=== PATIENT | female | born 1945 | race Caucasian/White ===

== ENCOUNTER → 2019-03-16 | Outpatient (CLI) | payer MEDICARE, OTHER ==
[~2019-03-16] MED LIST: ASPI-983 PO; BUDE10.2 IH; DIAZ10TA3 PO; DIAZ5TAB49 PO; FLUT16SP22 NS; FURO-125 PO; IPRA3AMP31 IH; LISI-552 PO; METO-333 PO; MINO2.5T PO; MONT10TA24 PO; NICO-588 TD; OMEP20TA33 PO; OMEP40CA27 PO; PARO20TA5 PO; POTA10CA43 PO; PRD10T PO; RT-ALBUINH IH; SIMV40TA25 PO; SPIR25TA5 PO; TIOT18CA2 IH
--- NOTE | 2019-03-16 14:45 | Diagnostic Imaging Report ---
PROCEDURE: MR imaging of the brain without contrast. TECHNIQUE: Multiplanar, multisequence MR imaging of the brain was performed without contrast. INDICATION: Headaches. COMPARISON: No prior MRI brain studies are available for comparison. FINDINGS: Ventricles and sulci are consistent with the patient's age. There are fairly significant periventricular and subcortical white matter signal abnormalities, likely on the basis of chronic microvascular ischemia. No diffusion restriction is identified to suggest acute ischemia. The normal expected flow voids within the carotid siphons are seen. No acute intra-axial or extra-axial hemorrhage is detected. The corpus callosum is unremarkable. The sella and parasellar structures are unremarkable. IMPRESSION: Changes of chronic microvascular ischemia. No acute intracranial process is detected. Dictated by: Dictated on workstation # [id number]
== END ==
LOC: RAD 13:45
PROVIDERS: ATTEND Nurse Practitioner Family
DX: G45.9 Transient cerebral ischemic attack, unspecified (principal)
CPT/HCPCS: 70551

== ENCOUNTER 2020-08-29 11:34 | Emergency (ER) | payer MEDICARE, OTHER ==
[~2020-08-29] VITALS: Ht 149 cm; Wt 65.0 kg
[~2020-08-29 11:34] MED LIST changes: +ASPI-1238 PO; -ASPI-983 PO; -LISI-552 PO; +LISI20TA26 PO; -MONT10TA24 PO; +MONT10TA32 PO; -NICO-588 TD; +NICO-685 TD; -OMEP40CA27 PO; +OMEP40CA6 PO
[2020-08-29] MEDS ORDERED: HYDROcodone/APAP 5 MG/325 MG (LORTAB) TAB PO ONE (11:45)
--- NOTE | 2020-08-29 11:46 | ED Upper Extremity ---
General Stated Complaint: R SHOULDER PAIN Source: patient Exam Limitations: no limitations History of Present Illness Date Seen by Provider: Aug 29, 2020 Time Seen by Provider: 11:43 Initial Comments To ER by [facility] from home with reports of a fall after she tripped over her oxygen tubing. She has COPD and wears oxygen at 3 L/min per nasal can nula all the time. She did not hit her head, denies any neck pain. She complains of pain to the proximal right humerus and right forearm. Denies any hip pain and she was able to walk to the EMS cot. No back pain no abdominal pain no chest pain or other extremity pain. Onset: just prior to arrival Severity: moderate Pain/Injury Location: right shoulder, right forearm Method of Injury: fell Modifying Factors: Worse With Movement Allergies and Home Medications Allergies Coded Allergies: Sulfa (Sulfonamide Antibiotics) (Verified Allergy, Unknown, 02/05/15) amlodipine (Verified Allergy, Unknown, 02/05/15) Home Medications Albuterol Sulfate 8.5 Gm Hfa.aer.ad, 2 PUFF IH Q4H PRN for SHORTNESS OF BREATH, (Reported) Aspirin 81 Mg Tablet.dr, 81 MG PO DAILY, (Reported) Budesonide/Formoterol Fumarate 10.2 Gm Hfa.aer.ad, 1 PUFF IH DAILY, (Reported) Diazepam 10 Mg Tablet, 10 MG PO BID PRN for ANXIETY Prescribed by: LORENA OSULLIVAN on 05/06/15904 Fluticasone Propionate 16 Gm Tucker.susp, 2 SPRAY NS DAILY, (Reported) Furosemide 20 Mg Tablet, 20 MG PO DAILY Prescribed by: LORENA OSULLIVAN on 05/06/15904 Hydrocodone/Acetaminophen 1 Each Tablet, 1 TAB PO Q4H PRN for PAIN-MODERATE (5- 7) Prescribed by: ARTEMIO ARMAS on 08/29/20 1336 Ipratropium/Albuterol Sulfate 3 Ml Ampul.neb, 3 ML IH Q6H PRN for SHORTNESS OF BREATH, (Reported) Lisinopril 20 Mg Tablet, 20 MG PO BID, (Reported) LAST FILLED #90 12-11-14 Metoprolol Tartrate 25 Mg Tablet, 25 MG PO BID, (Reported) Minoxidil 2.5 Mg Tablet, 2.5 MG PO BID, (Reported) LAST FILLED #360 08-21-14 Montelukast Sodium 10 Mg Tablet, 10 MG PO DAILY, (Reported) LAST FILLED #90 12-11-14 Nicotine 1 Each Patch.td24, 21 MG TD DAILY Prescribed by: LORENA OSULLIVAN on 05/06/15904 Omeprazole Magnesium 20 Mg Tablet.dr, 20 MG PO DAILY, (Reported) Paroxetine HCl 20 Mg Tablet, 20 MG PO DAILY, (Reported) LAST FILLED #90 05-28-14 Potassium Chloride 10 Meq Capsule.er, 10 MEQ PO DAILY Prescribed by: LORENA OSULLIVAN on 05/06/15904 Prednisone 10 Mg Tab, 10 MG PO DAILY Take 6 tabs(60mg)daily, decrease by 1 tab(10mg) every other day. Prescribed by: LORENA OSULLIVAN on 05/06/15904 Simvastatin 40 Mg Tablet, 40 MG PO HS, (Reported) LAST FILLED #30 03-13-15 Spironolactone 25 Mg Tablet, 12.5 MG PO DAILY, (Reported) TAKES 1/2 (25MG) TABLET Tiotropium [place] 1 Inh Aerp, 1 INH IH DAILY, (Reported) Patient Home Medication List Home Medication List Reviewed: Yes Review of Systems Constitutional: see HPI EENTM: see HPI Respiratory: no symptoms reported Cardiovascular: no symptoms reported Genitourinary: no symptoms reported Musculoskeletal: see HPI Skin: no symptoms reported Psychiatric/Neurological: No Symptoms Reported Past Qumfjyg-Bspnsv-Mjiyfv Hx Immunizations Up To Date Tetanus Booster (TDap): More than 5yrs Past Medical History CABG COPD Currently Using CPAP: No Currently Using BIPAP: No Hypertension Reproductive Disorders: No Sexually Transmitted Disease: No HIV/AIDS: No Bladder Infection, UTI-Chronic Gastroesophageal Reflux Sleep Difficulties, Anxiety, Suicide Attempts, Depression Adverse Reaction/Blood Tranf: No Family Medical History Patient reports no known family medical history. No Pertinent Family Hx Physical Exam Vital Signs Vital Signs - First Documented 08/29/20 08/29/20 11:40 13:07 Temp 36.4 Pulse 66 Resp 18 B/P (MAP) 136/72 (93) Pulse Ox 99 O2 Delivery Nasal Cannula O2 Flow Rate 2.00 Capillary Refill : Height, Weight, BMI Height: 4'11.00" Weight: 151lbs. 14.8oz. 68.443757mk; 30.49 BMI Method:Stated General Appearance: WD/WN, no apparent distress Neck: non-tender, full range of motion, normal inspection; No tender lateral, No tender midline; other ( She arrives in an ill fitting c-collar which was removed upon arrival and cleared clinically. No neck pain midline or lateral. She can flex her chin to chest and turn head side to side. No neck or head injury.) Respiratory: chest non-tender, lungs clear, normal breath sounds, no respiratory distress, no accessory muscle use Gastrointestinal: normal bowel sounds, non tender, soft Shoulder: normal inspection, limited ROM, pain Elbow/Forearm: normal inspection, Right, bone tenderness Wrist: Yes normal inspection, Yes non-tender Hand: normal inspection, non-tender Neurologic/Tendon: normal sensation, normal motor functions Neurologic/Psychiatric: alert, normal mood/affect, oriented x 3 Skin: normal color, warm/dry Procedures/Interventions Patient Education: Explained Benefits, Explained Risks, Pt. Ack. Understanding Agreement on procedure with pt: Yes Breath Sounds per Auscultation: Clear Airway Exam: Mouth opens >2 fingers, Neck Full Range of Motion Sedation Adminstration Time: 13:11 Total Time spent in CS 10 minutes Given Norflex Zofran and hydrocodone. After that once all staff were present including myself, RN, RT, we gave 10 mg of etomidate. She was then adequately sedated and with very gentle traction the shoulder very easily reduced. She was then placed in a sling and repeat x-rays were obtained. Few moments later patient awakened. Once her mentation was back to normal she was discharged. Re-examination Time: 14:00 Progress/Results/Core Measures Results/Orders My Orders Orders - ARTEMIO ARMAS APRN Shoulder, Right, 3 Views (08/29/20 11:40) Forearm, Right, 2 Views (08/29/20 11:40) Hydrocodone/Apap 5/325 Tablet (Lortab 5 (08/29/20 11:45) Etomidate Injection (Amidate Injection) (08/29/20 12:30) Ondansetron Injection (Zofran Injectio (08/29/20 12:30) Ns Iv 500 Ml (Sodium Chloride 0.9%) (08/29/20 12:30) Ed Iv/Invasive Line Start (08/29/20 12:28) Shoulder, Right, 1 View (08/29/20 12:41) Orphenadrine Inj (Ed Only) (Norflex Inje (08/29/20 13:00) Hydralazine Injection (Apresoline Inject (08/29/20 13:45) Medications Given in ED Current Medications Medications Dose Ordered Sig/Tamela Route Start Time Stop Time Status Last Admin Dose Admin Acetaminophen/ Hydrocodone Bitart 1 ea ONCE ONCE PO 08/29/20 11:45 08/29/20 11:46 DC 08/29/20 11:56 1 EA Etomidate 10 mg ONCE ONCE IV 08/29/20 12:30 08/29/20 12:31 DC 08/29/20 13:11 10 MG Hydralazine HCl 10 mg ONCE ONCE IV 08/29/20 13:45 08/29/20 13:46 DC 08/29/20 13:36 10 MG Ondansetron HCl 4 mg ONCE ONCE IVP 08/29/20 12:30 08/29/20 12:31 DC 08/29/20 12:59 4 MG Orphenadrine Citrate 30 mg ONCE ONCE IV 08/29/20 13:00 08/29/20 13:01 DC 08/29/20 12:59 30 MG Vital Signs/I&O 08/29/20 08/29/20 08/29/20 08/29/20 11:40 13:07 13:09 13:15 Temp 36.4 36.4 Pulse 66 66 69 Resp 18 18 12 18 B/P (MAP) 136/72 (93) 212/98 Pulse Ox 99 98 9 O2 Delivery Nasal Cannula Nasal Cannula Nasal Cannula Nasal Cannula O2 Flow Rate 2.00 2.00 2.00 08/29/20 08/29/20 08/29/20 08/29/20 13:25 13:35 13:44 13:55 Pulse 66 64 66 72 Resp 14 14 16 16 B/P (MAP) 200/92 204/90 199/78 143/66 Pulse Ox 97 98 99 O2 Delivery Nasal Cannula Nasal Cannula Nasal Cannula Nasal Cannula O2 Flow Rate 2.00 2.00 2.00 2.00 08/29/20 08/29/20 14:05 14:25 Temp 36.4 Pulse 73 67 Resp 16 16 B/P (MAP) 156/64 129/57 (93) Pulse Ox 93 93 O2 Delivery Room Air Room Air Diagnostic Imaging Diagonstic Imaging: CT Comments NAME: ADRIANA FELDER [facility] REC#: [id number] PT STATUS: REG ER : 1945 PHYSICIAN: ARTEMIO ARMAS APRN ADMIT DATE: 08/29/20/ER Draft Date of Exam:08/29/20 SHOULDER, RIGHT, 3 VIEWS INDICATION: Fall with right shoulder pain. AP, oblique, and transscapular views of the right shoulder are obtained at 12:12 p.m. There is anterior or subcoracoid dislocation of the right glenohumeral joint. There is no associated fracture. AC joint shows mild degenerative change. IMPRESSION: Anterior or subcoracoid dislocation of the right glenohumeral joint without associated fracture. Dictated on workstation # [id number] Dict: 08/29/20 1213 Trans: 08/29/20 1216 [facility] [id number] Interpreted by: JACKIE SPARROW MD Electronically signed by: Departure Impression Primary Impression: Shoulder dislocation Disposition: 01 HOME, SELF-CARE Condition: Stable Departure-Patient Inst. Decision time for Depature: 12:42 Referrals: NO,LOCAL PHYSICIAN (PCP) Primary Care Physician MONIQUE ALVAREZ MD, MICHAEL P MD Patient Instructions: Shoulder Dislocation (DC) Add. Discharge Instructions: 1. Wear the sling for the next week. Follow-up with orthopedics. Pain medication as directed. Scripts Hydrocodone/Acetaminophen (Hydrocodone-Acetamin 5-325 mg) 1 Each Tablet 1 TAB PO Q4H PRN for PAIN-MODERATE (5-7), #14 TAB Prov: ARTEMIO ARMAS APRN 08/29/20 ARTEMIO ARMAS APRN Aug 29, 2020 11:46
--- NOTE | 2020-08-29 12:16 | Diagnostic Imaging Report ---
INDICATION: Fall with right forearm pain. TECHNIQUE: AP and lateral views of the right forearm were obtained. FINDINGS: No fracture or acute bony abnormality is seen. IMPRESSION: Negative right forearm. Dictated by: Dictated on workstation # [id number]
--- NOTE | 2020-08-29 12:16 | Diagnostic Imaging Report ---
INDICATION: Fall with right shoulder pain. AP, oblique, and transscapular views of the right shoulder are obtained at 12:12 p.m. There is anterior or subcoracoid dislocation of the right glenohumeral joint. There is no associated fracture. AC joint shows mild degenerative change. IMPRESSION: Anterior or subcoracoid dislocation of the right glenohumeral joint without associated fracture. Dictated by: Dictated on workstation # [id number]
[2020-08-29] MEDS ORDERED: NS IV 500 ML 500 ML IV SCH (12:30)
[2020-08-29] MEDS ORDERED: ETOMIDATE IV SOLN 20 MG/10 ML VIAL IV ONE (12:30)
[2020-08-29] MEDS ORDERED: ONDANSETRON 4 MG/2 ML (SDV) Z0FRAN IVP ONE (12:30)
[2020-08-29] MEDS ORDERED: ORPHENADRINE 60 MG/2 ML (NORFLEX) AMP (ED ONLY) IV ONE (13:00)
[2020-08-29] MEDS ORDERED: ACHD5005 PO (13:35)
[2020-08-29] MEDS ORDERED: hydrALAZINE (APESOLINE) 20 MG/ML VIAL IV ONE (13:45)
--- NOTE | 2020-08-29 13:54 | Diagnostic Imaging Report ---
INDICATION: Postreduction. COMPARISON: Imaging from the same date. TECHNIQUE: Single frontal radiograph of the right shoulder dated 08/29/2020. FINDINGS: Improved positioning of the glenohumeral joint relationship, appearing appropriate based upon the single frontal radiograph. Mild degenerative changes of the acromioclavicular joint. No acute fracture identified. IMPRESSION: Interval reduction of previously noted glenohumeral joint dislocation. This could be confirmed with a scapular Y view. Dictated by: Dictated on workstation # [id number]
[2020-08-29 14:25] VITALS: BP 129/57
== END 2020-08-29 14:28 | disposition home or self-care (01) ==
LOC: EDUNIT# 11:34 → ER 11:36
DX: S43.004A Unspecified dislocation of right shoulder joint, initial encounter (principal); F41.9 Anxiety disorder, unspecified; I10 Essential (primary) hypertension; K21.9 Gastro-esophageal reflux disease without esophagitis; J44.9 Chronic obstructive pulmonary disease, unspecified; F32.9 Major depressive disorder, single episode, unspecified; Z79.82 Long term (current) use of aspirin; Z79.52 Long term (current) use of systemic steroids; Z79.899 Other long term (current) drug therapy; W01.0XXA Fall on same level from slipping, tripping and stumbling without subsequent striking against object, initial encounter
CPT/HCPCS: 73020; 73030; 73090; 93041; 99285; A4565

== ENCOUNTER → 2020-09-09 | Outpatient (CLI) | payer MEDICARE, OTHER ==
[~2020-09-09] MED LIST changes: +ACHD5005 PO
--- NOTE | 2020-09-09 10:49 | Diagnostic Imaging Report ---
INDICATION: Follow-up dislocation. COMPARISON: 08/29/2020 FINDINGS: Two radiographic views of the right shoulder were obtained. Glenohumeral joint space remains appropriate. No acute osseous abnormality is seen. There is no evidence of acute fracture or dislocation. No unexpected radiopaque foreign bodies are identified. Included portions of the right lung are clear. IMPRESSION: 1. No acute abnormality of the right shoulder. Dictated by: Dictated on workstation # [id number]
== END ==
LOC: ORTHO 10:15
PROVIDERS: ATTEND Orthopaedic Surgery
DX: S43.014D Anterior dislocation of right humerus, subsequent encounter (principal); X58.XXXD Exposure to other specified factors, subsequent encounter
CPT/HCPCS: 73030; G0463; 99203

== ENCOUNTER → 2020-09-25 | Outpatient (CLI) | payer MEDICARE, OTHER | LOC: ORTHO 08:20 | PROVIDERS: ATTEND Orthopaedic Surgery | DX: S43.014A Anterior dislocation of right humerus, initial encounter (principal); X58.XXXA Exposure to other specified factors, initial encounter | CPT/HCPCS: 99212 ==

== ENCOUNTER → 2020-10-16 | Outpatient (CLI) | payer MEDICARE, OTHER | LOC: ORTHO 10:19 | PROVIDERS: ATTEND Orthopaedic Surgery | DX: S43.014A Anterior dislocation of right humerus, initial encounter (principal); X58.XXXA Exposure to other specified factors, initial encounter | CPT/HCPCS: 99212 ==

== ENCOUNTER 2022-02-12 11:50 | Inpatient (IN) | payer MEDICARE, OTHER ==
[~2022-02-12] VITALS: Ht 165 cm; Wt 64.4 kg
[~2022-02-12 11:50] MED LIST changes: +ALBU8.5H6 IH; +MONT-40 PO; -MONT10TA32 PO; -RT-ALBUINH IH
--- NOTE | 2022-02-12 12:04 | ED Respiratory ---
General Chief Complaint: Respiratory Problems Stated Complaint: SOB Source: patient History of Present Illness Date Seen by Provider: Feb 12, 2022 Time Seen by Provider: 11:50 Initial Comments Patient is a 76-year-old who presents to the emergency room chief complaint of worsening shortness of breath, productive cough subjective fevers and chills over the last week. She wears 3-1/2 L of oxygen mostly at night but in the last week where he gets throughout the day as well. She took off her oxygen this morning to go smoke a cigarette and became profoundly more dyspneic. She was found to have sats in the mid 80s on her 3-1/2 L on EMS arrival. She states her cough is productive of green sputum. She saw her nurse practitioner about a week ago and was given a cough medication that she states "did not help". She denies chest pain. She has had bypass back in 2011. She does not currently follow with a grassland conservationist. She does not think she has a history of congestive heart failure. No nausea or vomiting. No problems with bowel or bladder. She states she takes her medications every day, specifically the ones in the morning but occasionally misses her night meds. She did have a DuoNeb breathing treatment prior to arrival. Only sick contact is her neighbor. Unknown diagnosis. Timing/Duration: week, getting worse Severity: severe Prior Episodes/Possible Cause: frequent episodes Modifying Factors: Improves With Albuterol Inhaler, Improves With Albuterol Nebulizer Associated Symptoms: fever/chills, lightheadedness, nasal congestion, shortness of breath Allergies and Home Medications Allergies Coded Allergies: Sulfa (Sulfonamide Antibiotics) (Verified Allergy, Unknown, 02/05/15) amlodipine (Verified Allergy, Unknown, 02/05/15) Patient Home Medication List Home Medication List Reviewed: Yes Albuterol Sulfate (Ventolin Hfa) 8.5 Gm Hfa.aer.ad, 2 PUFF IH Q4H PRN for SHORTNESS OF BREATH, (Reported) Entered as Reported by: STACIE VITAL on 04/29/15 1129 Aspirin (Aspirin EC) 81 Mg Tablet.dr, 81 MG PO DAILY, (Reported) Entered as Reported by: STACIE VITAL on 04/29/15 1129 Budesonide/Formoterol Fumarate (Symbicort 160-4.5 Mcg Inhaler) 10.2 Gm Hfa.aer.ad, 1 PUFF IH DAILY, (Reported) Entered as Reported by: STACIE VITAL on 04/29/15 1129 Diazepam (Diazepam) 10 Mg Tablet, 10 MG PO BID PRN for ANXIETY Prescribed by: LORENA OSULLVIAN on 05/06/15 09 Fluticasone Propionate (Fluticasone Propionate) 16 Gm Tinnie.susp, 2 SPRAY NS DAILY, (Reported) Entered as Reported by: CORETTA FORTUNE on 02/05/15 151 Furosemide (Lasix) 20 Mg Tablet, 20 MG PO DAILY Prescribed by: LORENA OSULLIVAN on 05/06/15 09 Hydrocodone/Acetaminophen (Hydrocodone-Acetamin 5-325 mg) 1 Each Tablet, 1 TAB PO Q4H PRN for PAIN-MODERATE (5-7) Prescribed by: ARTEMIO ARMAS on 08/29/20 1336 Ipratropium/Albuterol Sulfate (Iprat-Albut 0.5-3(2.5) mg/3 ml) 3 Ml Ampul.neb, 3 ML IH Q6H PRN for SHORTNESS OF BREATH, (Reported) Entered as Reported by: STACIE VITAL on 04/29/15 1133 Lisinopril (Lisinopril) 20 Mg Tablet, 20 MG PO BID, (Reported) Entered as Reported by: CORETTA FORTUNE on 02/05/15 151 Metoprolol Tartrate (Metoprolol Tartrate) 25 Mg Tablet, 25 MG PO BID, (Reported) Entered as Reported by: STACIE VITAL on 04/29/15 1129 Minoxidil (Minoxidil) 2.5 Mg Tablet, 2.5 MG PO BID, (Reported) Entered as Reported by: STACIE VITAL on 04/29/15 1145 Montelukast Sodium (Montelukast Sodium) 10 Mg Tablet, 10 MG PO DAILY, (Reported) Entered as Reported by: CORETTA FORTUNE on 02/05/15 151 Nicotine (Nicotine Patch) 1 Each Patch.td24, 21 MG TD DAILY Prescribed by: LORENA OSULLIVAN on 05/06/15 09 Omeprazole Magnesium (Prilosec Otc) 20 Mg Tablet.dr, 20 MG PO DAILY, (Reported) Entered as Reported by: STACIE VITAL on 04/29/15 1129 Paroxetine HCl (Paroxetine HCl) 20 Mg Tablet, 20 MG PO DAILY, (Reported) Entered as Reported by: STACIE VITAL on 04/29/15 1145 Potassium Chloride (Potassium Chloride) 10 Meq Capsule.er, 10 MEQ PO DAILY Prescribed by: LORENA OSULLIVAN on 05/06/15 09 Prednisone (Prednisone) 10 Mg Tab, 10 MG PO DAILY Prescribed by: LORENA OSULLIVAN on 05/06/15 0905 Simvastatin (Simvastatin) 40 Mg Tablet, 40 MG PO HS, (Reported) Entered as Reported by: STACIE VITAL on 04/29/15 1129 Spironolactone (Spironolactone) 25 Mg Tablet, 12.5 MG PO DAILY, (Reported) Entered as Reported by: CORETTA FORTUNE on 02/05/15 1511 Tiotropium Giltner (Spiriva) 1 Inh Aerp, 1 INH IH DAILY, (Reported) Entered as Reported by: STACIE VITAL on 04/29/15 1207 Review of Systems Review of Systems Constitutional: see HPI, chills, fever EENTM: nose congestion Respiratory: cough, phlegm (green), short of breath Cardiovascular: no symptoms reported Gastrointestinal: loss of appetite Genitourinary: no symptoms reported Musculoskeletal: no symptoms reported Skin: no symptoms reported Psychiatric/Neurological: No Symptoms Reported All Other Systems Reviewed Negative Unless Noted: Yes Past Hqisjtm-Siqovc-Nzipsm Hx Immunizations Up To Date Tetanus Booster (TDap): More than 5yrs Past Medical History CABG COPD Currently Using CPAP: No Currently Using BIPAP: No Hypertension Reproductive Disorders: No Sexually Transmitted Disease: No HIV/AIDS: No Bladder Infection, UTI-Chronic Gastroesophageal Reflux Sleep Difficulties, Anxiety, Suicide Attempts, Depression Adverse Reaction/Blood Tranf: No Family Medical History Patient reports no known family medical history. No Pertinent Family Hx Physical Exam Capillary Refill : Height: 4'11.00" Weight: 151lbs. 14.8oz. [id number]; 29.00 BMI Method:Stated General Appearance: WD/WN, mild distress, other (appears chronically ill) Eyes: Bilateral Eye Normal Inspection, Bilateral Eye PERRL, Bilateral Eye EOMI HEENT: other (dry oral mucosa) Neck: full range of motion, normal inspection Respiratory: accessory muscle use, crackles (throughout both lungs; no significant wheezing), rales, rhonchi Cardiovascular: regular rate, rhythm Gastrointestinal: non tender, soft Extremities: normal range of motion, non-tender, normal inspection, pedal edema (trace) Neurologic/Psychiatric: alert, normal mood/affect, oriented x 3, other (mentation a little slow; ) Skin: normal color Focused Exam Lactate Level 02/12/22 12:25: Lactic Acid Level 0.88 Lactic Acid Level Laboratory Tests Test 02/12/22 12:25 Lactic Acid Level 0.88 MMOL/L (0.50-2.00) Procedures/Interventions Patient Education: Explained Benefits, Explained Risks, Pt. Ack. Understanding Breath Sounds per Auscultation: Clear Airway Exam: Mouth opens >2 fingers, Neck Full Range of Motion Sedation Adminstration Time: 1311 Re-examination Time: 1400 Progress/Results/Core Measures Suspected Sepsis SIRS Temperature: Pulse: Respiratory Rate: Laboratory Tests 02/12/22 12:25: White Blood Count 11.4H Blood Pressure / Mean: 02/12/22 12:25: Lactic Acid Level 0.88 Laboratory Tests 02/12/22 12:25: Creatinine 0.65, INR Comment 0.9, Platelet Count 178, Total Bilirubin 0.2 Results/Orders Lab Results Laboratory Tests Test 02/12/22 12:25 02/12/22 13:02 Range/Units White Blood Count 11.4 H 4.3-11.0 10^3/uL Red Blood Count 4.73 3.80-5.11 10^6/uL Hemoglobin 14.0 11.5-16.0 g/dL Hematocrit 45 35-52 % Mean Corpuscular Volume 94 80-99 fL Mean Corpuscular Hemoglobin 30 25-34 pg Mean Corpuscular Hemoglobin Concent 32 32-36 g/dL Red Cell Distribution Width 12.9 10.0-14.5 % Platelet Count 178 130-400 10^3/uL Mean Platelet Volume 12.5 H 9.0-12.2 fL Immature Granulocyte % (Auto) 1 % Neutrophils (%) (Auto) 88 H 42-75 % Lymphocytes (%) (Auto) 5 L 12-44 % Monocytes (%) (Auto) 7 0-12 % Eosinophils (%) (Auto) 0 0-10 % Basophils (%) (Auto) 0 0-10 % Neutrophils # (Auto) 10.0 H 1.8-7.8 10^3/uL Lymphocytes # (Auto) 0.6 L 1.0-4.0 10^3/uL Monocytes # (Auto) 0.7 0.0-1.0 10^3/uL Eosinophils # (Auto) 0.0 0.0-0.3 10^3/uL Basophils # (Auto) 0.0 0.0-0.1 10^3/uL Immature Granulocyte # (Auto) 0.1 0.0-0.1 10^3/uL Neutrophils % (Manual) 90 % Lymphocytes % (Manual) 2 % Monocytes % (Manual) 3 % Eosinophils % (Manual) 0 % Basophils % (Manual) 0 % Band Neutrophils 5 % Blood Morphology Comment NORMAL Prothrombin Time 12.3 12.2-14.7 SEC INR Comment 0.9 0.8-1.4 Activated Partial Thromboplast Time 24 24-35 SEC Sodium Level 127 L 135-145 MMOL/L Potassium Level 6.8 *H 3.6-5.0 MMOL/L Chloride Level 93 L 98-107 MMOL/L Carbon Dioxide Level 23 21-32 MMOL/L Anion Gap 11 5-14 MMOL/L Blood Urea Nitrogen 9 7-18 MG/DL Creatinine 0.65 0.60-1.30 MG/DL Estimat Glomerular Filtration Rate 92 BUN/Creatinine Ratio 14 Glucose Level 115 H 70-105 MG/DL Lactic Acid Level 0.88 0.50-2.00 MMOL/L Calcium Level 10.2 H 8.5-10.1 MG/DL Corrected Calcium 10.3 H 8.5-10.1 MG/DL Magnesium Level 1.2 L 1.6-2.4 MG/DL Total Bilirubin 0.2 0.1-1.0 MG/DL Aspartate Amino Transf (AST/SGOT) 46 H 5-34 U/L Alanine Aminotransferase (ALT/SGPT) 18 0-55 U/L Alkaline Phosphatase 91 40-136 U/L Myoglobin 125.4 H 10.0-92.0 NG/ML Troponin I < 0.028 <0.028 NG/ML B-Type Natriuretic Peptide 202.5 H <100.0 PG/ML Total Protein 8.5 H 6.4-8.2 GM/DL Albumin 3.9 3.2-4.5 GM/DL Procalcitonin 0.08 <0.10 NG/ML Serum Alcohol < 10 <10 MG/DL Blood Gas Puncture Site LT BRACHIAL Blood Gas Patient Temperature 98.8 Arterial Blood pH 7.24 *L 7.37-7.43 Arterial Blood Partial Pressure CO2 74 *H 35-45 MMHG Arterial Blood Partial Pressure O2 108 H 79-93 MMHG Arterial Blood HCO3 31 H 23-27 MMOL/L Arterial Blood Total CO2 33.0 H 21.0-31.0 MMOL/L Arterial Blood Oxygen Saturation 94 94-100 % Arterial Blood Base Excess 3.9 H -2.5-2.5 MMOL/L Mundo Test NA Blood Gas Ventilator Setting NO Blood Gas Inspired Oxygen 4L My Orders Orders - XIMENA CORTES MD Cbc With Automated Diff (02/12/22 12:00) Magnesium (02/12/22 12:00) Chest 1 View, Ap/Pa Only (02/12/22 12:00) Ekg Tracing (02/12/22 12:00) Comprehensive Metabolic Panel (02/12/22 12:00) Myoglobin Serum (02/12/22 12:00) Protime With Inr (02/12/22 12:00) Partial Thromboplastin Time (02/12/22 12:00) O2 (02/12/22 12:00) Monitor-Rhythm Ecg Trace Only (02/12/22 12:00) Lipid Panel (02/13/22 06:00) Ed Iv/Invasive Line Start (02/12/22 12:00) Troponin I Cheo (02/12/22 12:00) Procalcitonin (Pct) (02/12/22 12:00) Bnp Cheo (02/12/22 12:00) Blood Culture (02/12/22 12:00) Lactic Acid Analyzer (02/12/22 12:00) Covid 19 Inhouse Test (02/12/22 12:04) Influenza A And B By Pcr (02/12/22 12:04) Isolation Central Supply Req (02/12/22 12:04) Alcohol (02/12/22 12:29) Blood Culture (02/12/22 12:25) Manual Differential (02/12/22 12:25) Arterial Blood Gas (02/12/22 12:59) Arterial Blood Draw - Obtain (02/12/22 ) Ed Admission (Communication) (02/12/22 13:25) Communication For Respiratory (02/12/22 13:25) Methylprednisolone Sod Succ (Solu-Medrol (02/12/22 13:30) Vital Signs/I&O Capillary Refill : ECG Initial ECG Impression Date: Feb 12, 2022 Initial ECG Impression Time: 12:20 Initial ECG Rate: 82 Initial ECG Rhythm: Normal Sinus Initial ECG Intervals: Normal Comment some baseline artifact in lead V6; no ST elevation or depression Diagnostic Imaging Diagonstic Imaging: Xray Plain Films/CT/US/NM/MRI: chest Comments [facility] [place] NAME: ADRIANA FELDER [facility] REC#: [id number] PT STATUS: REG ER : 1945 PHYSICIAN: XIMENA CORTES MD ADMIT DATE: 02/12/22/ER Draft Date of Exam:02/12/22 CHEST 1 VIEW, AP/PA ONLY EXAMINATION: Chest 1 view HISTORY: Chest pain COMPARISON: 04/30/2015 FINDINGS: Heart size and pulmonary vasculature are normal. The lungs are clear without consolidation, pleural effusion, or pneumothorax. The osseous structures are intact. Surgical changes from median sternotomy. IMPRESSION: 1. No acute radiographic abnormality in the chest. Dictated on workstation # [id number] Dict: 02/12/22 1302 Trans: 02/12/22 1303 [facility] [id number] Interpreted by: MATTHIAS MARTINEZ DO Electronically signed by: Departure Communication (Admissions) Time/Spoke to Admitting Phy: 13:[address] Tuttle; IP to ICU Impression Primary Impression: Acute exacerbation of chronic obstructive pulmonary disease (COPD) Additional Impressions: Bronchitis Respiratory acidosis with metabolic acidosis Disposition: ADMITTED INPATIENT Condition: Critical Admissions Decision to Admit Reason: Admit from ER (General) Decision to Admit/Date: Feb 12, 2022 Time/Decision to Admit Time: 13:25 Departure-Patient Inst. Referrals: NO,LOCAL PHYSICIAN (PCP/Family) Primary Care Physician XIMENA CORTES MD Feb 12, 2022 12:04
[2022-02-12 12:48] LABS: BASOPHILS % (AUTO) 0 % (0-10); EOSINOPHILS % (AUTO) 0 % (0-10); HEMATOCRIT 45 % (35-52); LYMPHOCYTES # (AUTO) 0.6 10^3/uL (1.0-4.0); LYMPHOCYTES % (AUTO) 5 % (12-44); MEAN CORPUSCULAR HEMOGLOBIN 30 pg (25-34); MEAN CORPUSCULAR HGB CONC 32 g/dL (32-36); MEAN CORPUSCULAR VOLUME 94 fL (80-99); MEAN PLATELET VOLUME 12.5 fL (9.0-12.2); MONOCYTES # (AUTO) 0.7 10^3/uL (0.0-1.0); MONOCYTES % (AUTO) 7 % (0-12); NEUTROPHILS % (AUTO) 88 % (42-75); PLATELET COUNT 178 10^3/uL (130-400); WHITE BLOOD COUNT 11.4 10^3/uL (4.3-11.0)
[2022-02-12 12:58] LABS: ALBUMIN 3.9 GM/DL (3.2-4.5)
[2022-02-12 12:59] LABS: CALCIUM 10.2 MG/DL (8.5-10.1); INR 0.9 (0.8-1.4); PROTHROMBIN TIME PATIENT 12.3 SEC (12.2-14.7)
[2022-02-12 13:01] LABS: TOTAL PROTEIN 8.5 GM/DL (6.4-8.2)
[2022-02-12 13:02] LABS: BILIRUBIN,TOTAL 0.2 MG/DL (0.1-1.0)
--- NOTE | 2022-02-12 13:03 | Diagnostic Imaging Report ---
EXAMINATION: Chest 1 view HISTORY: Chest pain COMPARISON: 04/30/2015 FINDINGS: Heart size and pulmonary vasculature are normal. The lungs are clear without consolidation, pleural effusion, or pneumothorax. The osseous structures are intact. Surgical changes from median sternotomy. IMPRESSION: 1. No acute radiographic abnormality in the chest. Dictated by: Dictated on workstation # [id number]
[2022-02-12 13:04] LABS: CREATININE SERUM 0.65 MG/DL (0.60-1.30)
[2022-02-12 13:05] LABS: ABG BASE EXCESS 3.9 MMOL/L (-2.5-2.5); ABG OXYGEN SATURATION 94 % (94-100); ABG PO2 108 MMHG (79-93)
[2022-02-12 13:07] LABS: MAGNESIUM 1.2 MG/DL (1.6-2.4)
[2022-02-12 13:11] LABS: BAND NEUTROPHILS 5 %; BASOPHILS % (MANUAL) 0 %; EOSINOPHILS % (MANUAL) 0 %; LYMPHOCYTES % (MANUAL) 2 %; MONOCYTES % (MANUAL) 3 %; NEUTROPHILS % (MANUAL) 90 %; RBC MORPH NORMAL
[2022-02-12 13:13] LABS: ABG PCO2 74 MMHG (35-45); ABG PH 7.24 (7.37-7.43); INSPIRED O2 4L; PATIENT TEMP 98.8; VENTILATOR NO
[2022-02-12 13:14] LABS: POTASSIUM 6.8 MMOL/L (3.6-5.0)
[2022-02-12] MEDS ORDERED: methylPREDNISolone 125 MG (Solu-MEDROL) VIAL IVP ONE (13:30)
[2022-02-12 13:43] VITALS: BP_DIAS 194
[2022-02-12] MEDS ORDERED: RT-ALBUTEROL SULF 2.5 MG/3 ML PRE-MIX VIAL INH ONE (13:45)
--- NOTE | 2022-02-12 14:07 | History & Physical ---
BRIANA LOZADA 02/12/22 1407: History of Present Illness History of Present Illness Reason for visit/HPI Ms. Mobley is a 76 year old female with PMHx of CAD, CABG in 2011, COPD, and HTN who presents to the [facility] ED with progressive SOA, productive cough, subjective fever and chills, sore throat, head ache, nausea, and one episode of emesis this morning. Patient reports her symptoms began approximately 1 week ago. Patient states she usually wears 3.5 L of supplemental O2 at night but has been requiring O2 during the day throughout the past week. Patient states this morning she removed her O2 to smoke a cigarette and became increasingly SOB. Patient states she used her inhaler this morning around 10:00 that slightly improved her symptoms. Patient states she currently feels dizzy and groggy. Patient denies chest pain at this time. While at rest patient denies SOA. Patient has been admitted to Hospitalist service to receive BiPap therapy and for medical management. Patient is agreeable to admission. Date of Admission 02/12/2022 Date Seen by a Provider: Feb 12, 2022 Time Seen by a Provider: 13:15 I consulted on this patient on 02/12/22 13:58 Attending Physician Anum,Local Physician Admitting Physician Admitting Physician: Dr. Schuster Consult Allergies and Home Medications Allergies Coded Allergies: Sulfa (Sulfonamide Antibiotics) (Verified Allergy, Unknown, 02/05/15) amlodipine (Verified Allergy, Unknown, 02/05/15) Patient Home Medication List Home Medication List Reviewed: Yes Albuterol Sulfate (Ventolin Hfa) 8.5 Gm Hfa.aer.ad, 2 PUFF IH Q4H PRN for SHORTNESS OF BREATH, (Reported) Entered as Reported by: STACIE VITAL on 04/29/15 1129 Aspirin (Aspirin EC) 81 Mg Tablet.dr, 81 MG PO DAILY, (Reported) Entered as Reported by: STACIE VITAL on 04/29/15 1129 Budesonide/Formoterol Fumarate (Symbicort 160-4.5 Mcg Inhaler) 10.2 Gm Hfa.aer.ad, 1 PUFF IH DAILY, (Reported) Entered as Reported by: STACIE VITAL on 04/29/15 1129 Diazepam (Diazepam) 10 Mg Tablet, 10 MG PO BID PRN for ANXIETY Prescribed by: LORENA OSULLIVAN on 05/06/15 09 Fluticasone Propionate (Fluticasone Propionate) 16 Gm [place].susp, 2 SPRAY NS DAILY, (Reported) Entered as Reported by: CORETTA FORTUNE on 02/05/15 151 Furosemide (Lasix) 20 Mg Tablet, 20 MG PO DAILY Prescribed by: LORENA OSULLIVAN on 05/06/15 09 Hydrocodone/Acetaminophen (Hydrocodone-Acetamin 5-325 mg) 1 Each Tablet, 1 TAB PO Q4H PRN for PAIN-MODERATE (5-7) Prescribed by: ARTEMIO ARMAS on 08/29/20 1336 Ipratropium/Albuterol Sulfate (Iprat-Albut 0.5-3(2.5) mg/3 ml) 3 Ml Ampul.neb, 3 ML IH Q6H PRN for SHORTNESS OF BREATH, (Reported) Entered as Reported by: STACIE VITAL on 04/29/15 1133 Lisinopril (Lisinopril) 20 Mg Tablet, 20 MG PO BID, (Reported) Entered as Reported by: CORETTA FORTUNE on 02/05/15 151 Metoprolol Tartrate (Metoprolol Tartrate) 25 Mg Tablet, 25 MG PO BID, (Reported) Entered as Reported by: STACIE VITAL on 04/29/15 1129 Minoxidil (Minoxidil) 2.5 Mg Tablet, 2.5 MG PO BID, (Reported) Entered as Reported by: STACIE VITAL on 04/29/15 1145 Montelukast Sodium (Montelukast Sodium) 10 Mg Tablet, 10 MG PO DAILY, (Reported) Entered as Reported by: CORETTA FORTUNE on 02/05/15 151 Nicotine (Nicotine Patch) 1 Each Patch.td24, 21 MG TD DAILY Prescribed by: LORENA OSULLIVAN on 05/06/15 09 Omeprazole Magnesium (Prilosec Otc) 20 Mg Tablet.dr, 20 MG PO DAILY, (Reported) Entered as Reported by: STACIE VITAL on 04/29/15 1129 Paroxetine HCl (Paroxetine HCl) 20 Mg Tablet, 20 MG PO DAILY, (Reported) Entered as Reported by: STACIE VITAL on 04/29/15 1145 Potassium Chloride (Potassium Chloride) 10 Meq Capsule.er, 10 MEQ PO DAILY Prescribed by: LORENA OSULLIVAN on 05/06/15904 Prednisone (Prednisone) 10 Mg Tab, 10 MG PO DAILY Prescribed by: LORENA OSULLIVAN on 05/06/15904 Simvastatin (Simvastatin) 40 Mg Tablet, 40 MG PO HS, (Reported) Entered as Reported by: STACIE VITAL on 04/29/15 1129 Spironolactone (Spironolactone) 25 Mg Tablet, 12.5 MG PO DAILY, (Reported) Entered as Reported by: CORETTA FORTUNE on 02/05/15 1511 Tiotropium [place] (Spiriva) 1 Inh Aerp, 1 INH IH DAILY, (Reported) Entered as Reported by: STACIE VITAL on 04/29/15 1207 Past Iakvtcd-Bcmvlq-Yyxsfj Hx Patient Social History Tobacco Use?: Yes Tobacco type used: Cigarettes Smoking Status: Current Everyday Smoker (1.5 ppd) Substance use?: No Alcohol Use?: No Immunizations Up To Date Date of Influenza Vaccine: Feb 05, 2015 Date of Pneumonia Vaccine: Jan 29, 2014 Current Status Primary Language: Guatemalan Past Medical History Surgeries: CABG, Hysterectomy (partial) COPD Currently Using CPAP: No Currently Using BIPAP: No 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 Heart Disease (father), COPD (father) Review of Systems Constitutional: malaise EENTM: throat pain Respiratory: cough, phlegm (productive cough with green sputum), short of breath, wheezing Cardiovascular: no symptoms reported; No chest pain Gastrointestinal: nausea, vomiting (one episode of emesis this morning) Genitourinary: frequency (increased frequency ), incontinence (associated with frequency coughing) Musculoskeletal: no symptoms reported Skin: no symptoms reported Psychiatric/Neurological: Other ("groggy") All Other Systems Reviewed Negative Unless Noted: Yes Physical Exam Vital Signs Vital Signs - First Documented 02/12/22 13:43 Pulse 74 Resp 19 Pulse Ox 98 O2 Flow Rate 30.00 Capillary Refill : Height, Weight, BMI Height: 4'11.00" Weight: 151lbs. 14.8oz. 68.270489mz; 29.00 BMI Method:Stated General Appearance: Moderate Distress (moderate respiratory distress) HEENT: PERRL/EOMI, Other (unable to visualize pharnyx) Respiratory: No Accessory Muscle Use, Crackles (bilateral), Decreased Breath Sounds, Wheezing (expiratory wheezing bilaterally, more prominent on L) Cardiovascular: Regular Rate, Rhythm, No Edema Gastrointestinal: Normal Bowel Sounds, Non Tender, Soft Extremity: No Pedal Edema Neurologic/Psychiatric: Alert, No Motor/Sensory Deficits Skin: Normal Color, Warm/Dry Assessment/Plan Assessment and Plan 1. Acute hypoxic respiratory failure secondary to COPD exacerbation with respiratory acidosis -BiPap therapy for respiratory support and admission to ICU for management -Nebulized breathing treatments with albuterol-ipratropium 2.5mg-0.5mg Q1H for 2-3 doses -> Q2H for 2 additional doses as needed -Systemic glucocorticoids - methylprednisolone 125mg once IVP -Empiric antibiotic therapy with azithromycin 500mg PO daily for 3 days -Repeat BMP -AM CBC -Diazepam 5mg once for anxiety related to BiPap 2. Influenza A -Patient has had symptoms for at least one week thus does not meet requirement for Tamiflu therapy -Continue respiratory support -Pain management with tylenol 325mg PO PRN Q4-6H 3. HTN with BP of 216/84 in ED -Resume home medication metoprolol 25mg PO BID -Monitor BP 4. Hypomagnesemia with Mg of 1.2 -Replace with magnesium 100ml IV daily -Repeat Mg with AM lab studies Admission Diagnosis Admission Status: Inpatient Order (span 2 midnights) Reason for Inpatient Admission: Acute hypoxic respiratory failure secondary to COPD exacerbation with respiratory acidosis MALIKA SCHUSTER MD 02/12/22 1438: Allergies and Home Medications Allergies Coded Allergies: Sulfa (Sulfonamide Antibiotics) (Verified Allergy, Unknown, 02/05/15) amlodipine (Verified Allergy, Unknown, 02/05/15) Patient Home Medication List Albuterol Sulfate (Ventolin Hfa) 8.5 Gm Hfa.aer.ad, 2 PUFF IH Q4H PRN for SHORTNESS OF BREATH, (Reported) Entered as Reported by: STACIE VITAL on 04/29/15 1129 Aspirin (Aspirin EC) 81 Mg Tablet.dr, 81 MG PO DAILY, (Reported) Entered as Reported by: STACIE VITAL on 04/29/15 1129 Budesonide/Formoterol Fumarate (Symbicort 160-4.5 Mcg Inhaler) 10.2 Gm Hfa.ae r.ad, 1 PUFF IH DAILY, (Reported) Entered as Reported by: STACIE VITAL on 04/29/15 1129 Diazepam (Diazepam) 10 Mg Tablet, 10 MG PO BID PRN for ANXIETY Prescribed by: LORENA OSULLIVAN on 05/06/15 09 Fluticasone Propionate (Fluticasone Propionate) 16 Gm [place].susp, 2 SPRAY NS DAILY, (Reported) Entered as Reported by: CORETTA FORTUNE on 02/05/15 151 Furosemide (Lasix) 20 Mg Tablet, 20 MG PO DAILY Prescribed by: LORENA OSULLIVAN on 05/06/15 09 Hydrocodone/Acetaminophen (Hydrocodone-Acetamin 5-325 mg) 1 Each Tablet, 1 TAB PO Q4H PRN for PAIN-MODERATE (5-7) Prescribed by: ARTEMIO ARMAS on 08/29/20 1336 Ipratropium/Albuterol Sulfate (Iprat-Albut 0.5-3(2.5) mg/3 ml) 3 Ml Ampul.neb, 3 ML IH Q6H PRN for SHORTNESS OF BREATH, (Reported) Entered as Reported by: STACIE VITAL on 04/29/15 1133 Lisinopril (Lisinopril) 20 Mg Tablet, 20 MG PO BID, (Reported) Entered as Reported by: CORETTA FORTUNE on 02/05/15 151 Metoprolol Tartrate (Metoprolol Tartrate) 25 Mg Tablet, 25 MG PO BID, (Reported) Entered as Reported by: STACIE VITAL on 04/29/15 1129 Minoxidil (Minoxidil) 2.5 Mg Tablet, 2.5 MG PO BID, (Reported) Entered as Reported by: STACIE VITAL on 04/29/15 1145 Montelukast Sodium (Montelukast Sodium) 10 Mg Tablet, 10 MG PO DAILY, (Reported) Entered as Reported by: CORETTA FORTUNE on 02/05/15 151 Nicotine (Nicotine Patch) 1 Each Patch.td24, 21 MG TD DAILY Prescribed by: LORENA OSULLIVAN on 05/06/15 09 Omeprazole Magnesium (Prilosec Otc) 20 Mg Tablet.dr, 20 MG PO DAILY, (Reported) Entered as Reported by: STACIE VITAL on 04/29/15 1129 Paroxetine HCl (Paroxetine HCl) 20 Mg Tablet, 20 MG PO DAILY, (Reported) Entered as Reported by: STACIE VITAL on 04/29/15 1145 Potassium Chloride (Potassium Chloride) 10 Meq Capsule.er, 10 MEQ PO DAILY Prescribed by: LORENA OSULLIVAN on 05/06/15 0905 Prednisone (Prednisone) 10 Mg Tab, 10 MG PO DAILY Prescribed by: LORENA OSULLIVAN on 05/06/15 0905 Simvastatin (Simvastatin) 40 Mg Tablet, 40 MG PO HS, (Reported) Entered as Reported by: STACIE VITAL on 04/29/15 1129 Spironolactone (Spironolactone) 25 Mg Tablet, 12.5 MG PO DAILY, (Reported) Entered as Reported by: CORETTA FORTUNE on 02/05/15 1511 Tiotropium [place] (Spiriva) 1 Inh Aerp, 1 INH IH DAILY, (Reported) Entered as Reported by: STACIE VITAL on 04/29/15 1207 Past Xyptbmk-Ooukwq-Xztogv Hx Family Medical History Patient reports no known family medical history. Assessment/Plan Assessment and Plan Patient was admitted to the hospital secondary to acute hypoxic and hypercapnic respiratory failure secondary to COPD from lower respiratory tract infection and influenza A. She required BiPAP therapy in the emergency department to maintain her respiratory status but is doing much better upon my exam. She is able to communicate with me but this is limited due to her BiPAP. She is being admitted to the ICU tonight and we will continue her on steroids. She does not have any infectious etiology so we will not begin any IV antibiotics. She is also unfortunately outside of the window for Tamiflu so we will not begin that either. Provide supportive care for her influenza diagnosis. MAT protocol has been ordered as well. If she continues to do well inform patient she can trial off BiPAP during dinnertime. Supervisory-Addendum Brief Verification & Attestation Participated in pt care: history, MDM, physical Personally performed: exam, history, MDM, supervision of care Care discussed with: Medical Student Procedures: n/a Results interpretation: Verified all documentation Verification and Attestation of Medical Student E/M Service A medical student performed and documented this service in my presence. I reviewed and verified all information documented by the medical student and made modifications to such information, when appropriate. I personally performed the physical exam and medical decision making. Malika Schuster, Feb 12, 2022,14:38 BRIANA LOZADA Feb 12, 2022 14:07 MALIKA SCHUSTER MD Feb 12, 2022 14:38
[2022-02-12 14:32] LABS: CALCIUM 10.6 MG/DL (8.5-10.1); CREATININE SERUM 0.63 MG/DL (0.60-1.30); POTASSIUM 4.9 MMOL/L (3.6-5.0)
[2022-02-12] MEDS ORDERED: MELATONIN 3 MG TABLET PO PRN ×2 (14:45→21:30)
[2022-02-12] MEDS ORDERED: polyethylene glycoL POWDER 17 GM (MIRALAX) PACK PO PRN (14:45)
[2022-02-12] MEDS ORDERED: ACETAMINOPHEN 325 MG TABLET PO PRN (14:45)
[2022-02-12] MEDS ORDERED: NS IV 500 ML 500 ML IV PRN (14:45)
[2022-02-12] MEDS ORDERED: RT-ALBUTEROL SULF 2.5 MG/3 ML PRE-MIX VIAL INH PRN (14:45)
[2022-02-12] MEDS ORDERED: ANTACID SUSP 30 ML UDC (MYLANTA) PO PRN (14:45)
[2022-02-12] MEDS ORDERED: MILK OF MAGNESIA 400 MG/5 ML 30 ML UDC PO PRN (14:45)
[2022-02-12] MEDS ORDERED: ONDANSETRON 4 MG/2 ML (SDV) Z0FRAN IV PRN (14:45)
[2022-02-12] MEDS ORDERED: CALCIUM CARBONATE 500 MG (TUMS) TAB.CHEW PO PRN (14:45)
[2022-02-12] MEDS: ENOXAPARIN 40 MG/0.4 ML (LOVENOX) SYR SC SCH (16:00)
--- NOTE | 2022-02-12 17:59 | Tele-ICU Consult ---
History of Present Illness History of Present Illness Date Seen by Provider: Feb 12, 2022 Time Seen by Provider: 17:59 Date of Admission (Tele-ICU Physician , consultation as per request of PCP Service provided via interactive audio and video telecommunications E-CARE system to a patient admitted to ICU bed in [facility]. Available chart/ vitals / labs / Images reviewed H&P is from ER notes Patient's information available about PMH, Shx, Fhx allergy reviewed inEMR. ROS as per chart and RN report Now in ICU, hemodynamically stable Video assessment done using teleICU camera, rest of exam as per RN Discussed with RN. Consultants: Hospital course: (02/12) 76F admittted with COPD exac d/t influenza A, hypercarbic, on Bipap A/P Acute hypoxic and hypercarbic resp failure ( on chronic - was on NIPPV in ER , better now on NC o2 ( TRANSCRIPTION 3 l o2 at night - cont to monitor Influenza A ( NEG covid ) - tamiflu not started with presumed dlu > 7 days ago AECOPD due to above - cont nebs , steroids SM 60 q 6 HTN - add prn tx Hyperkalemia - hemolysed - folow Hyponatremia - mild - follow Hypercalcemia - ? ethiology , to follow Lines : , (Central Line Necessity Reviewed) Taylor: OG: Nutrition: Analgesia: Anxiety/ delirium VTE Prophylaxis: diana 40 Stress Ulcer Prophylaxis: Plans in collaboration with bedside consultants and IM MDs. Discussed with RN to reach out if any questions or concerns A total of 31 minutes of critical care time was devoted to this patient today, required to treat and/or prevent further deterioration of critical care condition ( as above ) . I am remotely monitoring this patient from another state. I am unable to do the bedside exam, and history/physical and pertinent information is taken from other notes in the computer and bedside staff. . Allergies and Home Medications Allergies Coded Allergies: Sulfa (Sulfonamide Antibiotics) (Verified Allergy, Unknown, 02/05/15) amlodipine (Verified Allergy, Unknown, 02/05/15) Home Medications Albuterol Sulfate 8.5 Gm Hfa.aer.ad, 2 PUFF IH Q4H PRN for SHORTNESS OF BREATH, (Reported) Aspirin 81 Mg Tablet.dr, 81 MG PO DAILY, (Reported) Budesonide/Formoterol Fumarate 10.2 Gm Hfa.aer.ad, 1 PUFF IH DAILY, (Reported) Diazepam 10 Mg Tablet, 10 MG PO BID PRN for ANXIETY Prescribed by: LORENA OSULLIVAN on 05/06/15904 Fluticasone Propionate 16 Gm [place].susp, 2 SPRAY NS DAILY, (Reported) Furosemide 20 Mg Tablet, 20 MG PO DAILY Prescribed by: LORENA OSULLIVAN on 05/06/15904 Hydrocodone/Acetaminophen 1 Each Tablet, 1 TAB PO Q4H PRN for PAIN-MODERATE (5- 7) Prescribed by: ARTEMIO ARMAS on 08/29/20 1336 Ipratropium/Albuterol Sulfate 3 Ml Ampul.neb, 3 ML IH Q6H PRN for SHORTNESS OF BREATH, (Reported) Lisinopril 20 Mg Tablet, 20 MG PO BID, (Reported) LAST FILLED #90 12-11-14 Metoprolol Tartrate 25 Mg Tablet, 25 MG PO BID, (Reported) Minoxidil 2.5 Mg Tablet, 2.5 MG PO BID, (Reported) LAST FILLED #360 08-21-14 Montelukast Sodium 10 Mg Tablet, 10 MG PO DAILY, (Reported) LAST FILLED #90 12-11-14 Nicotine 1 Each Patch.td24, 21 MG TD DAILY Prescribed by: LORENA OSULLIVAN on 05/06/15904 Omeprazole Magnesium 20 Mg Tablet.dr, 20 MG PO DAILY, (Reported) Paroxetine HCl 20 Mg Tablet, 20 MG PO DAILY, (Reported) LAST FILLED #90 05-28-14 Potassium Chloride 10 Meq Capsule.er, 10 MEQ PO DAILY Prescribed by: LORENA OSULLIVAN on 05/06/15904 Prednisone 10 Mg Tab, 10 MG PO DAILY Take 6 tabs(60mg)daily, decrease by 1 tab(10mg) every other day. Prescribed by: LORENA OSULLIVAN on 05/06/15904 Simvastatin 40 Mg Tablet, 40 MG PO HS, (Reported) LAST FILLED #30 03-13-15 Spironolactone 25 Mg Tablet, 12.5 MG PO DAILY, (Reported) TAKES 1/2 (25MG) TABLET Tiotropium [place] 1 Inh Aerp, 1 INH IH DAILY, (Reported) Past Medical/Social/Family Hx Patient Social History Tobacco Use?: Yes Tobacco type used: Cigars, Cigarettes Smoking Status: Current Everyday Smoker Substance use?: No Alcohol Use?: No Immunizations Up To Date Influenza Vaccine Up-to-Date: No; Not Current Date of Pneumonia Vaccine: Jan 29, 2014 Current Status Primary Language: Luxembourgish Review of Systems Constitutional: see HPI Focused Exam Lactate Level 02/12/22 12:25: Lactic Acid Level 0.88 Height, Weight, BMI Height: 4'11.00" Weight: 151lbs. 14.8oz. 68.752764yq; 20.56 BMI Method:Stated Exam Exam Patient acknowledged, consented, and participated in this virtual visit which was conducted using real time audio/video Vital Signs Date Time Temp Pulse Resp B/P (MAP) Pulse Ox O2 Delivery O2 Flow Rate FiO2 02/12/22 17:35 NIV Bilevel 30.00 02/12/22 17:30 85 19 214/116 (148) 99 NIV Bilevel 30.00 02/12/22 17:00 79 16 186/79 (114) 94 NIV Bilevel 30.00 02/12/22 16:00 73 26 145/69 (94) 93 NIV Bilevel 30.00 02/12/22 16:00 98 02/12/22 16:00 36.6 02/12/22 15:30 66 15 139/115 (123) 93 NIV Bilevel 30.00 02/12/22 14:36 77 02/12/22 14:30 76 45 168/65 (99) 93 NIV Bilevel 30.00 02/12/22 14:22 80 23 98 30.00 02/12/22 13:43 74 19 98 30.00 Height & Weight Height: 4'11.00" Weight: 151lbs. 14.8oz. 68.754746hd; 20.56 BMI Method:Stated General Appearance: No Apparent Distress, Moderate Distress (moderate respiratory distress) HEENT: PERRL/EOMI, Other (unable to visualize pharnyx) Respiratory: No Accessory Muscle Use, Crackles (bilateral), Decreased Breath Sounds, Wheezing (expiratory wheezing bilaterally, more prominent on L) Cardiovascular: Regular Rate, Rhythm, No Edema Gastrointestinal: non tender, soft Extremity: No Pedal Edema Neurologic/Psychiatric: Alert, No Motor/Sensory Deficits Skin: Normal Color, Warm/Dry Results Lab Laboratory Tests 02/12/22 12:25 02/12/22 14:09 Assessment/Plan Assessment/Plan 1 TASIA PADILLA MD Feb 12, 2022 17:59
[2022-02-12] MEDS ORDERED: lisINopril 20 MG (PRINIVIL) TABLET PO NR (18:45)
[2022-02-12] MEDS: methylPREDNISolone 125 MG (Solu-MEDROL) VIAL IV SCH (19:45)
[2022-02-12] MEDS ORDERED: NICOTINE 21 MG (NICODERM) PATCH TD ONE (21:00)
[2022-02-12] MEDS ORDERED: NICOTINE 21 MG (NICODERM) PATCH ONE (21:00)
[2022-02-12] MEDS: RT-ALBUTEROL/IPRATROPIUM 3 ML (DUONEB) VIAL IH SCH (22:53)
[2022-02-13] MEDS: methylPREDNISolone 125 MG (Solu-MEDROL) VIAL IV SCH ×2 (02:07→08:00)
[2022-02-13] MEDS: RT-ALBUTEROL/IPRATROPIUM 3 ML (DUONEB) VIAL IH SCH ×6 (03:03→22:14)
[2022-02-13] MEDS: hydrALAZINE (APESOLINE) 20 MG/ML VIAL IV PRN ×2 (03:14→16:33)
[2022-02-13 04:45] LABS: HEMATOCRIT 41 % (35-52); MEAN CORPUSCULAR HEMOGLOBIN 29 pg (25-34); MEAN CORPUSCULAR HGB CONC 32 g/dL (32-36); MEAN CORPUSCULAR VOLUME 93 fL (80-99); MEAN PLATELET VOLUME 11.3 fL (9.0-12.2); PLATELET COUNT 212 10^3/uL (130-400); WHITE BLOOD COUNT 8.4 10^3/uL (4.3-11.0)
[2022-02-13 05:14] LABS: POTASSIUM 4.3 MMOL/L (3.6-5.0)
[2022-02-13 05:16] LABS: CALCIUM 10.9 MG/DL (8.5-10.1)
[2022-02-13 05:20] LABS: CREATININE SERUM 0.72 MG/DL (0.60-1.30); PHOSPHORUS 2.7 MG/DL (2.3-4.7)
[2022-02-13 05:23] LABS: MAGNESIUM 1.2 MG/DL (1.6-2.4)
[2022-02-13] MEDS: MAGNESIUM 1 GM/100 ML IVPB 100 ML IV SCH ×2 (05:52→06:49)
[2022-02-13] MEDS: POTASSIUM CL 10MEQ/50ML IVPB 50 ML IV SCH (06:19)
[2022-02-13] MEDS: KCL 20 MEQ TAB (K-DUR) PO SCH (06:21)
[2022-02-13] MEDS: toPIRamate 25 MG (TOPAMAX) TAB PO SCH (08:19)
[2022-02-13] MEDS: lisINopril 20 MG (PRINIVIL) TABLET PO SCH (08:19)
--- NOTE | 2022-02-13 09:21 | Progress Note ---
BRIANA LOZADA 02/13/22 0921: Subjective Date Seen by a Provider: Feb 13, 2022 Subjective/Events-last exam Ms. Mobley is a 76 year old female with PMHx of CAD, CABG in 2011, COPD, and HTN who has been admitted to the Hospitalist service for management of acute hypoxic respiratory failure secondary to COPD exacerbation with respiratory acidosis. Patient has also tested positive for influenza A. Patient was admitted to the ICU on 02/12 with BiPap therapy. Patient tolerated BiPap therapy well and was able to transition to supplemental oxygen via nasal cannula in the evening on 02/12. Patient is resting in bed this morning. Patient reports she feels mildly improved from yesterday. Patient denies CP or SOA at rest. Patient denies pain. Patient is currently using 4L supplemental O2 via NC. SpO2 was 91-92% throughout encounter. Patient reports Duoneb treatments are improving her symptoms. Patient is alert and oriented at time of encounter; there is no symptomatic evidence of hypercarbia at this time. Review of Systems General: No Chills HEENT: No Head Aches Pulmonary: No Dyspnea Cardiovascular: No: Chest Pain Gastrointestinal: No: Nausea, Vomiting, Abdominal Pain Genitourinary: No Retention Neurological: No: Weakness Focused Exam Lactate Level 02/12/22 12:25: Lactic Acid Level 0.88 Objective Exam Last Set of Vital Signs Vital Signs Date Time Temp Pulse Resp B/P (MAP) Pulse Ox O2 Delivery O2 Flow Rate FiO2 02/13/22 08:00 89 24 92 Nasal Cannula 4.00 02/13/22 07:30 37.2 02/13/22 07:00 190/87 (121) Capillary Refill : I&O Intake and Output 02/13/22 00:00 Intake Total 300 ml Output Total 400 ml Balance -100 ml Intake Oral 300 ml Output Urine Total 400 ml Daily Weight Change No General: Alert HEENT: Atraumatic Lungs: Other (bilateral expiratory wheezing, decreased air movement in bilateral lung felton) Heart: Regular Rate, No Murmurs Abdomen: Normal Bowel Sounds, Soft Extremities: No Edema, Normal Pulses (L radial pulse +2) Neuro: Normal Speech Psych/Mental Status: Mental Status NL, Mood NL Results Lab Laboratory Tests 02/12/22 12:25: White Blood Count 11.4H, Red Blood Count 4.73, Hemoglobin 14.0, Hematocrit 45, Mean Corpuscular Volume 94, Mean Corpuscular Hemoglobin 30, Mean Corpuscular Hemoglobin Concent 32, Red Cell Distribution Width 12.9, Platelet Count 178, Mean Platelet Volume 12.5H, Immature Granulocyte % (Auto) 1, Neutrophils (%) (Auto) 88H, Lymphocytes (%) (Auto) 5L, Monocytes (%) (Auto) 7, Eosinophils (%) (Auto) 0, Basophils (%) (Auto) 0, Neutrophils # (Auto) 10.0H, Lymphocytes # (Auto) 0.6L, Monocytes # (Auto) 0.7, Eosinophils # (Auto) 0.0, Basophils # (Auto) 0.0, Immature Granulocyte # (Auto) 0.1, Neutrophils % (Manual) 90, Lymphocytes % (Manual) 2, Monocytes % (Manual) 3, Eosinophils % (Manual) 0, Basophils % (Manual) 0, Band Neutrophils 5, Blood Morphology Comment NORMAL, Prothrombin Time 12.3, INR Comment 0.9, Activated Partial Thromboplast Time 24, Sodium Level 127L, Potassium Level 6.8*H, Chloride Level 93L, Carbon Dioxide Level 23, Anion Gap 11, Blood Urea Nitrogen 9, Creatinine 0.65, Estimat Glomerular Filtration Rate 92, BUN/Creatinine Ratio 14, Glucose Level 115H, Lactic Acid Level 0.88, Calcium Level 10.2H, Corrected Calcium 10.3H, Magnesium Level 1.2L, Total Bilirubin 0.2, Aspartate Amino Transf (AST/SGOT) 46H, Alanine Aminotransferase (ALT/SGPT) 18, Alkaline Phosphatase 91, Myoglobin 125.4H, Troponin I < 0.028, B-Type Natriuretic Peptide 202.5H, Total Protein 8.5H, Albumin 3.9, Procalcitonin 0.08, Serum Alcohol < 10 02/12/22 13:02: Blood Gas Puncture Site LT BRACHIAL, Blood Gas Patient Temperature 98.8, Arterial Blood pH 7.24*L, Arterial Blood Partial Pressure CO2 74*H, Arterial Blood Partial Pressure O2 108H, Arterial Blood HCO3 31H, Arterial Blood Total CO2 33.0H, Arterial Blood Oxygen Saturation 94, Arterial Blood Base Excess 3.9H, Mundo Test NA, Blood Gas Ventilator Setting NO, Blood Gas Inspired Oxygen 4L 02/12/22 13:32: Influenza Type A (RT-PCR) DetectedH, Influenza Type B (RT-PCR) Not Detected, SARS-CoV-2 RNA (RT-PCR) Not Detected 02/12/22 14:09: Sodium Level 129L, Potassium Level 4.9, Chloride Level 92L, Carbon Dioxide Level 24, Anion Gap 13, Blood Urea Nitrogen 9, Creatinine 0.63, Estimat Glomerular Filtration Rate 92, BUN/Creatinine Ratio 14, Glucose Level 104, Calcium Level 10.6H 02/13/22 04:23: White Blood Count 8.4, Red Blood Count 4.42, Hemoglobin 13.0, Hematocrit 41, Mean Corpuscular Volume 93, Mean Corpuscular Hemoglobin 29, Mean Corpuscular Hemoglobin Concent 32, Red Cell Distribution Width 12.7, Platelet Count 212, Mean Platelet Volume 11.3, Sodium Level 131L, Potassium Level 4.3, Chloride Level 93L, Carbon Dioxide Level 24, Anion Gap 14, Blood Urea Nitrogen 18, Creatinine 0.72, Estimat Glomerular Filtration Rate 87, BUN/Creatinine Ratio 25, Glucose Level 147H, Calcium Level 10.9H, Phosphorus Level 2.7, Magnesium Level 1.2L, Triglycerides Level 127, Cholesterol Level 262H, LDL Cholesterol Direct 208H, VLDL Cholesterol 25, HDL Cholesterol 33L Assessment/Plan Assessment/Plan Assess & Plan/Chief Complaint 1. Acute hypoxic respiratory failure secondary to COPD exacerbation with respiratory acidosis -BiPap therapy for respiratory support and admission to ICU for management -> transitioned to 4L nasal cannula. Move to med-surg floor on 02/13 -Nebulized Duoneb breathing treatments with -Systemic glucocorticoids - methylprednisolone 125mg once IVP -> Prednisone 40mg PO daily -AM CBC ----Z-u-p-z-e-p-a-m- -5-m-g- -o-n-c-e- -f-o-r- -d-d-m-i-e-t-y- -x-c-x-a-t-e-d- -t-o- -B-i-P-a-p- 2. Influenza A -Patient has had symptoms for at least one week thus does not meet requirement for Tamiflu therapy -Continue respiratory support -Pain management with tylenol 325mg PO PRN Q4-6H 3. HTN -Hydralazine 10mg IVP Q4H if SBP >160 -Carvedilol 6.25mg PO BID -Lisinopril 20mg PO daily -Monitor BP 4. Hypomagnesemia with Mg of 1.2 -> no improvement on 02/13. Continue to replace -Replace with magnesium 100ml IV daily -Repeat Mg with AM lab studies 5. Hyperlipidemia -Total cholesterol 262, LDL 208, HDL 33 -Begin high dose statin therapy - rosuvastatin 20mg PO daily Clinical Quality Measures Admission Status Admission Dx 1. Acute hypoxic respiratory failure secondary to COPD exacerbation with respiratory acidosis -BiPap therapy for respiratory support and admission to ICU for management -Nebulized breathing treatments with albuterol-ipratropium 2.5mg-0.5mg Q1H for 2-3 doses -> Q2H for 2 additional doses as needed -Systemic glucocorticoids - methylprednisolone 125mg once IVP -Empiric antibiotic therapy with azithromycin 500mg PO daily for 3 days -Repeat BMP -AM CBC -Diazepam 5mg once for anxiety related to BiPap 2. Influenza A -Patient has had symptoms for at least one week thus does not meet requirement for Tamiflu therapy -Continue respiratory support -Pain management with tylenol 325mg PO PRN Q4-6H 3. HTN with BP of 216/84 in ED -Resume home medication metoprolol 25mg PO BID -Monitor BP 4. Hypomagnesemia with Mg of 1.2 -Replace with magnesium 100ml IV daily -Repeat Mg with AM lab studies BETHANY TUTTLE MD 02/13/22 1200: Assessment/Plan Assessment/Plan Assess & Plan/Chief Complaint Patient reports feeling much better today. Her breathing has improved and she is off BiPAP. We will plan to transfer her down to the fourth floor. She has had quite elevated blood pressures overnight but her home medications have been restarted and they are starting to improve. She does have hydralazine available as needed. Supervisory-Addendum Brief Verification & Attestation Participated in pt care: history, MDM, physical Personally performed: exam, history, MDM, supervision of care Care discussed with: Medical Student Procedures: n/a Results interpretation: Verified all documentation Verification and Attestation of Medical Student E/M Service A medical student performed and documented this service in my presence. I reviewed and verified all information documented by the medical student and made modifications to such information, when appropriate. I personally performed the physical exam and medical decision making. Bethany Tuttle, Feb 13, 2022,12:00 BRIANA LOZADA Feb 13, 2022 09:21 BETHANY TUTTLE MD Feb 13, 2022 12:00
--- NOTE | 2022-02-13 15:01 | Tele-ICU Progress Note ---
Subjective Date Seen by a Provider: Feb 13, 2022 Time Seen by a Provider: 08:37 Subjective/Events-last exam (Tele-ICU Physician , Progress Note ) Service provided via interactive audio and video telecommunications E-CARE system to a patient admitted to ICU bed in [facility]. 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 ON $ L TODAY Influenza A ( NEG covid ) - tamiflu not started with presumed dlu > 7 days ago AECOPD due to above - cont nebs , steroids SM 60 q 6 -- ON PO TODAY HTN - add prn tx Hyperkalemia - hemolysed - folow Hyponatremia - mild - follow Hypercalcemia - ? ethiology , to follow Lines : , (Central Line Necessity Reviewed) Taylor: VOID OG: Nutrition: po Analgesia: Anxiety/ delirium VTE Prophylaxis: diana 40 Stress Ulcer Prophylaxis: NA Plans in collaboration with bedside consultants and IM MDs. Discussed with RN to reach out if any questions or concerns A total of 15 minutes of critical care time was devoted to this patient today, required to treat and/or prevent further deterioration of critical care condition ( as above ) . I am remotely monitoring this patient from another state. I am unable to do the bedside exam, and history/physical and pertinent information is taken from other notes in the computer and bedside staff. . Sepsis Event Evaluation Height, Weight, BMI Height: 4'11.00" Weight: 151lbs. 14.8oz. [id number]; 20.56 BMI Method:Stated Focused Exam Lactate Level 02/12/22 12:25: Lactic Acid Level 0.88 Exam Exam Patient acknowledged, consented, and participated in this virtual visit which was conducted using real time audio/video Vital Signs Date Time Temp Pulse Resp B/P (MAP) Pulse Ox O2 Delivery O2 Flow Rate FiO2 02/13/22 13:00 85 02/13/22 12:00 85 26 176/79 (111) 95 Nasal Cannula 4.00 02/13/22 12:00 Nasal Cannula 4.00 02/13/22 11:37 96 Nasal Cannula 2.00 02/13/22 11:00 93 28 91 Nasal Cannula 4.00 02/13/22 10:00 82 23 133/66 (88) 91 Nasal Cannula 4.00 02/13/22 09:00 86 22 136/95 (109) 94 Nasal Cannula 4.00 02/13/22 08:00 89 24 92 Nasal Cannula 4.00 02/13/22 08:00 Nasal Cannula 4.00 02/13/22 07:33 97 Nasal Cannula 2.00 02/13/22 07:30 37.2 02/13/22 07:00 93 24 190/87 (121) 91 Nasal Cannula 4.00 02/13/22 07:00 90 02/13/22 06:00 94 22 196/86 (122) 96 Nasal Cannula 4.00 02/13/22 05:00 77 20 144/61 (88) 95 02/13/22 04:30 85 16 156/66 (96) 95 02/13/22 04:00 Nasal Cannula 4.00 02/13/22 04:00 98 24 195/87 (123) 94 Nasal Cannula 4.00 02/13/22 03:30 96 14 203/84 (123) 94 02/13/22 03:03 97 Nasal Cannula 2.00 02/13/22 03:00 36.7 98 22 203/84 (123) 93 Nasal Cannula 4.00 02/13/22 02:00 75 16 183/88 (119) 98 Nasal Cannula 4.00 02/13/22 01:04 74 02/13/22 01:00 74 16 166/77 (106) 98 Nasal Cannula 4.00 02/13/22 01:00 80 02/13/22 00:43 36.6 02/13/22 00:00 76 16 185/79 (114) 97 Nasal Cannula 4.00 02/12/22 23:29 Nasal Cannula 4.00 02/12/22 23:00 77 24 187/84 (118) 93 02/12/22 22:53 73 25 98 30.00 02/12/22 22:00 87 20 188/86 (120) 93 Nasal Cannula 4.00 02/12/22 21:00 86 18 197/89 (125) 97 Nasal Cannula 4.00 02/12/22 20:00 95 22 188/86 (120) 96 Nasal Cannula 4.00 02/12/22 20:00 36.4 02/12/22 19:00 103 02/12/22 19:00 102 20 169/81 (110) 94 Nasal Cannula 4.00 02/12/22 18:41 36.1 02/12/22 18:00 82 225/100 (141) 97 NIV Bilevel 30.00 02/12/22 17:35 NIV Bilevel 30.00 02/12/22 17:30 85 19 214/116 (148) 99 NIV Bilevel 30.00 02/12/22 17:00 79 16 186/79 (114) 94 NIV Bilevel 30.00 02/12/22 16:00 73 26 145/69 (94) 93 NIV Bilevel 30.00 02/12/22 16:00 98 02/12/22 16:00 36.6 02/12/22 15:30 66 15 139/115 (123) 93 NIV Bilevel 30.00 I & O 02/13/22 07:00 Intake Total 600 ml Output Total 400 ml Balance 200 ml Height & Weight Height: 4'11.00" Weight: 151lbs. 14.8oz. [id number]; 20.56 BMI Method:Stated General Appearance: No Apparent Distress, Moderate Distress (moderate respiratory distress) HEENT: PERRL/EOMI, Other (unable to visualize pharnyx) Respiratory: No Accessory Muscle Use, Crackles (bilateral), Decreased Breath Sounds, Wheezing (expiratory wheezing bilaterally, more prominent on L) Cardiovascular: Regular Rate, Rhythm, No Edema Gastrointestinal: non tender, soft Extremity: No Pedal Edema Neurologic/Psychiatric: Alert, No Motor/Sensory Deficits Skin: Normal Color, Warm/Dry Results Lab Laboratory Tests 02/12/22 12:25 02/12/22 14:09 02/13/22 04:23 Assessment/Plan Assessment/Plan 1 TASIA PADILLA MD Feb 13, 2022 15:01
[2022-02-13 15:04] VITALS: BP 176/79
[2022-02-13 15:30] VITALS: BP 182/78
[2022-02-13] MEDS: ENOXAPARIN 40 MG/0.4 ML (LOVENOX) SYR SC SCH (16:33)
[2022-02-13] MEDS ORDERED: MELO15TA39 PO (16:57)
[2022-02-13] MEDS ORDERED: CARV6.252 PO (16:57)
[2022-02-13] MEDS ORDERED: CHOL-34 PO (16:57)
[2022-02-13] MEDS ORDERED: DIAZ5TAB49 PO (16:57)
[2022-02-13] MEDS ORDERED: LISI40TA9 PO (16:57)
[2022-02-13] MEDS ORDERED: ASPI-1238 PO (16:58)
[2022-02-13 19:22] VITALS: BP 162/68
[2022-02-13] MEDS: MELATONIN 3 MG TABLET PO PRN (20:00)
[2022-02-14] VITALS (7 sets, daily range): BP systolic 138–185; BP diastolic 65–91
[2022-02-14] MEDS: RT-ALBUTEROL/IPRATROPIUM 3 ML (DUONEB) VIAL IH SCH ×5 (02:50→23:10)
[2022-02-14] MEDS: hydrALAZINE (APESOLINE) 20 MG/ML VIAL IV PRN ×4 (03:18→21:39)
[2022-02-14 05:05] LABS: HEMATOCRIT 44 % (35-52); MEAN CORPUSCULAR HEMOGLOBIN 30 pg (25-34); MEAN CORPUSCULAR HGB CONC 32 g/dL (32-36); MEAN CORPUSCULAR VOLUME 92 fL (80-99); PLATELET COUNT 249 10^3/uL (130-400); WHITE BLOOD COUNT 13.2 10^3/uL (4.3-11.0)
[2022-02-14 05:18] LABS: POTASSIUM 4.3 MMOL/L (3.6-5.0)
[2022-02-14 05:20] LABS: CALCIUM 11.3 MG/DL (8.5-10.1)
[2022-02-14] MEDS: KCL 20 MEQ TAB (K-DUR) PO SCH (05:20)
[2022-02-14] MEDS: POTASSIUM CL 10MEQ/50ML IVPB 50 ML IV SCH (05:20)
[2022-02-14 05:24] LABS: CREATININE SERUM 0.67 MG/DL (0.60-1.30)
[2022-02-14 05:26] LABS: MAGNESIUM 1.7 MG/DL (1.6-2.4)
[2022-02-14] MEDS: MAGNESIUM 1 GM/100 ML IVPB 100 ML IV SCH ×2 (05:44→06:28)
[2022-02-14] MEDS: predniSONE 20 MG TAB PO SCH (07:48)
[2022-02-14] MEDS: toPIRamate 25 MG (TOPAMAX) TAB PO SCH (09:14)
[2022-02-14] MEDS: lisINopril 20 MG (PRINIVIL) TABLET PO SCH ×2 (09:15→20:27)
--- NOTE | 2022-02-14 10:03 | Progress Note ---
BRIANA LOZADA 02/14/22 10:03am: Subjective Date Seen by a Provider: Feb 14, 2022 Time Seen by a Provider: 08:40 Subjective/Events-last exam Ms. Mobley is a 76 year old female with PMHx of CAD, CABG in 2011, COPD, and HTN who has been admitted to the Hospitalist service for management of acute hypoxic respiratory failure secondary to COPD exacerbation with respiratory acidosis. Patient has also tested positive for influenza A. Patient was admitted to the ICU on 02/12 with BiPap therapy. Patient tolerated BiPap therapy well and was able to transition to supplemental oxygen via nasal cannula in the evening on 02/12. Patient transitioned to Med-Surg floor on 02/13. Patient is sitting on the side of her bed this morning watching TV. Patient reports she feels as though she is continuing to improve. Patient denies CP or SOA at rest. Patient denies pain. Patient is currently using 3L supplemental O2 via NC. Patient reports Duoneb treatments continue to improve her symptoms. Patient is alert and oriented at time of encounter; there is no symptomatic shara dence of hypercarbia at this time. Patient denies having an appetite. Patient is inquiring when she will be able to discharge home. Review of Systems General: No Chills, No Appetite HEENT: No Head Aches Pulmonary: No Dyspnea Cardiovascular: No: Chest Pain, Edema Gastrointestinal: No: Nausea, Vomiting, Abdominal Pain, Diarrhea Genitourinary: No Retention Focused Exam Lactate Level 02/12/22 12:25: Lactic Acid Level 0.88 Objective Exam Last Set of Vital Signs Vital Signs Date Time Temp Pulse Resp B/P (MAP) Pulse Ox O2 Delivery O2 Flow Rate FiO2 02/14/22 08:19 35.9 74 17 141/91 (108) 91 Nasal Cannula 4.00 Capillary Refill : I&O Intake and Output 02/14/22 00:00 Intake Total 1020 ml Output Total 520 ml Balance 500 ml Intake Oral 920 ml IV Total 100 ml Output Urine Total 520 ml # Voids 5 General: Alert, No Acute Distress Lungs: Other (bilateral expiratory wheezing, improved from 02/13. Decreased breath sounds bilaterally) Heart: Regular Rate, No Murmurs Abdomen: Normal Bowel Sounds, Soft, No Tenderness Extremities: No Edema Neuro: Normal Speech Psych/Mental Status: Mental Status NL, Mood NL Results Lab Laboratory Tests 02/14/22 05:00: White Blood Count 13.2H, Red Blood Count 4.73, Hemoglobin 14.0, Hematocrit 44, Mean Corpuscular Volume 92, Mean Corpuscular Hemoglobin 30, Mean Corpuscular Hemoglobin Concent 32, Red Cell Distribution Width 12.6, Platelet Count 249, Mean Platelet Volume 11.0, Sodium Level 133L, Potassium Level 4.3, Chloride Level 92L, Carbon Dioxide Level 28, Anion Gap 13, Blood Urea Nitrogen 20H, Creatinine 0.67, Estimat Glomerular Filtration Rate 91, BUN/Creatinine Ratio 30, Glucose Level 126H, Calcium Level 11.3H, Magnesium Level 1.7 Microbiology 02/12/22 Blood Culture - Preliminary, Resulted No growth Assessment/Plan Assessment/Plan Assess & Plan/Chief Complaint 1. Acute hypoxic respiratory failure secondary to COPD exacerbation with respiratory acidosis -BiPap therapy for respiratory support and admission to ICU for management -> transitioned to 3L nasal cannula. Successfully transitioned to to med-surg floor on 02/13 -Nebulized Duoneb breathing treatments -Systemic glucocorticoids - methylprednisolone 125mg once IVP -> Prednisone 40mg PO daily -AM CBC ----L-h-o-z-e-p-a-m- -5-m-g- -o-n-c-e- -f-o-r- -v-o-r-i-e-t-y- -e-o-r-a-t-e-d- -t-o- -B-i-P-a-p- -Home O2 study prior to discharge -Anticipate discharge on 02/15 or 02/16 with home health services 2. Influenza A -Patient has had symptoms for at least one week thus does not meet requirement for Tamiflu therapy -Continue respiratory support -Pain management with tylenol 325mg PO PRN Q4-6H 3. HTN -Hydralazine 10mg IVP Q4H if SBP >160 -Carvedilol 6.25mg PO BID -Lisinopril 20mg PO daily -Monitor BP -Continued HTN with medical management is likely secondary to concurrent steroid and Duoneb therapy 4. Hypomagnesemia -> resolved with Mg of 1.7 s/p replacement 5. Hyperlipidemia -Total cholesterol 262, LDL 208, HDL 33 -Begin high dose statin therapy - rosuvastatin 20mg PO daily 6. Leukocytosis; WBC 13.2 -Likely secondary to systemic steroid therapy. -Monitor with AM CBC; monitor clinical disposition Clinical Quality Measures Admission Status Admission Dx 1. Acute hypoxic respiratory failure secondary to COPD exacerbation with respiratory acidosis -BiPap therapy for respiratory support and admission to ICU for management -Nebulized breathing treatments with albuterol-ipratropium 2.5mg-0.5mg Q1H for 2-3 doses -> Q2H for 2 additional doses as needed -Systemic glucocorticoids - methylprednisolone 125mg once IVP -Empiric antibiotic therapy with azithromycin 500mg PO daily for 3 days -Repeat BMP -AM CBC -Diazepam 5mg once for anxiety related to BiPap 2. Influenza A -Patient has had symptoms for at least one week thus does not meet requirement for Tamiflu therapy -Continue respiratory support -Pain management with tylenol 325mg PO PRN Q4-6H 3. HTN with BP of 216/84 in ED -Resume home medication metoprolol 25mg PO BID -Monitor BP 4. Hypomagnesemia with Mg of 1.2 -Replace with magnesium 100ml IV daily -Repeat Mg with AM lab studies MALIKA TUTTLE MD 02/14/22 12:25pm: Assessment/Plan Assessment/Plan Assess & Plan/Chief Complaint Patient reports feeling better. She is asking about discharge plan. Family at bedside is worried about safe discharge as he is unable jeffrey there 21/09. Discussed plan to continue ti work with PT and assess on Wednesday for home with home health if that is safe. Otherwise doing well and stable on 3-4lpm. Supervisory-Addendum Brief Verification & Attestation Participated in pt care: history, MDM, physical Personally performed: exam, history, MDM, supervision of care Care discussed with: Medical Student Procedures: n/a Results interpretation: Verified all documentation Verification and Attestation of Medical Student E/M Service A medical student performed and documented this service in my presence. I reviewed and verified all information documented by the medical student and made modifications to such information, when appropriate. I personally performed the physical exam and medical decision making. Malika Tuttle, Feb 14, 2022,12:21 BRIANA LOZADA Feb 14, 2022 10:03 am MALIKA TUTTLE MD Feb 14, 2022 12:25 pm
--- NOTE | 2022-02-14 10:35 | Physical Therapy Evaluation ---
PT Evaluation-General Medical Diagnosis Admission Date Feb 12, 2022 at 13:26 Medical Diagnosis: Flu A Onset Date: Feb 13, 2022 Therapy Diagnosis Therapy Diagnosis: debility Height/Weight Height (Feet): 4 Height (Inches): 11.00 Weight (Pounds): 151 Weight (Ounces): 14.8 Precautions Precautions/Isolations: Droplet Isolation Weight Bear Status Full Weight Bearing Full Weight Bearing Referral Physician: Allen Reason for Referral: Evaluation/Treatment Medical History Pertinent Medical History: CABG, CAD, COPD, GERD, HTN, Smoking Social History Home: Single Level Current Living Status: Spouse Prior Prior Level of Function SCALE: Activities may be completed with or without assistive devices. 5-Ifxaravicx-pvtoeqo completes the activity by him/herself with no assistance from a helper. 5-Set-up or Clean-up Assistance-helper sets up or cleans up; patient completes activity. Holman assists only prior to or following the activity. 4-Supervision or Touching Assistance-helper provides verbal cues and/or touching/steadying and/or contact guard assistance as patient completes activity. Assistance may be provided throughout the activity or intermittently. 3-Partial/Moderate Assistance-helper does LESS THAN HALF the effort. Holman lifts, holds or supports trunk or limbs, but provides less than half the effort. 2-Substantial/Maximal Assistance-helper does MORE THAN HALF the effort. Holman lifts or holds trunk or limbs and provides more than half the effort. 7-Ygudcvzyp-hytxda does ALL the effort. Patient does none of the effort to complete the activity. Or, the assistance of 2 or more helpers is required for the patient to complete the activity. If activity was not attempted, code reason: 7-Patient Refused. 9-Not Applicable-not attempted and the patient did not perform the activity before the current illness, exacerbation or injury. 10-Not Attempted due to Environmental Limitations-(lack of equipment, weather restraints, etc.). 88-Not Attempted due to Medical Conditions or Safety Concerns. Bed Mobility: 6 Transfers (B,C,W/C): 6 Gait: 6 Stairs: 6 Indoor Mobility (Ambulation): Independent Stairs: Independent Prior Devices Use: None PT Evaluation-Current Subjective The patient presents with a positive diagnosis for Flu A. She reports debility. Pain Numeric Pain Scale: 0-No Pain ROM/Strength ROM Lower Extremities WFL Strength Lower Extremities 3+/5 strength grossly Neuromuscular (Tone, Coordination, Reflexes) intact Transfers Roll Left to Right (QC): 5 Sit to Lying (QC): 5 Lying to Sitting/Side of Bed(Q: 5 Sit to Stand (QC): 5 Chair/Gzo-xv-Dijsc Xfer(QC): 5 Gait Does the Patient Walk?: Yes Mode of Locomotion: Walk Anticipated Mode of Locomotion: Walk Walk 10 feet (QC): 5 Walk 50 ft with 2 Turns(QC): 5 Walk 150 ft (QC): 88 Walking 10ft/uneven surface-QC: 88 Distance: 50' Gait Assistive Device: FWW Balance Sitting Static: Normal Sitting Dynamic: Good Standing Static: Fair Standing Dynamic: Fair Assessment/Needs 76 y.o. female with a diagnosis of flu A with debility that is causing functional mobility limitations. Rehab Potential: Good PT Short Term Goals Short Term Goals Time Frame: Feb 18, 2022 PT Longterm Goals Longterm Goals PT Longterm Goals Time Frame: Feb 21, 2022 Roll Left & Right (QC): 6 Sit to Lying (QC): 6 Lying-Sitting on Side/Bed(QC): 6 Sit to Stand (QC): 6 Chair/Htu-bx-Xobgg Xfer(QC): 6 Toilet Transfer (QC): 6 Car Transfer (QC): 6 Does the Patient Walk: Yes Walk 10 feet (QC): 6 Walk 50ft with 2 Turns (QC): 6 Walk 150 ft (QC): 6 Walking 10ft on Uneven Surface: 6 1 Step (curb) (QC): 6 4 Steps (QC): 6 12 Steps (QC): 6 Picking up an Object (QC): 6 PT Plan Problem List Problem List: Activity Tolerance, Functional Strength, Safety, Balance, Gait, Transfer, Bed Mobility Treatment/Plan Treatment Plan: Continue Plan of Care Treatment Plan: Bed Mobility, Functional Activity Lou, Functional Strength, Gait, Safety, Therapeutic Exercise, Transfers Treatment Duration: Feb 21, 2022 Frequency: 11 times per week Estimated Hrs Per Day: .5 hour per day Patient and/or Family Agrees t: Yes Time Time In: 1015 Time Out: 1030 DATE: Feb 14, 2022 Total Billed Treatment Time: 15 Total Billed Treatment 1, EV Low complexity x 15' BELEN ADORNO PT Feb 14, 2022 10:35
[2022-02-14] MEDS: ENOXAPARIN 40 MG/0.4 ML (LOVENOX) SYR SC SCH (17:09)
[2022-02-15 00:01] VITALS: BP 146/64
[2022-02-15] MEDS: MELATONIN 3 MG TABLET PO PRN (00:48)
[2022-02-15] MEDS: RT-ALBUTEROL/IPRATROPIUM 3 ML (DUONEB) VIAL IH SCH ×6 (03:01→22:07)
[2022-02-15 04:02] VITALS: BP 180/75
[2022-02-15] MEDS: hydrALAZINE (APESOLINE) 20 MG/ML VIAL IV PRN ×2 (04:09→20:10)
[2022-02-15 04:44] LABS: HEMATOCRIT 45 % (35-52); MEAN CORPUSCULAR HEMOGLOBIN 30 pg (25-34); MEAN CORPUSCULAR HGB CONC 31 g/dL (32-36); MEAN CORPUSCULAR VOLUME 96 fL (80-99); PLATELET COUNT 247 10^3/uL (130-400); WHITE BLOOD COUNT 12.4 10^3/uL (4.3-11.0)
[2022-02-15 05:07] LABS: CREATININE SERUM 0.77 MG/DL (0.60-1.30); MAGNESIUM 1.9 MG/DL (1.6-2.4); POTASSIUM 3.9 MMOL/L (3.6-5.0)
[2022-02-15] MEDS: KCL 20 MEQ TAB (K-DUR) PO SCH (05:15)
[2022-02-15] MEDS: POTASSIUM CL 10MEQ/50ML IVPB 50 ML IV SCH (05:15)
[2022-02-15 05:50] VITALS: BP 126/55
[2022-02-15] MEDS: predniSONE 20 MG TAB PO SCH (05:52)
[2022-02-15 07:22] VITALS: BP 151/65
[2022-02-15] MEDS: NICOTINE PATCH REMOVAL TP SCH (07:36)
[2022-02-15] MEDS: NICOTINE 21 MG (NICODERM) PATCH TD SCH (09:08)
[2022-02-15] MEDS: toPIRamate 25 MG (TOPAMAX) TAB PO SCH (09:11)
[2022-02-15] MEDS: lisINopril 20 MG (PRINIVIL) TABLET PO SCH ×2 (09:11→20:13)
--- NOTE | 2022-02-15 10:22 | Progress Note ---
BRIANA LOZADA 02/15/22 1022: Subjective Date Seen by a Provider: Feb 15, 2022 Time Seen by a Provider: 10:00 Subjective/Events-last exam Ms. Mobley is a 76 year old female with PMHx of CAD, CABG in 2011, COPD, and HTN who has been admitted to the Hospitalist service for management of acute hypoxic respiratory failure secondary to COPD exacerbation with respiratory acidosis. Patient has also tested positive for influenza A. Patient was admitted to the ICU on 02/12 with BiPap therapy. Patient tolerated BiPap therapy well and was able to transition to supplemental oxygen via nasal cannula in the evening on 02/12. Patient transitioned to Med-Surg floor on 02/13. Patient is laying in bed this morning at time of encounter. Patient is very lethargic. Patient will open her eyes to stimulus. Nursing staff and RT were present collecting a urine sample and ABG. Patient has been moved to ICU for BiPap therapy. ABG results: 7.22/105/70. Focused Exam Lactate Level 02/12/22 12:25: Lactic Acid Level 0.88 Objective Exam Last Set of Vital Signs Vital Signs Date Time Temp Pulse Resp B/P (MAP) Pulse Ox O2 Delivery O2 Flow Rate FiO2 02/15/22 07:22 36.0 72 18 151/65 (93) 96 Nasal Cannula 3.00 Capillary Refill : I&O Intake and Output 02/15/22 00:00 Intake Total 1270 ml Output Total 500 ml Balance 770 ml Intake Oral 1270 ml Output Urine Total 500 ml # Voids 4 Lungs: Other (bilateral expiratory wheezing ) Heart: Regular Rate, No Murmurs Results Lab Laboratory Tests 02/15/22 04:33: White Blood Count 12.4H, Red Blood Count 4.71, Hemoglobin 14.0, Hematocrit 45, Mean Corpuscular Volume 96, Mean Corpuscular Hemoglobin 30, Mean Corpuscular Hemoglobin Concent 31L, Red Cell Distribution Width 12.8, Platelet Count 247, Mean Platelet Volume 11.0, Sodium Level 136, Potassium Level 3.9, Chloride Level 92L, Carbon Dioxide Level 34H, Anion Gap 10, Blood Urea Nitrogen 28H, Creatinine 0.77, Estimat Glomerular Filtration Rate 80, BUN/Creatinine Ratio 36, Glucose Level 126H, Calcium Level 11.0H, Magnesium Level 1.9 Microbiology 02/12/22 Blood Culture - Preliminary, Resulted No growth Assessment/Plan Assessment/Plan Assess & Plan/Chief Complaint 1. Acute hypoxic respiratory failure secondary to COPD exacerbation with respiratory acidosis -BiPap therapy for respiratory support and admission to ICU for management -> transitioned to 3L nasal cannula. Successfully transitioned to to med-surg floor on 02/13 -> decline in condition with AB.22/105/70 on 02/16. Patient placed on BiPap and moved to ICU for management. Continue to monitor condition and wean respiratory support as tolerated. -Nebulized Duoneb breathing treatments -Systemic glucocorticoids - methylprednisolone 125mg once IVP -> Prednisone 40mg PO daily -AM CBC ----J-c-h-z-e-p-a-m- -5-m-g- -o-n-c-e- -f-o-r- -p-k-k-i-e-t-y- -i-p-m-a-t-e-d- -t-o- -B-i-P-a-p- -Home O2 study prior to discharge -02/15: Patient is lethargic this morning; ABG to r/o hypercarbia. UA to determine if UTI is source of lethargy. 2. Influenza A -Patient has had symptoms for at least one week thus does not meet requirement for Tamiflu therapy -Continue respiratory support -Pain management with tylenol 325mg PO PRN Q4-6H 3. HTN -Hydralazine 10mg IVP Q4H if SBP >160 -Carvedilol 6.25mg PO BID -Lisinopril 20mg PO daily -Monitor BP -Continued HTN with medical management is likely secondary to concurrent steroid and Duoneb therapy 4. Hypomagnesemia -> resolved with Mg of 1.9 s/p replacement 5. Hyperlipidemia -Total cholesterol 262, LDL 208, HDL 33 -Begin high dose statin therapy - rosuvastatin 20mg PO daily 6. Leukocytosis; WBC 13.2 on 02/14, 12.4 on 02/15 -Likely secondary to systemic steroid therapy. -Monitor with AM CBC; monitor clinical disposition -UA to r/o UTI 7. UTI -Urine leukocyte esterase +2, large bacteria, 10-25 urine WBC, decline in clinical disposition -Initiate Rocephin therapy: 1gm -> 50ml @ 100mls/hr Q24H IV Clinical Quality Measures Admission Status Admission Dx 1. Acute hypoxic respiratory failure secondary to COPD exacerbation with respiratory acidosis -BiPap therapy for respiratory support and admission to ICU for management -Nebulized breathing treatments with albuterol-ipratropium 2.5mg-0.5mg Q1H for 2-3 doses -> Q2H for 2 additional doses as needed -Systemic glucocorticoids - methylprednisolone 125mg once IVP -Empiric antibiotic therapy with azithromycin 500mg PO daily for 3 days -Repeat BMP -AM CBC -Diazepam 5mg once for anxiety related to BiPap 2. Influenza A -Patient has had symptoms for at least one week thus does not meet requirement for Tamiflu therapy -Continue respiratory support -Pain management with tylenol 325mg PO PRN Q4-6H 3. HTN with BP of 216/84 in ED -Resume home medication metoprolol 25mg PO BID -Monitor BP 4. Hypomagnesemia with Mg of 1.2 -Replace with magnesium 100ml IV daily -Repeat Mg with AM lab studies BETHANY TUTTLE MD 02/15/22 1438: Assessment/Plan Assessment/Plan Assess & Plan/Chief Complaint Pt had worsening mentation today. Stat ABG ordered and revealed worsening CO2. BiPAP initiated and transferred to the ICU. Discussed with her who was at bedside. May need to consider NIPPV at home if persistent hypercapnea with sleep. Confirmed DNR status with . He also reports that her memory has been slipping for a while and he was concerned about her confusion. Will need social work assistance for possible placement upon discharge. Also checked UA due to mentation changes, add Rocephin and await cultures. Supervisory-Addendum Brief Verification & Attestation Participated in pt care: history, MDM, physical Personally performed: exam, history, MDM, supervision of care Care discussed with: Medical Student Procedures: n/a Results interpretation: Verified all documentation Verification and Attestation of Medical Student E/M Service A medical student performed and documented this service in my presence. I reviewed and verified all information documented by the medical student and made modifications to such information, when appropriate. I personally performed the physical exam and medical decision making. Bethany Tuttle, Feb 15, 2022,14:38 BRIANA LOZADA Feb 15, 2022 10:22 BETHANY TUTTLE MD Feb 15, 2022 14:38
[2022-02-15 10:23] LABS: ABG BASE EXCESS 14.1 MMOL/L (-2.5-2.5); ABG OXYGEN SATURATION 93 % (94-100); ABG PO2 70 MMHG (79-93)
[2022-02-15 10:25] LABS: ABG PCO2 105 MMHG (35-45); ABG PH 7.22 (7.37-7.43); ABG TCO2 45.6 MMOL/L (21.0-31.0); ALLENS TEST YES-POS; INSPIRED O2 30%; PATIENT TEMP 35.8; VENTILATOR NO
[2022-02-15 10:33] LABS: BILIRUBIN,URINE NEGATIVE (NEGATIVE); CLARITY,URINE CLOUDY; COLOR,URINE YELLOW; GLUCOSE, URINE (UA) NEGATIVE (NEGATIVE); KETONES,URINE NEGATIVE (NEGATIVE); LEUKOCYTE ESTERASE ,URINE 2+ (NEGATIVE); NITRITE,URINE NEGATIVE (NEGATIVE); PH,URINE 5.5 (5-9); PROTEIN,URINE TRACE (NEGATIVE)
[2022-02-15 10:51] LABS: RBC,URINE RARE /HPF
[2022-02-15 10:52] LABS: BACTERIA,URINE LARGE /HPF
[2022-02-15 11:38] VITALS: BP 157/67
[2022-02-15 12:00] VITALS: BP 140/66
--- NOTE | 2022-02-15 12:06 | Tele-ICU Progress Note ---
Subjective Date Seen by a Provider: Feb 15, 2022 Time Seen by a Provider: 12:05 Subjective/Events-last exam (Tele-ICU Physician , progress note) Available chart/ vitals / labs / Images reviewed H&P is from ER notes Patient's information available about PMH, allergy reviewed in EMR. ROS as per chart and RN report Video assessment done using teleICU camera, rest of exam as per RN Discussed with RN. She is not transferred from medical floor to the ICU because patient is found to be drowsy and a blood gas done today revealed a hypercarbic respiratory failure which was worsened since her admission. After transfer to the ICU I have evaluated the patient and she is on a BiPAP ventilation and I have changed her settings and will redraw her blood gas later. Currently she is a DNR status. Impression 1. Acute exacerbation of COPD 2. Acute on chronic hypercarbic respiratory failure. 3. Recent history of influenza infection. Recommendations 1. BiPAP ventilation and monitor her saturations 2. Continue steroids and a nebulizer treatments 3. DVT prophylaxis. Sepsis Event Evaluation Height, Weight, BMI Height: 4'11.00" Weight: 151lbs. 14.8oz. 68.880625on; 22.47 BMI Method:Stated Focused Exam Lactate Level 02/12/22 12:25: Lactic Acid Level 0.88 Exam Exam Patient acknowledged, consented, and participated in this virtual visit which was conducted using real time audio/video Vital Signs Date Time Temp Pulse Resp B/P (MAP) Pulse Ox O2 Delivery O2 Flow Rate FiO2 02/15/22 11:43 68 02/15/22 11:38 36.4 72 18 157/67 (97) 95 NIV Bilevel 100.00 02/15/22 10:29 100 19 94 30.00 02/15/22 10:22 94 Nasal Cannula 3.00 02/15/22 07:22 36.0 72 18 151/65 (93) 96 Nasal Cannula 3.00 02/15/22 07:05 93 Nasal Cannula 3.00 02/15/22 05:50 36.2 78 20 126/55 (78) 95 Nasal Cannula 3.00 02/15/22 04:02 36.1 77 18 180/75 (110) 97 Nasal Cannula 3.00 02/15/22 03:45 43 Room Air 02/15/22 03:01 96 Nasal Cannula 3.00 02/15/22 00:01 36.5 77 18 146/64 (91) 99 Nasal Cannula 3.00 02/14/22 22:08 83 138/65 (89) 02/14/22 21:32 82 184/74 (110) 02/14/22 20:32 Nasal Cannula 4.00 02/14/22 19:55 36.9 82 18 172/74 (106) 100 Nasal Cannula 3.00 02/14/22 19:25 95 Nasal Cannula 3.00 02/14/22 15:41 36.5 81 18 148/65 (92) 99 Nasal Cannula 3.00 02/14/22 14:46 Nasal Cannula 3.00 02/14/22 12:51 36.3 79 19 185/80 (115) 98 Nasal Cannula 4.00 I & O 02/15/22 07:00 Intake Total 620 ml Balance 620 ml Height & Weight Height: 4'11.00" Weight: 151lbs. 14.8oz. 68.469666pu; 22.47 BMI Method:Stated General Appearance: No Apparent Distress, Moderate Distress (moderate respiratory distress) HEENT: PERRL/EOMI, Other (unable to visualize pharnyx) Respiratory: No Accessory Muscle Use, Crackles (bilateral), Decreased Breath Sounds, Wheezing (expiratory wheezing bilaterally, more prominent on L) Cardiovascular: Regular Rate, Rhythm, No Edema Gastrointestinal: non tender, soft Extremity: No Pedal Edema Neurologic/Psychiatric: Alert, No Motor/Sensory Deficits Skin: Normal Color, Warm/Dry Results Lab Laboratory Tests 02/14/22 05:00 02/15/22 04:33 Assessment/Plan Assessment/Plan as above Critical Care: Critically Ill Patient Time spent with patient (mins): 25 AMELIA MERCADO MD Feb 15, 2022 12:06
[2022-02-15] MEDS: cefTRIAXone 1 GM PRE-MIX 50 ML IV SCH (12:52)
[2022-02-15] MEDS: ENOXAPARIN 40 MG/0.4 ML (LOVENOX) SYR SC SCH (17:18)
[2022-02-15 17:26] LABS: ABG BASE EXCESS 12.4 MMOL/L (-2.5-2.5); ABG OXYGEN SATURATION 80 % (94-100); ABG PO2 47 MMHG (79-93)
[2022-02-15 17:29] LABS: ABG PCO2 112 MMHG (35-45); ABG PH 7.18 (7.37-7.43)
[2022-02-15 17:30] LABS: ABG TCO2 44.6 MMOL/L (21.0-31.0); INSPIRED O2 100; VENTILATOR NO
[2022-02-15 18:23] LABS: ABG BASE EXCESS 12.7 MMOL/L (-2.5-2.5); ABG OXYGEN SATURATION 98 % (94-100); ABG PO2 141 MMHG (79-93)
[2022-02-15 18:25] LABS: ABG PCO2 106 MMHG (35-45); ABG TCO2 44.7 MMOL/L (21.0-31.0); ALLENS TEST YES-POS; INSPIRED O2 60%; VENTILATOR NO
--- NOTE | 2022-02-15 20:37 | Tele-ICU Progress Note ---
Progress Note BiPAP orders placed and repeat ABG ordered. d/w the bedside nurse. Pt with acute COPD exacerbation and CO2 narcosis withPCO2>100. Pt is arousable to name at this time. Interventions Minor-Other: COPD with CO2 retention, Ac on chronic hypercapnic resp failure Focused Exam Height, Weight, BMI Height: 4'11.00" Weight: 151lbs. 14.8oz. 68.620996ig; 22.47 BMI Method:Stated ISIAH LEAL MD Feb 15, 2022 20:37
[2022-02-15 20:57] LABS: ABG BASE EXCESS 11.7 MMOL/L (-2.5-2.5); ABG OXYGEN SATURATION 94 % (94-100); ABG PO2 73 MMHG (79-93)
[2022-02-15 21:02] LABS: ABG PCO2 90 MMHG (35-45); ABG PH 7.26 (7.37-7.43)
[2022-02-15 21:03] LABS: ALLENS TEST YES-POS; INSPIRED O2 40%
[2022-02-16] MEDS: RT-ALBUTEROL/IPRATROPIUM 3 ML (DUONEB) VIAL IH SCH ×6 (02:48→22:53)
[2022-02-16 04:35] LABS: ABG BASE EXCESS 13.3 MMOL/L (-2.5-2.5); ABG OXYGEN SATURATION 93 % (94-100); ABG PH 7.35 (7.37-7.43); ABG PO2 61 MMHG (79-93)
[2022-02-16 04:39] LABS: HEMATOCRIT 45 % (35-52); HEMOGLOBIN 13.7 g/dL (11.5-16.0); MEAN CORPUSCULAR HEMOGLOBIN 30 pg (25-34); MEAN CORPUSCULAR HGB CONC 31 g/dL (32-36); MEAN CORPUSCULAR VOLUME 97 fL (80-99); MEAN PLATELET VOLUME 11.6 fL (9.0-12.2); PLATELET COUNT 223 10^3/uL (130-400); WHITE BLOOD COUNT 15.4 10^3/uL (4.3-11.0)
[2022-02-16 04:39] LABS: ABG PCO2 73 MMHG (35-45)
[2022-02-16 04:40] LABS: ABG TCO2 41.9 MMOL/L (21.0-31.0); ALLENS TEST YES-POS; INSPIRED O2 30%; PATIENT TEMP 36.1; VENTILATOR NO
[2022-02-16 04:54] LABS: POTASSIUM 4.8 MMOL/L (3.6-5.0)
[2022-02-16 04:55] LABS: CALCIUM 11.9 MG/DL (8.5-10.1)
[2022-02-16 05:00] LABS: CREATININE SERUM 0.7 MG/DL (0.60-1.30)
[2022-02-16 05:02] LABS: MAGNESIUM 1.6 MG/DL (1.6-2.4)
[2022-02-16] MEDS: hydrALAZINE (APESOLINE) 20 MG/ML VIAL IV PRN ×3 (05:21→13:32)
[2022-02-16] MEDS: POTASSIUM CL 10MEQ/50ML IVPB 50 ML IV SCH (05:36)
[2022-02-16] MEDS: KCL 20 MEQ TAB (K-DUR) PO SCH (05:36)
[2022-02-16] MEDS: MAGNESIUM 1 GM/100 ML IVPB 100 ML IV SCH ×3 (05:37→06:22)
[2022-02-16] MEDS ORDERED: MAGNESIUM 1 GM/100 ML IVPB 200 ML IV ONE (05:45)
[2022-02-16] MEDS: predniSONE 20 MG TAB PO SCH (06:22)
[2022-02-16 07:08] VITALS: BP 139/84
--- NOTE | 2022-02-16 07:31 | Physical Therapy Progress Note ---
Therapy Progress Note Patient transferred to ICU secondary to declined in medical status. PT will require new orders when patient is deemed medically stable and able to actively participate with skilled therapy. AMY TRUJILLO PT Feb 16, 2022 07:30
[2022-02-16] MEDS: NICOTINE PATCH REMOVAL TP SCH (08:53)
[2022-02-16] MEDS: NICOTINE 21 MG (NICODERM) PATCH TD SCH (08:53)
--- NOTE | 2022-02-16 08:59 | Tele-ICU Progress Note ---
Subjective Date Seen by a Provider: Feb 16, 2022 Time Seen by a Provider: 08:59 Subjective/Events-last exam (Tele-ICU Physician , progress note) Available chart/ vitals / labs / Images reviewed H&P is from ER notes Patient's information available about PMH, allergy reviewed in EMR. ROS as per chart and RN report Video assessment done using teleICU camera, rest of exam as per RN Discussed with RN. She is not transferred from medical floor to the ICU because patient is found to be drowsy and a blood gas done today revealed a hypercarbic respiratory failure which was worsened since her admission. After transfer to the ICU I have evaluated the patient and she is on a BiPAP ventilation and I have changed her settings and will redraw her blood gas later. Currently she is a DNR status. 02/16. she continued to have agitation and trying to pull off bipap today. also has intermittent hypertensive episodes. Impression 1. Acute exacerbation of COPD 2. Acute on chronic hypercarbic respiratory failure slightly improved 3. Recent history of influenza infection. 4. metabolic encephalopathy. 5. hypertension uncontrolled Recommendations 1. BiPAP ventilation and monitor her saturations 2. Continue steroids and a nebulizer treatments 3 . will start on precedex drip. 4. hydralazine iv prn. 5. haldol iv prn. Sepsis Event Evaluation Height, Weight, BMI Height: 4'11.00" Weight: 151lbs. 14.8oz. 68.211575zz; 23.10 BMI Method:Stated Exam Exam Patient acknowledged, consented, and participated in this virtual visit which was conducted using real time audio/video Vital Signs Date Time Temp Pulse Resp B/P (MAP) Pulse Ox O2 Delivery O2 Flow Rate FiO2 02/16/22 07:53 36.0 02/16/22 07:51 85 02/16/22 07:08 92 19 92 30.00 02/16/22 07:08 35.5 92 92 30 02/16/22 07:00 93 23 139/84 (102) 92 NIV Bilevel 30.00 02/16/22 06:00 90 24 140/68 (92) 94 NIV Bilevel 30.00 02/16/22 05:45 89 21 130/80 (97) 95 NIV Bilevel 30.00 02/16/22 05:06 NIV Bilevel 30.00 02/16/22 04:27 35.5 12/19/22 04:10 93 NIV Bilevel 40 02/16/22 04:00 80 18 130/60 (83) 93 NIV Bilevel 40.00 02/16/22 03:00 87 18 109/59 (76) 94 NIV Bilevel 40.00 02/16/22 02:48 84 18 97 40.00 02/16/22 02:00 89 20 145/67 (93) 95 NIV Bilevel 40.00 02/16/22 01:00 85 02/16/22 01:00 85 16 133/64 (87) 97 NIV Bilevel 60.00 02/16/22 00:00 83 17 141/77 (98) 95 NIV Bilevel 60.00 02/16/22 00:00 95 NIV Bilevel 40 02/15/22 23:51 35.5 02/15/22 23:00 85 23 130/68 (88) 96 NIV Bilevel 60.00 02/15/22 22:09 83 18 99 50.00 02/15/22 22:00 84 26 160/72 (101) 99 NIV Bilevel 60.00 02/15/22 21:15 NIV Bilevel 60.00 02/15/22 21:00 36.0 82 18 142/65 (90) 96 NIV Bilevel 40.00 02/15/22 20:00 79 18 152/67 (95) 95 NIV Bilevel 40.00 02/15/22 19:52 35.9 02/15/22 19:51 95 NIV Bilevel 40 02/15/22 19:29 81 21 100 60.00 02/15/22 19:00 82 02/15/22 19:00 84 18 174/61 (98) 95 NIV Bilevel 40.00 02/15/22 18:00 73 16 171/69 (103) 99 NIV Bilevel 60.00 02/15/22 17:00 66 137/54 (81) 99 NIV Bilevel 60.00 02/15/22 16:00 36.0 02/15/22 16:00 100 NIV Bilevel 80 02/15/22 16:00 70 125/52 (76) 99 NIV Bilevel 60.00 02/15/22 15:00 70 134/59 (84) 100 NIV Bilevel 60.00 02/15/22 14:00 65 18 100 60.00 02/15/22 14:00 64 18 140/55 (83) 100 NIV Bilevel 60.00 02/15/22 13:00 71 12 142/71 (94) 100 NIV Bilevel 60.00 02/15/22 12:56 73 02/15/22 12:00 70 19 140/66 (90) 100 NIV Bilevel 60.00 02/15/22 12:00 97 NIV Bilevel 80 02/15/22 12:00 71 18 100 60.00 02/15/22 11:43 68 02/15/22 11:38 36.4 72 18 157/67 (97) 95 NIV Bilevel 100.00 02/15/22 11:36 69 19 100 100.00 02/15/22 10:29 100 19 94 30.00 02/15/22 10:22 94 Nasal Cannula 3.00 I & O 02/16/22 07:00 Intake Total 350 ml Output Total 750 ml Balance -400 ml Height & Weight Height: 4'11.00" Weight: 151lbs. 14.8oz. 68.844572zb; 23.10 BMI Method:Stated General Appearance: No Apparent Distress, Moderate Distress (moderate respiratory distress) HEENT: PERRL/EOMI, Other (unable to visualize pharnyx) Respiratory: No Accessory Muscle Use, Crackles (bilateral), Decreased Breath Sounds, Wheezing (expiratory wheezing bilaterally, more prominent on L) Cardiovascular: Regular Rate, Rhythm, No Edema Gastrointestinal: non tender, soft Extremity: No Pedal Edema Neurologic/Psychiatric: Alert, No Motor/Sensory Deficits Skin: Normal Color, Warm/Dry Results Lab Laboratory Tests 02/15/22 04:33 02/16/22 04:16 Assessment/Plan Assessment/Plan as above Critical Care: Critically Ill Patient Time spent with patient (mins): 28 AMELIA MERCADO MD Feb 16, 2022 08:59
[2022-02-16] MEDS ORDERED: RT-ALBUTEROL SULF 2.5 MG/3 ML PRE-MIX VIAL INH PRN (09:00)
[2022-02-16] MEDS ORDERED: PROCHLORPERAZINE 10 MG/2ML INJ (COMPAZINE) IV PRN (09:00)
[2022-02-16] MEDS: HALOPERIDOL 5 MG/ML (HALDOL) VIAL IV PRN ×2 (09:38→13:38)
--- NOTE | 2022-02-16 09:39 | Speech Therapy Progress Note ---
Therapy Progress Note Speech language pathology received a consultation for cognitive linguistic assessment, reviewed the patient's medical chart, and attempted the evaluation at 09. Per RN, at this time the patient is not following commands and is not able to appropriately participate in the evaluation. ST to HOLD the evaluation at this time and continue to monitor the patient's chart. ST will continue to attempt the evaluation as the patient is appropriate for participation. TAI BUCKLEY Feb 16, 2022 09:39
[2022-02-16] MEDS: toPIRamate 25 MG (TOPAMAX) TAB PO SCH (09:40)
[2022-02-16] MEDS: lisINopril 20 MG (PRINIVIL) TABLET PO SCH ×2 (09:40→20:40)
[2022-02-16 09:44] VITALS: BP 176/84
[2022-02-16] MEDS: cefTRIAXone 1 GM PRE-MIX 50 ML IV SCH (11:54)
[2022-02-16] MEDS: D5 NS 1000 ML IV SOLUTION 1,000 ML IV SCH (11:54)
[2022-02-16] MEDS: inSUlin ASPART (NovoLOG) 1 UNIT/0.01 ML (CHARGE PER UNIT) SQ SCH ×2 (12:42→18:29)
[2022-02-16] MEDS: DexMEDEtomidine 250 ML DRIP 250 ML IV SCH (12:58)
[2022-02-16] MEDS ORDERED: DexMEDEtomidine 250 ML DRIP 250 ML IV SCH (13:00)
[2022-02-16] MEDS ORDERED: hydrALAZINE (APESOLINE) 20 MG/ML VIAL IV PRN (13:00)
[2022-02-16] MEDS: LORazepam INJ 2 MG/ML (ATIVAN) VIAL IVP PRN ×2 (14:07→23:05)
[2022-02-16 14:29] VITALS: BP 163/72
[2022-02-16] MEDS: ENOXAPARIN 40 MG/0.4 ML (LOVENOX) SYR SC SCH (15:19)
--- NOTE | 2022-02-16 20:26 | Progress Note - Hospitalist ---
Subjective HPI/CC On Admission Date Seen by Provider: Feb 16, 2022 Time Seen by Provider: 09:00 Subjective/Events-last exam She is wearing BiPAP. She is sleeping but arouses to physical stimuli. She opens he eyes when prompted but is not communicating verbally. Objective Exam Vital Signs Vital Signs Date Time Temp Pulse Resp B/P (MAP) Pulse Ox O2 Delivery O2 Flow Rate FiO2 02/16/22 19:44 95 NIV Bilevel 30 02/16/22 18:59 88 20 30.00 02/16/22 18:00 120/91 (101) 02/16/22 16:00 35.4 Capillary Refill : General Appearance: No Apparent Distress, WD/WN Respiratory: No Respiratory Distress, Decreased Breath Sounds Cardiovascular: Regular Rate, Rhythm, No Murmur Gastrointestinal: Normal Bowel Sounds, Soft Extremity: Normal Inspection Neurologic/Psychiatric: Other (lethargic, arouses to physical stimuli, opens eyes when prompted verbally) Skin: Normal Color, Warm/Dry Results/Procedures Lab Laboratory Tests 02/16/22 04:16 Patient resulted labs reviewed. Imaging: Reviewed Imaging Report Assessment/Plan Assessment and Plan Assess & Plan/Chief Complaint Acute on chronic respiratory failure with hypoxia and hypercapnia COPD exacerbation Influenza A BiPAP Steroids MAT protocol Outside window for Tamiflu TeleICU following UTI Urine culture with E coli, await sensitivities Rocephin HTN Continue home meds Hypomagnesemia Monitor and replace as needed DVT prophylaxis: Lovenox Critical Care Critically Ill Patient Diagnosis/Problems Diagnosis/Problems (1) Acute respiratory failure with hypoxia and hypercapnia Status: Acute (2) Acute exacerbation of chronic obstructive pulmonary disease (COPD) Status: Acute (3) Influenza A Status: Acute (4) UTI (urinary tract infection) Status: Acute (5) Leukocytosis Status: Acute (6) HTN (hypertension) Status: Chronic (7) Hypomagnesemia Status: Chronic SARAHI PLAZA MD Feb 16, 2022 20:25
[2022-02-16 22:53] VITALS: BP 144/70
[2022-02-17] MEDS: inSUlin ASPART (NovoLOG) 1 UNIT/0.01 ML (CHARGE PER UNIT) SQ SCH ×5 (00:08→23:30)
[2022-02-17] MEDS: D5 NS 1000 ML IV SOLUTION 1,000 ML IV SCH ×3 (00:40→23:30)
[2022-02-17] MEDS: hydrALAZINE (APESOLINE) 20 MG/ML VIAL IV PRN ×3 (02:31→19:53)
[2022-02-17] MEDS: RT-ALBUTEROL/IPRATROPIUM 3 ML (DUONEB) VIAL IH SCH ×6 (03:20→22:04)
[2022-02-17 03:21] VITALS: BP 175/109
[2022-02-17 03:28] LABS: HEMATOCRIT 39 % (35-52); HEMOGLOBIN 12.2 g/dL (11.5-16.0); MEAN CORPUSCULAR HEMOGLOBIN 29 pg (25-34); MEAN CORPUSCULAR HGB CONC 32 g/dL (32-36); MEAN CORPUSCULAR VOLUME 93 fL (80-99); MEAN PLATELET VOLUME 11.1 fL (9.0-12.2); PLATELET COUNT 193 10^3/uL (130-400); WHITE BLOOD COUNT 11.1 10^3/uL (4.3-11.0)
[2022-02-17 03:29] LABS: ABG BASE EXCESS 9.4 MMOL/L (-2.5-2.5); ABG OXYGEN SATURATION 94 % (94-100); ABG PCO2 54 MMHG (35-45); ABG PH 7.41 (7.37-7.43); ABG PO2 88 MMHG (79-93)
[2022-02-17 03:30] LABS: ALLENS TEST YES-POS; INSPIRED O2 30%; PATIENT TEMP 36.7; VENTILATOR NO
[2022-02-17] MEDS: LORazepam INJ 2 MG/ML (ATIVAN) VIAL IVP PRN ×3 (03:32→12:54)
[2022-02-17 03:45] LABS: POTASSIUM 3.1 MMOL/L (3.6-5.0)
[2022-02-17 03:46] LABS: CALCIUM 10.4 MG/DL (8.5-10.1)
[2022-02-17 03:51] LABS: CREATININE SERUM 0.6 MG/DL (0.60-1.30)
[2022-02-17 03:53] LABS: MAGNESIUM 1.5 MG/DL (1.6-2.4)
[2022-02-17] MEDS: POTASSIUM CL 10MEQ/50ML IVPB 50 ML IV SCH ×5 (04:15→07:32)
[2022-02-17] MEDS: MAGNESIUM 1 GM/100 ML IVPB 100 ML IV SCH ×3 (04:15→05:28)
[2022-02-17] MEDS: KCL 20 MEQ TAB (K-DUR) PO SCH (04:16)
[2022-02-17] MEDS: predniSONE 20 MG TAB PO SCH (06:05)
[2022-02-17 06:29] VITALS: BP 134/66
[2022-02-17] MEDS: NICOTINE PATCH REMOVAL TP SCH (07:21)
--- NOTE | 2022-02-17 07:26 | Physical Therapy Progress Note ---
Therapy Progress Note Patient transferred to ICU secondary to declined in medical status. PT will require new orders when patient is deemed medically stable and able to actively participate with skilled therapy. AMY TRUJILLO PT Feb 17, 2022 07:26
[2022-02-17] MEDS: HALOPERIDOL 5 MG/ML (HALDOL) VIAL IV PRN (07:31)
[2022-02-17] MEDS: NICOTINE 21 MG (NICODERM) PATCH TD SCH (07:32)
[2022-02-17] MEDS: toPIRamate 25 MG (TOPAMAX) TAB PO SCH (08:09)
[2022-02-17] MEDS: lisINopril 20 MG (PRINIVIL) TABLET PO SCH ×2 (08:09→20:30)
--- NOTE | 2022-02-17 08:16 | Diagnostic Imaging Report ---
INDICATION: Respiratory failure COMPARISON: 02/12/2022 TECHNIQUE: Single radiograph chest dated 02/17/2022. FINDINGS: Postsurgical changes of median sternotomy are again identified. The cardiac silhouette is within normal limits in size. No significant pulmonary vascular congestion. Calcified granuloma overlying the right lung is again seen. The lungs appear hyperinflated, consistent background chronic obstructive pulmonary disease. No focal pulmonary opacity. No significant pleural effusion. No pneumothorax. No acute osseous abnormality IMPRESSION: Similar-appearing examination demonstrating background chronic obstructive pulmonary disease without superimposed acute cardiopulmonary abnormality. Dictated by: Dictated on workstation # [id number]
[2022-02-17] MEDS ORDERED: HALOPERIDOL 5 MG/ML (HALDOL) VIAL IM PRN (09:15)
[2022-02-17] MEDS: methylPREDNISolone 40 MG/ML (Solu-MEDROL) VIAL IV SCH ×2 (09:37→21:09)
[2022-02-17 09:56] VITALS: BP 144/63
--- NOTE | 2022-02-17 10:16 | Tele-ICU Progress Note ---
Subjective Date Seen by a Provider: Feb 17, 2022 Time Seen by a Provider: 10:15 Subjective/Events-last exam (Tele-ICU Physician , Progress Note ) Service provided via interactive audio and video telecommunications E-CARE system to a patient admitted to ICU bed in [facility]. Available chart/ vitals / labs / Images reviewed Video assessment done using teleICU camera, rest of exam as per RN Discussed with RN Events overnight : Afebrile hemodynamically stable Respiratory - I/O = Drips: Pressors- no Consultants: Hospital course: (02/12) 76F admittted with COPD exac d/t influenza A, hypercarbic, on Bipap (02/15) transferred to ICU from the floor due to low oxygen saturations. Bipap o2 increased. 02/17 BIPAP -16/12 30% rr 20 TV 500 A/P Acute hypoxic and hypercarbic resp failure ( on chronic -Bipap - 16/12 30% rr 20 TV 500 0 will try to assess if can wean down to NC , if mental status better ( [employer] 3 l o2 at night Anxiety / delirium /- confusion - multifactorial with TME , meds ( Co2 retention corrected now _ as per RN - answered some questions today - on precedex 0.5 -->1.0, also receiving doses of haldol , ativan prn - try to wean down all , and reassess Influenza A ( NEG covid ) - tamiflu not started with presumed dlu > 7 days ago AECOPD due to above - cont nebs , steroids PO - did not received any on PIPAP - will start on modest IV doses and follow if this improve resp status HTN - add prn tx UTI with Ecoli - on rocephin Hypercalcemia - ? ethiology , to follow Nutritions -NPO day #2 -monitor , consider NG tomorrow id can not cooperate - Lines : periph , (Central Line Necessity Reviewed) Taylor: + OG: Nutrition: npo Analgesia: Anxiety/ delirium VTE Prophylaxis: diana 40 Stress Ulcer Prophylaxis: NA Plans in collaboration with bedside consultants and IM MDs. Discussed with RN to reach out if any questions or concerns A total of 32 minutes of critical care time was devoted to this patient today, required to treat and/or prevent further deterioration of critical care condition ( as above ) . I am remotely monitoring this patient from another state. I am unable to do the bedside exam, and history/physical and pertinent information is taken from other notes in the computer and bedside staff. . Sepsis Event Evaluation Height, Weight, BMI Height: 4'11.00" Weight: 151lbs. 14.8oz. 68.522287dt; 23.21 BMI Method:Stated Exam Exam Patient acknowledged, consented, and participated in this virtual visit which was conducted using real time audio/video Vital Signs Date Time Temp Pulse Resp B/P (MAP) Pulse Ox O2 Delivery O2 Flow Rate FiO2 02/17/22 09:56 63 19 97 30.00 02/17/22 08:00 35.6 02/17/22 08:00 97 NIV Bilevel 30 02/17/22 08:00 76 41 120/61 (80) 94 NIV Bilevel 30.00 02/17/22 07:15 78 02/17/22 07:00 87 26 168/82 (110) 97 NIV Bilevel 30.00 02/17/22 06:29 64 19 97 30.00 02/17/22 06:00 64 19 118/49 (72) 95 NIV Bilevel 30.00 02/17/22 05:00 67 21 113/54 (73) 95 NIV Bilevel 30.00 02/17/22 04:00 96 NIV Bilevel 30 02/17/22 04:00 92 28 151/85 (107) 96 NIV Bilevel 30.00 02/17/22 04:00 36.6 NIV Bilevel 30.00 02/17/22 03:21 70 20 97 30.00 02/17/22 03:00 63 21 138/61 (86) 96 NIV Bilevel 30.00 02/17/22 02:00 63 20 133/64 (87) 96 NIV Bilevel 30.00 02/17/22 01:00 67 02/17/22 01:00 67 22 112/58 (76) 95 NIV Bilevel 30.00 02/17/22 00:00 36.2 73 25 167/87 (113) 95 NIV Bilevel 30.00 02/16/22 23:53 94 NIV Bilevel 30 02/16/22 23:30 76 15 181/82 (115) 96 NIV Bilevel 30.00 02/16/22 23:15 74 20 204/92 (129) 96 NIV Bilevel 30.00 02/16/22 23:00 86 26 204/89 (127) 96 NIV Bilevel 30.00 02/16/22 22:53 88 20 94 30.00 02/16/22 22:00 73 17 125/67 (86) 95 NIV Bilevel 30.00 02/16/22 21:15 79 20 137/69 (91) 95 NIV Bilevel 30.00 02/16/22 20:00 36.0 02/16/22 20:00 86 19 169/83 (111) 95 NIV Bilevel 30.00 02/16/22 19:44 95 NIV Bilevel 30 02/16/22 19:30 89 19 153/79 (103) 94 NIV Bilevel 30.00 02/16/22 19:00 89 02/16/22 18:59 88 20 94 30.00 02/16/22 18:00 87 17 120/91 (101) 93 NIV Bilevel 30.00 02/16/22 17:04 86 109/64 02/16/22 17:00 76 19 115/58 (77) 94 NIV Bilevel 30.00 02/16/22 16:00 77 17 91/52 (65) 93 NIV Bilevel 30.00 02/16/22 16:00 35.4 02/16/22 15:22 95 NIV Bilevel 30 02/16/22 15:00 86 19 109/64 (79) 94 NIV Bilevel 30.00 02/16/22 14:29 83 19 93 30.00 02/16/22 14:00 90 13 163/67 (99) 92 NIV Bilevel 30.00 02/16/22 13:30 104 26 158/87 (110) 92 NIV Bilevel 30.00 02/16/22 13:15 105 7 211/106 (141) 92 NIV Bilevel 30.00 02/16/22 12:58 106 155/72 02/16/22 12:30 106 02/16/22 12:00 101 18 166/84 (111) 93 NIV Bilevel 30.00 02/16/22 12:00 36.1 02/16/22 11:45 92 NIV Bilevel 30 02/16/22 11:00 100 18 155/72 (99) 93 NIV Bilevel 30.00 I & O 02/17/22 07:00 Intake Total 1550 ml Output Total 925 ml Balance 625 ml Height & Weight Height: 4'11.00" Weight: 151lbs. 14.8oz. 68.642896vm; 23.21 BMI Method:Stated General Appearance: No Apparent Distress, WD/WN HEENT: PERRL/EOMI, Other (unable to visualize pharnyx) Respiratory: No Respiratory Distress, Decreased Breath Sounds Cardiovascular: Regular Rate, Rhythm, No Murmur Gastrointestinal: non tender, soft Extremity: Normal Inspection Neurologic/Psychiatric: Other (lethargic, arouses to physical stimuli, opens eyes when prompted verbally) Skin: Normal Color, Warm/Dry Results Lab Laboratory Tests 02/16/22 04:16 02/17/22 03:18 Assessment/Plan Assessment/Plan 1 TASIA PADILLA MD Feb 17, 2022 10:16
--- NOTE | 2022-02-17 10:42 | Speech Therapy Progress Note ---
Therapy Progress Note Speech pathology contacted the patient's RN for an update on the patient's status and ability to actively participate in the cognitive linguistic evaluation. Per RN, the patient's status has minimally changed, however, she does not feel the patient would be able to complete the evaluation at this time. Speech pathology will continue to monitor the patient's progress and requested contact from the RN if the patient improves and is able to participate. TAI BUCKLEY Feb 17, 2022 10:42
[2022-02-17] MEDS: DexMEDEtomidine 250 ML DRIP 250 ML IV SCH (11:27)
[2022-02-17] MEDS: cefTRIAXone 1 GM PRE-MIX 50 ML IV SCH (11:27)
[2022-02-17 14:27] VITALS: BP 136/73
[2022-02-17] MEDS: ENOXAPARIN 40 MG/0.4 ML (LOVENOX) SYR SC SCH (15:24)
--- NOTE | 2022-02-17 17:37 | Progress Note - Hospitalist ---
Subjective HPI/CC On Admission Date Seen by Provider: Feb 17, 2022 Time Seen by Provider: 09:15 Subjective/Events-last exam She is sedated. She was reportedly agitated this morning and her sedation had to be increased. She remains on BiPAP. Discussed her baseline with her . He says she has been declining for several years, ever since she had a bypass surgery. She does not do very much now. She usually just sits around and watches television. He says she does normally take care of herself and she is usually home by herself when he is working. He does report some baseline confusion and says she was always worried about developing dementia since her mother had that diagnosis. Objective Exam Vital Signs Vital Signs Date Time Temp Pulse Resp B/P (MAP) Pulse Ox O2 Delivery O2 Flow Rate FiO2 02/17/22 15:52 35.8 02/17/22 15:19 58 136/73 02/17/22 15:18 97 NIV Bilevel 30 02/17/22 15:00 30.00 02/17/22 14:27 20 Capillary Refill : General Appearance: No Apparent Distress, WD/WN Respiratory: Lungs Clear, No Respiratory Distress, Other (BiPAP) Cardiovascular: Regular Rate, Rhythm, No Murmur Gastrointestinal: Normal Bowel Sounds, Soft Extremity: Normal Inspection, No Pedal Edema Neurologic/Psychiatric: Other (sedated) Skin: Normal Color, Warm/Dry Results/Procedures Lab Laboratory Tests 02/17/22 03:18 Patient resulted labs reviewed. Imaging: Reviewed Imaging Report Assessment/Plan Assessment and Plan Assess & Plan/Chief Complaint Acute on chronic respiratory failure with hypoxia and hypercapnia COPD exacerbation Influenza A BiPAP Steroids MAT protocol Outside window for Tamiflu TeleICU following UTI Urine culture with E coli Continue Rocephin HTN Continue home meds Hypomagnesemia Monitor and replace as needed Poor prognosis Likely dementia Delirium Discussed baseline and current status with , Sergio, updated regarding poor current condition DVT prophylaxis: Lovenox Critical Care Critically Ill Patient Diagnosis/Problems Diagnosis/Problems (1) Acute respiratory failure with hypoxia and hypercapnia Status: Acute (2) Acute exacerbation of chronic obstructive pulmonary disease (COPD) Status: Acute (3) Influenza A Status: Acute (4) UTI (urinary tract infection) Status: Acute (5) Leukocytosis Status: Acute (6) HTN (hypertension) Status: Chronic (7) Hypomagnesemia Status: Chronic SARAHI PLAZA MD Feb 17, 2022 17:37
[2022-02-17 19:19] VITALS: BP 179/91
[2022-02-17 22:05] VITALS: BP 155/73
[2022-02-18] MEDS: D5 NS 1000 ML IV SOLUTION 1,000 ML IV SCH (00:14)
[2022-02-18 02:29] VITALS: BP 182/89
[2022-02-18] MEDS: RT-ALBUTEROL/IPRATROPIUM 3 ML (DUONEB) VIAL IH SCH ×6 (02:29→22:21)
[2022-02-18] MEDS: hydrALAZINE (APESOLINE) 20 MG/ML VIAL IV PRN ×4 (03:14→23:26)
[2022-02-18 04:01] LABS: HEMATOCRIT 38 % (35-52); HEMOGLOBIN 12.2 g/dL (11.5-16.0); MEAN CORPUSCULAR HEMOGLOBIN 30 pg (25-34); MEAN CORPUSCULAR HGB CONC 32 g/dL (32-36); MEAN CORPUSCULAR VOLUME 92 fL (80-99); MEAN PLATELET VOLUME 11.3 fL (9.0-12.2); PLATELET COUNT 173 10^3/uL (130-400); WHITE BLOOD COUNT 6.6 10^3/uL (4.3-11.0)
[2022-02-18 04:04] LABS: POTASSIUM 3.4 MMOL/L (3.6-5.0)
[2022-02-18 04:05] LABS: CALCIUM 9.8 MG/DL (8.5-10.1)
[2022-02-18 04:09] LABS: CREATININE SERUM 0.52 MG/DL (0.60-1.30)
[2022-02-18 04:12] LABS: MAGNESIUM 1.6 MG/DL (1.6-2.4)
[2022-02-18] MEDS: MAGNESIUM 1 GM/100 ML IVPB 100 ML IV SCH ×3 (04:18→07:25)
[2022-02-18] MEDS: POTASSIUM CL 10MEQ/50ML IVPB 50 ML IV SCH ×3 (04:18→05:19)
[2022-02-18] MEDS: KCL 20 MEQ TAB (K-DUR) PO SCH (04:18)
[2022-02-18] MEDS: inSUlin ASPART (NovoLOG) 1 UNIT/0.01 ML (CHARGE PER UNIT) SQ SCH ×4 (04:34→23:31)
[2022-02-18] MEDS: DexMEDEtomidine 250 ML DRIP 250 ML IV SCH (05:20)
[2022-02-18 06:37] VITALS: BP 172/73
--- NOTE | 2022-02-18 07:56 | Physical Therapy Progress Note ---
Therapy Progress Note Patient transferred to ICU secondary to declined in medical status. PT will require new orders when patient is deemed medically stable and able to actively participate with skilled therapy. STEFFANIE ANGLIN PT Feb 18, 2022 07:56
[2022-02-18] MEDS: PANTOPRAZOLE 40 MG (PROTONIX) VIAL IV SCH (08:38)
[2022-02-18] MEDS: lisINopril 20 MG (PRINIVIL) TABLET PO SCH ×2 (08:39→20:33)
[2022-02-18] MEDS: toPIRamate 25 MG (TOPAMAX) TAB PO SCH (08:39)
[2022-02-18] MEDS: NICOTINE 21 MG (NICODERM) PATCH TD SCH (08:43)
[2022-02-18] MEDS: NICOTINE PATCH REMOVAL TP SCH (09:02)
--- NOTE | 2022-02-18 10:17 | Tele-ICU Progress Note ---
Subjective Date Seen by a Provider: Feb 18, 2022 Time Seen by a Provider: 10:17 Subjective/Events-last exam (Tele-ICU Physician , Progress Note ) Service provided via interactive audio and video telecommunications E-CARE system to a patient admitted to ICU bed in [facility]. Available chart/ vitals / labs / Images reviewed Video assessment done using teleICU camera, rest of exam as per RN Discussed with RN Events overnight : Afebrile hemodynamically stable Respiratory - 25% I/O = POS 1.4L Drips: off Pressors- no Consultants: Hospital course: (02/12) 76F admittted with COPD exac d/t influenza A, hypercarbic, on Bipap (02/15) transferred to ICU from the floor due to low oxygen saturations. Bipap o2 increased. 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 ethiology , as per PCP Nutritions -NPO day #3 -monitor , consider NG tomorrow id can not cooperate - Lines : periph , (Central Line Necessity Reviewed) Taylor: + OG: Nutrition: npo Analgesia: Anxiety/ delirium VTE Prophylaxis: diana 40 Stress Ulcer Prophylaxis: NA Plans in collaboration with bedside consultants and IM MDs. Discussed with RN to reach out if any questions or concerns A total of 32 minutes of critical care time was devoted to this patient today, required to treat and/or prevent further deterioration of critical care condition ( as above ) . I am remotely monitoring this patient from another state. I am unable to do the bedside exam, and history/physical and pertinent information is taken from other notes in the computer and bedside staff. . Sepsis Event Evaluation Height, Weight, BMI Height: 4'11.00" Weight: 151lbs. 14.8oz. 68.800977ab; 23.87 BMI Method:Stated Exam Exam Patient acknowledged, consented, and participated in this virtual visit which was conducted using real time audio/video Vital Signs Date Time Temp Pulse Resp B/P (MAP) Pulse Ox O2 Delivery O2 Flow Rate FiO2 02/18/22 09:00 64 18 150/67 (94) 96 NIV Bilevel 25.00 02/18/22 08:00 62 17 140/72 (94) 96 NIV Bilevel 25.00 02/18/22 08:00 35.8 02/18/22 08:00 94 NIV Bilevel 25 02/18/22 07:42 62 02/18/22 07:00 65 16 141/83 (102) 97 NIV Bilevel 25.00 02/18/22 06:37 63 18 97 25.00 02/18/22 06:00 62 18 163/82 (109) 97 NIV Bilevel 25.00 02/18/22 05:00 72 21 177/86 (116) 97 NIV Bilevel 25.00 02/18/22 04:39 95 NIV Bilevel 25 02/18/22 04:00 57 147/65 (92) 96 NIV Bilevel 25.00 02/18/22 03:30 35.7 02/18/22 03:00 58 176/81 (112) 97 NIV Bilevel 25.00 02/18/22 02:29 58 18 97 25.00 02/18/22 02:00 61 20 167/78 (107) 97 NIV Bilevel 25.00 02/18/22 01:00 62 20 189/87 (121) 94 NIV Bilevel 25.00 02/18/22 01:00 61 02/18/22 00:00 61 16 171/74 (106) 94 NIV Bilevel 25.00 02/17/22 23:59 96 NIV Bilevel 25 02/17/22 23:54 35.8 02/17/22 23:00 63 165/93 (117) 94 NIV Bilevel 25.00 02/17/22 22:05 60 18 96 25.00 02/17/22 22:00 60 19 143/69 (93) 95 NIV Bilevel 25.00 02/17/22 21:00 60 20 145/66 (92) 95 NIV Bilevel 25.00 02/17/22 20:04 96 NIV Bilevel 25 02/17/22 20:00 62 150/66 (94) 97 NIV Bilevel 25.00 02/17/22 19:43 35.8 02/17/22 19:19 60 20 98 30.00 02/17/22 19:00 67 20 170/78 (108) 96 NIV Bilevel 25.00 02/17/22 19:00 66 02/17/22 18:00 62 148/75 (99) 97 NIV Bilevel 30.00 02/17/22 17:00 63 154/75 (101) 97 NIV Bilevel 30.00 02/17/22 16:00 64 137/66 (89) 97 NIV Bilevel 30.00 02/17/22 15:52 35.8 02/17/22 15:19 58 136/73 02/17/22 15:18 97 NIV Bilevel 30 02/17/22 15:00 62 136/68 (90) 97 NIV Bilevel 30.00 02/17/22 14:27 58 20 97 30.00 02/17/22 14:00 60 144/66 (92) 97 NIV Bilevel 30.00 02/17/22 13:00 61 184/82 (116) 99 NIV Bilevel 30.00 02/17/22 12:39 97 NIV Bilevel 30 02/17/22 12:16 60 02/17/22 12:00 60 172/80 (110) 97 NIV Bilevel 30.00 02/17/22 11:53 35.8 02/17/22 11:27 61 156/71 02/17/22 11:00 60 22 158/74 (102) 96 NIV Bilevel 30.00 I & O 02/18/22 07:00 Intake Total 2750 ml Output Total 1200 ml Balance 1550 ml Height & Weight Height: 4'11.00" Weight: 151lbs. 14.8oz. 68.107377an; 23.87 BMI Method:Stated General Appearance: No Apparent Distress, WD/WN HEENT: PERRL/EOMI, Other (unable to visualize pharnyx) Respiratory: Lungs Clear, No Respiratory Distress, Other (BiPAP) Cardiovascular: Regular Rate, Rhythm, No Murmur Gastrointestinal: non tender, soft Extremity: Normal Inspection, No Pedal Edema Neurologic/Psychiatric: Other (sedated) Skin: Normal Color, Warm/Dry Results Lab Laboratory Tests 02/17/22 03:18 02/18/22 03:45 Assessment/Plan Assessment/Plan 1 TASIA PADILLA MD Feb 18, 2022 10:17
[2022-02-18 10:30] VITALS: BP 153/80
[2022-02-18] MEDS: methylPREDNISolone 40 MG/ML (Solu-MEDROL) VIAL IV SCH ×2 (12:28→21:33)
[2022-02-18] MEDS: cefTRIAXone 1 GM PRE-MIX 50 ML IV SCH (12:28)
--- NOTE | 2022-02-18 13:45 | Speech Therapy Progress Note ---
Therapy Progress Note Speech language pathology received a consultation for a clinical bedside swallowing evaluation, the patient's chart was reviewed, and the clinician attempted the evaluation at 1330. As the clinician also has cognitive orders on the patient, the clinician attempted both evaluations. The patient was found sleeping in her bed and woke to a clinician verbal greeting. The clinician was oriented to self and location. The patient was positioned upright in bed for the evaluation while the clinician stepped out of the room to collect P.O. items. When the clinician returned, the patient displayed significant fatigue. The patient would wake to her name, however, was unable to remain in a wakeful state for participation in the evaluation regardless of consistent prompting. The patient was positioned supine in bed with her head elevated. ST will re-attempt the assessments as the patient is able to appropriately participate. TAI BUCKLEY Feb 18, 2022 13:45
--- NOTE | 2022-02-18 14:08 | Progress Note - Hospitalist ---
Subjective HPI/CC On Admission Date Seen by Provider: Feb 18, 2022 Time Seen by Provider: 08:40 Subjective/Events-last exam She is sedated. She has had issues with agitation. She remains on BiPAP. Objective Exam Vital Signs Vital Signs Date Time Temp Pulse Resp B/P (MAP) Pulse Ox O2 Delivery O2 Flow Rate FiO2 02/18/22 13:28 97 02/18/22 12:00 21 167/85 (112) 99 Nasal Cannula 4.00 02/18/22 08:00 35.8 02/18/22 08:00 25 Capillary Refill : General Appearance: No Apparent Distress, Chronically ill Respiratory: Lungs Clear, No Respiratory Distress Cardiovascular: Regular Rate, Rhythm, No Murmur Gastrointestinal: Normal Bowel Sounds, Soft Extremity: Normal Inspection, No Pedal Edema Neurologic/Psychiatric: Other (sedated) Skin: Normal Color, Warm/Dry Results/Procedures Lab Laboratory Tests 02/18/22 03:45 Patient resulted labs reviewed. Imaging: Reviewed Imaging Report Assessment/Plan Assessment and Plan Assess & Plan/Chief Complaint Acute on chronic respiratory failure with hypoxia and hypercapnia COPD exacerbation Influenza A Remains on BiPAP Wean sedation as able Steroids MAT protocol Outside window for Tamiflu TeleICU following UTI Urine culture with E coli Continue Rocephin HTN Continue home meds Hypomagnesemia Monitor and replace as needed Poor prognosis Likely dementia Delirium Consult palliative care May need goals of care discussion soon DVT prophylaxis: Lovenox Critical Care Critically Ill Patient Diagnosis/Problems Diagnosis/Problems (1) Acute respiratory failure with hypoxia and hypercapnia Status: Acute (2) Acute exacerbation of chronic obstructive pulmonary disease (COPD) Status: Acute (3) Influenza A Status: Acute (4) UTI (urinary tract infection) Status: Acute (5) Leukocytosis Status: Resolved Resolution Date/Time: 02/18/22 @ 14:07 (6) HTN (hypertension) Status: Chronic (7) Hypomagnesemia Status: Chronic SARAHI PLAZA MD Feb 18, 2022 14:08
[2022-02-18 14:34] LABS: ABG OXYGEN SATURATION 94 % (94-100); ABG PCO2 48 MMHG (35-45); ABG PH 7.38 (7.37-7.43); ABG PO2 71 MMHG (79-93); ABG TCO2 29.5 MMOL/L (21.0-31.0); ALLENS TEST YES-POS; INSPIRED O2 25%; PATIENT TEMP 36.1; VENTILATOR NO
[2022-02-18] MEDS: ENOXAPARIN 40 MG/0.4 ML (LOVENOX) SYR SC SCH (17:57)
[2022-02-18 22:21] VITALS: BP 153/80
[2022-02-19 02:26] VITALS: BP 174/75
[2022-02-19] MEDS: RT-ALBUTEROL/IPRATROPIUM 3 ML (DUONEB) VIAL IH SCH ×6 (02:26→22:58)
[2022-02-19] MEDS: hydrALAZINE (APESOLINE) 20 MG/ML VIAL IV PRN ×4 (03:29→18:56)
[2022-02-19 05:58] LABS: POTASSIUM 3.9 MMOL/L (3.6-5.0)
[2022-02-19 05:59] LABS: CALCIUM 10.1 MG/DL (8.5-10.1)
[2022-02-19 06:00] LABS: HEMATOCRIT 36 % (35-52); HEMOGLOBIN 11.5 g/dL (11.5-16.0); MEAN CORPUSCULAR HEMOGLOBIN 29 pg (25-34); MEAN CORPUSCULAR HGB CONC 32 g/dL (32-36); MEAN CORPUSCULAR VOLUME 91 fL (80-99); MEAN PLATELET VOLUME 11.1 fL (9.0-12.2); PLATELET COUNT 235 10^3/uL (130-400); WHITE BLOOD COUNT 8.1 10^3/uL (4.3-11.0)
[2022-02-19 06:03] LABS: CREATININE SERUM 0.61 MG/DL (0.60-1.30)
[2022-02-19 06:06] LABS: MAGNESIUM 1.7 MG/DL (1.6-2.4)
[2022-02-19] MEDS: POTASSIUM CL 10MEQ/50ML IVPB 50 ML IV SCH (06:24)
[2022-02-19] MEDS: KCL 20 MEQ TAB (K-DUR) PO SCH (06:25)
[2022-02-19] MEDS: inSUlin ASPART (NovoLOG) 1 UNIT/0.01 ML (CHARGE PER UNIT) SQ SCH ×3 (06:29→18:57)
[2022-02-19] MEDS: MAGNESIUM 1 GM/100 ML IVPB 100 ML IV SCH ×3 (06:30→08:14)
[2022-02-19] MEDS ORDERED: MAGNESIUM 2 GM/50 ML IVPB 50 ML IV ONE (07:00)
[2022-02-19 07:23] VITALS: BP 184/86
[2022-02-19] MEDS: DexMEDEtomidine 250 ML DRIP 250 ML IV SCH (08:03)
[2022-02-19] MEDS: NICOTINE 21 MG (NICODERM) PATCH TD SCH (08:04)
[2022-02-19] MEDS: lisINopril 20 MG (PRINIVIL) TABLET PO SCH ×2 (08:04→21:23)
[2022-02-19] MEDS: PANTOPRAZOLE 40 MG (PROTONIX) VIAL IV SCH (08:05)
[2022-02-19] MEDS: toPIRamate 25 MG (TOPAMAX) TAB PO SCH (08:14)
[2022-02-19] MEDS: methylPREDNISolone 40 MG/ML (Solu-MEDROL) VIAL IV SCH (08:45)
--- NOTE | 2022-02-19 09:19 | Tele-ICU Progress Note ---
Subjective Date Seen by a Provider: Feb 19, 2022 Time Seen by a Provider: 09:19 Subjective/Events-last exam (Tele-ICU Physician , Progress Note ) Service provided via interactive audio and video telecommunications E-CARE system to a patient admitted to ICU bed in [facility]. Available chart/ vitals / labs / Images reviewed Video assessment done using teleICU camera, rest of exam as per RN Discussed with RN Events overnight : Afebrile hemodynamically stable Respiratory - 25% I/O = POS 1.4L Drips: off Pressors- no Consultants: Hospital course: (02/12) 76F admittted with COPD exac d/t influenza A, hypercarbic, on Bipap (02/15) transferred to ICU from the floor due to low oxygen saturations. Bipap o2 increased. 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 ethiology , as per PCP Nutritions -starting Lines : periph , (Central Line Necessity Reviewed) Taylor: + OG: Nutrition: npo Analgesia: Anxiety/ delirium VTE Prophylaxis: diana 40 Stress Ulcer Prophylaxis: NA Plans in collaboration with bedside consultants and IM MDs. Discussed with RN to reach out if any questions or concerns A total of 32 minutes of critical care time was devoted to this patient today, required to treat and/or prevent further deterioration of critical care condition ( as above ) . I am remotely monitoring this patient from another state. I am unable to do the bedside exam, and history/physical and pertinent information is taken from other notes in the computer and bedside staff. . Sepsis Event Evaluation Height, Weight, BMI Height: 4'11.00" Weight: 151lbs. 14.8oz. 68.380059pa; 23.87 BMI Method:Stated Exam Exam Patient acknowledged, consented, and participated in this virtual visit which was conducted using real time audio/video Vital Signs Date Time Temp Pulse Resp B/P (MAP) Pulse Ox O2 Delivery O2 Flow Rate FiO2 02/19/22 08:03 72 184/86 02/19/22 08:00 90 22 190/90 (123) 96 Nasal Cannula 3.00 02/19/22 08:00 Nasal Cannula 3.00 02/19/22 07:54 96 High Flow N/C 3.00 02/19/22 07:43 37.3 02/19/22 07:23 72 21 96 25.00 02/19/22 07:00 67 02/19/22 07:00 66 32 194/80 (118) 97 NIV Bilevel 25.00 02/19/22 06:00 73 24 178/76 (110) 94 NIV Bilevel 25.00 02/19/22 05:00 73 30 171/67 (101) 94 NIV Bilevel 25.00 02/19/22 04:00 84 22 165/70 (101) 94 NIV Bilevel 25.00 02/19/22 04:00 97 NIV Bilevel 25 02/19/22 03:33 35.8 02/19/22 03:00 75 23 165/72 (103) 94 NIV Bilevel 25.00 02/19/22 02:26 78 19 94 25.00 02/19/22 02:00 80 25 181/72 (108) 94 NIV Bilevel 25.00 02/19/22 01:03 75 02/19/22 01:00 81 32 171/67 (101) 93 NIV Bilevel 25.00 02/19/22 00:00 94 NIV Bilevel 25 02/19/22 00:00 79 20 153/59 (90) 93 NIV Bilevel 25.00 02/18/22 23:32 84 172/80 02/18/22 23:28 37.2 84 20 177/69 (105) 93 NIV Bilevel 25.00 02/18/22 23:00 84 26 172/80 (110) 92 NIV Bilevel 25.00 02/18/22 22:21 79 20 97 25.00 02/18/22 22:14 89 20 154/64 (94) 96 NIV Bilevel 25.00 02/18/22 22:00 78 22 189/83 (118) 98 Nasal Cannula 3.00 02/18/22 21:00 91 15 147/59 (88) 97 Nasal Cannula 3.00 02/18/22 20:00 36.9 02/18/22 20:00 108 22 171/82 (111) 93 Nasal Cannula 3.00 02/18/22 20:00 97 Nasal Cannula 3.00 02/18/22 19:28 101 02/18/22 19:00 104 28 161/78 (105) 95 Nasal Cannula 3.00 02/18/22 18:25 97 Nasal Cannula 3.00 02/18/22 18:00 101 16 163/89 (113) 97 Nasal Cannula 3.00 02/18/22 17:00 101 16 170/79 (109) 96 Nasal Cannula 3.00 02/18/22 16:00 35.4 02/18/22 16:00 99 15 152/79 (103) 97 Nasal Cannula 3.00 02/18/22 16:00 98 Nasal Cannula 4.00 02/18/22 15:00 98 14 162/75 (104) 100 Nasal Cannula 3.00 02/18/22 14:51 99 Nasal Cannula 4.00 02/18/22 14:00 92 36 150/75 (100) 99 Nasal Cannula 3.00 02/18/22 13:28 97 02/18/22 13:00 96 21 142/71 (94) 99 Nasal Cannula 4.00 02/18/22 12:00 96 Nasal Cannula 4.00 02/18/22 12:00 106 21 167/85 (112) 99 Nasal Cannula 4.00 02/18/22 11:00 95 19 153/91 (111) 99 Nasal Cannula 4.00 02/18/22 11:00 Nasal Cannula 4.00 02/18/22 10:30 79 20 95 25.00 02/18/22 10:00 78 18 156/82 (106) 97 NIV Bilevel 25.00 02/18/22 09:20 106 167/85 I & O 02/19/22 07:00 Output Total 875 ml Balance -875 ml Height & Weight Height: 4'11.00" Weight: 151lbs. 14.8oz. 68.881098wz; 23.87 BMI Method:Stated General Appearance: No Apparent Distress, Chronically ill HEENT: PERRL/EOMI, Other (unable to visualize pharnyx) Respiratory: Lungs Clear, No Respiratory Distress Cardiovascular: Regular Rate, Rhythm, No Murmur Gastrointestinal: non tender, soft Extremity: Normal Inspection, No Pedal Edema Neurologic/Psychiatric: Other (sedated) Skin: Normal Color, Warm/Dry Results Lab Laboratory Tests 02/18/22 03:45 02/19/22 05:24 Assessment/Plan Assessment/Plan 1 TASIA PADILLA MD Feb 19, 2022 09:19
[2022-02-19] MEDS: NICOTINE PATCH REMOVAL TP SCH (09:37)
[2022-02-19] MEDS: ALPRAZolam 0.5 MG (XANAX) TAB PO PRN (10:09)
[2022-02-19] MEDS ORDERED: SPIRONOLACTONE 25 MG (ALDACTONE) TAB PO NR (10:30)
--- NOTE | 2022-02-19 11:21 | Physical Therapy Evaluation ---
PT Evaluation-General Medical Diagnosis Admission Date Feb 12, 2022 at 13:26 Medical Diagnosis: Flu A; Acute exacerbation of COPD with respiratory distress Onset Date: Feb 13, 2022 Therapy Diagnosis Therapy Diagnosis: weakness; impaired mobility Height/Weight Height (Feet): 4 Height (Inches): 11.00 Weight (Pounds): 151 Weight (Ounces): 14.8 Precautions Precautions/Isolations: Fall Prevention, Standard Precautions Weight Bear Status Full Weight Bearing Full Weight Bearing Referral Physician: Allen Reason for Referral: Evaluation/Treatment Medical History Pertinent Medical History: CABG, CAD, COPD, GERD, HTN, Smoking Current History Pt admitted to the ER 02/12 with progressive SOB, cough, and weakness. Admitted to [address] [place] [address] then transferred to ICU as her condition declined. Pt now showing improved medical stability and ready to begin PT. Reviewed History: Yes Social History Home: Single Level Current Living Status: Spouse Prior Prior Level of Function SCALE: Activities may be completed with or without assistive devices. 5-Tmoweaycgn-jbvbyyd completes the activity by him/herself with no assistance from a helper. 5-Set-up or Clean-up Assistance-helper sets up or cleans up; patient completes activity. Gay assists only prior to or following the activity. 4-Supervision or Touching Assistance-helper provides verbal cues and/or touching/steadying and/or contact guard assistance as patient completes activity. Assistance may be provided throughout the activity or intermittently. 3-Partial/Moderate Assistance-helper does LESS THAN HALF the effort. Gay lifts, holds or supports trunk or limbs, but provides less than half the effort. 2-Substantial/Maximal Assistance-helper does MORE THAN HALF the effort. Gay lifts or holds trunk or limbs and provides more than half the effort. 5-Jbfujwfox-rbvmoo does ALL the effort. Patient does none of the effort to complete the activity. Or, the assistance of 2 or more helpers is required for the patient to complete the activity. If activity was not attempted, code reason: 7-Patient Refused. 9-Not Applicable-not attempted and the patient did not perform the activity before the current illness, exacerbation or injury. 10-Not Attempted due to Environmental Limitations-(lack of equipment, weather restraints, etc.). 88-Not Attempted due to Medical Conditions or Safety Concerns. Bed Mobility: 6 Transfers (B,C,W/C): 6 Gait: 6 Stairs: 6 Indoor Mobility (Ambulation): Independent Stairs: Independent Prior Devices Use: None Prior Device Use: none PT Evaluation-Current Subjective Pt very limited verbalization but understands all commands and was able to make one word statements. Objective Patient Orientation: Place, Situation Attachments: Oxygen, Taylor Catheter, IV ROM/Strength ROM Lower Extremities WFL Strength Lower Extremities gross 4/5 Integumentary/Posture Bladder Incontinence: Taylor Cath Sensory Vision: Functional Hearing: Functional Sensation Right Upper Extremit: Intact Sensation Left Upper Extremity: Intact Sensation Right Lower Extremit: Intact Sensation Left Lower Extremity: Intact Transfers Roll Left to Right (QC): 4 Sit to Lying (QC): 4 Lying to Sitting/Side of Bed(Q: 4 Sit to Stand (QC): 4 Bed mobility, transfers all with Min A for steadying. Gait Does the Patient Walk?: Yes Mode of Locomotion: Walk Anticipated Mode of Locomotion: Walk Gait Assistive Device: None Balance Sitting Static: Fair Sitting Dynamic: Fair Standing Static: Fair Standing Dynamic: Poor Special Test Comments Pt needed assist to maintain balance when marching in place. 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 PT Skilled Nursing Goals Time Frame: Feb 27, 2022 Roll Left & Right (QC): 6 Sit to Lying (QC): 6 Lying-Sitting on Side/Bed(QC): 6 Sit to Stand (QC): 6 Chair/Ivn-va-Vulqv Xfer(QC): 6 Toilet Transfer (QC): 6 Car Transfer (QC): 6 Does the Patient Walk: Yes Walk 10 feet (QC): 6 Walk 50ft with 2 Turns (QC): 6 Walk 150 ft (QC): 6 Walking 10ft on Uneven Surface: 6 1 Step (curb) (QC): 6 4 Steps (QC): 6 12 Steps (QC): 6 Picking up an Object (QC): 6 PT Plan Problem List Problem List: Activity Tolerance, Balance, Gait, Transfer, Bed Mobility Treatment/Plan Treatment Plan: Continue Plan of Care Treatment Plan: Bed Mobility, Functional Activity Lou, Functional Strength, Gait, Safety, Therapeutic Exercise, Transfers Treatment Duration: Feb 27, 2022 Frequency: 11 times per week Estimated Hrs Per Day: .5 hour per day Patient and/or Family Agrees t: Yes Discharge Recommendations Target Placement post acute therapy Time Time In: 1100 Time Out: 1120 DATE: Feb 19, 2022 Total Billed Treatment Time: 30 Total Billed Treatment 1, Eval high complexity 30 min BENJAMIN RODRIGUEZ PT Feb 19, 2022 11:21
--- NOTE | 2022-02-19 11:25 | Progress Note - Hospitalist ---
Subjective HPI/CC On Admission Date Seen by Provider: Feb 19, 2022 Time Seen by Provider: 09:20 Subjective/Events-last exam She is doing much better today. She is alert and oriented. She is thirsty. She denies pain. She is not short of breath. Objective Exam Vital Signs Vital Signs Date Time Temp Pulse Resp B/P (MAP) Pulse Ox O2 Delivery O2 Flow Rate FiO2 02/19/22 11:00 99 24 183/71 (108) 92 Nasal Cannula 3.00 02/19/22 07:43 37.3 02/19/22 04:00 25 Capillary Refill : General Appearance: No Apparent Distress, WD/WN Respiratory: Lungs Clear, No Respiratory Distress Cardiovascular: Regular Rate, Rhythm, No Murmur Gastrointestinal: Normal Bowel Sounds, Soft Extremity: Normal Inspection, No Pedal Edema Neurologic/Psychiatric: Alert, Motor Weakness Skin: Normal Color, Warm/Dry Results/Procedures Lab Laboratory Tests 02/19/22 05:24 Patient resulted labs reviewed. Imaging: Reviewed Imaging Report Assessment/Plan Assessment and Plan Assess & Plan/Chief Complaint Acute on chronic respiratory failure with hypoxia and hypercapnia COPD exacerbation Influenza A Off BiPAP Steroids MAT protocol Outside window for Tamiflu TeleICU following Anxiety Wean Precedex as able Started on Xanax Debility PT/OT UTI Urine culture with E coli Continue Rocephin HTN Continue home meds Hypomagnesemia Monitor and replace as needed Delirium Resolved DVT prophylaxis: Lovenox Critical Care Critically Ill Patient Diagnosis/Problems Diagnosis/Problems (1) Acute respiratory failure with hypoxia and hypercapnia Status: Acute (2) Acute exacerbation of chronic obstructive pulmonary disease (COPD) Status: Acute (3) Influenza A Status: Acute (4) UTI (urinary tract infection) Status: Acute (5) Leukocytosis Status: Resolved Resolution Date/Time: 02/18/22 @ 14:07 (6) HTN (hypertension) Status: Chronic (7) Hypomagnesemia Status: Chronic SARAHI PLAZA MD Feb 19, 2022 11:25
[2022-02-19] MEDS: cefTRIAXone 1 GM PRE-MIX 50 ML IV SCH (11:43)
--- NOTE | 2022-02-19 11:47 | Occupational Therapy Eval ---
OT Evaluation-General/PLF Medical Diagnosis Admission Date Feb 12, 2022 at 13:26 Medical Diagnosis: Flu A; Acute exacerbation of COPD with respiratory distress Onset Date: Feb 13, 2022 Therapy Diagnosis Therapy Diagnosis: reduced adl status Height/Weight Height (Feet): 4 Height (Inches): 11.00 Weight (Pounds): 151 Weight (Ounces): 14.8 Precautions Precautions/Isolations: Fall Prevention, Standard Precautions Referral Physician: Allen Referral Reason: Evaluation/Treatment Medical History Pertinent Medical History: CABG, CAD, COPD, GERD, HTN, Smoking Current History Pt presented to hospital with SOB, cough, and weakness. Found to be positive for influenza A. Pt was intubated for a few days and extubated 02/19. Per patient, she lives with her spouse in a single story home. She was indep with adls and iadls prior to admission and was not using any AD at baseline. Social History Home: Single Level Current Living Status: Spouse ADL-Prior Level of Function SCALE: Activities may be completed with or without assistive devices. 0-Oqxcbogaty-hqrdadv completes the activity by him/herself with no assistance from a helper. 5-Set-up or Clean-up Assistance-helper sets up or cleans up; patient completes a ctivity. [place] assists only prior to or following the activity. 4-Supervision or Touching Assistance-helper provides verbal cues and/or touching/steadying and/or contact guard assistance as patient completes activity. Assistance may be provided throughout the activity or intermittently. 3-Partial/Moderate Assistance-helper does LESS THAN HALF the effort. [place] lifts, holds or supports trunk or limbs, but provides less than half the effort. 2-Substantial/Maximal Assistance-helper does MORE THAN HALF the effort. [place] lifts or holds trunk or limbs and provides more than half the effort. 0-Oducwqcrm-pcfjwl does ALL the effort. Patient does none of the effort to complete the activity. Or, the assistance of 2 or more helpers is required for the patient to complete the activity. If activity was not attempted, code reason: 7-Patient Refused. 9-Not Applicable-not attempted and the patient did not perform the activity before the current illness, exacerbation or injury. 10-Not Attempted due to Environmental Limitations-(lack of equipment, weather restraints, etc.). 88-Not Attempted due to Medical Conditions or Safety Concerns. Self Care: Independent Functional Cognition: Independent DME/Equipment: Bath Chair, Grab Bars, Shower OT Current Status Subjective Pt fatigued but agreeable to evaluation. Appearance Pt returned to supine in bed, all needs within reach at therapy departure. RN notified. Mental Status/Objective Patient Orientation: Person, Place Attachments: Burnham Catheter, IV, Oxygen, SCD's, Telemetry Current Glasses/Contacts: Yes (reading glasses) Hearing Aids: No Dentures/Partials: Yes Hand Dominance: Left Upper Extremity ROM ~120 degrees active shoulder ROM, Full AAROM Elbows-wrist WNL Hand limited by swelling Upper Extremity Strength bilateral shoulders: 3-/5 Fair outsole paraffiner ADL-Treatment Eating (QC): 4 On/Off Footwear (QC): 3 Toileting Hygiene (QC): 1 (burnham catheter) Supine>sit with extra time and min a to elevate torso. Initial CGA for safety with sitting balance, improves to SBA. Min a to don sock completely over foot, good effort demonstrated. Sit<>stand: hand held/min a. Unsteady when lifting foot off floor (marching in place). Pt able to tolerate standing for ~2-3 minutes before needing to return to sitting. At this time, pt will require assistance with clothing management for LB dressing/toileting tasks due to needing 1-2 UE support to maintain balance. Education OT Patient Education: Correct positioning, Purpose of tx/functional activities, Safety issues, Transfer techniques Teaching Recipient: Patient Teaching Methods: Demonstration, Discussion Response to Teaching: Verbalize Understanding, Return Demonstration, Reinforcement Needed OT Planer Off Bearer Goals Prison Goals Time Frame: Feb 27, 2022 Eating (QC): 6 Oral Hygiene (QC): 5 Toileting Hygiene (QC): 5 Shower/Bathe Self (QC): 4 Upper Body Dressing (QC): 5 Lower Body Dressing (QC): 5 On/Off Footwear (QC): 5 Additional Goals: 1-Demonstrate ADL Tasks, 2-Verbalize Understanding, 3- ImproveStrength/Lou 1=Demonstrate adherence to instructed precautions during ADL tasks. 2=Patient will verbalize/demonstrate understanding of assistive devices/modifications for ADL. 3=Patient will improve strength/tolerance for activity to enable patient to perform ADL's. OT Education/Plan Problem List/Assessment Assessment: Decreased Activ Tolerance, Decreased UE Strength, Edema, Impaired Bed Mobility, Impaired Cognition, Impaired Funct Balance, Impaired I ADL's, Impaired Self-Care Skills, Restricted Funct UE ROM Discharge Recommendations Plan/Recommendations: Continue POC Therapy Discharge Recommendati: Post Acute OT Treatment Plan/Plan of Care Treatment,Training & Education: Yes Patient would benefit from OT for education, treatment and training to promote independence in ADL's, mobility, safety and/or upper extremity function for ADL's. Plan of Care: ADL Retraining, Cognitive Retraining, Functional Mobility, Group Exercise/Act as Ind, UE Funct Exercise/Act Treatment Duration: Feb 27, 2022 Frequency: 3 times per week (3-5x/week ) Estimated Hrs Per Day: .25 hour per day Rehab Potential: Fair Time Start Time: 10:49 Stop Time: 11:07 DATE: Feb 19, 2022 Total Time Billed (hr/min): 18 Billed Treatment Time 1 visit Elva Blood OT Feb 19, 2022 11:47
[2022-02-19] MEDS ORDERED: ENALAPRILAT 2.5 MG/2 ML (VASOTEC) VIAL IV PRN (12:00)
--- NOTE | 2022-02-19 12:04 | ST Dysphagia Evaluation ---
Speech Evaluation-General Medical Diagnosis Flu A; Acute Exacerbation of COPD with Respiratory Distress Onset Date: Feb 13, 2022 Therapy Diagnosis Therapy Diagnosis: Mild Oral Dysphagia Precautions Precautions: Fall, Pressure Ulcer, Aspiration Precautions/Isolations: Aspiration, Fall Prevention, Standard Precautions, Pressure Ulcer Referral Referring Physician: Dr. Adriana Montoya Reason for Referral: Evaluation/Treatment Medical History Pertinent Medical History: CABG, CAD, COPD, GERD, HTN, Smoking Current History The patient is a 76 year-old female with a past medical history of CAD, CABG (2011), COPD, and HTN, who presented to the [facility] [place] ED with progressive SOA, productive cough, subjective fever and chills, sore throat, head ache, nausea, and one episode of emesis this morning. The patient was diagnosed with Flu A and COPD exacerbation. Reviewed History: Yes Social History Current Living Status: Spouse Speech PLF/Current-Dysphagia Prior Level of Function The patient was unable to provide specifics regarding her prior level of function, however, stated, "I like tea and just about anything." Subjective The patient was seated upright in her bed, awake, upon entrance to her room by the clinician. The patient greeted the clinician appropriately and was agreeable to participation in the clinical bedside swallowing evaluation. At this time, the patient is N.P.O. Per RN, the patient tolerate sips and drinks of thin liquids throughout the evening. The patient was on 3L supplemental oxygen via nasal cannula with SpO2% at 96% prior to P.O. trials. Cognitive Status Patient Orientation: Person Oral Motor Skills Dentition: Edentalous Ability to Follow Directions: Fair Oral Expression Ability: Moderate Impairment Voice Voice Phonatory-Based Quality: Breathy, Weak Voice Pitch: Normal Voice Loudness: Moderately Soft/Quiet Face Facial Symmetry: Symmetrical Oral-Facial Assessment Oral-Facial Dentition: Normal Labial Seal Description: Weak Smile: Normal Puff Cheeks: Reduced Strength Lingual Protrusion: Normal Lingual ROM: Normal Lingual Strength: Abnormal Volitional Dry Swallow: Yes Voluntary Cough: Yes Can Clear Throat Volitionally: Yes Dysphagia Evaluation Consistencies Presented: Thin Liquid, Pureed The patient was able to draw material appropriately from the teaspoon and straw. Anterior bolus loss was not appreciated with any consistency tested. Slightly prolonged oral and lingual manipulation was present with the puree prior to appropriate bolus formation. The patient does not display pharyngeal impairments to the swallowing function. Laryngeal elevation was present to palpation. The patient was presented with ice chips, teaspoons of thin liquid, straw drinks of thin liquid and puree. Overt s/s of suspected aspiration were not demonstrated with any consistency tested. The patient's vocal quality remained clear following each swallow and her SpO2% remained stable at 96%. Dietary Recommendations: Pureed Liquid Recommendations: Thin Recommendations: - PU4 with thin liquids, as tolerated. - Fully upright and alert for P.O. intake. - Feeding assistance at this time due to upper extremity weakness and decreased coordination. - Crush medication and place in puree for administration. - Monitor for s/s of suspected aspiration with P.O. intake. If demonstrated, contact speech pathology. Speech pathology provided the recommendations to the patient and the patient's RN immediately following completion. Dysphagia Evaluation Summary The patient demonstrated mild oral dysphagia secondary to decreased lingual and oral manipulation. Overt s/s of suspected aspiration were not demonstrated with thin liquids or puree consistencies provided. Speech Short Term Goals Short Term Goals Short Term Goals 1. The patient will demonstrate safe swallowing strategies with 80% accuracy and mild clinician verbal cueing. Time Frame-STG: Three Days. Speech Fci Goals Fci Goals 1. The patient will tolerate the least restrictive diet without s/s of suspected aspiration. Time Frame: Five Days. Speech-Plan Treatment Plan Speech Therapy Treatment Plan: Continue Plan of Care Treatment Duration: Feb 24, 2022 Frequency: 2 times per week Estimated Hrs Per Day: .25 hour per day Rehab Potential: Fair Safety Risks/Education Teaching Recipient: Patient Teaching Methods: Discussion Response to Teaching: Reinforcement Needed Education Topics Provided: Results, Recommendations, Safe Swallowing Strategies Time Speech Therapy Time In: 10:30 Speech Therapy Time Out: 10:40 DATE: Feb 19, 2022 Total Billed Time: 10 Billed Treatment Time [id number] ST Feb 19, 2022 12:04
--- NOTE | 2022-02-19 12:17 | ST Cognitive Linguistic Eval ---
Speech Evaluation-General Medical Diagnosis Flu A; Acute Exacerbation of COPD with Respiratory Distress Onset Date: Feb 13, 2022 Therapy Diagnosis Therapy Diagnosis: Intact Expressive and Receptive Language Precautions Precautions: Fall, Pressure Ulcer, Aspiration Precautions/Isolations: Aspiration, Fall Prevention, Standard Precautions, Pressure Ulcer Referral Referring Physician: Dr. Tuttle Reason for Referral: Evaluation/Treatment Medical History Pertinent Medical History: CABG, CAD, COPD, GERD, HTN, Smoking Current History The patient is a 76 year-old female with a past medical history of CAD, CABG (2011), COPD, and HTN, who presented to the [facility] ED with progressive SOA, productive cough, subjective fever and chills, sore throat, head ache, nausea, and one episode of emesis this morning. The patient was diagnosed with Flu A and COPD exacerbation. Reviewed History: Yes Social History Current Living Status: Spouse Speech PLF-Current Status Prior Level of Function The patient was unable to provide prior medical history regarding her speech, language, or cognition. The patient does appear fatigued, however, continues with full participation. Subjective The patient was seated upright in her bed, awake, upon entrance to her room by the clinician. The patient greeted the clinician appropriately and was agreeable to participation in the cognitive linguistic assessment. Language Eval: Auditory Comprehends Simple Yes/No Ques: Functional Indent/Objects Multiple Mendez: Functional Follows 1-Step Commands: Functional Follows General Conversations: Functional (With repetition for increased accuracy.) Language Eval: Verbal Language Completes Spontaneous Greeting: Functional Produces Auto, Serial Info: Functional Imitates Simple Words/Phrases: Functional Word Finding: Mild Requests Basic Needs: Functional States Basic Personal Info: Functional Cognitive Patient Orientation The patient was oriented to self, month, and location (hospital). Objective Cognitive Domain The patient's cognitive evaluation will be completed following increased periods of alertness and decreased fatigue. Objective Oral Motor/Speech Production The patient does not display dysarthria or apraxia of speech. The patient is 100% intelligible in known and unknown contexts. Impression The patient does not display an expressive or receptive language deficit. The patient follows simple, one-step commands and is able to express her wants and needs appropriately. Full cognitive evaluation will occur following periods of increased alertness and decreased fatigue. Speech Short Term Goals Short Term Goals Short Term Goals 1. The patient will demonstrate safe swallowing strategies with 80% accuracy and mild clinician verbal cueing. 2. The patient will complete the cognitive portion of the skilled speech pathology evaluation. Time Frame-STG: Three Days. Speech Residential Goals Sociology Teacher Goals 1. The patient will tolerate the least restrictive diet without s/s of suspected aspiration. 2. The patient will demonstrate improved cognitive linguistic skills for safe discharge to the least restrictive environment. Time Frame: Five Days. Speech-Plan Treatment Plan Speech Therapy Treatment Plan: Continue Plan of Care Treatment Duration: Feb 24, 2022 Frequency: 2 times per week Estimated Hrs Per Day: .25 hour per day Rehab Potential: Fair Safety Risks/Education Teaching Recipient: Patient Teaching Methods: Discussion Response to Teaching: Reinforcement Needed Education Topics Provided: Results, Recommendations, Plan of Care Time Speech Therapy Time In: 10:40 Speech Therapy Time Out: 10:50 DATE: Feb 19, 2022 Total Billed Time: 10 Billed Treatment Time 1, TAI KOO Feb 19, 2022 12:17
--- NOTE | 2022-02-19 12:22 | ST Cognitive Linguistic Eval ---
Speech Evaluation-General Medical Diagnosis Flu A; Acute Exacerbation of COPD with Respiratory Distress Onset Date: Feb 13, 2022 Therapy Diagnosis Therapy Diagnosis: Expressive and Receptive Language Intact Precautions Precautions: Fall, Pressure Ulcer, Aspiration Precautions/Isolations: Aspiration, Fall Prevention, Standard Precautions, Pressure Ulcer Referral Referring Physician: Dr. Tuttle Medical History Pertinent Medical History: CABG, CAD, COPD, GERD, HTN, Smoking Current History The patient is a 76 year-old female with a past medical history of CAD, CABG (2011), COPD, and HTN, who presented to the [facility] ED with progressive SOA, productive cough, subjective fever and chills, sore throat, head ache, nausea, and one episode of emesis this morning. The patient was diagnosed with Flu A and COPD exacerbation. Reviewed History: Yes Social History Current Living Status: Spouse Speech PLF-Current Status Prior Level of Function The patient was unable to provide prior medical history regarding her speech, language, or cognition. The patient does appear fatigued, however, continues with full participation. Subjective The patient was seated upright in her bed, awake, upon entrance to her room by the clinician. The patient greeted the clinician appropriately and was agreeable to participation in the cognitive linguistic assessment. Language Eval: Auditory Comprehends Simple Yes/No Ques: Functional Indent/Objects Multiple Mendez: Functional Follows 1-Step Commands: Functional Follows General Conversations: Functional Language Eval: Verbal Language Completes Spontaneous Greeting: Functional Produces Auto, Serial Info: Functional Imitates Simple Words/Phrases: Functional Word Finding: Functional Requests Basic Needs: Functional Cognitive Patient Orientation The patient was independently oriented to self, location (hospital), and month. Objective Cognitive Domain The patient's cognitive evaluation will be completed following increased periods of alertness and decreased fatigue. Objective Oral Motor/Speech Production The patient does not display dysarthria or apraxia of speech. The patient is 100% intelligible in known and unknown contexts. Impression The patient does not display an expressive or receptive language deficit. The patient follows simple, one-step commands and is able to express her wants and needs appropriately. Full cognitive evaluation will occur following periods of increased alertness and decreased fatigue. Speech Short Term Goals Short Term Goals Short Term Goals 1. The patient will demonstrate safe swallowing strategies with 80% accuracy and mild clinician verbal cueing. 2. The patient will complete the cognitive portion of the skilled speech pathology evaluation. Time Frame-STG: Three Days. Speech Lime Mixer Tender Goals Lime Mixer Tender Goals 1. The patient will tolerate the least restrictive diet without s/s of suspected aspiration. 2. The patient will demonstrate improved cognitive linguistic skills for safe discharge to the least restrictive environment. Time Frame: Five Days. Speech-Plan Treatment Plan Speech Therapy Treatment Plan: Continue Plan of Care Treatment Duration: Feb 24, 2022 Frequency: 2 times per week Estimated Hrs Per Day: .25 hour per day Rehab Potential: Fair Safety Risks/Education Teaching Recipient: Patient Teaching Methods: Discussion Response to Teaching: Reinforcement Needed Education Topics Provided: Results, Recommendations, Plan of Care Time Speech Therapy Time In: 10:40 Speech Therapy Time Out: 10:50 DATE: Feb 19, 2022 Total Billed Time: 10 Billed Treatment Time 1, TIA KOO Feb 19, 2022 12:22
[2022-02-19] MEDS ORDERED: LABETALOL HCL 20 MG/4 ML VIAL IV NR (15:15)
[2022-02-19] MEDS: ENOXAPARIN 40 MG/0.4 ML (LOVENOX) SYR SC SCH (15:33)
[2022-02-19] MEDS ORDERED: cloNIDine 0.1 MG (CATAPRES) TAB PO NR (17:15)
[2022-02-19] MEDS: niCARdipine IV (Pyxis drip kit 50 MG in NS (IVPB) 230 ML IV SCH (19:37)
[2022-02-19] MEDS: cloNIDine 0.1 MG (CATAPRES) TAB PO SCH (21:23)
[2022-02-19 23:11] VITALS: BP 168/80
[2022-02-19] MEDS: MELATONIN 3 MG TABLET PO PRN (23:34)
[2022-02-20 02:13] VITALS: BP 156/77
[2022-02-20] MEDS: RT-ALBUTEROL/IPRATROPIUM 3 ML (DUONEB) VIAL IH SCH ×3 (02:13→09:27)
[2022-02-20] MEDS: niCARdipine IV (Pyxis drip kit 50 MG in NS (IVPB) 230 ML IV SCH (05:51)
[2022-02-20] MEDS: POTASSIUM CL 10MEQ/50ML IVPB 50 ML IV SCH (06:00)
[2022-02-20] MEDS: KCL 20 MEQ TAB (K-DUR) PO SCH ×3 (06:00→11:52)
[2022-02-20] MEDS: inSUlin ASPART (NovoLOG) 1 UNIT/0.01 ML (CHARGE PER UNIT) SQ SCH ×3 (06:00→11:52)
[2022-02-20] MEDS: MAGNESIUM 1 GM/100 ML IVPB 100 ML IV SCH ×3 (06:00→11:51)
[2022-02-20 06:26] LABS: HEMATOCRIT 44 % (35-52); HEMOGLOBIN 14.3 g/dL (11.5-16.0); MEAN CORPUSCULAR HEMOGLOBIN 30 pg (25-34); MEAN CORPUSCULAR HGB CONC 33 g/dL (32-36); MEAN CORPUSCULAR VOLUME 90 fL (80-99); MEAN PLATELET VOLUME 10.7 fL (9.0-12.2); PLATELET COUNT 234 10^3/uL (130-400); WHITE BLOOD COUNT 12.8 10^3/uL (4.3-11.0)
[2022-02-20 06:42] LABS: POTASSIUM 3.1 MMOL/L (3.6-5.0)
[2022-02-20 06:43] LABS: CALCIUM 10.9 MG/DL (8.5-10.1)
[2022-02-20 06:47] LABS: CREATININE SERUM 0.63 MG/DL (0.60-1.30)
[2022-02-20 06:50] LABS: MAGNESIUM 1.5 MG/DL (1.6-2.4)
[2022-02-20] MEDS ORDERED: predniSONE 20 MG TAB PO SCH (07:00)
[2022-02-20] MEDS: cloNIDine 0.1 MG (CATAPRES) TAB PO SCH (08:37)
[2022-02-20] MEDS: lisINopril 20 MG (PRINIVIL) TABLET PO SCH (08:37)
[2022-02-20] MEDS: toPIRamate 25 MG (TOPAMAX) TAB PO SCH (08:37)
[2022-02-20] MEDS: NICOTINE PATCH REMOVAL TP SCH (08:38)
[2022-02-20] MEDS: ALPRAZolam 0.5 MG (XANAX) TAB PO PRN (08:38)
[2022-02-20] MEDS: PANTOPRAZOLE 40 MG (PROTONIX) VIAL IV SCH (08:38)
[2022-02-20] MEDS: NICOTINE 21 MG (NICODERM) PATCH TD SCH (08:38)
[2022-02-20 08:46] VITALS: BP 149/95
[2022-02-20] MEDS ORDERED: SPIRONOLACTONE 25 MG (ALDACTONE) TAB PO SCH (09:00)
--- NOTE | 2022-02-20 10:11 | Progress Note - Hospitalist ---
Subjective HPI/CC On Admission Date Seen by Provider: Feb 20, 2022 Time Seen by Provider: 09:05 Subjective/Events-last exam She is feeling well. She is eating breakfast. She has no complaints. Objective Exam Vital Signs Vital Signs Date Time Temp Pulse Resp B/P (MAP) Pulse Ox O2 Delivery O2 Flow Rate FiO2 02/20/22 10:00 71 17 103/55 (71) 94 Nasal Cannula 2.00 02/20/22 08:46 36.1 28 Capillary Refill : General Appearance: No Apparent Distress, WD/WN Respiratory: No Respiratory Distress, Decreased Breath Sounds Cardiovascular: Regular Rate, Rhythm, No Murmur Gastrointestinal: Normal Bowel Sounds, Soft Extremity: Normal Inspection, No Pedal Edema Neurologic/Psychiatric: Alert, Motor Weakness Skin: Normal Color, Warm/Dry Results/Procedures Lab Laboratory Tests 02/20/22 06:11 Patient resulted labs reviewed. Imaging: Reviewed Imaging Report Assessment/Plan Assessment and Plan Assess & Plan/Chief Complaint Acute on chronic respiratory failure with hypoxia and hypercapnia COPD exacerbation Influenza A Trial off BiPAP Steroids MAT protocol Outside window for Tamiflu TeleICU following Anxiety Off Precedex Continue Xanax Debility PT/OT IRU evaluation UTI Urine culture with E coli Last dose of Rocephin today HTN Continue home meds Hypomagnesemia Monitor and replace as needed Delirium Resolved DVT prophylaxis: Lovenox Diagnosis/Problems Diagnosis/Problems (1) Acute respiratory failure with hypoxia and hypercapnia Status: Acute (2) Acute exacerbation of chronic obstructive pulmonary disease (COPD) Status: Acute (3) Influenza A Status: Acute (4) UTI (urinary tract infection) Status: Acute (5) Leukocytosis Status: Resolved Resolution Date/Time: 02/18/22 @ 14:07 (6) HTN (hypertension) Status: Chronic (7) Hypomagnesemia Status: Chronic SARAHI PLAZA MD Feb 20, 2022 10:11
--- NOTE | 2022-02-20 10:26 | Tele-ICU Progress Note ---
Subjective Date Seen by a Provider: Feb 20, 2022 Time Seen by a Provider: 10:25 Subjective/Events-last exam (Tele-ICU Physician , Progress Note ) Service provided via interactive audio and video telecommunications E-CARE system to a patient admitted to ICU bed in [facility]. Available chart/ vitals / labs / Images reviewed Video assessment done using teleICU camera, rest of exam as per RN Discussed with RN Events overnight : Afebrile hemodynamically stable Respiratory - 3L I/O = POS 1.4L Drips: off Pressors- no Consultants: Hospital course: (02/12) 76F admittted with COPD exac d/t influenza A, hypercarbic, on Bipap (02/15) transferred to ICU from the floor due to low oxygen saturations. Bipap o2 increased. 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 ethiology , as per PCP Nutritions -starting po - toadvace replace lytes Lines : periph , (Central Line Necessity Reviewed) Taylor: + OG: Nutrition: npo Analgesia: Anxiety/ delirium VTE Prophylaxis: diana 40 Stress Ulcer Prophylaxis: NA Plans in collaboration with bedside consultants and IM MDs. Discussed with RN to reach out if any questions or concerns A total of 31 minutes of critical care time was devoted to this patient today, required to treat and/or prevent further deterioration of critical care condition ( as above ) . I am remotely monitoring this patient from another state. I am unable to do the bedside exam, and history/physical and pertinent information is taken from other notes in the computer and bedside staff. . Sepsis Event Evaluation Height, Weight, BMI Height: 4'11.00" Weight: 151lbs. 14.8oz. 68.737303lo; 23.65 BMI Method:Stated Exam Exam Patient acknowledged, consented, and participated in this virtual visit which was conducted using real time audio/video Vital Signs Date Time Temp Pulse Resp B/P (MAP) Pulse Ox O2 Delivery O2 Flow Rate FiO2 02/20/22 10:00 71 17 103/55 (71) 94 Nasal Cannula 2.00 02/20/22 09:29 95 High Flow N/C 2.00 02/20/22 09:00 92 131/59 (83) 94 Nasal Cannula 2.00 02/20/22 08:46 36.1 86 92 28 02/20/22 08:00 92 149/95 (113) 93 Nasal Cannula 2.00 02/20/22 07:42 36.1 02/20/22 07:00 88 02/20/22 07:00 87 167/82 (110) 92 Nasal Cannula 2.00 02/20/22 06:22 92 High Flow N/C 2.00 02/20/22 06:00 84 164/81 (108) 94 Nasal Cannula 3.00 02/20/22 05:51 87 171/95 02/20/22 05:00 85 160/90 (113) 94 Nasal Cannula 3.00 02/20/22 04:00 79 145/75 (98) 94 Nasal Cannula 3.00 02/20/22 04:00 93 NIV Bilevel 25 02/20/22 03:00 79 152/74 (100) 94 Nasal Cannula 3.00 02/20/22 02:13 78 18 93 25.00 02/20/22 02:00 75 145/72 (96) 94 Nasal Cannula 3.00 02/20/22 01:00 80 02/20/22 01:00 79 152/73 (99) 94 Nasal Cannula 3.00 02/20/22 00:00 78 152/74 (100) 92 Nasal Cannula 3.00 02/19/22 23:59 93 NIV Bilevel 25 02/19/22 23:11 80 18 90 25.00 02/19/22 23:01 91 High Flow N/C 2.00 02/19/22 23:00 83 142/69 (93) 92 Nasal Cannula 3.00 02/19/22 22:00 90 162/77 (105) 93 Nasal Cannula 3.00 02/19/22 21:00 99 176/83 (114) 90 Nasal Cannula 3.00 02/19/22 20:00 94 Nasal Cannula 1.00 02/19/22 20:00 36.3 02/19/22 20:00 90 164/70 (101) 90 Nasal Cannula 3.00 02/19/22 19:37 93 213/101 02/19/22 19:07 94 High Flow N/C 1.00 02/19/22 19:00 96 170/73 (105) 94 Nasal Cannula 3.00 02/19/22 19:00 100 02/19/22 18:00 93 231/105 (147) 94 Nasal Cannula 3.00 02/19/22 17:00 88 188/127 (147) 93 Nasal Cannula 3.00 02/19/22 16:08 96 Nasal Cannula 1.00 02/19/22 16:00 76 203/85 (124) 94 Nasal Cannula 3.00 02/19/22 16:00 36.8 02/19/22 15:00 79 196/85 (122) 93 Nasal Cannula 3.00 02/19/22 14:45 96 High Flow N/C 1.00 02/19/22 14:00 87 191/82 (118) 96 Nasal Cannula 3.00 02/19/22 13:00 85 02/19/22 13:00 90 24 188/82 (117) 97 Nasal Cannula 3.00 02/19/22 12:03 87 191/82 02/19/22 12:00 76 186/70 (108) 97 Nasal Cannula 3.00 02/19/22 12:00 96 Nasal Cannula 3.00 02/19/22 11:40 36.3 02/19/22 11:24 96 High Flow N/C 3.00 02/19/22 11:00 99 24 183/71 (108) 92 Nasal Cannula 3.00 I & O 02/20/22 07:00 Intake Total 2250 ml Output Total 3625 ml Balance -1375 ml Height & Weight Height: 4'11.00" Weight: 151lbs. 14.8oz. [id number]; 23.65 BMI Method:Stated General Appearance: No Apparent Distress, WD/WN HEENT: PERRL/EOMI, Other (unable to visualize pharnyx) Respiratory: No Respiratory Distress, Decreased Breath Sounds Cardiovascular: Regular Rate, Rhythm, No Murmur Gastrointestinal: non tender, soft Extremity: Normal Inspection, No Pedal Edema Neurologic/Psychiatric: Alert, Motor Weakness Skin: Normal Color, Warm/Dry Results Lab Laboratory Tests 02/19/22 05:24 02/20/22 06:11 Assessment/Plan Assessment/Plan 1 TASIA PADILLA MD Feb 20, 2022 10:26
--- NOTE | 2022-02-20 10:35 | Physical Therapy Daily Note ---
PT Daily Note-Current Subjective Patient in bed pre tx, agrees to PT, has unrated pain in her legs and her bottom. Pain Section J - Health Conditions 1. Rarely or not at all 2. Occasionally 3. Frequently 4. Almost constantly 8. Unable to answer Pain Effect on Sleep: 2 Pain Interference with Therapy: 2 Pain Interference w/Day-to-Day: 2 Appearance Patient in recliner post tx with nurse call, phone, tray, all needs met. Mental Status Patient Orientation: Person, Place, Situation Attachments: Oxygen, Taylor Catheter, IV Transfers SCALE: Activities may be completed with or without assistive devices. 8-Jeceuzjaar-dahqvmu completes the activity by him/herself with no assistance from a helper. 5-Set-up or Clean-up Assistance-helper sets up or cleans up; patient completes activity. [place] assists only prior to or following the activity. 4-Supervision or Touching Assistance-helper provides verbal cues and/or to uching/steadying and/or contact guard assistance as patient completes activity. Assistance may be provided throughout the activity or intermittently. 3-Partial/Moderate Assistance-helper does LESS THAN HALF the effort. [place] lifts, holds or supports trunk or limbs, but provides less than half the effort. 2-Substantial/Maximal Assistance-helper does MORE THAN HALF the effort. [place] lifts or holds trunk or limbs and provides more than half the effort. 5-Sdumkcovz-faialj does ALL the effort. Patient does none of the effort to complete the activity. Or, the assistance of 2 or more helpers is required for the patient to complete the activity. If activity was not attempted, code reason: 7-Patient Refused. 9-Not Applicable-not attempted and the patient did not perform the activity before the current illness, exacerbation or injury. 10-Not Attempted due to Environmental Limitations-(lack of equipment, weather restraints, etc.). 88-Not Attempted due to Medical Conditions or Safety Concerns. Roll Left & Right (QC): 4 Lying to Sitting/Side of Bed(Q: 4 Sit to Stand (QC): 4 Chair/Uou-ab-Warbo Xfer(QC): 4 needs steadying assist during transfer, very shaky and unsteady Weight Bearing Full Weight Bearing Full Weight Bearing Gait Training Distance: 5' Gait Persons Needed: 1 Gait Assistive Device: FWW slow, unsteady, was barely able to ambulate 5' to the recliner Exercises Seated Therapy Exercises: Ankle pumps, Long arc quads Seated Reps: 20 Treatments bed mobility, transfers, ambulation, LE ROM Assessment Current Status: Fair Progress slightly improved functional mobility PT Short Term Goals Short Term Goals Time Frame: Feb 20, 2022 Roll Left & Right: 5 Sit to lyin Lying to sitting on side of be: 5 Sit to stand: 5 Chair/oto-zt-zaizx transfer: 5 Walk 10 feet: 4 Walk 50 feet with two turns: 4 PT Global Sourcing Manager Goals Skilled Nursing Goals PT Skilled Nursing Goals Time Frame: Feb 27, 2022 Roll Left & Right (QC): 6 Sit to Lying (QC): 6 Lying-Sitting on Side/Bed(QC): 6 Sit to Stand (QC): 6 Chair/Sjs-qf-Mlkpv Xfer(QC): 6 Toilet Transfer (QC): 6 Car Transfer (QC): 6 Does the Patient Walk: Yes Walk 10 feet (QC): 6 Walk 50ft with 2 Turns (QC): 6 Walk 150 ft (QC): 6 Walking 10ft on Uneven Surface: 6 1 Step (curb) (QC): 6 4 Steps (QC): 6 12 Steps (QC): 6 Picking up an Object (QC): 6 PT Plan Problem List Problem List: Activity Tolerance, Functional Strength, Safety, Balance, Gait, Transfer, Bed Mobility, ROM Treatment/Plan Treatment Plan: Continue Plan of Care Treatment Plan: Bed Mobility, Functional Activity Lou, Functional Strength, Gait, Safety, Therapeutic Exercise, Transfers Treatment Duration: Feb 27, 2022 Frequency: 11 times per week Estimated Hrs Per Day: .5 hour per day Patient and/or Family Agrees t: Yes Safety Risks/Education Patient Education: Gait Training, Transfer Techniques, Correct Positioning, Safety Issues Teaching Recipient: Patient Teaching Methods: Demonstration, Discussion Response to Teaching: Reinforcement Needed Time Time In: 0956 Time Out: 1009 DATE: Feb 20, 2022 Total Billed Treatment Time: 13 Total Billed Treatment 1 visit FA 13' STEFFANIE ANGLIN PT Feb 20, 2022 10:35
--- NOTE | 2022-02-20 13:31 | Occupational Ther Daily Note ---
OT Current Status-Daily Note Subjective Pt alert, sitting in recliner. Pt agrees to therapy. Pt fatigues quickly and only able to complete 1 set of B UE's. Mental Status/Objective Patient Orientation: Person, Place, Time, Situation Attachments: Taylor Catheter, IV, Oxygen, Telemetry ADL-Treatment Therapy Code Descriptions/Definitions Functional [place] Measure: 0=Not Assessed/NA 4=Minimal Assistance 1=Total Assistance 5=Supervision or Setup 2=Maximal Assistance 6=Modified [place] 3=Moderate Assistance 7=Complete IndependenceSCALE: Activities may be completed with or without assistive devices. 7-Rsellbxnsb-atikyek completes the activity by him/herself with no assistance from a helper. 5-Set-up or Clean-up Assistance-helper sets up or cleans up; patient completes activity. [place] assists only prior to or following the activity. 4-Supervision or Touching Assistance-helper provides verbal cues and/or touching/steadying and/or contact guard assistance as patient completes activity. Assistance may be provided throughout the activity or intermittently. 3-Partial/Moderate Assistance-helper does LESS THAN HALF the effort. [place] lifts, holds or supports trunk or limbs, but provides less than half the effort. 2-Substantial/Maximal Assistance-helper does MORE THAN HALF the effort. [place] lifts or holds trunk or limbs and provides more than half the effort. 4-Pdhiaayol-eupazy does ALL the effort. Patient does none of the effort to complete the activity. Or, the assistance of 2 or more helpers is required for the patient to complete the activity. If activity was not attempted, code reason: 7-Patient Refused. 9-Not Applicable-not attempted and the patient did not perform the activity before the current illness, exacerbation or injury. 10-Not Attempted due to Environmental Limitations-(lack of equipment, weather restraints, etc.). 88-Not Attempted due to Medical Conditions or Safety Concerns. Other Treatment Pt completed 5 B UE exercises to increase strength, AROM and decrease edema of hands. Skilled instruction to complete exercises with correct technique. Pt able to complete 1 set 10 reps of each with recovery breaks between each set. Pt had difficulty with completing full AROM without verbal cues to do so. After therapy, pt sitting in recliner with call light/phone in reach. All needs met in room. OT Alf Goals Reinforcing Metal Worker Goals Time Frame: Feb 27, 2022 Eating (QC): 6 Oral Hygiene (QC): 5 Toileting Hygiene (QC): 5 Shower/Bathe Self (QC): 4 Upper Body Dressing (QC): 5 Lower Body Dressing (QC): 5 On/Off Footwear (QC): 5 Additional Goals: 1-Demonstrate ADL Tasks, 2-Verbalize Understanding, 3- ImproveStrength/Lou 1=Demonstrate adherence to instructed precautions during ADL tasks. 2=Patient will verbalize/demonstrate understanding of assistive devices/modifications for ADL. 3=Patient will improve strength/tolerance for activity to enable patient to perform ADL's. OT Education/Plan Problem List/Assessment Assessment: Decreased Activ Tolerance, Decreased UE Strength, Edema (B hands), Impaired Self-Care Skills, Restricted Funct UE ROM Discharge Recommendations Plan/Recommendations: Continue POC Treatment Plan/Plan of Care Patient would benefit from OT for education, treatment and training to promote independence in ADL's, mobility, safety and/or upper extremity function for ADL's. Plan of Care: ADL Retraining, Cognitive Retraining, Functional Mobility, Group Exercise/Act as Ind, UE Funct Exercise/Act Treatment Duration: Feb 27, 2022 Frequency: 3 times per week (3-5x/week ) Estimated Hrs Per Day: .25 hour per day Rehab Potential: Fair Time Start Time: 10:30 Stop Time: 10:38 DATE: Feb 20, 2022 Total Time Billed (hr/min): 8 Billed Treatment Time 1 visit-EX 1 (8 min) ANA CONTRERAS Feb 20, 2022 13:31
== END 2022-02-20 13:30 | DRG 193 ==
LOC: EDUNIT# 11:54 → ER 11:56 → ICU 13:26 → 4TH 02-13 14:46 → ICU 02-15 11:34
PROVIDERS: ADMIT Family Medicine; ATTEND Internal Medicine
PROC: 5A09457 Assistance with Respiratory Ventilation, 24-96 Consecutive Hours, Continuous Positive Airway Pressure (ICD-10-PCS; principal; 2022-02-15)
DX: J10.1 Influenza due to other identified influenza virus with other respiratory manifestations (principal); J96.21 Acute and chronic respiratory failure with hypoxia; J96.22 Acute and chronic respiratory failure with hypercapnia; J44.1 Chronic obstructive pulmonary disease with (acute) exacerbation; N39.0 Urinary tract infection, site not specified; E87.1 Hypo-osmolality and hyponatremia; E87.29 Other acidosis; F41.9 Anxiety disorder, unspecified; I10 Essential (primary) hypertension; Z20.822 Contact with and (suspected) exposure to COVID-19; B96.20 Unspecified Escherichia coli [E. coli] as the cause of diseases classified elsewhere; E87.5 Hyperkalemia; E83.52 Hypercalcemia; Z79.82 Long term (current) use of aspirin; Z79.899 Other long term (current) drug therapy; F17.210 Nicotine dependence, cigarettes, uncomplicated; I25.10 Atherosclerotic heart disease of native coronary artery without angina pectoris; Z95.1 Presence of aortocoronary bypass graft; E83.42 Hypomagnesemia; E78.5 Hyperlipidemia, unspecified; D72.829 Elevated white blood cell count, unspecified; T38.0X5A Adverse effect of glucocorticoids and synthetic analogues, initial encounter; Z66 Do not resuscitate
CPT/HCPCS: 36410; 36415; 36600; 71045; 76937; 80048; 80053; 80061; 80320; 81000; 82805; 82947; 83605; 83735; 83874; 83880; 84100; 84145; 84484; 85007; 85027; 85610; 85730; 87040; 87077; 87088; 87186; 87636; 93005; 93041; 94640; 94660; 94664; 94760; 94761; 96374

== ENCOUNTER 2022-02-20 11:18 | Inpatient (IN) | payer MEDICARE, OTHER ==
[~2022-02-20] VITALS: Ht 165 cm; Wt 63.4 kg
[~2022-02-20 11:18] MED LIST changes: +CARV6.252 PO; +CHOL-34 PO; +LISI40TA9 PO; +MELO15TA39 PO
--- NOTE | 2022-02-20 11:58 | PM&R Post Admission Assessment ---
PM&R HP Date of Visit: Feb 20, 2022 Time of Visit: 14:00 History of Present Illness Chief complaint: Acute on chronic respiratory failure HPI: This is a 76-year-old female clinic patient of Dr. López in [place] who has a past medical history of COPD maintained on oxygen at night and currently smoking. She required an extensive ICU stay with BiPAP due to UTI and influenza A. She appears to have dementia with slow responses and at the bedside fills in the details. Prior level of functioning is use of assistive devices with supplementing. Acute care HPI: Ms. Mobley is a 76 year old female with PMHx of CAD, CABG in 2011, COPD, and HTN who presents to the [facility] ED with progressive SOA, productive cough, subjective fever and chills, sore throat, head ache, nausea, and one episode of emesis this morning. Patient reports her symptoms began approximately 1 week ago. Patient states she usually wears 3.5 L of supplemental O2 at night but has been requiring O2 during the day throughout the past week. Patient states this morning she removed her O2 to smoke a cigarette and became increasingly SOB. Patient states she used her inhaler this morning around 10:00 that slightly improved her symptoms. Patient states she currently feels dizzy and groggy. Patient denies chest pain at this time. While at rest patient denies SOA. Patient has been admitted to Hospitalist service to receive BiPap therapy and for medical management. Patient is agreeable to admission. Date of Admission 02/12/2022 Past Ayzefxg-Rxzxmu-Qmhfth Hx Past Med/Social Hx: Reviewed Nursing Past Med/Soc Hx, Reviewed and Corrections made Patient Social History Marrital Status: Employed/Student: retired Alcohol Use: Denies Use Smoking Status: Current Everyday Smoker Immunizations Up To Date Tetanus Booster (TDap): More than 5yrs Date of Pneumonia Vaccine: Jan 29, 2014 Date of Influenza Vaccine: Feb 05, 2015 Past Medical History Surgeries: CABG, Hysterectomy Respiratory: COPD, Pneumonia Currently Using CPAP: No Currently Using BIPAP: No Cardiac: Hypertension Reproductive: No Sexually Transmitted Disease: No HIV/AIDS: No Hysterectomy Genitourinary: Bladder Infection, UTI-Chronic Gastrointestinal: Gastroesophageal Reflux Psychosocial: Sleep Difficulties, Anxiety, Suicide Attempts, Depression Adverse Reaction to Blood Gu: No Family History Patient reports no known family medical history. 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 PM&R Allergy/Meds/Data Review Allergies Coded Allergies: Sulfa (Sulfonamide Antibiotics) (Verified Allergy, Unknown, 02/05/15) amlodipine (Verified Allergy, Unknown, 02/05/15) Home Medications Scheduled Aspirin (Aspirin EC), 81 MG PO DAILY, (Reported) Carvedilol (Carvedilol), 6.25 MG PO DAILY, (Reported) Cholecalciferol (Vitamin D3) (Vitamin D3), 25 MCG PO DAILY, (Reported) Lisinopril (Lisinopril), 40 MG PO DAILY, (Reported) Meloxicam (Meloxicam), 15 MG PO DAILY, (Reported) Spironolactone (Spironolactone), 12.5 MG PO DAILY, (Reported) Scheduled PRN Albuterol Sulfate (Ventolin Hfa), 2 PUFF IH Q4H PRN for SHORTNESS OF BREATH, (Reported) Diazepam (Diazepam), 5 MG PO TID PRN for ANXIETY, (Reported) Current Medications Current Medications Reviewed Review of Systems Constitutional: see HPI, malaise, weakness EENTM: no symptoms reported Respiratory: dyspnea on exertion, short of breath Cardiovascular: no symptoms reported Gastrointestinal: no symptoms reported Musculoskeletal: no symptoms reported Skin: no symptoms reported Psychiatric/Neurological: No Symptoms Reported All Other Systems Reviewed Negative Unless Noted: Yes Physical Exam Physical Exam Vital Signs Capillary Refill : Height, Weight, BMI Height: 4'11.00" Weight: 151lbs. 14.8oz. 68.085026fi; 23.65 BMI Method:Stated General Appearance: WD/WN, Anxious, Chronically ill Eyes: Bilateral Eye Normal Inspection, Bilateral Eye PERRL HEENT: PERRL/EOMI, Normal ENT Inspection, Pharynx Normal Neck: Full Range of Motion, Normal Inspection, Non Tender, Supple, Carotid Bruit Respiratory: Chest Non Tender, No Accessory Muscle Use, No Respiratory Distress, Decreased Breath Sounds Cardiovascular: Regular Rate, Rhythm, No Edema, No Gallop, No JVD, No Murmur, Normal Peripheral Pulses Gastrointestinal: Normal Bowel Sounds, No Organomegaly, No Pulsatile Mass, Non Tender, Soft Back: Normal Inspection, No CVA Tenderness, No Vertebral Tenderness Extremity: Normal Capillary Refill, Normal Inspection, Normal Range of Motion, Non Tender, No Calf Tenderness, No Pedal Edema Neurologic/Psychiatric: Alert, Oriented x3, No Motor/Sensory Deficits, remelt worker II- XII Norm as Tested, Abnormal Gait, Depressed Affect, Motor Weakness (Generalized) Skin: Normal Color, Warm/Dry Lymphatic: No Adenopathy PM&R Medical Assessment & Plan REHAB/MEDICAL ASSESSMENT AND PLAN: REHAB 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 The comorbidities that impact the patients function and/or functional outcome b y: Dementia, end-stage COPD, current smoker, recent critical illness REHAB PLAN: The patient is being admitted to our comprehensive inpatient rehabilitation facility and can tolerate the intensity of service consisting of at least: 180 minutes of therapy a day, 5 out of 7 days a week Rehab treatment will consist of: PT and OT will focus on regaining function with use of assistive devices in order to regain function with independent ADLs in order to return back home with spouse The patient/family has a good understanding of our discharge process and will benefit from an interdisciplinary inpatient rehabilitation program. The patient has potential to make improvement and is in need of at least two of the following multidisciplinary therapies including but not limited to physical, occupational, speech, and prosthetics and orthotics. Additionally the patient will need services from respiratory, nutritional services, wound care, psychology, etc. (Customize this to each patient). Given the patients complex condition and risk of further medical complications, rehabilitation services cannot be safely or effectively provided at a lower level of care such as a [facility] facility. BARRIERS TO DISCHARGE: Severe COPD ESTIMATED LOS: 10 days DISPOSITION: Home with spouse RELEVANT CHANGES SINCE PREADMISSION SCREENING: I have compared the patients medical and functional status at the time of the preadmission screening and there are: No changes PROGNOSIS: Fair to poor REHABILITATION GOALS: 1.PT and OT will focus on regaining function with use of assistive devices in order to regain function with independent ADLs in order to return back home with spouse All the above goals were reviewed with the patient and he/she is in agreement. By signing this document, I acknowledge that I have personally performed a full physical examination on this patient within 24 hours of admission to this inpatient rehabilitation facility and have determined the patient to be able to tolerate the above course of treatment at an intensive level for a reasonable period of time. I will be completing a detailed individualized Plan of Care for this patient by day #4 of the patients stay based upon the Preadmission Screen, the Post-Admission Evaluation, and the therapy evaluations. Admission Dx/Comorbidities: (1) Acute respiratory failure with hypoxia and hypercapnia Status: Acute ICD Codes: J96.01 - Acute respiratory failure with hypoxia; J96.01 - Acute respiratory failure with hypoxia; J96.02 - Acute respiratory failure with hypercapnia; J96.02 - Acute respiratory failure with hypercapnia (2) HTN (hypertension) Status: Chronic ICD Codes: I10 - Essential (primary) hypertension (3) Acute exacerbation of chronic obstructive pulmonary disease (COPD) Status: Acute ICD Codes: J44.1 - Chronic obstructive pulmonary disease with (acute) exacerbation (4) Dementia ICD Codes: F03.90 - Unspecified dementia, unspecified severity, without behavioral disturbance, psychotic disturbance, mood disturbance, and anxiety (5) Respiratory failure Status: Acute ICD Codes: J96.90 - Respiratory failure Assessment/Plan Assessment and Plan Assess & Plan/Chief Complaint Assessment: Acute on chronic respiratory failure with hypoxia and hypercapnia COPD exacerbation currently on taper steroids Influenza A status post BiPAP UTI completed antibiotics HTN Hypomagnesemia Poor prognosis long-term Presumed dementia Delirium improved DVT prophylaxis: Lovenox Smoker Plan: O2 Nebs Supportive care Monitor closely Aggressive rehab DNR LORENA OSULLIVAN DO Feb 20, 2022 11:58
[2022-02-20] MEDS ORDERED: MELATONIN 3 MG TABLET PO PRN (12:00)
[2022-02-20] MEDS ORDERED: ALPRAZolam 0.25 MG (XANAX) TAB PO PRN (12:00)
[2022-02-20] MEDS ORDERED: ACETAMINOPHEN 325 MG TABLET PO PRN ×2 (12:00→15:30)
[2022-02-20] MEDS ORDERED: CALCIUM CARBONATE 500 MG (TUMS) TAB.CHEW PO PRN ×2 (12:00→15:30)
[2022-02-20] MEDS ORDERED: guaiFENesin/CODEINE (ROBITUSSIN AC) 10ML UDC PO PRN (12:00)
[2022-02-20] MEDS ORDERED: DOCUSATE SODIUM 100 MG (COLACE) CAP PO PRN (12:00)
[2022-02-20] MEDS ORDERED: BISACODYL 10 MG SUPP (DULCOLAX) PR PRN (12:00)
[2022-02-20] MEDS ORDERED: FLEET ENEMA ADULT 1 EA BTL PR PRN (12:00)
[2022-02-20] MEDS ORDERED: LACTULOSE SYRUP 10GM/15ML (ENULOSE) 30ML UDC PO PRN (12:00)
[2022-02-20] MEDS ORDERED: ONDANSETRON 4 MG (ZOFRAN) ORAL DISSOLVE TAB PO PRN (12:00)
[2022-02-20] MEDS ORDERED: diphenhydrAMINE 25 MG TAB (BENADRYL) PO PRN (12:00)
[2022-02-20] MEDS ORDERED: LOPERAMIDE 2 MG (IMODIUM) TABLET PO PRN (12:00)
--- NOTE | 2022-02-20 14:41 | Occupational Therapy Eval ---
OT Evaluation-General/PLF Medical Diagnosis Admission Date Feb 20, 2022 at 13:25 Medical Diagnosis: AECOPD; A/C Respiratory Failure Onset Date: Feb 13, 2022 Therapy Diagnosis Therapy Diagnosis: decreased ADL status Height/Weight Height (Feet): 4 Height (Inches): 11.00 Weight (Pounds): 151 Weight (Ounces): 14.8 Referral Physician: Jan Referral Reason: Evaluation/Treatment Medical History Pertinent Medical History: CABG, CAD, COPD, GERD, HTN, Smoking Additional Medical History CAD, CABG, COPD, HTN, GERD, anxiety/depression Current History ED 02/12/22 with SOA, productive cough, fever/chills, sore throat, DESAI, N/C. She was intubated for a few days, extubated 02/19/22. Pt transferred to ARU 02/20/22. Social History Home: [place] Current Living Status: Spouse Entry Into Home: Ramp Steps Inside Home: 2 (with rail into bathroom) ADL-Prior Level of Function SCALE: Activities may be completed with or without assistive devices. 1-Xfirpvbijt-iatdawi completes the activity by him/herself with no assistance from a helper. 5-Set-up or Clean-up Assistance-helper sets up or cleans up; patient completes activity. [place] assists only prior to or following the activity. 4-Supervision or Touching Assistance-helper provides verbal cues and/or touching/steadying and/or contact guard assistance as patient completes activity. Assistance may be provided throughout the activity or intermittently. 3-Partial/Moderate Assistance-helper does LESS THAN HALF the effort. [place] lifts, holds or supports trunk or limbs, but provides less than half the effort. 2-Substantial/Maximal Assistance-helper does MORE THAN HALF the effort. [place] lifts or holds trunk or limbs and provides more than half the effort. 0-Xgfnzfmac-tnxyji does ALL the effort. Patient does none of the effort to complete the activity. Or, the assistance of 2 or more helpers is required for the patient to complete the activity. If activity was not attempted, code reason: 7-Patient Refused. 9-Not Applicable-not attempted and the patient did not perform the activity before the current illness, exacerbation or injury. 10-Not Attempted due to Environmental Limitations-(lack of equipment, weather restraints, etc.). 88-Not Attempted due to Medical Conditions or Safety Concerns. ADL PLOF Comments Pt reports IND with ADLs and functional mobility, no AD. Self Care: Independent Functional Cognition: Independent DME/Equipment: Bath Chair, Shower OT Current Status Subjective Pt agreeable to OT evaluation and tx. Pt had high BP throughout tx, nurse aware. Mental Status/Objective Patient Orientation: Person, Place, Situation Attachments: Taylor Catheter, IV, Oxygen (2L) Current Glasses/Contacts: Yes Hearing Aids: No Dentures/Partials: Yes Hand Dominance: Left Upper Extremity ROM WFL, BUE shoulder flexion to approx 130 degrees Upper Extremity Coordination WFL Upper Extremity Sensation WFL Upper Extremity Strength grossly 3+/5 ADL-Treatment Eating (QC): 6 Oral Hygiene (QC): 6 Shower/Bathe Self (QC): 3 (Min A) Upper Body Dressing (QC): 4 Lower Body Dressing (QC): 3 (Min A) On/Off Footwear (QC): 6 Toileting Hygiene (QC): 3 (Min A ) Other Treatments OT evaluation complete. OT/PT cotreat due to skill of 2 clinicians required which a vocational rehabilitation consultant could not perform in order to coordinate UE/LEs, decrease fall risk, and due to pt's limitations in high BP, strength, activity tolerance, transfers/mobility, and standing balance. OT focused on UE placement, ADLs, and cues for sequencing and safety, PT focused on LE placement, gross overall movement, standing balance, and transfers/mobility. Pt completed functional transfers and mobility including car transfers, uneven surface, sit to stand and functional mobility using FWW, all transfers and mobility Min A. At beginning of tx, pt's BP 187/87. After uneven surface/mobility, 191/93, with rest 182/89, with significant rest break 179/88. Pt taken to therapy gym where she completed seated exercises. Pt demo'd ability to complete footwear, then completed x10 reps each BUE shoulder flexion and elbow flexion/extension. After seated exercises, pt's BP 175/91. Pt stood in parallel bars completing reaching task to simulate LE clothing management with clothespins. Pt required hand over hand assistance to locate all 6 clothespins and min A standing balance. BP 187/110 after task. Pt completed 2 more stands in parallel bars, BP 180/110 and 205/107. Pt took significant rest breaks between stands, after rest break BP 187/91. Pt taken back to her room, transferred to EOB then supine, min A. Post tx, pt in bed, call light in reach and all needs met. Nurse present throughout tx and aware of each BP reading. Education OT Patient Education: Correct positioning, Energy conservation, Modified ADL techniques, Progress toward Goal/Update tx plan, Purpose of tx/functional activ ities, Rehab process Teaching Recipient: Patient Teaching Methods: Discussion Response to Teaching: Verbalize Understanding BIMS CAM BIMS Expression of Ideas and Wants: Without Difficulty Understanding Verbal Content: Understands Brief Interview/Mental Status: Yes IRF KOBI BIMS: IRF KOBI BIMS Response (Comments) Value Repitition of Three Words Three 3 Recalls Socks Yes, No Cue Required 2 Recalls Blue Yes, No Cue Required 2 Recalls Bed Yes, No Cue Required 2 Year Correct 3 Month Accurate Within 5 Days 2 Day Incorrect or No Answer 0 Total 14 CAM Mental Status Change/Baseline: 0 Inattention: 0 Disorganized thinkin Altered level of consciousness: 0 OT Short Term Goals Short Term Goals Time Frame: Mar 02, 2022 Toileting hygiene: 4 Shower/bathe self: 4 Lower body dressin OT General Manager Farm Goals General Manager Farm Goals Time Frame: Mar 13, 2022 Acute change in mental status: 0 Inattention: 0 Disorganized thinkin Altered level of consciousness: 0 Eating (QC): 6 Oral Hygiene (QC): 6 Toileting Hygiene (QC): 6 Shower/Bathe Self (QC): 6 Upper Body Dressing (QC): 6 Lower Body Dressing (QC): 6 On/Off Footwear (QC): 6 Additional Goals: 1-Demonstrate ADL Tasks, 2-Verbalize Understanding, 3- ImproveStrength/Lou 1=Demonstrate adherence to instructed precautions during ADL tasks. 2=Patient will verbalize/demonstrate understanding of assistive devices/modifications for ADL. 3=Patient will improve strength/tolerance for activity to enable patient to perform ADL's. OT Education/Plan Problem List/Assessment Assessment: Decreased Activ Tolerance, Decreased UE Strength, Impaired Funct Balance, Impaired I ADL's, Impaired Self-Care Skills Discharge Recommendations Plan/Recommendations: Continue POC Barriers to Progress Pt's high BP limits intensive therapy due to significant rest breaks being required throughout tx. Treatment Plan/Plan of Care Patient would benefit from OT for education, treatment and training to promote independence in ADL's, mobility, safety and/or upper extremity function for ADL's. Plan of Care: ADL Retraining, Functional Mobility, Group Exercise/Act as Ind, UE Funct Exercise/Act Treatment Duration: Mar 13, 2022 Frequency: At least 5 of 7 days/Wk (IRF) Estimated Hrs Per Day: 1.5 hours per day Agreement: Yes Rehab Potential: Fair Time Start Time: 13:35 Stop Time: 15:05 DATE: Feb 20, 2022 Total Time Billed (hr/min): 90 Billed Treatment Time 3328-3277 OT eval (10'), [id number] [place] (80') 1, EVH (10'), FA 5 (80') SAMMY BRENNER OT Feb 20, 2022 14:41
--- NOTE | 2022-02-20 14:57 | Physical Therapy Evaluation ---
PT Evaluation-General Medical Diagnosis Admission Date Feb 20, 2022 at 13:25 Medical Diagnosis: Acute exacerbation of COPD with respiratory distress, flu A Onset Date: Feb 13, 2022 Therapy Diagnosis Therapy Diagnosis: impaired mobility Height/Weight Height (Feet): 4 Height (Inches): 11.00 Weight (Pounds): 151 Weight (Ounces): 14.8 Referral Physician: Adriana Montoya DO Reason for Referral: Evaluation/Treatment Medical History Pertinent Medical History: CABG, CAD, COPD, GERD, HTN, Smoking Reviewed History: Yes Social History Home: Single Level Current Living Status: Spouse Entry Into Home: Stairs With Railing PT Steps Inside Home: 2 Prior Prior Level of Function SCALE: Activities may be completed with or without assistive devices. 0-Hzdpecbzsv-nlsyrnh completes the activity by him/herself with no assistance from a helper. 5-Set-up or Clean-up Assistance-helper sets up or cleans up; patient completes activity. [place] assists only prior to or following the activity. 4-Supervision or Touching Assistance-helper provides verbal cues and/or to uching/steadying and/or contact guard assistance as patient completes activity. Assistance may be provided throughout the activity or intermittently. 3-Partial/Moderate Assistance-helper does LESS THAN HALF the effort. [place] lifts, holds or supports trunk or limbs, but provides less than half the effort. 2-Substantial/Maximal Assistance-helper does MORE THAN HALF the effort. [place] lifts or holds trunk or limbs and provides more than half the effort. 6-Nlhtauhyc-sxetni does ALL the effort. Patient does none of the effort to complete the activity. Or, the assistance of 2 or more helpers is required for the patient to complete the activity. If activity was not attempted, code reason: 7-Patient Refused. 9-Not Applicable-not attempted and the patient did not perform the activity before the current illness, exacerbation or injury. 10-Not Attempted due to Environmental Limitations-(lack of equipment, weather restraints, etc.). 88-Not Attempted due to Medical Conditions or Safety Concerns. Bed Mobility: 6 Transfers (B,C,W/C): 6 Gait: 6 Stairs: 6 Indoor Mobility (Ambulation): Independent Stairs: Independent PT Evaluation-Current Subjective Patient in recliner pre tx, agrees to PT, has no complaints of pain. Will be co-treating with OT for part of tx due to poor patient mobility, strength, endurance, severe debility, coordinate UE and LE during activity, safety and reduce risk of falls. Pain Section J - Health Conditions 1. Rarely or not at all 2. Occasionally 3. Frequently 4. Almost constantly 8. Unable to answer Pain Effect on Sleep: 1 Pain Interference with Therapy: 1 Pain Interference w/Day-to-Day: 1 Pt/Family Goals to be independent at home Objective Patient Orientation: Person, Place, Situation, [place] Attachments: Taylor Catheter, IV ROM/Strength ROM Lower Extremities WNL Strength Lower Extremities LLE (hip flexion 3+/5, knee flexion 4/5, knee extension 4/5, dorsiflexion 3+/5), RLE (hip flexion 3+/5, knee flexion 4/5, knee extension 4/5, dorsiflexion 3+/5) Sensory Vision: Wears Glasses Hearing: Functional Sensation Right Lower Extremit: Intact Sensation Left Lower Extremity: Intact Transfers Roll Left & Right (QC): 4 Sit to Lying (QC): 3 Lying to Sitting/Side of Bed(Q: 3 Sit to Stand (QC): 3 Chair/Ksx-tb-[place]ab[place] Xfer(QC): 3 Toilet Transfer (QC): 3 Car Transfer (QC): 3 Patient performs rolling with SBA, supine <-> sit min assist, sit <-> stand and transfers min assist, car transfer min assist. Patient needs assist with balance occasionally during transfers, she can be unsteady, cues for hand placement and safety. Gait Walk 10 feet (QC): 3 Walk 50 ft with 2 Turns(QC): 88 Walk 150 ft (QC): 88 Walking 10ft/uneven surface-QC: 3 Distance: 10'x2 Gait Assistive Device: FWW Comments/Gait Description Patient can ambulate 10' with a rolling walker with min assist (including 10' over an uneven surface), gait is unsteady, needs min assist for balance, slow ambulation, short steps Wheelchair Training Does the Pt Use a Wheelchair?: Yes Wheel 50 ft with 2 turns (QC): 1 Wheel 150 ft (QC): 1 Stairs 1 Step (curb) (QC): 88 4 Steps (QC): 88 12 Steps (QC): 88 Balance Sitting Static: Fair Sitting Dynamic: Fair Standing Static: Poor Standing Dynamic: Poor Picking up an Object (QC): 88 Treatment Patient also performed standing in the parallel bars x2 without UE support in order to work on balance and standing activity grabbing clothespins on clothes to simulate reaching during dressing. PT performed bed mobility and transfers, ambulation, standing activity, OT performed dressing, UE positioning and safety during activity, standing activity. Patient also performed BLE seated exercises x20 (AP, LAQ, marching) Assessment/Needs Patient in bed post tx with nurse call, phone, tray, all needs met. Patient had trouble with increasing blood pressure with very little activity. She needed frequent rest breaks to try to decrease BP. After getting to rehab patient's BP was 187/87, it varied from 175/91 to 205/107. She was able to do very little due to increasing BP. Rehab Potential: Guarded PT Short Term Goals Short Term Goals Time Frame: Feb 27, 2022 Roll Left & Right: 4 Sit to lyin (SBA) Lying to sitting on side of be: 4 (SBA) Sit to stand: 4 (CGA) Chair/ape-gq-juusw transfer: 4 (CGA) Walk 10 feet: 4 (CGA) Walk 50 feet with two turns: 4 (CGA) PT Jail Goals Casting Machine Set Up Operator Goals PT Casting Machine Set Up Operator Goals Time Frame: Mar 06, 2022 Roll Left to Right (QC): 6 Sit to Lying (QC): 6 Lying-Sitting on Side/Bed(QC): 6 Sit to Stand (QC): 4 (SBA) Chair/Zla-xn-Rodcs Xfer(QC): 4 (SBA) Toilet/Commode Transfer (QC): 4 (SBA) Car Transfer (QC): 4 (SBA) Walk 10 feet (QC): 4 (SBA) Walk 10ft-Uneven Surface(QC): 4 (SBA) Walk 50ft with 2 Turns (QC): 4 (SBA) Walk 150 ft (QC): 4 (SBA) Wheel 50 feet with 2 turns (QC: 9 Wheel 150 feet: 9 1 Step (curb) (QC): 4 (CGA) 4 Steps (QC): 4 (CGA) 12 Steps (QC): 88 Picking up an Object (QC): 4 (CGA using a spinning lathe operator hydraulic) PT Plan Problem List Problem List: Activity Tolerance, Functional Strength, Safety, Balance, Gait, Transfer, Bed Mobility, ROM Treatment/Plan Treatment Plan: Continue Plan of Care Treatment Plan: Bed Mobility, Education, Functional Activity Lou, Functional Strength, Group Therapy, Gait, Safety, Therapeutic Exercise, Transfers Treatment Duration: Mar 06, 2022 Frequency: At least 5 of 7 days/Wk (IRF) Estimated Hrs Per Day: 1.5 hours per day Patient and/or Family Agrees t: Yes Safety Risks/Education Patient Education: Gait Training, Transfer Techniques, Correct Positioning, Safety Issues Teaching Recipient: Patient Teaching Methods: Demonstration, Discussion Response to Teaching: Reinforcement Needed Discharge Recommendations Plan Patient will perform bed mobility and transfer training, balance and endurance training, functional strengthening, stair training, gait training, and education, to improve functional mobility and independence at home. Therapy Discharge Recommendati: Scheduled Assistance, Home & Family, Post Acute PT Time Time In: 1325 Time Out: 1505 DATE: Feb 20, 2022 Total Billed Treatment Time: 90 Total Billed Treatment 1 visit EVM 10' EX 15' FA 65' PT eval from [id number], OT eval from [id number], co-treat from [id number] STEFFANIE ANGLIN PT Feb 20, 2022 14:57
[2022-02-20] MEDS ORDERED: LORazepam INJ 2 MG/ML (ATIVAN) VIAL IVP PRN (15:30)
[2022-02-20] MEDS ORDERED: hydrALAZINE (APESOLINE) 20 MG/ML VIAL IV PRN (15:30)
[2022-02-20] MEDS ORDERED: polyethylene glycoL POWDER 17 GM (MIRALAX) PACK PO PRN (15:30)
[2022-02-20] MEDS ORDERED: ANTACID SUSP 30 ML UDC (MYLANTA) PO PRN (15:30)
[2022-02-20] MEDS ORDERED: MILK OF MAGNESIA 400 MG/5 ML 30 ML UDC PO PRN (15:30)
[2022-02-20] MEDS ORDERED: HALOPERIDOL 5 MG/ML (HALDOL) VIAL IM PRN ×2 (15:30→23:30)
[2022-02-20] MEDS ORDERED: RT-ALBUTEROL SULF 2.5 MG/3 ML PRE-MIX VIAL INH PRN (15:30)
[2022-02-20] MEDS ORDERED: ALPRAZolam 0.5 MG (XANAX) TAB PO PRN (15:30)
[2022-02-20] MEDS ORDERED: ENALAPRILAT 2.5 MG/2 ML (VASOTEC) VIAL IV PRN (15:30)
[2022-02-20] MEDS: ENOXAPARIN 40 MG/0.4 ML (LOVENOX) SYR SC SCH (16:07)
[2022-02-20] MEDS: RT-ALBUTEROL/IPRATROPIUM 3 ML (DUONEB) VIAL IH SCH ×2 (19:01→22:35)
[2022-02-20 19:27] VITALS: BP 193/88
[2022-02-20] MEDS: polyethylene glycoL POWDER 17 GM (MIRALAX) PACK PO SCH (20:03)
[2022-02-20] MEDS: DOCUSATE SODIUM 100 MG (COLACE) CAP PO SCH (20:06)
[2022-02-20] MEDS: MELATONIN 3 MG TABLET PO PRN (20:07)
[2022-02-20] MEDS: cloNIDine 0.1 MG (CATAPRES) TAB PO SCH (20:09)
[2022-02-20] MEDS: lisINopril 20 MG (PRINIVIL) TABLET PO SCH (20:09)
[2022-02-20] MEDS: SENNA W/DOCUSATE (SENOKOT S) TABLET PO SCH (20:09)
[2022-02-20 21:32] VITALS: BP 179/83
[2022-02-20 22:28] VITALS: BP 146/70
[2022-02-21] VITALS (8 sets, daily range): BP systolic 105–217; BP diastolic 63–106
[2022-02-21] MEDS: RT-ALBUTEROL/IPRATROPIUM 3 ML (DUONEB) VIAL IH SCH ×5 (02:36→19:34)
[2022-02-21] MEDS: predniSONE 20 MG TAB PO SCH (06:19)
[2022-02-21] MEDS: cloNIDine 0.1 MG (CATAPRES) TAB PO SCH ×2 (07:45→21:11)
[2022-02-21] MEDS: SPIRONOLACTONE 25 MG (ALDACTONE) TAB PO SCH (07:45)
[2022-02-21] MEDS: SENNA W/DOCUSATE (SENOKOT S) TABLET PO SCH ×2 (07:46→21:05)
[2022-02-21] MEDS: DOCUSATE SODIUM 100 MG (COLACE) CAP PO SCH ×2 (07:46→21:05)
[2022-02-21] MEDS: toPIRamate 25 MG (TOPAMAX) TAB PO SCH (07:46)
[2022-02-21] MEDS: lisINopril 20 MG (PRINIVIL) TABLET PO SCH ×2 (07:47→21:11)
[2022-02-21] MEDS: polyethylene glycoL POWDER 17 GM (MIRALAX) PACK PO SCH ×2 (07:54→21:05)
[2022-02-21] MEDS: NICOTINE 21 MG (NICODERM) PATCH TD SCH (07:56)
[2022-02-21] MEDS: PATCH REMOVAL TP SCH (08:00)
--- NOTE | 2022-02-21 08:03 | PM&R Progress Note ---
Subjective HPI/CC On Admission Date Seen by Provider: Feb 21, 2022 Time Seen by Provider: 12:30 Subjective/Events-last exam 02/21/2022: Patient dramatically improved at the bedside No pain is reported Breathing better Slow recovery Labs reviewed Review of Systems General: Fatigue, Malaise Objective Exam Vital Signs Vital Signs Date Time Temp Pulse Resp B/P (MAP) Pulse Ox O2 Delivery O2 Flow Rate FiO2 02/21/22 16:25 36.4 88 96 02/21/22 08:20 Nasal Cannula 2.00 02/21/22 08:16 186/94 (124) 02/21/22 08:01 20 Capillary Refill : General Appearance: WD/WN, Anxious, Chronically ill HEENT: PERRL/EOMI, Normal ENT Inspection, Pharynx Normal Neck: Full Range of Motion, Normal Inspection, Non Tender, Supple, Carotid Bruit Respiratory: Chest Non Tender, No Accessory Muscle Use, No Respiratory Distress, Decreased Breath Sounds Cardiovascular: Regular Rate, Rhythm, No Edema, No Gallop, No JVD, No Murmur, Normal Peripheral Pulses Gastrointestinal: Normal Bowel Sounds, No Organomegaly, No Pulsatile Mass, Non Tender, Soft Back: Normal Inspection, No CVA Tenderness, No Vertebral Tenderness Extremity: Normal Capillary Refill, Normal Inspection, Normal Range of Motion, Non Tender, No Calf Tenderness, No Pedal Edema Neurologic/Psychiatric: Alert, Oriented x3, No Motor/Sensory Deficits, will call clerk II- XII Norm as Tested, Abnormal Gait, Depressed Affect, Motor Weakness (Generalized) Skin: Normal Color, Warm/Dry Lymphatic: No Adenopathy Results/Procedures Lab Laboratory Tests 02/21/22 09:30 Patient resulted labs reviewed. FIM Transfers Therapy Code Descriptions/Definitions Functional [place] Measure: 0=Not Assessed/NA 4=Minimal Assistance 1=Total Assistance 5=Supervision or Setup 2=Maximal Assistance 6=Modified [place] 3=Moderate Assistance 7=Complete IndependenceSCALE: Activities may be completed with or without assistive devices. 8-Ctzqjegksl-ewkrakb completes the activity by him/herself with no assistance from a helper. 5-Set-up or Clean-up Assistance-helper sets up or cleans up; patient completes activity. [place] assists only prior to or following the activity. 4-Supervision or Touching Assistance-helper provides verbal cues and/or touc yanni/steadying and/or contact guard assistance as patient completes activity. Assistance may be provided throughout the activity or intermittently. 3-Partial/Moderate Assistance-helper does LESS THAN HALF the effort. [place] lifts, holds or supports trunk or limbs, but provides less than half the effort. 2-Substantial/Maximal Assistance-helper does MORE THAN HALF the effort. [place] lifts or holds trunk or limbs and provides more than half the effort. 5-Efwfzahur-awifjv does ALL the effort. Patient does none of the effort to complete the activity. Or, the assistance of 2 or more helpers is required for the patient to complete the activity. If activity was not attempted, code reason: 7-Patient Refused. 9-Not Applicable-not attempted and the patient did not perform the activity be fore the current illness, exacerbation or injury. 10-Not Attempted due to Environmental Limitations-(lack of equipment, weather restraints, etc.). 88-Not Attempted due to Medical Conditions or Safety Concerns. Roll Left to Right (QC): 4 Sit to Lying (QC): 3 Sit to Stand (QC): 3 Chair/Hgq-zj-Smzyy Xfer(QC): 3 Car Transfer (QC): 3 Gait Training Walk 10 feet (QC): 3 Walk 50 ft with 2 Turns(QC): 88 Walk 150 ft (QC): 88 Walking 10ft/uneven surface-QC: 3 Gait Assistive Device: FWW Wheelchair Training Does the Pt Use a Wheelchair?: Yes Wheel 50 ft with 2 turns (QC): 1 Wheel 150 ft (QC): 1 Stair Training 1 Step (curb) (QC): 88 4 Steps (QC): 88 12 Steps (QC): 88 Balance Picking up an Object (QC): 88 ADL-Treatment Eating (QC): 6 Oral Hygiene (QC): 6 Shower/Bathe Self (QC): 3 (Min A) Upper Body Dressing (QC): 4 Lower Body Dressing (QC): 3 (Min A) On/Off Footwear (QC): 6 Toileting Hygiene (QC): 3 (Min A ) Assessment/Plan Assessment and Plan Assess & Plan/Chief Complaint Assessment: Acute on chronic respiratory failure with hypoxia and hypercapnia COPD exacerbation currently on taper steroids Influenza A status post BiPAP UTI completed antibiotics HTN Hypomagnesemia Poor prognosis long-term Presumed dementia Delirium improved DVT prophylaxis: Lovenox Smoker Hypercalcemia Plan: O2 Nebs Supportive care Monitor closely Aggressive rehab DNR 02/21/2022: Add PTH to labs Taper down steroids (1) Acute respiratory failure with hypoxia and hypercapnia Status: Acute (2) HTN (hypertension) Status: Chronic (3) Acute exacerbation of chronic obstructive pulmonary disease (COPD) Status: Acute (4) Dementia (5) Respiratory failure Status: Acute LORENA OSULLIVAN DO Feb 21, 2022 08:03
--- NOTE | 2022-02-21 08:03 | Individualized Plan of Care ---
Individualized Plan of Care Rehab Nursing IPOC Order Admission Date Feb 20, 2022 at 13:25 Current Orders Orders Admission Order(Inpt,Obs,Sdc) (02/20/22 11:56) Wood Tellez (02/20/22 11:56) Sequential Compression Device (02/20/22 11:56) Solar Energy Sales Specialist-Inpt Rehab Con (02/20/22 11:56) Rehab Nursing Orders-Ipoc (02/20/22 11:56) Physical Therapy Rehab Orders (02/20/22 11:56) Occupational Therapy Rehab Ord (02/20/22 11:56) Speech Therapy Rehab Orders (02/20/22 11:56) Cbc With Automated Diff (02/21/22 06:00) Comprehensive Metabolic Panel (02/21/22 06:00) Precautions (Aru) (02/20/22 11:56) Rehab-Intensity Of Therapy (02/20/22 11:56) Initiate Admission Nursing Pro .admission (02/20/22 11:56) Alprazolam Tablet (Xanax Tablet) (02/20/22 12:00) Calcium Carbonate Chew Tablet (Antacid C (02/20/22 12:00) Diphenhydramine Tablet (Benadryl Tablet) (02/20/22 12:00) Docusate Sodium Capsule (Colace Capsule) (02/20/22 21:00) Docusate Sodium Capsule (Colace Capsule) (02/20/22 12:00) Bisacodyl Suppository (Dulcolax Supposit (02/20/22 12:00) Lactulose Oral Solution (Enulose Oral So (02/20/22 12:00) Na Phos/Na Biphos Enema (Fleet Enema Juan (02/20/22 12:00) Guaifenesin/Codeine Syrup (Robitussin Ac (02/20/22 12:00) Loperamide Tablet (Imodium Tablet) (02/20/22 12:00) Melatonin Tablet (Melatonin Tablet) (02/20/22 12:00) Polyethylene Glycol Powder Pkt (Miralax (02/20/22 21:00) Ondansetron Oral Dissolve Tab (Zofran (02/20/22 12:00) Senna S Tablet (Senokot S Tablet) (02/20/22 21:00) Acetaminophen Tablet/Caplet (Tylenol T (02/20/22 12:00) Initiate Admission Nursing Pro .admission (02/20/22 11:56) Transfer - Bed/Room/Location (02/20/22 13:39) Patient Visit (02/20/22 ) Pt Eval Moderate Complexity (02/20/22 ) Exercise Therap, Ea 15 Min (02/20/22 ) Functional Activities, Ea 15 (02/20/22 ) Code/Resuscitation (02/20/22 15:23) Edu Tobacco/Smoking Cessation .prn (02/20/22 15:23) Incentive Spirometry (Nursing) Q2H (02/20/22 15:23) Initiate Admission Nursing Pro .admission (02/20/22 15:23) Midline Cap Change Q7D (02/20/22 15:23) Midline Dressing Change Q7D (02/20/22 15:23) General/Regular (02/20/22 Dinner) Alprazolam Tablet (Xanax Tablet) (02/20/22 15:30) Albuterol Pre-Mix Nebs (Rt) (Proventil (02/20/22 15:30) Albuterol/Ipra Inhalation Soln (Duoneb I (02/20/22 18:00) Enalaprilat Injection (Vasotec Injection (02/20/22 15:30) Haloperidol Injection (Haldol Injectio (02/20/22 15:30) Lorazepam Injection (Ativan Injection) (02/20/22 15:30) Enoxaparin Injection (Lovenox Injection) (02/20/22 16:00) Melatonin Tablet (Melatonin Tablet) (02/20/22 15:30) Magnesium Hydroxide Oral Susp (Mom Oral (02/20/22 15:30) Polyethylene Glycol Powder Pkt (Miralax (02/20/22 15:30) Antacid Suspension (Mylanta Suspension (02/20/22 15:30) Nicotine Patch (Nicoderm Patch) (02/21/22 09:00) Patch Removal (Patch Removal) (02/21/22 08:59) Spironolactone Tablet (Aldactone Tablet) (02/21/22 09:00) Topiramate Tablet (Topamax Tablet) (02/21/22 09:00) Calcium Carbonate Chew Tablet (Antacid C (02/20/22 15:30) Acetaminophen Tablet/Caplet (Tylenol T (02/20/22 15:30) Carvedilol Tablet (Coreg Tablet) (02/20/22 21:00) Clonidine Tablet (Catapres Tablet) (02/20/22 21:00) Diazepam Tablet (Valium Tablet) (02/20/22 15:30) Hydralazine Injection (Apresoline Inject (02/20/22 15:30) Lisinopril Tablet (Zestril Tablet) (02/20/22 21:00) Prednisone Tablet (Deltasone Tablet) (02/21/22 07:00) Incentive Spirometry Initial (02/20/22 15:23) Mat Initiate Protocol (02/20/22 15:23) Svn Small Volume Nebulizer (02/20/22 15:23) Incentive Spirometry (Nursing) Q2H (02/20/22 15:23) Clonidine Tablet (Catapres Tablet) (02/20/22 21:30) Haloperidol Injection (Haldol Injectio (02/20/22 23:30) Manual Differential (02/21/22 09:30) Catheter(Urinary) Discontinue (02/21/22 12:36) Patient Visit (02/21/22 ) Exercise Therap, Ea 15 Min (02/21/22 ) Albuterol/Ipra Inhalation Soln (Duoneb I (02/21/22 21:00) Para Thryoid Hormone Intact (02/21/22 16:51) Rehab Nursing Orders: Ongoing Assess. of Function Status, Bladder Management, Bladder Scan, Bladder Training, Bowel Management, Bowel Training, Disease Management & Educaiton, DVT Prophylaxis, Fall Prevention, Fluid/Electrolyt e/Nutrition Mgmt, Infection Prevention, Medication Management & Education, Management of Risks & Complications, Management of Skin Intergrity, Nutrition Management, Pain Management, Patient/Family Support, Safety Management, Wound Management Intensity of Therapy to be met Patient to be seen: Min.3h per day/5 of 7d PT IPOC Problem List: Activity Tolerance, Functional Strength, Safety, Balance, Gait, Transfer, Bed Mobility, ROM Treatment Plan: Continue Plan of Care Bed Mobility, Education, Functional Activity Lou, Functional Strength, Group Therapy, Gait, Safety, Therapeutic Exercise, Transfers Treatment Duration: Mar 06, 2022 Frequency: At least 5 of 7 days/Wk (IRF) Estimated Hrs Per Day: 1.5 hours per day OT IPOC Problems: Decreased Activ Tolerance, Decreased UE Strength, Impaired Funct Balance, Impaired I ADL's, Impaired Self-Care Skills OT Treatment, Training and Edu: Yes Plan of Care: ADL Retraining, Functional Mobility, Group Exercise/Act as Ind, UE Funct Exercise/Act Treatment Duration: Mar 13, 2022 Frequency: At least 5 of 7 days/Wk (IRF) Estimated Hrs Per Day: 1.[address] IPOC Speech Therapy Treatment Plan: Continue Plan of Care Treatment Duration: Feb 20, 2022 Frequency: Modified Program (IRF) Estimated Hrs Per Day: Other Solar Energy Sales Specialist/Case Mgmt Solar Energy Sales Specialist/Case Managemen: Discharge Planning Dietitian/Pilot Boat Operator Dietitian/Pilot Boat Operator to monitor nutritional status and make changes and/or recommendations as needed and work with speech pathology on dietary upgrades as the occur. Physician IPOC Medical Issues being managed closely and that require the 24 hour availability of a physician: Recent critical illness with respiratory failure requiring BiPAP and aggressive critical care management will require close monitoring of any respiratory compromise Medical Issues: Bowel/Bladder Function, DVT Prophylaxis, Falls Precautions, Fluid/Electrolyte/Nutrition Balance, Infection Protection, Pain Management Brief Synthesis of Preadmission Screen, Post-Admission Evaluation, and Therapy Evaluations: PT and OT will focus on regaining function while building stamina for respiratory status in order to gain independence in order to return back home with her spouse Medical Prognosis: Fair Anticipated Length of Stay: 7 days LORENA OSULLIVAN DO Feb 21, 2022 08:03
[2022-02-21] MEDS: cloNIDine 0.1 MG (CATAPRES) TAB PO PRN (08:04)
[2022-02-21 09:39] LABS: BASOPHILS % (AUTO) 0 % (0-10); EOSINOPHILS % (AUTO) 0 % (0-10); HEMATOCRIT 40 % (35-52); HEMOGLOBIN 13.1 g/dL (11.5-16.0); LYMPHOCYTES # (AUTO) 0.9 10^3/uL (1.0-4.0); LYMPHOCYTES % (AUTO) 6 % (12-44); MEAN CORPUSCULAR HEMOGLOBIN 29 pg (25-34); MEAN CORPUSCULAR HGB CONC 33 g/dL (32-36); MEAN CORPUSCULAR VOLUME 91 fL (80-99); MEAN PLATELET VOLUME 10.5 fL (9.0-12.2); MONOCYTES % (AUTO) 7 % (0-12); NEUTROPHILS # (AUTO) 12.9 10^3/uL (1.8-7.8); NEUTROPHILS % (AUTO) 85 % (42-75); PLATELET COUNT 201 10^3/uL (130-400)
[2022-02-21 10:00] LABS: ALBUMIN 3.3 GM/DL (3.2-4.5); BILIRUBIN,TOTAL 0.5 MG/DL (0.1-1.0); CALCIUM 10.9 MG/DL (8.5-10.1); CREATININE SERUM 0.7 MG/DL (0.60-1.30); POTASSIUM 4.1 MMOL/L (3.6-5.0); TOTAL PROTEIN 6.3 GM/DL (6.4-8.2)
[2022-02-21 10:34] LABS: LYMPHOCYTES % (MANUAL) 11 %; MONOCYTES % (MANUAL) 8 %; NEUTROPHILS % (MANUAL) 81 %; RBC MORPH NORMAL
--- NOTE | 2022-02-21 12:45 | Physical Therapy Daily Note ---
PT Daily Note-Current Subjective Upon arrival, pt was supine in bed, pt states that she didn't sleep very well and that she has no pain. Pt agrees to PT. Pain Section J - Health Conditions 1. Rarely or not at all 2. Occasionally 3. Frequently 4. Almost constantly 8. Unable to answer Pain Effect on Sleep: 1 Pain Interference with Therapy: 1 Pain Interference w/Day-to-Day: 1 Mental Status Patient Orientation: Person, Situation Attachments: IV Transfers SCALE: Activities may be completed with or without assistive devices. 5-Fecfftodwh-pfbrght completes the activity by him/herself with no assistance from a helper. 5-Set-up or Clean-up Assistance-helper sets up or cleans up; patient completes activity. [place] assists only prior to or following the activity. 4-Supervision or Touching Assistance-helper provides verbal cues and/or touching/steadying and/or contact guard assistance as patient completes activity. Assistance may be provided throughout the activity or intermittently. 3-Partial/Moderate Assistance-helper does LESS THAN HALF the effort. [place] lifts, holds or supports trunk or limbs, but provides less than half the effort. 2-Substantial/Maximal Assistance-helper does MORE THAN HALF the effort. [place] lifts or holds trunk or limbs and provides more than half the effort. 2-Ckewwcbgx-qsereo does ALL the effort. Patient does none of the effort to complete the activity. Or, the assistance of 2 or more helpers is required for the patient to complete the activity. If activity was not attempted, code reason: 7-Patient Refused. 9-Not Applicable-not attempted and the patient did not perform the activity before the current illness, exacerbation or injury. 10-Not Attempted due to Environmental Limitations-(lack of equipment, weather restraints, etc.). 88-Not Attempted due to Medical Conditions or Safety Concerns. Gait Training Does the Patient Walk?: No and Walking Goal IS indicated Exercises Supine Ex: Ankle pumps, Heel Slides, Straight leg raise, Hip abd/add Supine Reps: 10 Treatments Pt completed all activities listed above. During PT, slab stripper arrives to draw blood. Once PT was concluded, pt was supine in bed with call light and tray in reach and all needs met. Assessment Current Status: Fair Progress Pt would benefit from continued skilled PT to address strength, and activity tolerance. PT Short Term Goals Short Term Goals Time Frame: Feb 27, 2022 Roll Left & Right: 4 Sit to lyin (SBA) Lying to sitting on side of be: 4 (SBA) Sit to stand: 4 (CGA) Chair/blh-wn-fjjjp transfer: 4 (CGA) Walk 10 feet: 4 (CGA) Walk 50 feet with two turns: 4 (CGA) PT Alf Goals Percussion Instrument Repairer Goals PT Percussion Instrument Repairer Goals Time Frame: Mar 06, 2022 Roll Left & Right (QC): 6 Sit to Lying (QC): 6 Lying-Sitting on Side/Bed(QC): 6 Sit to Stand (QC): 4 (SBA) Chair/Nqf-pk-Xlahh Xfer(QC): 4 (SBA) Toilet Transfer (QC): 4 (SBA) Car Transfer (QC): 4 (SBA) Does the Patient Walk: Yes Walk 10 feet (QC): 4 (SBA) Walk 50ft with 2 Turns (QC): 4 (SBA) Walk 150 ft (QC): 4 (SBA) Walking 10ft on Uneven Surface: 4 (SBA) 1 Step (curb) (QC): 4 (CGA) 4 Steps (QC): 4 (CGA) 12 Steps (QC): 88 Picking up an Object (QC): 4 (CGA using a side door man) Wheel 50 feet with 2 turns (QC: 9 Wheel 150 feet: 9 PT Plan Problem List Problem List: Activity Tolerance, Functional Strength Treatment/Plan Treatment Plan: Continue Plan of Care Treatment Plan: Bed Mobility, Education, Functional Activity Lou, Functional Strength, Group Therapy, Gait, Safety, Therapeutic Exercise, Transfers Treatment Duration: Mar 06, 2022 Frequency: At least 5 of 7 days/Wk (IRF) Estimated Hrs Per Day: 1.5 hours per day Patient and/or Family Agrees t: Yes Time Time In: 931 Time Out: 945 DATE: Feb 21, 2022 Total Billed Treatment Time: 14 Total Billed Treatment 1, EX YOSSI OMALLEY PTA Feb 21, 2022 12:45
[2022-02-21] MEDS: ENOXAPARIN 40 MG/0.4 ML (LOVENOX) SYR SC SCH (16:48)
[2022-02-21] MEDS: MELATONIN 3 MG TABLET PO PRN (21:11)
[2022-02-22] MEDS: RT-ALBUTEROL/IPRATROPIUM 3 ML (DUONEB) VIAL IH SCH ×4 (03:12→21:00)
--- NOTE | 2022-02-22 06:11 | PM&R Progress Note ---
Subjective HPI/CC On Admission Date Seen by Provider: Feb 22, 2022 Time Seen by Provider: 11:00 Subjective/Events-last exam 02/22/2022: Patient doing a lot better Resting well Maintained on oxygen Much improved with transfers Supportive care 02/21/2022: Patient dramatically improved at the bedside No pain is reported Breathing better Slow recovery Labs reviewed Review of Systems General: Fatigue, Malaise Pulmonary: Dyspnea Objective Exam Vital Signs Vital Signs Date Time Temp Pulse Resp B/P (MAP) Pulse Ox O2 Delivery O2 Flow Rate FiO2 02/22/22 15:40 95 Nasal Cannula 2.00 02/22/22 08:00 35.9 83 18 138/64 (88) Capillary Refill : General Appearance: WD/WN, Anxious, Chronically ill HEENT: PERRL/EOMI, Normal ENT Inspection, Pharynx Normal Neck: Full Range of Motion, Normal Inspection, Non Tender, Supple, Carotid Bruit Respiratory: Chest Non Tender, No Accessory Muscle Use, No Respiratory Distress, Decreased Breath Sounds Cardiovascular: Regular Rate, Rhythm, No Edema, No Gallop, No JVD, No Murmur, Normal Peripheral Pulses Gastrointestinal: Normal Bowel Sounds, No Organomegaly, No Pulsatile Mass, Non Tender, Soft Back: Normal Inspection, No CVA Tenderness, No Vertebral Tenderness Extremity: Normal Capillary Refill, Normal Inspection, Normal Range of Motion, Non Tender, No Calf Tenderness, No Pedal Edema Neurologic/Psychiatric: Alert, Oriented x3, No Motor/Sensory Deficits, qualitative researcher II- XII Norm as Tested, Abnormal Gait, Depressed Affect, Motor Weakness (Generalized) Skin: Normal Color, Warm/Dry Lymphatic: No Adenopathy Results/Procedures Lab Patient resulted labs reviewed. FIM Transfers Therapy Code Descriptions/Definitions Functional [place] Measure: 0=Not Assessed/NA 4=Minimal Assistance 1=Total Assistance 5=Supervision or Setup 2=Maximal Assistance 6=Modified [place] 3=Moderate Assistance 7=Complete IndependenceSCALE: Activities may be completed with or without assistive devices. 8-Moabalwwtx-kcvmnbt completes the activity by him/herself with no assistance from a helper. 5-Set-up or Clean-up Assistance-helper sets up or cleans up; patient completes activity. [place] assists only prior to or following the activity. 4-Supervision or Touching Assistance-helper provides verbal cues and/or touching/steadying and/or contact guard assistance as patient completes activity. Assistance may be provided throughout the activity or intermittently. 3-Partial/Moderate Assistance-helper does LESS THAN HALF the effort. [place] lifts, holds or supports trunk or limbs, but provides less than half the effort. 2-Substantial/Maximal Assistance-helper does MORE THAN HALF the effort. [place] lifts or holds trunk or limbs and provides more than half the effort. 3-Bzpzdshei-ukivnv does ALL the effort. Patient does none of the effort to complete the activity. Or, the assistance of 2 or more helpers is required for the patient to complete the activity. If activity was not attempted, code reason: 7-Patient Refused. 9-Not Applicable-not attempted and the patient did not perform the activity before the current illness, exacerbation or injury. 10-Not Attempted due to Environmental Limitations-(lack of equipment, weather restraints, etc.). 88-Not Attempted due to Medical Conditions or Safety Concerns. Roll Left to Right (QC): 4 Sit to Lying (QC): 3 Sit to Stand (QC): 3 Chair/Rhu-uy-Sgomz Xfer(QC): 3 Car Transfer (QC): 3 Gait Training Does the Patient Walk?: No and Walking Goal IS indicated Walk 10 feet (QC): 3 Walk 50 ft with 2 Turns(QC): 88 Walk 150 ft (QC): 88 Walking 10ft/uneven surface-QC: 3 Gait Assistive Device: FWW Wheelchair Training Does the Pt Use a Wheelchair?: Yes Wheel 50 ft with 2 turns (QC): 1 Wheel 150 ft (QC): 1 Stair Training 1 Step (curb) (QC): 88 4 Steps (QC): 88 12 Steps (QC): 88 Balance Picking up an Object (QC): 88 ADL-Treatment Eating (QC): 6 Oral Hygiene (QC): 6 Shower/Bathe Self (QC): 3 (Min A) Upper Body Dressing (QC): 4 Lower Body Dressing (QC): 3 (Min A) On/Off Footwear (QC): 6 Toileting Hygiene (QC): 3 (Min A ) Assessment/Plan Assessment and Plan Assess & Plan/Chief Complaint Assessment: Acute on chronic respiratory failure with hypoxia and hypercapnia COPD exacerbation currently on taper steroids Influenza A status post BiPAP UTI completed antibiotics HTN Hypomagnesemia Poor prognosis long-term Presumed dementia Delirium improved DVT prophylaxis: Lovenox Smoker Hypercalcemia Plan: O2 Nebs Supportive care Monitor closely Aggressive rehab DNR 02/21/2022: Add PTH to labs Taper down steroids 02/22/2022: Continue aggressive therapy (1) Acute respiratory failure with hypoxia and hypercapnia Status: Acute (2) HTN (hypertension) Status: Chronic (3) Acute exacerbation of chronic obstructive pulmonary disease (COPD) Status: Acute (4) Dementia (5) Respiratory failure Status: Acute LORENA OSULLIVAN DO Feb 22, 2022 06:10
[2022-02-22] MEDS: predniSONE 20 MG TAB PO SCH (06:48)
[2022-02-22 08:00] VITALS: BP 138/64
[2022-02-22] MEDS: DOCUSATE SODIUM 100 MG (COLACE) CAP PO SCH ×2 (08:40→21:44)
[2022-02-22] MEDS: SENNA W/DOCUSATE (SENOKOT S) TABLET PO SCH ×2 (08:41→21:45)
[2022-02-22] MEDS: SPIRONOLACTONE 25 MG (ALDACTONE) TAB PO SCH (08:41)
[2022-02-22] MEDS: toPIRamate 25 MG (TOPAMAX) TAB PO SCH (08:42)
[2022-02-22] MEDS: lisINopril 20 MG (PRINIVIL) TABLET PO SCH ×2 (08:42→21:45)
[2022-02-22] MEDS: cloNIDine 0.1 MG (CATAPRES) TAB PO SCH ×2 (08:42→21:44)
[2022-02-22] MEDS: NICOTINE 21 MG (NICODERM) PATCH TD SCH (08:44)
[2022-02-22] MEDS: polyethylene glycoL POWDER 17 GM (MIRALAX) PACK PO SCH ×2 (08:44→21:45)
[2022-02-22] MEDS: PATCH REMOVAL TP SCH (09:26)
[2022-02-22] MEDS ORDERED: CATHETER FLUSH 10 ML SYR IVP PRN (14:30)
[2022-02-22] MEDS: ENOXAPARIN 40 MG/0.4 ML (LOVENOX) SYR SC SCH (16:55)
[2022-02-22 20:00] VITALS: BP 168/72
[2022-02-22] MEDS: MELATONIN 3 MG TABLET PO PRN (21:44)
[2022-02-22] MEDS: CATHETER FLUSH 10 ML SYR IVP SCH (21:45)
[2022-02-23 00:18] VITALS: BP 137/62
[2022-02-23] MEDS: RT-ALBUTEROL/IPRATROPIUM 3 ML (DUONEB) VIAL IH SCH ×2 (03:44→19:40)
[2022-02-23] MEDS: predniSONE 20 MG TAB PO SCH (05:40)
[2022-02-23] MEDS: CATHETER FLUSH 10 ML SYR IVP SCH ×3 (05:40→21:02)
[2022-02-23 05:48] LABS: BASOPHILS % (AUTO) 0 % (0-10); EOSINOPHILS % (AUTO) 0 % (0-10); HEMATOCRIT 39 % (35-52); HEMOGLOBIN 12.4 g/dL (11.5-16.0); LYMPHOCYTES # (AUTO) 2.4 10^3/uL (1.0-4.0); LYMPHOCYTES % (AUTO) 21 % (12-44); MEAN CORPUSCULAR HEMOGLOBIN 30 pg (25-34); MEAN CORPUSCULAR HGB CONC 32 g/dL (32-36); MEAN CORPUSCULAR VOLUME 94 fL (80-99); MEAN PLATELET VOLUME 10.8 fL (9.0-12.2); MONOCYTES # (AUTO) 1.5 10^3/uL (0.0-1.0); MONOCYTES % (AUTO) 13 % (0-12); NEUTROPHILS % (AUTO) 63 % (42-75); PLATELET COUNT 180 10^3/uL (130-400); WHITE BLOOD COUNT 11.2 10^3/uL (4.3-11.0)
[2022-02-23 06:18] LABS: ALBUMIN 3.2 GM/DL (3.2-4.5); BILIRUBIN,TOTAL 0.4 MG/DL (0.1-1.0); CREATININE SERUM 0.74 MG/DL (0.60-1.30); POTASSIUM 3.8 MMOL/L (3.6-5.0)
--- NOTE | 2022-02-23 06:52 | PM&R Progress Note ---
Subjective HPI/CC On Admission Date Seen by Provider: Feb 23, 2022 Time Seen by Provider: 12:00 Subjective/Events-last exam 02/23/2022: Patient much improved Dramatic resolution of confusion Lungs remain stable No other concerns 02/22/2022: Patient doing a lot better Resting well Maintained on oxygen Much improved with transfers Supportive care 02/21/2022: Patient dramatically improved at the bedside No pain is reported Breathing better Slow recovery Labs reviewed Review of Systems General: Fatigue, Malaise Objective Exam Vital Signs Vital Signs Date Time Temp Pulse Resp B/P (MAP) Pulse Ox O2 Delivery O2 Flow Rate FiO2 02/23/22 20:13 36.3 66 16 156/72 (100) 97 Nasal Cannula 2.00 Capillary Refill : General Appearance: WD/WN, Anxious, Chronically ill HEENT: PERRL/EOMI, Normal ENT Inspection, Pharynx Normal Neck: Full Range of Motion, Normal Inspection, Non Tender, Supple, Carotid Bruit Respiratory: Chest Non Tender, No Accessory Muscle Use, No Respiratory Distress, Decreased Breath Sounds Cardiovascular: Regular Rate, Rhythm, No Edema, No Gallop, No JVD, No Murmur, Normal Peripheral Pulses Gastrointestinal: Normal Bowel Sounds, No Organomegaly, No Pulsatile Mass, Non Tender, Soft Back: Normal Inspection, No CVA Tenderness, No Vertebral Tenderness Extremity: Normal Capillary Refill, Normal Inspection, Normal Range of Motion, Non Tender, No Calf Tenderness, No Pedal Edema Neurologic/Psychiatric: Alert, Oriented x3, No Motor/Sensory Deficits, dye range operator cloth II- XII Norm as Tested, Abnormal Gait, Depressed Affect, Motor Weakness (Generalized) Skin: Normal Color, Warm/Dry Lymphatic: No Adenopathy Results/Procedures Lab Laboratory Tests 02/23/22 05:35 Patient resulted labs reviewed. FIM Transfers Therapy Code Descriptions/Definitions Functional [place] Measure: 0=Not Assessed/NA 4=Minimal Assistance 1=Total Assistance 5=Supervision or Setup 2=Maximal Assistance 6=Modified [place] 3=Moderate Assistance 7=Complete IndependenceSCALE: Activities may be completed with or without assistive devices. 0-Xzzkgzrtgz-rcvrzcp completes the activity by him/herself with no assistance from a helper. 5-Set-up or Clean-up Assistance-helper sets up or cleans up; patient completes activity. [place] assists only prior to or following the activity. 4-Supervision or Touching Assistance-helper provides verbal cues and/or touching/steadying and/or contact guard assistance as patient completes activity. Assistance may be provided throughout the activity or intermittently. 3-Partial/Moderate Assistance-helper does LESS THAN HALF the effort. [place] lifts, holds or supports trunk or limbs, but provides less than half the effort. 2-Substantial/Maximal Assistance-helper does MORE THAN HALF the effort. [place] lifts or holds trunk or limbs and provides more than half the effort. 4-[place]jbrmmymk-[place] does ALL the effort. Patient does none of the effort to complete the activity. Or, the assistance of 2 or more helpers is required for the patient to complete the activity. If activity was not attempted, code reason: 7-Patient Refused. 9-Not Applicable-not attempted and the patient did not perform the activity before the current illness, exacerbation or injury. 10-Not Attempted due to Environmental Limitations-(lack of equipment, weather restraints, etc.). 88-Not Attempted due to Medical Conditions or Safety Concerns. Roll Left to Right (QC): 4 Sit to Lying (QC): 3 Sit to Stand (QC): 3 Chair/Zti-fx-Vlbpk Xfer(QC): 3 Car Transfer (QC): 3 Gait Training Does the Patient Walk?: No and Walking Goal IS indicated Walk 10 feet (QC): 3 Walk 50 ft with 2 Turns(QC): 88 Walk 150 ft (QC): 88 Walking 10ft/uneven surface-QC: 3 Gait Assistive Device: FWW Wheelchair Training Does the Pt Use a Wheelchair?: Yes Wheel 50 ft with 2 turns (QC): 1 Wheel 150 ft (QC): 1 Stair Training 1 Step (curb) (QC): 88 4 Steps (QC): 88 12 Steps (QC): 88 Balance Picking up an Object (QC): 88 ADL-Treatment Eating (QC): 6 Oral Hygiene (QC): 6 Shower/Bathe Self (QC): 3 (Min A) Upper Body Dressing (QC): 4 Lower Body Dressing (QC): 3 (Min A) On/Off Footwear (QC): 6 Toileting Hygiene (QC): 3 (Min A ) Assessment/Plan Assessment and Plan Assess & Plan/Chief Complaint Assessment: Acute on chronic respiratory failure with hypoxia and hypercapnia COPD exacerbation currently on taper steroids Influenza A status post BiPAP UTI completed antibiotics HTN Hypomagnesemia Poor prognosis long-term Presumed dementia Delirium improved DVT prophylaxis: Lovenox Smoker Hypercalcemia Plan: O2 Nebs Supportive care Monitor closely Aggressive rehab DNR 02/21/2022: Add PTH to labs Taper down steroids 02/22/2022: Continue aggressive therapy 02/23/2022: Continued supportive care Dramatic improvement (1) Acute respiratory failure with hypoxia and hypercapnia Status: Acute (2) HTN (hypertension) Status: Chronic (3) Acute exacerbation of chronic obstructive pulmonary disease (COPD) Status: Acute (4) Dementia (5) Respiratory failure Status: Acute LORENA OSULLIVAN DO Feb 23, 2022 06:52
[2022-02-23] MEDS: SPIRONOLACTONE 25 MG (ALDACTONE) TAB PO SCH (07:49)
[2022-02-23] MEDS: lisINopril 20 MG (PRINIVIL) TABLET PO SCH ×2 (07:49→21:02)
[2022-02-23] MEDS: SENNA W/DOCUSATE (SENOKOT S) TABLET PO SCH ×2 (07:50→21:02)
[2022-02-23] MEDS: NICOTINE 21 MG (NICODERM) PATCH TD SCH (07:50)
[2022-02-23] MEDS: cloNIDine 0.1 MG (CATAPRES) TAB PO SCH ×2 (07:50→21:02)
[2022-02-23] MEDS: DOCUSATE SODIUM 100 MG (COLACE) CAP PO SCH ×2 (07:50→21:02)
[2022-02-23] MEDS: toPIRamate 25 MG (TOPAMAX) TAB PO SCH (07:50)
[2022-02-23] MEDS: polyethylene glycoL POWDER 17 GM (MIRALAX) PACK PO SCH ×2 (07:53→21:00)
[2022-02-23 07:55] VITALS: BP 147/67
--- NOTE | 2022-02-23 08:53 | Physical Therapy Daily Note ---
PT Daily Note-Current Subjective Patient in recliner pre tx, agrees to PT, has no complaints of pain. Pain Section J - Health Conditions 1. Rarely or not at all 2. Occasionally 3. Frequently 4. Almost constantly 8. Unable to answer Pain Effect on Sleep: 1 Pain Interference with Therapy: 1 Pain Interference w/Day-to-Day: 1 Appearance Patient in bed post tx with nurse call, phone, tray, bed alarm on. Mental Status Patient Orientation: Person, Place, Situation Attachments: Oxygen Transfers SCALE: Activities may be completed with or without assistive devices. 8-Pfksehobfe-gaxhrdh completes the activity by him/herself with no assistance from a helper. 5-Set-up or Clean-up Assistance-helper sets up or cleans up; patient completes activity. [place] assists only prior to or following the activity. 4-Supervision or Touching Assistance-helper provides verbal cues and/or touching/steadying and/or contact guard assistance as patient completes activity. Assistance may be provided throughout the activity or intermittently. 3-Partial/Moderate Assistance-helper does LESS THAN HALF the effort. [place] lifts, holds or supports trunk or limbs, but provides less than half the effort. 2-Substantial/Maximal Assistance-helper does MORE THAN HALF the effort. [place] lifts or holds trunk or limbs and provides more than half the effort. 6-Wzqzdvkcq-lqmugb does ALL the effort. Patient does none of the effort to complete the activity. Or, the assistance of 2 or more helpers is required for the patient to complete the activity. If activity was not attempted, code reason: 7-Patient Refused. 9-Not Applicable-not attempted and the patient did not perform the activity before the current illness, exacerbation or injury. 10-Not Attempted due to Environmental Limitations-(lack of equipment, weather restraints, etc.). 88-Not Attempted due to Medical Conditions or Safety Concerns. Sit to Stand (QC): 4 Chair/Ljv-hj-Zszqn Xfer(QC): 4 SBA, occasional cues for safety or positioning. Patient was toileted after getting back to her room, SBA with toilet transfer, she was able to manage her brief on her own. Gait Training Distance: 120'x2 Walk 10 feet (QC): 4 Walk 50 ft with 2 Turns(QC): 4 Gait Persons Needed: 1 Gait Assistive Device: FWW slow ambulation, cues for direction Exercises Standing: Heel/toe raises, Marching, Mini squats Standing Reps: 15 LAQ alternating for 5 min NuStep Minutes: 15 NuStep Workload: 4 Treatments bed mobility and transfers, ambulation, strengthening, toileting Assessment Current Status: Fair Progress improved general mobility PT Short Term Goals Short Term Goals Time Frame: Feb 27, 2022 Roll Left & Right: 4 Sit to lyin (SBA) Lying to sitting on side of be: 4 (SBA) Sit to stand: 4 (CGA) Chair/cqu-qs-vgbvd transfer: 4 (CGA) Walk 10 feet: 4 (CGA) Walk 50 feet with two turns: 4 (CGA) PT Snf Goals Snf Goals PT Snf Goals Time Frame: Mar 06, 2022 Roll Left & Right (QC): 6 Sit to Lying (QC): 6 Lying-Sitting on Side/Bed(QC): 6 Sit to Stand (QC): 4 (SBA) Chair/Vcl-iv-Uiyip Xfer(QC): 4 (SBA) Toilet Transfer (QC): 4 (SBA) Car Transfer (QC): 4 (SBA) Does the Patient Walk: Yes Walk 10 feet (QC): 4 (SBA) Walk 50ft with 2 Turns (QC): 4 (SBA) Walk 150 ft (QC): 4 (SBA) Walking 10ft on Uneven Surface: 4 (SBA) 1 Step (curb) (QC): 4 (CGA) 4 Steps (QC): 4 (CGA) 12 Steps (QC): 88 Picking up an Object (QC): 4 (CGA using a durable medical equipment technician) Wheel 50 feet with 2 turns (QC: 9 Wheel 150 feet: 9 PT Plan Problem List Problem List: Activity Tolerance, Functional Strength, Safety, Balance, Gait, Transfer, Bed Mobility, ROM Treatment/Plan Treatment Plan: Continue Plan of Care Treatment Plan: Bed Mobility, Education, Functional Activity Lou, Functional Strength, Group Therapy, Gait, Safety, Therapeutic Exercise, Transfers Treatment Duration: Mar 06, 2022 Frequency: At least 5 of 7 days/Wk (IRF) Estimated Hrs Per Day: 1.5 hours per day Patient and/or Family Agrees t: Yes Safety Risks/Education Patient Education: Gait Training, Transfer Techniques, Correct Positioning, Safety Issues Teaching Recipient: Patient Teaching Methods: Demonstration, Discussion Response to Teaching: Reinforcement Needed Time Time In: 0800 Time Out: 0900 DATE: Feb 23, 2022 Total Billed Treatment Time: 60 Total Billed Treatment 1 visit EX 30' FA 30' STEFFANIE ANGLIN PT Feb 23, 2022 08:53
[2022-02-23 09:00] VITALS: BP 147/67
[2022-02-23] MEDS: PATCH REMOVAL TP SCH (09:00)
--- NOTE | 2022-02-23 11:16 | Occupational Ther Daily Note ---
OT Current Status-Daily Note Subjective Pt in bed, agreeable to OT tx. Pt states she is tired today. Mental Status/Objective Patient Orientation: Person, Place, Situation Attachments: Oxygen ADL-Treatment Therapy Code Descriptions/Definitions Functional [place] Measure: 0=Not Assessed/NA 4=Minimal Assistance 1=Total Assistance 5=Supervision or Setup 2=Maximal Assistance 6=Modified [place] 3=Moderate Assistance 7=Complete IndependenceSCALE: Activities may be completed with or without assistive devices. 0-Yyatouawrx-lwvazkv completes the activity by him/herself with no assistance from a helper. 5-Set-up or Clean-up Assistance-helper sets up or cleans up; patient completes activity. [place] assists only prior to or following the activity. 4-Supervision or Touching Assistance-helper provides verbal cues and/or touching/steadying and/or contact guard assistance as patient completes activity. Assistance may be provided throughout the activity or intermittently. 3-Partial/Moderate Assistance-helper does LESS THAN HALF the effort. [place] lifts, holds or supports trunk or limbs, but provides less than half the effort. 2-Substantial/Maximal Assistance-helper does MORE THAN HALF the effort. [place] lifts or holds trunk or limbs and provides more than half the effort. 7-Vykkkqyvb-rokvha does ALL the effort. Patient does none of the effort to complete the activity. Or, the assistance of 2 or more helpers is required for the patient to complete the activity. If activity was not attempted, code reason: 7-Patient Refused. 9-Not Applicable-not attempted and the patient did not perform the activity before the current illness, exacerbation or injury. 10-Not Attempted due to Environmental Limitations-(lack of equipment, weather restraints, etc.). 88-Not Attempted due to Medical Conditions or Safety Concerns. Oral Hygiene (QC): 4 (SBA standing at sink) Shower/Bathe Self (QC): 4 (SBA ) Upper Body Dressing (QC): 5 (set up, assist only with O2 line) Lower Body Dressing (QC): 4 (SBA) On/Off Footwear: 3 (Pt able to doff/don gripper socks with set up. Assistance only with TedHose) Toileting Hygiene (QC): 4 (SBA) Toilet Transfer (QC): 4 (SBA) Other Treatment Pt in bed, transferred supine to sit EOB, SBA. Pt used FWW to transfer into bathroom and onto toilet, SBA. Pt completed toileting, SBA, then transferred to SC. Pt doffed clothes, completed shower, then donned clothes. Pt stood at sink to complete oral care, during tasks, states she needs to use toilet. Pt transferred to toilet, completed toileting, then returned to sink to complete oral care. Pt transferred to recliner. Post tx, pt in recliner, call light in reach and all needs met. Chair alarm activated. Education OT Patient Education: Correct positioning, Energy conservation, Modified ADL techniques, Progress toward Goal/Update tx plan, Purpose of tx/functional activities, Rehab process Teaching Recipient: Patient Teaching Methods: Discussion Response to Teaching: Verbalize Understanding, Reinforcement Needed OT Short Term Goals Short Term Goals Time Frame: Mar 02, 2022 Toileting hygiene: 4 Shower/bathe self: 4 Lower body dressin OT Alf Goals Forestry Extension Specialist Goals Time Frame: Mar 13, 2022 Acute change in mental status: 0 Inattention: 0 Disorganized thinkin Altered level of consciousness: 0 Eating (QC): 6 Oral Hygiene (QC): 6 Toileting Hygiene (QC): 6 Shower/Bathe Self (QC): 6 Upper Body Dressing (QC): 6 Lower Body Dressing (QC): 6 On/Off Footwear (QC): 6 Additional Goals: 1-Demonstrate ADL Tasks, 2-Verbalize Understanding, 3- ImproveStrength/Lou 1=Demonstrate adherence to instructed precautions during ADL tasks. 2=Patient will verbalize/demonstrate understanding of assistive dev ices/modifications for ADL. 3=Patient will improve strength/tolerance for activity to enable patient to perform ADL's. OT Education/Plan Problem List/Assessment Assessment: Decreased Activ Tolerance, Decreased UE Strength, Impaired Funct Balance, Impaired I ADL's, Impaired Self-Care Skills Discharge Recommendations Plan/Recommendations: Continue POC Treatment Plan/Plan of Care Patient would benefit from OT for education, treatment and training to promote independence in ADL's, mobility, safety and/or upper extremity function for ADL 's. Plan of Care: ADL Retraining, Functional Mobility, Group Exercise/Act as Ind, UE Funct Exercise/Act Treatment Duration: Mar 13, 2022 Frequency: At least 5 of 7 days/Wk (IRF) Estimated Hrs Per Day: 1.5 hours per day Agreement: Yes Rehab Potential: Guarded Time Start Time: 10:15 Stop Time: 11:15 DATE: Feb 23, 2022 Total Time Billed (hr/min): 60 Billed Treatment Time 1, ADL 4 SAMMY BRENNER OT Feb 23, 2022 11:15
--- NOTE | 2022-02-23 14:06 | Physical Therapy Daily Note ---
PT Daily Note-Current Subjective Patient agrees to PT. Pain Section J - Health Conditions 1. Rarely or not at all 2. Occasionally 3. Frequently 4. Almost constantly 8. Unable to answer Pain Effect on Sleep: 1 Pain Interference with Therapy: 1 Pain Interference w/Day-to-Day: 1 Mental Status Patient Orientation: Normal For Age Attachments: Oxygen Transfers SCALE: Activities may be completed with or without assistive devices. 9-Kefkpbqozs-oulwcjk completes the activity by him/herself with no assistance from a helper. 5-Set-up or Clean-up Assistance-helper sets up or cleans up; patient completes activity. [place] assists only prior to or following the activity. 4-Supervision or Touching Assistance-helper provides verbal cues and/or touching/steadying and/or contact guard assistance as patient completes activity. Assistance may be provided throughout the activity or intermittently. 3-Partial/Moderate Assistance-helper does LESS THAN HALF the effort. [place] lifts, holds or supports trunk or limbs, but provides less than half the effort. 2-Substantial/Maximal Assistance-helper does MORE THAN HALF the effort. [place] lifts or holds trunk or limbs and provides more than half the effort. 7-Tdnflulmr-itoiqr does ALL the effort. Patient does none of the effort to complete the activity. Or, the assistance of 2 or more helpers is required for the patient to complete the activity. If activity was not attempted, code reason: 7-Patient Refused. 9-Not Applicable-not attempted and the patient did not perform the activity before the current illness, exacerbation or injury. 10-Not Attempted due to Environmental Limitations-(lack of equipment, weather restraints, etc.). 88-Not Attempted due to Medical Conditions or Safety Concerns. Sit to Stand (QC): 4 Gait Training Distance: 250' x 3 Gait Assistive Device: FWW slow, steady, functional gait sequence with no deviation Exercises Seated Therapy Exercises: Ankle pumps, Long arc quads, Hip flexion Seated Reps: 15 NuStep Minutes: 10 NuStep Workload: 5 (to improve strength and functional endurance for daily living) Assessment Patient tolerated treatment well and improving with treatment plan. PT Short Term Goals Short Term Goals Time Frame: Feb 27, 2022 Roll Left & Right: 4 Sit to lyin (SBA) Lying to sitting on side of be: 4 (SBA) Sit to stand: 4 (CGA) Chair/msx-as-jlmib transfer: 4 (CGA) Walk 10 feet: 4 (CGA) Walk 50 feet with two turns: 4 (CGA) PT Fci Goals Explosives Mixer Operator Goals PT Explosives Mixer Operator Goals Time Frame: Mar 06, 2022 Roll Left & Right (QC): 6 Sit to Lying (QC): 6 Lying-Sitting on Side/Bed(QC): 6 Sit to Stand (QC): 4 (SBA) Chair/Mll-fu-Cxoum Xfer(QC): 4 (SBA) Toilet Transfer (QC): 4 (SBA) Car Transfer (QC): 4 (SBA) Does the Patient Walk: Yes Walk 10 feet (QC): 4 (SBA) Walk 50ft with 2 Turns (QC): 4 (SBA) Walk 150 ft (QC): 4 (SBA) Walking 10ft on Uneven Surface: 4 (SBA) 1 Step (curb) (QC): 4 (CGA) 4 Steps (QC): 4 (CGA) 12 Steps (QC): 88 Picking up an Object (QC): 4 (CGA using a solar sales energy advisor) Wheel 50 feet with 2 turns (QC: 9 Wheel 150 feet: 9 PT Plan Treatment/Plan Treatment Plan: Continue Plan of Care Treatment Plan: Bed Mobility, Education, Functional Activity Lou, Functional Strength, Group Therapy, Gait, Safety, Therapeutic Exercise, Transfers Treatment Duration: Mar 06, 2022 Frequency: At least 5 of 7 days/Wk (IRF) Estimated Hrs Per Day: 1.5 hours per day Patient and/or Family Agrees t: Yes Time Time In: 1300 Time Out: 1330 DATE: Feb 23, 2022 Total Billed Treatment Time: 30 Total Billed Treatment 1 visit EX 12 min GT 18 min AMY TRUJILLO PT Feb 23, 2022 14:06
--- NOTE | 2022-02-23 14:10 | Occupational Ther Daily Note ---
OT Current Status-Daily Note Subjective No pain reported. Mental Status/Objective Patient Orientation: Person, Place Attachments: Oxygen ADL-Treatment Therapy Code Descriptions/Definitions Functional [place] Measure: 0=Not Assessed/NA 4=Minimal Assistance 1=Total Assistance 5=Supervision or Setup 2=Maximal Assistance 6=Modified [place] 3=Moderate Assistance 7=Complete IndependenceSCALE: Activities may be completed with or without assistive devices. 6-Cggrwirbsx-gagtgrz completes the activity by him/herself with no assistance from a helper. 5-Set-up or Clean-up Assistance-helper sets up or cleans up; patient completes activity. [place] assists only prior to or following the activity. 4-Supervision or Touching Assistance-helper provides verbal cues and/or touching/steadying and/or contact guard assistance as patient completes activity. Assistance may be provided throughout the activity or intermittently. 3-Partial/Moderate Assistance-helper does LESS THAN HALF the effort. [place] lifts, holds or supports trunk or limbs, but provides less than half the effort. 2-Substantial/Maximal Assistance-helper does MORE THAN HALF the effort. [place] lifts or holds trunk or limbs and provides more than half the effort. 1-Rhnxsxayd-sdnngs does ALL the effort. Patient does none of the effort to complete the activity. Or, the assistance of 2 or more helpers is required for the patient to complete the activity. If activity was not attempted, code reason: 7-Patient Refused. 9-Not Applicable-not attempted and the patient did not perform the activity before the current illness, exacerbation or injury. 10-Not Attempted due to Environmental Limitations-(lack of equipment, weather restraints, etc.). 88-Not Attempted due to Medical Conditions or Safety Concerns. Toileting Hygiene (QC): 4 (SBA to doff/don pants and cleanse vasu area.) Toilet Transfer (QC): 4 (CGA to toilet self.) Other Treatment Pt. completed 10minutes on arm bike at mod resistance and slow pace. Worked on increasing overall endurance/strength. Pt. verbalizes that she has to use the bathroom. Ambulated with walker and CGA to her room. Completed toileting task with SBA. Stood at sink and washed hands. Ambulated around rehab unit, approximately 200 feet with walker and CGA/SBA. Pt. transferred to bed with SBA. All needs met. Education OT Patient Education: Correct positioning, Exercise program, Modified ADL techniques, Progress toward Goal/Update tx plan, Purpose of tx/functional activities, Reviewed precautions, Rehab process, Transfer techniques Teaching Recipient: Patient Teaching Methods: Demonstration, Discussion Response to Teaching: Verbalize Understanding, Return Demonstration OT Short Term Goals Short Term Goals Time Frame: Mar 02, 2022 Toileting hygiene: 4 Shower/bathe self: 4 Lower body dressin OT Security Services Specialist Goals Correction Goals Time Frame: Mar 13, 2022 Acute change in mental status: 0 Inattention: 0 Disorganized thinkin Altered level of consciousness: 0 Eating (QC): 6 Oral Hygiene (QC): 6 Toileting Hygiene (QC): 6 Shower/Bathe Self (QC): 6 Upper Body Dressing (QC): 6 Lower Body Dressing (QC): 6 On/Off Footwear (QC): 6 Additional Goals: 1-Demonstrate ADL Tasks, 2-Verbalize Understanding, 3- ImproveStrength/Lou 1=Demonstrate adherence to instructed precautions during ADL tasks. 2=Patient will verbalize/demonstrate understanding of assistive devices/modifications for ADL. 3=Patient will improve strength/tolerance for activity to enable patient to perform ADL's. OT Education/Plan Problem List/Assessment Assessment: Decreased Activ Tolerance, Impaired I ADL's, Impaired Self-Care Skills Discharge Recommendations Plan/Recommendations: Continue POC Therapy Discharge Recommendati: Post Acute OT Treatment Plan/Plan of Care Treatment,Training & Education: Yes Patient would benefit from OT for education, treatment and training to promote independence in ADL's, mobility, safety and/or upper extremity function for ADL's. Plan of Care: ADL Retraining, Functional Mobility, Group Exercise/Act as Ind, UE Funct Exercise/Act Treatment Duration: Mar 13, 2022 Frequency: At least 5 of 7 days/Wk (IRF) Estimated Hrs Per Day: 1.5 hours per day Agreement: Yes Rehab Potential: Fair Time Start Time: 13:30 Stop Time: 14:00 DATE: Feb 23, 2022 Total Time Billed (hr/min): 30 Billed Treatment Time 1, ADL x 15minutes, Ex x 15minutes TALITA MARTINEZ OT Feb 23, 2022 14:10
[2022-02-23] MEDS: ENOXAPARIN 40 MG/0.4 ML (LOVENOX) SYR SC SCH (17:20)
[2022-02-23 20:13] VITALS: BP 156/72
--- NOTE | 2022-02-24 05:08 | PM&R Progress Note ---
Subjective HPI/CC On Admission Date Seen by Provider: Feb 24, 2022 Time Seen by Provider: 09:00 Subjective/Events-last exam 02/24/2022: Dramatic improvement Arterial ultrasound will be done today Maintain on oxygen Supportive care will continue 02/23/2022: Patient much improved Dramatic resolution of confusion Lungs remain stable No other concerns 02/22/2022: Patient doing a lot better Resting well Maintained on oxygen Much improved with transfers Supportive care 02/21/2022: Patient dramatically improved at the bedside No pain is reported Breathing better Slow recovery Labs reviewed Review of Systems General: Fatigue, Malaise Objective Exam Vital Signs Vital Signs Date Time Temp Pulse Resp B/P (MAP) Pulse Ox O2 Delivery O2 Flow Rate FiO2 02/24/22 22:59 70 128/66 (86) 02/24/22 20:47 36.4 20 96 Nasal Cannula 2.00 Capillary Refill : General Appearance: WD/WN, Anxious, Chronically ill HEENT: PERRL/EOMI, Normal ENT Inspection, Pharynx Normal Neck: Full Range of Motion, Normal Inspection, Non Tender, Supple, Carotid Bruit Respiratory: Chest Non Tender, No Accessory Muscle Use, No Respiratory Dist ress, Decreased Breath Sounds Cardiovascular: Regular Rate, Rhythm, No Edema, No Gallop, No JVD, No Murmur, Normal Peripheral Pulses Gastrointestinal: Normal Bowel Sounds, No Organomegaly, No Pulsatile Mass, Non Tender, Soft Back: Normal Inspection, No CVA Tenderness, No Vertebral Tenderness Extremity: Normal Capillary Refill, Normal Inspection, Normal Range of Motion, Non Tender, No Calf Tenderness, No Pedal Edema Neurologic/Psychiatric: Alert, Oriented x3, No Motor/Sensory Deficits, corrugator supervisor II- XII Norm as Tested, Abnormal Gait, Depressed Affect, Motor Weakness (Generalized) Skin: Normal Color, Warm/Dry Lymphatic: No Adenopathy Results/Procedures Lab Patient resulted labs reviewed. FIM Transfers Therapy Code Descriptions/Definitions Functional [place] Measure: 0=Not Assessed/NA 4=Minimal Assistance 1=Total Assistance 5=Supervision or Setup 2=Maximal Assistance 6=Modified [place] 3=Moderate Assistance 7=Complete IndependenceSCALE: Activities may be completed with or without assistive devices. 6-Xdflzpeuwv-isyoqxd completes the activity by him/herself with no assistance from a helper. 5-Set-up or Clean-up Assistance-helper sets up or cleans up; patient completes activity. [place] assists only prior to or following the activity. 4-Supervision or Touching Assistance-helper provides verbal cues and/or touching/steadying and/or contact guard assistance as patient completes activity. Assistance may be provided throughout the activity or intermittently. 3-Partial/Moderate Assistance-helper does LESS THAN HALF the effort. [place] lifts, holds or supports trunk or limbs, but provides less than half the effort. 2-Substantial/Maximal Assistance-helper does MORE THAN HALF the effort. [place] lifts or holds trunk or limbs and provides more than half the effort. 7-Vbkrufwfa-mknvpg does ALL the effort. Patient does none of the effort to complete the activity. Or, the assistance of 2 or more helpers is required for the patient to complete the activity. If activity was not attempted, code reason: 7-Patient Refused. 9-Not Applicable-not attempted and the patient did not perform the activity before the current illness, exacerbation or injury. 10-Not Attempted due to Environmental Limitations-(lack of equipment, weather restraints, etc.). 88-Not Attempted due to Medical Conditions or Safety Concerns. Roll Left to Right (QC): 4 Sit to Lying (QC): 3 Sit to Stand (QC): 4 Chair/Brk-bg-Zjieg Xfer(QC): 4 Car Transfer (QC): 3 Gait Training Does the Patient Walk?: No and Walking Goal IS indicated Distance: 250' x 3 Walk 10 feet (QC): 4 Walk 50 ft with 2 Turns(QC): 4 Walk 150 ft (QC): 88 Walking 10ft/uneven surface-QC: 3 Gait Persons Needed: 1 Gait Assistive Device: FWW Wheelchair Training Does the Pt Use a Wheelchair?: Yes Wheel 50 ft with 2 turns (QC): 1 Wheel 150 ft (QC): 1 Stair Training 1 Step (curb) (QC): 88 4 Steps (QC): 88 12 Steps (QC): 88 Balance Picking up an Object (QC): 88 ADL-Treatment Eating (QC): 6 Oral Hygiene (QC): 4 (SBA standing at sink) Shower/Bathe Self (QC): 4 (SBA ) Upper Body Dressing (QC): 5 (set up, assist only with O2 line) Lower Body Dressing (QC): 4 (SBA) On/Off Footwear (QC): 3 (Pt able to doff/don gripper socks with set up. Assistance only with TedHose) Toileting Hygiene (QC): 4 (SBA to doff/don pants and cleanse vasu area.) Toilet Transfer (QC): 4 (CGA to toilet self.) Assessment/Plan Assessment and Plan Assess & Plan/Chief Complaint Assessment: Acute on chronic respiratory failure with hypoxia and hypercapnia COPD exacerbation currently on taper steroids Influenza A status post BiPAP UTI completed antibiotics HTN Hypomagnesemia Poor prognosis long-term Presumed dementia Delirium improved DVT prophylaxis: Lovenox Smoker Hypercalcemia with elevated PTH consistent with hyperparathyroidism PVD obtaining arterial ultrasound on 02/24/2022 Plan: O2 Nebs Supportive care Monitor closely Aggressive rehab DNR 02/21/2022: Add PTH to labs Taper down steroids 02/22/2022: Continue aggressive therapy 02/23/2022: Continued supportive care Dramatic improvement 02/24/2022: Arterial ultrasound Supportive care (1) Acute respiratory failure with hypoxia and hypercapnia Status: Acute (2) HTN (hypertension) Status: Chronic (3) Acute exacerbation of chronic obstructive pulmonary disease (COPD) Status: Acute (4) Dementia (5) Respiratory failure Status: Acute LORENA OSULLIVAN DO Feb 24, 2022 05:08
[2022-02-24] MEDS: predniSONE 20 MG TAB PO SCH (06:46)
[2022-02-24] MEDS: CATHETER FLUSH 10 ML SYR IVP SCH ×3 (06:47→21:40)
[2022-02-24] MEDS: RT-ALBUTEROL/IPRATROPIUM 3 ML (DUONEB) VIAL IH SCH (07:26)
[2022-02-24 07:29] VITALS: BP 165/77
[2022-02-24] MEDS: lisINopril 20 MG (PRINIVIL) TABLET PO SCH ×2 (08:42→21:31)
[2022-02-24] MEDS: cloNIDine 0.1 MG (CATAPRES) TAB PO SCH ×2 (08:43→21:31)
[2022-02-24] MEDS: PATCH REMOVAL TP SCH (08:43)
[2022-02-24] MEDS: toPIRamate 25 MG (TOPAMAX) TAB PO SCH (08:43)
[2022-02-24] MEDS: DOCUSATE SODIUM 100 MG (COLACE) CAP PO SCH ×2 (08:43→21:31)
[2022-02-24] MEDS: polyethylene glycoL POWDER 17 GM (MIRALAX) PACK PO SCH ×2 (08:43→21:43)
[2022-02-24] MEDS: SPIRONOLACTONE 25 MG (ALDACTONE) TAB PO SCH (08:43)
[2022-02-24] MEDS: SENNA W/DOCUSATE (SENOKOT S) TABLET PO SCH ×2 (08:43→21:31)
[2022-02-24] MEDS: NICOTINE 21 MG (NICODERM) PATCH TD SCH (08:43)
--- NOTE | 2022-02-24 09:39 | Physical Therapy Daily Note ---
PT Daily Note-Current Subjective Pt sitting in recliner upon arrival. Pt agrees to PT. Pain Location: No Pain Reported Section J - Health Conditions 1. Rarely or not at all 2. Occasionally 3. Frequently 4. Almost constantly 8. Unable to answer Pain Effect on Sleep: 1 Pain Interference with Therapy: 1 Pain Interference w/Day-to-Day: 1 Mental Status Patient Orientation: Person, Place, Time, Situation Attachments: Oxygen (2L) Transfers SCALE: Activities may be completed with or without assistive devices. 6-Bsczpzydfj-jwhyxdw completes the activity by him/herself with no assistance from a helper. 5-Set-up or Clean-up Assistance-helper sets up or cleans up; patient completes activity. [place] assists only prior to or following the activity. 4-Supervision or Touching Assistance-helper provides verbal cues and/or touching/steadying and/or contact guard assistance as patient completes activity. Assistance may be provided throughout the activity or intermittently. 3-Partial/Moderate Assistance-helper does LESS THAN HALF the effort. [place] lifts, holds or supports trunk or limbs, but provides less than half the effort. 2-Substantial/Maximal Assistance-helper does MORE THAN HALF the effort. [place] lifts or holds trunk or limbs and provides more than half the effort. 0-Srkyimcaq-sulseo does ALL the effort. Patient does none of the effort to complete the activity. Or, the assistance of 2 or more helpers is required for the patient to complete the activity. If activity was not attempted, code reason: 7-Patient Refused. 9-Not Applicable-not attempted and the patient did not perform the activity before the current illness, exacerbation or injury. 10-Not Attempted due to Environmental Limitations-(lack of equipment, weather restraints, etc.). 88-Not Attempted due to Medical Conditions or Safety Concerns. Sit to Stand (QC): 5 Toilet Transfer (QC): 5 Weight Bearing Full Weight Bearing Full Weight Bearing Gait Training Does the Patient Walk?: Yes Distance: 150' x2 Walk 10 feet (QC): 5 Walk 50 ft with 2 Turns(QC): 5 Walk 150 ft (QC): 5 Gait Assistive Device: FWW Wheelchair Training Does the Pt Use a Wheelchair?: No Exercises Supine Ex: Ankle pumps, Quad Set, Glut sets, Heel Slides, Hip abd/add Supine Reps: 10 Seated Therapy Exercises: Ankle pumps, Long arc quads, Hip flexion, Glut set Seated Reps: 15 Standing: Hip Abduction, Hamstring curls, Heel/toe raises, Marching, Mini squats Standing Reps: 15 NuStep Minutes: 15 NuStep Workload: 5 Treatments TF to standing and amb. in hallway. Pt uses NuStep then takes short RB. Pt completes Standing EX at //bars with a couple short RB. Pt asks to return to room to use BR. After finishing, pt returns to recliner to review issued written HEP for Supine & Seated EX. Pt resting at end of tx. Assessment Current Status: Good Progress Pt takes a couple short RB as needed. O2 is monitored as pt wanting to know when can be weaning off O2 at day time. Per Dr Montoya, O2 will be monitored and weaned off when appropriate. O2 is at 97% after second walk. PT Short Term Goals Short Term Goals Time Frame: Feb 27, 2022 Roll Left & Right: 4 Sit to lyin (SBA) Lying to sitting on side of be: 4 (SBA) Sit to stand: 4 (CGA) Chair/lgb-ge-zkozd transfer: 4 (CGA) Walk 10 feet: 4 (CGA) Walk 50 feet with two turns: 4 (CGA) PT Shake Feeder Goals Custodial Goals PT Custodial Goals Time Frame: Mar 06, 2022 Roll Left & Right (QC): 6 Sit to Lying (QC): 6 Lying-Sitting on Side/Bed(QC): 6 Sit to Stand (QC): 4 (SBA) Chair/Esw-cr-Qckmu Xfer(QC): 4 (SBA) Toilet Transfer (QC): 4 (SBA) Car Transfer (QC): 4 (SBA) Does the Patient Walk: Yes Walk 10 feet (QC): 4 (SBA) Walk 50ft with 2 Turns (QC): 4 (SBA) Walk 150 ft (QC): 4 (SBA) Walking 10ft on Uneven Surface: 4 (SBA) 1 Step (curb) (QC): 4 (CGA) 4 Steps (QC): 4 (CGA) 12 Steps (QC): 88 Picking up an Object (QC): 4 (CGA using a balance screwhead polisher) Wheel 50 feet with 2 turns (QC: 9 Wheel 150 feet: 9 PT Plan Treatment/Plan Treatment Plan: Continue Plan of Care Treatment Plan: Bed Mobility, Education, Functional Activity Lou, Functional Strength, Group Therapy, Gait, Safety, Therapeutic Exercise, Transfers Treatment Duration: Mar 06, 2022 Frequency: At least 5 of 7 days/Wk (IRF) Estimated Hrs Per Day: 1.5 hours per day Patient and/or Family Agrees t: Yes Safety Risks/Education Patient Education: Issued Written HEP Teaching Recipient: Patient Teaching Methods: Demonstration, Discussion Response to Teaching: Verbalize Understanding, Return Demonstration Time Time In: 815 Time Out: 930 DATE: Feb 24, 2022 Total Billed Treatment Time: 75 Total Billed Treatment 1, GT (20m), FA (10m) & EX x3 (45m) KING CLAY PTA Feb 24, 2022 09:39
--- NOTE | 2022-02-24 10:19 | ST Cognitive Linguistic Eval ---
Speech Evaluation-General Medical Diagnosis Acute exacerbation of COPD with respiratory distress, flu A Onset Date: Feb 13, 2022 Medical History Pertinent Medical History: CABG, CAD, COPD, GERD, HTN, Smoking Current History The patient was admitted on 02/12/2022 due to shortness of breath, productive cough, fever/chills, and sore throat. The patient remained intubated for three days prior to being transferred to the ARU on 02/20/22. Reviewed History: Yes Social History Current Living Status: Spouse Speech PLF-Current Status Prior Level of Function The patient and the patient's denied current concerns with the patient's cognitive, speech, language, or swallowing skills. Per patient (and ), the patient is displaying baseline skills. Subjective The patient was seated upright in her recliner, awake and alert, upon entrance to her room by the clinician. The patient greeted the clinician and was agreeable to participation in the cognitive linguistic assessment. The patient's remained present at bedside throughout the assessment. Language Eval: Auditory Comprehends Simple Yes/No Ques: Functional Indent/Objects Multiple Mendez: Functional Follows 1-Step Commands: Functional Follows General Conversations: Functional Language Eval: Verbal Language Completes Spontaneous Greeting: Functional Produces Auto, Serial Info: Functional Word Finding: Mild Requests Basic Needs: Functional States Basic Personal Info: Functional Cognitive Patient Orientation The patient was independently oriented to self, location, month, day of the week, date and year. Objective Cognitive Domain Attention: WNL Memory: Mild Problem Solving: Mild Composite Severity Rating: Mild Clock Drawing Severity Rating: Mild Objective Formal/Standardized Tests [facility] Mental Status Exam (UMS) Results The patient demonstrated a result of +24/30 on the SLUMS correlating to a mild neurocognitive impairment. Oral Motor/Speech Production The patient does not display dysarthria or apraxia of speech. The patient is 100% intelligible in known and unknown contexts. Impression The patient demonstrated a mild neurocognitive impairment in the areas of memory and problem solving. The patient (and the patient's ) reported the patient is functioning at baseline cognitive function an do not have concerns at this time. Speech pathology asked the patient and the patient's to please notify the staff if changes or concerns with the patient's cognition arises. Speech-Plan Treatment Plan Speech Therapy Treatment Plan: Discontinue ST Treatment Duration: Feb 20, 2022 Frequency: 1 time per week Estimated Hrs Per Day: .5 hour per day Rehab Potential: Fair Safety Risks/Education Teaching Recipient: Patient, Significant Other Teaching Methods: Discussion Response to Teaching: Verbalize Understanding Education Topics Provided: Results, Recommendations, Plan of Care Time Speech Therapy Time In: 09:30 Speech Therapy Time Out: 10:00 DATE: Feb 24, 2022 Total Billed Time: 30 Billed Treatment Time 1, ANGUS YOUSSEF [facility]IZABETH ST Feb 24, 2022 10:19
--- NOTE | 2022-02-24 10:33 | Occupational Ther Daily Note ---
OT Current Status-Daily Note Subjective Pt up in recliner, present. Pt agreeable to OT Tx with minimal encouragement due to her being present. Pt states she feels like she is ready to discharge home today if we let her. Mental Status/Objective Patient Orientation: Normal For Age Attachments: Oxygen (2L) ADL-Treatment Therapy Code Descriptions/Definitions Functional [place] Measure: 0=Not Assessed/NA 4=Minimal Assistance 1=Total Assistance 5=Supervision or Setup 2=Maximal Assistance 6=Modified [place] 3=Moderate Assistance 7=Complete IndependenceSCALE: Activities may be completed with or without assistive devices. 4-Ksvncawqsc-xzygwqz completes the activity by him/herself with no assistance from a helper. 5-Set-up or Clean-up Assistance-helper sets up or cleans up; patient completes activity. [place] assists only prior to or following the activity. 4-Supervision or Touching Assistance-helper provides verbal cues and/or touching/steadying and/or contact guard assistance as patient completes activity. Assistance may be provided throughout the activity or intermittently. 3-Partial/Moderate Assistance-helper does LESS THAN HALF the effort. [place] lifts, holds or supports trunk or limbs, but provides less than half the effort. 2-Substantial/Maximal Assistance-helper does MORE THAN HALF the effort. [place] lifts or holds trunk or limbs and provides more than half the effort. 0-Vtwjtsgyp-jnnujb does ALL the effort. Patient does none of the effort to complete the activity. Or, the assistance of 2 or more helpers is required for the patient to complete the activity. If activity was not attempted, code reason: 7-Patient Refused. 9-Not Applicable-not attempted and the patient did not perform the activity before the current illness, exacerbation or injury. 10-Not Attempted due to Environmental Limitations-(lack of equipment, weather restraints, etc.). 88-Not Attempted due to Medical Conditions or Safety Concerns. Toileting Hygiene (QC): 6 Toilet Transfer (QC): 6 Other Treatment Pt in recliner, used FWW to transfer into bathroom and onto toilet. OT assisted only with managing O2 tank. Pt able to toilet independently. Pt performed functional mobility to therapy gym using FWW, OT assisted with O2 tank. OT tx focused on increasing BUE Strength and activity tolerance. Pt completed x10 mins on arm bike, 20 Watt resistance, 1 rest break, slow pace. O2 saturation at 97% after task, 2 L O2 NC. Pt then removed beads from moderate resistance (green) theraputty, pt able to locate all beads without cues. Pt then placed/removed 1" pegs from foam pegboard, alternating hands. Pt able to complete x100 pegs. Pt returned to her room using FWW, OT assist only with O2 tank, transferring to recliner. Post tx, pt in recliner, call light in reach and all needs met, chair alarm activated. Education OT Patient Education: Correct positioning, Energy conservation, Modified ADL techniques, Progress toward Goal/Update tx plan, Purpose of tx/functional activities, Rehab process Teaching Recipient: Patient Teaching Methods: Discussion Response to Teaching: Verbalize Understanding OT Short Term Goals Short Term Goals Time Frame: Mar 02, 2022 Toileting hygiene: 4 Shower/bathe self: 4 Lower body dressin OT Concrete Tile Machine Operator Goals Concrete Tile Machine Operator Goals Time Frame: Mar 13, 2022 Acute change in mental status: 0 Inattention: 0 Disorganized thinkin Altered level of consciousness: 0 Eating (QC): 6 Oral Hygiene (QC): 6 Toileting Hygiene (QC): 6 Shower/Bathe Self (QC): 6 Upper Body Dressing (QC): 6 Lower Body Dressing (QC): 6 On/Off Footwear (QC): 6 Additional Goals: 1-Demonstrate ADL Tasks, 2-Verbalize Understanding, 3- ImproveStrength/Lou 1=Demonstrate adherence to instructed precautions during ADL tasks. 2=Patient will verbalize/demonstrate understanding of assistive devices/modifications for ADL. 3=Patient will improve strength/tolerance for activity to enable patient to perform ADL's. OT Education/Plan Problem List/Assessment Assessment: Decreased Activ Tolerance, Decreased UE Strength, Impaired I ADL's Discharge Recommendations Plan/Recommendations: Continue POC Treatment Plan/Plan of Care Patient would benefit from OT for education, treatment and training to promote independence in ADL's, mobility, safety and/or upper extremity function for ADL's. Plan of Care: ADL Retraining, Functional Mobility, Group Exercise/Act as Ind, UE Funct Exercise/Act Treatment Duration: Mar 13, 2022 Frequency: At least 5 of 7 days/Wk (IRF) Estimated Hrs Per Day: 1.5 hours per day Agreement: Yes Rehab Potential: Fair Time Start Time: :15 Stop Time: 11:30 DATE: Feb 24, 2022 Total Time Billed (hr/min): 75 Billed Treatment Time 1, ADL (10'), EX (15'), FA 3 (50') SAMMY BRENNER OT Feb 24, 2022 10:33
--- NOTE | 2022-02-24 15:44 | Diagnostic Imaging Report ---
PROCEDURE: US Bilateral lower extremity arterial. TECHNIQUE: Multiple real-time grayscale images are obtained through both lower extremity arterial systems with color Doppler imaging and color Doppler spectral analysis. INDICATION: Peripheral vascular disease with claudication Grayscale images show diffuse calcified atherosclerotic plaque. Waveforms are monophasic beginning at the groin and continued through the legs. There are diminished velocities in the right leg from the groin to the ankles and in the left leg from the superficial femoral artery to the ankles. There is no occlusion or focal significant stenosis. IMPRESSION: Diffuse atherosclerosis throughout both legs with diminished velocities in both legs beginning proximal suggesting there may be some aortoiliac disease. Dictated by: Dictated on workstation # [id number]
[2022-02-24] MEDS: ENOXAPARIN 40 MG/0.4 ML (LOVENOX) SYR SC SCH (16:48)
[2022-02-24] MEDS ORDERED: RT-ALBUTEROL/IPRATROPIUM 3 ML (DUONEB) VIAL IH PRN (19:45)
[2022-02-24 20:47] VITALS: BP 175/75
[2022-02-24] MEDS: MELATONIN 3 MG TABLET PO PRN (21:31)
[2022-02-24 22:01] VITALS: BP 173/70
[2022-02-24 22:59] VITALS: BP 128/66
--- NOTE | 2022-02-25 05:25 | PM&R Progress Note ---
Subjective HPI/CC On Admission Date Seen by Provider: Feb 25, 2022 Time Seen by Provider: 11:00 Subjective/Events-last exam 02/25/2022: Patient doing well Ready for discharge at the end of week No other concerns Check meds labs 02/24/2022: Dramatic improvement Arterial ultrasound will be done today Maintain on oxygen Supportive care will continue 02/23/2022: Patient much improved Dramatic resolution of confusion Lungs remain stable No other concerns 02/22/2022: Patient doing a lot better Resting well Maintained on oxygen Much improved with transfers Supportive care 02/21/2022: Patient dramatically improved at the bedside No pain is reported Breathing better Slow recovery Labs reviewed Review of Systems General: Fatigue, Malaise Pulmonary: Dyspnea, Cough Objective Exam Vital Signs Vital Signs Date Time Temp Pulse Resp B/P (MAP) Pulse Ox O2 Delivery O2 Flow Rate FiO2 02/25/22 21:30 Nasal Cannula 2.00 02/25/22 20:36 36.1 75 18 159/72 (101) 97 Capillary Refill : General Appearance: WD/WN, Anxious, Chronically ill HEENT: PERRL/EOMI, Normal ENT Inspection, Pharynx Normal Neck: Full Range of Motion, Normal Inspection, Non Tender, Supple, Carotid Bruit Respiratory: Chest Non Tender, No Accessory Muscle Use, No Respiratory Distress, Decreased Breath Sounds Cardiovascular: Regular Rate, Rhythm, No Edema, No Gallop, No JVD, No Murmur, Normal Peripheral Pulses Gastrointestinal: Normal Bowel Sounds, No Organomegaly, No Pulsatile Mass, Non Tender, Soft Back: Normal Inspection, No CVA Tenderness, No Vertebral Tenderness Extremity: Normal Capillary Refill, Normal Inspection, Normal Range of Motion, Non Tender, No Calf Tenderness, No Pedal Edema Neurologic/Psychiatric: Alert, Oriented x3, No Motor/Sensory Deficits, aerial gunner II- XII Norm as Tested, Abnormal Gait, Depressed Affect, Motor Weakness (Generalized) Skin: Normal Color, Warm/Dry Lymphatic: No Adenopathy Results/Procedures Lab Patient resulted labs reviewed. FIM Transfers Therapy Code Descriptions/Definitions Functional [place] Measure: 0=Not Assessed/NA 4=Minimal Assistance 1=Total Assistance 5=Supervision or Setup 2=Maximal Assistance 6=Modified [place] 3=Moderate Assistance 7=Complete IndependenceSCALE: Activities may be completed with or without assistive devices. 1-Tpvffrpsvy-xwijjrm completes the activity by him/herself with no assistance from a helper. 5-Set-up or Clean-up Assistance-helper sets up or cleans up; patient completes activity. [place] assists only prior to or following the activity. 4-Supervision or Touching Assistance-helper provides verbal cues and/or touching/steadying and/or contact guard assistance as patient completes activity. Assistance may be provided throughout the activity or intermittently. 3-Partial/Moderate Assistance-helper does LESS THAN HALF the effort. [place] lifts, holds or supports trunk or limbs, but provides less than half the effort. 2-Substantial/Maximal Assistance-helper does MORE THAN HALF the effort. [place] lifts or holds trunk or limbs and provides more than half the effort. 7-Nyjfccith-qezvpo does ALL the effort. Patient does none of the effort to complete the activity. Or, the assistance of 2 or more helpers is required for the patient to complete the activity. If activity was not attempted, code reason: 7-Patient Refused. 9-Not Applicable-not attempted and the patient did not perform the activity before the current illness, exacerbation or injury. 10-Not Attempted due to Environmental Limitations-(lack of equipment, weather restraints, etc.). 88-Not Attempted due to Medical Conditions or Safety Concerns. Roll Left to Right (QC): 4 Sit to Lying (QC): 3 Sit to Stand (QC): 5 Chair/Cri-nb-Oedzb Xfer(QC): 4 Car Transfer (QC): 3 Gait Training Does the Patient Walk?: Yes Distance: 150' x2 Walk 10 feet (QC): 5 Walk 50 ft with 2 Turns(QC): 5 Walk 150 ft (QC): 5 Walking 10ft/uneven surface-QC: 3 Gait Persons Needed: 1 Gait Assistive Device: FWW Wheelchair Training Does the Pt Use a Wheelchair?: No Wheel 50 ft with 2 turns (QC): 1 Wheel 150 ft (QC): 1 Stair Training 1 Step (curb) (QC): 88 4 Steps (QC): 88 12 Steps (QC): 88 Balance Picking up an Object (QC): 88 ADL-Treatment Eating (QC): 6 Oral Hygiene (QC): 4 (SBA standing at sink) Shower/Bathe Self (QC): 4 (SBA ) Upper Body Dressing (QC): 5 (set up, assist only with O2 line) Lower Body Dressing (QC): 4 (SBA) On/Off Footwear (QC): 3 (Pt able to doff/don gripper socks with set up. Assistance only with TedHose) Toileting Hygiene (QC): 6 Toilet Transfer (QC): 6 Assessment/Plan Assessment and Plan Assess & Plan/Chief Complaint Assessment: Acute on chronic respiratory failure with hypoxia and hypercapnia COPD exacerbation currently on taper steroids Influenza A status post BiPAP UTI completed antibiotics HTN Hypomagnesemia Poor prognosis long-term Presumed dementia Delirium improved DVT prophylaxis: Lovenox Smoker Hypercalcemia with elevated PTH consistent with hyperparathyroidism PVD obtaining arterial ultrasound on 02/24/2022 Plan: O2 Nebs Supportive care Monitor closely Aggressive rehab DNR 02/21/2022: Add PTH to labs Taper down steroids 02/22/2022: Continue aggressive therapy 02/23/2022: Continued supportive care Dramatic improvement 02/24/2022: Arterial ultrasound Supportive care 02/25/2022: Discharge plan for Wednesday (1) Acute respiratory failure with hypoxia and hypercapnia Status: Acute (2) HTN (hypertension) Status: Chronic (3) Acute exacerbation of chronic obstructive pulmonary disease (COPD) Status: Acute (4) Dementia (5) Respiratory failure Status: Acute LORENA OSULLIVAN DO Feb 25, 2022 05:25
[2022-02-25] MEDS: CATHETER FLUSH 10 ML SYR IVP SCH ×3 (06:25→21:14)
[2022-02-25] MEDS: predniSONE 20 MG TAB PO SCH (06:25)
[2022-02-25 07:29] VITALS: BP 184/71
[2022-02-25] MEDS: SENNA W/DOCUSATE (SENOKOT S) TABLET PO SCH ×2 (08:01→21:09)
[2022-02-25] MEDS: lisINopril 20 MG (PRINIVIL) TABLET PO SCH ×2 (08:01→21:12)
[2022-02-25] MEDS: cloNIDine 0.1 MG (CATAPRES) TAB PO SCH ×2 (08:01→21:12)
[2022-02-25] MEDS: SPIRONOLACTONE 25 MG (ALDACTONE) TAB PO SCH (08:01)
[2022-02-25] MEDS: NICOTINE 21 MG (NICODERM) PATCH TD SCH (08:01)
[2022-02-25] MEDS: DOCUSATE SODIUM 100 MG (COLACE) CAP PO SCH ×2 (08:01→21:12)
[2022-02-25] MEDS: polyethylene glycoL POWDER 17 GM (MIRALAX) PACK PO SCH ×2 (08:02→21:13)
[2022-02-25] MEDS: toPIRamate 25 MG (TOPAMAX) TAB PO SCH (08:02)
[2022-02-25] MEDS: PATCH REMOVAL TP SCH (08:02)
--- NOTE | 2022-02-25 09:03 | Physical Therapy Daily Note ---
PT Daily Note-Current Subjective Pt in BR w/Nurse upon arrival. Pt agrees to PT. PT reports sleeping well but states wanting to take nap soon. Pain Location: No Pain Reported Section J - Health Conditions 1. Rarely or not at all 2. Occasionally 3. Frequently 4. Almost constantly 8. Unable to answer Pain Effect on Sleep: 1 Pain Interference with Therapy: 1 Pain Interference w/Day-to-Day: 1 Mental Status Patient Orientation: Person, Place, Situation Attachments: Oxygen (2L) Transfers SCALE: Activities may be completed with or without assistive devices. 6-Yofhiqgzyl-uncvqeo completes the activity by him/herself with no assistance from a helper. 5-Set-up or Clean-up Assistance-helper sets up or cleans up; patient completes activity. [place] assists only prior to or following the activity. 4-Supervision or Touching Assistance-helper provides verbal cues and/or touching/steadying and/or contact guard assistance as patient completes activity. Assistance may be provided throughout the activity or intermittently. 3-Partial/Moderate Assistance-helper does LESS THAN HALF the effort. [place] lifts, holds or supports trunk or limbs, but provides less than half the effort. 2-Substantial/Maximal Assistance-helper does MORE THAN HALF the effort. [place] lifts or holds trunk or limbs and provides more than half the effort. 5-Tqekcrlok-phumkf does ALL the effort. Patient does none of the effort to complete the activity. Or, the assistance of 2 or more helpers is required for the patient to complete the activity. If activity was not attempted, code reason: 7-Patient Refused. 9-Not Applicable-not attempted and the patient did not perform the activity before the current illness, exacerbation or injury. 10-Not Attempted due to Environmental Limitations-(lack of equipment, weather restraints, etc.). 88-Not Attempted due to Medical Conditions or Safety Concerns. Sit to Stand (QC): 5 Toilet Transfer (QC): 5 Weight Bearing Full Weight Bearing Full Weight Bearing Gait Training Does the Patient Walk?: Yes Distance: 150' x2 Walk 10 feet (QC): 5 Walk 50 ft with 2 Turns(QC): 5 Walk 150 ft (QC): 5 Gait Assistive Device: FWW Wheelchair Training Does the Pt Use a Wheelchair?: No Exercises Standing: Hip Abduction, Hamstring curls, Heel/toe raises Standing Reps: 15 NuStep Minutes: 15 NuStep Workload: 5 Treatments After finishing toileting, pt returns to recliner to rest before TF to stand and amb. in hallway. Pt uses NuStep, takes short RB then completes Standing Ex at //bars. Pt amb. in hallway before returning to room to rest in recliner at end of tx. All needs met,call light in hand. Assessment Current Status: Fair Progress Pt fatigues easily and needs RB for recovery. PT Short Term Goals Short Term Goals Time Frame: Feb 27, 2022 Roll Left & Right: 4 Sit to lyin (SBA) Lying to sitting on side of be: 4 (SBA) Sit to stand: 4 (CGA) Chair/end-qm-xxdut transfer: 4 (CGA) Walk 10 feet: 4 (CGA) Walk 50 feet with two turns: 4 (CGA) PT Longterm Goals Awning Craftsman Goals PT Longterm Goals Time Frame: Mar 06, 2022 Roll Left & Right (QC): 6 Sit to Lying (QC): 6 Lying-Sitting on Side/Bed(QC): 6 Sit to Stand (QC): 4 (SBA) Chair/Lmu-pg-Erany Xfer(QC): 4 (SBA) Toilet Transfer (QC): 4 (SBA) Car Transfer (QC): 4 (SBA) Does the Patient Walk: Yes Walk 10 feet (QC): 4 (SBA) Walk 50ft with 2 Turns (QC): 4 (SBA) Walk 150 ft (QC): 4 (SBA) Walking 10ft on Uneven Surface: 4 (SBA) 1 Step (curb) (QC): 4 (CGA) 4 Steps (QC): 4 (CGA) 12 Steps (QC): 88 Picking up an Object (QC): 4 (CGA using a combiner) Wheel 50 feet with 2 turns (QC: 9 Wheel 150 feet: 9 PT Plan Problem List Problem List: Activity Tolerance Treatment/Plan Treatment Plan: Continue Plan of Care Treatment Plan: Bed Mobility, Education, Functional Activity Lou, Functional Strength, Group Therapy, Gait, Safety, Therapeutic Exercise, Transfers Treatment Duration: Mar 06, 2022 Frequency: At least 5 of 7 days/Wk (IRF) Estimated Hrs Per Day: 1.5 hours per day Patient and/or Family Agrees t: Yes Safety Risks/Education Patient Education: Safety Issues Teaching Recipient: Patient Teaching Methods: Discussion Response to Teaching: Verbalize Understanding Time Time In: 800 Time Out: 900 DATE: Feb 25, 2022 Total Billed Treatment Time: 60 Total Billed Treatment 1, GT (20m), FA (10m) & EX x2 (30m) KING CLAY LIBRARY SERVICES COORDINATOR Feb 25, 2022 09:03
[2022-02-25 10:48] VITALS: BP 184/71
--- NOTE | 2022-02-25 10:49 | Occupational Ther Daily Note ---
OT Current Status-Daily Note Subjective Pt agreeable to OT Tx with some encouragement. Pt states she is tired and feels like sleeping. Pt states she feels like she is ready to discharge home. Mental Status/Objective Patient Orientation: Normal For Age Attachments: Oxygen ADL-Treatment Therapy Code Descriptions/Definitions Functional [place] Measure: 0=Not Assessed/NA 4=Minimal Assistance 1=Total Assistance 5=Supervision or Setup 2=Maximal Assistance 6=Modified [place] 3=Moderate Assistance 7=Complete IndependenceSCALE: Activities may be completed with or without assistive devices. 5-Jemdfyuxtp-pmphpcz completes the activity by him/herself with no assistance from a helper. 5-Set-up or Clean-up Assistance-helper sets up or cleans up; patient completes activity. [place] assists only prior to or following the activity. 4-Supervision or Touching Assistance-helper provides verbal cues and/or touching/steadying and/or contact guard assistance as patient completes activity. Assistance may be provided throughout the activity or intermittently. 3-Partial/Moderate Assistance-helper does LESS THAN HALF the effort. [place] lifts, holds or supports trunk or limbs, but provides less than half the effort. 2-Substantial/Maximal Assistance-helper does MORE THAN HALF the effort. [place] lifts or holds trunk or limbs and provides more than half the effort. 6-Mfthjlrtt-rkgaer does ALL the effort. Patient does none of the effort to complete the activity. Or, the assistance of 2 or more helpers is required for the patient to complete the activity. If activity was not attempted, code reason: 7-Patient Refused. 9-Not Applicable-not attempted and the patient did not perform the activity bef ore the current illness, exacerbation or injury. 10-Not Attempted due to Environmental Limitations-(lack of equipment, weather r estraints, etc.). 88-Not Attempted due to Medical Conditions or Safety Concerns. Eating (QC): 6 Oral Hygiene (QC): 6 Shower/Bathe Self (QC): 6 Upper Body Dressing (QC): 6 Lower Body Dressing (QC): 6 On/Off Footwear: 6 Toileting Hygiene (QC): 6 Toilet Transfer (QC): 6 Other Treatment Pt in recliner, used FWW to gather clothes from closet and transfer into bathroom independently. Pt completed toileting, showering and dressing. Pt stood at sink to complete oral care and hygiene independently. Pt transferred to recliner for a rest break, and completed BIMS. Pt used FWW to perform functional mobility to therapy gym, OT assisted only with managing O2 tank. In order to increase BUE strength and activity tolerance, pt completed x10 mins on arm bike, very slow pace, 15 Watt resistance. VCs required for pace due to pt going so slow the machine didn't count some of the time. Pt took rest break, then used FWW to return to her room, OT assisted only with O2 tank management. Post tx, pt in recliner, call light in reach and all needs met, chair alarm activated. Education OT Patient Education: Correct positioning, Energy conservation, Instructions to caregiver, Progress toward Goal/Update tx plan, Purpose of tx/functional activities, Rehab process Teaching Recipient: Patient Teaching Methods: Discussion Response to Teaching: Verbalize Understanding BIMS CAM BIMS Expression of Ideas and Wants: Without Difficulty Understanding Verbal Content: Understands Brief Interview/Mental Status: Yes IRF KOBI BIMS: IRF KOBI BIMS Response (Comments) Value Repitition of Three Words Three 3 Recalls Socks Yes, No Cue Required 2 Recalls Blue Yes, No Cue Required 2 Recalls Bed Yes, No Cue Required 2 Year Correct 3 Month Accurate Within 5 Days 2 Day Correct 1 Total 15 CAM Mental Status Change/Baseline: 0 Inattention: 0 Disorganized thinkin Altered level of consciousness: 0 OT Short Term Goals Short Term Goals Time Frame: Mar 02, 2022 Toileting hygiene: 4 Shower/bathe self: 4 Lower body dressin OT Retirement Goals Vocational School Teacher Goals Time Frame: Mar 13, 2022 Acute change in mental status: 0 Inattention: 0 Disorganized thinkin Altered level of consciousness: 0 Eating (QC): 6 (met) Oral Hygiene (QC): 6 (met) Toileting Hygiene (QC): 6 (met) Shower/Bathe Self (QC): 6 (met) Upper Body Dressing (QC): 6 (met) Lower Body Dressing (QC): 6 (met) On/Off Footwear (QC): 6 (met) Additional Goals: 1-Demonstrate ADL Tasks, 2-Verbalize Understanding, 3- ImproveStrength/Lou 1=Demonstrate adherence to instructed precautions during ADL tasks. 2=Patient will verbalize/demonstrate understanding of assistive devices /modifications for ADL. 3=Patient will improve strength/tolerance for activity to enable patient to perform ADL's. OT Education/Plan Problem List/Assessment Assessment: Decreased Activ Tolerance, Decreased UE Strength, Impaired I ADL's Discharge Recommendations Plan/Recommendations: Continue POC Treatment Plan/Plan of Care Patient would benefit from OT for education, treatment and training to promote independence in ADL's, mobility, safety and/or upper extremity function for ADL's. Plan of Care: ADL Retraining, Functional Mobility, Group Exercise/Act as Ind, UE Funct Exercise/Act Treatment Duration: Mar 13, 2022 Frequency: At least 5 of 7 days/Wk (IRF) Estimated Hrs Per Day: 1.5 hours per day Agreement: Yes Rehab Potential: Fair Time Start Time: 10:15 Stop Time: 11:45 DATE: Feb 25, 2022 Total Time Billed (hr/min): 90 Billed Treatment Time 1, ADL 5 (75'), EX (15') SAMMY BRENNER OT Feb 25, 2022 10:49
[2022-02-25 10:53] VITALS: BP 137/84
--- NOTE | 2022-02-25 13:40 | Physical Therapy Daily Note ---
PT Daily Note-Current Subjective Pt in [place] upon arrival. SPECIAL CLIENT BUS DRIVER gathering clothes as pt has loose BM. Pt agrees to PT. Pain Location: No Pain Reported Section J - Health Conditions 1. Rarely or not at all 2. Occasionally 3. Frequently 4. Almost constantly 8. Unable to answer Pain Effect on Sleep: 1 Pain Interference with Therapy: 1 Pain Interference w/Day-to-Day: 1 Mental Status Patient Orientation: Person, Place, Situation Attachments: Oxygen (2L) Transfers SCALE: Activities may be completed with or without assistive devices. 8-Zlteakvxhr-uzryugr completes the activity by him/herself with no assistance from a helper. 5-Set-up or Clean-up Assistance-helper sets up or cleans up; patient completes activity. [place] assists only prior to or following the activity. 4-Supervision or Touching Assistance-helper provides verbal cues and/or touching/steadying and/or contact guard assistance as patient completes activity. Assistance may be provided throughout the activity or intermittently. 3-Partial/Moderate Assistance-helper does LESS THAN HALF the effort. [place] lifts, holds or supports trunk or limbs, but provides less than half the effort. 2-Substantial/Maximal Assistance-helper does MORE THAN HALF the effort. [place] lifts or holds trunk or limbs and provides more than half the effort. 0-Lypmklchi-vlmzim does ALL the effort. Patient does none of the effort to complete the activity. Or, the assistance of 2 or more helpers is required for the patient to complete the activity. If activity was not attempted, code reason: 7-Patient Refused. 9-Not Applicable-not attempted and the patient did not perform the activity before the current illness, exacerbation or injury. 10-Not Attempted due to Environmental Limitations-(lack of equipment, weather restraints, etc.). 88-Not Attempted due to Medical Conditions or Safety Concerns. Roll Left & Right (QC): 5 Sit to Lying (QC): 5 Sit to Stand (QC): 5 Weight Bearing Full Weight Bearing Full Weight Bearing Gait Training Does the Patient Walk?: Yes Distance: 15' Walk 10 feet (QC): 5 Gait Assistive Device: FWW Treatments Pt is able to don/doff undergarments & pants as well as complete pericare at SBA. Pt amb. to EOB to rest and asks to lay in bed as pt is very fatigued after trip to [place]. Pt lays Supine in bed w/o assist from WINDOW TREATMENT INSTALLER. All needs met, call light in hand. Assessment Current Status: Good Progress Pt fatigues easily and needs RB at times. PT Short Term Goals Short Term Goals Time Frame: Feb 27, 2022 Roll Left & Right: 4 Sit to lyin (SBA) Lying to sitting on side of be: 4 (SBA) Sit to stand: 4 (CGA) Chair/jya-bz-aiivd transfer: 4 (CGA) Walk 10 feet: 4 (CGA) Walk 50 feet with two turns: 4 (CGA) PT Senior Care Goals Renewals Manager Goals PT Renewals Manager Goals Time Frame: Mar 06, 2022 Roll Left & Right (QC): 6 Sit to Lying (QC): 6 Lying-Sitting on Side/Bed(QC): 6 Sit to Stand (QC): 4 (SBA) Chair/Gri-et-[place] Xfer(QC): 4 (SBA) Toilet Transfer (QC): 4 (SBA) Car Transfer (QC): 4 (SBA) Does the Patient Walk: Yes Walk 10 feet (QC): 4 (SBA) Walk 50ft with 2 Turns (QC): 4 (SBA) Walk 150 ft (QC): 4 (SBA) Walking 10ft on Uneven Surface: 4 (SBA) 1 Step (curb) (QC): 4 (CGA) 4 Steps (QC): 4 (CGA) 12 Steps (QC): 88 Picking up an Object (QC): 4 (CGA using a hides inspector) Wheel 50 feet with 2 turns (QC: 9 Wheel 150 feet: 9 PT Plan Problem List Problem List: Activity Tolerance Treatment/Plan Treatment Plan: Continue Plan of Care Treatment Plan: Bed Mobility, Education, Functional Activity Lou, Functional Strength, Group Therapy, Gait, Safety, Therapeutic Exercise, Transfers Treatment Duration: Mar 06, 2022 Frequency: At least 5 of 7 days/Wk (IRF) Estimated Hrs Per Day: 1.5 hours per day Patient and/or Family Agrees t: Yes Safety Risks/Education Patient Education: Safety Issues Teaching Recipient: Patient Teaching Methods: Discussion Response to Teaching: Verbalize Understanding VC for safety w/O2 line management. Time Time In: 1300 Time Out: 1330 DATE: Feb 25, 2022 Total Billed Treatment Time: 30 Total Billed Treatment 1, FA x2 (30m) KING CLAY PTA Feb 25, 2022 13:40
[2022-02-25] MEDS: ENOXAPARIN 40 MG/0.4 ML (LOVENOX) SYR SC SCH (16:28)
[2022-02-25 20:36] VITALS: BP 159/72
[2022-02-25] MEDS: MELATONIN 3 MG TABLET PO PRN (21:10)
[2022-02-26] MEDS: CATHETER FLUSH 10 ML SYR IVP SCH ×3 (06:07→21:15)
[2022-02-26] MEDS: predniSONE 20 MG TAB PO SCH (06:07)
[2022-02-26 07:33] VITALS: BP 192/73
[2022-02-26] MEDS: toPIRamate 25 MG (TOPAMAX) TAB PO SCH (08:00)
[2022-02-26] MEDS: cloNIDine 0.1 MG (CATAPRES) TAB PO SCH ×2 (08:00→21:15)
[2022-02-26] MEDS: lisINopril 20 MG (PRINIVIL) TABLET PO SCH ×2 (08:00→21:14)
[2022-02-26] MEDS: SPIRONOLACTONE 25 MG (ALDACTONE) TAB PO SCH (08:03)
[2022-02-26 08:45] VITALS: BP 155/68
--- NOTE | 2022-02-26 08:50 | Physical Therapy Daily Note ---
PT Daily Note-Current Subjective Pt. agrees to Rx, states she is looking forward to going home tomorrow. Pt. states she will not use O2 during the day at home, "I never did before" Nurse present and gives this WARP DYEING TENDER permission to check O2 sats during activity on room air only. Pt. also states she lives in an RV and will not have room for use of FWW. Pain Location: No Pain Reported Section J - Health Conditions 1. Rarely or not at all 2. Occasionally 3. Frequently 4. Almost constantly 8. Unable to answer Pain Effect on Sleep: 1 Pain Interference with Therapy: 1 Pain Interference w/Day-to-Day: 1 Mental Status Patient Orientation: Normal For Age Attachments: Oxygen (2L before Rx began) Transfers SCALE: Activities may be completed with or without assistive devices. 2-Fihqtewspr-foslduu completes the activity by him/herself with no assistance from a helper. 5-Set-up or Clean-up Assistance-helper sets up or cleans up; patient completes activity. [place] assists only prior to or following the activity. 4-Supervision or Touching Assistance-helper provides verbal cues and/or touching/steadying and/or contact guard assistance as patient completes activity. Assistance may be provided throughout the activity or intermittently. 3-Partial/Moderate Assistance-helper does LESS THAN HALF the effort. [place] lifts, holds or supports trunk or limbs, but provides less than half the effort. 2-Substantial/Maximal Assistance-helper does MORE THAN HALF the effort. [place] lifts or holds trunk or limbs and provides more than half the effort. 6-Dtuitdljy-gwdsnc does ALL the effort. Patient does none of the effort to complete the activity. Or, the assistance of 2 or more helpers is required for the patient to complete the activity. If activity was not attempted, code reason: 7-Patient Refused. 9-Not Applicable-not attempted and the patient did not perform the activity before the current illness, exacerbation or injury. 10-Not Attempted due to Environmental Limitations-(lack of equipment, weather restraints, etc.). 88-Not Attempted due to Medical Conditions or Safety Concerns. Roll Left & Right (QC): 6 Sit to Lying (QC): 6 Lying to Sitting/Side of Bed(Q: 6 Sit to Stand (QC): 6 Chair/Hto-op-Wrymd Xfer(QC): 6 Toilet Transfer (QC): 6 Car Transfer (QC): 6 Weight Bearing Full Weight Bearing Full Weight Bearing Gait Training Does the Patient Walk?: Yes Walk 10 feet (QC): 6 Walk 50 ft with 2 Turns(QC): 6 Walk 150 ft (QC): 6 Walking 10ft/uneven surface-QC: 6 Gait Persons Needed: 0 Gait Assistive Device: FWW no LOB, good use of device, backing, sideways , etc, no incident noted, 175 ft x 2, 50 ft x 2 Wheelchair Training Does the Pt Use a Wheelchair?: No Stair Training Stair Training: Handrails/: 2 handrails #of Steps: 12 1 Step (curb) (QC): 6 4 Steps (QC): 6 12 Steps (QC): 6 Stairs: Pattern: Reciprocal Balance Picking up an Object (QC): 6 Exercises Supine Ex: Bridging, Ankle pumps, Quad Set, Rolling, Glut sets, Heel Slides, Scooting, Straight leg raise, Hip abd/add Supine Reps: 12 NuStep Minutes: 10 NuStep Workload: 2 Treatments QC complete, gait, TRFs, stairs, etc, and therex. Assessment Current Status: Good Progress discussion before Rx with nurse in room , nurse suggests working without O2 and monitoring O2, Pt. also very insistent she will not use O2 at home but has concentrator and portable if needed. During gait and exercise and all of Rx, sats ran 86% to 94% on room air, BP 130/61 and 141/71 PT Short Term Goals Short Term Goals Time Frame: Feb 27, 2022 Roll Left & Right: 4 Sit to lyin (SBA) Lying to sitting on side of be: 4 (SBA) Sit to stand: 4 (CGA) Chair/wkg-ui-vfrlp transfer: 4 (CGA) Walk 10 feet: 4 (CGA) Walk 50 feet with two turns: 4 (CGA) PT Compliance Associate Goals Halfway Goals PT Compliance Associate Goals Time Frame: Mar 06, 2022 Roll Left & Right (QC): 6 Sit to Lying (QC): 6 Lying-Sitting on Side/Bed(QC): 6 Sit to Stand (QC): 4 (SBA) Chair/Wpk-uk-Isgpj Xfer(QC): 4 (SBA) Toilet Transfer (QC): 4 (SBA) Car Transfer (QC): 4 (SBA) Does the Patient Walk: Yes Walk 10 feet (QC): 4 (SBA) Walk 50ft with 2 Turns (QC): 4 (SBA) Walk 150 ft (QC): 4 (SBA) Walking 10ft on Uneven Surface: 4 (SBA) 1 Step (curb) (QC): 4 (CGA) 4 Steps (QC): 4 (CGA) 12 Steps (QC): 88 Picking up an Object (QC): 4 (CGA using a avionics systems technician) Wheel 50 feet with 2 turns (QC: 9 Wheel 150 feet: 9 PT Plan Treatment/Plan Treatment Plan: Continue Plan of Care Treatment Plan: Bed Mobility, Education, Functional Activity Lou, Functional Strength, Group Therapy, Gait, Safety, Therapeutic Exercise, Transfers Treatment Duration: Mar 06, 2022 Frequency: At least 5 of 7 days/Wk (IRF) Estimated Hrs Per Day: 1.5 hours per day Patient and/or Family Agrees t: Yes Safety Risks/Education Patient Education: Gait Training, Transfer Techniques, Steps, Correct Positioning, Disease Process, Safety Issues Teaching Recipient: Patient Teaching Methods: Demonstration, Discussion Response to Teaching: Verbalize Understanding, Return Demonstration, Reinforcement Needed discussed and demonstrated the safe use of extended O2 tubing while up and about for safety and fall prevention etc Time Time In: 745 Time Out: 845 DATE: Feb 26, 2022 Total Billed Treatment Time: 60 Total Billed Treatment 1,FA25m,GT15m,EX20m KHRIS SANTIAGO WARP DYEING TENDER Feb 26, 2022 08:50
[2022-02-26] MEDS: DOCUSATE SODIUM 100 MG (COLACE) CAP PO SCH ×2 (09:07→21:12)
[2022-02-26] MEDS: polyethylene glycoL POWDER 17 GM (MIRALAX) PACK PO SCH ×2 (09:07→21:13)
[2022-02-26] MEDS: SENNA W/DOCUSATE (SENOKOT S) TABLET PO SCH ×2 (09:07→21:13)
--- NOTE | 2022-02-26 09:23 | Occupational Ther Daily Note ---
OT Current Status-Daily Note Subjective Pt up in recliner, agreeable to OT Tx with some encouragement. Pt states her is present and she would like to visit with him. OT informed pt about ARU expectations, pt agreeable. Pt questioned why she was on oxygen and states she doesn't believe she needs it at home. Mental Status/Objective Patient Orientation: Normal For Age Attachments: Oxygen (2L) ADL-Treatment Therapy Code Descriptions/Definitions Functional [place] Measure: 0=Not Assessed/NA 4=Minimal Assistance 1=Total Assistance 5=Supervision or Setup 2=Maximal Assistance 6=Modified [place] 3=Moderate Assistance 7=Complete IndependenceSCALE: Activities may be completed with or without assistive devices. 8-Luejfalray-dvscsav completes the activity by him/herself with no assistance from a helper. 5-Set-up or Clean-up Assistance-helper sets up or cleans up; patient completes activity. [place] assists only prior to or following the activity. 4-Supervision or Touching Assistance-helper provides verbal cues and/or touching/steadying and/or contact guard assistance as patient completes activity. Assistance may be provided throughout the activity or intermittently. 3-Partial/Moderate Assistance-helper does LESS THAN HALF the effort. [place] lifts, holds or supports trunk or limbs, but provides less than half the effort. 2-Substantial/Maximal Assistance-helper does MORE THAN HALF the effort. [place] lifts or holds trunk or limbs and provides more than half the effort. 5-Xlqyerlbp-eviisg does ALL the effort. Patient does none of the effort to complete the activity. Or, the assistance of 2 or more helpers is required for the patient to complete the activity. If activity was not attempted, code reason: 7-Patient Refused. 9-Not Applicable-not attempted and the patient did not perform the activity b efore the current illness, exacerbation or injury. 10-Not Attempted due to Environmental Limitations-(lack of equipment, weather restraints, etc.). 88-Not Attempted due to Medical Conditions or Safety Concerns. Toileting Hygiene (QC): 6 Toilet Transfer (QC): 6 Other Treatment Pt in recliner, declined ADLS including toileting, showering, and dressing. Pt used FWW to begin functional mobility towards therapy gym, OT assisted only with O2 tank. [place] to gym, pt states need to urinate, returning to her room, completing toileting and hand hygiene. Pt then used FWW to go to therapy gym, OT assisted only with O2 tank. OT tx focused on increasing BUE strength and activity tolerance. Pt completed x15 mins on arm bike, 20 Watt resistance, 3 rest breaks as needed. Pt then removed beads from moderate resistance (green) theraputty. Pt required VC to locate last 2 beads. Pt completed UE reaching task, placing/removing 1" pegs from foam pegboard, completing x100 pegs total, 1lb wrist weights BUEs. Pt completed "Peg Dirk" task, matching colors of pegs onto board, manipulating game pieces, and using fine motor coordination. 1lb wrist weights BUEs throughout task, 1 error noted during game. Pt unable to locate error with verbal cues. Pt removed small pegs from board. Pt used FWW to return to her room, OT managed O2 tank. Post tx, pt in recliner, call light in reach and all needs met. Education OT Patient Education: Correct positioning, Energy conservation, Exercise program, Modified ADL techniques, Progress toward Goal/Update tx plan, Purpose of tx/functional activities, Rehab process Teaching Recipient: Patient Teaching Methods: Discussion Response to Teaching: Verbalize Understanding OT Short Term Goals Short Term Goals Time Frame: Mar 02, 2022 Toileting hygiene: 4 Shower/bathe self: 4 Lower body dressin OT Shot Peening Operator Goals Shot Peening Operator Goals Time Frame: Mar 13, 2022 Acute change in mental status: 0 Inattention: 0 Disorganized thinkin Altered level of consciousness: 0 Eating (QC): 6 (met) Oral Hygiene (QC): 6 (met) Toileting Hygiene (QC): 6 (met) Shower/Bathe Self (QC): 6 (met) Upper Body Dressing (QC): 6 (met) Lower Body Dressing (QC): 6 (met) On/Off Footwear (QC): 6 (met) Additional Goals: 1-Demonstrate ADL Tasks, 2-Verbalize Understanding, 3- ImproveStrength/Lou 1=Demonstrate adherence to instructed precautions during ADL tasks. 2=Patient will verbalize/demonstrate understanding of assistive devices/modifications for ADL. 3=Patient will improve strength/tolerance for activity to enable patient to perform ADL's. OT Education/Plan Problem List/Assessment Assessment: Decreased Activ Tolerance, Decreased UE Strength, Impaired I ADL's Discharge Recommendations Plan/Recommendations: Continue POC Treatment Plan/Plan of Care Patient would benefit from OT for education, treatment and training to promote independence in ADL's, mobility, safety and/or upper extremity function for ADL's. Plan of Care: ADL Retraining, Functional Mobility, Group Exercise/Act as Ind, UE Funct Exercise/Act Treatment Duration: Mar 13, 2022 Frequency: At least 5 of 7 days/Wk (IRF) Estimated Hrs Per Day: 1.5 hours per day Agreement: Yes Rehab Potential: Fair Time Start Time: 09:00 Stop Time: 10:30 DATE: Feb 26, 2022 Total Time Billed (hr/min): 90 Billed Treatment Time 1, ADL (15'), EX (15'), FA 4 (60') SAMMY BRENNER OT Feb 26, 2022 09:23
--- NOTE | 2022-02-26 10:42 | PM&R Progress Note ---
Subjective HPI/CC On Admission Date Seen by Provider: Feb 26, 2022 Time Seen by Provider: 12:00 Subjective/Events-last exam 02/26/2022: Patient doing well Ready for discharge tomorrow Had an episode of chest pain but EKG nonspecific and troponin negative Echo will be obtained tomorrow 02/25/2022: Patient doing well Ready for discharge at the end of week No other concerns Check meds labs 02/24/2022: Dramatic improvement Arterial ultrasound will be done today Maintain on oxygen Supportive care will continue 02/23/2022: Patient much improved Dramatic resolution of confusion Lungs remain stable No other concerns 02/22/2022: Patient doing a lot better Resting well Maintained on oxygen Much improved with transfers Supportive care 02/21/2022: Patient dramatically improved at the bedside No pain is reported Breathing better Slow recovery Labs reviewed Review of Systems General: Fatigue, Malaise Neurological: Weakness, Incoordination Objective Exam Vital Signs Vital Signs Date Time Temp Pulse Resp B/P (MAP) Pulse Ox O2 Delivery O2 Flow Rate FiO2 02/26/22 21:11 174/72 (106) 02/26/22 21:10 Nasal Cannula 2.00 02/26/22 19:41 37.0 84 20 97 Capillary Refill : General Appearance: WD/WN, Anxious, Chronically ill HEENT: PERRL/EOMI, Normal ENT Inspection, Pharynx Normal Neck: Full Range of Motion, Normal Inspection, Non Tender, Supple, Carotid Br uit Respiratory: Chest Non Tender, No Accessory Muscle Use, No Respiratory Distress, Decreased Breath Sounds Cardiovascular: Regular Rate, Rhythm, No Edema, No Gallop, No JVD, No Murmur, Normal Peripheral Pulses Gastrointestinal: Normal Bowel Sounds, No Organomegaly, No Pulsatile Mass, Non Tender, Soft Back: Normal Inspection, No CVA Tenderness, No Vertebral Tenderness Extremity: Normal Capillary Refill, Normal Inspection, Normal Range of Motion, Non Tender, No Calf Tenderness, No Pedal Edema Neurologic/Psychiatric: Alert, Oriented x3, No Motor/Sensory Deficits, 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 FIM Transfers Therapy Code Descriptions/Definitions Functional [place] Measure: 0=Not Assessed/NA 4=Minimal Assistance 1=Total Assistance 5=Supervision or Setup 2=Maximal Assistance 6=Modified [place] 3=Moderate Assistance 7=Complete IndependenceSCALE: Activities may be completed with or without assistive devices. 0-Ouqofavkzn-zguyvhm completes the activity by him/herself with no assistance from a helper. 5-Set-up or Clean-up Assistance-helper sets up or cleans up; patient completes activity. [place] assists only prior to or following the activity. 4-Supervision or Touching Assistance-helper provides verbal cues and/or touching/steadying and/or contact guard assistance as patient completes activity. Assistance may be provided throughout the activity or intermittently. 3-Partial/Moderate Assistance-helper does LESS THAN HALF the effort. Ava lifts, holds or supports trunk or limbs, but provides less than half the effort. 2-Substantial/Maximal Assistance-helper does MORE THAN HALF the effort. Ava lifts or holds trunk or limbs and provides more than half the effort. 1-Oyxnvtfac-mtiogu does ALL the effort. Patient does none of the effort to complete the activity. Or, the assistance of 2 or more helpers is required for the patient to complete the activity. If activity was not attempted, code reason: 7-Patient Refused. 9-Not Applicable-not attempted and the patient did not perform the activity before the current illness, exacerbation or injury. 10-Not Attempted due to Environmental Limitations-(lack of equipment, weather restraints, etc.). 88-Not Attempted due to Medical Conditions or Safety Concerns. Roll Left to Right (QC): 6 Sit to Lying (QC): 6 Sit to Stand (QC): 6 Chair/Yzo-sh-Potmm Xfer(QC): 6 Car Transfer (QC): 6 Gait Training Does the Patient Walk?: Yes Distance: 15' Walk 10 feet (QC): 6 Walk 50 ft with 2 Turns(QC): 6 Walk 150 ft (QC): 6 Walking 10ft/uneven surface-QC: 6 Gait Persons Needed: 0 Gait Assistive Device: FWW Wheelchair Training Does the Pt Use a Wheelchair?: No Wheel 50 ft with 2 turns (QC): 1 Wheel 150 ft (QC): 1 Stair Training Stair Training: Handrails/: 2 handrails #of Steps: 12 1 Step (curb) (QC): 6 4 Steps (QC): 6 12 Steps (QC): 6 Stairs: Pattern: Reciprocal Balance Picking up an Object (QC): 6 ADL-Treatment Eating (QC): 6 Oral Hygiene (QC): 6 Shower/Bathe Self (QC): 6 Upper Body Dressing (QC): 6 Lower Body Dressing (QC): 6 On/Off Footwear (QC): 6 Toileting Hygiene (QC): 6 Toilet Transfer (QC): 6 Assessment/Plan Assessment and Plan Assess & Plan/Chief Complaint Assessment: Acute on chronic respiratory failure with hypoxia and hypercapnia COPD exacerbation currently on taper steroids Influenza A status post BiPAP UTI completed antibiotics HTN Hypomagnesemia Poor prognosis long-term Presumed dementia Delirium improved DVT prophylaxis: Lovenox Smoker Hypercalcemia with elevated PTH consistent with hyperparathyroidism PVD obtaining arterial ultrasound on 02/24/2022 Episode of chest pain negative EKG and troponin for ACS placed on aspirin Plan: O2 Nebs Supportive care Monitor closely Aggressive rehab DNR 02/21/2022: Add PTH to labs Taper down steroids 02/22/2022: Continue aggressive therapy 02/23/2022: Continued supportive care Dramatic improvement 02/24/2022: Arterial ultrasound Supportive care 02/25/2022: Discharge plan for Wednesday02/26/2022: Discharge home tomorrow (1) Acute respiratory failure with hypoxia and hypercapnia Status: Acute (2) HTN (hypertension) Status: Chronic (3) Acute exacerbation of chronic obstructive pulmonary disease (COPD) Status: Acute (4) Dementia (5) Respiratory failure Status: Acute LORENA OSULLIVAN DO Feb 26, 2022 10:42
[2022-02-26] MEDS: PATCH REMOVAL TP SCH (10:53)
[2022-02-26] MEDS: NICOTINE 21 MG (NICODERM) PATCH TD SCH (10:53)
--- NOTE | 2022-02-26 11:29 | Physical Therapy Daily Note ---
PT Daily Note-Current Subjective Pt. up in recliner, agrees to Rx but questions why she is being instructed in how to use extended O2 tubing while up walking. "I will not be using the oxygen during the day, only night when I go home". Pain Location: No Pain Reported Section J - Health Conditions 1. Rarely or not at all 2. Occasionally 3. Frequently 4. Almost constantly 8. Unable to answer Pain Effect on Sleep: 1 Pain Interference with Therapy: 1 Pain Interference w/Day-to-Day: 1 Mental Status Patient Orientation: Normal For Age Attachments: Oxygen (2L extended tubing) Transfers SCALE: Activities may be completed with or without assistive devices. 6-Ajotroamgt-vfqklpv completes the activity by him/herself with no assistance from a helper. 5-Set-up or Clean-up Assistance-helper sets up or cleans up; patient completes activity. [place] assists only prior to or following the activity. 4-Supervision or Touching Assistance-helper provides verbal cues and/or touching/steadying and/or contact guard assistance as patient completes activity. Assistance may be provided throughout the activity or intermittently. 3-Partial/Moderate Assistance-helper does LESS THAN HALF the effort. [place] lifts, holds or supports trunk or limbs, but provides less than half the effort. 2-Substantial/Maximal Assistance-helper does MORE THAN HALF the effort. [place] lifts or holds trunk or limbs and provides more than half the effort. 0-Qiavhfmjw-hbinvh does ALL the effort. Patient does none of the effort to complete the activity. Or, the assistance of 2 or more helpers is required for the patient to complete the activity. If activity was not attempted, code reason: 7-Patient Refused. 9-Not Applicable-not attempted and the patient did not perform the activity before the current illness, exacerbation or injury. 10-Not Attempted due to Environmental Limitations-(lack of equipment, weather restraints, etc.). 88-Not Attempted due to Medical Conditions or Safety Concerns. Sit to Stand (QC): 6 Weight Bearing Full Weight Bearing Full Weight Bearing Gait Training Does the Patient Walk?: Yes Gait Assistive Device: FWW [id number] FWW with instruction in safety and technique while using extended O2 tubing to be safe for turning and aware of tangled O2 tubing and risk of falls etc. Pt. had no LOB but stood without hanging on to FWW to manage tubing while rotating left and right , pt also was observed carrying the FWW a few steps to free i up from the tube. Pt. was warned about safety issues etc. no LOB unique Rx. Exercises Seated Therapy Exercises: Ankle pumps, Sit to stand, Long arc quads, Hip flexion Seated Reps: 10 Treatments seated LE ex, gait with O2 tubing, toileting and handwashing with ext O2 tubing. O2 sats steady > 90%. Nursing states RT to come test pt. for O2 dependence Assessment Current Status: Good Progress pt. will likely do as she says and not use O2 or FWW when she gets home but did seem to understand the concept of safety while using it during the Rx. PT Short Term Goals Short Term Goals Time Frame: Feb 27, 2022 Roll Left & Right: 4 Sit to lyin (SBA) Lying to sitting on side of be: 4 (SBA) Sit to stand: 4 (CGA) Chair/iui-kc-hqxmp transfer: 4 (CGA) Walk 10 feet: 4 (CGA) Walk 50 feet with two turns: 4 (CGA) PT Burning Plant Operator Goals Burning Plant Operator Goals PT Burning Plant Operator Goals Time Frame: Mar 06, 2022 Roll Left & Right (QC): 6 Sit to Lying (QC): 6 Lying-Sitting on Side/Bed(QC): 6 Sit to Stand (QC): 4 (SBA) Chair/Eyk-of-[place]neg[place] Xfer(QC): 4 (SBA) Toilet Transfer (QC): 4 (SBA) Car Transfer (QC): 4 (SBA) Does the Patient Walk: Yes Walk 10 feet (QC): 4 (SBA) Walk 50ft with 2 Turns (QC): 4 (SBA) Walk 150 ft (QC): 4 (SBA) Walking 10ft on Uneven Surface: 4 (SBA) 1 Step (curb) (QC): 4 (CGA) 4 Steps (QC): 4 (CGA) 12 Steps (QC): 88 Picking up an Object (QC): 4 (CGA using a mailing machine assistant) Wheel 50 feet with 2 turns (QC: 9 Wheel 150 feet: 9 PT Plan Treatment/Plan Treatment Plan: Continue Plan of Care Treatment Plan: Bed Mobility, Education, Functional Activity Lou, Functional Strength, Group Therapy, Gait, Safety, Therapeutic Exercise, Transfers Treatment Duration: Mar 06, 2022 Frequency: At least 5 of 7 days/Wk (IRF) Estimated Hrs Per Day: 1.5 hours per day Patient and/or Family Agrees t: Yes Safety Risks/Education Patient Education: Gait Training, Transfer Techniques, Correct Positioning, Safety Issues Teaching Recipient: Patient Teaching Methods: Demonstration, Discussion Response to Teaching: Verbalize Understanding, Return Demonstration, Reinforcement Needed Time Time In: 1100 Time Out: 1130 DATE: Feb 26, 2022 Total Billed Treatment Time: 30 Total Billed Treatment 1,GT30m KHRIS SANTIAGO DINING ROOM COORDINATOR Feb 26, 2022 11:29
[2022-02-26] MEDS: ENOXAPARIN 40 MG/0.4 ML (LOVENOX) SYR SC SCH (15:59)
[2022-02-26] MEDS: cloNIDine 0.1 MG (CATAPRES) TAB PO PRN (18:48)
[2022-02-26] MEDS ORDERED: ASPIRIN 81 MG CHEW (CHILDREN'S ASA) PO NR (19:30)
[2022-02-26 19:41] VITALS: BP 186/77
[2022-02-26 21:11] VITALS: BP 174/72
[2022-02-26] MEDS: MELATONIN 3 MG TABLET PO PRN (21:13)
[2022-02-27] MEDS ORDERED: CLN.1T PO ×2 (05:21)
[2022-02-27] MEDS ORDERED: ATOR40TA PO (05:21)
[2022-02-27] MEDS ORDERED: TPR25T PO (05:21)
[2022-02-27] MEDS ORDERED: SPIR25TA5 PO (05:21)
[2022-02-27] MEDS ORDERED: PRED10TA22 PO (05:21)
[2022-02-27] MEDS ORDERED: CARV6.252 PO (05:21)
[2022-02-27] MEDS ORDERED: IPRA3AMP31 IH (05:21)
--- NOTE | 2022-02-27 05:23 | Discharge Summary ---
Diagnosis/Chief Complaint Date of Admission Feb 20, 2022 at 13:25 Date of Discharge Discharge Date: Feb 27, 2022 Discharge Diagnosis Assessment: Acute on chronic respiratory failure with hypoxia and hypercapnia COPD exacerbation currently on taper steroids Influenza A status post BiPAP UTI completed antibiotics HTN Hypomagnesemia Poor prognosis long-term Presumed dementia Delirium improved DVT prophylaxis: Lovenox Smoker Hypercalcemia with elevated PTH consistent with hyperparathyroidism PVD obtaining arterial ultrasound on 02/24/2022 Episode of chest pain negative EKG and troponin for ACS placed on aspirin Plan: O2 Nebs Supportive care Monitor closely Aggressive rehab DNR 02/21/2022: Add PTH to labs Taper down steroids 02/22/2022: Continue aggressive therapy 02/23/2022: Continued supportive care Dramatic improvement 02/24/2022: Arterial ultrasound Supportive care 02/25/2022: Discharge plan for Wednesday02/26/2022: Discharge home tomorrow (1) Acute respiratory failure with hypoxia and hypercapnia Status: Acute (2) HTN (hypertension) Status: Chronic (3) Acute exacerbation of chronic obstructive pulmonary disease (COPD) Status: Acute (4) Dementia (5) Respiratory failure Status: Acute Discharge Summary Discharge Physical Examination Allergies: Coded Allergies: Sulfa (Sulfonamide Antibiotics) (Verified Allergy, Unknown, 02/05/15) amlodipine (Verified Allergy, Unknown, 02/05/15) Vitals & I&Os Vital Signs Date Time Temp Pulse Resp B/P (MAP) Pulse Ox O2 Delivery O2 Flow Rate FiO2 02/27/22 16:08 36.5 66 18 174/68 97 Nasal Cannula 2.00 General Appearance: Alert, Oriented X3, Cooperative Respiratory: Clear to Auscultation Cardiovascular: Regular Rate Psych/Mental Status: Mental Status NL Hospital Course Was the Problem List Reviewed?: Yes Hospital course: Patient had a lengthy but productive hospital course after she was assessed to be in need of strengthening. She has been 8 days in the ICU for acute on chronic respiratory failure. She was on a prednisone taper dose along with other supportive care for severe end-stage COPD and she responded and was able to participate in all therapy and became stronger and was able to go home on home health with . Labs (last 24 hrs) Laboratory Tests 02/21/22 09:30: White Blood Count 15.0H, Red Blood Count 4.45, Hemoglobin 13.1, Hematocrit 40, Mean Corpuscular Volume 91, Mean Corpuscular Hemoglobin 29, Mean Corpuscular Hemoglobin Concent 33, Red Cell Distribution Width 13.0, Platelet Count 201, Mean Platelet Volume 10.5, Immature Granulocyte % (Auto) 2, Neutrophils (%) (Auto) 85H, Lymphocytes (%) (Auto) 6L, Monocytes (%) (Auto) 7, Eosinophils (%) (Auto) 0, Basophils (%) (Auto) 0, Neutrophils # (Auto) 12.9H, Lymphocytes # (Auto) 0.9L, Monocytes # (Auto) 1.0, Eosinophils # (Auto) 0.0, Basophils # (Auto) 0.0, Immature Granulocyte # (Auto) 0.2H, Neutrophils % (Manual) 81, Lymph ocytes % (Manual) 11, Monocytes % (Manual) 8, Blood Morphology Comment NORMAL, Sodium Level 136, Potassium Level 4.1, Chloride Level 100, Carbon Dioxide Level 26, Anion Gap 10, Blood Urea Nitrogen 22H, Creatinine 0.70, Estimat Glomerular Filtration Rate 90, BUN/Creatinine Ratio 31, Glucose Level 126H, Calcium Level 10.9H, Corrected Calcium 11.5H, Total Bilirubin 0.5, Aspartate Amino Transf (AST/SGOT) 36H, Alanine Aminotransferase (ALT/SGPT) 57H, Alkaline Phosphatase 74, Total Protein 6.3L, Albumin 3.3, Parathyroid Hormone (Intact) 122.7H, Calcium (PTH Intact) 11.0H 02/23/22 05:35: White Blood Count 11.2H, Red Blood Count 4.18, Hemoglobin 12.4, Hematocrit 39, Mean Corpuscular Volume 94, Mean Corpuscular Hemoglobin 30, Mean Corpuscular Hemoglobin Concent 32, Red Cell Distribution Width 12.8, Platelet Count 180, Mean Platelet Volume 10.8, Immature Granulocyte % (Auto) 2, Neutrophils (%) (Auto) 63, Lymphocytes (%) (Auto) 21, Monocytes (%) (Auto) 13H, Eosinophils (%) (Auto) 0, Basophils (%) (Auto) 0, Neutrophils # (Auto) 7.0, Lymphocytes # (Auto) 2.4, Monocytes # (Auto) 1.5H, Eosinophils # (Auto) 0.0, Basophils # (Auto) 0.0, Immature Granulocyte # (Auto) 0.2H, Sodium Level 138, Potassium Level 3.8, Chloride Level 101, Carbon Dioxide Level 29, Anion Gap 8, Blood Urea Nitrogen 27H, Creatinine 0.74, Estimat Glomerular Filtration Rate 84, BUN/Creatinine Ratio 36, Glucose Level 86, Calcium Level 11.0H, Corrected Calcium 11.6H, Total Bilirubin 0.4, Aspartate Amino Transf (AST/SGOT) 29, Alanine Aminotransferase (ALT/SGPT) 67H, Alkaline Phosphatase 68, Total Protein 6.0L, Albumin 3.2 02/26/22 19:40: Troponin I < 0.028 02/27/22 05:50: White Blood Count 8.7, Red Blood Count 3.56L, Hemoglobin 10.5L, Hematocrit 34L, Mean Corpuscular Volume 96, Mean Corpuscular Hemoglobin 30, Mean Corpuscular Hemoglobin Concent 31L, Red Cell Distribution Width 13.0, Platelet Count 200, Mean Platelet Volume 11.0, Immature Granulocyte % (Auto) 0, Neutrophils (%) (Auto) 57, Lymphocytes (%) (Auto) 33, Monocytes (%) (Auto) 10, Eosinophils (%) (Auto) 0, Basophils (%) (Auto) 0, Neutrophils # (Auto) 4.9, Lymphocytes # (Auto) 2.9, Monocytes # (Auto) 0.9, Eosinophils # (Auto) 0.0, Basophils # (Auto) 0.0, Immature Granulocyte # (Auto) 0.0, Sodium Level 144, Potassium Level 3.7, Chloride Level 104, Carbon Dioxide Level 31, Anion Gap 9, Blood Urea Nitrogen 12, Creatinine 0.65, Estimat Glomerular Filtration Rate 92, BUN/Creatinine Ratio 18, Glucose Level 90, Calcium Level 10.6H, Corrected Calcium 11.4H, Total Bilirubin 0.3, Aspartate Amino Transf (AST/SGOT) 20, Alanine Aminotransferase (ALT/SGPT) 50, Alkaline Phosphatase 53, Total Protein 5.5L, Albumin 3.0L, Troponin I < 0.028, Triglycerides Level 108, Cholesterol Level 202H, LDL Cholesterol Direct 145H, VLDL Cholesterol 22, HDL Cholesterol 36L, Thyroid Stimulating Hormone (TSH) 1.28 Pending Labs Laboratory Tests 02/21/22 09:30: White Blood Count 15.0, Red Blood Count 4.45, Hemoglobin 13.1, Hematocrit 40, Mean Corpuscular Volume 91, Mean Corpuscular Hemoglobin 29, Mean Corpuscular Hemoglobin Concent 33, Red Cell Distribution Width 13.0, Platelet Count 201, Mean Platelet Volume 10.5, Immature Granulocyte % (Auto) 2, Neutrophils (%) (Auto) 85, Lymphocytes (%) (Auto) 6, Monocytes (%) (Auto) 7, Eosinophils (%) (Auto) 0, Basophils (%) (Auto) 0, Neutrophils # (Auto) 12.9, Lymphocytes # (Auto) 0.9, Monocytes # (Auto) 1.0, Eosinophils # (Auto) 0.0, Basophils # (Auto) 0.0, Immature Granulocyte # (Auto) 0.2, Neutrophils % (Manual) 81, Lymphocytes % (Manual) 11, Monocytes % (Manual) 8, Blood Morphology Comment NORMAL, Sodium Level 136, Potassium Level 4.1, Chloride Level 100, Carbon Dioxide Level 26, Anion Gap 10, Blood Urea Nitrogen 22, Creatinine 0.70, Estimat Glomerular Filtration Rate 90, BUN/Creatinine Ratio 31, Glucose Level 126, Calcium Level 10.9, Corrected Calcium 11.5, Total Bilirubin 0.5, Aspartate Amino Transf (AST/SGOT) 36, Alanine Aminotransferase (ALT/SGPT) 57, Alkaline Phosphatase 74, Total Protein 6.3, Albumin 3.3, Parathyroid Hormone (Intact) 122.7, Calcium (PTH Intact) 11.0 02/23/22 05:35: White Blood Count 11.2, Red Blood Count 4.18, Hemoglobin 12.4, Hematocrit 39, Mean Corpuscular Volume 94, Mean Corpuscular Hemoglobin 30, Mean Corpuscular Hemoglobin Concent 32, Red Cell Distribution Width 12.8, Platelet Count 180, Mean Platelet Volume 10.8, Immature Granulocyte % (Auto) 2, Neutrophils (%) (Auto) 63, Lymphocytes (%) (Auto) 21, Monocytes (%) (Auto) 13, Eosinophils (%) (Auto) 0, Basophils (%) (Auto) 0, Neutrophils # (Auto) 7.0, Lymphocytes # (Auto) 2.4, Monocytes # (Auto) 1.5, Eosinophils # (Auto) 0.0, Basophils # (Auto) 0.0, Immature Granulocyte # (Auto) 0.2, Sodium Level 138, Potassium Level 3.8, Chloride Level 101, Carbon Dioxide Level 29, Anion Gap 8, Blood Urea Nitrogen 27, Creatinine 0.74, Estimat Glomerular Filtration Rate 84, BUN/Creatinine Ratio 36, Glucose Level 86, Calcium Level 11.0, Corrected Calcium 11.6, Total Bilirub in 0.4, Aspartate Amino Transf (AST/SGOT) 29, Alanine Aminotransferase (ALT/SGPT) 67, Alkaline Phosphatase 68, Total Protein 6.0, Albumin 3.2 02/26/22 19:40: Troponin I < 0.028 02/27/22 05:50: White Blood Count 8.7, Red Blood Count 3.56, Hemoglobin 10.5, Hematocrit 34, Mean Corpuscular Volume 96, Mean Corpuscular Hemoglobin 30, Mean Corpuscular Hemoglobin Concent 31, Red Cell Distribution Width 13.0, Platelet Count 200, Mean Platelet Volume 11.0, Immature Granulocyte % (Auto) 0, Neutrophils (%) (Auto) 57, Lymphocytes (%) (Auto) 33, Monocytes (%) (Auto) 10, Eosinophils (%) (Auto) 0, Basophils (%) (Auto) 0, Neutrophils # (Auto) 4.9, Lymphocytes # (Auto) 2.9, Monocytes # (Auto) 0.9, Eosinophils # (Auto) 0.0, Basophils # (Auto) 0.0, Immature Granulocyte # (Auto) 0.0, Sodium Level 144, Potassium Level 3.7, Chloride Level 104, Carbon Dioxide Level 31, Anion Gap 9, Blood Urea Nitrogen 12, Creatinine 0.65, Estimat Glomerular Filtration Rate 92, BUN/Creatinine Ratio 18, Glucose Level 90, Calcium Level 10.6, Corrected Calcium 11.4, Total Bilirubin 0.3, Aspartate Amino Transf (AST/SGOT) 20, Alanine Aminotransferase (ALT/SGPT) 50, Alkaline Phosphatase 53, Total Protein 5.5, Albumin 3.0, Troponin I < 0.028, Triglycerides Level 108, Cholesterol Level 202, LDL Cholesterol Direct 145, VLDL Cholesterol 22, HDL Cholesterol 36, Thyroid Stimulating Hormone (TSH) 1.28 Discharge Home Medications: Active Scripts Active Lipitor (Atorvastatin Calcium) 40 Mg Tablet 40 Mg PO DAILY Prednisone 10 Mg Tab.ds.pk 10 Mg PO DAILY Take 4 tabs(40mg)daily,decrease by 1 tab(10MG)daily. Topamax (Topiramate) 25 Mg Tablet 25 Mg PO DAILY Spironolactone 25 Mg Tablet 6.25 Mg PO DAILY Carvedilol 6.25 Mg Tablet 12.5 Mg PO BID Clonidine HCl 0.1 Mg Tablet 0.1 Mg PO BID Clonidine HCl 0.1 Mg Tablet 0.1 Mg PO Q4HR PRN Iprat-Albut 0.5-3(2.5) mg/3 ml (Ipratropium/Albuterol Sulfate) 0.5 Mg-3 Mg (2.5 Mg Base)/3 Ml Ampul.neb 3 Ml IH TID PRN Reported Aspirin EC (Aspirin) 81 Mg Tablet.dr 81 Mg PO DAILY Vitamin D3 (Cholecalciferol (Vitamin D3)) 25 Mcg (1000 Unit) Tablet 25 Mcg PO DAILY Meloxicam 15 Mg Tablet 15 Mg PO DAILY Lisinopril 40 Mg Tablet 40 Mg PO DAILY Diazepam 5 Mg Tablet 5 Mg PO TID PRN Ventolin Hfa (Albuterol Sulfate) 8.5 Gm Hfa.aer.ad 2 Puff IH Q4H PRN Instructions to patient/family Please see electronic discharge instructions given to patient. Diagnosis/Problems Diagnosis/Problems (1) Acute respiratory failure with hypoxia and hypercapnia Status: Acute (2) HTN (hypertension) Status: Chronic (3) Acute exacerbation of chronic obstructive pulmonary disease (COPD) Status: Acute (4) Dementia (5) Respiratory failure Status: Acute LORENA OSULLIVAN DO Feb 27, 2022 05:23
--- NOTE | 2022-02-27 05:23 | D/C HH Face to Face Order ---
D/C Face to Face Orders Reconcile Patient Problems Problems Reviewed?: Yes Instructions for Patient Татьяна Patient Instructions/FollowUp: PCP 1 week Physician to follow Patient: PCP Discharge Diet for Home: No Restrictions Patient Problems: COPD Patient Data-Allergies,Ht & Wt Patient Allergies: Coded Allergies: Sulfa (Sulfonamide Antibiotics) (Verified Allergy, Unknown, 02/05/15) amlodipine (Verified Allergy, Unknown, 02/05/15) Height (Feet): 4 Height (Inches): 11.00 Weight (Pounds): 151 Weight (Ounces): 14.8 Home Health Need/Face to Face Date of Face to Face: Feb 27, 2022 Clinical Findings: Generalized weakness and fatigue, Instability, Muscle weakness, Shortness of breath I have seen Pt [id number]: Yes Discharged To: Home Diagnosis/Conditions: Debility Patient is Homebound due to: Adam fall risk due to instabilty, Muscle weakness Homebound Status Due to the above stated illness, injury or surgical procedure (medical condition or diagnosis) and associated clinical findings, the patient is homebound because of his/her inability to leave home except with aid of a supportive device and/or person AND leaving the home requires a considerable and taxing effort or is medically contraindicated. Pt req the following assistanc: Walker Home Health Nursing Orders Home Health Services Order: Nursing Services, Investment Accounting Clerk-Evaluate & Treat, Physical Therapy-Evaluate & Treat Certify Stmt I certify that this patient is under my care and that I, a nurse practitioner or a physician; a psychiatric assistant working with me, had a face to face encounter that - meets the physician face to face encounter requirements with this patient as dated. LORENA OSULLIVAN DO Feb 27, 2022 05:23
[2022-02-27 06:03] LABS: BASOPHILS % (AUTO) 0 % (0-10); EOSINOPHILS % (AUTO) 0 % (0-10); HEMATOCRIT 34 % (35-52); HEMOGLOBIN 10.5 g/dL (11.5-16.0); LYMPHOCYTES # (AUTO) 2.9 10^3/uL (1.0-4.0); LYMPHOCYTES % (AUTO) 33 % (12-44); MEAN CORPUSCULAR HEMOGLOBIN 30 pg (25-34); MEAN CORPUSCULAR HGB CONC 31 g/dL (32-36); MEAN CORPUSCULAR VOLUME 96 fL (80-99); MONOCYTES # (AUTO) 0.9 10^3/uL (0.0-1.0); MONOCYTES % (AUTO) 10 % (0-12); NEUTROPHILS # (AUTO) 4.9 10^3/uL (1.8-7.8); NEUTROPHILS % (AUTO) 57 % (42-75); PLATELET COUNT 200 10^3/uL (130-400); WHITE BLOOD COUNT 8.7 10^3/uL (4.3-11.0)
[2022-02-27] MEDS: predniSONE 20 MG TAB PO SCH (06:11)
[2022-02-27] MEDS: CATHETER FLUSH 10 ML SYR IVP SCH (06:12)
[2022-02-27 06:15] LABS: CHLORIDE 104 MMOL/L (98-107); POTASSIUM 3.7 MMOL/L (3.6-5.0); SODIUM 144 MMOL/L (135-145)
[2022-02-27 06:16] LABS: CALCIUM 10.6 MG/DL (8.5-10.1)
[2022-02-27 06:17] LABS: TOTAL PROTEIN 5.5 GM/DL (6.4-8.2); TRIGLYCERIDES 108 MG/DL (<150); VLDL CHOLESTEROL 22 MG/DL (5-40)
[2022-02-27 06:18] LABS: CARBON DIOXIDE 31 MMOL/L (21-32); GLUCOSE 90 MG/DL (70-105)
[2022-02-27 06:19] LABS: BILIRUBIN,TOTAL 0.3 MG/DL (0.1-1.0)
[2022-02-27 06:21] LABS: ALKALINE PHOSPHATASE 53 U/L (40-136); CREATININE SERUM 0.65 MG/DL (0.60-1.30); GFR ESTIMATED 92
[2022-02-27 06:22] LABS: BUN/CREATININE RATIO 18; CHOLESTEROL 202 MG/DL (< 200)
[2022-02-27 06:23] LABS: HDL CHOLESTEROL 36 MG/DL (40-60)
[2022-02-27 06:24] LABS: ALANINE AMINOTRANSFERASE 50 U/L (0-55)
[2022-02-27 07:35] VITALS: BP 212/91
[2022-02-27] MEDS: SPIRONOLACTONE 25 MG (ALDACTONE) TAB PO SCH (07:37)
[2022-02-27] MEDS: cloNIDine 0.1 MG (CATAPRES) TAB PO SCH (07:37)
[2022-02-27] MEDS: toPIRamate 25 MG (TOPAMAX) TAB PO SCH (07:37)
[2022-02-27] MEDS: lisINopril 20 MG (PRINIVIL) TABLET PO SCH (07:38)
[2022-02-27] MEDS: NICOTINE 21 MG (NICODERM) PATCH TD SCH (07:38)
--- NOTE | 2022-02-27 07:51 | Therapy Team Discharge Summary ---
Therapy Discharge Summary Discharge Recommendations Date of Discharge Physical Therapy Roll Left to Right (QC): 6 Sit to Lying (QC): 6 Lying to Sitting/Side of Bed(Q: 6 Sit to Stand (QC): 6 Chair/Kzi-rp-Mwvfr Xfer(QC): 6 Toilet Transfer (QC): 5 Car Transfer (QC): 6 Does the Patient Walk: Yes Walk 10 feet (QC): 6 Walk 50 ft with 2 Turns(QC): 6 Walk 150 ft (QC): 6 Walking 10ft on uneven surface: 6 Distance: 10'x2 Gait Assistive Device: FWW Does the Pt Use a Wheelchair: No Wheel 50 ft with 2 turns (QC): 1 Wheel 150 ft (QC): 1 #of Steps: 12 1 Step (curb) (QC): 6 4 Steps (QC): 6 12 Steps (QC): 6 Balance Sitting Static: Fair Balance Sitting Dynamic: Fair Balance-Standing Static: Poor Picking up an Object (QC): 6 Occupational Therapy Pt admitted to ARU with AECOPD; a/c respiratory failure. At [facility], pt was independent with ADLS and functional mobility, no AD. Upon initial evaluation, pt was independent with eating, oral care, and footwear, required min A with showering, LE dressing and toileting, and SBA UE dressing. OT Tx focused on increasing BUE strength and activity tolerance, and increasing safety and independence with ADLs and functional mobility. Pt made good progress towards goals, attaining IND level with all ADLs, and meeting all LTGs. Pt scheduled to discharge home with spouse today, d/c from OT. Decreased Activ Tolerance, Decreased UE Strength, Impaired I ADL's Eating (QC): 6 Oral Hygiene (QC): 6 Shower/Bathe Self (QC): 6 Upper Body Dressing (QC): 6 Lower Body Dressing (QC): 6 On/Off Footwear (QC): 6 Toileting Hygiene (QC): 6 PT Talent Manager Goals Talent Manager Goals PT Halfway Goals Time Frame: Mar 06, 2022 Roll Left to Right (QC): 6 Sit to Lying (QC): 6 Lying-Sitting on Side/Bed(QC): 6 Sit to Stand (QC): 4 (SBA) Chair/Ait-hr-Uaqvs Xfer(QC): 4 (SBA) Toilet/Commode Transfer (QC): 4 (SBA) Car Transfer (QC): 4 (SBA) Does the Patient Walk: Yes Walk 10 feet (QC): 4 (SBA) Walk 10ft-Uneven Surface(QC): 4 (SBA) Walk 50ft with 2 Turns (QC): 4 (SBA) Walk 150 ft (QC): 4 (SBA) Wheel 50 feet with 2 turns (QC: 9 Wheel 150 feet: 9 1 Step (curb) (QC): 4 (CGA) 4 Steps (QC): 4 (CGA) 12 Steps (QC): 88 Picking up an Object (QC): 4 (CGA using a computer graphic designer) OT Halfway Goals Halfway Goals Time Frame: Mar 13, 2022 Acute change in mental status: 0 Inattention: 0 Disorganized thinkin Altered level of consciousness: 0 Eating (QC): 6 (met) Oral Hygiene (QC): 6 (met) Toileting Hygiene (QC): 6 (met) Shower/Bathe Self (QC): 6 (met) Upper Body Dressing (QC): 6 (met) Lower Body Dressing (QC): 6 (met) On/Off Footwear (QC): 6 (met) Additional Goals: 1-Demonstrate ADL Tasks, 2-Verbalize Understanding, 3- ImproveStrength/Lou 1=Demonstrate adherence to instructed precautions during ADL tasks. 2=Patient will verbalize/demonstrate understanding of assistive devices/modifications for ADL. 3=Patient will improve strength/tolerance for activity to enable patient to perform ADL's. SAMMY BRENNER OT Feb 27, 2022 07:51
[2022-02-27 08:28] VITALS: BP 184/68
[2022-02-27] MEDS: PATCH REMOVAL TP SCH (08:38)
[2022-02-27] MEDS: polyethylene glycoL POWDER 17 GM (MIRALAX) PACK PO SCH (08:39)
[2022-02-27] MEDS: SENNA W/DOCUSATE (SENOKOT S) TABLET PO SCH (08:39)
[2022-02-27] MEDS: DOCUSATE SODIUM 100 MG (COLACE) CAP PO SCH (08:39)
[2022-02-27] MEDS ORDERED: ASPIRIN 81 MG CHEW (CHILDREN'S ASA) PO SCH (09:00)
[2022-02-27 09:26] VITALS: BP 174/68
[2022-02-27] MEDS ORDERED: LOSARTAN 50 MG (COZAAR) TAB PO SCH (12:30)
--- NOTE | 2022-02-27 12:41 | Therapy Team Discharge Summary ---
Therapy Discharge Summary Discharge Recommendations Date of Discharge Physical Therapy Patient came to rehab with Acute exacerbation of COPD with respiratory distress, flu A. Upon evaluation patient performs rolling with SBA, supine <-> sit min assist, sit <-> stand and transfers min assist, car transfer min assist, ambulate 10' with a rolling walker with min assist (including 10' over an uneven surface), dependent for WC mobility. Patient has been performing bed mobility and transfer training,balance and endurance training, functional strengthening, stair training, gait training, and education. 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 Now, patient performs rolling and supine <-> sit with independence, sit <-> stand and transfers independent, car transfer independent, ambulates 175' with a rolling walker with independence (including 50' with at least 2 turns of 90 degrees and 10' over an uneven surface), can go up and down 12 steps using 2 handrails with independence, and can picker machine operator an object from the floor with independence. Patient is being discharged from this facility today and will be discharged from PT at this time. Roll Left to Right (QC): 6 Sit to Lying (QC): 6 Lying to Sitting/Side of Bed(Q: 6 Sit to Stand (QC): 6 Chair/Ose-id-Bivwk Xfer(QC): 6 Toilet Transfer (QC): 6 Car Transfer (QC): 6 Does the Patient Walk: Yes Walk 10 feet (QC): 6 Walk 50 ft with 2 Turns(QC): 6 Walk 150 ft (QC): 6 Walking 10ft on uneven surface: 6 Distance: 10'x2 Gait Assistive Device: FWW Does the Pt Use a Wheelchair: No Wheel 50 ft with 2 turns (QC): 9 Wheel 150 ft (QC): 9 #of Steps: 12 1 Step (curb) (QC): 6 4 Steps (QC): 6 12 Steps (QC): 6 Balance Sitting Static: Fair Balance Sitting Dynamic: Fair Balance-Standing Static: Poor Picking up an Object (QC): 6 Occupational Therapy Decreased Activ Tolerance, Decreased UE Strength, Impaired I ADL's Eating (QC): 6 Oral Hygiene (QC): 6 Shower/Bathe Self (QC): 6 Upper Body Dressing (QC): 6 Lower Body Dressing (QC): 6 On/Off Footwear (QC): 6 Toileting Hygiene (QC): 6 PT Correction Goals Correction Goals PT Correction Goals Time Frame: Mar 06, 2022 Roll Left to Right (QC): 6 Sit to Lying (QC): 6 Lying-Sitting on Side/Bed(QC): 6 Sit to Stand (QC): 4 (SBA) Chair/Bae-ii-Sousi Xfer(QC): 4 (SBA) Toilet/Commode Transfer (QC): 4 (SBA) Car Transfer (QC): 4 (SBA) Does the Patient Walk: Yes Walk 10 feet (QC): 4 (SBA) Walk 10ft-Uneven Surface(QC): 4 (SBA) Walk 50ft with 2 Turns (QC): 4 (SBA) Walk 150 ft (QC): 4 (SBA) Wheel 50 feet with 2 turns (QC: 9 Wheel 150 feet: 9 1 Step (curb) (QC): 4 (CGA) 4 Steps (QC): 4 (CGA) 12 Steps (QC): 88 Picking up an Object (QC): 4 (CGA using a automatic print developer) OT Correction Goals Shredded Filler Machine Wrapper Layer Goals Time Frame: Mar 13, 2022 Acute change in mental status: 0 Inattention: 0 Disorganized thinkin Altered level of consciousness: 0 Eating (QC): 6 (met) Oral Hygiene (QC): 6 (met) Toileting Hygiene (QC): 6 (met) Shower/Bathe Self (QC): 6 (met) Upper Body Dressing (QC): 6 (met) Lower Body Dressing (QC): 6 (met) On/Off Footwear (QC): 6 (met) Additional Goals: 1-Demonstrate ADL Tasks, 2-Verbalize Understanding, 3- ImproveStrength/Lou 1=Demonstrate adherence to instructed precautions during ADL tasks. 2=Patient will verbalize/demonstrate understanding of assistive devices/modifications for ADL. 3=Patient will improve strength/tolerance for activity to enable patient to perform ADL's. STEFFNAIE ANGLIN PT Feb 27, 2022 12:41
--- NOTE | 2022-02-27 12:58 | Consultation-Cardiology ---
HPI-Cardiology Cardiology Consultation Date of Consultation 02/27/22 Date of Admission Time Seen by Provider: 12:55 Indication: Chest pain, hypertension HPI 76-year-old lady with history of coronary artery disease, CABG x2 done in 2011, hypertension hyperlipidemia, follows with Dr. Jacobo. She was admitted for respiratory failure increasing shortness of breath and acute exacerbation of COPD. Patient has been improving. Had an episode of chest discomfort yesterday, in the retrosternal area, EKG did not show any acute abnormality. Currently feeling better and patient is being prepared for discharge home. She was noted to have severe hypertension that has been resistant to multiple medication especially while she was on steroids. Home Medications & Allergies Allergies: Coded Allergies: Sulfa (Sulfonamide Antibiotics) (Verified Allergy, Unknown, 02/05/15) amlodipine (Verified Allergy, Unknown, 02/05/15) Home Medication List Reviewed: Yes DSG-[id number]-Qlrlks Hx Patient Social History Marital Status: Employed/Student: retired Smoking Status: Current Everyday Smoker Have you traveled recently?: No Alcohol Use?: No Immunizations Up To Date Tetanus Booster (TDap): More than 5yrs Date of Pneumonia Vaccine: Jan 29, 2014 Date of Influenza Vaccine: Feb 05, 2015 Past Medical History Discussed below Family Medical History Significant Family History: Heart Disease, COPD Family History: Patient reports no known family medical history. Review of Systems-General Review of Systems Constitutional: see HPI, malaise, weakness EENTM: no symptoms reported Respiratory: dyspnea on exertion, short of breath Cardiovascular: no symptoms reported Gastrointestinal: no symptoms reported Musculoskeletal: no symptoms reported Skin: no symptoms reported Psychiatric/Neurological: No Symptoms Reported All Other Systems Reviewed Negative Unless Noted: Yes Reviewed Test Results Reviewed Test Results Lab Laboratory Tests Test 02/26/22 19:40 02/27/22 05:50 Range/Units Troponin I < 0.028 < 0.028 <0.028 NG/ML White Blood Count 8.7 4.3-11.0 10^3/uL Red Blood Count 3.56 L 3.80-5.11 10^6/uL Hemoglobin 10.5 L 11.5-16.0 g/dL Hematocrit 34 L 35-52 % Mean Corpuscular Volume 96 80-99 fL Mean Corpuscular Hemoglobin 30 25-34 pg Mean Corpuscular Hemoglobin Concent 31 L 32-36 g/dL Red Cell Distribution Width 13.0 10.0-14.5 % Platelet Count 200 130-400 10^3/uL Mean Platelet Volume 11.0 9.0-12.2 fL Immature Granulocyte % (Auto) 0 % Neutrophils (%) (Auto) 57 42-75 % Lymphocytes (%) (Auto) 33 12-44 % Monocytes (%) (Auto) 10 0-12 % Eosinophils (%) (Auto) 0 0-10 % Basophils (%) (Auto) 0 0-10 % Neutrophils # (Auto) 4.9 1.8-7.8 10^3/uL Lymphocytes # (Auto) 2.9 1.0-4.0 10^3/uL Monocytes # (Auto) 0.9 0.0-1.0 10^3/uL Eosinophils # (Auto) 0.0 0.0-0.3 10^3/uL Basophils # (Auto) 0.0 0.0-0.1 10^3/uL Immature Granulocyte # (Auto) 0.0 0.0-0.1 10^3/uL Sodium Level 144 135-145 MMOL/L Potassium Level 3.7 3.6-5.0 MMOL/L Chloride Level 104 98-107 MMOL/L Carbon Dioxide Level 31 21-32 MMOL/L Anion Gap 9 5-14 MMOL/L Blood Urea Nitrogen 12 7-18 MG/DL Creatinine 0.65 0.60-1.30 MG/DL Estimat Glomerular Filtration Rate 92 BUN/Creatinine Ratio 18 Glucose Level 90 70-105 MG/DL Calcium Level 10.6 H 8.5-10.1 MG/DL Corrected Calcium 11.4 H 8.5-10.1 MG/DL Total Bilirubin 0.3 0.1-1.0 MG/DL Aspartate Amino Transf (AST/SGOT) 20 5-34 U/L Alanine Aminotransferase (ALT/SGPT) 50 0-55 U/L Alkaline Phosphatase 53 40-136 U/L Total Protein 5.5 L 6.4-8.2 GM/DL Albumin 3.0 L 3.2-4.5 GM/DL Triglycerides Level 108 <150 MG/DL Cholesterol Level 202 H < 200 MG/DL LDL Cholesterol Direct 145 H 1-129 MG/DL VLDL Cholesterol 22 5-40 MG/DL HDL Cholesterol 36 L 40-60 MG/DL Thyroid Stimulating Hormone (TSH) 1.28 0.35-4.94 UIU/ML Physical Exam Physical Exam Vital Signs Vital Signs - First Documented 02/21/22 02/21/22 02:38 07:50 Temp 36.4 Pulse 92 Resp 18 B/P (MAP) 205/97 (133) Pulse Ox 96 O2 Delivery Nasal Cannula O2 Flow Rate 2.00 Capillary Refill : Height, Weight, BMI Height: 4'11.00" Weight: 151lbs. 14.8oz. 68.495110xp; 22.22 BMI Method:Stated General Appearance: WD/WN, Anxious, Chronically ill Eyes: Bilateral Eye Normal Inspection, Bilateral Eye PERRL HEENT: PERRL/EOMI, Normal ENT Inspection, Pharynx Normal Neck: Full Range of Motion, Normal Inspection, Non Tender, Supple, Carotid Bruit Respiratory: Chest Non Tender, No Accessory Muscle Use, No Respiratory Distress, Decreased Breath Sounds Cardiovascular: Regular Rate, Rhythm, No Edema, No Gallop, No JVD, No Murmur, Normal Peripheral Pulses Gastrointestinal: Normal Bowel Sounds, No Organomegaly, No Pulsatile Mass, Non Tender, Soft Back: Normal Inspection, No CVA Tenderness, No Vertebral Tenderness Extremity: Normal Capillary Refill, Normal Inspection, Normal Range of Motion, Non Tender, No Calf Tenderness, No Pedal Edema Neurologic/Psychiatric: Alert, Oriented x3, No Motor/Sensory Deficits, nuclear pharmacist II- XII Norm as Tested, Abnormal Gait, Depressed Affect, Motor Weakness (Generalized) Skin: Normal Color, Warm/Dry Lymphatic: No Adenopathy A/P-Cardiology Admission Diagnosis Chest pain Coronary artery disease Hypertension Hyperlipidemia Assessment/Plan Chest pain nonspecific etiology, probably unstable angina EKG did not show any acute abnormality, discussed the management plan, recommend evaluating stress test once she is clinically more stable, 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 Coronary artery disease, history of CABG x2 done in 2011. No recent cardiac work-up, she will need to have a stress test done as an outpatient Hypertension, labile blood pressure, poorly controlled. Probably secondary to the steroid Coreg 12.5 mg twice daily and lisinopril 40 mg daily were continued I agree with using clonidine and increase the dose as needed with monitoring blood pressure Hyperlipidemia, monitor lipids COPD, acute exacerbation, currently better. Managed by medical team. Status post influenza A. Improved. Status post change in mental status, currently back to baseline. NICO JIMENEZ MD Feb 27, 2022 12:58
[2022-02-27 16:08] VITALS: BP 174/68
== END 2022-02-27 14:00 | disposition home health service (06) | DRG 91 ==
PROVIDERS: ADMIT Internal Medicine; ATTEND Internal Medicine
DX: G72.89 Other specified myopathies (principal); J96.21 Acute and chronic respiratory failure with hypoxia; J96.22 Acute and chronic respiratory failure with hypercapnia; J44.0 Chronic obstructive pulmonary disease with (acute) lower respiratory infection; J44.1 Chronic obstructive pulmonary disease with (acute) exacerbation; F03.90 Unspecified dementia, unspecified severity, without behavioral disturbance, psychotic disturbance, mood disturbance, and anxiety; I25.10 Atherosclerotic heart disease of native coronary artery without angina pectoris; I10 Essential (primary) hypertension; Z66 Do not resuscitate; F17.210 Nicotine dependence, cigarettes, uncomplicated; K21.9 Gastro-esophageal reflux disease without esophagitis; E83.42 Hypomagnesemia; E83.52 Hypercalcemia; F41.9 Anxiety disorder, unspecified; F32.A Depression, unspecified; Z95.1 Presence of aortocoronary bypass graft; Z99.81 Dependence on supplemental oxygen; Z88.2 Allergy status to sulfonamides; Z88.8 Allergy status to other drugs, medicaments and biological substances; Z79.82 Long term (current) use of aspirin
CPT/HCPCS: 36415; 80053; 80061; 83970; 84443; 84484; 85007; 85025; 85027; 93005; 93306; 93925; 94640; 94760; 94761

== ENCOUNTER 2022-07-09 13:02 | Observation (INO) | payer MEDICARE, OTHER ==
[~2022-07-09] VITALS: Ht 156 cm; Wt 59.0 kg
[~2022-07-09 13:02] MED LIST changes: +ATOR40TA PO; +CLN.1T PO; -POTA10CA43 PO; +POTA10CA44 PO; +PRED10TA22 PO; +TPR25T PO
[2022-07-09] MEDS ORDERED: methylPREDNISolone 40 MG/ML (Solu-MEDROL) VIAL IV ONE (13:15)
[2022-07-09] MEDS ORDERED: RT-ALBUTEROL/IPRATROPIUM 3 ML (DUONEB) VIAL INH ONE (13:15)
--- NOTE | 2022-07-09 13:17 | ED Cough/URI ---
General Chief Complaint: Respiratory Problems Stated Complaint: SOA Nursing Triage Note: PICKED UP AT HOME WITH INCREASED SOA. WEARS OXYGEN PRN AT HOME. EMS REPORTS PULSE OX 95% AT HOME. IS SEEN BY HOME HEALTH AND THEY THINK SHE HAS PNEUMONIA. Source: patient Exam Limitations: no limitations History of Present Illness Date Seen by Provider: July 09, 2022 Time Seen by Provider: 13:14 Initial Comments Patient is a 76-year-old female with a history of coronary artery disease, COPD, hypertension, dyslipidemia who was brought to the ED by EMS for increased shortness of breath. Symptoms started last night. She states she was trying to sleep at the time of acute onset. Worsening short of breath throughout the nigh. She does wear a 3-1/2 L of oxygen at night. Home health visited patient this morning noted increased work of breathing. Had diminished lung sounds. Did use her rescue inhaler with some improvement. EMS was contacted and was brought to the ED for further evaluation. Patient was placed on 2 L of oxygen. 95% on room air on arrival with mild increase work of breathing. She states her breathing appears to be improving some. She denies of any chest pain, abdominal pain, vomiting, diarrhea, headache, fever dizziness, visual changes. She does report a mild productive cough. She reports a daily cough and daily smoker. Denies of any blood tinge in her mucus. Allergies and Home Medications Allergies Coded Allergies: Sulfa (Sulfonamide Antibiotics) (Verified Allergy, Unknown, 02/05/15) amlodipine (Verified Allergy, Unknown, 02/05/15) Patient Home Medication List Home Medication List Reviewed: Yes Albuterol Sulfate (Ventolin Hfa) 8.5 Gm Hfa.aer.ad, 2 PUFF IH Q4H PRN for SHORTNESS OF BREATH, (Reported) Entered as Reported by: STACIE VITAL on 04/29/15 1129 Aspirin (Aspirin EC) 81 Mg Tablet.dr, 81 MG PO DAILY, (Reported) Entered as Reported by: MAC RENAE on 02/13/22 1658 Atorvastatin Calcium (Lipitor) 40 Mg Tablet, 40 MG PO DAILY Prescribed by: LORENA OSULLIVAN on 02/27/22520 Carvedilol (Carvedilol) 6.25 Mg Tablet, 12.5 MG PO BID Prescribed by: LORENA OSULLIVAN on 02/27/22520 Cholecalciferol (Vitamin D3) (Vitamin D3) 25 Mcg (1000 Unit) Tablet, 25 MCG PO DAILY, (Reported) Entered as Reported by: MAC RENAE on 02/13/221656 Clonidine HCl (Clonidine HCl) 0.1 Mg Tablet, 0.1 MG PO Q4HR PRN for sbp>160 Prescribed by: LORENA OSULLIVAN on 02/27/22520 Clonidine HCl (Clonidine HCl) 0.1 Mg Tablet, 0.1 MG PO BID Prescribed by: LORENA OSULLIVAN on 02/27/22520 Diazepam (Diazepam) 5 Mg Tablet, 5 MG PO TID PRN for ANXIETY, (Reported) Entered as Reported by: MAC RENAE on 02/13/221656 Ipratropium/Albuterol Sulfate (Iprat-Albut 0.5-3(2.5) mg/3 ml) 0.5 Mg-3 Mg (2.5 Mg Base)/3 Ml Ampul.neb, 3 ML IH TID PRN for SHORTNESS OF BREATH Prescribed by: LORENA OSULLIVAN on 02/27/22520 Lisinopril (Lisinopril) 40 Mg Tablet, 40 MG PO DAILY, (Reported) Entered as Reported by: MAC RENAE on 02/13/221656 Meloxicam (Meloxicam) 15 Mg Tablet, 15 MG PO DAILY, (Reported) Entered as Reported by: MAC RENAE on 02/13/221656 Prednisone (Prednisone) 10 Mg Tab.ds.pk, 10 MG PO DAILY Prescribed by: LORENA OSULLIVAN on 02/27/22520 Spironolactone (Spironolactone) 25 Mg Tablet, 6.25 MG PO DAILY Prescribed by: LORENA OSULLIVAN on 02/27/22520 Topiramate (Topamax) 25 Mg Tablet, 25 MG PO DAILY Prescribed by: LORENA OSULLIVAN on 02/27/22520 Review of Systems Review of Systems Constitutional: No chills EENTM: No ear pain, No blurred vision, No double vision, No mouth pain, No throat pain, No throat swelling Respiratory: cough, short of breath Cardiovascular: No chest pain Gastrointestinal: No abdominal pain, No diarrhea, No dysphagia, No nausea, No vomiting Genitourinary: No decreased output, No discharge, No dysuria Musculoskeletal: No back pain, No joint pain Skin: No change in color All Other Systems Reviewed Negative Unless Noted: Yes Past Sayftol-Kvvoby-Xemhvx Hx Patient Social History Tobacco Use?: Yes Tobacco type used: Cigarettes Smoking Status: Current Everyday Smoker Substance use?: No Alcohol Use?: No Immunizations Up To Date Tetanus Booster (TDap): More than 5yrs First/Initial COVID19 Vaccinat: YES Second COVID19 Vaccination Levar: YES Past Medical History Surgery/Hospitalization HX: CABG 2012, CAD,HTN, COPD, Bronchitis CABG, Hysterectomy COPD Currently Using CPAP: No Currently Using BIPAP: No Hypertension Reproductive Disorders: No [employer] History: Hysterectomy Sexually Transmitted Disease: No HIV/AIDS: No Bladder Infection, UTI-Chronic Gastroesophageal Reflux Sleep Difficulties, Anxiety, Suicide Attempts, Depression Adverse Reaction/Blood Tranf: No Family Medical History Patient reports no known family medical history. Heart Disease, COPD Physical Exam Vital Signs - First Documented 07/09/22 07/09/22 13:04 13:14 Temp 36.0 Pulse 78 Resp 16 B/P (MAP) 177/78 (111) Pulse Ox 97 O2 Delivery Nasal Cannula O2 Flow Rate 2.00 FiO2 97 Capillary Refill : Less Than 3 Seconds Height: 4'11.00" Weight: 151lbs. 14.8oz. [id number]; 24.00 BMI Method:Stated General Appearance: WD/WN, no apparent distress Eyes: Bilateral Eye Normal Inspection, Bilateral Eye PERRL, Bilateral Eye EOMI HEENT: PERRL/EOMI, normal ENT inspection, TMs normal, pharynx normal Neck: non-tender, full range of motion, supple, normal inspection Respiratory: chest non-tender, lungs clear, normal breath sounds, no respiratory distress, no accessory muscle use Cardiovascular: regular rate, rhythm, no edema, no gallop, no JVD Gastrointestinal: normal bowel sounds, non tender, soft, no organomegaly Extremities: normal range of motion, non-tender, normal inspection, no pedal edema Neurologic/Psychiatric: silo painter II-XII nml as tested, no motor/sensory deficits, alert, normal mood/affect, oriented x 3 Skin: normal color, warm/dry Procedures/Interventions Patient Education: Explained Benefits, Explained Risks, Pt. Ack. Understanding Breath Sounds per Auscultation: Clear Airway Exam: Mouth opens >2 fingers, Neck Full Range of Motion Sedation Adminstration Time: 1311 Re-examination Time: 1400 Progress/Results/Core Measures Suspected Sepsis SIRS Temperature: Pulse: 78 Respiratory Rate: 16 Laboratory Tests 07/09/22 13:20: White Blood Count 13.9H Blood Pressure 177 /78 Mean: 111 Laboratory Tests 07/09/22 13:20: Creatinine 0.84, INR Comment 1.0, Platelet Count 202, Total Bilirubin 0.4 Results/Orders Lab Results Laboratory Tests Test 07/09/22 13:20 Range/Units White Blood Count 13.9 H 4.3-11.0 10^3/uL Red Blood Count 4.67 3.80-5.11 10^6/uL Hemoglobin 13.7 11.5-16.0 g/dL Hematocrit 43 35-52 % Mean Corpuscular Volume 91 80-99 fL Mean Corpuscular Hemoglobin 29 25-34 pg Mean Corpuscular Hemoglobin Concent 32 32-36 g/dL Red Cell Distribution Width 12.5 10.0-14.5 % Platelet Count 202 130-400 10^3/uL Mean Platelet Volume 11.6 9.0-12.2 fL Immature Granulocyte % (Auto) 0 % Neutrophils (%) (Auto) 81 H 42-75 % Lymphocytes (%) (Auto) 10 L 12-44 % Monocytes (%) (Auto) 8 0-12 % Eosinophils (%) (Auto) 0 0-10 % Basophils (%) (Auto) 0 0-10 % Neutrophils # (Auto) 11.2 H 1.8-7.8 10^3/uL Lymphocytes # (Auto) 1.4 1.0-4.0 10^3/uL Monocytes # (Auto) 1.1 H 0.0-1.0 10^3/uL Eosinophils # (Auto) 0.0 0.0-0.3 10^3/uL Basophils # (Auto) 0.1 0.0-0.1 10^3/uL Immature Granulocyte # (Auto) 0.1 0.0-0.1 10^3/uL Prothrombin Time 12.9 12.2-14.7 SEC INR Comment 1.0 0.8-1.4 Activated Partial Thromboplast Time 31 24-35 SEC Sodium Level 136 135-145 MMOL/L Potassium Level 4.0 3.6-5.0 MMOL/L Chloride Level 100 98-107 MMOL/L Carbon Dioxide Level 25 21-32 MMOL/L Anion Gap 11 5-14 MMOL/L Blood Urea Nitrogen 20 H 7-18 MG/DL Creatinine 0.84 0.60-1.30 MG/DL Estimat Glomerular Filtration Rate 72 BUN/Creatinine Ratio 24 Glucose Level 101 70-105 MG/DL Calcium Level 10.8 H 8.5-10.1 MG/DL Corrected Calcium 10.6 H 8.5-10.1 MG/DL Magnesium Level 1.2 L 1.6-2.4 MG/DL Total Bilirubin 0.4 0.1-1.0 MG/DL Aspartate Amino Transf (AST/SGOT) 14 5-34 U/L Alanine Aminotransferase (ALT/SGPT) 12 0-55 U/L Alkaline Phosphatase 74 40-136 U/L Troponin I < 0.028 <0.028 NG/ML B-Type Natriuretic Peptide 815.5 H <100.0 PG/ML Total Protein 7.5 6.4-8.2 GM/DL Albumin 4.2 3.2-4.5 GM/DL Influenza Type A (RT-PCR) Not Detected Not Detecte Influenza Type B (RT-PCR) Not Detected Not Detecte SARS-CoV-2 RNA (RT-PCR) Not Detected Not Detecte My Orders Orders - MIREYA MCGUIRE PA Cbc With Automated Diff (07/09/22 13:10) Magnesium (07/09/22 13:10) Chest 1 View, Ap/Pa Only (07/09/22 13:10) Ekg Tracing (07/09/22 13:10) Comprehensive Metabolic Panel (07/09/22 13:10) Protime With Inr (07/09/22 13:10) Partial Thromboplastin Time (07/09/22 13:10) O2 (07/09/22 13:10) Monitor-Rhythm Ecg Trace Only (07/09/22 13:10) Ed Iv/Invasive Line Start (07/09/22 13:10) Bnp Cheo (07/09/22 13:10) Troponin I [place] (07/09/22 13:10) Methylprednisolone Sod Succ (Solu-Medrol (07/09/22 13:15) Albuterol/Ipra Inhalation Soln (Duoneb I (07/09/22 13:15) Svn Small Volume Nebulizer (07/09/22 13:10) Covid 19 Inhouse Test (07/09/22 13:10) Influenza A And B By Pcr (07/09/22 13:10) Magnesium Oxide Tablet (Mag Ox Tablet) (07/09/22 14:00) Ed Admission (Communication) (07/09/22 14:41) Medications Given in ED Current Medications Medications Dose Ordered Sig/Tamela Route Start Time Stop Time Status Last Admin Dose Admin Albuterol/ Ipratropium 3 ml ONCE ONCE INH 07/09/22 13:15 07/09/22 13:16 DC 07/09/22 13:23 3 ML Magnesium Oxide 400 mg ONCE ONCE PO 07/09/22 14:00 07/09/22 14:01 DC 07/09/22 14:09 400 MG Methylprednisolone Sodium Succinate 80 mg ONCE ONCE IV 07/09/22 13:15 07/09/22 13:16 DC 07/09/22 13:23 80 MG Vital Signs/I&O 07/09/22 07/09/22 07/09/22 13:04 13:14 13:15 Temp 36.0 Pulse 78 Resp 16 B/P (MAP) 177/78 (111) Pulse Ox 97 O2 Delivery Nasal Cannula Nasal Cannula Nasal Cannula O2 Flow Rate 2.00 2.00 3.50 FiO2 97 Capillary Refill : Less Than 3 Seconds Blood Pressure Mean: 111 ECG Comment Sinus rhythm, 75 bpm, QRS duration 94 MS, QTc 413 MS. Departure Communication (PCP) Reviewed previous ER visits, H&P, lab testing. History of respiratory failure secondary to COPD. Patient has a history of coronary artery disease. Patient was at home last night trying to sleep felt short of breath. She does wear 3- 1/2 L oxygen at night. Denies CPAP. Increase short of breath today. Was seen by home health with concerns for increased work of breathing. She appeared tachypneic. She used her MDI with some improvement. EMS was contacted. C oncerning for COPD exacerbation versus pneumonia. No fever, vomiting, diarrhea. Chronic cough without any bloody sputum production. On arrival mild increased work of breathing. Subtle wheezing with diminished breath sounds in her lower lung [place]. Patient was given Solu-Medrol, DuoNeb breathing treatment initially on arrival. She was currently wearing 2 L. Was found to have an oxygen in the lower 90s and was placed on 2 L. CBC, CMP, EKG and cardiac work- up secondary to short of breath. Denies of any specific chest pain or abdominal pain. She was not tachycardic or febrile. She was hypertensive currently on blood pressure medication. Denies anticoagulant. No recent travels or surgeries. No appreciation of lower leg swelling. CBC showed slight elevated white blood count of 13. Chemistry grossly unremarkable besides chronic elevated calcium 10.6, magnesium 1.2 with a history of hypomagnesia. Phosphorus was added, normal troponin, BNP 815. Last visit January BNP of just above 200. No history of CHF according to patient. She is not on diuretic. She received oral magnesium 400 mg magnesium oxide. She does not appear symptomatic requiring IV at this time. Chest x-ray did not show any evidence of pleural effusion, pulmonary congestion. Bronchitis versus bronchiolitis. More concern for acute on chronic COPD exacerbation. IV diuretics was held at this time. She was not given Rocephin as she does not appear to have pneumonia. COVID influenza was negative. Patient ambulated and became symptomatic. Attempted to remove her 2 L of nasal cannula dropped down to the upper 80s, lower 90s. Due to her hypoxia and mild increased work of breathing patient will be admitted observation for breathing treatments. patient was discussed with hospitalist Dr. Bustos who accepts patient Impression Primary Impression: Acute exacerbation of chronic obstructive pulmonary disease (COPD) Additional Impression: Hypomagnesemia Disposition: ADMITTED INPATIENT Condition: Stable Admissions Decision to Admit Reason: Admit from ER (General) Decision to Admit/Date: July 09, 2022 Time/Decision to Admit Time: 14:41 Departure-Patient Inst. Referrals: NO,LOCAL PHYSICIAN (PCP/Family) Primary Care Physician MIREYA MCGUIRE July 09, 2022 13:17
[2022-07-09 13:29] LABS: BASOPHILS # (AUTO) 0.1 10^3/uL (0.0-0.1); BASOPHILS % (AUTO) 0 % (0-10); EOSINOPHILS % (AUTO) 0 % (0-10); HEMATOCRIT 43 % (35-52); HEMOGLOBIN 13.7 g/dL (11.5-16.0); LYMPHOCYTES # (AUTO) 1.4 10^3/uL (1.0-4.0); LYMPHOCYTES % (AUTO) 10 % (12-44); MEAN CORPUSCULAR HEMOGLOBIN 29 pg (25-34); MEAN CORPUSCULAR HGB CONC 32 g/dL (32-36); MEAN CORPUSCULAR VOLUME 91 fL (80-99); MEAN PLATELET VOLUME 11.6 fL (9.0-12.2); MONOCYTES # (AUTO) 1.1 10^3/uL (0.0-1.0); MONOCYTES % (AUTO) 8 % (0-12); NEUTROPHILS # (AUTO) 11.2 10^3/uL (1.8-7.8); NEUTROPHILS % (AUTO) 81 % (42-75); PLATELET COUNT 202 10^3/uL (130-400); WHITE BLOOD COUNT 13.9 10^3/uL (4.3-11.0)
[2022-07-09 13:42] LABS: PROTHROMBIN TIME PATIENT 12.9 SEC (12.2-14.7)
[2022-07-09 13:43] LABS: ALBUMIN 4.2 GM/DL (3.2-4.5)
[2022-07-09 13:44] LABS: CALCIUM 10.8 MG/DL (8.5-10.1)
[2022-07-09 13:46] LABS: TOTAL PROTEIN 7.5 GM/DL (6.4-8.2)
[2022-07-09 13:47] LABS: BILIRUBIN,TOTAL 0.4 MG/DL (0.1-1.0)
[2022-07-09 13:49] LABS: CREATININE SERUM 0.84 MG/DL (0.60-1.30)
[2022-07-09 13:52] LABS: MAGNESIUM 1.2 MG/DL (1.6-2.4)
--- NOTE | 2022-07-09 13:58 | Diagnostic Imaging Report ---
EXAMINATION: Chest 1 view HISTORY: Chest pain. Shortness of breath. COMPARISON: 02/17/2022. FINDINGS: The lung volumes are normal. Interstitial prominence is seen in the right lung base. There is bronchial wall thickening. No focal consolidation is seen. No large pleural effusion or pneumothorax is seen. The cardiomediastinal silhouette is stable with post-CABG changes noted. There is calcified aortic atherosclerotic plaque. No acute osseous abnormality is seen. IMPRESSION: 1. Prominent interstitial markings and bronchial wall thickening in the right lung base, which may represent bronchitis/bronchiolitis. No focal consolidation or pleural effusion. Dictated by: Dictated on workstation # [id number]
[2022-07-09] MEDS ORDERED: MAGNESIUM OXIDE (MAG-OX)400 MG TAB PO ONE (14:00)
[2022-07-09 15:45] VITALS: BP 175/74
[2022-07-09] MEDS ORDERED: polyethylene glycoL POWDER 17 GM (MIRALAX) PACK PO PRN (15:45)
[2022-07-09] MEDS ORDERED: BISACODYL 10 MG SUPP (DULCOLAX) PR PRN (15:45)
[2022-07-09] MEDS ORDERED: MILK OF MAGNESIA 400 MG/5 ML 30 ML UDC PO PRN (15:45)
[2022-07-09] MEDS ORDERED: NS IV 500 ML 500 ML IV PRN (15:45)
[2022-07-09] MEDS ORDERED: ANTACID SUSP 30 ML UDC (MYLANTA) PO PRN (15:45)
[2022-07-09] MEDS ORDERED: ONDANSETRON 4 MG (ZOFRAN) ORAL DISSOLVE TAB PO PRN (15:45)
[2022-07-09] MEDS ORDERED: CALCIUM CARBONATE 500 MG (TUMS) TAB.CHEW PO PRN (15:45)
[2022-07-09] MEDS ORDERED: ACETAMINOPHEN 325 MG TABLET PO PRN (15:45)
[2022-07-09] MEDS ORDERED: LACTULOSE SYRUP 10GM/15ML (ENULOSE) 30ML UDC PO PRN (15:45)
[2022-07-09] MEDS ORDERED: ONDANSETRON 4 MG/2 ML (SDV) Z0FRAN IV PRN (15:45)
[2022-07-09] MEDS ORDERED: MELATONIN 3 MG TABLET PO PRN (15:45)
[2022-07-09 16:27] VITALS: BP 177/78
[2022-07-09] MEDS: MAGNESIUM 1 GM/100 ML IVPB 100 ML IV SCH ×3 (16:38→18:45)
[2022-07-09] MEDS: ENOXAPARIN 40 MG/0.4 ML (LOVENOX) SYR SC SCH (16:41)
[2022-07-09] MEDS ORDERED: RT-ALBUTEROL/IPRATROPIUM 3 ML (DUONEB) VIAL INH PRN (16:45)
[2022-07-09] MEDS: RT-ALBUTEROL/IPRATROPIUM 3 ML (DUONEB) VIAL INH SCH ×2 (18:36→22:15)
[2022-07-09 19:38] VITALS: BP 162/73
[2022-07-09] MEDS: DOCUSATE SODIUM 100 MG (COLACE) CAP PO SCH (19:56)
[2022-07-09] MEDS: SENNOSIDES 8.6 MG (SENOKOT) TAB PO SCH (19:57)
[2022-07-09 23:55] VITALS: BP 174/72
[2022-07-10] VITALS (7 sets, daily range): BP systolic 163–232; BP diastolic 62–107
[2022-07-10] MEDS: RT-ALBUTEROL/IPRATROPIUM 3 ML (DUONEB) VIAL INH SCH ×4 (02:21→14:50)
[2022-07-10 05:38] LABS: BASOPHILS % (AUTO) 0 % (0-10); EOSINOPHILS % (AUTO) 0 % (0-10); HEMATOCRIT 42 % (35-52); HEMOGLOBIN 13.4 g/dL (11.5-16.0); LYMPHOCYTES # (AUTO) 0.9 10^3/uL (1.0-4.0); LYMPHOCYTES % (AUTO) 6 % (12-44); MEAN CORPUSCULAR HEMOGLOBIN 29 pg (25-34); MEAN CORPUSCULAR HGB CONC 32 g/dL (32-36); MEAN CORPUSCULAR VOLUME 91 fL (80-99); MEAN PLATELET VOLUME 12.5 fL (9.0-12.2); MONOCYTES # (AUTO) 0.9 10^3/uL (0.0-1.0); MONOCYTES % (AUTO) 6 % (0-12); NEUTROPHILS # (AUTO) 13.6 10^3/uL (1.8-7.8); NEUTROPHILS % (AUTO) 87 % (42-75); PLATELET COUNT 184 10^3/uL (130-400); WHITE BLOOD COUNT 15.6 10^3/uL (4.3-11.0)
[2022-07-10 05:50] LABS: CALCIUM 9.8 MG/DL (8.5-10.1); CREATININE SERUM 0.85 MG/DL (0.60-1.30)
[2022-07-10] MEDS ORDERED: POTASSIUM CL 10MEQ/50ML IVPB 50 ML IV SCH (06:00)
[2022-07-10] MEDS ORDERED: MAGNESIUM 1 GM/100 ML IVPB 100 ML IV SCH (06:00)
[2022-07-10] MEDS ORDERED: KCL 20 MEQ TAB (K-DUR) PO SCH (06:00)
[2022-07-10 06:05] LABS: LYMPHOCYTES % (MANUAL) 6 %; MONOCYTES % (MANUAL) 7 %; NEUTROPHILS % (MANUAL) 87 %
[2022-07-10 06:06] LABS: RBC MORPH NORMAL
[2022-07-10] MEDS ORDERED: predniSONE 20 MG TAB PO SCH (07:00)
[2022-07-10] MEDS ORDERED: CLN.1T PO ×2 (08:15)
[2022-07-10] MEDS ORDERED: SIMV40TA25 PO (08:15)
[2022-07-10] MEDS ORDERED: CARV12.53 PO (08:15)
[2022-07-10] MEDS ORDERED: SPIR25TA5 PO ×2 (08:15→17:05)
[2022-07-10] MEDS ORDERED: FAMO20TA5 PO (08:16)
[2022-07-10] MEDS: cloNIDine 0.1 MG (CATAPRES) TAB PO SCH ×2 (08:32→09:58)
[2022-07-10] MEDS: DOCUSATE SODIUM 100 MG (COLACE) CAP PO SCH (08:32)
[2022-07-10] MEDS: SENNOSIDES 8.6 MG (SENOKOT) TAB PO SCH (08:32)
[2022-07-10] MEDS ORDERED: SPIRONOLACTONE 25 MG (ALDACTONE) TAB PO SCH (09:00)
[2022-07-10] MEDS ORDERED: lisINopril 40 MG (PRINIVIL) TABLET PO SCH (09:00)
[2022-07-10] MEDS: cloNIDine 0.1 MG (CATAPRES) TAB PO PRN ×2 (10:05→17:06)
[2022-07-10] MEDS ORDERED: hydrALAZINE (APESOLINE) 20 MG/ML VIAL IV PRN (12:00)
[2022-07-10] MEDS ORDERED: IOHEXOL 350 MG/ML 100 ML (OMNIPAQUE 350) VIAL IV ONE (12:15)
[2022-07-10] MEDS ORDERED: HOLD METFORMIN - RECEIVED CONTRAST 20 ML VIAL IV SCH (12:15)
[2022-07-10] MEDS ORDERED: NS 100 ML (IVPB) BAG IV ONE (12:15)
--- NOTE | 2022-07-10 12:37 | Short Stay Summary-Hospitalist ---
[facility] 07/10/22 1237: History of Present Illness HPI/Chief Complaint This is a 76y F with PMH COPD, CAD, HTN who presented to the ED on 07/09 with 1 day of worsening SOB. She wears 3.5L O2 qhs but was still unable to sleep due to difficulty breathing Wednesday night. Continued to have SOB 07/09 so came to ED. She tried her home rescue inhaler but it did not help. She has had episodes like this in the past but never this bad, in the past breathing treatments have helped. She has a chronic unproductive cough and is a daily smoker. CXR with right lung base bronchial wall thickening, bronchitis vs bronchiolitis, but no consolidation. BNP was 815 and troponin was negative. WBC was elevated at 13.9. Today she reports some improvement in her breathing since being in the hospital. She is no longer struggling to catch her breath. Denies CP, abdominal pain, fever. Source: patient Exam Limitations: no limitations Date Seen 07/10/22 Time Seen by a Provider: 09:00 Attending Physician No,Local Physician PCP Admitting Physician: Sarahi Plaza MD Attending Physician: Sarahi Plaza MD Referring Physician Date of Admission July 09, 2022 at 15:15 Home Medications & Allergies Home Medications Reviewed patient Home Medication Reconciliation performed by pharmacy medication reconciliations entry level automotive technician and/or nursing. Patients Allergies have been reviewed. Allergies Allergies Coded Allergies Sulfa (Sulfonamide Antibiotics) (Verified Allergy, Unknown, 07/09/22) amlodipine (Verified Allergy, Unknown, 07/09/22) Past Medical/Social/Family Hx Patient Social History Marrital Status: Tobacco Use?: Yes Tobacco type used: Cigarettes Smoking Status: Current Everyday Smoker (1 ppd) Use of E-Cig and/or Vaping dev: No Substance use?: No Alcohol Use?: No Pt stated abuse/neglect: No Immunizations Up To Date Influenza Vaccine Up-to-Date: No; Not Current First/Initial COVID19 Vaccinat: YES Second COVID19 Vaccination Levar: YES Tetanus Booster (TDap): More Than 5 Years TB Skin Test: Negative Date of Pneumonia Vaccine: Jan 29, 2014 Current Status status: No status: No Advance Directives: No Communicates: Verbally Primary Language: [place] Preferred Spoken Language: [place]al[place] Is interpretation needed?: No Implanted or Applied Medical D: None Past Medical History COPD, CAD, HTN, HLD, GERD, Anxiety/Depression PSH: CABG-2012, Hysterectomy Review of Systems Constitutional: No fever, No malaise Respiratory: cough (chronic); No short of breath Cardiovascular: No chest pain, No palpitations Gastrointestinal: No nausea, No vomiting Genitourinary: No dysuria, No hematuria Musculoskeletal: No joint swelling, No muscle pain Skin: No change in color, No pruritus Psychiatric/Neurological: Denies Headache, Denies Numbness All Other Systems Reviewed Negative Unless Noted: Yes (Negative excepted noted.) Physical Exam Physical Exam Vital Signs Vital Signs - First Documented 07/09/22 07/09/22 13:04 13:14 Temp 36.0 Pulse 78 Resp 16 B/P (MAP) 177/78 (111) Pulse Ox 97 O2 Delivery Nasal Cannula O2 Flow Rate 2.00 FiO2 97 Capillary Refill : Less Than 3 Seconds Height, Weight, BMI Height: 4'11.00" Weight: 151lbs. 14.8oz. [id number]; 24.24 BMI Method:Stated General Appearance: No Apparent Distress, WD/WN Eyes: Bilateral Eye Normal Inspection, Bilateral Eye PERRL, Bilateral Eye EOMI HEENT: PERRL/EOMI, Pharynx Normal, Moist Mucous Membranes Neck: Full Range of Motion, Normal Inspection Respiratory: Chest Non Tender, No Accessory Muscle Use, No Respiratory Distress, Crackles Cardiovascular: Regular Rate, Rhythm, No Murmur Gastrointestinal: Normal Bowel Sounds, Non Tender, Soft Extremity: Non Tender, No Pedal Edema Neurologic/Psychiatric: Alert, Normal Mood/Affect Skin: Normal Color, Warm/Dry Results Results/Procedures Labs Laboratory Tests 07/09/22 13:20 07/10/22 05:13 Patient resulted labs reviewed. Short Stay Diagnosis Discharge Diagnosis-Short Stay Admission Diagnosis Acute on chronic respiratory failure d/t COPD exacerbation Final Discharge Diagnosis Acute on chronic respiratory failure d/t COPD exacerbation Conclusion Plan Acute on chronic respiratory failure d/t COPD exacerbation Bronchial wall thickening on CXR Supplemental oxygen Continue Duoneb and prednisone Order nebulizer for home breathing treatments Continue O2 supplementation as needed, evaluate for continuous supplemental oxygen need CT ordered for further investigation of bronchial wall thickening and r/o PE HTN Restart home meds DVT Prophylaxis: Lovenox Discharge later today with home duoneb and steroids SARAHI PLAZA MD 07/10/22 1712: History of Present Illness Time Seen by a Provider: 12:00 Past Medical/Social/Family Hx Family Medical History Family Hx: non-contributory Results Results/Procedures Imaging: Reviewed Imaging Films, Reviewed Imaging Report Short Stay Diagnosis Conclusion Plan Admitted with acute on chronic respiratory failure due to COPD exacerbation. Her hypoxia improved but she was requiring 1 L at rest and 2 L with activity. She was given a steroid taper, duonebs, and a nebulizer. Her course was complicated by hypertension. Her Aldactone was increased. She should follow up with her PCP in about a week. Diagnosis/Problems Diagnosis/Problems (1) Acute exacerbation of chronic obstructive pulmonary disease (COPD) Status: Acute (2) Respiratory failure Status: Acute Qualifiers: Qualified Codes: J96.21 - Acute and chronic respiratory failure with hypoxia (3) Hypomagnesemia Status: Acute (4) HTN (hypertension) Status: Acute Qualifiers: Qualified Codes: I10 - Essential (primary) hypertension Supervisory-Addendum Brief Verification & Attestation Participated in pt care: history, MDM, physical Personally performed: exam, history, MDM, supervision of care Care discussed with: Medical Student Procedures: n/a Results interpretation: Verified all documentation A medical student performed and documented this service in my presence. I reviewed and verified all information documented by the medical student and made modifications to such information, when appropriate. I personally performed the physical exam and medical decision making. SHOAIB SHAH July 10, 2022 12:37 SARAHI PLAZA MD July 10, 2022 17:12
--- NOTE | 2022-07-10 13:32 | Diagnostic Imaging Report ---
INDICATION: Difficulty breathing. TECHNIQUE: All CT scans use one or more of the following dose optimizing techniques: Automated exposure control, MA and/or KvP adjustment based on patient size and exam type or iterative reconstruction. Comparison is made with prior CT chest from 04/29/2015. FINDINGS: Changes of median sternotomy are noted. Evaluation of the pulmonary arterial system is without evidence of thromboembolism. No definite filling defects are seen within central, lobar, or segmental branches. Pulmonary arteries are somewhat dilated centrally, perhaps owing to pulmonary arterial hypertension. The thoracic aorta is heavily calcified but nonaneurysmal. There is no dissection. No pericardial or pleural fluid is detected. Parenchymal evaluation demonstrates some minimal infiltrate or atelectasis in the right upper lobe. There is also some parenchymal consolidation in the subpleural location of the right lower lobe. No discrete mass is identified. Left lung appears to be fairly clear. Upper abdomen is unremarkable. IMPRESSION: 1. No evidence of pulmonary embolism or acute aortic disease. There is some dilatation of the central pulmonary arteries, suggestive of pulmonary arterial hypertension. 2. Right-sided pulmonary infiltrates or atelectasis. No other significant abnormality is detected. Dictated by: Dictated on workstation # [id number]
[2022-07-10] MEDS ORDERED: IPRA3AMP31 IH (13:49)
[2022-07-10] MEDS ORDERED: PRED10TA22 PO (13:49)
[2022-07-10] MEDS: ENOXAPARIN 40 MG/0.4 ML (LOVENOX) SYR SC SCH (16:31)
[2022-07-10] MEDS ORDERED: SPIRONOLACTONE 25 MG (ALDACTONE) TAB PO NR (17:30)
== END 2022-07-10 13:51 | disposition home or self-care (01) ==
LOC: EDUNIT# 13:02 → ER 13:03 → UNDOADMOB 15:15 → 4TH 15:15 → UNDODISOB 07-10 13:51
PROVIDERS: ADMIT Internal Medicine; ATTEND Internal Medicine
DX: J44.1 Chronic obstructive pulmonary disease with (acute) exacerbation (principal); I10 Essential (primary) hypertension; F17.210 Nicotine dependence, cigarettes, uncomplicated; Z79.899 Other long term (current) drug therapy
CPT/HCPCS: 36415; 71045; 71275; 80048; 80053; 83735; 83880; 84484; 85007; 85025; 85027; 85610; 85730; 87636; 93005; 93041; 94640; 94760; 94761; 96372; 96375; 96376; G0378

== ENCOUNTER 2022-07-12 18:44 | Inpatient (IN) | payer MEDICARE, OTHER ==
[~2022-07-12] VITALS: Ht 149 cm; Wt 61.5 kg
[~2022-07-12 18:44] MED LIST changes: +CARV12.53 PO; +FAMO20TA5 PO
[2022-07-12 19:11] LABS: BASOPHILS % (AUTO) 0 % (0-10)
[2022-07-12 19:13] LABS: EOSINOPHILS % (AUTO) 0 % (0-10); HEMATOCRIT 46 % (35-52); LYMPHOCYTES # (AUTO) 0.8 10^3/uL (1.0-4.0); LYMPHOCYTES % (AUTO) 7 % (12-44); MEAN CORPUSCULAR HEMOGLOBIN 29 pg (25-34); MEAN CORPUSCULAR HGB CONC 31 g/dL (32-36); MEAN CORPUSCULAR VOLUME 96 fL (80-99); MEAN PLATELET VOLUME 11.8 fL (9.0-12.2); MONOCYTES # (AUTO) 1.3 10^3/uL (0.0-1.0); MONOCYTES % (AUTO) 11 % (0-12); NEUTROPHILS # (AUTO) 10.1 10^3/uL (1.8-7.8); NEUTROPHILS % (AUTO) 82 % (42-75); PLATELET COUNT 225 10^3/uL (130-400); WHITE BLOOD COUNT 12.3 10^3/uL (4.3-11.0)
[2022-07-12 19:15] LABS: POTASSIUM 4.6 MMOL/L (3.6-5.0)
--- NOTE | 2022-07-12 19:15 | ED General ---
General Chief Complaint: Respiratory Problems Stated Complaint: SOA Nursing Triage Note: PT ARRIVED PER EMS, PT CO OF CHEST PAIN 10/08, SOA PROD COUGH.PT STATES STARTED ABOUT 1700 THIS EVENING. PT WEARS O2 @3L WHEN HOME. PT CONT TO BE DAILY SMOKER AND WEARS NITCOTINE PATCH. PT WAS RELEASED FROM HOSPITAL ON WEDNESDAY Source of Information: Patient Exam Limitations: No Limitations History of Present Illness Date Seen by Provider: July 12, 2022 Time Seen by Provider: 18:53 Initial Comments This 76-year-old woman presents to the emergency room via EMS with primary compl aint of shortness of breath and chest discomfort. She had been admitted to this facility July 09 and for COPD exacerbation. She reports the pain and shortness of breath have been present since her discharge on July 10. She has also had some nausea without vomiting. She woke with symptoms of shortness of air, nausea, and chest discomfort this morning. Pain is in the lower central chest and radiates down her arms. She used an inhaler and nebulizer treatment at home which was not helpful. She has nitroglycerin but has not used any today. Nitroglycerin generally makes her itch which she then treats with Benadryl. She had CABG in 2011 but has not had stress test or heart cath since then. Patient arrived via EMS and they reported her oxygen saturation for the fire department on the first response was 80%. Patient wears 3 L by nasal cannula at home. They placed her on a nonrebreather mask at 8 L. This resuscitated her oxygen saturation to 99%. She received a DuoNeb treatment by EMS. Oxygen saturation was then 100% on room air on arrival to the ER. During my assessment oxygen saturation was 96% on 3 L nasal cannula. Patient states that she has had persistent cough and has developed thick green sputum since her discharge from the hospital. She is spitting that sputum into an emesis sac. She is noted to be hypertensive. She has not taken her evening meds but is wearing a clonidine patch on the right arm. Patient reports her chest discomfort is worse with deep inspiration. Patient has continued to smoke despite her recent admission for COPD exacerbation. 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 He comes to the [facility] in [place], [place]. Her primary care provider is Cira Maldonado at the [facility] in [place]. Allergies and Home Medications Allergies Coded Allergies: Sulfa (Sulfonamide Antibiotics) (Verified Allergy, Unknown, 07/09/22) amlodipine (Verified Allergy, Unknown, 07/09/22) Patient Home Medication List Home Medication List Reviewed: Yes Albuterol Sulfate (Ventolin Hfa) 8.5 Gm Hfa.aer.ad, 2 PUFF IH Q4H PRN for SHORTNESS OF BREATH, (Reported) Entered as Reported by: STACIE VITAL on 04/29/15 1129 Aspirin (Aspirin EC) 81 Mg Tablet.dr, 81 MG PO DAILY, (Reported) Entered as Reported by: MAC RENAE on 02/13/22 1658 Carvedilol (Carvedilol) 12.5 Mg Tablet, 12.5 MG PO BID WITH MEALS, (Reported) Entered as Reported by: MAC RENAE on 07/10/22 0815 Cholecalciferol (Vitamin D3) (Vitamin D3) 25 Mcg (1000 Unit) Tablet, 25 MCG PO DAILY, (Reported) Entered as Reported by: MAC RENAE on 02/13/22 1657 Clonidine HCl (Clonidine HCl) 0.1 Mg Tablet, 0.1 MG PO BID, (Reported) Entered as Reported by: MAC RENAE on 07/10/22 0815 Clonidine HCl (Clonidine HCl) 0.1 Mg Tablet, 0.1 MG PO Q4H PRN for BP OVER 160, (Reported) Entered as Reported by: MAC RENAE on 07/10/22 0815 Diazepam (Diazepam) 5 Mg Tablet, 5 MG PO TID PRN for ANXIETY, (Reported) Entered as Reported by: MAC RENAE on 02/13/22 1657 Famotidine (Famotidine) 20 Mg Tablet, 20 MG PO BID PRN for HEARTBURN, (Reported) Entered as Reported by: MAC RENAE on 07/10/22 0816 Ipratropium/Albuterol Sulfate (Iprat-Albut 0.5-3(2.5) mg/3 ml) 0.5 Mg-3 Mg (2.5 Mg Base)/3 Ml Ampul.neb, 3 ML IH Q4H PRN for SHORTNESS OF BREATH Prescribed by: SARAHI PLAZA on 07/10/22 1349 Lisinopril (Lisinopril) 40 Mg Tablet, 40 MG PO DAILY, (Reported) Entered as Reported by: MAC RENAE on 02/13/22 165 Meloxicam (Meloxicam) 15 Mg Tablet, 15 MG PO DAILY, (Reported) Entered as Reported by: MAC RENAE on 02/13/22 165 Prednisone (Prednisone) 10 Mg Tab.ds.pk, 10 MG PO DAILY Prescribed by: SARAHI PLAZA on 07/10/22 1349 Simvastatin (Simvastatin) 40 Mg Tablet, 40 MG PO HS, (Reported) Entered as Reported by: MAC RENAE on 07/10/22 0815 Spironolactone (Spironolactone) 25 Mg Tablet, 25 MG PO DAILY Prescribed by: SARAHI PLAZA on 07/10/22 1705 Discontinued Medications Atorvastatin Calcium (Lipitor) 40 Mg Tablet, 40 MG PO DAILY Discontinued Reason: No Longer Taking Prescribed by: LORENA OSULLIVAN on 02/27/22520 Carvedilol (Carvedilol) 6.25 Mg Tablet, 12.5 MG PO BID Discontinued Reason: Duplicate Order Prescribed by: LORENA OSULLIVAN on 02/27/22520 Clonidine HCl (Clonidine HCl) 0.1 Mg Tablet, 0.1 MG PO Q4HR PRN for sbp>160 Discontinued Reason: Duplicate Order Prescribed by: LORENA OSULLIVAN on 02/27/22520 Clonidine HCl (Clonidine HCl) 0.1 Mg Tablet, 0.1 MG PO BID Discontinued Reason: Duplicate Order Prescribed by: LORENA OSULLIVAN on 02/27/22520 Prednisone (Prednisone) 10 Mg Tab.ds.pk, 10 MG PO DAILY Discontinued Reason: No Longer Taking Prescribed by: LORENA OSULLIVAN on 02/27/22520 Spironolactone (Spironolactone) 25 Mg Tablet, 6.25 MG PO DAILY Discontinued Reason: No Longer Taking Prescribed by: LORENA OSULLIVAN on 02/27/22520 Topiramate (Topamax) 25 Mg Tablet, 25 MG PO DAILY Discontinued Reason: No Longer Taking Prescribed by: LORENA OSULLIVAN on 02/27/22520 Review of Systems Review of Systems Constitutional: no symptoms reported EENTM: no symptoms reported Respiratory: see HPI Cardiovascular: see HPI Gastrointestinal: see HPI Genitourinary: no symptoms reported : No Musculoskeletal: see HPI Skin: no symptoms reported Psychiatric/Neurological: No Symptoms Reported Hematologic/Lymphatic: No Symptoms Reported Immunological/Allergic: no symptoms reported Past Wfdkejx-Orxdkt-Oulqho Hx Patient Social History Tobacco Use?: Yes Tobacco type used: Cigarettes Smoking Status: Current Everyday Smoker Substance use?: No Alcohol Use?: No Pt feels they are or have been: No Immunizations Up To Date Tetanus Booster (TDap): More than 5yrs First/Initial COVID19 Vaccinat: YES Second COVID19 Vaccination Levar: YES Third COVID19 Vaccination Date: YES Past Medical History Surgery/Hospitalization HX: CABG 2011, CAD,HTN, COPD, Bronchitis Surgeries: Yes CABG, Hysterectomy Respiratory: Yes (Uses nasal cannula oxygen at 3 L/min) COPD Currently Using CPAP: No Currently Using BIPAP: No Cardiac: Yes Coronary Artery Disease, Hypertension Neurological: No : No 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 Heart Disease, COPD non-contributory Physical Exam Vital Signs Vital Signs - First Documented Capillary Refill : Less Than 3 Seconds Height, Weight, BMI Height: 4'11.00" Weight: 151lbs. 14.8oz. [id number]; 27.00 BMI Method:Stated General Appearance: WD/WN, Mild Distress HEENT: PERRL/EOMI, Normal ENT Inspection Neck: Normal Inspection; No JVD Respiratory: No Accessory Muscle Use, No Respiratory Distress, Crackles (Bilateral bases), Decreased Breath Sounds, Rhonci (Left lung); No Wheezing Cardiovascular: Regular Rate, Rhythm, No Edema, No Murmur Extremity: Normal Inspection, No Pedal Edema Neurologic/Psychiatric: Alert, Oriented x3, No Motor/Sensory Deficits, Normal Mood/Affect Skin: Normal Color, Warm/Dry; No Rash Focused Exam Lactate Level 07/12/22 22:17: Lactic Acid Level 1.29 Lactic Acid Level Laboratory Tests Test 07/12/22 22:17 Lactic Acid Level 1.29 MMOL/L (0.50-2.00) Procedures/Interventions Patient Education: Explained Benefits, Explained Risks, Pt. Ack. Understanding Breath Sounds per Auscultation: Clear Airway Exam: Mouth opens >2 fingers, Neck Full Range of Motion Sedation Adminstration Time: 1311 Re-examination Time: 1400 Progress/Results/Core Measures Suspected Sepsis SIRS Temperature: Pulse: 100 Respiratory Rate: 24 Laboratory Tests 07/12/22 18:50: White Blood Count 12.3H Blood Pressure 200 /92 Mean: 128 07/12/22 22:17: Lactic Acid Level 1.29 Laboratory Tests 07/12/22 18:50: Creatinine 1.19, INR Comment 0.9, Platelet Count 225, Total Bilirubin 0.2 07/12/22 22:17: INR Comment 0.8 Results/Orders Lab Results Laboratory Tests Test 07/12/22 18:50 07/12/22 22:17 Range/Units White Blood Count 12.3 H 4.3-11.0 10^3/uL Red Blood Count 4.79 3.80-5.11 10^6/uL Hemoglobin 14.0 11.5-16.0 g/dL Hematocrit 46 35-52 % Mean Corpuscular Volume 96 80-99 fL Mean Corpuscular Hemoglobin 29 25-34 pg Mean Corpuscular Hemoglobin Concent 31 L 32-36 g/dL Red Cell Distribution Width 13.0 10.0-14.5 % Platelet Count 225 130-400 10^3/uL Mean Platelet Volume 11.8 9.0-12.2 fL Immature Granulocyte % (Auto) 0 % Neutrophils (%) (Auto) 82 H 42-75 % Lymphocytes (%) (Auto) 7 L 12-44 % Monocytes (%) (Auto) 11 0-12 % Eosinophils (%) (Auto) 0 0-10 % Basophils (%) (Auto) 0 0-10 % Neutrophils # (Auto) 10.1 H 1.8-7.8 10^3/uL Lymphocytes # (Auto) 0.8 L 1.0-4.0 10^3/uL Monocytes # (Auto) 1.3 H 0.0-1.0 10^3/uL Eosinophils # (Auto) 0.0 0.0-0.3 10^3/uL Basophils # (Auto) 0.0 0.0-0.1 10^3/uL Immature Granulocyte # (Auto) 0.0 0.0-0.1 10^3/uL Prothrombin Time 12.1 L 11.8 L 12.2-14.7 SEC INR Comment 0.9 0.8 0.8-1.4 Activated Partial Thromboplast Time 28 29 24-35 SEC Sodium Level 143 135-145 MMOL/L Potassium Level 4.6 3.6-5.0 MMOL/L Chloride Level 105 98-107 MMOL/L Carbon Dioxide Level 27 21-32 MMOL/L Anion Gap 11 5-14 MMOL/L Blood Urea Nitrogen 29 H 7-18 MG/DL Creatinine 1.19 0.60-1.30 MG/DL Estimat Glomerular Filtration Rate 48 BUN/Creatinine Ratio 24 Glucose Level 153 H 70-105 MG/DL Calcium Level 10.6 H 8.5-10.1 MG/DL Corrected Calcium 10.6 H 8.5-10.1 MG/DL Magnesium Level 1.6 1.6-2.4 MG/DL Total Bilirubin 0.2 0.1-1.0 MG/DL Aspartate Amino Transf (AST/SGOT) 29 5-34 U/L Alanine Aminotransferase (ALT/SGPT) 38 0-55 U/L Alkaline Phosphatase 82 40-136 U/L Myoglobin 27.4 10.0-92.0 NG/ML Troponin I < 0.028 <0.028 NG/ML C-Reactive Protein High Sensitivity 11.47 H 0.00-0.50 MG/DL B-Type Natriuretic Peptide 701.1 H <100.0 PG/ML Total Protein 7.4 6.4-8.2 GM/DL Albumin 4.0 3.2-4.5 GM/DL Lactic Acid Level 1.29 0.50-2.00 MMOL/L My Orders Orders - SEBASTIAN OSPINA MD Ekg Tracing (07/12/22 18:48) Cbc With Automated Diff (07/12/22 19:07) Magnesium (07/12/22 19:07) Chest 1 View, Ap/Pa Only (07/12/22 19:07) Comprehensive Metabolic Panel (07/12/22 19:07) Myoglobin Serum (07/12/22 19:07) Protime With Inr (07/12/22 19:07) Partial Thromboplastin Time (07/12/22 19:07) O2 (07/12/22 19:07) Monitor-Rhythm Ecg Trace Only (07/12/22 19:07) Lipid Panel (07/13/22 06:00) Ed Iv/Invasive Line Start (07/12/22 19:07) Troponin I Payne (07/12/22 19:07) Bnp Cheo (07/12/22 19:11) Hs C Reactive Protein (07/12/22 19:11) Clonidine Tablet (Catapres Tablet) (07/12/22 20:37) Carvedilol Tablet (Coreg Tablet) (07/12/22 20:37) Blood Culture (07/12/22 21:33) Sputum Culture (07/12/22:33) Urinalysis (07/12/22:) Urine Culture (07/12/22:) Protime With Inr (07/12/22:) Partial Thromboplastin Time (07/12/22:33) Vital Signs Adult Sepsis Patie Q15M (07/12/22 21:33) Remove Rings In Anticipation O (07/12/22 21:33) Lactic Acid Analyzer (07/12/22 21:33) Cefepime Injection (Maxipime Injection) (07/12/22 21:45) Methylprednisolone Sod Succ (Solu-Medrol (07/12/22 21:45) Medications Given in ED Current Medications Medications Dose Ordered Sig/Tamela Route Start Time Stop Time Status Last Admin Dose Admin Cefepime HCl 2000 mg/Sodium Chloride 50 ml @ 100 mls/hr ONCE ONCE IV 07/12/22 21:45 07/12/22 22:14 DC 07/12/22 22:11 100 MLS/HR Methylprednisolone Sodium Succinate 62.5 mg ONCE ONCE IVP 07/12/22 21:45 07/12/22 21:46 DC 07/12/22 22:11 62.5 MG Vital Signs/I&O 07/12/22 07/12/22 07/12/22 07/12/22 18:45 18:45 18:45 22:20 Temp 36.5 Pulse 100 81 Resp 24 30 B/P (MAP) 200/92 (128) 192/70 Pulse Ox 90 97 97 O2 Delivery Nasal Cannula Nasal Cannula Nasal Cannula Nasal Cannula O2 Flow Rate 3.00 3.00 3.00 3.00 Capillary Refill : Less Than 3 Seconds Blood Pressure Mean: 128 Progress Note : Progress Note Wheezing and shortness of breath seem to improve with DuoNeb treatment provided on scene. Patient is stable on 3 L nasal cannula at this time. EKG and troponin were reviewed and interpreted by me. There were no ischemic changes and troponin was negative. Patient had escalating hypertension. She was given clonidine 0.1 mg and Coreg 12.5 mg which are her usual home doses. She had some slight improvement in blood pressure after these treatments. She reports it is not uncommon for her to have extremely high blood pressures such as these. CBC was reviewed. She had mild leukocytosis which is likely secondary to recent steroid use. Chemistry was remarkable for a CRP greater than 11. This suggest possible developing infection. Electrolytes were unremarkable. Renal function was normal as indicated by her normal creatinine and BUN. BNP was 700 which was a slight decrease from prior. Chest x-ray report was reviewed. There were no significant adverse changes from prior, but there were persistent basilar infiltrates and/or atelectasis. Chart from prior admission was reviewed including imaging studies, labs, and documentation. I am concerned about patient's rebounding symptoms and the progressive development of very thick purulent appearing green sputum. Blood cultures and lactic acid were drawn. Lactic acid was normal. She was then treated with cefepime out of concern for possible developing pneumonia. I discussed the case with Dr. Plaza who requested admission to the ICU due to her uncontrolled hypertension. As needed clonidine was placed on the bridging orders along with a Cardene drip if necessary. Report was given to eICU. I discussed CODE STATUS with the patient. She requests cardiac resuscitation with medications, defibrillation, and CPR but does not want to be intubated under any circumstances. ECG Initial ECG Impression Date: July 12, 2022 Initial ECG Impression Time: 18:53 Initial ECG Rate: 97 Initial ECG Rhythm: Normal Sinus Initial ECG Intervals: Normal Initial ECG Impression: Normal Comment Normal sinus rhythm with no ST elevation or depression. No abnormal intervals or axis deviation. Diagnostic Imaging Diagonstic Imaging: Xray Plain Films/CT/US/NM/MRI: chest Comments NAME: ADRIANA FELDER MED REC#: [id number] PT STATUS: REG ER : 1945 PHYSICIAN: SEBASTIAN OSPINA MD ADMIT DATE: 07/12/22/ER Signed Date of Exam:07/12/22 CHEST 1 VIEW, AP/PA ONLY EXAMINATION: Chest 1 view. HISTORY: Chest pain. Shortness of breath. COMPARISON: 07/09/2022. FINDINGS: The lung volumes are normal. Stable opacities in the lung bases. No focal consolidation is seen. No large pleural effusion or pneumothorax is seen. The cardiomediastinal silhouette is stable with post-CABG changes. There is calcified aortic atherosclerotic plaque. No acute osseous abnormality is seen. IMPRESSION: Stable opacities in the lung bases, which may represent atelectasis or infection. No focal consolidation or pleural effusion. Dictated by: Dictated on workstation # [id number] Dict: 07/12/221920 Trans: 07/12/221932 [facility] [id number] Interpreted by: ORI HERNANDEZ DO Electronically signed by: ORI HERNANDEZ DO 07/12/221932 Departure Communication (Admissions) Time/Spoke to Admitting Phy: 21:30 Dr. Plaza Time/Spoke to Consulting Phy: 22:10 eICU report Impression Primary Impression: COPD exacerbation Additional Impressions: Atypical chest pain Labile hypertension Disposition: ADMITTED INPATIENT Condition: Stable Admissions Decision to Admit Reason: Admit from ER (General) Decision to Admit/Date: July 12, 2022 Time/Decision to Admit Time: 21:30 Departure-Patient Inst. Referrals: NO,LOCAL PHYSICIAN (PCP/Family) Primary Care Physician SEBASTIAN OSPINA MD July 12, 2022 19:15
[2022-07-12 19:16] LABS: CALCIUM 10.6 MG/DL (8.5-10.1)
[2022-07-12 19:18] LABS: TOTAL PROTEIN 7.4 GM/DL (6.4-8.2)
[2022-07-12 19:19] LABS: BILIRUBIN,TOTAL 0.2 MG/DL (0.1-1.0)
[2022-07-12 19:21] LABS: CREATININE SERUM 1.19 MG/DL (0.60-1.30)
[2022-07-12 19:24] LABS: MAGNESIUM 1.6 MG/DL (1.6-2.4)
--- NOTE | 2022-07-12 19:24 | Diagnostic Imaging Report ---
EXAMINATION: Chest 1 view. HISTORY: Chest pain. Shortness of breath. COMPARISON: 07/09/2022. FINDINGS: The lung volumes are normal. Stable opacities in the lung bases. No focal consolidation is seen. No large pleural effusion or pneumothorax is seen. The cardiomediastinal silhouette is stable with post-CABG changes. There is calcified aortic atherosclerotic plaque. No acute osseous abnormality is seen. IMPRESSION: Stable opacities in the lung bases, which may represent atelectasis or infection. No focal consolidation or pleural effusion. Dictated by: Dictated on workstation # [id number]
[2022-07-12 19:36] LABS: INR 0.9 (0.8-1.4); PROTHROMBIN TIME PATIENT 12.1 SEC (12.2-14.7)
[2022-07-12] MEDS ORDERED: cloNIDine 0.1 MG (CATAPRES) TAB PO STA (20:37)
[2022-07-12] MEDS ORDERED: methylPREDNISolone 125 MG (Solu-MEDROL) VIAL IVP ONE (21:45)
[2022-07-12] MEDS ORDERED: CEFEPIME INJECTION 2,000 MG in NS (IVPB) 50 ML IV ONE (21:45)
[2022-07-12] MEDS ORDERED: NS IV 500 ML 500 ML IV PRN (22:45)
[2022-07-12 22:47] LABS: INR 0.8 (0.8-1.4); PROTHROMBIN TIME PATIENT 11.8 SEC (12.2-14.7)
[2022-07-12] MEDS ORDERED: CATHETER FLUSH 10 ML SYR IVP PRN (23:00)
[2022-07-12] MEDS ORDERED: ONDANSETRON 4 MG/2 ML (SDV) Z0FRAN IV PRN (23:15)
[2022-07-12] MEDS ORDERED: niCARdipine IV 50 MG in NS (IVPB) 230 ML IV SCH (23:15)
[2022-07-12] MEDS ORDERED: cloNIDine 0.1 MG (CATAPRES) TAB PO PRN (23:15)
[2022-07-12] MEDS ORDERED: RT-ALBUTEROL/IPRATROPIUM 3 ML (DUONEB) VIAL ONE (23:30)
[2022-07-12] MEDS ORDERED: RT-ALBUTEROL/IPRATROPIUM 3 ML (DUONEB) VIAL INH PRN (23:30)
[2022-07-13] MEDS ORDERED: RT-ALBUTEROL/IPRATROPIUM 3 ML (DUONEB) VIAL INH PRN
[2022-07-13] MEDS: MELATONIN 10 MG TABLET PO SCH ×2 (00:12→21:12)
[2022-07-13] MEDS ORDERED: NITRO DRIP 25000 MCG/D5W 250 ML IV ONE (00:30)
[2022-07-13] MEDS: RT-ALBUTEROL/IPRATROPIUM 3 ML (DUONEB) VIAL INH SCH ×6 (02:23→21:41)
[2022-07-13] MEDS: methylPREDNISolone 40 MG/ML (Solu-MEDROL) VIAL IV SCH ×2 (02:26→08:38)
[2022-07-13] MEDS: NITROGLYCERIN DRIP 25 MG/250 ML D5W (PRE-MIX) IV SCH ×2 (04:43→12:57)
[2022-07-13] MEDS: POTASSIUM CL 10MEQ/50ML IVPB 50 ML IV SCH (04:45)
[2022-07-13] MEDS: CATHETER FLUSH 10 ML SYR IVP SCH ×3 (04:45→22:16)
[2022-07-13] MEDS: MAGNESIUM 1 GM/100 ML IVPB 100 ML IV SCH ×4 (04:46→08:40)
[2022-07-13] MEDS: KCL 20 MEQ TAB (K-DUR) PO SCH (04:46)
[2022-07-13] MEDS: CEFEPIME 1,000 MG/NS 50 ML IVPB IV SCH ×6 (05:40→21:12)
[2022-07-13 05:49] LABS: BASOPHILS # (AUTO) 0.1 10^3/uL (0.0-0.1); BASOPHILS % (AUTO) 0 % (0-10); EOSINOPHILS # (AUTO) 0.2 10^3/uL (0.0-0.3); EOSINOPHILS % (AUTO) 2 % (0-10); HEMATOCRIT 41 % (35-52); HEMOGLOBIN 12.4 g/dL (11.5-16.0); LYMPHOCYTES # (AUTO) 0.6 10^3/uL (1.0-4.0); LYMPHOCYTES % (AUTO) 4 % (12-44); MEAN CORPUSCULAR HEMOGLOBIN 30 pg (25-34); MEAN CORPUSCULAR HGB CONC 31 g/dL (32-36); MEAN CORPUSCULAR VOLUME 96 fL (80-99); MEAN PLATELET VOLUME 11.5 fL (9.0-12.2); MONOCYTES # (AUTO) 0.3 10^3/uL (0.0-1.0); MONOCYTES % (AUTO) 2 % (0-12); NEUTROPHILS # (AUTO) 12.3 10^3/uL (1.8-7.8); NEUTROPHILS % (AUTO) 91 % (42-75); PLATELET COUNT 204 10^3/uL (130-400); WHITE BLOOD COUNT 13.5 10^3/uL (4.3-11.0)
[2022-07-13 06:03] LABS: ALBUMIN 3.7 GM/DL (3.2-4.5); BILIRUBIN,TOTAL 0.2 MG/DL (0.1-1.0); CALCIUM 10.4 MG/DL (8.5-10.1); CREATININE SERUM 0.88 MG/DL (0.60-1.30); MAGNESIUM 1.6 MG/DL (1.6-2.4); PHOSPHORUS 3.2 MG/DL (2.3-4.7); POTASSIUM 5.1 MMOL/L (3.6-5.0); TOTAL PROTEIN 6.7 GM/DL (6.4-8.2)
[2022-07-13] MEDS ORDERED: MAGNESIUM 1 GM/100 ML IVPB 400 ML IV ONE (06:17)
--- NOTE | 2022-07-13 08:01 | Diagnostic Imaging Report ---
INDICATION: Hypertension. Comparison is made with prior exam of 07/12/2022 FINDINGS: The heart size is normal. There has been a previous median sternotomy. There is some venous congestion. There is no pleural effusion or pneumothorax. The mediastinum is unremarkable. IMPRESSION: Mild central pulmonary venous congestion. Dictated by: Dictated on workstation # [id number]
[2022-07-13] MEDS: PANTOPRAZOLE 40 MG (PROTONIX) TAB PO SCH (08:38)
[2022-07-13] MEDS: ENOXAPARIN 40 MG/0.4 ML (LOVENOX) SYR SC SCH (08:39)
--- NOTE | 2022-07-13 09:20 | History & Physical-Hospitalist ---
History of Present Illness HPI/Chief Complaint Pt is a 76yoCF with a PMH of COPD, HTN, and CAD s/p CABG who presented to the ER due to chest pain. She states she was admitted to the hospital on and didn't really feel any better when she discharged but wasn't any worse either. She states she developed michelle pain as well. She thinks it may have been present while she was here but got a lot worse yesterday. It was in the center of her chest and radiated down both of her arms. She was nauseated with this as well. She states when this happened and she needed a CABG she was also vomiting but otherwise this felt similar. She did not take any nitro but tried her breathing treatments without improvement. EMS was summoned and she was found be satting 80%. This improved to 80s with a breathing treatment. There was concern for pna on imaging as well and given green sputum production she was started on IV abx. This morning s Source: patient Date Seen 07/13/22 Time Seen by a Provider: 08:00 Attending Physician No,Local Physician PCP Admitting Physician: Carlita Bustos MD Attending Physician: Carlita Bustos MD Referring Physician Date of Admission July 12, 2022 at 22:34 Home Medications & Allergies Home Medications Reviewed patient Home Medication Reconciliation performed by pharmacy medication reconciliations accessibility lift technician and/or nursing. Patients Allergies have been reviewed. Allergies Allergies Coded Allergies Sulfa (Sulfonamide Antibiotics) (Verified Allergy, Unknown, 07/09/22) amlodipine (Verified Allergy, Unknown, 07/09/22) Past Yunglkh-Kihkem-Ktjtep Hx Patient Social History Tobacco Use?: Yes Tobacco type used: Cigarettes Smoking Status: Current Everyday Smoker Substance use?: No Alcohol Use?: No Pt feels they are or have been: No Immunizations Up To Date Date of Influenza Vaccine: Feb 05, 2015 First/Initial COVID19 Vaccinat: YES Second COVID19 Vaccination Levar: YES Tetanus Booster (TDap): More Than 5 Years Date of Pneumonia Vaccine: Jan 29, 2014 Current Status status: No status: No Advance Directives: No Communicates: Verbally Primary Language: Peruvian Preferred Spoken Language: Peruvian Is interpretation needed?: No Sensory deficits: Vision impairment Implanted or Applied Medical D: None Past Medical History Surgeries: CABG, Hysterectomy COPD Currently Using CPAP: No Currently Using BIPAP: No Coronary Artery Disease, Hypertension 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 Heart Disease, COPD non-contributory Review of Systems Constitutional: see HPI Physical Exam Physical Exam Vital Signs Vital Signs - First Documented 07/12/22 23:14 FiO2 32 Capillary Refill : Less Than 3 Seconds Height, Weight, BMI Height: 4'11.00" Weight: 151lbs. 14.8oz. 68.824431hs; 27.02 BMI Method:Stated General Appearance: No Apparent Distress, Chronically ill Respiratory: Lungs Clear, No Respiratory Distress; No Wheezing; Other (on 3lpm) Cardiovascular: Regular Rate, Rhythm, No Murmur Gastrointestinal: Normal Bowel Sounds, Non Tender, Soft Neurologic/Psychiatric: Alert, Oriented x3, Normal Mood/Affect Results Results/Procedures Labs Laboratory Tests 07/12/22 18:50 07/13/22 05:28 07/14/22 04:30 Patient resulted labs reviewed. Imaging: Reviewed Imaging Report Imaging [facility] [place] NAME: ADRIANA [facility]DER [facility] REC#: [id number] PT STATUS: REG ER : 1945 PHYSICIAN: SEBASTIAN OSPINA MD ADMIT DATE: 07/12/22/ER Signed Date of Exam:07/12/22 CHEST 1 VIEW, AP/PA ONLY EXAMINATION: Chest 1 view. HISTORY: Chest pain. Shortness of breath. COMPARISON: 07/09/2022. FINDINGS: The lung volumes are normal. Stable opacities in the lung bases. No focal consolidation is seen. No large pleural effusion or pneumothorax is seen. The cardiomediastinal silhouette is stable with post-CABG changes. There is calcified aortic atherosclerotic plaque. No acute osseous abnormality is seen. IMPRESSION: Stable opacities in the lung bases, which may represent atelectasis or infection. No focal consolidation or pleural effusion. Dictated by: Dictated on workstation # [id number] Dict: 07/12/221920 Trans: 07/12/221932 [facility] [id number] Interpreted by: ORI HERNANDEZ DO Electronically signed by: ORI HERNANDEZ DO 07/12/221932 Assessment/Plan Admission Diagnosis COPD Exacerbation Admission Status: Inpatient Order (span 2 midnights) Reason for Inpatient Admission: see below Assessment and Plan Chronic respiratory failure COPD exacerbation and ?pneumonia Continue IV abx Sputum culture ordered MAT protocol Continue Solumedrol Chest pain Hypertensive emergency CAD s/p CABG Currently on nitro gtt Chest pain resolved Troponin negative on arrival, second pending form this AM Cardiology consulted, appreciate recs Continue home meds as appropriate Tobacco abuse Encouraged cessation Diagnosis/Problems Diagnosis/Problems (1) Acute exacerbation of chronic obstructive pulmonary disease (COPD) Status: Acute (2) Respiratory failure Status: Acute (3) Atypical chest pain Status: Acute (4) HTN (hypertension) Status: Acute MALIKA SCHUSTER MD July 13, 2022 09:20
--- NOTE | 2022-07-13 09:33 | Tele-ICU Consult ---
History of Present Illness History of Present Illness Date Seen by Provider: July 13, 2022 Time Seen by Provider: 09:31 Date of Admission History of Present Illness (Tele-ICU Physician , consultation as per request of PCP Service provided via interactive audio and video telecommunications E-CARE system to a patient admitted to ICU bed in [facility]. Available chart/ vitals / labs / Images reviewed H&P is from ER notes Patient's information available about PMH, Shx, Fhx allergy reviewed inEMR. ROS as per chart and RN report Now in ICU, hemodynamically stable Video assessment done using teleICU camera, rest of exam as per RN Discussed with RN. Hospital course: (07/12) 76/F- HYPOXIC, COPD EXACERBATION, Pna, d/c hosp on wednesday- for same. A/P Chest pain - on NTF gtt - ECHO pending - cards consulted - AC as per cards 0- not on any now - ? pruritus withNTG reported nby patein at home 0 here on high dose od steroids - no reaction AECOPD - IV steroids and mnebs started HTN - on ntg gtt , PO meds to resume as per cards PNA, in right - not worse comparint to few days earlier - in cefepime for PNA seen on CT 07/10/24 - sputum cx pending Hyperkalemia - mild , not any supplement - folow Lines : peripg , (Central Line Necessity Reviewed) Taylor: void OG: Nutrition: npo Analgesia: Anxiety/ delirium VTE Prophylaxis: proph diana Stress Ulcer Prophylaxis: Glycemic Control: Plans in collaboration with bedside consultants and IM MDs. Discussed with RN to reach out if any questions or concerns A total of 25 minutes of critical care time was devoted to this patient today, required to treat and/or prevent further deterioration of critical care condition ( as above ) I am remotely monitoring this patient from another state. I am unable to do the bedside exam, and history/physical and pertinent information is taken from other notes in the computer and bedside staff. . Allergies and Home Medications Allergies Coded Allergies: Sulfa (Sulfonamide Antibiotics) (Verified Allergy, Unknown, 07/09/22) amlodipine (Verified Allergy, Unknown, 07/09/22) Home Medications Albuterol Sulfate 8.5 Gm Hfa.aer.ad, 2 PUFF IH Q4H PRN for SHORTNESS OF BREATH, (Reported) Aspirin 81 Mg Tablet.dr, 81 MG PO DAILY, (Reported) Carvedilol 12.5 Mg Tablet, 12.5 MG PO BID WITH MEALS, (Reported) Cholecalciferol (Vitamin D3) 25 Mcg (1000 Unit) Tablet, 25 MCG PO DAILY, (Reported) Clonidine HCl 0.1 Mg Tablet, 0.1 MG PO BID, (Reported) Clonidine HCl 0.1 Mg Tablet, 0.1 MG PO Q4H PRN for BP OVER 160, (Reported) Diazepam 5 Mg Tablet, 5 MG PO TID PRN for ANXIETY, (Reported) Famotidine 20 Mg Tablet, 20 MG PO BID PRN for HEARTBURN, (Reported) Ipratropium/Albuterol Sulfate 0.5 Mg-3 Mg (2.5 Mg Base)/3 Ml Ampul.neb, 3 ML IH Q4H PRN for SHORTNESS OF BREATH Prescribed by: SARAHI PLAZA on 07/10/22 1349 Lisinopril 40 Mg Tablet, 40 MG PO DAILY, (Reported) Meloxicam 15 Mg Tablet, 15 MG PO DAILY, (Reported) Prednisone 10 Mg Tab.ds.pk, 10 MG PO DAILY Take 6 tabs(60mg)daily,decrease by 1 tab(10MG)daily. Prescribed by: SARAHI PLAZA on 07/10/22 1349 Simvastatin 40 Mg Tablet, 40 MG PO HS, (Reported) Spironolactone 25 Mg Tablet, 25 MG PO DAILY Prescribed by: SARAHI PLAZA on 07/10/22 1705 Past Medical/Social/Family Hx Patient Social History Tobacco Use?: Yes Tobacco type used: Cigarettes Smoking Status: Current Everyday Smoker Substance use?: No Alcohol Use?: No Pt stated abuse/neglect: No Immunizations Up To Date First/Initial COVID19 Vaccinat: YES Second COVID19 Vaccination Levar: YES Tetanus Booster (TDap): More Than 5 Years TB Skin Test: Negative Date of Pneumonia Vaccine: Jan 29, 2014 Current Status status: No status: No Advance Directives: No Communicates: Verbally Primary Language: Bulgarian Preferred Spoken Language: Bulgarian Is interpretation needed?: No Sensory deficits: Vision impairment Implanted or Applied Medical D: None Past Medical History COPD, CAD, HTN, HLD, GERD, Anxiety/Depression PSH: CABG-2012, Hysterectomy Family Medical History Family Hx: non-contributory Review of Systems Constitutional: see HPI Focused Exam Lactate Level 07/12/22 22:17: Lactic Acid Level 1.29 Height, Weight, BMI Height: 4'11.00" Weight: 151lbs. 14.8oz. 68.471944qw; 27.02 BMI Method:Stated Exam Exam Patient acknowledged, consented, and participated in this virtual visit which was conducted using real time audio/video Vital Signs Date Time Temp Pulse Resp B/P (MAP) Pulse Ox O2 Delivery O2 Flow Rate FiO2 07/13/22 08:15 36.4 07/13/22 07:16 74 07/13/22 06:45 100 Nasal Cannula 3.00 07/13/22 06:25 72 205/87 07/13/22 06:00 70 16 185/77 (113) 99 Nasal Cannula 3.00 07/13/22 05:00 73 20 179/80 (113) 98 Nasal Cannula 3.00 07/13/22 04:00 73 23 181/71 (107) 97 Nasal Cannula 3.00 07/13/22 04:00 97 Nasal Cannula 3.00 07/13/22 03:00 82 22 194/78 (116) 99 Nasal Cannula 3.00 07/13/22 02:23 97 Nasal Cannula 3.00 07/13/22 02:05 76 215/90 07/13/22 02:00 82 22 215/90 (131) 99 Nasal Cannula 3.00 07/13/22 01:30 36.6 07/13/22 01:00 82 07/13/22 01:00 82 23 224/111 (148) 98 Nasal Cannula 3.00 07/13/22 00:51 82 192/70 07/13/22 00:30 79 28 217/97 (137) 98 Nasal Cannula 3.00 07/13/22 00:00 82 28 214/94 (134) 97 Nasal Cannula 3.00 07/12/22 23:45 80 23 223/107 (145) 100 Nasal Cannula 3.00 07/12/22 23:35 98 Nasal Cannula 3.00 07/12/22 23:30 81 28 208/96 (133) 100 Nasal Cannula 3.00 07/12/22 23:15 80 28 224/102 (142) 100 Nasal Cannula 3.00 07/12/22 23:14 97 32 07/12/22 23:00 86 23 221/100 (140) 98 Nasal Cannula 3.00 07/12/22 23:00 98 Nasal Cannula 3.00 07/12/22 22:55 36.3 84 Nasal Cannula 3.00 07/12/22 22:35 82 07/12/22 22:20 81 30 192/70 97 Nasal Cannula 3.00 07/12/22 18:45 97 Nasal Cannula 3.00 07/12/22 18:45 36.5 100 24 200/92 (128) 90 Nasal Cannula 3.00 07/12/22 18:45 Nasal Cannula 3.00 I & O0 07/13/22 07:00 Intake Total 600 ml Output Total 450 ml Balance 150 ml Height & Weight Height: 4'11.00" Weight: 151lbs. 14.8oz. 68.762068is; 27.02 BMI Method:Stated General Appearance: No Apparent Distress, Chronically ill HEENT: PERRL/EOMI, Normal ENT Inspection Neck: Normal Inspection; No JVD Respiratory: Lungs Clear, No Respiratory Distress; No Wheezing; Other (on 3lpm) Cardiovascular: Regular Rate, Rhythm, No Murmur Capillary Refill: Less Than 3 Seconds Extremity: Normal Inspection, No Pedal Edema Neurologic/Psychiatric: Alert, Oriented x3, Normal Mood/Affect Skin: Normal Color, Warm/Dry; No Rash Results Lab Laboratory Tests 07/12/22 18:50 07/13/22 05:28 Assessment/Plan Assessment/Plan 1 TASIA PADILLA MD July 13, 2022 09:33
[2022-07-13] MEDS ORDERED: CLON1PAT33 TD (10:05)
[2022-07-13] MEDS ORDERED: VALS80TA31 PO (10:05)
[2022-07-13] MEDS ORDERED: CLOPIDOGREL 300 MG (PLAVIX) TABLET PO NR (12:00)
--- NOTE | 2022-07-13 12:45 | Consultation-Cardiology ---
HPI-Cardiology Cardiology Consultation: Date of Consultation 07/13/22 Date of Admission Attending Physician No,Local Physician Admitting Physician Admitting Physician: Sarahi Plaza MD Attending Physician: Bethany Tuttle MD Consulting Physician Dean VIRAMONTES MD HPI: Time Seen by a Provider: 12:40 Chief Complaint: Chest pain This is a 76-year-old lady with a history of coronary artery disease, CABG, COPD, active smoking. She presents a couple of days ago with shortness of breath and chest discomfort. She presents back again because of persistent chest pain and was found to be hypoxic. She continues to smoke. She follows with cardiology in [place]. When I saw the patient she was not having any fur ther chest pain. She was significantly hypertensive on admission. Review of Systems-Cardiology Review of Systems Constitutional: No malaise, No tiredness Eyes: As described under HPI Ears/Nose/Throat: As described under HPI Respiratory: shortness of breath Cardiovascular: chest pain Gastrointestinal: no symptoms reported Genitourinary: no symptoms reported : No Musculoskeletal: no symptoms reported Skin: no symptoms reported Psychiatric/Neurological: no symptoms reported Hematologic: no symptoms reported [id number] Hx Patient Social History Smoking Status: Current Everyday Smoker Have you traveled recently?: No Alcohol Use?: No Pt feels they are or have been: No Tobacco type used: Cigarettes Immunizations Up To Date Tetanus Booster (TDap): More than 5yrs Date of Pneumonia Vaccine: Jan 29, 2014 Date of Influenza Vaccine: Feb 05, 2015 Past Medical History PMH As described under Assessment. Family Medical History Family History: Patient reports no known family medical history. Allergies and Home Medications Allergies Coded Allergies: Sulfa (Sulfonamide Antibiotics) (Verified Allergy, Unknown, 07/09/22) amlodipine (Verified Allergy, Unknown, 07/09/22) Patient Home Medication List Home Medication List Reviewed: Yes Albuterol Sulfate (Ventolin Hfa) 8.5 Gm Hfa.aer.ad, 2 PUFF IH Q4H PRN for SHORTNESS OF BREATH, (Reported) Entered as Reported by: STACIE VITAL on 04/29/15 1129 Last Action: Reviewed Aspirin (Aspirin EC) 81 Mg Tablet.dr, 81 MG PO DAILY, (Reported) Entered as Reported by: MAC RENAE on 02/13/22 3873 Last Action: Reviewed Carvedilol (Carvedilol) 12.5 Mg Tablet, 12.5 MG PO BID WITH MEALS, (Reported) Entered as Reported by: MAC RENAE on 07/10/22814 Last Action: Continued Cholecalciferol (Vitamin D3) (Vitamin D3) 25 Mcg (1000 Unit) Tablet, 25 MCG PO DAILY, (Reported) Entered as Reported by: MAC RENAE on 02/13/221656 Last Action: Reviewed Clonidine (Clonidine TTS 1 Patch) 0.1 Mg/24 Hour Patch.tdwk, 1 PATCH TD WEEK, (Reported) Entered as Reported by: MAC RENAE on 07/13/22 1005 Last Action: Reviewed Clonidine HCl (Clonidine HCl) 0.1 Mg Tablet, 0.1 MG PO Q4H PRN for BP OVER 160, (Reported) Entered as Reported by: MAC RENAE on 07/10/22814 Last Action: Continued Diazepam (Diazepam) 5 Mg Tablet, 5 MG PO TID PRN for ANXIETY, (Reported) Entered as Reported by: MAC RENAE on 02/13/221656 Last Action: Reviewed Famotidine (Famotidine) 20 Mg Tablet, 20 MG PO BID PRN for HEARTBURN, (Reported) Entered as Reported by: MAC RENAE on 07/10/22815 Last Action: Reviewed Ipratropium/Albuterol Sulfate (Iprat-Albut 0.5-3(2.5) mg/3 ml) 0.5 Mg-3 Mg (2.5 Mg Base)/3 Ml Ampul.neb, 3 ML IH Q4H PRN for SHORTNESS OF BREATH Prescribed by: SARAHI PLAZA on 07/10/221348 Last Action: Reviewed Lisinopril (Lisinopril) 40 Mg Tablet, 40 MG PO DAILY, (Reported) Entered as Reported by: MAC RENAE on 02/13/221656 Last Action: Continued Meloxicam (Meloxicam) 15 Mg Tablet, 15 MG PO DAILY, (Reported) Entered as Reported by: MAC RENAE on 02/13/221656 Last Action: Reviewed Prednisone (Prednisone) 10 Mg Tab.ds.pk, 10 MG PO DAILY Prescribed by: SARAHI PLAZA on 07/10/221348 Last Action: Reviewed Simvastatin (Simvastatin) 40 Mg Tablet, 40 MG PO HS, (Reported) Entered as Reported by: MAC RENAE on 07/10/22814 Last Action: Reviewed Spironolactone (Spironolactone) 25 Mg Tablet, 25 MG PO DAILY Prescribed by: SARAHI PLAZA on 07/10/22 170 Last Action: Reviewed Valsartan (Valsartan) 80 Mg Tablet, 80 MG PO DAILY, (Reported) Entered as Reported by: MAC RENAE on 07/13/22 100 Last Action: Reviewed Discontinued Medications Atorvastatin Calcium (Lipitor) 40 Mg Tablet, 40 MG PO DAILY Discontinued Reason: No Longer Taking Prescribed by: LORENA OSULLIVAN on 02/27/22520 Carvedilol (Carvedilol) 6.25 Mg Tablet, 12.5 MG PO BID Discontinued Reason: Duplicate Order Prescribed by: LORENA OSULLIVAN on 02/27/22520 Clonidine HCl (Clonidine HCl) 0.1 Mg Tablet, 0.1 MG PO Q4HR PRN for sbp>160 Discontinued Reason: Duplicate Order Prescribed by: LORENA OSULLIVAN on 02/27/22520 Clonidine HCl (Clonidine HCl) 0.1 Mg Tablet, 0.1 MG PO BID Discontinued Reason: Duplicate Order Prescribed by: LORENA OSULLIVAN on 02/27/22520 Clonidine HCl (Clonidine HCl) 0.1 Mg Tablet, 0.1 MG PO BID, (Reported) Discontinued Reason: No Longer Taking Entered as Reported by: MAC RENAE on 07/10/22814 Last Action: Discontinued Prednisone (Prednisone) 10 Mg Tab.ds.pk, 10 MG PO DAILY Discontinued Reason: No Longer Taking Prescribed by: LORENA OSULLIVAN on 02/27/22520 Spironolactone (Spironolactone) 25 Mg Tablet, 6.25 MG PO DAILY Discontinued Reason: No Longer Taking Prescribed by: LORENA OSULLIVAN on 02/27/22520 Topiramate (Topamax) 25 Mg Tablet, 25 MG PO DAILY Discontinued Reason: No Longer Taking Prescribed by: LORENA OSULLIVAN on 02/27/22520 Exam Vital Signs Vital Signs Date Time Temp Pulse Resp B/P (MAP) Pulse Ox O2 Delivery O2 Flow Rate FiO2 07/13/22 12:24 81 07/13/22 11:00 28 135/46 (75) 98 Nasal Cannula 3.00 07/13/22 08:15 36.4 07/12/22 23:14 32 Physical Exam Normal cardiovascular examination. Normal chest examination Labs Laboratory Tests Test 07/12/22 18:50 07/12/22 22:17 07/13/22 05:28 Range/Units White Blood Count 12.3 H 13.5 H 4.3-11.0 10^3/uL Red Blood Count 4.79 4.21 3.80-5.11 10^6/uL Hemoglobin 14.0 12.4 11.5-16.0 g/dL Hematocrit 46 41 35-52 % Mean Corpuscular Volume 96 96 80-99 fL Mean Corpuscular Hemoglobin 29 30 25-34 pg Mean Corpuscular Hemoglobin Concent 31 L 31 L 32-36 g/dL Red Cell Distribution Width 13.0 13.2 10.0-14.5 % Platelet Count 225 204 130-400 10^3/uL Mean Platelet Volume 11.8 11.5 9.0-12.2 fL Immature Granulocyte % (Auto) 0 0 % Neutrophils (%) (Auto) 82 H 91 H 42-75 % Lymphocytes (%) (Auto) 7 L 4 L 12-44 % Monocytes (%) (Auto) 11 2 0-12 % Eosinophils (%) (Auto) 0 2 0-10 % Basophils (%) (Auto) 0 0 0-10 % Neutrophils # (Auto) 10.1 H 12.3 H 1.8-7.8 10^3/uL Lymphocytes # (Auto) 0.8 L 0.6 L 1.0-4.0 10^3/uL Monocytes # (Auto) 1.3 H 0.3 0.0-1.0 10^3/uL Eosinophils # (Auto) 0.0 0.2 0.0-0.3 10^3/uL Basophils # (Auto) 0.0 0.1 0.0-0.1 10^3/uL Immature Granulocyte # (Auto) 0.0 0.1 0.0-0.1 10^3/uL Prothrombin Time 12.1 L 11.8 L 12.2-14.7 SEC INR Comment 0.9 0.8 0.8-1.4 Activated Partial Thromboplast Time 28 29 24-35 SEC Sodium Level 143 140 135-145 MMOL/L Potassium Level 4.6 5.1 H 3.6-5.0 MMOL/L Chloride Level 105 104 98-107 MMOL/L Carbon Dioxide Level 27 27 21-32 MMOL/L Anion Gap 11 9 5-14 MMOL/L Blood Urea Nitrogen 29 H 26 H 7-18 MG/DL Creatinine 1.19 0.88 0.60-1.30 MG/DL Estimat Glomerular Filtration Rate 48 68 BUN/Creatinine Ratio 24 30 Glucose Level 153 H 141 H 70-105 MG/DL Calcium Level 10.6 H 10.4 H 8.5-10.1 MG/DL Corrected Calcium 10.6 H 10.6 H 8.5-10.1 MG/DL Magnesium Level 1.6 1.6 1.6-2.4 MG/DL Total Bilirubin 0.2 0.2 0.1-1.0 MG/DL Aspartate Amino Transf (AST/SGOT) 29 17 5-34 U/L Alanine Aminotransferase (ALT/SGPT) 38 29 0-55 U/L Alkaline Phosphatase 82 71 40-136 U/L Myoglobin 27.4 10.0-92.0 NG/ML Troponin I < 0.028 < 0.028 <0.028 NG/ML C-Reactive Protein High Sensitivity 11.47 H 13.45 H 0.00-0.50 MG/DL B-Type Natriuretic Peptide 701.1 H 771.1 H <100.0 PG/ML Total Protein 7.4 6.7 6.4-8.2 GM/DL Albumin 4.0 3.7 3.2-4.5 GM/DL Lactic Acid Level 1.29 0.50-2.00 MMOL/L Phosphorus Level 3.2 2.3-4.7 MG/DL Triglycerides Level 59 <150 MG/DL Cholesterol Level 181 < 200 MG/DL LDL Cholesterol Direct 102 1-129 MG/DL VLDL Cholesterol 12 5-40 MG/DL HDL Cholesterol 54 40-60 MG/DL ECG Impression ECG Initial ECG Impression: Normal A/P-Cardiology Assessment/Admission Diagnosis Prolonged chest pain, COPD exacerbation, Acute respiratory failure, CAD/CABG, Hypertensive urgency Plan Prolonged chest pain, negative EKG. First set of troponin is negative. She has been having chest pain for the last few days. Serial troponin. We will start the patient on dual antiplatelet therapy. Continue Lovenox. Echocardiogram and nuclear stress test. Unfortunately patient had coffee this morning therefore nuclear stress test is scheduled for tomorrow. Dr. Chavez will take over care tomorrow. COPD exacerbation, defer to the primary team. Acute respiratory failure, COPD, pneumonia. Defer to the primary team CAD/CABG, start dual antiplatelet therapy. PAUL inhibitor, beta-frankie, high- dose statin therapy. Hypertensive urgency, restart lisinopril and beta-frankie. Systolic blood pressure of [address] Chavez to take over cardiology care tomorrow Dean VIRAMONTES MD July 13, 2022 12:45
[2022-07-13] MEDS: lisINopril 40 MG (PRINIVIL) TABLET PO SCH (12:55)
[2022-07-13] MEDS: cloNIDine 0.1 MG (CATAPRES) TAB PO PRN ×2 (15:33→21:12)
[2022-07-14] VITALS (7 sets, daily range): BP systolic 129–211; BP diastolic 68–85
[2022-07-14] MEDS: NITROGLYCERIN DRIP 25 MG/250 ML D5W (PRE-MIX) IV SCH ×2 (01:00→10:19)
[2022-07-14] MEDS: RT-ALBUTEROL/IPRATROPIUM 3 ML (DUONEB) VIAL INH SCH ×6 (02:54→22:38)
[2022-07-14] MEDS: cloNIDine 0.1 MG (CATAPRES) TAB PO PRN ×3 (04:52→23:52)
[2022-07-14] MEDS: CEFEPIME 1,000 MG/NS 50 ML IVPB IV SCH ×2 (04:53)
[2022-07-14 04:58] LABS: BASOPHILS % (AUTO) 0 % (0-10); EOSINOPHILS % (AUTO) 0 % (0-10); HEMATOCRIT 36 % (35-52); HEMOGLOBIN 11.1 g/dL (11.5-16.0); LYMPHOCYTES # (AUTO) 1.8 10^3/uL (1.0-4.0); LYMPHOCYTES % (AUTO) 14 % (12-44); MEAN CORPUSCULAR HEMOGLOBIN 29 pg (25-34); MEAN CORPUSCULAR HGB CONC 31 g/dL (32-36); MEAN CORPUSCULAR VOLUME 96 fL (80-99); MEAN PLATELET VOLUME 11.4 fL (9.0-12.2); MONOCYTES # (AUTO) 1.3 10^3/uL (0.0-1.0); MONOCYTES % (AUTO) 10 % (0-12); NEUTROPHILS # (AUTO) 9.7 10^3/uL (1.8-7.8); NEUTROPHILS % (AUTO) 75 % (42-75); PLATELET COUNT 218 10^3/uL (130-400)
[2022-07-14 05:38] LABS: ALBUMIN 3.1 GM/DL (3.2-4.5); POTASSIUM 4.8 MMOL/L (3.6-5.0)
[2022-07-14 05:39] LABS: CALCIUM 9.8 MG/DL (8.5-10.1)
[2022-07-14] MEDS: KCL 20 MEQ TAB (K-DUR) PO SCH (05:39)
[2022-07-14] MEDS: POTASSIUM CL 10MEQ/50ML IVPB 50 ML IV SCH (05:39)
[2022-07-14 05:40] LABS: TOTAL PROTEIN 5.8 GM/DL (6.4-8.2)
[2022-07-14 05:42] LABS: BILIRUBIN,TOTAL 0.1 MG/DL (0.1-1.0)
[2022-07-14 05:44] LABS: CREATININE SERUM 0.81 MG/DL (0.60-1.30); PHOSPHORUS 1.9 MG/DL (2.3-4.7)
[2022-07-14 05:47] LABS: MAGNESIUM 1.8 MG/DL (1.6-2.4)
[2022-07-14] MEDS: CATHETER FLUSH 10 ML SYR IVP SCH ×3 (05:49→22:02)
[2022-07-14] MEDS: MAGNESIUM 1 GM/100 ML IVPB 100 ML IV SCH ×3 (05:49→06:16)
[2022-07-14] MEDS ORDERED: predniSONE 20 MG TAB PO SCH (07:00)
--- NOTE | 2022-07-14 07:26 | Tele-ICU Progress Note ---
Subjective Date Seen by a Provider: July 14, 2022 Time Seen by a Provider: 07:24 Subjective/Events-last exam Service provided via interactive audio and video telecommunDistra E-CARE system to a patient admitted to ICU bed in [facility]. Available chart/ vitals / labs / Images reviewed H&P is from ER notes Patient's information available about PMH, Shx, Fhx allergy reviewed in EMR. ROS as per chart and RN report Now in ICU, hemodynamically stable except BP a little high Video assessment done using teleICU camera, rest of exam as per RN Discussed with RN. 76 yo F admitted with CP, w/u negative, also COPD, trop negative CXR 07/13 shows mild hyperinflation, vague RLL infiltrate, On IV Cefepime, IV NTG @ 40, BP 166/73, Plavix, albuterol, po prednisone 40 Sepsis Event Evaluation Height, Weight, BMI Height: 4'11.00" Weight: 151lbs. 14.8oz. 68.453107ql; 28.01 BMI Method:Stated Focused Exam Lactate Level 07/12/22 22:17: Lactic Acid Level 1.29 Exam Exam Patient acknowledged, consented, and participated in this virtual visit which was conducted using real time audio/video Vital Signs Date Time Temp Pulse Resp B/P (MAP) Pulse Ox O2 Delivery O2 Flow Rate FiO2 07/14/22 07:12 98 Nasal Cannula 3.00 07/14/22 07:03 61 129/56 07/14/22 06:00 62 19 137/59 (85) 98 Nasal Cannula 3.00 07/14/22 05:00 65 15 150/66 (94) 98 Nasal Cannula 3.00 07/14/22 04:00 69 19 159/69 (99) 98 Nasal Cannula 3.00 07/14/22 04:00 36.5 98 Nasal Cannula 3.00 07/14/22 04:00 99 Nasal Cannula 3.00 07/14/22 03:00 72 21 143/58 (86) 96 Nasal Cannula 3.00 07/14/22 02:54 98 Nasal Cannula 3.00 07/14/22 02:00 65 13 143/59 (87) 98 Nasal Cannula 3.00 07/14/22 01:00 67 167/72 07/14/22 01:00 66 18 140/60 (86) 98 Nasal Cannula 3.00 07/14/22 00:47 67 07/14/22 00:00 68 18 167/72 (103) 98 Nasal Cannula 3.00 07/14/22 00:00 36.1 07/14/22 00:00 98 Nasal Cannula 3.00 07/14/22 00:00 167/72 07/13/22 23:00 70 17 165/64 (97) 98 Nasal Cannula 3.00 07/13/22 22:00 71 20 158/69 (98) 97 Nasal Cannula 3.00 07/13/22 21:52 70 192/80 07/13/22 21:41 98 Nasal Cannula 3.00 07/13/22 21:10 67 169/66 07/13/22 21:00 67 19 169/66 (100) 98 Nasal Cannula 3.00 07/13/22 20:00 68 19 160/63 (95) 97 Nasal Cannula 3.00 07/13/22 19:56 98 Nasal Cannula 3.00 07/13/22 19:44 36.8 07/13/22 19:00 74 07/13/22 19:00 73 22 160/68 (98) 98 Nasal Cannula 3.00 07/13/22 18:32 97 Nasal Cannula 3.00 07/13/22 18:00 77 21 172/72 (105) 98 Nasal Cannula 3.00 07/13/22 17:00 71 17 176/78 (110) 98 Nasal Cannula 3.00 07/13/22 16:30 97 Nasal Cannula 3.00 07/13/22 16:14 36.9 07/13/22 16:00 77 19 200/69 (112) 98 Nasal Cannula 3.00 07/13/22 15:00 79 21 204/92 (129) 97 Nasal Cannula 3.00 07/13/22 14:33 100 Nasal Cannula 3.00 07/13/22 14:00 71 17 204/84 (124) 97 Nasal Cannula 3.00 07/13/22 13:26 36.5 07/13/22 13:00 80 19 193/73 (113) 98 Nasal Cannula 3.00 07/13/22 12:57 81 203/84 07/13/22 12:35 98 Nasal Cannula 3.00 07/13/22 12:24 81 07/13/22 12:00 90 28 129/57 (81) 99 Nasal Cannula 3.00 07/13/22 11:00 74 28 135/46 (75) 98 Nasal Cannula 3.00 07/13/22 10:17 99 Nasal Cannula 3.00 07/13/22 10:00 73 18 144/54 (84) 98 Nasal Cannula 3.00 07/13/22 09:00 75 21 141/55 (83) 97 Nasal Cannula 3.00 07/13/22 08:15 36.4 07/13/22 08:00 75 21 162/63 (96) 97 Nasal Cannula 3.00 07/13/22 07:45 97 Nasal Cannula 3.00 I & O 07/14/22 07:00 Intake Total 1635 ml Output Total 2425 ml Balance -790 ml Height & Weight Height: 4'11.00" Weight: 151lbs. 14.8oz. 68.290957fb; 28.01 BMI Method:Stated General Appearance: No Apparent Distress, Chronically ill HEENT: PERRL/EOMI, Normal ENT Inspection Neck: Normal Inspection; No JVD Respiratory: Lungs Clear, No Respiratory Distress, Decreased Breath Sounds, Rhonci; No Wheezing; Other (on 3lpm) Cardiovascular: Regular Rate, Rhythm, No Murmur Capillary Refill: Less Than 3 Seconds Gastrointestinal: normal bowel sounds, non tender, soft Extremity: Normal Inspection, No Pedal Edema Neurologic/Psychiatric: Alert, Oriented x3, Normal Mood/Affect Skin: Normal Color, Warm/Dry; No Rash Results Lab Laboratory Tests 07/12/22 18:50 07/13/22 05:28 07/14/22 04:30 Assessment/Plan Assessment/Plan CP-does not appear to be an ACS, Had stress test doay, results pending COPD, will starte to taper prednisone to 30 mg in am HTN, no on po carvidlol, linsinopril, clonidine-will continue, try to taper IV NTG Critical Care: Critically Ill Patient Time spent with patient (mins): 20 ELINA QUIÑONEZ MD July 14, 2022 07:26
[2022-07-14] MEDS ORDERED: REGADENOSON 0.4 MG/5 ML SYR (LEXISCAN) IV ONE ×2 (08:13→08:30)
--- NOTE | 2022-07-14 08:38 | Cardiology Progress Note ---
Subjective Date Seen by Provider: July 14, 2022 Time Seen by Provider: 08:35 Subjective/Events-last exam Patient was seen at bedside, feeling better, reporting improvement, no further episodes of chest pain. Focused Exam Lactate Level 07/12/22 22:17: Lactic Acid Level 1.29 Objective-Cardiology Exam Last Set of Vital Signs Vital Signs 07/12/22 07/14/22 07/14/22 07/14/22 07/14/22 23:14 07:00 07:12 07:59 08:22 Temp 36.6 Pulse 64 Resp 19 B/P (MAP) 129/68 (88) Pulse Ox 98 O2 Delivery Nasal Cannula O2 Flow Rate 3.00 FiO2 32 I&O Intake and Output 07/14/22 00:00 Intake Total 1885 ml Output Total 2475 ml Balance -590 ml Intake Oral 1335 ml IV Total 550 ml Output Urine Total 2475 ml General: Alert, Oriented X3, Cooperative HEENT: Atraumatic, PERRLA Neck: Supple, No JVD, No Thyromegaly Lungs: Clear to Auscultation, Normal Air Movement Heart: Regular Rate, Normal S1, Normal S2, No Murmurs Abdomen: Normal Bowel Sounds, Soft, No Tenderness, No Hepatosplenomegaly, No Ma sses Extremities: No Clubbing, No Cyanosis, No Edema, Normal Pulses, No Tender ness/Swelling Skin: No Rashes, No Breakdown, No Significant Lesion Neuro: Normal Speech, Normal Tone, Sensation Intact Psych/Mental Status: Mental Status NL, Mood NL Results Lab Laboratory Tests 07/14/22 04:30 A/P-Cardiology Admission Diagnosis Chest pain Coronary artery disease Hypertension Hyperlipidemia Assessment/Plan Chest pain nonspecific etiology, probably unstable angina Patient underwent stress test this morning. We will continue to monitor Patient follows with Dr. Mendoza. Coronary artery disease, history of CABG x2 done in 2011. No further episodes of chest pain reported Hypertension, labile blood pressure Continue to monitor blood pressure Hyperlipidemia, monitor lipids COPD NICO JIMENEZ MD July 14, 2022 08:38
[2022-07-14] MEDS ORDERED: lisINopril 40 MG (PRINIVIL) TABLET PO SCH (09:00)
[2022-07-14] MEDS: lisINopril 40 MG (PRINIVIL) TABLET PO SCH (09:34)
[2022-07-14] MEDS: PANTOPRAZOLE 40 MG (PROTONIX) TAB PO SCH (09:34)
[2022-07-14] MEDS: CLOPIDOGREL 75 MG (PLAVIX) TABLET PO SCH (09:34)
[2022-07-14] MEDS: ENOXAPARIN 40 MG/0.4 ML (LOVENOX) SYR SC SCH (09:35)
--- NOTE | 2022-07-14 11:45 | Progress Note - Hospitalist ---
Subjective HPI/CC On Admission Date Seen by Provider: July 14, 2022 Pt is a 76yoCF with a PMH of COPD, HTN, and CAD s/p CABG who presented to the ER due to chest pain. She states she was admitted to the hospital on 07/09- and didn't really feel any better when she discharged but wasn't any worse either. She states she developed michelle pain as well. She thinks it may have been present while she was here but got a lot worse yesterday. It was in the center of her chest and radiated down both of her arms. She was nauseated with this as well. She states when this happened and she needed a CABG she was also vomiting but otherwise this felt similar. She did not take any nitro but tried her breathing treatments without improvement. EMS was summoned and she was found be satting 80%. This improved to 80s with a breathing treatment. There was concern for pna on imaging as well and given green sputum production she was started on IV abx. This morning s Subjective/Events-last exam Pt reports doing better today. No SOB or Chest pain. Just back from stress test. Focused Exam Lactate Level 07/12/22 22:17: Lactic Acid Level 1.29 Objective Exam Vital Signs Vital Signs Date Time Temp Pulse Resp B/P (MAP) Pulse Ox O2 Delivery O2 Flow Rate FiO2 07/14/22 11:00 60 24 156/66 (96) 100 Nasal Cannula 3.00 07/14/22 07:59 36.6 07/12/22 23:14 32 Capillary Refill : Less Than 3 Seconds General Appearance: No Apparent Distress, Chronically ill Respiratory: Lungs Clear, No Accessory Muscle Use, Other (on 3lpm) Cardiovascular: Regular Rate, Rhythm, No Murmur Gastrointestinal: Normal Bowel Sounds, Non Tender, Soft Neurologic/Psychiatric: Alert, Oriented x3 Results/Procedures Lab Laboratory Tests 07/14/22 04:30 Patient resulted labs reviewed. Imaging: Reviewed Imaging Report Assessment/Plan Assessment and Plan Assess & Plan/Chief Complaint Chronic respiratory failure COPD exacerbation and ?pneumonia DC abx and monitor off Sputum culture pending Blood cultures with NGTD MAT protocol Continue Prednisone Chest pain Hypertensive emergency CAD s/p CABG Was intermittently on nitro Chest pain resolved Troponin negative x2 Cardiology consulted, appreciate recs Continue home meds as appropriate Underwent stress test this AM Tobacco abuse Encouraged cessation Critical Care Critically Ill Patient Diagnosis/Problems Diagnosis/Problems (1) Acute exacerbation of chronic obstructive pulmonary disease (COPD) Status: Acute (2) Respiratory failure Status: Acute (3) Atypical chest pain Status: Acute (4) HTN (hypertension) Status: Acute MALIKA SCHUSTER MD July 14, 2022 11:45
--- NOTE | 2022-07-14 14:46 | Physical Therapy Evaluation ---
PT Evaluation-General Medical Diagnosis Admission Date July 12, 2022 at 22:34 Medical Diagnosis: COPD/ Chest pain Onset Date: July 13, 2022 Therapy Diagnosis Therapy Diagnosis: Gait deficit, strength deficit Height/Weight Height (Feet): 4 Height (Inches): 11.00 Weight (Pounds): 151 Weight (Ounces): 14.8 Precautions Precautions/Isolations: Fall Prevention, Standard Precautions Weight Bear Status Right Lower Extremity: Right Full Weight Bearing Left Lower Extremity: Left Full Weight Bearing Referral Physician: Dr. Tuttle Reason for Referral: Evaluation/Treatment Medical History Pertinent Medical History: CABG, CAD, COPD, GERD, HTN, Smoking Social History Home: Single Level Current Living Status: Alone Entry Into Home: Ramp PT Steps Into Home: 0 Prior Prior Level of Function SCALE: Activities may be completed with or without assistive devices. 4-Jklogukcmi-hnodxyo completes the activity by him/herself with no assistance from a helper. 5-Set-up or Clean-up Assistance-helper sets up or cleans up; patient completes activity. [place] assists only prior to or following the activity. 4-Supervision or Touching Assistance-helper provides verbal cues and/or touching/steadying and/or contact guard assistance as patient completes activit y. Assistance may be provided throughout the activity or intermittently. 3-Partial/Moderate Assistance-helper does LESS THAN HALF the effort. [place] lifts, holds or supports trunk or limbs, but provides less than half the effort. 2-Substantial/Maximal Assistance-helper does MORE THAN HALF the effort. [place] lifts or holds trunk or limbs and provides more than half the effort. 4-Lyxadiwxn-qgmoqt does ALL the effort. Patient does none of the effort to complete the activity. Or, the assistance of 2 or more helpers is required for the patient to complete the activity. If activity was not attempted, code reason: 7-Patient Refused. 9-Not Applicable-not attempted and the patient did not perform the activity before the current illness, exacerbation or injury. 10-Not Attempted due to Environmental Limitations-(lack of equipment, weather restraints, etc.). 88-Not Attempted due to Medical Conditions or Safety Concerns. Bed Mobility: 6 Transfers (B,C,W/C): 6 Gait: 6 Stairs: 6 Indoor Mobility (Ambulation): Independent Stairs: Independent Prior Devices Use: Manual wheelchair PT Evaluation-Current Subjective Patient sitting in chair upon PT arrival, agreeable to treatment. Patient rates pain at 0/10 currently. Objective Patient Orientation: Person, Place, Time, Situation ROM/Strength ROM Lower Extremities WFLs BLEs all planes Strength Lower Extremities 4-/5 BLEs all planes Sensory Vision: Wears Glasses Hearing: Functional Sensation Right Lower Extremit: Intact Sensation Left Lower Extremity: Intact Transfers Sit to Stand (QC): 4 Chair/Cmk-vb-Wsouw Xfer(QC): 4 Gait Does the Patient Walk?: Yes Mode of Locomotion: Walk Anticipated Mode of Locomotion: Walk Walk 10 feet (QC): 3 Walk 50 ft with 2 Turns(QC): 3 Gait Assistive Device: None Comments/Gait Description Patient would benefit from use of cane for short term use; reports she lives in a 5th wheel so a FWW may not work well. Balance Sitting Static: Normal Sitting Dynamic: Good Standing Static: Fair Standing Dynamic: Fair Assessment/Needs Patient tolerated treatment well. Performs all observed transfers with SBA. Patient ambulates 70 feet sans Assistive device, with Min A. Patient reaches for the wall during ambulation and states that she got a little dizzy. Patient in chair post treatment with all needs met, nursing notified, call light in hand. Rehab Potential: Fair Equipment Needs Cane PT Care Home Goals Care Home Goals PT Care Home Goals Time Frame: July 29, 2022 Roll Left & Right (QC): 6 Sit to Lying (QC): 6 Lying-Sitting on Side/Bed(QC): 6 Sit to Stand (QC): 6 Chair/Ybn-hn-Nyfww Xfer(QC): 6 Toilet Transfer (QC): 6 Does the Patient Walk: Yes Walk 10 feet (QC): 6 Walk 50ft with 2 Turns (QC): 6 Walk 150 ft (QC): 6 1 Step (curb) (QC): 4 4 Steps (QC): 4 PT Plan Problem List Problem List: Activity Tolerance, Functional Strength, Safety, Balance, Gait, Transfer, Bed Mobility, ROM Treatment/Plan Treatment Plan: Continue Plan of Care Treatment Plan: Bed Mobility, Education, Functional Activity Lou, Functional Strength, Group Therapy, Gait, Safety, Therapeutic Exercise, Transfers Treatment Duration: July 29, 2022 Frequency: 6 times per week Estimated Hrs Per Day: .25 hour per day Patient and/or Family Agrees t: Yes Safety Risks/Education Patient Education: Gait Training, Transfer Techniques Teaching Recipient: Patient Teaching Methods: Demonstration, Discussion Response to Teaching: Verbalize Understanding, Return Demonstration Time Time In: 1418 Time Out: 1430 DATE: July 14, 2022 Total Billed Treatment Time: 12 Total Billed Treatment Visit, CASEY LEÓN PT July 14, 2022 14:46
[2022-07-14] MEDS ORDERED: ACETAMINOPHEN 500 MG TAB (TYLENOL) PO PRN (15:30)
--- NOTE | 2022-07-14 17:00 | Cardiology Stress Test Report ---
Stress Test Report Date of Procedure/Referring: Date of Procedure: July 14, 2022 PCP No,Local Physician Admitting Physician Admitting Physician: Carlita Bustos MD Attending Physician: Bethany Tuttle MD Indications: CP Baseline Heart Rate: 60 Baseline Blood Pressure: Blood Pressure Systolic: 210 Blood Pressure Diastolic: 81 Baseline Vitals Vital Signs Date Time Temp Pulse Resp B/P (MAP) Pulse Ox O2 Delivery O2 Flow Rate FiO2 07/12/22 18:45 Nasal Cannula 3.00 07/12/22 18:45 36.5 100 24 200/92 (128) 90 07/12/22 23:14 32 Baseline EKG: Baseline EKG: NSR Summary After explaining the procedure to the patient, she signed a consent and then brought to the stress nuclear laboratory. Patient received 0.4 mg Lexiscan for stress test, ECG, heart rate and blood pressure were monitored continuously. Resting and stress dose of radio tracer were injected, imaging was acquired and reviewed in short axis, horizontal long axis and vertical long axis views. TID: 1.06 SSS: 5 SDS: 4 EF: 68 Nondiagnostic Lexiscan stress test due to patient receiving nitroglycerin Patient tolerated Lexiscan well Mild decrease uptake at the inferoapical segment and anterior apical segment with minimal reversibility Normal left ventricular size, ejection fraction 68% NICO JIMENEZ MD July 14, 2022 17:00
[2022-07-14] MEDS ORDERED: FAMOTIDINE 20 MG (PEPCID) TABLET PO PRN (17:15)
[2022-07-14] MEDS ORDERED: cloNIDine 0.1 MG PATCH (CATAPRES TTS) TDSY TD SCH (17:30)
[2022-07-14] MEDS: MELATONIN 10 MG TABLET PO SCH (20:04)
[2022-07-14] MEDS ORDERED: NON-FORMULARY MEDICATION 1 EA EA (Simvastatin 40 MG) PO SCH (21:00)
[2022-07-15] VITALS (7 sets, daily range): BP systolic 151–221; BP diastolic 65–87
[2022-07-15] MEDS: RT-ALBUTEROL/IPRATROPIUM 3 ML (DUONEB) VIAL INH SCH ×3 (02:54→11:06)
[2022-07-15 05:21] LABS: BASOPHILS % (AUTO) 0 % (0-10); EOSINOPHILS # (AUTO) 0.1 10^3/uL (0.0-0.3); EOSINOPHILS % (AUTO) 1 % (0-10); HEMATOCRIT 41 % (35-52); HEMOGLOBIN 12.6 g/dL (11.5-16.0); LYMPHOCYTES # (AUTO) 2.6 10^3/uL (1.0-4.0); LYMPHOCYTES % (AUTO) 22 % (12-44); MEAN CORPUSCULAR HEMOGLOBIN 29 pg (25-34); MEAN CORPUSCULAR HGB CONC 31 g/dL (32-36); MEAN CORPUSCULAR VOLUME 95 fL (80-99); MEAN PLATELET VOLUME 11.4 fL (9.0-12.2); MONOCYTES # (AUTO) 1.2 10^3/uL (0.0-1.0); MONOCYTES % (AUTO) 10 % (0-12); NEUTROPHILS # (AUTO) 7.7 10^3/uL (1.8-7.8); NEUTROPHILS % (AUTO) 66 % (42-75); PLATELET COUNT 228 10^3/uL (130-400); WHITE BLOOD COUNT 11.7 10^3/uL (4.3-11.0)
[2022-07-15] MEDS: CATHETER FLUSH 10 ML SYR IVP SCH (05:37)
[2022-07-15 05:42] LABS: ALBUMIN 3.3 GM/DL (3.2-4.5); BILIRUBIN,TOTAL 0.1 MG/DL (0.1-1.0); CALCIUM 10.7 MG/DL (8.5-10.1); CREATININE SERUM 0.75 MG/DL (0.60-1.30); MAGNESIUM 1.7 MG/DL (1.6-2.4); PHOSPHORUS 2.4 MG/DL (2.3-4.7); POTASSIUM 4.4 MMOL/L (3.6-5.0)
[2022-07-15] MEDS ORDERED: amLODIPine 5 MG (NORVASC) TAB PO SCH (06:30)
[2022-07-15] MEDS ORDERED: predniSONE 20 MG TAB PO SCH (07:00)
[2022-07-15] MEDS ORDERED: FAMOTIDINE 20 MG (PEPCID) TABLET PO PRN (07:30)
[2022-07-15] MEDS: cloNIDine 0.1 MG (CATAPRES) TAB PO PRN ×2 (07:42→12:00)
--- NOTE | 2022-07-15 07:51 | Cardiology Progress Note ---
Subjective Date Seen by Provider: July 15, 2022 Time Seen by Provider: 07:50 Subjective/Events-last exam Patient was seen at bedside, sitting comfortably, eating breakfast Blood pressure is poorly controlled Review of Systems General: No Chills, No Night Sweats; Fatigue; No Malaise, No Appetite, No Other HEENT: No Head Aches, No Visual Changes, No Eye Pain, No Ear Pain, No Dysphasia, No Sinus Congestion, No Post Nasal Drip, No Sore Throat, No Other Pulmonary: Dyspnea; No Cough, No Pleuritic Chest Pain, No Other Cardiovascular: No: Chest Pain, Palpitations, Orthopnea, Paroxysmal Noc. Dyspnea, Edema, Lt Headedness, Other Focused Exam Lactate Level 07/12/22 22:17: Lactic Acid Level 1.29 Objective-Cardiology Exam Last Set of Vital Signs Vital Signs 07/12/22 07/15/22 23:14 07:40 Temp 36.2 Pulse 76 Resp 16 B/P (MAP) 210/86 (127) Pulse Ox 93 O2 Delivery Nasal Cannula O2 Flow Rate 3.00 FiO2 32 I&O Intake and Output 07/15/22 00:00 Intake Total 800 ml Output Total 1500 ml Balance -700 ml Intake Oral 300 ml IV Total 500 ml Output Urine Total 1500 ml # Voids 1 General: Alert, Oriented X3, Cooperative HEENT: Atraumatic, PERRLA Neck: Supple, No JVD, No Thyromegaly Lungs: Clear to Auscultation, Normal Air Movement Heart: Regular Rate, Normal S1, Normal S2, No Murmurs Abdomen: Normal Bowel Sounds, Soft, No Tenderness, No Hepatosplenomegaly, No Masses Extremities: No Clubbing, No Cyanosis, No Edema, Normal Pulses, No Tenderness/Swelling Skin: No Rashes, No Breakdown, No Significant Lesion Neuro: Normal Speech, Normal Tone, Sensation Intact Psych/Mental Status: Mental Status NL, Mood NL Results Lab Laboratory Tests 07/15/22 04:29 A/P-Cardiology Admission Diagnosis Chest pain Coronary artery disease Hypertension Hyperlipidemia Assessment/Plan Chest pain nonspecific etiology, probably unstable angina Patient underwent stress test this morning. We will continue to monitor Patient follows with Coronary artery disease, history of CABG x2 done in 2011. No further episodes of chest pain reported Hypertension, labile blood pressure I will give additional clonidine today, monitor blood pressure Hyperlipidemia, monitor lipids COPD, having active wheezing today Managed by medical team NICO JIMENEZ MD July 15, 2022 07:51
[2022-07-15] MEDS: ENOXAPARIN 40 MG/0.4 ML (LOVENOX) SYR SC SCH (08:04)
[2022-07-15] MEDS: CLOPIDOGREL 75 MG (PLAVIX) TABLET PO SCH (08:04)
[2022-07-15] MEDS: lisINopril 40 MG (PRINIVIL) TABLET PO SCH (08:04)
[2022-07-15] MEDS: PANTOPRAZOLE 40 MG (PROTONIX) TAB PO SCH (08:04)
[2022-07-15] MEDS ORDERED: SPIRONOLACTONE 25 MG (ALDACTONE) TAB PO SCH (09:00)
[2022-07-15] MEDS ORDERED: VITAMIN D3 25 MCG (1,000 UNITS) TABLET PO SCH (09:00)
--- NOTE | 2022-07-15 11:36 | Discharge Summary ---
Diagnosis/Chief Complaint Date of Admission July 12, 2022 at 22:34 Date of Discharge Admission Diagnosis COPD Exacerbation Primary Care No,Local Physician Discharge Diagnosis (1) Acute exacerbation of chronic obstructive pulmonary disease (COPD) Status: Acute (2) Respiratory failure Status: Acute (3) Atypical chest pain Status: Acute (4) HTN (hypertension) Status: Acute Discharge Summary Discharge Physical Exam Allergies: Coded Allergies: amlodipine (Verified Allergy, Intermediate, Rash, 07/15/22) Sulfa (Sulfonamide Antibiotics) (Verified Allergy, Unknown, 07/09/22) Vitals & I&Os Vital Signs Date Time Temp Pulse Resp B/P (MAP) Pulse Ox O2 Delivery O2 Flow Rate FiO2 07/15/22 16:07 07/15/22 13:04 60 16 98 Nasal Cannula 3.00 07/15/22 12:00 36.5 General Appearance: No Apparent Distress, Chronically ill Respiratory: Lungs Clear, No Accessory Muscle Use, No Respiratory Distress; No Wheezing Cardiovascular: Regular Rate, Rhythm Neurologic/Psychiatric: Alert, Oriented x3 Hospital Course Patient was admitted to the hospital secondary to COPD exacerbation. She was also having prolonged concurrent chest pain and so was seen by cardiology and underwent stress test. Her stress test was negative. Her blood pressures were very elevated and this was likely due to hypertensive emergency. Her medications were adjusted and blood pressure control was much better. She was discharged on a steroid taper given her recent readmission for COPD. 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 Labs (last 24 hrs) Microbiology 07/12/22 Blood Culture - Final, Complete No growth 07/12/22 MRSA Screen - Final, Complete MRSA not isolated Patient resulted labs reviewed. Pending Labs Imaging: Reviewed Imaging Report Discussion & Recommendations Discharge Planning: >30 minutes discharge planning Discharge Home Medications: Active Scripts Active Clonidine TTS 2 Patch (Clonidine) 0.2 Mg/24 Hour Patch.tdwk 1 Patch TD Q7D Spironolactone 50 Mg Tablet 50 Mg PO DAILY Iprat-Albut 0.5-3(2.5) mg/3 ml (Ipratropium/Albuterol Sulfate) 0.5 Mg-3 Mg (2.5 Mg Base)/3 Ml Ampul.neb 3 Ml IH Q4H PRN 30 Days Prednisone 10 Mg Tab.ds.pk 10 Mg PO DAILY Take 6 tabs(60mg)daily,decrease by 1 tab(10MG)daily. Reported Famotidine 20 Mg Tablet 20 Mg PO BID PRN Carvedilol 12.5 Mg Tablet 12.5 Mg PO BID WITH MEALS Clonidine HCl 0.1 Mg Tablet 0.1 Mg PO Q4H PRN Simvastatin 40 Mg Tablet 40 Mg PO HS Aspirin EC (Aspirin) 81 Mg Tablet.dr 81 Mg PO DAILY Vitamin D3 (Cholecalciferol (Vitamin D3)) 25 Mcg (1000 Unit) Tablet 25 Mcg PO DAILY Meloxicam 15 Mg Tablet 15 Mg PO DAILY Lisinopril 40 Mg Tablet 40 Mg PO DAILY Diazepam 5 Mg Tablet 5 Mg PO TID PRN Ventolin Hfa (Albuterol Sulfate) 8.5 Gm Hfa.aer.ad 2 Puff IH Q4H PRN Instructions to patient/family Please see electronic discharge instructions given to patient. MALKIA SCHUSTER MD July 15, 2022 11:36
[2022-07-15] MEDS ORDERED: SPIR50TA4 PO (11:41)
[2022-07-15] MEDS ORDERED: CLON1PAT34 TD (11:41)
--- NOTE | 2022-07-15 11:44 | Discharge Inst-Simple/Standard ---
Discharge Inst-Standard Discharge Medications New, Converted or Re-Newed RX: Transmitted to Pharmacy Patient Instructions/Follow Up Plan of Care/Instructions/FU: Please continue to take your medications as written. Please follow up with your primary care doctor to follow up this hospital stay. Activity as Tolerated: Yes Discharge Diet: Low Sodium Diet Return to The Hospital For: Chest pain, shortness of breath, fever, weakness, if you feel you are getting worse. MALIKA SCHUSTER MD July 15, 2022 11:44
[2022-07-15] MEDS ORDERED: SPIRONOLACTONE 25 MG (ALDACTONE) TAB PO NR (11:45)
--- NOTE | 2022-07-15 15:13 | Physical Therapy Daily Note ---
PT Daily Note-Current Subjective Patient sitting in chair upon PT arrival, agreeable to treatment. Patient rates pain at 0/10. Pain Section J - Health Conditions 1. Rarely or not at all 2. Occasionally 3. Frequently 4. Almost constantly 8. Unable to answer Pain Effect on Sleep: 1 Pain Interference with Therapy: 1 Pain Interference w/Day-to-Day: 1 Mental Status Patient Orientation: Person, Place, Time, Situation Transfers SCALE: Activities may be completed with or without assistive devices. 1-Lekqdqhulq-jyrmrwe completes the activity by him/herself with no assistance from a helper. 5-Set-up or Clean-up Assistance-helper sets up or cleans up; patient completes activity. [place] assists only prior to or following the activity. 4-Supervision or Touching Assistance-helper provides verbal cues and/or touching/steadying and/or contact guard assistance as patient completes activity. Assistance may be provided throughout the activity or intermittently. 3-Partial/Moderate Assistance-helper does LESS THAN HALF the effort. [place] lifts, holds or supports trunk or limbs, but provides less than half the effort. 2-Substantial/Maximal Assistance-helper does MORE THAN HALF the effort. [place] lifts or holds trunk or limbs and provides more than half the effort. 0-Mlaohjkpb-vlnrlb does ALL the effort. Patient does none of the effort to complete the activity. Or, the assistance of 2 or more helpers is required for the patient to complete the activity. If activity was not attempted, code reason: 7-Patient Refused. 9-Not Applicable-not attempted and the patient did not perform the activity before the current illness, exacerbation or injury. 10-Not Attempted due to Environmental Limitations-(lack of equipment, weather restraints, etc.). 88-Not Attempted due to Medical Conditions or Safety Concerns. Sit to Stand (QC): 3 Chair/Hmr-xw-Yvkxn Xfer(QC): 3 Weight Bearing Right Lower Extremity: Right Full Weight Bearing Left Lower Extremity: Left Full Weight Bearing Gait Training Does the Patient Walk?: Yes Distance: 200' Walk 10 feet (QC): 4 Walk 50 ft with 2 Turns(QC): 3 Walk 150 ft (QC): 3 Gait Persons Needed: 1 Gait Assistive Device: None Assessment Current Status: Good Progress Patient tolerated treatment well. She performs all transfers with min A to SBA. She ambulates 200 feet with no AD, with min A and verbal cues for safety, progression, conservation of energy. Patient in chair post treatment with all needs met, nursing notified, call light in hand. PT Final Operations Technician Goals [facility] Goals PT Final Operations Technician Goals Time Frame: July 29, 2022 Roll Left & Right (QC): 6 Sit to Lying (QC): 6 Lying-Sitting on Side/Bed(QC): 6 Sit to Stand (QC): 6 Chair/Fyo-cf-Fappr Xfer(QC): 6 Toilet Transfer (QC): 6 Does the Patient Walk: Yes Walk 10 feet (QC): 6 Walk 50ft with 2 Turns (QC): 6 Walk 150 ft (QC): 6 1 Step (curb) (QC): 4 4 Steps (QC): 4 PT Plan Treatment/Plan Treatment Plan: Continue Plan of Care Treatment Plan: Bed Mobility, Education, Functional Activity Lou, Functional Strength, Group Therapy, Gait, Safety, Therapeutic Exercise, Transfers Treatment Duration: July 29, 2022 Frequency: 6 times per week Estimated Hrs Per Day: .25 hour per day Patient and/or Family Agrees t: Yes Safety Risks/Education Patient Education: Gait Training, Transfer Techniques Teaching Recipient: Patient Teaching Methods: Demonstration, Discussion Response to Teaching: Verbalize Understanding, Return Demonstration Time Time In: 1113 Time Out: 1125 DATE: July 15, 2022 Total Billed Treatment Time: 12 Total Billed Treatment Visit, GT CASEY GIPSON PT July 15, 2022 15:13
--- NOTE | 2022-07-15 17:32 | Physician Query Clarification ---
Physician Query-General Query to Physician: Clinical Validation Clarification Dr Odell Tuttle Pneumonia has been documented in the medical record. After study, has Pneumonia been ruled out? If it has been ruled out, please doc ument Pneumonia ruled out" in the progress notes and/or discharge summary. Yes/Agreed, Pneumonia ruled out/is not clinically valid Not agreed, Pneumonia has not been ruled out/is clinically valid* *Please document the clinical evidence supportive of this diagnosis (even if now resolved) in the Progress Notes and Discharge Summary Other, with explanation of the clinical findings Clinically undetermined, no explanation for the clinical findings Additional information: Admitted with chest pain and low 02 sats, VS: HR 100, RR 24, BP 200/92, Sp02 90% on 3L, T 36.5, Documentation of Cough on admission with "green" sputum, Chest Xray on admission: ..".opacities ...may represent atelectasis or infection. No focal consolidation or pleural effusion." later showing " Mild central pulmonary venous congestion." Cefepime given IV on the , In responding to this query, please exercise your independent professional judgment. The purpose of this communication is to more accurately reflect the complexity of your patients condition. The fact that a question is asked does not imply that any particular answer is desired or expected. Thank you for your timely response to this clarification. Catina Larsen MSN, RN Clinical Patient Services Specialist [email or web address] PHYSICIAN RESPONSE: Based on the clinical findings in the record, please respond to the query above on this document as an addendum. Physician Response: Physician Response Not pneumonia. Ruled out. If you have questions please contact: C.O.D. Biller: Ext: Thank you for your time and cooperation. Clinical Patient Services Specialist/C.O.D. Biller This is a permanent part of the medical record CATINA LARSEN July 15, 2022 17:32 MALIKA TUTTLE MD July 19, 2022 13:02
[2022-07-21] MEDS ORDERED: CLONIDINE PATCH REMOVAL TP SCH (17:29)
== END 2022-07-15 14:30 | disposition home or self-care (01) | DRG 190 ==
LOC: EDUNIT# 18:44 → ER 18:46 → ICU 22:34
PROVIDERS: ADMIT Internal Medicine; ATTEND Family Medicine
DX: J44.1 Chronic obstructive pulmonary disease with (acute) exacerbation (principal); J96.21 Acute and chronic respiratory failure with hypoxia; I16.1 Hypertensive emergency; I25.110 Atherosclerotic heart disease of native coronary artery with unstable angina pectoris; R07.89 Other chest pain; E87.5 Hyperkalemia; I16.0 Hypertensive urgency; I10 Essential (primary) hypertension; F17.210 Nicotine dependence, cigarettes, uncomplicated; K21.9 Gastro-esophageal reflux disease without esophagitis; F41.9 Anxiety disorder, unspecified; F32.A Depression, unspecified; H54.7 Unspecified visual loss; Z95.1 Presence of aortocoronary bypass graft; Z99.81 Dependence on supplemental oxygen; Z79.899 Other long term (current) drug therapy; Z79.82 Long term (current) use of aspirin; Z79.52 Long term (current) use of systemic steroids; Z88.2 Allergy status to sulfonamides; Z91.09 Other allergy status, other than to drugs and biological substances
CPT/HCPCS: 36415; 71045; 78452; 80053; 80061; 83605; 83735; 83874; 83880; 84100; 84484; 85025; 85610; 85730; 86141; 87040; 87070; 87081; 87205; 93005; 93017; 93041; 93306; 94640; 94664

== ENCOUNTER 2022-11-12 04:15 | Inpatient (IN) | payer MEDICARE, OTHER ==
[~2022-11-12] VITALS: Ht 172.7 cm; Wt 67.6 kg
[~2022-11-12 04:15] MED LIST changes: +CLON1PAT33 TD; +CLON1PAT34 TD; -POTA10CA44 PO; +POTA10CA84 PO; +SPIR50TA4 PO; +VALS80TA31 PO
[2022-11-12] MEDS ORDERED: ASPIRIN 81 MG CHEWABLE TABLET PO ONE (04:30)
[2022-11-12] MEDS ORDERED: NITROGLYCERIN 0.4 MG SL TABLETS BTL 25'S SL PRN ×2 (04:30→09:00)
--- NOTE | 2022-11-12 04:32 | ED Chest Pain ---
General Chief Complaint: Chest Pain Stated Complaint: CHEST PAIN Source: patient (SOMEWHAT LIMITED HISTORIAN), EMS, old records History of Present Illness Date Seen by Provider: Nov 12, 2022 Time Seen by Provider: 04:18 Initial Comments PT ARRIVES [facility]IA [facility] FROM HOME C/O CHEST PAIN FOR THE LAST 8 HOURS AND IS CONSTANT PAIN IS IN CENTER OF CHEST--SHE IS UNABLE TO RATE PAIN NOTHING WORSENS PAIN SHE DID TAKE NTG X 1 AT SOME POINT, AND IT HELPED A LITTLE, BUT THEN DID NOT TAKE ANY MORE--GIVES NO EXPLANATION WHY SHE DID NOT TAKE MORE. EMS GAVE ASPIRIN AND NTG X 1 AND PT STATES IT ALSO HELPED A LITTLE PT HAS COPD AND IS O2 DEPENDENT AT 4L/NC CONTINOUS PT CONTINUES TO SMOKE DENIES COUGH SHE DENIES FEELING SHORT OF BREATH SHE DID HAVE NAUSEA AND VOMITED AT SOME TIME TONIGHT SHE DENIES SWEATS NO SWELLING IN LEGS/FEET SHE STATES SHE HAS HAD A SORE THROAT NO KNOWN FEVER PT HAS HISTORY OF CAD AND CABG. SHE HAS HTN WELL--SHE HAS A CLONIDINE PATCH IN HER CLOTHING, BUT IT IS NOT ATTACHED TO SKIN. PT CALLED EMS EARLIER TONIGHT AROUND 1999 FOR THIS PROBLEM THEN SHE REFUSED TRANSPORT. 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 WILL AT [facility] Allergies and Home Medications Allergies Coded Allergies: amlodipine (Verified Allergy, Intermediate, Rash, 07/15/22) Sulfa (Sulfonamide Antibiotics) (Verified Allergy, Unknown, 07/09/22) Patient Home Medication List Home Medication List Reviewed: Yes Albuterol Sulfate (Ventolin Hfa) 8.5 Gm Hfa.aer.ad, 2 PUFF IH Q4H PRN for SH ORTNESS OF BREATH, (Reported) Entered as Reported by: STACIE VITAL on 04/29/15 1129 Aspirin (Aspirin EC) 81 Mg Tablet.dr, 81 MG PO DAILY, (Reported) Entered as Reported by: MAC RENAE on 02/13/22 1658 Carvedilol (Carvedilol) 12.5 Mg Tablet, 12.5 MG PO BID WITH MEALS, (Reported) Entered as Reported by: MAC RENAE on 07/10/22 0815 Cholecalciferol (Vitamin D3) (Vitamin D3) 25 Mcg (1000 Unit) Tablet, 25 MCG PO DAILY, (Reported) Entered as Reported by: MAC RENAE on 02/13/22 165 Clonidine (Clonidine TTS 2 Patch) 0.2 Mg/24 Hour Patch.tdwk, 1 PATCH TD Q7D Prescribed by: MALIKA SCHUSTER on 07/15/22 1141 Clonidine HCl (Clonidine HCl) 0.1 Mg Tablet, 0.1 MG PO Q4H PRN for BP OVER 160, (Reported) Entered as Reported by: MAC RENAE on 07/10/22 08 Diazepam (Diazepam) 5 Mg Tablet, 5 MG PO TID PRN for ANXIETY, (Reported) Entered as Reported by: MAC RENAE on 02/13/221656 Famotidine (Famotidine) 20 Mg Tablet, 20 MG PO BID PRN for HEARTBURN, (Reported) Entered as Reported by: MAC RENAE on 07/10/22 08 Ipratropium/Albuterol Sulfate (Iprat-Albut 0.5-3(2.5) mg/3 ml) 0.5 Mg-3 Mg (2.5 Mg Base)/3 Ml Ampul.neb, 3 ML IH Q4H PRN for SHORTNESS OF BREATH Prescribed by: SARAHI PLAZA on 07/10/22 134 Lisinopril (Lisinopril) 40 Mg Tablet, 40 MG PO DAILY, (Reported) Entered as Reported by: MAC RENAE on 02/13/221656 Meloxicam (Meloxicam) 15 Mg Tablet, 15 MG PO DAILY, (Reported) Entered as Reported by: MAC RENAE on 02/13/221656 Prednisone (Prednisone) 10 Mg Tab.ds.pk, 10 MG PO DAILY Prescribed by: SARAHI PLAZA on 07/10/22 1349 Simvastatin (Simvastatin) 40 Mg Tablet, 40 MG PO HS, (Reported) Entered as Reported by: MAC RENAE on 07/10/22 0815 Spironolactone (Spironolactone) 50 Mg Tablet, 50 MG PO DAILY Prescribed by: MALIKA SCHUSTER on 07/15/22 1141 Review of Systems Review of Systems Constitutional: no symptoms reported EENTM: See HPI Respiratory: See HPI Cardiovascular: See HPI Gastrointestinal: See HPI Genitourinary: No Symptoms Reported Musculoskeletal: no symptoms reported Skin: no symptoms reported Psychiatric/Neurological: No Symptoms Reported Endocrine: No Symptoms Reported Hematologic/Lymphatic: No Symptoms Reported Past Ntkfzoi-Zwpnzk-Sxdnzf Hx Patient Social History Tobacco Use?: Yes Tobacco type used: Cigarettes Smoking Status: Current Everyday Smoker Immunizations Up To Date Tetanus Booster (TDap): More than 5yrs First/Initial COVID19 Vaccinat: YES Second COVID19 Vaccination Levar: YES Third COVID19 Vaccination Date: YES Past Medical History Surgery/Hospitalization HX: CABG 2012, CAD,HTN, COPD, Bronchitis Surgeries: Yes CABG, Hysterectomy Respiratory: Yes (O2 4L/NC CONTINUOUS) COPD Currently Using CPAP: No Currently Using BIPAP: No Cardiac: Yes (CABG) Coronary Artery Disease, Hypertension Neurological: No Reproductive Disorders: No [employer]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 Heart Disease, COPD Physical Exam Vital Signs Vital Signs - First Documented Capillary Refill : Height, Weight, BMI Height: 4'11.00" Weight: 151lbs. 14.8oz. 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 Ack. Understanding Breath Sounds per Auscultation: Clear Airway Exam: Mouth opens >2 fingers, Neck Full Range of Motion Sedation Adminstration Time: 1311 Re-examination Time: 1400 Progress/Results/Core Measures Results/Orders Lab Results Laboratory Tests Test 11/12/22 04:24 11/12/22 04:40 Range/Units Influenza Type A (RT-PCR) Not Detected Not Detecte Influenza Type B (RT-PCR) Not Detected Not Detecte SARS-CoV-2 RNA (RT-PCR) Not Detected Not Detecte Group A Streptococcus Screen Not Detected NotDetected White Blood Count 10.2 4.3-11.0 10^3/uL Red Blood Count 3.89 3.80-5.11 10^6/uL Hemoglobin 11.3 L 11.5-16.0 g/dL Hematocrit 38 35-52 % Mean Corpuscular Volume 97 80-99 fL Mean Corpuscular Hemoglobin 29 25-34 pg Mean Corpuscular Hemoglobin Concent 30 L 32-36 g/dL Red Cell Distribution Width 13.1 10.0-14.5 % Platelet Count 199 130-400 10^3/uL Mean Platelet Volume 12.4 H 9.0-12.2 fL Immature Granulocyte % (Auto) 0 % Neutrophils (%) (Auto) 83 H 42-75 % Lymphocytes (%) (Auto) 11 L 12-44 % Monocytes (%) (Auto) 5 0-12 % Eosinophils (%) (Auto) 1 0-10 % Basophils (%) (Auto) 0 0-10 % Neutrophils # (Auto) 8.5 H 1.8-7.8 10^3/uL Lymphocytes # (Auto) 1.1 1.0-4.0 10^3/uL Monocytes # (Auto) 0.5 0.0-1.0 10^3/uL Eosinophils # (Auto) 0.1 0.0-0.3 10^3/uL Basophils # (Auto) 0.0 0.0-0.1 10^3/uL Immature Granulocyte # (Auto) 0.0 0.0-0.1 10^3/uL Prothrombin Time 12.8 12.2-14.7 SEC INR Comment 0.9 0.8-1.4 Activated Partial Thromboplast Time 33 24-35 SEC D-Dimer 1.15 H 0.00-0.49 UG/ML Sodium Level 135 135-145 MMOL/L Potassium Level 5.4 H 3.6-5.0 MMOL/L Chloride Level 101 98-107 MMOL/L Carbon Dioxide Level 22 21-32 MMOL/L Anion Gap 12 5-14 MMOL/L Blood Urea Nitrogen 42 H 7-18 MG/DL Creatinine 1.04 0.60-1.30 MG/DL Estimat Glomerular Filtration Rate 56 BUN/Creatinine Ratio 40 Glucose Level 126 H 70-105 MG/DL Calcium Level 13.4 *H 8.5-10.1 MG/DL Corrected Calcium 13.2 H 8.5-10.1 MG/DL Magnesium Level 1.1 *L 1.6-2.4 MG/DL Total Bilirubin 0.3 0.1-1.0 MG/DL Aspartate Amino Transf (AST/SGOT) 31 5-34 U/L Alanine Aminotransferase (ALT/SGPT) 17 0-55 U/L Alkaline Phosphatase 70 40-136 U/L Total Creatine Kinase 844 H 29-168 U/L Creatine Kinase MB 16.2 *H <6.6 NG/ML Myoglobin 174.0 H 10.0-92.0 NG/ML Troponin I 0.436 *H <0.028 NG/ML B-Type Natriuretic Peptide 2372.0 H <100.0 PG/ML Total Protein 7.4 6.4-8.2 GM/DL Albumin 4.2 3.2-4.5 GM/DL Triglycerides Level 55 <150 MG/DL Cholesterol Level 186 < 200 MG/DL LDL Cholesterol Direct 130 H 1-129 MG/DL VLDL Cholesterol 11 5-40 MG/DL HDL Cholesterol 52 40-60 MG/DL Amylase Level 80 25-125 U/L Lipase 22 8-78 U/L My Orders Orders - MAKSIM SABA DO Cbc With Automated Diff (11/12/22 04:18) Magnesium (11/12/22 04:18) Chest 1 View, Ap/Pa Only (11/12/22 04:18) Ekg Tracing (11/12/22 04:18) Comprehensive Metabolic Panel (11/12/22 04:18) Myoglobin Serum (11/12/22 04:18) Protime With Inr (11/12/22 04:18) Partial Thromboplastin Time (11/12/22 04:18) O2 (11/12/22 04:18) Monitor-Rhythm Ecg Trace Only (11/12/22 04:18) Ed Iv/Invasive Line Start (11/12/22 04:18) Creatine Kinase (11/12/22 04:18) Creatine Kinase Mb (11/12/22 04:18) Lipase (11/12/22 04:18) Amylase (11/12/22 04:18) Bnp Cheo (11/12/22 04:18) Fibrin Degradation Products (11/12/22 04:18) Troponin I Cheo (11/12/22 04:18) Nitroglycerin 0.4 Mg Btl 25's (Nitroglyc (11/12/22 04:30) Aspirin Chewable Tablet (Aspirin Chewabl (11/12/22 04:30) Rapid Strep A Screen (11/12/22 04:26) Covid 19 Inhouse Test (11/12/22 04:26) Influenza A And B By Pcr (11/12/22 04:26) Nitroglycerin Ointment (Nitroglycerin (11/12/22 04:45) Hydralazine Injection (Hydralazine Injec (11/12/22 05:15) Clonidine Tablet (Clonidine Tablet) (11/12/22 05:15) Magnesium 1 Gm/100 Ml Ivpb (Magnesium 1 (11/12/22 05:30) Furosemide Injection (Furosemide Injec (11/12/22 05:30) Enoxaparin Injection (Enoxaparin Injecti (11/12/22 05:30) Morphine Injection (Morphine Injection (11/12/22 05:45) Ed Admission (Communication) (11/12/22 05:40) Morphine Injection (Morphine Injection (11/12/22 05:46) Nitro Drip 62480 Mcg/D5w (Nitroglycerin (11/12/22 06:00) Magnesium 1 Gm/100 Ml Ivpb (Magnesium 1 (11/12/22 06:30) Magnesium 1 Gm/100 Ml Ivpb (Magnesium 1 (11/12/22 06:19) Medications Given in ED Current Medications Medications Dose Ordered Sig/Tamela Route Start Time Stop Time Status Last Admin Dose Admin Magnesium Sulfate/ Dextrose 100 ml @ 100 mls/hr ONCE ONCE IV 11/12/22 06:30 11/12/22 07:29 DC 11/12/22 06:20 100 MLS/HR Vital Signs/I&O 11/12/22 11/12/22 11/12/2223 04:18 04:18 04:18 06:15 Temp 36.4 Pulse 98 89 Resp 20 B/P (MAP) 224/112 (149) 161/53 Pulse Ox 93 93 O2 Delivery Nasal Cannula Nasal Cannula Nasal Cannula O2 Flow Rate 4.00 4.00 4.00 11/12/22 11/12/22 07:51 08:00 Temp 36.4 Pulse 79 Resp 16 B/P (MAP) 162/62 148/66 (93) Pulse Ox 93 O2 Delivery Nasal Cannula Nasal Cannula O2 Flow Rate 4.00 4.00 Progress Progress Note : Progress Note VITALS ON ARRIVAL: TEMP 36.4=97.6, HR 98, RR 20, BP 224/112, O2 SAT 93-97% ON 4L/NC GIVEN: -NITROPASTE--MINIMAL RELIEF OF PAIN -LASIX -HYDRALAZINE -LOVENOX -CLONIDINE -MAGNESIUM -MORPHINE -NITRO DRIP LABS: -CBC WITH HGB 11.3, OTHERWISE UNREMARKABLE -CMP NA 135, K 5.4, BUN 42, CR 1.04, GLU 126, CA 13.4/13.2 -CK 844, CK-MB 16.2, MYOGLOBIN 174 -TROPONIN 0.436 -BNP 1372 -MG 1.1 -AMYLASE/LIPASE NORMAL -PT/PTT/INR 12.8/33/0.9 -D-DIMER 1.15 -COVID/FLU NEGATIVE -STREP NEGATIVE EKG UNCHANGED FROM PREVIOUS CXR WITH CHF NO DETERIORATION IN PT'S CONDITION DURING ER STAY VERY POOR IV ACCESS REVIEWED PRIOR RECORDS INCLUDING ER VISITS, ADMITS/H&P'S/CONSULTS/DISCHARGE SUMMARIES, TESTS/PROCEDURES. DISCUSSED TEST RESULTS, NEED FOR ADMIT AND PT IS AGREEABLE TO PLAN Initial ECG Impression Date: Nov 12, 2022 Initial ECG Impression Time: 04:30 Initial ECG Rate: 95 Initial ECG Rhythm: Normal Sinus Initial ECG Intervals GA 160 QRS 102 QT/QTC 315/367 Initial ECG Comparisson: Unchanged Comment INTERPRETED BY ME Diagnostic Imaging Comments CXR--PENDING RADIOLOGIST REVIEW -CHF Reviewed: Reviewed by Me Departure Communication (Admissions) [id number]--SPOKE WITH DR. OSULLIVAN, HOSPITALIST, ACCEPTS PT FOR ADMIT. SHE WILL DO ADMIT ORDERS AND CONSULT CARDIOLOGY Impression Primary Impression: NSTEMI (non-ST elevated myocardial infarction) Additional Impressions: Chest pain Hypertensive urgency HX OF CAD WITH CABG O2 DEPENDENT COPD CHF (congestive heart failure) Hypomagnesemia Hypercalcemia Disposition: ADMITTED INPATIENT Condition: Stable Admissions Decision to Admit Reason: Admit from ER (General) Decision to Admit/Date: Nov 12, 2022 Time/Decision to Admit Time: 05:40 Departure-Patient Inst. Referrals: NO,LOCAL PHYSICIAN (PCP/Family) Primary Care Physician MAKSIM SABA DO Nov 12, 2022 04:32
[2022-11-12] MEDS ORDERED: NITROGLYCERIN 2% OINT 1 GM UNIT DOSE PACKET TOP ONE (04:45)
[2022-11-12 04:57] LABS: BASOPHILS % (AUTO) 0 % (0-10); EOSINOPHILS # (AUTO) 0.1 10^3/uL (0.0-0.3); EOSINOPHILS % (AUTO) 1 % (0-10); HEMATOCRIT 38 % (35-52); HEMOGLOBIN 11.3 g/dL (11.5-16.0); LYMPHOCYTES # (AUTO) 1.1 10^3/uL (1.0-4.0); LYMPHOCYTES % (AUTO) 11 % (12-44); MEAN CORPUSCULAR HEMOGLOBIN 29 pg (25-34); MEAN CORPUSCULAR HGB CONC 30 g/dL (32-36); MEAN CORPUSCULAR VOLUME 97 fL (80-99); MEAN PLATELET VOLUME 12.4 fL (9.0-12.2); MONOCYTES # (AUTO) 0.5 10^3/uL (0.0-1.0); MONOCYTES % (AUTO) 5 % (0-12); NEUTROPHILS # (AUTO) 8.5 10^3/uL (1.8-7.8); NEUTROPHILS % (AUTO) 83 % (42-75); PLATELET COUNT 199 10^3/uL (130-400); WHITE BLOOD COUNT 10.2 10^3/uL (4.3-11.0)
[2022-11-12 05:02] LABS: ALBUMIN 4.2 GM/DL (3.2-4.5); POTASSIUM 5.4 MMOL/L (3.6-5.0)
[2022-11-12 05:05] LABS: TOTAL PROTEIN 7.4 GM/DL (6.4-8.2)
[2022-11-12 05:06] LABS: BILIRUBIN,TOTAL 0.3 MG/DL (0.1-1.0)
[2022-11-12 05:08] LABS: CREATININE SERUM 1.04 MG/DL (0.60-1.30)
[2022-11-12 05:12] LABS: INR 0.9 (0.8-1.4); PROTHROMBIN TIME PATIENT 12.8 SEC (12.2-14.7)
[2022-11-12 05:15] LABS: CALCIUM 13.4 MG/DL (8.5-10.1); MAGNESIUM 1.1 MG/DL (1.6-2.4)
[2022-11-12] MEDS ORDERED: hydrALAZINE INJECTION 20 MG/ML VIAL IV ONE (05:15)
[2022-11-12 05:16] LABS: FIBRIN DEGRADATION PRODUCTS 1.15 UG/ML (0.00-0.49)
[2022-11-12 05:27] LABS: CREATINE KINASE MB 16.2 NG/ML (<6.6)
[2022-11-12] MEDS ORDERED: ENOXAPARIN 80 MG/0.8 ML SYRINGE SC ONE (05:30)
[2022-11-12] MEDS ORDERED: MAGNESIUM 1 GM/100 ML IVPB 100 ML IV ONE ×3 (05:30→06:30)
[2022-11-12] MEDS ORDERED: FUROSEMIDE INJECTION 40 MG/4 ML VIAL IVP ONE (05:30)
[2022-11-12] MEDS ORDERED: morphine INJ 10 MG/ML 1ML (SYR OR VIAL) IVP ONE (05:45)
[2022-11-12] MEDS ORDERED: morphine INJ 4 MG/ML 1 ML (VIAL/SYRINGE) ONE (05:46)
--- NOTE | 2022-11-12 05:47 | Diagnostic Imaging Report ---
INDICATION: Chest pain. Study compared 07/13/2022 FINDINGS: Focal density in the right base laterally has its superior component projecting over a posterior right rib segment measures approximately 2.4 x 1.7 cm. It is indeterminate between focal area of the nonspecific consolidation such as atelectasis or pneumonia versus a mass. The left lung is clear. The heart size within the upper limits of normal. No overt failure pattern or significant venous overdistention. Sternal wires midline and intact. No effusion, no pneumothorax. IMPRESSION: 1. Right lateral basilar focal density of uncertain etiology, mass could not be excluded. Either short-term follow-up versus consideration for CT chest recommended. 2. No other significant finding. Dictated by: Dictated on workstation # [id number]
[2022-11-12] MEDS ORDERED: NITRO DRIP 25000 MCG/D5W 250 ML IV SCH (06:00)
[2022-11-12] MEDS ORDERED: CALCIUM CARBONATE 500 MG CHEW TABLET PO PRN (09:00)
[2022-11-12] MEDS ORDERED: LACTULOSE SYRUP 10GM/15ML 30ML UDC PO PRN (09:00)
[2022-11-12] MEDS ORDERED: diphenhydrAMINE 25 MG TABLET PO PRN (09:00)
[2022-11-12] MEDS ORDERED: morphine INJ 4 MG/ML 1 ML (VIAL/SYRINGE) IV PRN (09:00)
[2022-11-12] MEDS: NITRO DRIP 25000 MCG/D5W 250 ML IV SCH (09:00)
[2022-11-12] MEDS ORDERED: ASPIRIN enteric coated 81MG TABLET PO SCH (09:00)
[2022-11-12] MEDS ORDERED: diphenhydrAMINE INJ 50 MG/ML VIAL IVP PRN (09:00)
[2022-11-12] MEDS ORDERED: PATIENT MAY USE OWN MEDS, ALL PO SCH (09:00)
[2022-11-12] MEDS ORDERED: ONDANSETRON INJECTION 4 MG/2 ML (SDV) IV PRN (09:00)
[2022-11-12] MEDS ORDERED: MELATONIN 3 MG TABLET PO PRN (09:00)
[2022-11-12] MEDS ORDERED: BISACODYL 10 MG SUPPOSITORY PR PRN (09:00)
[2022-11-12] MEDS ORDERED: NS IV 500 ML 500 ML IV PRN (09:00)
[2022-11-12] MEDS ORDERED: oxyCODONE IMMEDIATE RELEASE 5 MG TABLET PO PRN (09:00)
[2022-11-12] MEDS ORDERED: MILK OF MAGNESIA 400 MG/5 ML 30 ML UDC PO PRN (09:00)
[2022-11-12] MEDS ORDERED: LORazepam 0.5 MG TABLET PO PRN (09:00)
[2022-11-12] MEDS ORDERED: ACETAMINOPHEN 325 MG TABLET PO PRN (09:00)
[2022-11-12] MEDS ORDERED: ONDANSETRON 4 MG ORAL DISSOLVE TABLET PO PRN (09:00)
[2022-11-12] MEDS ORDERED: ANTACID SUSPENSION 30 ML UDC PO PRN (09:00)
[2022-11-12 09:23] LABS: CHOLESTEROL 186 MG/DL (< 200); HDL CHOLESTEROL 52 MG/DL (40-60); TRIGLYCERIDES 55 MG/DL (<150); VLDL CHOLESTEROL 11 MG/DL (5-40)
[2022-11-12 09:32] LABS: ABG BASE EXCESS 3.3 MMOL/L (-2.5-2.5); ABG OXYGEN SATURATION 56 % (94-100); ABG PCO2 65 MMHG (35-45); ABG TCO2 31.7 MMOL/L (21.0-31.0)
[2022-11-12 09:36] LABS: ALLENS TEST POSITIVE
[2022-11-12 09:37] LABS: ABG PH 7.28 (7.37-7.43)
[2022-11-12 09:38] LABS: ABG PO2 34 MMHG (79-93); INSPIRED O2 4 L; PATIENT TEMP 36.5; VENTILATOR NO
[2022-11-12 10:03] VITALS: BP 162/62
[2022-11-12] MEDS ORDERED: RT-Ipratropium/Albuterol NEB 3 ML VIAL INH PRN (10:30)
--- NOTE | 2022-11-12 10:33 | Tele-ICU Consult ---
History of Present Illness History of Present Illness Date Seen by Provider: Nov 12, 2022 Time Seen by Provider: 10:31 Date of Admission History of Present Illness (Tele-ICU Physician , consultation as per request of PCP Service provided via interactive audio and video telecomRevinate E-CARE system to a patient admitted to ICU bed in [facility]. Available chart/ vitals / labs / Images reviewed H&P is from ER notes Patient's information available about PMH, Shx, Fhx allergy reviewed inEMR. ROS as per chart and RN report Now in ICU, hemodynamically stable Video assessment done using teleICU camera, rest of exam as per RN Discussed with RN. Hospital course: (07/12) 76/F- HYPOXIC, COPD EXACERBATION, Pna, d/c hosp on wednesday 5-12 for same. (11/12) 77F Admitted for NSTEMI, hypercalcemia. HX COPD on 4L NC baseline still smokes. A/P Chest pain - on NTF gtt, mophine given in er - no chest pain - ECHO 06/2022 - cards consulted - AC as per cards , diana 60 bid strarted Respiratory acidosis - mild - mophine given in er - now AAO - will monitor off BIPAP and follow - h/o COPD - mop wheezing and good air movement as per ER exam - viral panel is negative - cont home meds HTN - on ntg gtt , PO meds to resume as per cards RLL opacity on cxr - was tx with ABX 06/2022 for this findings as PNA - CXr not changed now - ? mass vs residual scarring after RLL PNA ( lobar ) seen on CT 2015 - butch hyper Ca would do CT chest and compare to 06/2022 CT Hyperkalemia - mild , not any supplement - folow , received lasix with good UO Hypercalcemia Lines : periph , (Central Line Necessity Reviewed) Burnham: burnham OG: Nutrition: npo Analgesia: Anxiety/ delirium VTE Prophylaxis: diana 60 bid Stress Ulcer Prophylaxis: Plans in collaboration with bedside consultants and IM MDs. Discussed with RN to reach out if any questions or concerns A total of 25 minutes of critical care time was devoted to this patient today, required to treat and/or prevent further deterioration of critical care condition ( as above ) I am remotely monitoring this patient from another state. I am unable to do the bedside exam, and history/physical and pertinent information is taken from other notes in the computer and bedside staff. . Allergies and Home Medications Allergies Coded Allergies: amlodipine (Verified Allergy, Intermediate, Rash, 07/15/22) Sulfa (Sulfonamide Antibiotics) (Verified Allergy, Unknown, 07/09/22) Home Medications Albuterol Sulfate 8.5 Gm Hfa.aer.ad, 2 PUFF IH Q4H PRN for SHORTNESS OF BREATH, (Reported) Aspirin 81 Mg Tablet.dr, 81 MG PO DAILY, (Reported) Carvedilol 12.5 Mg Tablet, 12.5 MG PO BID WITH MEALS, (Reported) Cholecalciferol (Vitamin D3) 25 Mcg (1000 Unit) Tablet, 25 MCG PO DAILY, (Reported) Clonidine 0.2 Mg/24 Hour Patch.tdwk, 1 PATCH TD Q7D Prescribed by: MALIKA SCHUSTER on 07/15/22 1141 Clonidine HCl 0.1 Mg Tablet, 0.1 MG PO Q4H PRN for BP OVER 160, (Reported) Diazepam 5 Mg Tablet, 5 MG PO TID PRN for ANXIETY, (Reported) Famotidine 20 Mg Tablet, 20 MG PO BID PRN for HEARTBURN, (Reported) Ipratropium/Albuterol Sulfate 0.5 Mg-3 Mg (2.5 Mg Base)/3 Ml Ampul.neb, 3 ML IH Q4H PRN for SHORTNESS OF BREATH Prescribed by: SARAHI PLAZA on 07/10/22 1349 Lisinopril 40 Mg Tablet, 40 MG PO DAILY, (Reported) Meloxicam 15 Mg Tablet, 15 MG PO DAILY, (Reported) Prednisone 10 Mg Tab.ds.pk, 10 MG PO DAILY Take 6 tabs(60mg)daily,decrease by 1 tab(10MG)daily. Prescribed by: SARAHI PLAZA on 07/10/22 1349 Simvastatin 40 Mg Tablet, 40 MG PO HS, (Reported) Spironolactone 50 Mg Tablet, 50 MG PO DAILY Prescribed by: MALIKA SCHUSTER on 07/15/22 1141 Past Medical/Social/Family Hx Patient Social History Tobacco Use?: Yes Tobacco type used: Cigarettes Smoking Status: Current Everyday Smoker Immunizations Up To Date First/Initial COVID19 Vaccinat: YES Second COVID19 Vaccination Levar: YES Tetanus Booster (TDap): More Than 5 Years TB Skin Test: Negative Date of Pneumonia Vaccine: Jan 29, 2014 Current Status Primary Language: Cymro Preferred Spoken Language: Cymro Is interpretation needed?: No Past Medical History COPD, CAD, HTN, HLD, GERD, Anxiety/Depression PSH: CABG-2012, Hysterectomy Review of Systems Constitutional: other Focused Exam Possible Source: Other Height, Weight, BMI Height: 4'11.00" Weight: 151lbs. 14.8oz. 68.726686iz; 27.00 BMI Method:Stated Exam Exam Patient acknowledged, consented, and participated in this virtual visit which was conducted using real time audio/video Vital Signs Date Time Temp Pulse Resp B/P (MAP) Pulse Ox O2 Delivery O2 Flow Rate FiO2 11/12/22 10:03 36.4 79 93 11/12/22 10:00 67 13 167/75 (105) 100 Nasal Cannula 4.00 11/12/22 09:00 70 12 142/65 (90) 99 Nasal Cannula 4.00 11/12/22 08:19 85 11/12/22 08:00 148/66 (93) Nasal Cannula 4.00 11/12/22 07:51 36.4 79 16 162/62 93 Nasal Cannula 4.00 11/12/22 06:15 89 161/53 11/12/22 04:18 Nasal Cannula 4.00 11/12/22 04:18 93 Nasal Cannula 4.00 11/12/22 04:18 36.4 98 20 224/112 (149) 93 Nasal Cannula 4.00 I & O 11/12/22 06:59 Intake Total 100 ml Balance 100 ml Height & Weight Height: 4'11.00" Weight: 151lbs. 14.8oz. 68.636307cl; 27.00 BMI Method:Stated General Appearance: No Apparent Distress, WD/WN, Anxious, Other HEENT: PERRL/EOMI Neck: Normal Inspection Respiratory: Wheezing (MILD EXPIRATORY WHEEZING BILATERALLY), Other (APPEARS SLIGHTLY DYSPNEIC BUT PT DENIES FEELING SHORT OF BREATH) Cardiovascular: Regular Rate, Rhythm, No Edema, No JVD, No Murmur, Normal Peripheral Pulses Capillary Refill: Less Than 3 Seconds Extremity: Normal Capillary Refill, Normal Inspection, Normal Range of Motion, Non Tender, No Calf Tenderness, No Pedal Edema Neurologic/Psychiatric: Alert, Oriented x3, No Motor/Sensory Deficits, 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
[2022-11-12 10:53] LABS: CLARITY,URINE CLEAR; COLOR,URINE YELLOW; GLUCOSE, URINE (UA) NEGATIVE (NEGATIVE); KETONES,URINE NEGATIVE (NEGATIVE); PROTEIN,URINE NEGATIVE (NEGATIVE)
[2022-11-12 10:54] LABS: BACTERIA,URINE MODERATE /HPF; BILIRUBIN,URINE NEGATIVE (NEGATIVE); LEUKOCYTE ESTERASE ,URINE NEGATIVE (NEGATIVE); NITRITE,URINE POSITIVE (NEGATIVE); RBC,URINE RARE /HPF
--- NOTE | 2022-11-12 11:56 | History & Physical ---
ERNIE DIAZ 11/12/22 1156: History of Present Illness History of Present Illness Reason for visit/HPI Poor historian, HPI is from patient and ED records. Patient is a 77-year-old female with a history of oxygen-dependent COPD (4L [place] HTN, CAD, and CABG in 2011 who presented to the ED on 11/12 via EMS with CC of chest pain. She had been having this pain approximately 8 hours prior to admission. She had called EMS at 20:00 on 11/11, refused transport because she had taken some tums and thought they would help. She had taken 1 aspirin at home, states it had helped slightly, was given another by EMS, reports it also helped slightly. She had a clonidine patch in her clothing, not attached to her skin. Initial BP in the ED measured at 224/112. Troponin was elevated at 0.436, CK-MB measured at 16.2, BNP measured at 2372.0. EKG showed sinus rhythm, no ST changes. Found to have hypomagnesemia at 1.1 and hypercalcemia at 13.4, does not think she has been worked up for hypercalcemia. CXR showed Right lateral basilar focal density of uncertain etiology, mass could not be excluded. While in the ED, she was given clonidine, hydralazine, lasix, nitro paste, and started on a nitro drip. Her pain improved after receiving morphine. BP in 170s systolic during exam today. Patient reports she is feeling better this morning, no chest pain currently. She has maintained good O2 sats on 4L via [place] which is what she uses at home, no SOB. Date of Admission Nov 12, 2022 at 08:02 Date Seen by a Provider: Nov 12, 2022 Time Seen by a Provider: 10:45 I consulted on this patient on 11/12/22 11:51 Attending Physician No,Local Physician Admitting Physician Admitting Physician: Adriana Osullivan DO Attending Physician: Adriana Osullivan DO Consult Allergies and Home Medications Allergies Coded Allergies: amlodipine (Verified Allergy, Intermediate, Rash, 07/15/22) Sulfa (Sulfonamide Antibiotics) (Verified Allergy, Unknown, 07/09/22) Patient Home Medication List Albuterol Sulfate (Ventolin Hfa) 8.5 Gm Hfa.aer.ad, 2 PUFF IH Q4H PRN for SHORTNESS OF BREATH, (Reported) Entered as Reported by: STACIE VITAL on 04/29/15 1129 Aspirin (Aspirin EC) 81 Mg Tablet.dr, 81 MG PO DAILY, (Reported) Entered as Reported by: MAC RENAE on 02/13/22 1658 Carvedilol (Carvedilol) 12.5 Mg Tablet, 12.5 MG PO BID WITH MEALS, (Reported) Entered as Reported by: MAC RENAE on 07/10/22 0815 Cholecalciferol (Vitamin D3) (Vitamin D3) 25 Mcg (1000 Unit) Tablet, 25 MCG PO DAILY, (Reported) Entered as Reported by: MAC RENAE on 02/13/22 165 Clonidine (Clonidine TTS 2 Patch) 0.2 Mg/24 Hour Patch.tdwk, 1 PATCH TD Q7D Prescribed by: MALIKA SCHUSTER on 07/15/22 1141 Clonidine HCl (Clonidine HCl) 0.1 Mg Tablet, 0.1 MG PO Q4H PRN for BP OVER 160, (Reported) Entered as Reported by: MAC RENAE on 07/10/22 0815 Diazepam (Diazepam) 5 Mg Tablet, 5 MG PO TID PRN for ANXIETY, (Reported) Entered as Reported by: MAC RENAE on 02/13/22 165 Famotidine (Famotidine) 20 Mg Tablet, 20 MG PO BID PRN for HEARTBURN, (Reported) Entered as Reported by: MAC RENAE on 07/10/22 0816 Ipratropium/Albuterol Sulfate (Iprat-Albut 0.5-3(2.5) mg/3 ml) 0.5 Mg-3 Mg (2.5 Mg Base)/3 Ml Ampul.neb, 3 ML IH Q4H PRN for SHORTNESS OF BREATH Prescribed by: SARAHI PLAZA on 07/10/22 1349 Lisinopril (Lisinopril) 40 Mg Tablet, 40 MG PO DAILY, (Reported) Entered as Reported by: MAC RENAE on 02/13/22 165 Meloxicam (Meloxicam) 15 Mg Tablet, 15 MG PO DAILY, (Reported) Entered as Reported by: MAC RENAE on 02/13/22 165 Prednisone (Prednisone) 10 Mg Tab.ds.pk, 10 MG PO DAILY Prescribed by: SARAHI PLAZA on 07/10/22 1349 Simvastatin (Simvastatin) 40 Mg Tablet, 40 MG PO HS, (Reported) Entered as Reported by: MAC RENAE on 07/10/22 0815 Spironolactone (Spironolactone) 50 Mg Tablet, 50 MG PO DAILY Prescribed by: MALIKA SCHUSTER on 07/15/22 1141 Past Vqutqdc-Opwclp-Driuwh Hx Patient Social History Tobacco Use?: Yes Tobacco type used: Cigarettes Smoking Status: Current Everyday Smoker Immunizations Up To Date Date of Influenza Vaccine: Feb 05, 2015 First/Initial COVID19 Vaccinat: YES Second COVID19 Vaccination Levar: YES Tetanus Booster (TDap): More Than 5 Years Date of Pneumonia Vaccine: Jan 29, 2014 Current Status Primary Language: Malaysian Preferred Spoken Language: Malaysian Is interpretation needed?: No Past Medical History Surgeries: CABG, Hysterectomy COPD Currently Using CPAP: No Currently Using BIPAP: No Coronary Artery Disease, Hypertension [employer] History: Hysterectomy Sexually Transmitted Disease: No HIV/AIDS: No Bladder Infection, UTI-Chronic Gastroesophageal Reflux Did You Recieve Any Treatments: No Sleep Difficulties, Anxiety, Suicide Attempts, Depression Adverse Reaction/Blood Tranf: No COPD, CAD, HTN, HLD, GERD, Anxiety/Depression PSH: CABG-2012, Hysterectomy Family Medical History Patient reports no known family medical history. Heart Disease, COPD Review of Systems Constitutional: No chills, No fever EENTM: No hearing loss, No blurred vision Respiratory: No dyspnea on exertion, No short of breath Cardiovascular: chest pain (no pain currently), Hx of Intervention (CABG in 2011) Gastrointestinal: No nausea, No vomiting Genitourinary: No dysuria, No hematuria Musculoskeletal: No back pain, No neck pain Skin: No change in color, No change in hair/nails Psychiatric/Neurological: Denies Numbness, Denies Weakness Physical Exam Vital Signs Vital Signs - First Documented Capillary Refill : Less Than 3 Seconds Height, Weight, BMI Height: 4'11.00" Weight: 151lbs. 14.8oz. [id number]; 27.00 BMI Method:Stated General Appearance: No Apparent Distress, WD/WN HEENT: PERRL/EOMI Neck: Non Tender, Supple Respiratory: Chest Non Tender, No Respiratory Distress Cardiovascular: Regular Rate, Rhythm, Normal Peripheral Pulses Gastrointestinal: Non Tender, Soft Rectal: Deferred Back: No Vertebral Tenderness Extremity: Normal Capillary Refill, Non Tender Neurologic/Psychiatric: Alert, Oriented x3 Skin: Normal Color, Warm/Dry Lymphatic: No Adenopathy Assessment/Plan Assessment and Plan NSTEMI: Cardiology consulted, continue ASA, monitoring with telemetry, currently on nitro drip HTN urgency: cardiology consulted, appreciate recs, BP improved from admission, restart home BP meds when able Hx CAD w/ CABG: CABG done in 2011 COPD: good o2 sats on 4L [place] no SOB, continue nebs Hypercalcemia: obtain PTH, spot urine calcium, ionized calcium, vitamin D levels Angina: none currently, nitro PRN Hypomagnesemia: started on Mg replacement, continue to monitor, replace as needed HLD: resume home statin GERD: currently asymptomatic, antacids as needed Clinical Quality Measures AMI/AHF: ASA po Prior to arrival: Yes ADRIANA OSULLIVAN DO 11/13/22 0501: History of Present Illness History of Present Illness Reason for visit/HPI Chief complaint: Shortness of breath with chest pain HPI: This is a 77-year-old female clinic patient of [facility] in [place] who presented to the ER with shortness of breath and chest pain. Elevated troponin prompted cardiology consult. Severe COPD requires 4 L of oxygen on at all times. I did speak with cardiology who will see her in consultation. Allergies and Home Medications Allergies Coded Allergies: amlodipine (Verified Allergy, Intermediate, Rash, 07/15/22) Sulfa (Sulfonamide Antibiotics) (Verified Allergy, Unknown, 07/09/22) Patient Home Medication List Home Medication List Reviewed: Yes Albuterol Sulfate (Ventolin Hfa) 8.5 Gm Hfa.aer.ad, 2 PUFF IH Q4H PRN for SHORTNESS OF BREATH, (Reported) Entered as Reported by: STACIE VITAL on 04/29/15 1129 Aspirin (Aspirin EC) 81 Mg Tablet.dr, 81 MG PO DAILY, (Reported) Entered as Reported by: MAC RENAE on 02/13/22 1658 Carvedilol (Carvedilol) 12.5 Mg Tablet, 12.5 MG PO BID WITH MEALS, (Reported) Entered as Reported by: MAC RENAE on 07/10/22 0815 Cholecalciferol (Vitamin D3) (Vitamin D3) 25 Mcg (1000 Unit) Tablet, 25 MCG PO DAILY, (Reported) Entered as Reported by: MAC RENAE on 02/13/22 165 Clonidine (Clonidine TTS 2 Patch) 0.2 Mg/24 Hour Patch.tdwk, 1 PATCH TD Q7D Prescribed by: MALIKA SCHUSTER on 07/15/22 1141 Clonidine HCl (Clonidine HCl) 0.1 Mg Tablet, 0.1 MG PO Q4H PRN for BP OVER 160, (Reported) Entered as Reported by: MAC RENAE on 07/10/22 08 Diazepam (Diazepam) 5 Mg Tablet, 5 MG PO TID PRN for ANXIETY, (Reported) Entered as Reported by: MAC RENAE on 02/13/221656 Famotidine (Famotidine) 20 Mg Tablet, 20 MG PO BID PRN for HEARTBURN, (Reported) Entered as Reported by: MAC RENAE on 07/10/22 08 Ipratropium/Albuterol Sulfate (Iprat-Albut 0.5-3(2.5) mg/3 ml) 0.5 Mg-3 Mg (2.5 Mg Base)/3 Ml Ampul.neb, 3 ML IH Q4H PRN for SHORTNESS OF BREATH Prescribed by: SARAHI PLAZA on 07/10/22 134 Lisinopril (Lisinopril) 40 Mg Tablet, 40 MG PO DAILY, (Reported) Entered as Reported by: MAC RENAE on 02/13/221656 Meloxicam (Meloxicam) 15 Mg Tablet, 15 MG PO DAILY, (Reported) Entered as Reported by: MAC RENAE on 02/13/221656 Prednisone (Prednisone) 10 Mg Tab.ds.pk, 10 MG PO DAILY Prescribed by: SARAHI PLAZA on 07/10/22 134 Simvastatin (Simvastatin) 40 Mg Tablet, 40 MG PO HS, (Reported) Entered as Reported by: MAC RENAE on 07/10/22 0815 Spironolactone (Spironolactone) 50 Mg Tablet, 50 MG PO DAILY Prescribed by: MALIKA SCHUSTER on 07/15/22 1141 Past Rmxumci-Gctkgs-Svvtes Hx Patient Social History Marrital Status: single Employed/Student: retired Smoking Status: Former Smoker Past Medical History Surgeries: CABG COPD Coronary Artery Disease, High Cholesterol, Hypertension Family Medical History Patient reports no known family medical history. Review of Systems Constitutional: see HPI Respiratory: dyspnea on exertion, short of breath Cardiovascular: chest pain (no pain currently) Physical Exam General Appearance: WD/WN, Anxious, Chronically ill, Mild Distress Eyes: Bilateral Eye Normal Inspection, Bilateral Eye PERRL, Bilateral Eye EOMI HEENT: PERRL/EOMI, Normal ENT Inspection, Pharynx Normal Neck: Full Range of Motion, Normal Inspection, Non Tender, Supple, Carotid Bru it Respiratory: Chest Non Tender, Lungs Clear, No Accessory Muscle Use, No Respiratory Distress, Decreased Breath Sounds Cardiovascular: Regular Rate, Rhythm, No Edema, No Gallop, No JVD, No Murmur, Normal Peripheral Pulses Gastrointestinal: Normal Bowel Sounds, No Organomegaly, No Pulsatile Mass, Non Tender, Soft Back: Normal Inspection, No CVA Tenderness, No Vertebral Tenderness Extremity: Normal Capillary Refill, Normal Inspection, Normal Range of Motion, Non Tender, No Calf Tenderness, No Pedal Edema Neurologic/Psychiatric: Alert, Oriented x3, No Motor/Sensory Deficits, Normal Mood/Affect Skin: Normal Color, Warm/Dry Lymphatic: No Adenopathy Assessment/Plan Assessment and Plan Assessment: NSTEMI Hypertensive urgency CAD previous bypass Severe COPD 4 L oxygen dependent continuously Plan: Cardiology consult Echo Lovenox and aspirin Problems: (1) Chest pain Status: Acute (2) Hypertensive urgency Status: Acute (3) NSTEMI (non-ST elevated myocardial infarction) Admission Diagnosis Admission Status: Inpatient Order (span 2 midnights) Reason for Inpatient Admission: NSTEMI Supervisory-Addendum Brief Verification & Attestation Participated in pt care: history, MDM, physical Personally performed: exam, history, MDM, supervision of care Care discussed with: Medical Student Procedures: n/a Results interpretation: Verified all documentation Verification and Attestation of Medical Student E/M Service A medical student performed and documented this service in my presence. I reviewed and verified all information documented by the medical student and made modifications to such information, when appropriate. I personally performed the physical exam and medical decision making. Adriana Osullivan, Nov 13, 2022,05:00 ERNIE DIAZ Nov 12, 2022 11:56 ADRIANA OSULLIVAN DO Nov 13, 2022 05:01
--- NOTE | 2022-11-12 12:41 | Consultation-Cardiology ---
HPI-Cardiology Cardiology Consultation: Date of Consultation 11/12/22 Time Seen by a Provider: 11:30 Date of Admission Attending Physician Anum,Local Physician Admitting Physician Admitting Physician: Adriana Montoya DO Attending Physician: Adriana Montoya DO Consulting Physician KRZYSZTOF RESENDEZ MD HPI: Patient is a 77-year-old female with a history of CAD status post two-vessel CABG in 2011, COPD on 4 L home O2, tobacco abuse (last smoked 2 weeks ago), hypertension, hyperlipidemia, who presents for evaluation of chest discomfort and shortness of breath. Patient states that back in 2011 prior to her CABG she experienced dizziness and chest discomfort, substernal. She notes that her discomfort that she experienced on the night prior to admission was very similar. Patient reports experiencing approximately 8 hours of chest discomfort. She called EMS and initially declined going in after having taken a Tums. When she noted that the Tums was not working for her, she called back and asked EMS to bring her in for evaluation. She had taken 1 nitroglycerin tab while experiencing the chest discomfort and noted that it provided mild relief but her symptoms recurred. She has not had to increase her home oxygen. In the emergency room, she received nitroglycerin drip and Lasix. She reports no further chest discomfort. BNP is elevated at 20 372. Troponin is elevated at 0.436. Her first ABG returned at 7.2 , and it is unclear as to whether or not this was a venous sample. Calcium is elevated at 13.2. Creatinine is 1.0 with a potassium of 5.4. She was also found to have a positive urinalysis with moderate bacteria and and positive nitrites. Chest x-ray was performed and returned concerning for right focal density questionable mass. Radiology recommended further evaluation with CT scanning She describes the discomfort as substernal chest pressure/heaviness sensation that was intermittent over the course of 8 hours prior to coming into the emergency room for evaluation. Review of Systems-Cardiology Review of Systems Other comments All systems reviewed and negative except for what has been described in HPI All Other Systems Reviewed Negative Unless Noted: Yes PQI-Ybzzpm-Xdmart Hx Patient Social History Smoking Status: Current Everyday Smoker Tobacco type used: Cigarettes (Last smoked approximately 2 weeks ago. 1 pack /day for approximately 61 years.) Immunizations Up To Date Tetanus Booster (TDap): More than 5yrs Date of Pneumonia Vaccine: Jan 29, 2014 Date of Influenza Vaccine: Feb 05, 2015 Past Medical History PMH As described under Assessment. Family Medical History Family Medical History: Mother with CAD Father with CAD Family History: Patient reports no known family medical history. Allergies and Home Medications Allergies Coded Allergies: amlodipine (Verified Allergy, Intermediate, Rash, 07/15/22) Sulfa (Sulfonamide Antibiotics) (Verified Allergy, Unknown, 07/09/22) Patient Home Medication List Home Medication List Reviewed: Yes Albuterol Sulfate (Ventolin Hfa) 8.5 Gm Hfa.aer.ad, 2 PUFF IH Q4H PRN for SHORTNESS OF BREATH, (Reported) Entered as Reported by: STACIE VITAL on 04/29/15 1129 Aspirin (Aspirin EC) 81 Mg Tablet.dr, 81 MG PO DAILY, (Reported) Entered as Reported by: MAC RENAE on 02/13/22 1658 Carvedilol (Carvedilol) 12.5 Mg Tablet, 12.5 MG PO BID WITH MEALS, (Reported) Entered as Reported by: MAC RENAE on 07/10/22 0815 Cholecalciferol (Vitamin D3) (Vitamin D3) 25 Mcg (1000 Unit) Tablet, 25 MCG PO DAILY, (Reported) Entered as Reported by: MAC RENAE on 02/13/22 1657 Clonidine (Clonidine TTS 2 Patch) 0.2 Mg/24 Hour Patch.tdwk, 1 PATCH TD Q7D Prescribed by: MALIKA SCHUSTER on 07/15/22 1141 Clonidine HCl (Clonidine HCl) 0.1 Mg Tablet, 0.1 MG PO Q4H PRN for BP OVER 160, (Reported) Entered as Reported by: MAC RENAE on 07/10/22 0815 Diazepam (Diazepam) 5 Mg Tablet, 5 MG PO TID PRN for ANXIETY, (Reported) Entered as Reported by: MAC RENAE on 02/13/22 1657 Famotidine (Famotidine) 20 Mg Tablet, 20 MG PO BID PRN for HEARTBURN, (Reported) Entered as Reported by: MAC RENAE on 07/10/22 0816 Ipratropium/Albuterol Sulfate (Iprat-Albut 0.5-3(2.5) mg/3 ml) 0.5 Mg-3 Mg (2.5 Mg Base)/3 Ml Ampul.neb, 3 ML IH Q4H PRN for SHORTNESS OF BREATH Prescribed by: SARAHI PLAZA on 07/10/22 1349 Lisinopril (Lisinopril) 40 Mg Tablet, 40 MG PO DAILY, (Reported) Entered as Reported by: MAC RENAE on 02/13/22 1657 Meloxicam (Meloxicam) 15 Mg Tablet, 15 MG PO DAILY, (Reported) Entered as Reported by: MAC RENAE on 02/13/22 1657 Prednisone (Prednisone) 10 Mg Tab.ds.pk, 10 MG PO DAILY Prescribed by: SARAHI PLAZA on 07/10/22 1349 Simvastatin (Simvastatin) 40 Mg Tablet, 40 MG PO HS, (Reported) Entered as Reported by: MAC RENAE on 07/10/22 0815 Spironolactone (Spironolactone) 50 Mg Tablet, 50 MG PO DAILY Prescribed by: MALIKA SCHUSTER on 07/15/22 1141 Physical Exam-Cardiology Physical Exam Vital Signs/I&O 11/12/22 11/12/22 11/12/22 11/12/22 04:18 04:18 04:18 06:15 Temp 36.4 Pulse 98 89 Resp 20 B/P (MAP) 224/112 (149) 161/53 Pulse Ox 93 93 O2 Delivery Nasal Cannula Nasal Cannula Nasal Cannula O2 Flow Rate 4.00 4.00 4.00 11/12/22 11/12/22 11/12/22 11/12/22 07:51 08:00 08:19 09:00 Temp 36.4 Pulse 79 85 70 Resp 16 12 B/P (MAP) 162/62 148/66 (93) 142/65 (90) Pulse Ox 93 99 O2 Delivery Nasal Cannula Nasal Cannula Nasal Cannula O2 Flow Rate 4.00 4.00 4.00 11/12/22 11/12/22 10:00 10:03 Temp 36.4 Pulse 67 79 Resp 13 B/P (MAP) 167/75 (105) Pulse Ox 100 93 O2 Delivery Nasal Cannula O2 Flow Rate 4.00 Capillary Refill : Less Than 3 Seconds Other comments Gen: NAD, resting comfortably; thin and debilitated Neck: No thyromegaly, JVD difficult to appreciate Lungs: Diminished breath sounds in bilateral lung [place], rales in bilateral bases. No wheezing or rhonchi appreciated CV: nl s1/s2; no murmurs gallops or rubs. Regular rate and rhythm Abd: soft NT,ND; no hepatosplenomegaly; positive bowel sounds Ext: 1-2+ right femoral pulse, no cyanosis clubbing or edema, warm and well- perfused Data Review Labs Laboratory Tests 11/12/22 04:24: Influenza Type A (RT-PCR) Not Detected, Influenza Type B (RT-PCR) Not Detected, SARS-CoV-2 RNA (RT-PCR) Not Detected, Group A Streptococcus Screen Not Detected 11/12/22 04:40: White Blood Count 10.2, Red Blood Count 3.89, Hemoglobin 11.3L, Hematocrit 38, Mean Corpuscular Volume 97, Mean Corpuscular Hemoglobin 29, Mean Corpuscular Hemoglobin Concent 30L, Red Cell Distribution Width 13.1, Platelet Count 199, Mean Platelet Volume 12.4H, Immature Granulocyte % (Auto) 0, Neutrophils (%) ( Auto) 83H, Lymphocytes (%) (Auto) 11L, Monocytes (%) (Auto) 5, Eosinophils (%) (Auto) 1, Basophils (%) (Auto) 0, Neutrophils # (Auto) 8.5H, Lymphocytes # (Auto) 1.1, Monocytes # (Auto) 0.5, Eosinophils # (Auto) 0.1, Basophils # (Auto) 0.0, Immature Granulocyte # (Auto) 0.0, Prothrombin Time 12.8, INR Comment 0.9, Activated Partial Thromboplast Time 33, D-Dimer 1.15H, Sodium Level 135, Potassium Level 5.4H, Chloride Level 101, Carbon Dioxide Level 22, Anion Gap 12, Blood Urea Nitrogen 42H, Creatinine 1.04, Estimat Glomerular Filtration Rate 56, BUN/Creatinine Ratio 40, Glucose Level 126H, Calcium Level 13.4*H, Corrected Calcium 13.2H, Magnesium Level 1.1*L, Total Bilirubin 0.3, Aspartate Amino Transf (AST/SGOT) 31, Alanine Aminotransferase (ALT/SGPT) 17, Alkaline Phosphatase 70, Total Creatine Kinase 844H, Creatine Kinase MB 16.2*H, Myoglobin 174.0H, Troponin I 0.436*H, B-Type Natriuretic Peptide 2372.0H, Total Protein 7.4, Albumin 4.2, Triglycerides Level 55, Cholesterol Level 186, LDL Cholesterol Direct 130H, VLDL Cholesterol 11, HDL Cholesterol 52, Amylase Level 80, Lipase 22 11/12/22 08:40: Urine Color YELLOW, Urine Clarity CLEAR, Urine pH 5.0, Urine Specific [place] 1.010L, Urine Protein NEGATIVE, Urine Glucose (UA) NEGATIVE, Urine Ketones NEGATIVE, Urine Nitrite POSITIVEH, Urine Bilirubin NEGATIVE, Urine Urobilinogen 0.2, Urine Leukocyte Esterase NEGATIVE, Urine RBC (Auto) NEGATIVE, Urine RBC RARE, Urine WBC NONE, Urine Crystals NONE, Urine Bacteria MODERATEH, Urine Casts NONE, Urine Mucus NEGATIVE, Urine Culture Indicated YES 11/12/22 09:20: Blood Gas Puncture Site RIGHT RADIAL, Blood Gas Patient Temperature 36.5, Arterial Blood pH 7.28*L, Arterial Blood Partial Pressure CO2 65H, Arterial Blood Partial Pressure O2 34*L, Arterial Blood HCO3 30H, Arterial Blood Total CO2 31.7H, Arterial Blood Oxygen Saturation 56L, Arterial Blood Base Excess 3.3H , Mundo Test POSITIVE, Blood Gas Ventilator Setting NO, Blood Gas Inspired Oxygen 4 L A/P-Cardiology Assessment/Admission Diagnosis 77-year-old female with a history of CAD status post two-vessel CABG in 2011, COPD on 4 L home O2, tobacco abuse (last smoked 2 weeks ago), hypertension, hyperlipidemia, who presents for evaluation of chest discomfort and shortness of breath. ##CAD status post CABG: Continue aspirin. Discontinue simvastatin and t ransition to Crestor in keeping with current guidelines. Restart Coreg. Hold on lisinopril and Aldactone for now given potassium of 5.4. We will start her on nifedipine 30 mg p.o. twice daily. Aware of amlodipine rash allergy. Patient will be kept n.p.o. after midnight for potential cath pending CT results. No further chest pain. On nitroglycerin drip at 2.5 mcgs per minute ##Hyperlipidemia: Transition to Crestor as noted above. Check fasting lipid panel. ##COPD on 4 L home O2: Patient states that she stopped smoking, her last cigarette was 2 weeks ago. She is on 4 L home O2 and is currently on 4 L here in the hospital. No increase in her oxygen requirement. ##Elevated BNP: BNP of 2372. Continue with Lasix for now. Rales in bilateral bases on exam. Continue with Lasix 40 mg IV twice daily. Echocardiogram resting. ##Hypertension: Blood pressures 140s to 180s. Restart Coreg. Start nifedipine as noted above. Continue to monitor. Also written for clonidine as needed. ##Hypercalcemia: Unclear etiology. Calcium of 13.2. Potential mass noted on chest x-ray. My preference at this point time is to evaluate for any potential lung pathology first. If in fact there is a mass, this would require biopsy; and if the patient has been recently stented on aspirin and Plavix, we would have to delay the biopsy. I would prefer to evaluate lung pathology first. As such, we will order chest CT to evaluate for potential mass and rule out pulmonary embolus. ##Hypoxemia: ABG sample may potentially be a venous sample. Unclear. Would like to exclude pulmonary embolus particular in light of D-dimer. ##Hypomagnesemia: Magnesium of 1.1. Magnesium supplementation as you are doing. Clinical Quality Measures AMI/AHF: ASA po Prior to arrival: Yes KRZYSZTOF RESENDEZ MD Nov 12, 2022 12:41
[2022-11-12] MEDS ORDERED: IOHEXOL 350 MG/ML 100 ML (OMNIPAQUE 350) VIAL IV ONE (13:15)
[2022-11-12] MEDS ORDERED: HOLD METFORMIN - RECEIVED CONTRAST 20 ML VIAL IV SCH (13:15)
[2022-11-12] MEDS ORDERED: NS 100 ML (IVPB) BAG IV ONE (13:15)
--- NOTE | 2022-11-12 14:17 | Diagnostic Imaging Report ---
TECHNIQUE: CTA of the chest was performed. 3D reformats were obtained and reviewed. Dose-reduction techniques were utilized. REASON FOR EXAM: Shortness of breath. Follow-up right-sided infiltrates. COMPARISON: 07/10/2022. FINDINGS: No evidence of pulmonary emboli to the subsegmental pulmonary arteries. The heart size is enlarged with post-CABG changes. No evidence of pericardial effusion. There is dilation of the main pulmonary artery trunk measuring 3.4 cm in diameter. Calcified aortic and coronary atherosclerotic plaque is seen without aneurysm. No lymphadenopathy in the chest. Similar opacities are seen in the mid and lower right lung. No suspicious pulmonary nodules. No central endobronchial obstructing lesions. No pleural effusion or pneumothorax. No acute osseous abnormalities in the chest. The upper abdomen is unremarkable. IMPRESSION: 1. No evidence of pulmonary emboli of the subsegmental pulmonary arteries. 2. Cardiomegaly with dilation of the main pulmonary artery trunk. Findings can be seen with pulmonary hypertension and correlation with PFTs is recommended. 3. Opacities in the mid and lower right lung, similar to the prior exam. Findings may represent scarring/atelectasis. No new focal consolidations are seen. Dictated by: Dictated on workstation # [id number]
[2022-11-12] MEDS: RT-Ipratropium/Albuterol NEB 3 ML VIAL INH SCH ×3 (14:51→22:49)
[2022-11-12] MEDS: NIFEdipine Extended Release 30 MG TABLET PO SCH ×2 (14:53→20:39)
[2022-11-12] MEDS: carvediloL 12.5 MG TABLET PO SCH ×2 (14:53→20:39)
[2022-11-12] MEDS ORDERED: ENOXAPARIN 60 MG/0.6 ML SYRINGE SC SCH (18:00)
[2022-11-12] MEDS: MAGNESIUM 1 GM/100 ML IVPB 100 ML IV SCH ×4 (18:33→21:59)
[2022-11-12] MEDS: FUROSEMIDE INJECTION 40 MG/4 ML VIAL IV SCH (18:33)
[2022-11-12] MEDS: SENNOSIDES 8.6 MG TABLET PO SCH (20:08)
[2022-11-12] MEDS: DOCUSATE SODIUM 100 MG CAPSULE PO SCH (20:08)
[2022-11-12] MEDS ORDERED: ROSUVASTATIN 20 MG TABLET PO SCH (21:00)
[2022-11-13] MEDS: RT-Ipratropium/Albuterol NEB 3 ML VIAL INH SCH ×4 (02:32→14:32)
[2022-11-13 04:26] LABS: BASOPHILS # (AUTO) 0.1 10^3/uL (0.0-0.1); BASOPHILS % (AUTO) 1 % (0-10); EOSINOPHILS # (AUTO) 0.1 10^3/uL (0.0-0.3); EOSINOPHILS % (AUTO) 1 % (0-10); HEMATOCRIT 36 % (35-52); HEMOGLOBIN 11.1 g/dL (11.5-16.0); LYMPHOCYTES # (AUTO) 1.5 10^3/uL (1.0-4.0); LYMPHOCYTES % (AUTO) 16 % (12-44); MEAN CORPUSCULAR HEMOGLOBIN 29 pg (25-34); MEAN CORPUSCULAR HGB CONC 31 g/dL (32-36); MEAN CORPUSCULAR VOLUME 94 fL (80-99); MEAN PLATELET VOLUME 12.2 fL (9.0-12.2); MONOCYTES # (AUTO) 1.1 10^3/uL (0.0-1.0); MONOCYTES % (AUTO) 12 % (0-12); NEUTROPHILS # (AUTO) 6.4 10^3/uL (1.8-7.8); NEUTROPHILS % (AUTO) 70 % (42-75); PLATELET COUNT 201 10^3/uL (130-400); WHITE BLOOD COUNT 9.1 10^3/uL (4.3-11.0)
[2022-11-13 04:33] LABS: ALBUMIN 3.8 GM/DL (3.2-4.5); POTASSIUM 4.9 MMOL/L (3.6-5.0)
[2022-11-13 04:34] LABS: CALCIUM 12.1 MG/DL (8.5-10.1)
[2022-11-13 04:36] LABS: TOTAL PROTEIN 6.8 GM/DL (6.4-8.2)
[2022-11-13 04:37] LABS: BILIRUBIN,TOTAL 0.3 MG/DL (0.1-1.0)
[2022-11-13 04:39] LABS: CREATININE SERUM 1.53 MG/DL (0.60-1.30); PHOSPHORUS 4.1 MG/DL (2.3-4.7)
[2022-11-13 04:42] LABS: MAGNESIUM 2.6 MG/DL (1.6-2.4)
[2022-11-13] MEDS ORDERED: POTASSIUM CL 10MEQ/50ML IVPB 50 ML IV SCH (06:00)
[2022-11-13] MEDS ORDERED: MAGNESIUM 1 GM/100 ML IVPB 100 ML IV SCH (06:00)
[2022-11-13] MEDS ORDERED: POTASSIUM CHLORIDE 20 MEQ TABLET PO SCH (06:00)
[2022-11-13] MEDS: FUROSEMIDE INJECTION 40 MG/4 ML VIAL IV SCH (06:16)
[2022-11-13] MEDS ORDERED: NS IV 1000 ML 1,000 ML ONE (08:00)
[2022-11-13] MEDS ORDERED: HEParin (CATH LAB) 2,000 ML IV ONE (08:00)
[2022-11-13] MEDS ORDERED: LIDOCAINE 1% INJ 20 ML VIAL ONE (08:00)
[2022-11-13] MEDS ORDERED: cefTRIAXone 1,000 MG VIAL IV/IM IM SCH (08:30)
[2022-11-13] MEDS ORDERED: cefTRIAXone IV/IM 1,000 MG in NS (IVPB) 50 ML 50 ML IV SCH (08:30)
[2022-11-13] MEDS ORDERED: ASPIRIN 81 MG CHEWABLE TABLET PO SCH (09:00)
--- NOTE | 2022-11-13 09:33 | Diagnostic Imaging Report ---
INDICATION: COPD. Right basilar opacity, follow-up. TECHNIQUE: Single view chest 4:59 AM CORRELATION STUDY: 11/12/2022 FINDINGS: Sternal wires intact. Heart size and mediastinum are stable and unremarkable. Vasculature is normal at follow-up. Lung felton also appear clear follow-up. In particular, the right lung base is unremarkable. Calcified granuloma suggest lateral right mid lung. IMPRESSION: 1. Post sternotomy. Normal vasculature. No infiltrate. Dictated by: Dictated on workstation # [id number]
[2022-11-13] MEDS ORDERED: fentaNYL INJECTION 100 MCG/2 ML VIAL ONE (10:10)
[2022-11-13] MEDS ORDERED: MIDAZOLAM INJ 5 MG/5 ML VIAL ONE (10:10)
[2022-11-13] MEDS ORDERED: ALBU2.5V4 NEB (11:39)
[2022-11-13] MEDS ORDERED: HYDR-3923 PO (11:39)
[2022-11-13] MEDS ORDERED: CLON1PAT16 TD (11:39)
[2022-11-13] MEDS ORDERED: SPIR50TA PO (11:39)
[2022-11-13] MEDS ORDERED: PREG25CA19 PO (11:43)
--- NOTE | 2022-11-13 11:49 | Cardiology Progress Note ---
Cardiology Progess Note Progress Date Seen by Provider: Nov 13, 2022 Time Seen by Provider: 09:00 No acute issues overnight. Intermittently confused. Troponin down trended from 2.9-2.3 this morning. for cardiac cath today. Focused Exam Capillary Refill: Less Than 3 Seconds Lactic Acid Level Gen: NAD, resting comfortably; patient reports intermittently confused. Neck: No bruits, no JVD Lungs: CTA B; mildly diminished breath sounds in bases. No w-r-r CV: nl s1/s2; no g-r; regular rate and rhythm. Abd: + BS, soft NT,ND Ext: Diminished bilateral femoral pulses no c-c-e, wwp A/P-Cardiology Assessment/Plan Plan 77-year-old female with a history of CAD status post two-vessel CABG in 2011, COPD on 4 L home O2, tobacco abuse (last smoked 2 weeks ago), hypertension, hyperlipidemia, who presents for evaluation of chest discomfort and shortness of breath, found to have an NSTEMI. ##NSTEMI: History of two-vessel CABG in 2011. Troponin down trended from 2.98- 2.9 for cardiac cath this AM. Further recommendations to be advanced postcardiac cath. Cardiogram demonstrated normal LV RV size and function with an EF of 60 to 65%, grade 1 diastolic dysfunction. Further recommendations to be advanced postcardiac cath. ##Hypertension: Blood pressures 110s to 150s over 40s to 70s. We will optimize regimen. Continue with nifedipine 30 twice daily and Coreg 12.5 twice daily for now. May consider increasing Coreg to 18.75 twice daily. ##Elevated creatinine, 1.5. Creatinine is gone from 1.0-1.5 today. Discontinue Lasix. Restart Lasix 40 mg IV daily tomorrow. Patient also noted to have UTI. Urinalysis with positive moderate bacteria and positive nitrites. Start ceftriaxone 1 g IV daily. ##Hypercalcemia: Unclear etiology. Improved today down to 12.1. Clinical Quality Measures AMI/AHF: ASA po Prior to arrival: Yes KRZYSZTOF RESENDEZ MD Nov 13, 2022 11:49 am
--- NOTE | 2022-11-13 11:59 | Cardiac Cath Report ---
CARDIAC CATHETERIZATION DATE OF PROCEDURE: [November 13, 2022.] INDICATION: [NSTEMI.]. HISTORY: 77-year-old female with a history of CAD status post two-vessel CABG in 2012, COPD on 4 L home O2, tobacco abuse (last smoked 2 weeks ago), hypertension, hyperlipidemia, who presents for evaluation of chest discomfort and shortness of breath, found to have positive troponin troponins. NSTEMI. For cardiac cath. PROCEDURES PERFORMED: 1. Left common femoral artery access with ultrasound guidance and micropuncture kit 2. Left groin angiography. 3. Selective coronary angiography. 4. Graft angiography. 5. Manual closure of left groin access. PROCEDURE DESCRIPTION: After informed consent and in the fasting state, left heart catheterization was performed through the [] [] artery utilizing a [] Polish system by percutaneous approach. Standard [place] catheters were utilized for the diagnostic portion of the procedure. All catheters were exchanged over a guidewire. RESULTS: HEMODYNAMICS: []. CORONARY ANGIOGRAPHY: Left main coronary artery: The left main is a moderate size vessel with severe calcification. There is a 60% stenosis extending from the ostium to the distal portion of the vessel. The left main gives rise to the LAD and left circumflex territories. Left anterior descending coronary artery: The LAD is a long vessel that reaches the apex. It is severely diffusely diseased in the proximal to mid portions of the LAD. The distal vessel however is spared. LAD gives rise to a diagonal vessel.. Left circumflex coronary artery: The left circumflex is a moderate to large size vessel. Serial 90% skip lesions are noted in the mid to distal left circumflex vessel. The left circumflex gives rise to 2 OM vessels and to LPL vessels. OM1 is a moderate to large size vessel with a long area of 60 to 70% disease in the proximal portion. OM 2 is a small size vessel. LPL 1 and LPL 2 are small to moderate size vessels with mild diffuse disease. Right coronary artery: We were unable to cannulate the RCA. Aortogram revealed a dominant RCA with patent stents in the proximal portion of the vessel. The mid segment of the border of the vessel appears moderate to severely diffusely diseased. The RCA gives rise to an RPDA. The RPDA is moderate in size with minimal luminal irregularities Saphenous vein graft to left-sided vessel: Occluded at the ostium [place] to LAD: Atretic, diffusely disease. Patent. Left groin angiography: Severely diseased left common iliac. Severely diffusely diseased left external iliac artery. The left common femoral is a small caliber vessel with moderate to severe diffuse disease and moderate calcification. Arteriotomy was proximal to the DIFFERENTIAL REPAIRER bifurcation and distal to the inferior epigastric artery considered suitable for procedure. PERCUTANEOUS CORONARY INTERVENTION: []. IMPRESSION: 1. Severe multivessel CAD. 2. Elevated left-sided cardiac filling pressures. Plan: 1. CT surgical consultation for consideration of CABG. 2. Medical optimization KRZYSZTOF RESENDEZ MD Nov 13, 2022 11:59 am
--- NOTE | 2022-11-13 12:04 | Progress Note ---
ERNIE DIAZ 11/13/22 1204: Subjective Date Seen by a Provider: Nov 13, 2022 Time Seen by a Provider: 10:45 Subjective/Events-last exam Patient seen laying in bed, no family at bedside. Patient seems slightly confused, nurse talked with patient's , this appears to be her baseline. Patient states she feels well this morning, no chest pain SOB. Troponin measured at 2.801 this morning, was 2.977 yesterday afternoon, 0.436 on admit. Echo showed EF of 60-65%, grade 1 diastolic dysfunction, mild mitral regurgitation. 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 Ca mildly decreased from yesterday, 12.1 today. CTA showed no PE, did show opacities in right mid-lower l karishma which may represent scarring or atelectasis. Preliminary urine culture showed probable E. coli, started on Rocephin. Patient has no new complaints. Review of Systems General: No Chills, No Night Sweats HEENT: No Head Aches, No Visual Changes Pulmonary: No Dyspnea, No Cough Cardiovascular: No: Chest Pain, Palpitations Gastrointestinal: No: Nausea, Vomiting Genitourinary: No Dysuria, No Hematuria Musculoskeletal: No: neck pain, back pain Neurological: No: Weakness, Numbness Objective Exam Last Set of Vital Signs Vital Signs Date Time Temp Pulse Resp B/P (MAP) Pulse Ox O2 Delivery O2 Flow Rate FiO2 11/13/22 10:00 75 16 142/73 (81) 95 Nasal Cannula 3.50 11/13/22 04:08 36.3 Capillary Refill : Less Than 3 Seconds I&O Intake and Output 11/12/22 23:59 Intake Total 250 ml Output Total 2405 ml Balance -2155 ml Intake Oral 50 ml IV Total 200 ml Output Urine Total 2405 ml Daily Weight Change No General: Alert, Cooperative HEENT: Atraumatic, PERRLA Neck: Supple, No JVD Lungs: Clear to Auscultation Abdomen: Normal Bowel Sounds, Soft Extremities: No Clubbing, No Cyanosis Skin: No Rashes, No Breakdown Neuro: Normal Speech, Sensation Intact, Other (slight confusion) Psych/Mental Status: Mental Status NL Results Lab Laboratory Tests 11/12/22 14:45: Magnesium Level 1.5L, Troponin I 2.977*H 11/13/22 04:00: Magnesium Level 2.6H, Troponin I 2.801*H, White Blood Count 9.1, Red Blood Count 3.82, Hemoglobin 11.1L, Hematocrit 36, Mean Corpuscular Volume 94, Mean Corpuscular Hemoglobin 29, Mean Corpuscular Hemoglobin Concent 31L, Red Cell Distribution Width 12.9, Platelet Count 201, Mean Platelet Volume 12.2, Immature Granulocyte % (Auto) 0, Neutrophils (%) (Auto) 70, Lymphocytes (%) (Auto) 16, Monocytes (%) (Auto) 12, Eosinophils (%) (Auto) 1, Basophils (%) (Auto) 1, Neutr ophils # (Auto) 6.4, Lymphocytes # (Auto) 1.5, Monocytes # (Auto) 1.1H, Eosinophils # (Auto) 0.1, Basophils # (Auto) 0.1, Immature Granulocyte # (Auto) 0.0, Sodium Level 138, Potassium Level 4.9, Chloride Level 98, Carbon Dioxide Level 28, Anion Gap 12, Blood Urea Nitrogen 44H, Creatinine 1.53H, Estimat Glomerular Filtration Rate 35, BUN/Creatinine Ratio 29, Glucose Level 105, Calcium Level 12.1H, Corrected Calcium 12.3H, Phosphorus Level 4.1, Total Bilirubin 0.3, Aspartate Amino Transf (AST/SGOT) 28, Alanine Aminotransferase (ALT/SGPT) 14, Alkaline Phosphatase 70, Total Protein 6.8, Albumin 3.8 Microbiology 11/12/22 MRSA Screen - Final, Complete MRSA not isolated 11/12/22 Urine Culture - Preliminary, Resulted Probable E.coli Assessment/Plan Assessment/Plan Assess & Plan/Chief Complaint NSTEMI: cardiology consulted, union laborer today, continue ASA, monitoring with telemetry HTN urgency: nitro drip stopped this morning, currently on nifedipine and carv edilol, systolic has been in 130s-140s since stopping drip CAD: hx of CABG in 2011, continue rosuvastatin COPD: maintaining good O2 sats on 3.5L [place] continue nebs CHF: lasix held today due to Cr elevated from 2.05 yesterday to 1.53, resuming tomorrow Hypercalcemia: decreased to 12.1 today, continue to monitor. PTH at 20.6 despite hypercalcemia. Recommend outpatient follow up Angina: has not had any chest pain since shortly after admission UTI: continue rocephin Hypomagnesemia: resolved HLD: continue rosuvastatin GERD Clinical Quality Measures Admission Status Admission Dx NSTEMI: Cardiology consulted, continue ASA, monitoring with telemetry, currently on nitro drip HTN urgency: cardiology consulted, appreciate recs, BP improved from admission, restart home BP meds when able Hx CAD w/ CABG: CABG done in 2011 COPD: good o2 sats on 4L [place] no SOB, continue nebs Hypercalcemia: obtain PTH, spot urine calcium, ionized calcium, vitamin D levels Angina: none currently, nitro PRN Hypomagnesemia: started on Mg replacement, continue to monitor, replace as needed HLD: resume home statin GERD: currently asymptomatic, antacids as needed AMI/AHF: ASA po Prior to arrival: Yes ADRIANA MONTOYA DO 11/13/22 2221: Subjective Subjective/Events-last exam Patient undergoing cath Objective Exam General: Alert, Cooperative Lungs: Clear to Auscultation Heart: Regular Rate Assessment/Plan Assessment/Plan Assess & Plan/Chief Complaint Catheterization appreciated Supervisory-Addendum Brief Verification & Attestation Participated in pt care: history, MDM, physical Personally performed: exam, history, MDM, supervision of care Care discussed with: Medical Student Procedures: n/a Results interpretation: Verified all documentation Verification and Attestation of Medical Student E/M Service A medical student performed and documented this service in my presence. I reviewed and verified all information documented by the medical student and made modifications to such information, when appropriate. I personally performed the physical exam and medical decision making. Adriana Montoya Nov 13, 2022,22:20 ERNIE DIAZ Nov 13, 2022 12:04 ADRIANA MONTOYA DO Nov 13, 2022 22:21
[2022-11-13] MEDS ORDERED: DexMEDEtomidine 1,000mcg/250ml 250 ML IV ONE (12:45)
[2022-11-13] MEDS ORDERED: DexMEDEtomidine 1,000mcg/250ml 250 ML IV SCH (12:45)
--- NOTE | 2022-11-13 15:30 | Physician Query-Final Dx ---
CATINA LARSEN 11/13/22 1530: Final Diagnosis Give Final Diagnosis Please give Final Diagnosis The medical record reflects the following clinical evidence: Clinical Indicators: Echo showing normal systolic function, EF 60 to 65%, but grade 1 diastolic dysfunction, BNP on admission 2372, no documentation of JVD, or edema, per CTA cardiomegaly with suggestion of pulmonary hypertension Risk Factor(s): No documented history of CHF, history of CAD with CABG, admitted with non-STEMI Treatment: I&O, IV Lasix in ER and daily, echo, cardiology consultation with cardiac cath, nitroglycerin IV Acute diastolic (congestive) heart failure, present on admission Other explanation of clinical findings Unable to determine (no explanation for clinical findings) Please clarify and document your clinical opinion in the progress notes and discharge summary including the definitive and/or presumptive diagnosis, (suspected or probable), related to the above clinical findings. Please include clinical findings supporting your diagnosis. Catina Larsen, MSN, RN Clinical Skin Fitter [phone] [email or web address] LORENA OSULLIVAN DO 11/13/22 2200: Final Diagnosis Give Final Diagnosis Acute diastolic (congestive) heart failure, present on admission CATINA LARSEN Nov 13, 2022 15:30 LORENA OSULLIVAN DO Nov 13, 2022 22:00
--- NOTE | 2022-11-13 15:31 | Physician Query-Final Dx ---
CATINA LARSEN 11/13/22 1531: Final Diagnosis Give Final Diagnosis Please give Final Diagnosis The medical record reflects the following clinical evidence: Clinical Indicators: Requiring oxygen during stay at 3.5 to 4 L, RR admission 20 not higher than 20 no documentation of acute respiratory signs and symptoms Risk Factor(s): History of COPD, with oxygen use at home continues approximately 3 to 4 L, Treatment: Supplemental O2 at baseline, respiratory monitoring, albuterol/ipratropium, Chronic respiratory failure, Present on admission Other explanation of clinical findings Unable to determine (no explanation for clinical findings) Please clarify and document your clinical opinion in the progress notes and discharge summary including the definitive and/or presumptive diagnosis, (suspected or probable), related to the above clinical findings. Please include clinical findings supporting your diagnosis. Catina Larsen, MSN, RN Clinical Security Rep [phone] [email or web address] LORENA OSULLIVAN DO 11/13/22 2200: Final Diagnosis Give Final Diagnosis Chronic respiratory failure, Present on admission CATINA LARSEN Nov 13, 2022 15:31 LORENA OSULLIVAN DO Nov 13, 2022 22:00
[2022-11-13] MEDS ORDERED: NS IV 1000 ML 1,000 ML IV SCH (15:45)
[2022-11-13] MEDS: NITRO DRIP 25000 MCG/D5W 250 ML IV SCH (16:21)
[2022-11-13] MEDS ORDERED: HEParin DRIP 25000 UNIT/500ML 500 ML IV SCH (17:00)
--- NOTE | 2022-11-13 17:08 | Discharge Summary ---
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 no SOB, continue nebs Hypercalcemia: obtain PTH, spot urine calcium, ionized calcium, vitamin D levels Angina: none currently, nitro PRN Hypomagnesemia: started on Mg replacement, continue to monitor, replace as needed HLD: resume home statin GERD: currently asymptomatic, antacids as needed Reason Hospital Visit Chief complaint: Shortness of breath with chest pain HPI: This is a 77-year-old female clinic patient of [facility] in [place] who presented to the ER with shortness of breath and chest pain. Elevated troponin prompted cardiology consult. Severe COPD requires 4 L of oxygen on at all times. I did speak with cardiology who will see her in consultation. Discharge Summary Discharge Physical Examination Allergies: Coded Allergies: amlodipine (Verified Allergy, Intermediate, Rash, 07/15/22) Sulfa (Sulfonamide Antibiotics) (Verified Allergy, Unknown, 07/09/22) Vitals & I&Os Vital Signs Date Time Temp Pulse Resp B/P (MAP) Pulse Ox O2 Delivery O2 Flow Rate FiO2 11/13/22 18:00 64 19 154/65 (94) 99 Nasal Cannula 4.00 11/13/22 16:04 35.7 Hospital Course Was the Problem List Reviewed?: Yes Short course after she was admitted for unstable angina and elevated troponin so she was placed on NTG drip and Cardiology consulted. Pt underwent cath revealing multivessel disease meeting criterai for transfer for [facility] consult Labs (last 24 hrs) Laboratory Tests 11/12/22 04:24: Influenza Type A (RT-PCR) Not Detected, Influenza Type B (RT-PCR) Not Detected, SARS-CoV-2 RNA (RT-PCR) Not Detected, Group A Streptococcus Screen Not Detected 11/12/22 04:40: White Blood Count 10.2, Red Blood Count 3.89, Hemoglobin 11.3L, Hematocrit 38, Mean Corpuscular Volume 97, Mean Corpuscular Hemoglobin 29, Mean Corpuscular Hemoglobin Concent 30L, Red Cell Distribution Width 13.1, Platelet Count 199, Mean Platelet Volume 12.4H, Immature Granulocyte % (Auto) 0, Neutrophils (%) (Auto) 83H, Lymphocytes (%) (Auto) 11L, Monocytes (%) (Auto) 5, Eosinophils (%) (Auto) 1, Basophils (%) (Auto) 0, Neutrophils # (Auto) 8.5H, Lymphocytes # (Auto) 1.1, Monocytes # (Auto) 0.5, Eosinophils # (Auto) 0.1, Basophils # (Auto) 0.0, Immature Granulocyte # (Auto) 0.0, Prothrombin Time 12.8, INR Comment 0.9, Activated Partial Thromboplast Time 33, D-Dimer 1.15H, Urine Random Calcium 8, Sodium Level 135, Potassium Level 5.4H, Chloride Level 101, Carbon Dioxide Level 22, Anion Gap 12, Blood Urea Nitrogen 42H, Creatinine 1.04, Estimat Glomerular Filtration Rate 56, BUN/Creatinine Ratio 40, Glucose Level 126H, Calcium Level 13.4*H, Corrected Calcium 13.2H, Ionized Calcium (Measured) TNP:QNS, Ionized Calcium pH TNP:QNS, Ionized Calcium (Corrected) TNP:QNS, Magnesium Level 1.1*L, Total Bilirubin 0.3, Aspartate Amino Transf (AST/SGOT) 31, Alanine Aminotransferase (ALT/SGPT) 17, Alkaline Phosphatase 70, Total Creatine Kinase 844H, Creatine Kinase MB 16.2*H, Myoglobin 174.0H, Troponin I 0.436*H, B-Type Natriuretic Peptide 2372.0H, Total Protein 7.4, Albumin 4.2, Triglycerides Level 55, Cholesterol Level 186, LDL Cholesterol Direct 130H, VLDL Cholesterol 11, HDL Cholesterol 52, Amylase Level 80, Lipase 22, Vitamin D 25-Hydroxy 85.3, Parathyroid Hormone (Intact) 20.6, Calcium (PTH Intact) 13.4*H 11/12/22 08:40: Urine Color YELLOW, Urine Clarity CLEAR, Urine pH 5.0, Urine Specific [place] 1.010L, Urine Protein NEGATIVE, Urine Glucose (UA) NEGATIVE, Urine Ketones NEGATIVE, Urine Nitrite POSITIVEH, Urine Bilirubin NEGATIVE, Urine Urobilinogen 0.2, Urine Leukocyte Esterase NEGATIVE, Urine RBC (Auto) NEGATIVE, Urine RBC RARE, Urine WBC NONE, Urine Crystals NONE, Urine Bacteria MODERATEH, Urine Casts NONE, Urine Mucus NEGATIVE, Urine Culture Indicated YES 11/12/22 09:20: Blood Gas Puncture Site RIGHT RADIAL, Blood Gas Patient Temperature 36.5, Arterial Blood pH 7.28*L, Arterial Blood Partial Pressure CO2 65H, Arterial Blood Partial Pressure O2 34*L, Arterial Blood HCO3 30H, Arterial Blood Total CO2 31.7H, Arterial Blood Oxygen Saturation 56L, Arterial Blood Base Excess 3.3H , Mundo Test POSITIVE, Blood Gas Ventilator Setting NO, Blood Gas Inspired Oxygen 4 L 11/12/22 14:45: Magnesium Level 1.5L, Troponin I 2.977*H 11/13/22 04:00: Magnesium Level 2.6H, Troponin I 2.801*H, White Blood Count 9.1, Red Blood Count 3.82, Hemoglobin 11.1L, Hematocrit 36, Mean Corpuscular Volume 94, Mean Corpuscular Hemoglobin 29, Mean Corpuscular Hemoglobin Concent 31L, Red Cell Distribution Width 12.9, Platelet Count 201, Mean Platelet Volume 12.2, Immature Granulocyte % (Auto) 0, Neutrophils (%) (Auto) 70, Lymphocytes (%) (Auto) 16, Monocytes (%) (Auto) 12, Eosinophils (%) (Auto) 1, Basophils (%) (Auto) 1, Neutrophils # (Auto) 6.4, Lymphocytes # (Auto) 1.5, Monocytes # (Auto) 1.1H, Eosinophils # (Auto) 0.1, Basophils # (Auto) 0.1, Immature Granulocyte # (Auto) 0.0, Sodium Level 138, Potassium Level 4.9, Chloride Level 98, Carbon Dioxide Level 28, Anion Gap 12, Blood Urea Nitrogen 44H, Creatinine 1.53H, Estimat Glomerular Filtration Rate 35, BUN/Creatinine Ratio 29, Glucose Level 105, Calcium Level 12.1H, Corrected Calcium 12.3H, Phosphorus Level 4.1, Total Bilirubin 0.3, Aspartate Amino Transf (AST/SGOT) 28, Alanine Aminotransferase (ALT/SGPT) 14, Alkaline Phosphatase 70, Total Protein 6.8, Albumin 3.8 11/13/22 18:11: Glucometer 119H 11/13/22 18:20: White Blood Count 8.3, Red Blood Count 4.00, Hemoglobin 11.9, Hematocrit 37, Mean Corpuscular Volume 93, Mean Corpuscular Hemoglobin 30, Mean Corpuscular Hemoglobin Concent 32, Red Cell Distribution Width 12.8, Platelet Count 203, Mean Platelet Volume 11.7, Prothrombin Time 13.3, INR Comment 1.0, Activated Partial Thromboplast Time 29 Microbiology 11/12/22 MRSA Screen - Final, Complete MRSA not isolated 11/12/22 Urine Culture - Preliminary, Resulted Probable E.coli Pending Labs Microbiology Date/Time Source Procedure Growth Status 11/12/22 10:38 Nasal MRSA Screen - Final MRSA not isolated Complete 11/12/22 08:40 Urine Indwelling Cath (Longterm) Urine Culture - Preliminary Probable E.coli Resulted Laboratory Tests 11/12/22 04:24: Influenza Type A (RT-PCR) Not Detected, Influenza Type B (RT-PCR) Not Detected, SARS-CoV-2 RNA (RT-PCR) Not Detected, Group A Streptococcus Screen Not Detected 11/12/22 04:40: White Blood Count 10.2, Red Blood Count 3.89, Hemoglobin 11.3, Hematocrit 38, Mean Corpuscular Volume 97, Mean Corpuscular Hemoglobin 29, Mean Corpuscular Hemoglobin Concent 30, Red Cell Distribution Width 13.1, Platelet Count 199, Mean Platelet Volume 12.4, Immature Granulocyte % (Auto) 0, Neutrophils (%) (Auto) 83, Lymphocytes (%) (Auto) 11, Monocytes (%) (Auto) 5, Eosinophils (%) (Auto) 1, Basophils (%) (Auto) 0, Neutrophils # (Auto) 8.5, Lymphocytes # (Auto) 1.1, Monocytes # (Auto) 0.5, Eosinophils # (Auto) 0.1, Basophils # (Auto) 0.0, Immature Granulocyte # (Auto) 0.0, Prothrombin Time 12.8, INR Comment 0.9, Activated Partial Thromboplast Time 33, D-Dimer 1.15, Urine Random Calcium 8, Sodium Level 135, Potassium Level 5.4, Chloride Level 101, Carbon Dioxide Level 22, Anion Gap 12, Blood Urea Nitrogen 42, Creatinine 1.04, Estimat Glomerular Filtration Rate 56, BUN/Creatinine Ratio 40, Glucose Level 126, Calcium Level 13.4, Corrected Calcium 13.2, Ionized Calcium (Measured) TNP:QNS, Ionized Calcium pH TNP:QNS, Ionized Calcium (Corrected) TNP:QNS, Magnesium Level 1.1, Total Bilirubin 0.3, Aspartate Amino Transf (AST/SGOT) 31, Alanine Aminotransferase (ALT/SGPT) 17, Alkaline Phosphatase 70, Total Creatine Kinase 844, Creatine Kinase MB 16.2, Myoglobin 174.0, Troponin I 0.436, B-Type Natriu retic Peptide 2372.0, Total Protein 7.4, Albumin 4.2, Triglycerides Level 55, Cholesterol Level 186, LDL Cholesterol Direct 130, VLDL Cholesterol 11, HDL Cholesterol 52, Amylase Level 80, Lipase 22, Vitamin D 25-Hydroxy 85.3, Parathyroid Hormone (Intact) 20.6, Calcium (PTH Intact) 13.4 11/12/22 08:40: Urine Color YELLOW, Urine Clarity CLEAR, Urine pH 5.0, Urine Specific [place] 1.010, Urine Protein NEGATIVE, Urine Glucose (UA) NEGATIVE, Urine Ketones NEGATIVE, Urine Nitrite POSITIVE, Urine Bilirubin NEGATIVE, Urine Urobilinogen 0.2, Urine Leukocyte Esterase NEGATIVE, Urine RBC (Auto) NEGATIVE, Urine RBC RARE, Urine WBC NONE, Urine Crystals NONE, Urine Bacteria MODERATE, Urine Casts NONE, Urine Mucus NEGATIVE, Urine Culture Indicated YES 11/12/22 09:20: Blood Gas Puncture Site RIGHT RADIAL, Blood Gas Patient Temperature 36.5, Arterial Blood pH 7.28, Arterial Blood Partial Pressure CO2 65, Arterial Blood Partial Pressure O2 34, Arterial Blood HCO3 30, Arterial Blood Total CO2 31.7, Arterial Blood Oxygen Saturation 56, Arterial Blood Base Excess 3.3, Mundo Test POSITIVE, Blood Gas Ventilator Setting NO, Blood Gas Inspired Oxygen 4 L 11/12/22 14:45: Magnesium Level 1.5, Troponin I 2.977 11/13/22 04:00: Magnesium Level 2.6, Troponin I 2.801, White Blood Count 9.1, Red Blood Count 3.82, Hemoglobin 11.1, Hematocrit 36, Mean Corpuscular Volume 94, Mean Corpuscular Hemoglobin 29, Mean Corpuscular Hemoglobin Concent 31, Red Cell Distribution Width 12.9, Platelet Count 201, Mean Platelet Volume 12.2, Immature Granulocyte % (Auto) 0, Neutrophils (%) (Auto) 70, Lymphocytes (%) (Auto) 16, Monocytes (%) (Auto) 12, Eosinophils (%) (Auto) 1, Basophils (%) (Auto) 1, Neutrophils # (Auto) 6.4, Lymphocytes # (Auto) 1.5, Monocytes # (Auto) 1.1, Eosinophils # (Auto) 0.1, Basophils # (Auto) 0.1, Immature Granulocyte # (Auto) 0.0, Sodium Level 138, Potassium Level 4.9, Chloride Level 98, Carbon Dioxide Level 28, Anion Gap 12, Blood Urea Nitrogen 44, Creatinine 1.53, Estimat Glomerular Filtration Rate 35, BUN/Creatinine Ratio 29, Glucose Level 105, Calcium Level 12.1, Corrected Calcium 12.3, Phosphorus Level 4.1, Total Bilirubin 0.3, Aspartate Amino Transf (AST/SGOT) 28, Alanine Aminotransferase (ALT/SGPT) 14, Alkaline Phosphatase 70, Total Protein 6.8, Albumin 3.8 11/13/22 18:11: Glucometer 119 11/13/22 18:20: White Blood Count 8.3, Red Blood Count 4.00, Hemoglobin 11.9, Hematocrit 37, Mean Corpuscular Volume 93, Mean Corpuscular Hemoglobin 30, Mean Corpuscular Hemoglobin Concent 32, Red Cell Distribution Width 12.8, Platelet Count 203, Mean Platelet Volume 11.7, Prothrombin Time 13.3, INR Comment 1.0, Activated Partial Thromboplast Time 29 Discharge Home Medications: Active Scripts Active Reported Pregabalin 25 Mg Capsule 25 Mg PO TID Clonidine TTS 3 Patch (Clonidine) 0.3 Mg/24 Hour Patch.tdwk 0.3 Mg TD WED LAST FILLED 09-23-2022 #06/26 DAY SUPPLY Aldactone (Spironolactone) 50 Mg Tablet 50 Mg PO DAILY Albuterol Sulfate 2.5 Mg/3 Ml (0.083 %) Vial.neb 2.5 Mg NEB Q6H PRN Hydralazine HCl 25 Mg Tablet 25 Mg PO QID Carvedilol 12.5 Mg Tablet 12.5 Mg PO BID WITH MEALS Simvastatin 40 Mg Tablet 40 Mg PO HS Aspirin EC (Aspirin) 81 Mg Tablet.dr 81 Mg PO DAILY Meloxicam 15 Mg Tablet 15 Mg PO DAILY Lisinopril 40 Mg Tablet 40 Mg PO DAILY Diazepam 5 Mg Tablet 5 Mg PO TID PRN Ventolin Hfa (Albuterol Sulfate) 8.5 Gm Hfa.aer.ad 2 Puff IH Q4H PRN Instructions to patient/family Please see electronic discharge instructions given to patient. Diagnosis/Problems Diagnosis/Problems (1) Chest pain Status: Acute (2) Hypertensive urgency Status: Acute (3) NSTEMI (non-ST elevated myocardial infarction) Clinical Quality Measures AMI/AHF: ASA po Prior to arrival: Yes LORENA OSULLIVAN DO Nov 13, 2022 17:07
[2022-11-13] MEDS: DOCUSATE SODIUM 100 MG CAPSULE PO SCH (18:00)
[2022-11-13] MEDS: carvediloL 12.5 MG TABLET PO SCH (18:00)
[2022-11-13] MEDS: NIFEdipine Extended Release 30 MG TABLET PO SCH (18:00)
[2022-11-13] MEDS: SENNOSIDES 8.6 MG TABLET PO SCH (18:01)
[2022-11-13 18:29] LABS: HEMATOCRIT 37 % (35-52); HEMOGLOBIN 11.9 g/dL (11.5-16.0); MEAN CORPUSCULAR HEMOGLOBIN 30 pg (25-34); MEAN CORPUSCULAR HGB CONC 32 g/dL (32-36); MEAN CORPUSCULAR VOLUME 93 fL (80-99); MEAN PLATELET VOLUME 11.7 fL (9.0-12.2); PLATELET COUNT 203 10^3/uL (130-400); WHITE BLOOD COUNT 8.3 10^3/uL (4.3-11.0)
[2022-11-13 18:40] LABS: PROTHROMBIN TIME PATIENT 13.3 SEC (12.2-14.7)
[2022-11-14] MEDS ORDERED: ISOSORBIDE MONONITRATE 30 MG TABLET PO SCH (09:00)
[2022-11-14] MEDS ORDERED: FUROSEMIDE INJECTION 40 MG/4 ML VIAL IV SCH (17:00)
== END 2022-11-13 18:30 | disposition short-term general hospital (02) | DRG 280 ==
LOC: EDUNIT# 04:15 → ER 04:16 → ICU 08:02
PROVIDERS: ADMIT Internal Medicine; ATTEND Internal Medicine
PROC: 4A023N7 Measurement of Cardiac Sampling and Pressure, Left Heart, Percutaneous Approach (ICD-10-PCS; principal; 2022-11-13)
PROC: B2121ZZ Fluoroscopy of Single Coronary Artery Bypass Graft using Low Osmolar Contrast (ICD-10-PCS; 2022-11-13)
PROC: B2181ZZ Fluoroscopy of Left Internal Mammary Bypass Graft using Low Osmolar Contrast (ICD-10-PCS; 2022-11-13)
PROC: B2111ZZ Fluoroscopy of Multiple Coronary Arteries using Low Osmolar Contrast (ICD-10-PCS; 2022-11-13)
PROC: B41J1ZZ Fluoroscopy of Other Lower Arteries using Low Osmolar Contrast (ICD-10-PCS; 2022-11-13)
DX: I21.4 Non-ST elevation (NSTEMI) myocardial infarction (principal); I50.31 Acute diastolic (congestive) heart failure; E87.29 Other acidosis; J96.11 Chronic respiratory failure with hypoxia; Z95.1 Presence of aortocoronary bypass graft; I11.0 Hypertensive heart disease with heart failure; J44.9 Chronic obstructive pulmonary disease, unspecified; Z99.81 Dependence on supplemental oxygen; E78.5 Hyperlipidemia, unspecified; F17.210 Nicotine dependence, cigarettes, uncomplicated; Z82.49 Family history of ischemic heart disease and other diseases of the circulatory system; Z79.82 Long term (current) use of aspirin; Z79.899 Other long term (current) drug therapy; E83.52 Hypercalcemia; E83.42 Hypomagnesemia; I16.0 Hypertensive urgency; I25.119 Atherosclerotic heart disease of native coronary artery with unspecified angina pectoris; K21.9 Gastro-esophageal reflux disease without esophagitis; Z20.822 Contact with and (suspected) exposure to COVID-19
CPT/HCPCS: 36410; 36415; 71045; 71275; 76937; 80053; 80061; 81000; 82150; 82306; 82330; 82340; 82550; 82553; 82805; 82947; 83690; 83735; 83874; 83880; 83970; 84100; 84484; 85025; 85027; 85379; 85610; 85730; 87077; 87081; 87088; 87186; 87430; 87636; 93005; 93041; 93306; 93459; 93567; 94640

== ENCOUNTER 2022-11-27 12:17 | Inpatient (IN) | payer MEDICARE, OTHER ==
[~2022-11-27] VITALS: Ht 157.5 cm; Wt 64.5 kg
[~2022-11-27 12:17] MED LIST changes: +ALBU2.5V4 NEB; +CEPH500T PO; +CLON1PAT16 TD; +HYDR-3923 PO; +PREG25CA PO; +SPIR50TA PO
[2022-11-29] MEDS ORDERED: LEVO-55 PO (07:48)
--- NOTE | 2022-11-30 11:53 | PM&R Post Admission Assessment ---
PM&R HP Date of Visit: Nov 30, 2022 Time of Visit: 18:00 History of Present Illness Chief complaint: CVA with aphasia and dysphagia requiring PEG tube placement HPI: This is a 77-year-old female who previously had aggressive intervention with stent placement on 11/18/2022 at for unstable angina requiring nitroglycerin drip which she was admitted to this hospital and moved to after cardiac catheterization reviewed who presented to this ER with right-sided weakness found to have acute CVA so she was moved to after thrombolytic given and her NIH score was 9. She continued to have aphasia and dysphagia requiring PEG tube placement. Right-sided weakness will require aggressive rehab. Currently she is resting. Tube feedings are infusing without difficulty. discharge summary: Name: Anayeli Mobley Date Of : 1945 Age: 77 y.o. Admit date: 11/22/2022 Discharge date: 11/30/2022 Discharge Attending: Dr. Anita Layton Discharge Summary Completed By: Matt Gallagher MD Service: Neurology Stroke Reason for hospitalization: Acute ischemic stroke (HCC) [I63.9] Primary Discharge Diagnosis: Acute ischemic stroke (HCC) Hospital Diagnoses: Hospital Problems Active Problems * (Principal) Acute ischemic stroke (HCC) HTN (hypertension) PAD (peripheral artery disease) (HCC) CAD (coronary artery disease) NSTEMI (non-ST elevated myocardial infarction) (HCC) COPD (chronic obstructive pulmonary disease) ([facility]) Troponin level elevated Tissue plasminogen activator (tPA) administered at other facility within 24 hours before current admission PEG (percutaneous endoscopic gastrostomy) status ([facility]) Anemia in other chronic diseases classified elsewhere Resolved Problems RESOLVED: Leukocytosis RESOLVED: Acute renal insufficiency Significant Past Medical History CAD (coronary artery disease) COPD (chronic obstructive pulmonary disease) (HCC) HTN (hypertension) NSTEMI (non-ST elevated myocardial infarction) (HCC) PAD (peripheral artery disease) ([facility]) Allergies Amlodipine and Sulfa (sulfonamide antibiotics) Brief Hospital Course Anayeli Mobley is a 77 y.o. female with history of CAD with prior CABG in 2011 and recent NSTEMI and coronary stents x2 on 11/18/2022 (on DAPT), COPD (4L O2 at baseline), HTN, and Peripheral artery disease that presented to [facility] [place], [place] due to acute onset right facial droop, right- sided weakness, and expressive aphasia. Last known normal 1700 of 11/22. NIHSS at OSH 17. CTH with small hypodensity in L. kramer radiata, ASPECTS ~10. CTA poor contrast bolus timing and venous contamination, however soft plaque noted at L. ICA origin causing severe narrowing. CTP showed global hypoperfusion (non-diagnostic). TNK administered at 1845. She got TNK administered at OSH on 11/22 and then got transferred to [facility]. Her NIH upon arrival was 9. She underwent cerebral angiography and it showed 50% stenosis of the proximal ICA, without LVO. She underwent an MRI Brain, which showed acute to early subacute cortical/subcortical strokes in the L precentral gyrus-frontal opercular region, anterior L periventricular frontal lobe, R middle frontal gyrus, and R ext capsule. During her stay, she also underwent 2x CT Head (which showed the evolving infarcts and no hemorrhagic conversions), a repeat CTA H&N (stable as compared to the one obtained in OSH before transferring), and both TTE and CLARISSE (LVEF 50- 55%, apical akinesis w/o thrombus). Patient's bilateral hemispheric strokes are thought to be related to cardio- embolic event in the setting of recent NSTEMI s/p stent on 11/18. Patient will be continued on DAPT with ASA/Plavix for recent stent, duration to be determined by Cardiology. She will also continue atorvastatin 80mg, with most recent LDL at 89, goal <70. A1c at goal of 5.4. HTN: Goal BP 100-160. Avoid hypotension given worsening of symptoms with prior Valsalva. Continue coreg 25mg BID, Hydralazine 50mg TID, lisinopril 40mg, spironolactone 50mg. Lastly, a 1-month MCOT was ordered at discharge. Additional hospitalization problems: Patient's major concerns while inpatient were with motor aphasia (able to understand and nod/shake head but unable to express words) and dysphagia, for which she was followed by [facility]BRYOLOG[facility] and had a G-tube placed on 11/27 (complicated by falling off on 11/29 but safely repositioned). Video swallow performed on 11/26 showed mild-moderate oropharyngeal dysphagia. Patient's labs were also concerning for anemia, with Hb slowly decreasing during hospitalisation and plateauing around the 8s level; iron panel revealed an iron deficiency component (iron 26, normal ferritin) for which she was started on PO iron. CT A/P was negative for hematoma. We encourage the Rehab team to obtain CBC and trend Hemoglobin during rehab stay. Her labs also showed an elevated creatinine that peaked at 1.24, promptly addressed by fluid intake and which returned immediately to normal limits. Patient's BP was managed with [employer] medications, initially held to allow for permi ssive HTN and then slowly reintroduced. Discharge MRS 3 Discharge NIH 6 Past [id number]-[id number] Hx Past Med/Social Hx: Reviewed Nursing Past Med/Soc Hx, Reviewed and Corrections made Patient Social History Marrital Status: Employed/Student: retired Alcohol Use: Denies Use Smoking Status: Former Smoker Immunizations Up To Date Tetanus Booster (TDap): More than 5yrs Date of Pneumonia Vaccine: Jan 29, 2014 Date of Influenza Vaccine: Feb 05, 2015 Past Medical History Surgeries: CABG, Coronary Stent Respiratory: COPD, Pneumonia Currently Using CPAP: No Currently Using BIPAP: No Cardiac: Coronary Artery Disease, High Cholesterol, Hypertension Reproductive: No Sexually Transmitted Disease: No HIV/AIDS: No Hysterectomy Genitourinary: Bladder Infection, UTI-Chronic Gastrointestinal: Gastroesophageal Reflux Did You Recieve Any Treatments: No Psychosocial: Sleep Difficulties, Anxiety, Suicide Attempts, Depression Adverse Reaction to Blood Gu: No Family History Patient reports no known family medical history. 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 PM&R Allergy/Meds/Data Review Allergies Coded Allergies: amlodipine (Verified Allergy, Intermediate, Rash, 07/15/22) Sulfa (Sulfonamide Antibiotics) (Verified Allergy, Unknown, 07/09/22) Home Medications Scheduled Aspirin (Aspirin EC), 81 MG PO DAILY, (Reported) Atorvastatin Calcium (Atorvastatin Calcium), 80 MG NG HS, (Reported) Carvedilol (Carvedilol), 25 MG NG BID WITH MEALS, (Reported) Cholecalciferol (Vitamin D3) (Vitamin D3), 125 MCG PO DAILY, (Reported) Clonidine (Clonidine TTS 2 Patch), 1 PATCH TD Q7D, (Reported) Clopidogrel Bisulfate (Clopidogrel), 75 MG PO DAILY, (Reported) Dicyclomine HCl (Dicyclomine HCl), 10-20 MG PO QID, (Reported) Docusate Sodium (Stool Softener), 10 ML PO BID, (Reported) Famotidine (Famotidine), 2.5 ML FEEDING BID, (Reported) Ferrous Sulfate (Ferrous Sulfate), 325 MG PO DAILY, (Reported) Hydralazine HCl (Hydralazine HCl), 50 MG PO Q8H, (Reported) Lisinopril (Lisinopril), 40 MG PO DAILY, (Reported) Meloxicam (Meloxicam), 15 MG PO DAILY, (Reported) Pregabalin (Pregabalin), 25 MG PO TID, (Reported) Spironolactone (Aldactone), 50 MG PO DAILY, (Reported) Topiramate (Topamax), 25 MG PO DAILY, (Reported) Scheduled PRN Albuterol Sulfate (Ventolin Hfa), 2 PUFF IH Q4H PRN for SHORTNESS OF BREATH, (Reported) Clonidine HCl (Clonidine HCl), 0.1 MG PO Q4H PRN for SBP>160, (Reported) Diazepam (Diazepam), 5 MG PO TID PRN for ANXIETY, (Reported) Nitroglycerin (Nitroglycerin), 0.4 MG SL UD PRN for CHEST PAIN, (Reported) Discontinued Medications Albuterol Sulfate (Albuterol Sulfate), 2.5 MG NEB Q6H PRN for SHORTNESS OF BREATH, (Reported) Discontinued Reason: No Longer Taking Carvedilol (Carvedilol), 12.5 MG PO BID WITH MEALS, (Reported) Discontinued Reason: No Longer Taking Cephalexin (Cephalexin), 500 MG PO QID Discontinued Reason: No Longer Taking Clonidine (Clonidine TTS 3 Patch), 0.3 MG TD MON, (Reported) Discontinued Reason: No Longer Taking Levofloxacin (Levofloxacin), 500 MG PO DAILY Discontinued Reason: No Longer Taking Lisinopril (Lisinopril), 40 MG PO DAILY, (Reported) Discontinued Reason: No Longer Taking Simvastatin (Simvastatin), 40 MG PO HS, (Reported) Discontinued Reason: No Longer Taking Current Medications Current Medications Reviewed Review of Systems Constitutional: see HPI, malaise, weakness EENTM: other (Dysphagia) Respiratory: dyspnea on exertion Cardiovascular: no symptoms reported Gastrointestinal: other ( PEG tube site discomfort) Genitourinary: no symptoms reported Musculoskeletal: back pain, joint pain Skin: no symptoms reported Psychiatric/Neurological: Anxiety, Depressed All Other Systems Reviewed Negative Unless Noted: Yes Physical Exam Physical Exam Vital Signs Capillary Refill : Height, Weight, BMI Height: 4'11.00" Weight: 151lbs. 14.8oz. [id number]; 27.00 BMI Method:Stated General Appearance: No Apparent Distress, WD/WN, Chronically ill, Obese Eyes: Bilateral Eye Normal Inspection, Bilateral Eye PERRL HEENT: PERRL/EOMI, TMs Normal, Normal ENT Inspection, Pharynx Normal Neck: Full Range of Motion, Normal Inspection, Non Tender, Supple, Carotid Bruit Respiratory: Chest Non Tender, Lungs Clear, Normal Breath Sounds, No Accessory Muscle Use, No Respiratory Distress Cardiovascular: Regular Rate, Rhythm, No Edema, No Gallop, No JVD, No Murmur, Normal Peripheral Pulses Gastrointestinal: Normal Bowel Sounds, No Organomegaly, No Pulsatile Mass, Non Tender, Soft Back: Normal Inspection, No CVA Tenderness, No Vertebral Tenderness Extremity: Normal Capillary Refill, Normal Inspection, Normal Range of Motion, Non Tender, No Calf Tenderness, No Pedal Edema Neurologic/Psychiatric: Alert, Oriented x3, Normal Mood/Affect, Aphasia, Depressed Affect, Facial Droop ( right), Motor Weakness ( right-sided) Skin: Normal Color, Warm/Dry Lymphatic: No Adenopathy PM&R Medical Assessment & Plan REHAB/MEDICAL ASSESSMENT AND PLAN: REHAB IMPAIRMENT GROUP: Right body involvement ( left brain) ETIOLOGIC DIAGNOSIS: acute ischemic strokes The comorbidities that impact the patients function and/or functional outcome by: aphasia, dysphagia requiring PEG tube placement, severe deficits, advanced age, recent coronary stents REHAB PLAN: The patient is being admitted to our comprehensive inpatient rehabilitation facility and can tolerate the intensity of service consisting of at least: 180 minutes of therapy a day, 5 out of 7 days a week Rehab treatment will consist of: PT and OT will work on returning back to baseline function with use of assistive devices in order to gain independence and stamina and speech therapy will help with communication due to aphasia The patient/family has a good understanding of our discharge process and will benefit from an interdisciplinary inpatient rehabilitation program. The patient has potential to make improvement and is in need of at least two of the following multidisciplinary therapies including but not limited to physical, occupational, speech, and prosthetics and orthotics. Additionally the patient will need services from respiratory, nutritional services, wound care, psychology, etc. (Customize this to each patient). Given the patients complex condition and risk of further medical complications, rehabilitation services cannot be safely or effectively provided at a lower level of care such as a group home facility. BARRIERS TO DISCHARGE: severe residual deficits from CVA ESTIMATED LOS: 14 days DISPOSITION: home RELEVANT CHANGES SINCE PREADMISSION SCREENING: I have compared the patients medical and functional status at the time of the preadmission screening and there are: no changes PROGNOSIS: guarded REHABILITATION GOALS: 1. [PT and OT will work on returning back to baseline function with use of assistive devices in order to gain independence and stamina and speech therapy will help with communication due to aphasia All the above goals were reviewed with the patient and he/she is in agreement. By signing this document, I acknowledge that I have personally performed a full physical examination on this patient within 24 hours of admission to this inpatient rehabilitation facility and have determined the patient to be able to tolerate the above course of treatment at an intensive level for a reasonable period of time. I will be completing a detailed individualized Plan of Care for this patient by day #4 of the patients stay based upon the Preadmission Screen, the Post-Admission Evaluation, and the therapy evaluations. Admission Dx/Comorbidities: (1) CVA (cerebral vascular accident) ICD Codes: I63.9 - Cerebral infarction, unspecified Assessment/Plan Assessment and Plan Assess & Plan/Chief Complaint Assessment: Bilateral ischemic strokes status post thrombolytics with residual aphasia and dysphagia status post PEG tube placement Severe multivessel CAD status post recent high risk intervention at on Recent NSTEMI HTN Hx CAD w/ CABG: CABG done in 2011 COPD: O2 dependent Hypercalcemia: obtain PTH, spot urine calcium, ionized calcium, vitamin D levels Angina: none currently, nitro PRN Hypomagnesemia: started on Mg replacement, continue to monitor, replace as needed HLD: resume home statin GERD: currently asymptomatic, antacids as needed Plan: PT and OT Lovenox for DVT prophylaxis PEG tube feeding Speech therapy LORENA OSULLIVAN DO Nov 30, 2022 11:53
[2022-11-30] MEDS ORDERED: ONDANSETRON 4 MG ORAL DISSOLVE TABLET PO PRN (12:00)
[2022-11-30] MEDS ORDERED: CALCIUM CARBONATE 500 MG CHEW TABLET PO PRN (12:00)
[2022-11-30] MEDS ORDERED: MELATONIN 3 MG TABLET PO PRN (12:00)
[2022-11-30] MEDS ORDERED: Sodium Phosphate/Sodium Biphosphate ADULT enema PR PRN (12:00)
[2022-11-30] MEDS ORDERED: DOCUSATE SODIUM 100 MG CAPSULE PO PRN (12:00)
[2022-11-30] MEDS ORDERED: BISACODYL 10 MG SUPPOSITORY PR PRN (12:00)
[2022-11-30] MEDS ORDERED: LOPERAMIDE 2 MG CAPSULE PO PRN (12:00)
[2022-11-30] MEDS ORDERED: diphenhydrAMINE 25 MG TABLET PO PRN (12:00)
[2022-11-30] MEDS ORDERED: guaiFENesin/CODEINE 10ML UDC PO PRN (12:00)
[2022-11-30] MEDS ORDERED: LACTULOSE SYRUP 10GM/15ML 30ML UDC PO PRN (12:00)
[2022-11-30] MEDS ORDERED: ALPRAZolam 0.25 MG TABLET PO PRN (12:00)
[2022-11-30] MEDS ORDERED: CLONIDINE 0.2 MG TD SCH (12:30)
[2022-11-30] MEDS ORDERED: ATOR80TA76 NG (13:29)
[2022-11-30] MEDS ORDERED: CLON1PAT34 TD (13:29)
[2022-11-30] MEDS ORDERED: TPR25T PO (13:29)
[2022-11-30] MEDS ORDERED: DOCU50LI11 PO (13:29)
[2022-11-30] MEDS ORDERED: LISI20TA26 PO (13:29)
[2022-11-30] MEDS ORDERED: CARV25TA NG (13:29)
[2022-11-30] MEDS ORDERED: FAMO40SU5 FEEDING (13:29)
[2022-11-30] MEDS ORDERED: FERR-74 PO (13:29)
[2022-11-30] MEDS ORDERED: CLN.1T PO (13:29)
[2022-11-30] MEDS ORDERED: NITR0.4T39 SL (13:29)
[2022-11-30] MEDS ORDERED: CHOL10004 PO (13:29)
[2022-11-30] MEDS ORDERED: CLOP75TA28 PO (13:29)
[2022-11-30] MEDS ORDERED: DICY-11 PO (13:36)
--- OUTSIDE RECORDS SUMMARY | 2022-11-30 14:11 | XMS REPORT | Clinical Summary ---
Author Author [facility] Organization [facility] Address Unknown Phone Unavailable Care Team Providers Care Pillowcase Cutter Name Role Phone Whitney Burnham RN PCP Unavailable Source Comments Some departments are not documenting in the electronic medical record. If you do not see the information that you expected, contact Release of Information in the Health Information Management department at [phone] for further assistance in locating additional records.[facility] Allergies Active Allergy Reactions Criticality Noted Date Comments Amlodipine RASH High 11/23/2022 Sulfa (Sulfonamide Antibiotics) UNKNOWN Low 10/31 Medications Medication Sig Dispensed Refills Start Date End Date Status VENTOLIN HFA 90 mcg/actuation inhalerIndicati ons:chronic obstructive pulmonary disease Inhale two puffs by mouth into the lungs every 4 hours as needed for Wheezing or Shortness of Breath. Indications: chronic obstructive pulmonary disease 0 Active lisinopriL (ZESTRIL) 20 mg tabletIndicatio ns:hypertension Take two tablets by mouth daily. Indications: high blood pressure 0 Active meloxicam (MOBIC) 15 mg tablet Take one tablet by mouth daily. 0 Active aspirin EC (ASPIR-LOW) 81 mg tablet Take one tablet by mouth daily. 0 Active hydrALAZINE (APRESOLINE) 25 mg tabletIndicatio ns:hypertension Take two tablets by mouth every 8 hours. Indications: high blood pressure 0 Active spironolactone (ALDACTONE) 50 mg tablet Take one tablet by mouth daily. Take with food. 0 Active clopiDOGreL (PLAVIX) 75 mg tabletIndicatio ns:thrombosis prevention after PCI Take one tablet by mouth daily. Indications: blood clot prevention following percutaneous coronary intervention 0 Active CHOLEcalciferoL (vitamin D3) 1,000 units tablet Take five tablets by mouth daily. 0 Active cloNIDine (QZUWGZKW-CNS-3 ) 0.2 mg/day patch Apply one patch to top of skin as directed every 7 days. 0 Active cloNIDine HCL (CATAPRES) 0.1 mg tablet Take one tablet by mouth every 4 hours as needed (SBP >160). 0 Active dicyclomine (BENTYL) 10 mg capsule Take one capsule to two capsules by mouth four times daily. 0 Active nitroglycerin (NITROSTAT) 0.[address] one tablet under tongue every 5 minutes as needed for Chest Pain. Max of 3 tablets, call 911. 0 Active topiramate (TOPAMAX) 25 mg tablet Take one tablet by mouth daily. 0 Active diazePAM (VALIUM) 5 mg tabletIndicatio ns:anxiety Take one tablet by mouth three times daily as needed for Anxiety. Indications: anxious 0 3 Active carvediloL (COREG) 25 mg tabletIndicatio ns:hypertension one tablet by Per NG tube route twice daily with meals. Take with food. Indications: high blood pressure 180 tablet 0 3 Active atorvastatin (LIPITOR) 80 mg tablet one tablet by Per NG tube route at bedtime daily. 90 tablet 0 3 Active famotidine (PEPCID) 40 mg/5 mL (8 mg/mL) oral suspension Take 2.5 mL via feeding tube twice daily. 50 mL 0 3 Active ferrous sulfate (FEOSOL) 325 mg (65 mg iron) tablet Take one tablet by mouth daily. Take on an empty stomach at least 1 hour before or 2 hours after food. 90 tablet 3 3 Active docusate sodium (COLACE) 50 mg/5 mL oral solution Take 10 mL by mouth twice daily. 0 3 Active pregabalin (LYRICA) 25 mg capsule Take one capsule via feeding tube three times daily. 0 3 Active cephalexin (KEFLEX) 500 mg capsule Take one capsule by mouth four times daily. 0 12/01/19 23 Discontinued diazePAM (VALIUM) 5 mg tabletIndicatio ns:anxiety Take one tablet by mouth three times daily as needed for Anxiety. Indications: anxious 0 12/01/19 23 Discontinued(Reo rder) simvastatin (ZOCOR) 40 mg tabletIndicatio ns:hyperlipidem ia Take one tablet by mouth at bedtime daily. Indications: excessive fat in the blood 0 12/01/19 Discontinued carvediloL (COREG) 12.5 mg tabletIndicatio ns:hypertension Take two tablets by mouth twice daily with meals. Take with food. Indications: high blood pressure 0 12/01/19 Discontinued cloNIDine (IHEFUUZA-JFA-3 ) 0.3 mg/day patch Apply one patch to top of skin as directed every 28 days. 0 12/01/19 Discontinued pregabalin (LYRICA) 25 mg capsule Take one capsule by mouth three times daily. 0 12/01/19 Discontinued(Reo rder) carvediloL (COREG) 6.25 mg tablet Take one tablet by mouth twice daily with meals. Take with food. 0 12/01/19 Discontinued carvediloL (COREG) 25 mg tabletIndicatio ns:hypertension one tablet by Per NG tube route twice daily with meals. Take with food. Indications: high blood pressure 180 tablet 0 3 12/01/19 Discontinued(Reo rder) pregabalin (LYRICA) 25 mg capsule Take one capsule by mouth three times daily. 0 3 12/01/19 Discontinued(Reo rder) atorvastatin (LIPITOR) 80 mg tablet one tablet by Per NG tube route at bedtime daily. 90 tablet 0 3 12/01/19 Discontinued(Reo rder) famotidine (PEPCID) 40 mg/5 mL (8 mg/mL) oral suspension Take 2.5 mL via feeding tube twice daily. 50 mL 0 3 12/01/19 Discontinued(Reo rder) ferrous sulfate (FEOSOL) 325 mg (65 mg iron) tablet Take one tablet by mouth daily. Take on an empty stomach at least 1 hour before or 2 hours after food. 90 tablet 3 3 12/01/19 Discontinued(Reo rder) pregabalin (LYRICA) 25 mg capsule Take one capsule by mouth three times daily. 0 3 12/01/19 Discontinued(Reo rder) Active Problems Problem Noted Date Diagnosed Date PEG (percutaneous endoscopic gastrostomy) status 11/28/2022 Anemia in other chronic diseases classified else where 11/28/2022 HTN (hypertension) 11/22/2022 PAD (peripheral artery disease) 11/22/2022 CAD (coronary artery disease) 11/22/2022 COPD (chronic obstructive pulmonary disease) Troponin level elevated 11/22/2022 Tissue plasminogen activator (tPA) administered at other facility within 24 hours before current admission 11/22/2022 Acute ischemic stroke 11/22/2022 NSTEMI (non-ST elevated myocardial infarction) 0 11/18/2022 Resolved Problems Problem Noted Date Diagnosed Date Resolved Date Acute renal insufficiency 11/28/2022 Leukocytosis 11/23/2022 11/28/2022 Encounters Date Type Department Care Team Description 11/30/2022 1:17 PM CDT Hospital Encounter Cardiovascular Medicine: [address], [address] [place] [address] Anita Layton DO Arrived 11/30/2022 Travel 11/29/2022 5:30 AM CDT Hospital Encounter Vascular Access Team: [address], [address] [place] [address] Topher Moy MD 11/28/2022 5:45 AM CDT Hospital Encounter Vascular Access Team: [address], [address] [place] [address] Topher Moy MD 11/27/2022 5:20 PM CDT Anesthesia Event Interventional Radiology: [address], [address] [place] [address] Sathish Farris MD McCartney, Michael L, MD 11/25/2022 12:46 PM CDT Anesthesia Event Cardiovascular Medicine: [address], [address] [place] [address] Shyla Koehler DO 11/25/2022 6:43 AM CDT - 11/25/2022 11:59 PM CDT Hospital Encounter Cardiovascular Medicine: [address], [address] [place] [address] Marcus Villarreal, Naheed Garner RN Discharge Disposition: Home or Self Care 11/24/2022 Documentation Cardiovascular Medicine: [place] [facility] [address] [facility], [address] [place] [address] Maria C Man, JONELLE CLARISSE Pre-Procedure Instuctions 11/23/2022 10:00 PM CDT Anesthesia Event Anesthesiology: [address] [address], [address] [place] [address] Jared Harrington MD 11/23/2022 1:04 AM CDT - 11/23/2022 11:59 PM CDT Hospital Encounter Vascular Access Team: [address] [address], [address] [place] [address] Dontrell Bender, [employer]LLING [employer] Discharge Disposition: Home or Self Care 11/22/2022 10:44 PM CDT Anesthesia Event Interventional Radiology: [address] [place] [phone] Jared Harrington MD Hoelscher, Heather M, CRNA 11/22/2022 10:42 PM CDT - 11/30/2022 11:38 AM CDT Hospital Encounter Patient Care Unit CA6: [id number] [facility] [address] [place] [address] Yanni Morrison MD Carpenter, Kyle G, Laura Zavaleta MD Rosterman, Lee R, Topher Ndiaye MD Barkley, Tiffany T, DO Acute ischemic stroke (HCC) Discharge Disposition: Rehab Facility (Not TUS) 11/22/2022 12:15 AM CDT - 11/22/2022 10:41 PM CDT Hospital Encounter Imaging: [address] [address], [address] [place] [address] Discharge Disposition: Home or Self Care 11/22/2022 12:10 AM CDT - 11/22/2022 12:14 AM CDT Hospital Encounter Imaging: [address], [address] [place] [address] Discharge Disposition: Home or Self Care 11/22/2022 12:05 AM CDT - 11/22/2022 12:09 AM CDT Hospital Encounter Imaging: [address], [address] [place] [address] Discharge Disposition: Home or Self Care 11/22/2022 - 11/22/2022 12:04 AM CDT Hospital Encounter Imaging: [address] [address], [address] [place] [address] Discharge Disposition: Home or Self Care from Last 3 Months Surgical History Surgery Date Site/Laterality Comments CORONARY STENT PLACEMENT 11/18/2022 HX CORONARY ARTERY BYPASS GRAFT 03/01/2011 - 02/29/2012 Medical History Medical History Date Comments HTN (hypertension) PAD (peripheral artery disease) (HCC) CAD (coronary artery disease) NSTEMI (non-ST elevated myocardial infarction) ( HCC) COPD (chronic obstructive pulmonary disease) (HC C) Social History Tobacco Use Types Packs/Day Years Used Date Smoking Tobacco: Former Cigarettes 2 1 960 - 11/02/2022 Smokeless Tobacco: Never Tobacco Cessation:Counseling Given: No Alcohol Use Standard Drinks/Week Comments Never 0 (1 standard drink = 0.6 oz pur e alcohol) Alcohol Use Answer Date Recorded Alcohol Use No Male: 9+ ounces (15+ Standard Drinks) per week T hreshold Not on file Female: 4.8+ ounces (8+ Standard Drinks) per wee k Threshold 0 Sex and Gender Information Value Date Recorded Sex Assigned at Not on file Gender Identity Not on file Sexual Orientation Not on file Obstetrics History Last Filed Vital Signs Vital Sign Reading Time Taken Comments Blood Pressure 142/61 11/30/2022 8:38 AM CDT Pulse 69 11/30/2022 8:38 AM CDT Temperature 36.5 °C (97.7 °F) 11/30/2022 6:02 AM C DT Respiratory Rate - - Oxygen Saturation 99% 11/30/2022 6:02 AM CDT Inhaled Oxygen Concentration - - Weight 63.1 kg (139 lb 1.8 oz) 11/30/2022 5:00 AM CDT Height 149.9 cm (4' 11") 11/25/2022 7:59 PM CDT Body Mass Index 28.1 11/25/2022 7:59 PM CDT Plan of Treatment Health Maintenance Due Date Last Done Comments MEDICARE ANNUAL WELLNESS VISIT 1945 COVID-19 VACCINE (#1) 03[birth year]08/1946 DTAP/TDAP VACCINES (1 - Tdap) 1964 HEPATITIS C SCREENING 1964 PHYSICAL (COMPREHENSIVE) EXAM 1964 SHINGLES RECOMBINANT VACCINE (1 of 2) 1996 OSTEOPOROSIS SCREENING/MONITORING 09/06/2011 PNEUMOCOCCAL VACCINE 65+ YRS (2 - PCV) 01/13/2015, 11/22/2013 DEPRESSION SCREENING 03/01/2022 INFLUENZA VACCINE (#1) 2022 01/13/2014 ADVANCE CARE PLANNING DISCUS ABDULLAHI AND DOCUMENTATION Completed 11/23/2022 Goals Goal Patient Goal Type Associated Problems Recent Progress Patient-Stated? Author [facility] On track(11/27/19 11:13 AM CDT) No Mando Johns, chief customer officer Procedure Name Priority Date/Time Associated Diagnosis Comments CT ABD/PELV WO CONTRAST DILEEP 11/30/2022 10:20 AM CDT ECG 12-LEAD STAT 11/30/2022 8:30 AM CDT HIGH SENSITIVITY TROPONIN I 0 HOUR Add on 11/30/2022 7:10 AM CDT PHOSPHORUS Routine 11/30/2022 7:10 AM CDT MAGNESIUM Routine 11/30/2022 7:10 AM CDT COMPREHENSIVE METABOLIC PANEL Routine 11/30/2022 7:10 AM CDT CBC Routine 11/30/2022 7:10 AM CDT ABDOMEN AP/LAT TUBE CHECK W/ CONT Routine 11/29/2022 11:09 AM CDT ABDOMEN 1 VIEW Routine 11/29/2022 8:12 AM CDT HC PHOSPHOROUS, SERUM Routine 11/29/2022 5:32 AM CDT HC MAGNESIUM Routine 11/29/2022 5:32 AM CDT HC COMPREHENSIVE METABOLIC PANEL Routine 11/29/2022 5:32 AM CDT HC CBC,AUTOMATED Routine 11/29/2022 5:3 2 AM CDT CONSULT VASCULAR ACCESS TEAM Routine 11/29/2022 5:15 AM CDT HC IRON BINDING CAPACITY + %SAT Routine 11/28/2022 3:48 PM CDT HC PHOSPHOROUS, SERUM Routine 11/28/2022 3:48 PM CDT HC MAGNESIUM Routine 11/28/2022 3:48 PM CDT HC COMPREHENSIVE METABOLIC PANEL Routine 11/28/2022 3:48 PM CDT HC CBC,AUTOMATED Routine 11/28/2022 3:4 8 PM CDT CONSULT VASCULAR ACCESS TEAM Routine 11/28/2022 3:55 AM CDT CTA NECK WO/W CONT STAT 11/27/2022 1 :40 PM CDT CTA HEAD WO/W CONT STAT 11/27/2022 1 :[address] HEAD WO CONTRAST STAT 11/27/2022 1:30 PM CDT HC PHOSPHOROUS, SERUM Routine 11/27/2022 6:08 AM CDT HC MAGNESIUM Routine 11/27/2022 6:08 AM CDT HC CBC W/ AUTOMATED DIFF Routine 11/27/2022 6:08 AM CDT HC BASIC METABOLIC PANEL Routine 11/27/2022 6:[address] HEAD WO CONTRAST Routine 11/26/2022 1 2:34 PM CDT SWALLOW MOTION SERIES Routine 11/26/2022 9:21 AM CDT HC PHOSPHOROUS, SERUM Routine 11/26/2022 5:00 AM CDT HC MAGNESIUM Routine 11/26/2022 5:00 AM CDT HC CBC W/ AUTOMATED DIFF Routine 11/26/2022 5:00 AM CDT HC BASIC METABOLIC PANEL Routine 11/26/2022 5:00 AM CDT FEEDING TUBE PLCMNT (ABD/CHEST LMTD) Routine 11/25/2022 10:51 PM CDT CLARISSE W/O CONTRAST & W/ 3D ON CART Routine 11/25/2022 1:39 PM CDT HC PHOSPHOROUS, SERUM Routine 11/25/2022 2:53 AM CDT HC MAGNESIUM Routine 11/25/2022 2:53 AM CDT HC CBC W/ AUTOMATED DIFF Routine 11/25/2022 2:53 AM CDT HC BASIC METABOLIC PANEL Routine 11/25/2022 2:53 AM CDT FEEDING TUBE PLCMNT (ABD/CHEST LMTD) Routine 11/24/2022 4:13 AM CDT HC PHOSPHOROUS, SERUM Routine 11/24/2022 3:46 AM CDT HC MAGNESIUM Routine 11/24/2022 3:46 AM CDT HC CBC W/ AUTOMATED DIFF Routine 11/24/2022 3:46 AM CDT HC BASIC METABOLIC PANEL Routine 11/24/2022 3:46 AM CDT FEEDING TUBE PLCMNT (ABD/CHEST LMTD) Routine 11/23/2022 11:34 AM CDT ECG 12-LEAD STAT 11/23/2022 10:54 AM CDT HC HI SENS TNI 4 HR STAT 11/23/2022 9:05 AM CDT 2D + DOPPLER ECHO W/ CONTRAST Routine 11/23/2022 8:06 AM CDT HC HIGH SENSITIVITY TROPONIN I 2 HOUR 11/23/2022 5:08 AM CDT HC PHOSPHOROUS, SERUM Routine 11/23/2022 5:08 AM CDT HC MAGNESIUM Routine 11/23/2022 5:08 AM CDT HC CBC W/ AUTOMATED DIFF Routine 11/23/2022 5:08 AM CDT HC COMPREHENSIVE METABOLIC PANEL Routine 11/23/2022 5:08 AM CDT MRI HEAD WO CONTRAST DILEEP 11/23/2022 4:41 AM CDT URINALYSIS MICROSCOPIC REFLEX TO CULTURE Routine 11/23/2022 2:07 AM CDT HC URINALYSIS UAR Routine 11/23/2022 2: 07 AM CDT HC HIGH SENSITIVITY TROPONIN I 0 HOUR 11/23/2022 1:14 AM CDT HC LIPID-5:CHOL/TRG/HDL/L DL+VLDL Routine 11/23/2022 1:14 AM CDT HC PHOSPHOROUS, SERUM STAT 11/23/2022 1:14 AM CDT HC MAGNESIUM STAT 11/23/2022 1:14 AM CDT HC HEMOGLOBIN A1C STAT 11/23/2022 1: 14 AM CDT COMPREHENSIVE METABOLIC PANEL STAT 11/23/2022 1:14 AM CDT HC CBC W/ AUTOMATED DIFF STAT 11/23/2022 1:14 AM CDT HC CALCIUM IONIZED STAT 11/23/2022 1 :14 AM CDT CONSULT VASCULAR ACCESS TEAM Routine 11/23/2022 12:20 AM CDT IR CEREBRAL ARTERIOGRAM DIAGNOSTIC WITH INTERVENTION STAT 11/22/2022 11:30 PM CDT POC GLUCOSE 11/22/2022 11:[address] HEAD EXTERNAL IMAGING Routine 11/22/2022 12:15 AM CDT CTA HEAD EXTERNAL IMAGING Routine 11/22/2022 12:10 AM CDT CTA HEAD EXTERNAL IMAGING Routine 11/22/2022 12:05 AM CDT CTA HEAD EXTERNAL IMAGING Routine 11/22/2022 12:00 AM CDT TELEMETRY STRIPS-SCAN 11/22/2022 12:00 AM CDT TELEMETRY STRIPS-SCAN 11/22/2022 12:00 AM CDT TELEMETRY STRIPS-SCAN 11/22/2022 12:00 AM CDT TELEMETRY STRIPS-SCAN 11/22/2022 12:00 AM CDT TELEMETRY STRIPS-SCAN 11/22/2022 12:00 AM CDT TELEMETRY STRIPS-SCAN 11/22/2022 12:00 AM CDT TELEMETRY STRIPS-SCAN 11/22/2022 12:00 AM CDT TELEMETRY STRIPS-SCAN 11/22/2022 12:00 AM CDT TELEMETRY STRIPS-SCAN 11/22/2022 12:00 AM CDT TELEMETRY STRIPS-SCAN 11/22/2022 12:00 AM CDT TELEMETRY STRIPS-SCAN 11/22/2022 12:00 AM CDT TELEMETRY STRIPS-SCAN 11/22/2022 12:00 AM CDT TELEMETRY STRIPS-SCAN 11/22/2022 12:00 AM CDT TELEMETRY STRIPS-SCAN 11/22/2022 12:00 AM CDT TELEMETRY STRIPS-SCAN 11/22/2022 12:00 AM CDT TELEMETRY STRIPS-SCAN 11/22/2022 12:00 AM CDT TELEMETRY STRIPS-SCAN 11/22/2022 12:00 AM CDT TELEMETRY STRIPS-SCAN 11/22/2022 12:00 AM CDT from Last 3 Months Results * CT ABD/PELV WO CONTRAST (11/30/2022 10:20 AM CDT) Anatomical Region Laterality Modality CHEST/AB/PEL Computed Tomogra phy 11/30/2022 10:2 6 AM CDT Impressions 11/30/2022 10:33 AM CDT 1. Indwelling percutaneous gastrostomy tube. No bowel obstruction, ascites, or abdominopelvic hematoma. 2. Delayed enhancement the kidneys from a prior exam, likely renal dysfunction. 3. Small bilateral pleural effusions with adjacent consolidation, likely atelectasis. Finalized by Neyda Crabtree M.D. on 11/30/2022 10:33 AM. Dictated by Neyda Crabtree M.D. on 11/30/2022 10:26 AM. Narrative 11/30/2022 10:[address] ABDOMEN AND PELVIS Clinical Indication: Abdominal pain and down trending hemoglobin. Acute ischemic stroke. Technique: Multiple contiguous axial CT images were obtained through the abdomen and pelvis without IV contrast. Post processing coronal and sagittal reconstruction images were made from the axial images. IV contrast: None. Bowel contrast: None Comparison: None. FINDINGS: Limited evaluation without the use of IV contrast which includes the viscera and vasculature. Lower Thorax: Small bilateral pleural effusions, greater on the right. Adjacent right basilar consolidation. Coronary artery and mitral valve annular calcification Liver and Biliary system: Normal sized liver. No calcified gallstones. Spleen: Unremarkable. Adrenal Glands and Kidneys: Unremarkable right adrenal gland. Mild nodular thickening of the left adrenal gland. Delayed enhancement of the kidneys from a prior exam. No hydronephrosis or renal stone. Pancreas and Retroperitoneum: Mild pancreatic atrophy. No retroperitoneal lymphadenopathy or hematoma. Aorta and Major Vessels: Normal caliber abdominal aorta and iliac arteries with extensive calcific atherosclerotic plaque. Bowel, Mesentery and Peritoneal space: Indwelling percutaneous gastrostomy tube. No dilated loops of bowel. Oral contrast from a swallow exam opacifies the colon. Normal appendix. No ascites or free air. Pelvis: The bladder is mildly distended. The uterus is absent. No pelvic lymphadenopathy. Abdominal wall and Osseous Structures: Median sternotomy wires. Mild thoracolumbar spondylosis. Procedure Note Neyda Crabtree MD - 11/30/2022 CT ABDOMEN AND PELVIS Clinical Indication: Abdominal pain and down trending hemoglobin. Acuteischemic stroke. Technique: Multiple contiguous axial CT images were obtained through theabdomen and pelvis without IV contrast. Post processing coronal andsagittal reconstruction images were made from the axial images. IV contrast: None. Bowel contrast: None Comparison: None. FINDINGS: Limited evaluation without the use of IV contrast which includes theviscera and vasculature. Lower Thorax: Small bilateral pleural effusions, greater on the right.Adjacent right basilar consolidation. Coronary artery and mitral valveannular calcification Liver and Biliary system: Normal sized liver. No calcified gallstones. Spleen: Unremarkable. Adrenal Glands and Kidneys: Unremarkable right adrenal gland. Mild nodularthickening of the left adrenal gland. Delayed enhancement of the kidneysfrom a prior exam. No hydronephrosis or renal stone. Pancreas and Retroperitoneum: Mild pancreatic atrophy. No retroperitoneallymphadenopathy or hematoma. Aorta and Major Vessels: Normal caliber abdominal aorta and iliac arterieswith extensive calcific atherosclerotic plaque. Bowel, Mesentery and Peritoneal space: Indwelling percutaneous gastrostomytube. No dilated loops of bowel. Oral contrast from a swallow examopacifies the colon. Normal appendix. No ascites or free air. Pelvis: The bladder is mildly distended. The uterus is absent. No pelviclymphadenopathy. Abdominal wall and Osseous Structures: Median sternotomy wires. Mildthoracolumbar spondylosis. IMPRESSION 1. Indwelling percutaneous gastrostomy tube. No bowel obstruction,ascites, or abdominopelvic hematoma. 2. Delayed enhancement the kidneys from a prior exam, likely renaldysfunction. 3. Small bilateral pleural effusions with adjacent consolidation, likelyatelectasis. Finalized by Neyda Crabtree M.D. on 11/30/2022 10:33 AM. Dictated byNeyda Crabtree M.D. on 11/30/2022 10:26 AM. Anita Layton DO CT ORDERABLES * ECG 12-LEAD (11/30/2022 8:30 AM CDT) VENTRICULAR RATE 70 BPM GE MUSE P-R INTERVAL 166 ms GE MUSE QRS DURATION 94 ms GE MUSE Q-T INTERVAL 426 ms GE MUSE QTC CALCULATION (BAZETT) 460 ms GE MUSE P AXIS 48 degrees GE MUSE R AXIS 81 degrees GE MUSE T AXIS 226 degrees GE MUSE 11/30/2022 8:3 0 AM CDT 11/30/2022 8:50 AM CDT Impressions GE MUSE - 11/30/2022 8:50 AM CDT Normal sinus rhythm ST & Marked T wave abnormality, consider anterolateral ischemia Abnormal ECG When compared with ECG of 23-NOV-2022 10:54, ST now depressed in Anterior leads T wave inversion more evident in Anterolateral leads Confirmed by Mata Morales ([id number]) on 11/30/2022 8:50:48 AM Narrative Procedure Note Mata Morales MD - 11/30/2022 IMPRESSION Normal sinus rhythm ST & Marked T wave abnormality, consider anterolateral ischemia Abnormal ECG When compared with ECG of 23-NOV-2022 10:54, ST now depressed in Anterior leads T wave inversion more evident in Anterolateral leads Confirmed by Mata Morales ([id number]) on 11/30/2022 8:50:48 AM Topher Moy MD ECG ORDERABLES Performing Organization Address City/[facility]/ZIP Co de Phone Number [employer] MUSE * (ABNORMAL) HIGH SENSITIVITY TROPONIN I 0 HOUR (11/30/2022 7:10 AM CDT) Only the most recent of2 resultswithin the time period is included. hs Troponin I 0 Hour 146(H) <12 ng/L 11/30/2022 8:56 AM CDT [facility] DEPT PATH AND LAB MEDICINE 11/30/2022 7:1 0 AM CDT 11/30/2022 7:11 AM CDT Garrison Tee DO LABORATORY ORDERABLE S [facility] [address] [place] [address], [place] * (ABNORMAL) CBC (11/30/2022 7:10 AM CDT) Only the most recent of3 resultswithin the time period is included. White Blood Cells 7.8 4.5 - 11.0 K/UL 11/30/2022 7:31 AM CDT [facility] RBC 2.76(L) 4.0 - 5.0 M/UL 11/30/2022 7:31 AM CDT [facility] DEPT PATH AND LAB MEDICINE Hemoglobin 8.0(L) 12.0 - 15.0 GM/DL 11/30/2022 7:31 AM CDT [facility] DEPT PATH AND LAB MEDICINE Hematocrit 24.9(L) 36 - 45 % 11/30/2022 7:31 AM CDT [facility] DEPT PATH AND LAB MEDICINE MCV 90.1 80 - 100 FL 11/30/2022 7:31 AM CDT [facility] DEPT PATH AND LAB MEDICINE MCH 28.9 26 - 34 PG 11/30/2022 7:31 AM CDT [facility] DEPT PATH AND LAB MEDICINE MCHC 32.1 32.0 - 36.0 G/DL 11/30/2022 7:31 AM CDT [facility] DEPT PATH AND LAB MEDICINE RDW 13.4 11 - 15 % 11/30/2022 7:31 AM CDT [facility] DEPT PATH AND LAB MEDICINE Platelet Count 214 150 - 400 K/UL 11/30/2022 7:31 AM CDT [facility] DEPT PATH AND LAB MEDICINE MPV 10.1 7 - 11 FL 11/30/2022 7:31 AM CDT [facility] DEPT PATH AND LAB MEDICINE BLOOD / Unknown 11/30/2022 7:10 AM CDT 11/30/2022 7:11 AM CDT Topher Moy MD [facility] [address] [place] [address], * PHOSPHORUS (11/30/2022 7:10 AM CDT) Only the most recent of9 resultswithin the time period is included. Phosphorus 2.9 2.0 - 4.5 MG/DL 11/30/2022 7:58 AM CDT [facility] DEPT PATH AND LAB MEDICINE BLOOD / Unknown 11/30/2022 7:10 AM CDT 11/30/2022 7:11 AM CDT Topher Moy MD LABORATORY ORDERABLE S Performing Organization Address [facility]/ZIP Co de Phone Number [facility] [address] [place] [address], * MAGNESIUM (11/30/2022 7:10 AM CDT) Only the most recent of9 resultswithin the time period is included. Magnesium 1.7 1.6 - 2.6 mg/dL 11/30/2022 7:58 AM CDT [facility] DEPT PATH AND LAB MEDICINE BLOOD / Unknown 11/30/2022 7:10 AM CDT 11/30/2022 7:11 AM CDT Topher Moy MD LABORATORY ORDERABLE S Performing Organization Address [facility] Co de Phone Number [facility] [facility] [address] [place] [address], * (ABNORMAL) COMPREHENSIVE METABOLIC PANEL (11/30/2022 7:10 AM CDT) Only the most recent of4 resultswithin the time period is included. Sodium 135(L) 137 - 147 MMOL/L 11/30/2022 7:58 AM CDT [facility] Potassium 4.1 3.5 - 5.1 MMOL/L 11/30/2022 7:58 AM CDT [facility] Chloride 94(L) 98 - 110 MMOL/L 11/30/2022 7:58 AM CDT [facility] Glucose 105(H) 70 - 100 MG/DL 11/30/2022 7:58 AM CDT [facility] Blood Urea Nitrogen 24 7 - 25 MG/DL 11/30/2022 7:58 AM CDT [facility] Creatinine 0.92 0.4 - 1.00 MG/DL 11/30/2022 7:58 AM CDT [facility] Calcium 10.1 8.5 - 10.6 MG/DL 11/30/2022 7:58 AM CDT [facility] Total Protein 6.0 6.0 - 8.0 G/DL 11/30/2022 7:58 AM CDT [facility] DE[facility] PATH AND LAB MEDICINE Total Bilirubin 0.3 0.3 - 1.2 MG/DL 11/30/2022 7:58 AM CDT [facility] Albumin 3.3(L) 3.5 - 5.0 G/DL 11/30/2022 7:58 AM CDT [facility] Alk Phosphatase 67 25 - 110 U/L 11/30/2022 7:58 AM CDT [facility] AST (SGOT) 17 7 - 40 U/L 11/30/2022 7:58 AM CDT [facility] DEPT PATH AND LAB MEDICINE CO2 34(H) 21 - 30 MMOL/L 11/30/2022 7:58 AM CDT [facility] ALT (SGPT) 12 7 - 56 U/L 11/30/2022 7:58 AM CDT [facility] DEPT PATH AND LAB MEDICINE Anion Gap 7 3 - 12 11/30/2022 7:58 AM CDT [facility] DEPT PATH AND LAB MEDICINE eGFR >60 >60 mL/min 11/30/2022 7:58 AM CDT [facility] DEPT PATH AND LAB MEDICINE Comment:eGFR calculated eliz matos the CKD-EPIcr_R equation BLOOD / Unknown 11/30/2022 7:10 AM CDT 11/30/2022 7:11 AM CDT Topher Moy MD LABORATORY ORDERABLE S [facility] [address] [place] [address], [place] * ABDOMEN AP/LAT TUBE CHECK W/ CONT (11/29/2022 11:09 AM CDT) Anatomical Region Laterality Modality ABD/PELVIS Computed Radiogr aphy 11/29/2022 11:2 2 AM CDT Impressions 11/29/2022 11:57 AM CDT Findings/impression: 2 supine frontal x-ray images of the abdomen and a single lateral x-ray image of the abdomen were obtained. High density bowel contrast continues to opacify large and small bowel. There is additional high density contrast now within the lumen of the stomach and duodenum. No dilated bowel loops. Percutaneous gastrostomy tube is present anteriorly within the left upper quadrant of the abdomen. By my electronic signature, I attest that I have personally reviewed the images for this examination and formulated the interpretations and opinions expressed in this report Finalized by Mich Marrufo M.D. on 11/29/2022 11:57 AM. Dictated by JOAQUÍN JUAREZ D.O. on 11/29/2022 11:22 AM. Narrative 11/29/2022 11:57 AM CDT Procedure: ABDOMEN AP/LAT TUBE CHECK W/ CONT Clinical Indication: G-tube placement. Comparison: X-ray November 29, 2022 at 7:58 AM Procedure Note Mich Marrufo MD - 11/29/2022 Procedure: ABDOMEN AP/LAT TUBE CHECK W/ CONT Clinical Indication: G-tube placement. Comparison: X-ray November 29, 2022 at 7:58 AM IMPRESSION Findings/impression: 2 supine frontal x-ray images of the abdomen and a single lateral x-rayimage of the abdomen were obtained. High density bowel contrast continuesto opacify large and small bowel. There is additional high densitycontrast now within the lumen of the stomach and duodenum. No dilatedbowel loops. Percutaneous gastrostomy tube is present anteriorly withinthe left upper quadrant of the abdomen. By my electronic signature, I attest that I have personally reviewed theimages for this examination and formulated the interpretations andopinions expressed in this report Finalized by Mich Marrufo M.D. on 11/29/2022 11:57 AM. Dictated by Ky MONTIEL on 11/29/2022 11:22 AM. Rosita Marcos [employer] [facility] [employer] [facility] ORDERABLES * ABDOMEN 1 VIEW (11/29/2022 8:12 AM CDT) Anatomical Region Laterality Modality ABD/PELVIS Computed Radiogr aphy 11/29/2022 8:3 9 AM CDT Impressions 11/29/2022 8:40 AM CDT Findings/Impression: 2 supine frontal x-ray images of the abdomen/pelvis were obtained. The nasogastric tube is been removed. A percutaneous gastrostomy tube is now projected over the left upper quadrant of the abdomen. There is high density bowel contrast throughout the majority of the colon and into the rectum that is either related to the swallow motion study from November 26, 2022 or the PEG tube placement on November 25, 2022. No dilated bowel loops are present. Finalized by Mich Marrufo M.D. on 11/29/2022 8:40 AM. Dictated by Mich Marrufo M.D. on 11/29/2022 8:39 AM. Narrative 11/29/2022 8:40 AM CDT ABDOMEN 1 VIEW Clinical Indication: Blood around PEG. Comparison: X-ray November 25, 2022 Procedure Note Mich Marrufo MD - 11/29/2022 ABDOMEN 1 VIEW Clinical Indication: Blood around PEG. Comparison: X-ray November 25, 2022 IMPRESSION Findings/Impression: 2 supine frontal x-ray images of the abdomen/pelvis were obtained. Thenasogastric tube is been removed. A percutaneous gastrostomy tube is nowprojected over the left upper quadrant of the abdomen. There is highdensity bowel contrast throughout the majority of the colon and into therectum that is either related to the swallow motion study from 2022 or the PEG tube placement on November 25, 2022. No dilated bowelloops are present. Finalized by Mich Marrufo M.D. on 11/29/2022 8:40 AM. Dictated by Mich Marrufo M.D. on 11/29/2022 8:39 AM. Topher Moy MD DIAGNOSTIC IMAGING O RDERABLES * (ABNORMAL) IRON + BINDING CAPACITY + %SAT+ FERRITIN (11/28/2022 3:48 PM CDT) Iron 26(L) 50 - 160 MCG/DL 11/28/2022 4:46 PM CDT [facility] Iron Binding-TIBC 294 270 - 380 MCG/DL 11/28/2022 4:46 PM CDT [facility] DEPT PATH AND LAB MEDICINE % Saturation 9(L) 28 - 42 % 11/28/2022 4:46 PM CDT [facility] Ferritin 123 10 - 200 NG/ML 11/28/2022 4:46 PM CDT [facility] BLOOD / Unknown 11/28/2022 3:48 PM CDT 11/28/2022 3:57 PM CDT Topher Moy MD LABORATORY ORDERABLE S Performing Organization Address City/State/[facility] Co de Phone Number [facility] [address] [place] [address], * CTA NECK WO/W CONT (11/27/2022 1:40 PM CDT) Anatomical Region Laterality Modality HEAD/NECK Computed Tomogra phy 11/27/2022 1:3 8 PM CDT Impressions 11/27/2022 2:44 PM CDT CTA head: 1. Severe multifocal intracranial arterial stenosis (most pronounced at the bilateral intracranial internal carotid arteries, left M1 segment, a right M2 branch vessel, and the bilateral anterior cerebral arteries), at least in part due to atherosclerotic disease. Superimposed vasoconstriction or vasculitis could also be present, though, is considered less likely. 2. No large vessel occlusion or obvious new intracranial arterial stenosis since 11/22/2022. CTA neck: 1. Approximately 60% atherosclerotic stenosis of the right ICA origin and 50% stenosis of the left ICA origin by NASCET criteria. 2. 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 3. Moderate atherosclerotic stenosis of the distal cervical right ICA and left common carotid artery origin. 4. No obvious new or progressive cervical arterial stenosis (since 11/22/2022). 5. Suboptimal evaluation of the proximal right cervical vertebral artery. 6. Cervical spondylosis with at least moderate multilevel central and mild neural foraminal narrowing. Dr. Geller discussed the critical findings with Dr. Tee by telephone at 11/27/2022 on 2:38 PM. Approved by Kadi Alston MD on 11/27/2022 2:42 PM By my electronic signature, I attest that I have personally reviewed the images for this examination and formulated the interpretations and opinions expressed in this report Finalized by Christian Geller M.D. on 11/27/2022 2:44 PM. Dictated by Kadi Alston MD on 11/27/2022 1:38 PM. Narrative 11/27/2022 2:44 PM CDT EXAM: CTA HEAD AND NECK HISTORY: Worsening right upper extremity weakness, numbness. TECHNIQUE: Multiple contiguous axial images were obtained of the brain and neck following the administration of IV contrast. CTA maximum density projection images were obtained of the brain and neck with image post processing. Comparison: 11/27/2022 and 11/26/[address] Brain MR dated 11/23/2022. External CTA head 11/22/2022. FINDINGS: CTA head: Nonvascular intracranial findings are better evaluated on prior noncontrast CT head. Severe intracranial atherosclerotic disease (similar to 11/22/2022). At least moderate multifocal atherosclerotic stenosis of the bilateral carotid siphons. Grossly patent dominant intracranial right vertebral and basilar arteries. At least mild multifocal stenosis of the intracranial nondominant left vertebral artery. At least moderate multifocal distal cerebral arterial stenosis, including severe of the left M1 segment, a proximal right M2 branch in the bilateral A2 and pericallosal anterior cerebral arteries, also similar to 11/22/2022. Mild to moderate multifocal bilateral posterior cerebral artery stenosis. No aneurysm or arteriovenous malformation is identified. CTA neck: Extensive calcific and noncalcific atherosclerotic plaque throughout the aortic arch, including irregular vulnerable appearing plaque within the descending aortic arch. Mild atherosclerotic narrowing of the innominate and left subclavian artery origins. Moderate atherosclerosis stenosis of the left common carotid artery origin. Calcified and noncalcified plaque resulting in approximately 60% stenosis of the right ICA origin by NASCET criteria. Calcified and noncalcified plaque results in moderate stenosis of the distal cervical right ICA. Eccentric noncalcified plaque results in approximately 50% stenosis of the left ICA origin by NASCET criteria. Persistent occlusion of the nondominant left vertebral artery at its origin with reconstitution of the V2 segment. The right V1 segment is obscured by patient motion and venous pooling of contrast associated streak artifact. The dominant right cervical vertebral artery is otherwise widely patent. Patient is edentulous. Diffuse demineralization. Nonobstructive small calculus within the right submandibular gland. Expiratory phase imaging. Cervical spondylosis with at least moderate multilevel central spinal and at least mild multilevel neural foraminal stenosis. Prior median sternotomy. Procedure Note Christian Geller MD - 11/27/2022 EXAM: CTA HEAD AND NECK HISTORY: Worsening right upper extremity weakness, numbness. TECHNIQUE: Multiple contiguous axial images were obtained of the brain andneck following the administration of IV contrast. CTA maximum densityprojection images were obtained of the brain and neck with image postprocessing. Comparison: 11/27/2022 and 11/26/[address] Brain MR dated 11/23/2022.External CTA head 11/22/2022. FINDINGS: CTA head: Nonvascular intracranial findings are better evaluated on priornoncontrast CT head. Severe intracranial atherosclerotic disease (similar to 11/22/2022). Atleast moderate multifocal atherosclerotic stenosis of the bilateralcarotid siphons. Grossly patent dominant intracranial right vertebral andbasilar arteries. At least mild multifocal stenosis of the intracranialnondominant left vertebral artery. At least moderate multifocal distalcerebral arterial stenosis, including severe of the left M1 segment, aproximal right M2 branch in the bilateral A2 and pericallosal anteriorcerebral arteries, also similar to 11/22/2022. Mild to moderate multifocalbilateral posterior cerebral artery stenosis. No aneurysm or arteriovenousmalformation is identified. CTA neck: Extensive calcific and noncalcific atherosclerotic plaque throughout theaortic arch, including irregular vulnerable appearing plaque within thedescending aortic arch. Mild atherosclerotic narrowing of the innominateand left subclavian artery origins. Moderate atherosclerosis stenosis ofthe left common carotid artery origin. Calcified and noncalcified plaqueresulting in approximately 60% stenosis of the right ICA origin by NASCETcriteria. Calcified and noncalcified plaque results in moderate stenosisof the distal cervical right ICA. Eccentric noncalcified plaque results inapproximately 50% stenosis of the left ICA origin by NASCET criteria. Persistent occlusion of the nondominant left vertebral artery at itsorigin with reconstitution of the V2 segment. The right V1 segment isobscured by patient motion and venous pooling of contrast associatedstreak artifact. The dominant right cervical vertebral artery is otherwisewidely patent. Patient is edentulous. Diffuse demineralization. Nonobstructive smallcalculus within the right submandibular gland. Expiratory phase imaging.Cervical spondylosis with at least moderate multilevel central spinal andat least mild multilevel neural foraminal stenosis. Prior mediansternotomy. IMPRESSION CTA head: 1. Severe multifocal intracranial arterial stenosis (most pronounced atthe bilateral intracranial internal carotid arteries, left M1 segment, aright M2 branch vessel, and the bilateral anterior cerebral arteries), atleast in part due to atherosclerotic disease. Superimposedvasoconstriction or vasculitis could also be present, though, isconsidered less likely. 2. No large vessel occlusion or obvious new intracranial arterialstenosis since 11/22/2022. CTA neck: 1. Approximately 60% atherosclerotic stenosis of the right ICA origin and50% stenosis of the left ICA origin by NASCET criteria. 2. 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 3. Moderate atherosclerotic stenosis of the distal cervical right ICA andleft common carotid artery origin. 4. No obvious new or progressive cervical arterial stenosis (since11/22/2022). 5. Suboptimal evaluation of the proximal right cervical vertebralartery. 6. Cervical spondylosis with at least moderate multilevel central andmild neural foraminal narrowing. Dr. Geller discussed the critical findings with Dr. Tee by telephone at11/27/2022 on 2:38 PM. Approved by Kadi Alston MD on 11/27/2022 2:42 PM By my electronic signature, I attest that I have personally reviewed theimages for this examination and formulated the interpretations andopinions expressed in this report Finalized by Christian Geller M.D. on 11/27/2022 2:44 PM. Dictated by MD Aminata on 11/27/2022 1:38 PM. Topher Moy MD CT ORDERABLES * CTA HEAD WO/W CONT (11/27/2022 1:40 PM CDT) Anatomical Region Laterality Modality Head Computed Tomogra phy 11/27/2022 1:3 8 PM CDT Impressions 11/27/2022 2:44 PM CDT CTA head: 1. Severe multifocal intracranial arterial stenosis (most pronounced at the bilateral intracranial internal carotid arteries, left M1 segment, a right M2 branch vessel, and the bilateral anterior cerebral arteries), at least in part due to atherosclerotic disease. Superimposed vasoconstriction or vasculitis could also be present, though, is considered less likely. 2. No large vessel occlusion or obvious new intracranial arterial stenosis since 11/22/2022. CTA neck: 1. Approximately 60% atherosclerotic stenosis of the right ICA origin and 50% stenosis of the left ICA origin by NASCET criteria. 2. 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 3. Moderate atherosclerotic stenosis of the distal cervical right ICA and left common carotid artery origin. 4. No obvious new or progressive cervical arterial stenosis (since 11/22/2022). 5. Suboptimal evaluation of the proximal right cervical vertebral artery. 6. Cervical spondylosis with at least moderate multilevel central and mild neural foraminal narrowing. Dr. Geller discussed the critical findings with Dr. Tee by telephone at 11/27/2022 on 2:38 PM. Approved by Kadi Alston MD on 11/27/2022 2:42 PM By my electronic signature, I attest that I have personally reviewed the images for this examination and formulated the interpretations and opinions expressed in this report Finalized by Christian Geller M.D. on 11/27/2022 2:44 PM. Dictated by Kadi Alston MD on 11/27/2022 1:38 PM. Narrative 11/27/2022 2:44 PM CDT EXAM: CTA HEAD AND NECK HISTORY: Worsening right upper extremity weakness, numbness. TECHNIQUE: Multiple contiguous axial images were obtained of the brain and neck following the administration of IV contrast. CTA maximum density projection images were obtained of the brain and neck with image post processing. Comparison: 11/27/2022 and 11/26/[address] Brain MR dated 11/23/2022. External CTA head 11/22/2022. FINDINGS: CTA head: Nonvascular intracranial findings are better evaluated on prior noncontrast CT head. Severe intracranial atherosclerotic disease (similar to 11/22/2022). At least moderate multifocal atherosclerotic stenosis of the bilateral carotid siphons. Grossly patent dominant intracranial right vertebral and basilar arteries. At least mild multifocal stenosis of the intracranial nondominant left vertebral artery. At least moderate multifocal distal cerebral arterial stenosis, including severe of the left M1 segment, a proximal right M2 branch in the bilateral A2 and pericallosal anterior cerebral arteries, also similar to 11/22/2022. Mild to moderate multifocal bilateral posterior cerebral artery stenosis. No aneurysm or arteriovenous malformation is identified. CTA neck: Extensive calcific and noncalcific atherosclerotic plaque throughout the aortic arch, including irregular vulnerable appearing plaque within the descending aortic arch. Mild atherosclerotic narrowing of the innominate and left subclavian artery origins. Moderate atherosclerosis stenosis of the left common carotid artery origin. Calcified and noncalcified plaque resulting in approximately 60% stenosis of the right ICA origin by NASCET criteria. Calcified and noncalcified plaque results in moderate stenosis of the distal cervical right ICA. Eccentric noncalcified plaque results in approximately 50% stenosis of the left ICA origin by NASCET criteria. Persistent occlusion of the nondominant left vertebral artery at its origin with reconstitution of the V2 segment. The right V1 segment is obscured by patient motion and venous pooling of contrast associated streak artifact. The dominant right cervical vertebral artery is otherwise widely patent. Patient is edentulous. Diffuse demineralization. Nonobstructive small calculus within the right submandibular gland. Expiratory phase imaging. Cervical spondylosis with at least moderate multilevel central spinal and at least mild multilevel neural foraminal stenosis. Prior median sternotomy. Procedure Note Christian Geller MD - 11/27/2022 EXAM: CTA HEAD AND NECK HISTORY: Worsening right upper extremity weakness, numbness. TECHNIQUE: Multiple contiguous axial images were obtained of the brain andneck following the administration of IV contrast. CTA maximum densityprojection images were obtained of the brain and neck with image postprocessing. Comparison: 11/27/2022 and 11/26/[address] Brain MR dated 11/23/2022.External CTA head 11/22/2022. FINDINGS: CTA head: Nonvascular intracranial findings are better evaluated on priornoncontrast CT head. Severe intracranial atherosclerotic disease (similar to 11/22/2022). Atleast moderate multifocal atherosclerotic stenosis of the bilateralcarotid siphons. Grossly patent dominant intracranial right vertebral andbasilar arteries. At least mild multifocal stenosis of the intracranialnondominant left vertebral artery. At least moderate multifocal distalcerebral arterial stenosis, including severe of the left M1 segment, aproximal right M2 branch in the bilateral A2 and pericallosal anteriorcerebral arteries, also similar to 11/22/2022. Mild to moderate multifocalbilateral posterior cerebral artery stenosis. No aneurysm or arteriovenousmalformation is identified. CTA neck: Extensive calcific and noncalcific atherosclerotic plaque throughout theaortic arch, including irregular vulnerable appearing plaque within thedescending aortic arch. Mild atherosclerotic narrowing of the innominateand left subclavian artery origins. Moderate atherosclerosis stenosis ofthe left common carotid artery origin. Calcified and noncalcified plaqueresulting in approximately 60% stenosis of the right ICA origin by NASCETcriteria. Calcified and noncalcified plaque results in moderate stenosisof the distal cervical right ICA. Eccentric noncalcified plaque results inapproximately 50% stenosis of the left ICA origin by NASCET criteria. Persistent occlusion of the nondominant left vertebral artery at itsorigin with reconstitution of the V2 segment. The right V1 segment isobscured by patient motion and venous pooling of contrast associatedstreak artifact. The dominant right cervical vertebral artery is otherwisewidely patent. Patient is edentulous. Diffuse demineralization. Nonobstructive smallcalculus within the right submandibular gland. Expiratory phase imaging.Cervical spondylosis with at least moderate multilevel central spinal andat least mild multilevel neural foraminal stenosis. Prior mediansternotomy. IMPRESSION CTA head: 1. Severe multifocal intracranial arterial stenosis (most pronounced atthe bilateral intracranial internal carotid arteries, left M1 segment, aright M2 branch vessel, and the bilateral anterior cerebral arteries), atleast in part due to atherosclerotic disease. Superimposedvasoconstriction or vasculitis could also be present, though, isconsidered less likely. 2. No large vessel occlusion or obvious new intracranial arterialstenosis since 11/22/2022. CTA neck: 1. Approximately 60% atherosclerotic stenosis of the right ICA origin and50% stenosis of the left ICA origin by NASCET criteria. 2. 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 3. Moderate atherosclerotic stenosis of the distal cervical right ICA andleft common carotid artery origin. 4. No obvious new or progressive cervical arterial stenosis (since11/22/2022). 5. Suboptimal evaluation of the proximal right cervical vertebralartery. 6. Cervical spondylosis with at least moderate multilevel central andmild neural foraminal narrowing. Dr. Geller discussed the critical findings with Dr. Tee by telephone at11/27/2022 on 2:38 PM. Approved by Kadi Alston MD on 11/27/2022 2:42 PM By my electronic signature, I attest that I have personally reviewed theimages for this examination and formulated the interpretations andopinions expressed in this report Finalized by Christian Geller M.D. on 11/27/2022 2:44 PM. Dictated by MD Aminata on 11/27/2022 1:38 PM. Topher Moy MD CT ORDERABLES * CT HEAD WO CONTRAST (11/27/2022 1:30 PM CDT) Only the most recent of2 resultswithin the time period is included. Anatomical Region Laterality Modality Head Computed Tomogra phy 11/27/2022 1:3 0 PM CDT Impressions 11/27/2022 2:11 PM CDT 1. Grossly stable small left lateral perirolandic MCA territory infarct. No evidence of hemorrhagic conversion or obvious new infarct. 2. Mild patchy cerebral white matter hypodensities and tiny chronic bilateral basal ganglia-capsular lacunar type infarcts, likely sequela of chronic small vessel ischemic change. Finalized by Christian Geller M.D. on 11/27/2022 2:11 PM. Dictated by Kadi Alston MD on 11/27/2022 1:[address] Geller discussed the critical findings with Dr. Tee by telephone at 1:31 PM on 11/27/2022. Approved by aKdi Alston MD on 11/27/2022 1:38 PM By my electronic signature, I attest that I have personally reviewed the images for this examination and formulated the interpretations and opinions expressed in this report Narrative 11/27/2022 2:11 PM CDT EXAM: CT HEAD HISTORY: 77-year-old female. Worsening RUE weakness and numbness. TECHNIQUE: Multiple contiguous axial images were obtained of the brain without intravenous contrast with coronal and sagittal reformats. COMPARISON: MRI brain 11/23/2022. CT head dated 11/26/2022. FINDINGS: Evolving recent left MCA territory infarct involving the left precentral and subcentral gyri. No evidence of hemorrhagic conversion. Mild localized mass effect and sulcal effacement. No midline shift or herniation. Additional tiny recent infarcts are better demonstrated on comparison MRI brain. Small chronic bilateral basal ganglia/capsular lacunar type infarcts are unchanged. Additional mild patchy cerebral white matter hypodensities. The ventricles and subarachnoid spaces are otherwise normal in size and configuration. The lott white matter interfaces are otherwise maintained. The basal cisterns are patent. There is no evidence of acute intracranial hemorrhage or extra-axial fluid collection. Bilateral lens replacement. The mastoid air cells and visualized paranasal sinuses are well-aerated. The calvarium is intact. Partially visualized right nasal support device. Procedure Note Christian Geller MD - 11/27/2022 EXAM: CT HEAD HISTORY: 77-year-old female. Worsening RUE weakness and numbness. TECHNIQUE: Multiple contiguous axial images were obtained of the brainwithout intravenous contrast with coronal and sagittal reformats. COMPARISON: MRI brain 11/23/2022. CT head dated 11/26/2022. FINDINGS: Evolving recent left MCA territory infarct involving the left precentraland subcentral gyri. No evidence of hemorrhagic conversion. Mild localizedmass effect and sulcal effacement. No midline shift or herniation.Additional tiny recent infarcts are better demonstrated on comparison MRIbrain. Small chronic bilateral basal ganglia/capsular lacunar typeinfarcts are unchanged. Additional mild patchy cerebral white matterhypodensities. The ventricles and subarachnoid spaces are otherwise normal in size andconfiguration. The lott white matter interfaces are otherwise maintained.The basal cisterns are patent. There is no evidence of acute intracranialhemorrhage or extra-axial fluid collection. Bilateral lens replacement. The mastoid air cells and visualized paranasalsinuses are well-aerated. The calvarium is intact. Partially visualizedright nasal support device. IMPRESSION 1. 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 2. Mild patchy cerebral white matter hypodensities and tiny chronicbilateral basal ganglia-capsular lacunar type infarcts, likely sequela ofchronic small vessel ischemic change. Finalized by Christian Geller M.D. on 11/27/2022 2:11 PM. Dictated by MD Aminata on 11/27/2022 1:[address] Geller discussed the criticalfindings with Dr. Tee by telephone at 1:31 PM on 11/27/2022. Approved by Kadi Alston MD on 11/27/2022 1:38 PM By my electronic signature, I attest that I have personally reviewed theimages for this examination and formulated the interpretations andopinions expressed in this report Topher Moy MD CT ORDERABLES * (ABNORMAL) CBC AND DIFF (11/27/2022 6:08 AM CDT) Only the most recent of6 resultswithin the time period is included. White Blood Cells 8.2 4.5 - 11.0 K/UL 11/27/2022 6:45 AM CDT [facility] RBC 2.95(L) 4.0 - 5.0 M/UL 11/27/2022 6:45 AM CDT [facility] Hemoglobin 8.6(L) 12.0 - 15.0 GM/DL 11/27/2022 6:45 AM CDT [facility] Hematocrit 26.7(L) 36 - 45 % 11/27/2022 6:45 AM CDT [facility] MCV 90.7 80 - 100 FL 11/27/2022 6:45 AM CDT [facility] MCH 29.1 26 - 34 PG 11/27/2022 6:45 AM CDT [facility] MCHC 32.1 32.0 - 36.0 G/DL 11/27/2022 6:45 AM CDT [facility] RDW 13.5 11 - 15 % 11/27/2022 6:45 AM CDT [facility] Platelet Count 232 150 - 400 K/UL 11/27/2022 6:45 AM CDT [facility] MPV 10.0 7 - 11 FL 11/27/2022 6:45 AM CDT [facility] Neutrophils 69 41 - 77 % 11/27/2022 6:45 AM CDT [facility] Lymphocytes 16(L) 24 - 44 % 11/27/2022 6:45 AM CDT [facility] Monocytes 12 4 - 12 % 11/27/2022 6:45 AM CDT [facility] Eosinophils 3 0 - 5 % 11/27/2022 6:45 AM CDT [facility] Basophils 0 0 - 2 % 11/27/2022 6:45 AM CDT [facility] Absolute Neutrophil Count 5.67 1.8 - 7.0 K/UL 11/27/2022 6:45 AM CDT [facility] Absolute Lymph Count 1.29 1.0 - 4.8 K/UL 11/27/2022 6:45 AM CDT [facility] Absolute Monocyte Count 0.97(H) 0 - 0.80 K/UL 11/27/2022 6:45 AM CDT [facility] Absolute Eosinophil Count 0.25 0 - 0.45 K/UL 11/27/2022 6:45 AM CDT [facility] Absolute Basophil Count 0.03 0 - 0.20 K/UL 11/27/2022 6:45 AM CDT [facility] BLOOD / Unknown 11/27/2022 6:08 AM CDT 11/27/2022 6:09 AM CDT Yanni Morrison MD LABORATORY ORDERABLE S [facility] DEPT PATH AND LAB MEDICINE [address], [place] [id number] [place] [address] * (ABNORMAL) BASIC METABOLIC PANEL (11/27/2022 6:08 AM CDT) Only the most recent of5 resultswithin the time period is included. Sodium 137 137 - 147 MMOL/L 11/27/2022 7:15 AM CDT [facility] Potassium 4.7 3.5 - 5.1 MMOL/L 11/27/2022 7:15 AM CDT [facility] Chloride 101 98 - 110 MMOL/L 11/27/2022 7:15 AM CDT [facility] CO2 30 21 - 30 MMOL/L 11/27/2022 7:15 AM CDT [facility] Anion Gap 6 3 - 12 11/27/2022 7:15 AM CDT [facility] Glucose 103(H) 70 - 100 MG/DL 11/27/2022 7:15 AM CDT [facility] Blood Urea Nitrogen 33(H) 7 - 25 MG/DL 11/27/2022 7:15 AM CDT [facility] DEPT PATH AND LAB MEDICINE Creatinine 1.24(H) 0.4 - 1.00 MG/DL 11/27/2022 7:15 AM CDT [facility] DEPT PATH AND LAB MEDICINE Calcium 9.8 8.5 - 10.6 MG/DL 11/27/2022 7:15 AM CDT [facility] DEPT PATH AND LAB MEDICINE eGFR 45(L) >60 mL/min 11/27/2022 7:15 AM CDT [facility] DEPT PATH AND LAB MEDICINE Comment:eGFR calculated eliz matos the CKD-EPIcr_R equation BLOOD / Unknown 11/27/2022 6:08 AM CDT 11/27/2022 6:09 AM CDT Yanni Morrison MD LAB[facility]ATORY [facility] [address] [place] [address], * SWALLOW MOTION SERIES (11/26/2022 9:21 AM CDT) Anatomical Region Laterality Modality NECK Computed Radiogr aphy 11/26/2022 9:5 4 AM CDT Impressions 11/26/2022 11:13 AM CDT FINDINGS/IMPRESSION: 1. Laryngeal penetration with thin and nectar consistency barium. No aspiration events. 2. Indwelling nasoenteric catheter partially visualized. 3. Please see separately dictated report from the Department of Speech Pathology for further description. Approved by Christian Bundy M.D. on 11/26/2022 9:54 AM By my electronic signature, I attest that I have personally reviewed the images for this examination and formulated the interpretations and opinions expressed in this report Finalized by Harpreet Yoon D.O. on 11/26/2022 11:13 AM. Dictated by Christian Bundy M.D. on 11/26/2022 9:54 AM. Narrative 11/26/2022 11:13 AM CDT SWALLOW MOTION SERIES CLINICAL HISTORY: Dysphagia. TECHNIQUE: The procedure was performed in conjunction with members of the department of speech pathology. Video fluoroscopy was performed during swallowing of various consistencies of barium. The patient tolerated the procedure well and left the department in stable condition. TOTAL FLUOROSCOPY TIME: 156 seconds COMPARISON: None Procedure Note Harpreet Yoon DO - 11/26/2022 SWALLOW MOTION SERIES CLINICAL HISTORY: Dysphagia. TECHNIQUE: The procedure was performed in conjunction with members of the departmentof speech pathology. Video fluoroscopy was performed during swallowing ofvarious consistencies of barium. The patient tolerated the procedure welland left the department in stable condition. TOTAL FLUOROSCOPY TIME: 156 seconds COMPARISON: None IMPRESSION FINDINGS/IMPRESSION: 1. Laryngeal penetration with thin and nectar consistency barium. Noaspiration events. 2. Indwelling nasoenteric catheter partially visualized. 3. Please see separately dictated report from the Department of SpeechPathology for further description. Approved by Christian Bundy M.D. on 11/26/2022 9:54 AM By my electronic signature, I attest that I have personally reviewed theimages for this examination and formulated the interpretations andopinions expressed in this report Finalized by Harpreet Yoon D.O. on 11/26/2022 11:13 AM. Dictated by Sona Neves on 11/26/2022 9:54 AM. Marcus Villarreal DO FLUOROSCOPY ORDERABL ES * FEEDING TUBE PLCMNT (ABD/CHEST LMTD) (11/25/2022 10:51 PM CDT) Only the most recent of3 resultswithin the time period is included. Anatomical Region Laterality Modality CHEST, Abdomen Computed Radiogr aphy 11/26/2022 9:1 4 AM CDT Impressions 11/26/2022 9:19 AM CDT Findings/impression: The lower thorax and abdomen are included in the [id number]. There has been interval advancement of the nasoenteric catheter with its tip now overlying the region of the gastric outlet. Finalized by Harpreet Yoon D.O. on 11/26/2022 9:19 AM. Dictated by Harpreet Yoon D.O. on 11/26/2022 9:14 AM. Narrative 11/26/2022 9:19 AM CDT Feeding tube placement abdomen/chest limited CLINICAL HISTORY: Post feeding tube placement COMPARISON: Prior abdominal radiograph obtained the previous day Procedure Note Harpreet Yoon DO - 11/26/2022 Feeding tube placement abdomen/chest limited CLINICAL HISTORY: Post feeding tube placement COMPARISON: Prior abdominal radiograph obtained the previous day IMPRESSION Findings/impression: The lower thorax and abdomen are included in the [id number]. There hasbeen interval advancement of the nasoenteric catheter with its tip nowoverlying the region of the gastric outlet. Finalized by Harpreet Yoon D.O. on 11/26/2022 9:19 AM. Dictated by Ky Lopez on 11/26/2022 9:14 AM. Marcus Villarreal DO DIAGNOSTIC IMAGING O RDERABLES * CLARISSE W/O CONTRAST & W/ 3D ON CART (11/25/2022 1:39 PM CDT) MV mean gradient 3.00 mmHg OTHER OUTSIDE LAB MV VTI 35.20 cm OTHER OUTSIDE LAB BSA 1.6 m2 OTHER OUTSIDE LAB CV ECHO PV ORTHOTIC TECHNICIAN JONELLE Farfan. Anesthesia Team OTHER OUTSIDE LAB Cardiology Ultrasound Machine Emery Epiq OTHER OUTSIDE LAB SHEARER'S BIPLANE EF 50 % OTHER OUTSIDE LAB Anatomical Region Laterality Modality Ultrasound Narrative 11/25/2022 3:07 PM CDT Left Ventricle: The left ventricular size is normal. The left ventricular systolic function is borderline. Apical akinesis without definitive thrombus. Right Ventricle: The right ventricular size is normal. The right ventricular systolic function is normal. No left atrial appendage thrombus. Aneurysmal atrial septum, that is intact without significant right to left shunting with agitated saline injection and Valsalva. Mitral Valve: Mitral valve sclerosis, mean gradient of 3 mmHg with a heart rate of 68 beats per minutes. Mitral valve area of 2.3 cm². Mild to moderate regurgitation. There is moderate mitral annular calcification. Moderate to severe atheromatous changes noted in the aortic arch and descending thoracic aorta. 3-D imaging was performed during the procedure for further evaluation of cardiac structure and function. Left Ventricle The left ventricular size is normal. The left ventricular systolic function is borderline. Apical akinesis without definitive thrombus. Right Ventricle The right ventricular size is normal. The right ventricular systolic function is normal. Left Atrium Mildly dilated. No left atrial appendage thrombus. Aneurysmal atrial septum, that is intact without significant right to left shunting with agitated saline injection and Valsalva. Right Atrium Normal size. Mitral Valve Mitral valve sclerosis, mean gradient of 3 mmHg with a heart rate of 68 beats per minutes. Mitral valve area of 2.3 cm². Mild to moderate regurgitation. There is moderate mitral annular calcification. Tricuspid Valve Normal valve structure. No stenosis. Mild regurgitation. Aortic Valve Normal valve structure. No stenosis. No regurgitation. Pericardium No pericardial effusion. Pulmonary The pulmonic valve was not well seen. No stenosis. Trace regurgitation. Aorta Moderate to severe atheromatous changes noted in the aortic arch and descending thoracic aorta. Marcus Villarreal DO ECHO ORDERABLES * ECG 12-LEAD (11/23/2022 10:54 AM CDT) VENTRICULAR RATE 97 BPM GE MUSE P-R INTERVAL 164 ms GE MUSE QRS DURATION 102 ms GE MUSE Q-T INTERVAL 350 ms GE MUSE QTC CALCULATION (BAZETT) 444 ms GE MUSE P AXIS 47 degrees GE MUSE R AXIS 92 degrees GE MUSE T AXIS 241 degrees GE MUSE 11/23/2022 10:5 4 AM CDT 11/23/2022 8:07 PM CDT Impressions GE MUSE - 11/23/2022 8:08 PM CDT Sinus rhythm with occasional premature ventricular complexes Rightward axis ST & T wave abnormality, consider inferolateral ischemia Confirmed by Jessy Bledsoe ([id number]) on 11/23/2022 8:07:57 PM Narrative Procedure Note Jessy Bledsoe MD - 11/23/2022 IMPRESSION Sinus rhythm with occasional premature ventricular complexes Rightward axis ST & T wave abnormality, consider inferolateral ischemia Confirmed by Jessy Bledsoe ([id number]) on 11/23/2022 8:07:57 PM Dontrell Bender [employer] ECG ORDERAB LES GE MUSE * (ABNORMAL) HIGH SENSITIVITY TROPONIN I 4 HR (11/23/2022 9:05 AM CDT) [facility] hs Troponin I 4 Hour 649(H) <12 ng/L 11/23/2022 10:22 AM CDT [facility] DEPT PATH AND LAB MEDICINE BLOOD / Unknown 11/23/2022 9:05 AM CDT 11/23/2022 9:13 AM CDT Dontrell Langford-Cindi [employer] LABORATORY ORDERABLES [facility] [address] [place] [address], [place] * 2D + DOPPLER ECHO W/ CONTRAST (11/23/2022 8:06 AM CDT) [facility] Left Ventricle Diastolic Volume 159.00 46 - 106 mL OTHER OUTSIDE LAB Left Ventricle Systolic Volume 82.00 14 - 42 mL OTHER OUTSIDE LAB IVS 1.20 0.6 - 0.9 cm OTHER OUTSIDE LAB LVIDD 4.00 3.8 - 5.2 cm OTHER OUTSIDE LAB LVIDS 2.30 2.2 - 3.5 cm OTHER OUTSIDE LAB LVOT diameter 1.70 cm OTHER OUTSIDE LAB LVOT peak VTI 11.10 cm OTHER OUTSIDE LAB PW 1.20 0.6 - 0.9 cm OTHER OUTSIDE LAB TDI lateral e' 0.08 m/s OTHER OUTSIDE LAB TDI Medial e' 0.05 m/s OTHER OUTSIDE LAB LA volume 64.10 22 - 52 mL OTHER OUTSIDE LAB LA size 3.40 2.7 - 3.8 cm OTHER OUTSIDE LAB Sinus 3.00 2.4 - 3.6 cm OTHER OUTSIDE LAB E wave decelartion time 162.00 ms OTHER OUTSIDE LAB MV Peak A James 1.41 m/s OTHER OUTSIDE LAB MV Peak E James PW 1.36 m/s OTHER OUTSIDE LAB MV mean gradient 6.00 mmHg OTHER OUTSIDE LAB MV VTI 30.20 cm OTHER OUTS [facility] LAB Right Heart Systolic Mmode TAPSE 2.27 >1.7 cm OTHER OUTSIDE LAB Right Ventricular Basal Diameter 3.00 2.5 - 4.1 cm OTHER OUTSIDE LAB Right Atrial Area 13.40 <18 cm2 OTHER OUTSIDE LAB Right Heart Systolic TDI S' 0.08 m/s OTHER OUTSID E LAB BSA 1.61 m2 OTHER OUTS [facility] LAB FS 42.50 28 - 44 % OTHER OUTS [facility] LAB Teichholtz 72.25 % OTHER OUT SIDE LAB Left Ventricle Systolic Volume Index 51 8 - 24 mL/m2 OTHER OUTSIDE LAB Left Ventricle Diastolic Volume Index 99 29 - 61 mL/m2 OTHER OUTSIDE LAB Left Atrium Index 39.81 16 - 34 mL/m2 OTHER OUTSIDE LAB LV mass 165 67 - 162 g OTHER OUTSIDE LAB Left Ventricle Mass Index 103 43 - 95 g/m2 OTHER OUTSIDE LAB RWT 0.60 <=0.42 OTHER OUTS [facility] LAB LVOT area 2.27 cm2 OTHER OUTS [facility] LAB LVOT stroke volume 25.19 cm3 OTHER OUTSIDE LAB MV valve area by continuity eq 0.83 cm2 OTHER OUTSIDE LAB E/A ratio 0.96 OTHER OUTS [facility] LAB Medial E/E' ratio 27.20 OTHER OUTSIDE LAB Lateral E/E' ratio 17.00 OTHER OUTSIDE LAB RA PRESSURE 3 OTHER OU TSIDE LAB Cardiology Ultrasound Machine Emery Epiq OTHER OUTSIDE LAB TR PEAK VELOCITY 3.2 m/s OTHER OUTSIDE LAB RV SYSTOLIC PRESSURE 41 OTHER OUTSIDE LAB TV rest pulmonary artery pressure 44 mmHg OTHER OUTSID E LAB ECHO EF 50 % OTHER OUTS [facility] LAB SHEARER'S BIPLANE EF 49 % OTHER OUTSIDE LAB Ascending aorta 2.8 cm OTHE R OUTSIDE LAB Anatomical Region Laterality Modality Ultrasound Narrative 11/23/2022 8:36 AM CDT Somewhat limited study The LV apex is akinetic possibly suggesting an old apical infarct. Overall LV ejection fraction is estimated at 50 to 55%. RV systolic function is normal Mildly dilated left atrium Mitral annulus is calcified. There is suggestion of mild to moderate mitral stenosis with a mean diastolic gradient is of 6 mmHg (at a heart rate of 90/min). Mild mitral regurgitation is present. Aortic valve not well seen. Appears to be somewhat sclerotic. There is no stenosis or regurgitation. Mild TR is present Nondilated IVC Bubble study was suboptimal-there is no evidence of intracardiac [id number] shunting Left Ventricle The left ventricle is moderately dilated. Wall thickness is increased. Concentric hypertrophy. The left ventricular systolic function is low normal. The visually estimated ejection fraction is 50%. There are segmental wall motion abnormalities, as described below. Unable to assess left ventricular diastolic function. Unable to assess left atrial pressure. Right Ventricle Ventricle not well seen. The right ventricle is probably normal in size. The right ventricular systolic function is probably normal. Left Atrium Mildly dilated. There is no interatrial shunting by color flow Doppler and saline contrast studies. Right Atrium Not well seen. Normal size. IVC/SVC Normal central venous pressure (0-5 mm Hg). Mitral Valve Non-specific thickening. Mild to moderate stenosis. MG= 6mmHg @ 90 BPM. Mild regurgitation. There is mitral annular calcification. Tricuspid Valve The tricuspid valve was not well seen. No stenosis. Mild regurgitation. Aortic Valve The aortic valve was not well seen. The valve is sclerotic. Pericardium No pericardial effusion. Pulmonary The pulmonic valve was not seen well but no Doppler evidence of stenosis. Mild regurgitation. Aorta The aortic root and ascending aorta are normal in size. Wall Scoring Resting Score Index: 1.59 The following segments are akinetic: apical anterior, apical septal, apical inferior, apical lateral and apex. All other segments are normal. Yanni Morrison MD ECHO ORDERABLES * (ABNORMAL) HIGH SENSITIVITY TROPONIN I 2 HOUR (11/23/2022 5:08 AM CDT) hs Troponin I 2 Hour 790(H) <12 ng/L 11/23/2022 6:09 AM CDT [facility] 11/23/2022 5:0 8 AM CDT 11/23/2022 5:25 AM CDT Silvana Faust DO LABORATORY ORDERABLE S [facility] [address] [place] [address], * MRI HEAD WO CONTRAST (11/23/2022 4:41 AM CDT) Anatomical Region Laterality Modality Head Magnetic Resonan ce 11/23/2022 4:3 8 AM CDT Impressions 11/23/2022 5:15 AM CDT 1. Acute to early subacute cortical-subcortical infarcts involving the left precentral gyrus-frontal opercular region, anterior left periventricular frontal lobe, right middle frontal gyrus, and right external capsule. 2. Additional tiny acute to early subacute left cerebellar infarct. 3. Several tiny chronic bilateral basal ganglia-capsular lacunar infarcts. 4. Mild cerebral volume loss and mild patchy supratentorial white matter and pontine FLAIR hyperintensities, likely sequela of chronic microvascular ischemia. Findings were discussed with Dr. Faust by Ellis Gupta M.D. via telephone at 4:54 AM on 11/23/2022. By my electronic signature, I attest that I have personally reviewed the images for this examination and formulated the interpretations and opinions expressed in this report Finalized by Jayesh Muñoz M.D. on 11/23/2022 5:15 AM. Dictated by Luis Gupta MD on 11/23/2022 4:38 AM. Narrative 11/23/2022 5:15 AM CDT EXAM: MRI BRAIN HISTORY: Stroke. Right facial droop. Right-sided weakness and aphasia. TECHNIQUE: Multiplanar and multisequence MR imaging of the head was performed. COMPARISON: IR cerebral angiogram 11/22/2022; multiple prior CT head and CTA head 11/22/2022. FINDINGS: Acute to early subacute cortical-subcortical infarcts involving the left precentral gyrus-frontal opercular region, anterior left periventricular frontal lobe, right middle frontal gyrus, and right superior external capsule. Additional tiny acute to early subacute left cerebellar infarct. Several tiny chronic bilateral basal ganglier-capsular lacunar infarcts, greater on the left. Mild patchy superimposed nonspecific supratentorial white matter and pontine FLAIR hyperintensities. Mild global cerebral volume loss. There is no midline shift or mass effect. The vascular flow-voids are unremarkable. Bilateral ocular lens replacements. Procedure Note Jayesh Muñoz MD - 11/23/2022 EXAM: MRI BRAIN HISTORY: Stroke. Right facial droop. Right-sided weakness and aphasia. TECHNIQUE: Multiplanar and multisequence MR imaging of the head wasperformed. COMPARISON: IR cerebral angiogram 11/22/2022; multiple prior CT head andCTA head 11/22/2022. FINDINGS: Acute to early subacute cortical-subcortical infarcts involving the leftprecentral gyrus-frontal opercular region, anterior left periventricularfrontal lobe, right middle frontal gyrus, and right superior externalcapsule. Additional tiny acute to early subacute left cerebellarinfarct. Several tiny chronic bilateral basal ganglier-capsular lacunar infarcts,greater on the left. Mild patchy superimposed nonspecific supratentorialwhite matter and pontine FLAIR hyperintensities. Mild global cerebralvolume loss. There is no midline shift or mass effect. The vascularflow-voids are unremarkable. Bilateral ocular lens replacements. IMPRESSION 1. Acute to early subacute cortical-subcortical infarcts involving theleft precentral gyrus-frontal opercular region, anterior leftperiventricular frontal lobe, right middle frontal gyrus, and rightexternal capsule. 2. Additional tiny acute to early subacute left cerebellar infarct. 3. Several tiny chronic bilateral basal ganglia-capsular lacunarinfarcts. 4. Mild cerebral volume loss and mild patchy supratentorial white matterand pontine FLAIR hyperintensities, likely sequela of chronicmicrovascular ischemia. Findings were discussed with Dr. Faust by Ellis Gupta M.D. via telephoneat 4:54 AM on 11/23/2022. By my electronic signature, I attest that I have personally reviewed theimages for this examination and formulated the interpretations andopinions expressed in this report Finalized by Jayesh Muñoz M.D. on 11/23/2022 5:15 AM. Dictated byLuis Gupta MD on 11/23/2022 4:38 AM. Yanni Morrison MD MR ORDERABLES * URINALYSIS MICROSCOPIC REFLEX TO CULTURE (11/23/2022 2:07 AM CDT) WBCs,UA 0-2 0 - 2 /HPF 11/23/2022 4:34 AM CDT [facility] DEPT PATH AND LAB MEDICINE RBCs,UA 0-2 0 - 3 /HPF 11/23/2022 4:34 AM CDT [facility] DEPT PATH AND LAB MEDICINE Comment,UA Criteria for reflex to culture are WBC>10, Positive Nitrite, and/or >=+1 leukocytes. If quantity is not sufficient, an addendum will follow. 11/23/2022 4:34 AM CDT [facility] DEPT PATH AND LAB MEDICINE UA Reflex Specimen Type and Source URINE CATHETER, IN AND OUT 11/23/2022 1:19 AM CDT [facility] DEPT PATH AND LAB MEDICINE MucousUA TRACE 11/23/2022 4:34 AM CDT [facility] DEPT PATH AND LAB MEDICINE Urine (Catheter, In and Out) 11/23/2022 2:07 AM CDT 11/23/2022 2:25 AM CDT Dontrell Bender [employer] URINE ORDER [facility] [address] [place] [address], [place] * (ABNORMAL) URINALYSIS DIPSTICK REFLEX TO CULTURE (11/23/2022 2:07 AM CDT) Color,UA STRAW 11/23/2022 4:34 AM CDT [facility] DEPT PATH AND LAB MEDICINE Turbidity,UA CLEAR CLEAR-TIFFANY R 11/23/2022 4:34 AM CDT [facility] DEPT PATH AND LAB MEDICINE Specific [place]-Urine >1.050(H) 1.005 - 1.030 11/23/2022 4:34 AM CDT [facility] DEPT PATH AND LAB MEDICINE Comment:NOTE NEW REFERENCE R TANISHA pH,UA 6.0 5.0 - 8.0 11/23/2022 4:34 AM CDT [facility] DEPT PATH AND LAB MEDICINE Protein,UA 1+(A) NEG-NEG 11/23/2022 4:34 AM CDT [facility] [facility] DEPT PATH AND LAB MEDICINE Glucose,UA NEG NEG-NEG 11/23/2022 4:34 AM CDT [facility] DEPT PATH AND LAB MEDICINE Ketones,UA TRACE(A) NEG-NEG 11/23/2022 4:34 AM CDT [facility] DEPT PATH AND LAB MEDICINE Bilirubin,UA NEG NEG-NEG 11/23/2022 4:34 AM CDT [facility] DEPT PATH AND LAB MEDICINE Blood,UA NEG NEG-NEG 11/23/2022 4:34 AM CDT [facility] DEPT PATH AND LAB MEDICINE Urobilinogen,U A NORMAL NORM-TANYA L 11/23/2022 4:34 AM CDT [facility] PATH AND LAB MEDIC[facility] Nitrite,UA NEG NEG-NEG 11/23/2022 4:34 AM CDT [facility] PATH [facility] LAB MEDIC[facility] Leukocytes,UA NEG NEG-NEG 11/23/2022 4:34 AM CDT [facility] PATH AND LAB MEDICINE Urine Ascorbic Acid, UA NEG NEG-NEG 11/23/2022 4:34 AM CDT [facility] PATH [facility] LAB MEDIC[facility] URINE SPECIMEN / Unknown 11/23/2022 2:07 AM CDT 11/23/2022 2:25 AM CDT Dontrell Bender [employer]LLING [employer] URINE ORDER [place] [facility] PATH [facility] LAB MEDICINE [address] [place] [address], * HEMOGLOBIN A1C (11/23/2022 1:14 AM CDT) Hemoglobin A1C 5.4 4.0 - 5.7 % 11/23/2022 10:02 AM CDT [facility] PATH AND LAB MEDICINE Comment: The ADA recommends that most patients with type 1 and type 2 diabetes maintain an A1c level <7%. BLOOD / Unknown 11/23/2022 1:14 AM CDT 11/23/2022 1:43 AM CDT Yanni Morrison MD LABORATORY ORDERABLE S [facility] PATH [facility] LAB MEDICINE [address] [place] [address], * (ABNORMAL) IONIZED CALCIUM (11/23/2022 1:14 AM CDT) Ionized Calcium 1.35(H) 1.0 - 1.3 MMOL/L 11/23/2022 2:03 AM CDT [facility] PATH [facility] LAB MEDIC[facility] BLOOD / Unknown 11/23/2022 1:14 AM CDT 11/23/2022 2:00 AM CDT Dontrell Bender [employer]RILLING [employer]EM[employer] LABORATORY ORDERABLES [facility] PATH [facility] MEDIC[facility] [address] [place] [address], * (ABNORMAL) LIPID PROFILE (11/23/2022 1:14 AM CDT) [facility] Signature Cholesterol 145 <200 MG/DL 11/23/2022 2:18 AM CDT [facility] DEPT PATH AND LAB MEDICINE Triglycerides 111 <150 MG/DL 11/23/2022 2:18 AM CDT [facility] DEPT PATH AND LAB MEDICINE HDL 38(L) >40 MG/DL 11/23/2022 2:18 AM CDT [facility] DEPT PATH AND LAB MEDICINE LDL 89 <100 mg/dL 11/23/2022 2:18 AM CDT [facility] DEPT PATH AND LAB MEDICINE VLDL 22 MG/DL 11/23/2022 2:18 AM CDT [facility] DEPT PATH AND LAB MEDICINE Non HDL Cholesterol 107 MG/DL 11/23/2022 2:18 AM CDT [facility] DEPT PATH AND LAB MEDICINE Comment: Calculated non-HDL Cholesterol (non-HDL-C) indirectly measures LDL-C, Lp(a), IDL-C, and VLDL-C. It is a surrogate marker for Apoprotein B. Goal should be less than 130 mg/dL. BLOOD / Unknown 11/23/2022 1:14 AM CDT 11/23/2022 1:43 AM CDT Yanni Morrison MD LABORATORY ORDERABLE S [facility] PATH [facility] LAB MEDICINE [address] [place] [address], [place] * IR CEREBRAL ARTERIOGRAM DIAGNOSTIC WITH INTERVENTION (11/22/2022 11:30 PM CDT) Anatomical Region Laterality Modality X-Ray Angiograph y 11/23/2022 8:1 2 AM CDT Impressions 11/23/2022 9:14 AM CDT 1. Mild stenosis of the proximal ICA approximating 50% diameter stenosis. 2. No large vessel occlusion. No intervention was performed. 3. Diffuse irregularity and areas of narrowing involving the cavernous, supraclinoid, and intracranial vasculature. This is suggestive of intracranial atherosclerosis. Vasculitis, in the proper clinical setting, could potentially have this appearance as well. Correlate clinically. I, Mikal Hicks M.D., the attending interventional radiologist, performed the entire procedure, personally reviewed the images, and formulated the interpretations and opinions expressed in this report. @TT Finalized by Mikal iHcks M.D. on 11/23/2022 9:14 AM. Dictated by Mikal Hicks M.D. on 11/23/2022 8:12 AM. Narrative 11/23/2022 9:14 AM CDT Diagnostic cerebral angiogram with mechanical stroke thrombectomy (anticipated) Ultrasound-guided radial artery access CLINICAL HISTORY: Left MCA syndrome, stroke, left internal carotid artery stenosis, poor quality CTA with suspicion of large vessel occlusion INTERVENTIONALIST: Katherine Hicks M.D., Narendra Mari M.D. COMPARISON STUDY: CT angiogram, CT perfusion same day PROCEDURES PERFORMED: Cerebral angiography with selective catheterization and angiographic interpretation of: 2 vessels Right radial arteriogram Left common carotid arteriogram with cervical and intracranial views Ultrasound-guided common radial artery access Anesthesia: General MEDICATIONS: Intra-arterial verapamil and nitroglycerin CONTRAST: 120 mL Omnipaque 300 ACCESS SITE: Right radial artery. Access was obtained under ultrasound guidance. The needle was visualized entering the vessel was documented. A hardcopy ultrasound image was saved and stored in PACS. Right radial artery patency was verified with ultrasound demonstrating appropriate size of the vessel. Of note, both common femoral arteries were the plan access routes but may be chronically occluded. HEMOSTASIS: TR Band hemostasis device MATERIALS USED: Walrus balloon guide sheath, 6 Spanish Perez select guide catheter PROCEDURE: The risks, benefits, and alternatives to the procedure and sedation were explained to the patient's , and written informed consent obtained. Initially, groin access was planned but after ultrasound interrogation, both common femoral arteries were noted to be heavily calcified and no pulsatility, compressibility, or suggestion of vessel patency. Because of this, attention was then turned to the right wrist. The right wrist was then prepped and draped in the usual sterile fashion. The radial artery was accessed with micropuncture technique and a 0.021 wire was advanced into the radial artery. Access was obtained under ultrasound guidance. There was direct ultrasound visualization of the needle entering the radial artery. The radial artery was noted to be widely patent with no stenosis or significant calcification. A hardcopy ultrasound image was saved and stored in PACS. A 6 Spanish slender sheath was then placed over the wire and attached to saline drip. An intra-arterial injection of 2.5 mg of verapamil and 200 mcg of nitroglycerin was then given through the sheath. A sheath angiogram was performed demonstrating no gross vascular anatomic abnormalities or variants. The 6 Spanish sheath was then exchanged over a Thornton wire for a coaxial system consisting of the 6 F Perez 2 select catheter was loaded inside of the walrus balloon guide sheath which was attached to a continuous flush system. The system was then advanced into the brachiocephalic artery and the Perez 2 catheter was formed in the ascending aorta. Following this, the left common carotid artery was selected and diagnostic angiograms were obtained. This demonstrated no high- grade internal carotid artery stenosis and no large vessel occlusion. Because of this, no intervention was warranted. Following the diagnostic study, the catheter and sheath were removed and hemostasis was achieved with the TR band. The TR band was properly positioned at the arteriotomy. The procedure was well-tolerated, and the patient discharged in stable baseline neurologic condition. FINDINGS: Right radial artery: Normal caliber with no vascular loops identified. Left common carotid artery: Carotid bifurcation is patent. There is atherosclerotic plaque resulting in 50% narrowing of the vessel at the origin. Distal cervical ICA is patent and smooth. There is moderate irregularity and narrowing of the cavernous ICA with a more focal stenosis of the supraclinoid ICA but overall, robust flow is maintained across the stenoses. Intracranial vessels demonstrate diffuse irregularity with focal moderate stenosis of the distal M1 segment but no evidence for occlusion. Dural venous sinuses are patent. Procedure Note Mikal Hicks MD - 11/23/2022 Diagnostic cerebral angiogram with mechanical stroke thrombectomy(anticipated) Ultrasound-guided radial artery access CLINICAL HISTORY: Left MCA syndrome, stroke, left internal carotid arterystenosis, poor quality CTA with suspicion of large vessel occlusion INTERVENTIONALIST: Katherine Hicks M.D., Narendra Mari M.D. COMPARISON STUDY: CT angiogram, CT perfusion same day PROCEDURES PERFORMED: Cerebral angiography with selective catheterizationand angiographic interpretation of: 2 vessels Right radial arteriogram Left common carotid arteriogram with cervical and intracranial views Ultrasound-guided common radial artery access Anesthesia: General MEDICATIONS: Intra-arterial verapamil and nitroglycerin CONTRAST: 120 mL Omnipaque 300 ACCESS SITE: Right radial artery. Access was obtained under ultrasoundguidance. The needle was visualized entering the vessel was documented. Ahardcopy ultrasound image was saved and stored in PACS. Right radialartery patency was verified with ultrasound demonstrating appropriate sizeof the vessel. Of note, both common femoral arteries were the plan accessroutes but may be chronically occluded. HEMOSTASIS: TR Band hemostasis device MATERIALS USED: Walrus balloon guide sheath, 6 Spanish Perez select guidecatheter PROCEDURE: The risks, benefits, and alternatives to the procedure and sedation wereexplained to the patient's , and written informed consentobtained. Initially, groin access was planned but after ultrasound interrogation,both common femoral arteries were noted to be heavily calcified and nopulsatility, compressibility, or suggestion of vessel patency. Because ofthis, attention was then turned to the right wrist. The right wrist was then prepped and draped in the usual sterile fashion.The radial artery was accessed with micropuncture technique and a 0.021wire was advanced into the radial artery. Access was obtained underultrasound guidance. There was direct ultrasound visualization of theneedle entering the radial artery. The radial artery was noted to bewidely patent with no stenosis or significant calcification. A hardcopyultrasound image was saved and stored in PACS. A 6 Spanish slender sheathwas then placed over the wire and attached to saline drip. Anintra-arterial injection of 2.5 mg of verapamil and 200 mcg ofnitroglycerin was then given through the sheath. A sheath angiogram wasperformed demonstrating no gross vascular anatomic abnormalities orvariants. The 6 Spanish sheath was then exchanged over a Thornton wire for acoaxial system consisting of the 6 F Perez 2 select catheter was loadedinside of the walrus balloon guide sheath which was attached to acontinuous flush system. The system was then advanced into thebrachiocephalic artery and the Perez 2 catheter was formed in theascending aorta. Following this, the left common carotid artery wasselected and diagnostic angiograms were obtained. This demonstrated nohigh- grade internal carotid artery stenosis and no large vessel occlusion.Because of this, no intervention was warranted. Following the diagnostic study, the catheter and sheath were removed andhemostasis was achieved with the TR band. The TR band was properlypositioned at the arteriotomy. The procedure was well-tolerated, and thepatient discharged in stable baseline neurologic condition. FINDINGS: Right radial artery: Normal caliber with no vascular loops identified. Left common carotid artery: Carotid bifurcation is patent. There isatherosclerotic plaque resulting in 50% narrowing of the vessel at theorigin. Distal cervical ICA is patent and smooth. There is moderate irregularity and narrowing of the cavernous ICA with donya focal stenosis of the supraclinoid ICA but overall, robust flow ismaintained across the stenoses. Intracranial vessels demonstrate diffuseirregularity with focal moderate stenosis of the distal M1 segment but noevidence for occlusion. Dural venous sinuses are patent. IMPRESSION 1. Mild stenosis of the proximal ICA approximating 50% diameterstenosis. 2. No large vessel occlusion. No intervention was performed. 3. Diffuse irregularity and areas of narrowing involving the cavernous,supraclinoid, and intracranial vasculature. This is suggestive ofintracranial atherosclerosis. Vasculitis, in the proper clinical setting,could potentially have this appearance as well. Correlate clinically. I, Mikal Hicks M.D., the attending interventional radiologist,performed the entire procedure, personally reviewed the images, andformulated the interpretations and opinions expressed in this report. @TT Finalized by Mikal Hicks M.D. on 11/23/2022 9:14 AM. Dictated byMikal Hicks M.D. on 11/23/2022 8:12 AM. Yanni Morrison MD IR ORDERABLES * (ABNORMAL) POC GLUCOSE (11/22/2022 11:08 PM CDT) Glucose, POC 103(H) 70 - 100 MG/DL 11/22/2022 11:10 PM CDT [facility] 11/22/2022 11:0 8 PM CDT 11/22/2022 11:10 PM CDT Yanni Morrison MD OTHER LABORATORY [facility] [address] [place] [address] * CT HEAD EXTERNAL IMAGING (11/22/2022 12:15 AM CDT) Narrative Scheduling, Silent - 11/23/2022 7:08 AM CDT This order has been auto finalized and does not contain a result. Radiologist Outpatient RADIOLOGY EXTERNA L ORDERABLES * CTA HEAD EXTERNAL IMAGING (11/22/2022 12:10 AM CDT) Only the most recent of3 resultswithin the time period is included. Narrative Scheduling, Silent - 11/23/2022 7:07 AM CDT This order has been auto finalized and does not contain a result. Radiologist Outpatient RADIOLOGY EXTERNA L ORDERABLES * TELEMETRY STRIPS-SCAN (11/22/2022 12:00 AM CDT) Narrative 11/22/2022 12:00 AM CDT Ordered by an unspecified provider. Scanned Document PROCEDURE DUMMY ORDE RS * TELEMETRY STRIPS-SCAN (11/22/2022 12:00 AM CDT) Narrative 11/22/2022 12:00 AM CDT Ordered by an unspecified provider. Scanned Document PROCEDURE DUMMY ORDE RS * TELEMETRY STRIPS-SCAN (11/22/2022 12:00 AM CDT) Narrative 11/22/2022 12:00 AM CDT Ordered by an unspecified provider. Scanned Document PROCEDURE DUMMY ORDE RS * TELEMETRY STRIPS-SCAN (11/22/2022 12:00 AM CDT) Narrative 11/22/2022 12:00 AM CDT Ordered by an unspecified provider. Scanned Document PROCEDURE DUMMY ORDE RS * TELEMETRY STRIPS-SCAN (11/22/2022 12:00 AM CDT) Narrative 11/22/2022 12:00 AM CDT Ordered by an unspecified provider. Scanned Document PROCEDURE DUMMY ORDE RS * TELEMETRY STRIPS-SCAN (11/22/2022 12:00 AM CDT) Narrative 11/22/2022 12:00 AM CDT Ordered by an unspecified provider. Scanned Document PROCEDURE DUMMY ORDE RS * TELEMETRY STRIPS-SCAN (11/22/2022 12:00 AM CDT) Narrative 11/22/2022 12:00 AM CDT Ordered by an unspecified provider. Scanned Document PROCEDURE DUMMY ORDE RS * TELEMETRY STRIPS-SCAN (11/22/2022 12:00 AM CDT) Narrative 11/22/2022 12:00 AM CDT Ordered by an unspecified provider. Scanned Document PROCEDURE DUMMY ORDE RS * TELEMETRY STRIPS-SCAN (11/22/2022 12:00 AM CDT) Narrative 11/22/2022 12:00 AM CDT Ordered by an unspecified provider. Scanned Document PROCEDURE DUMMY ORDE RS * TELEMETRY STRIPS-SCAN (11/22/2022 12:00 AM CDT) Narrative 11/22/2022 12:00 AM CDT Ordered by an unspecified provider. Scanned Document PROCEDURE DUMMY ORDE RS * TELEMETRY STRIPS-SCAN (11/22/2022 12:00 AM CDT) Narrative 11/22/2022 12:00 AM CDT Ordered by an unspecified provider. Scanned Document PROCEDURE DUMMY ORDE RS * TELEMETRY STRIPS-SCAN (11/22/2022 12:00 AM CDT) Narrative 11/22/2022 12:00 AM CDT Ordered by an unspecified provider. Scanned Document PROCEDURE DUMMY ORDE RS * TELEMETRY STRIPS-SCAN (11/22/2022 12:00 AM CDT) Narrative 11/22/2022 12:00 AM CDT Ordered by an unspecified provider. Scanned Document PROCEDURE DUMMY ORDE RS * TELEMETRY STRIPS-SCAN (11/22/2022 12:00 AM CDT) Narrative 11/22/2022 12:00 AM CDT Ordered by an unspecified provider. Scanned Document PROCEDURE DUMMY ORDE RS * TELEMETRY STRIPS-SCAN (11/22/2022 12:00 AM CDT) Narrative 11/22/2022 12:00 AM CDT Ordered by an unspecified provider. Scanned Document PROCEDURE DUMMY ORDE RS * TELEMETRY STRIPS-SCAN (11/22/2022 12:00 AM CDT) Narrative 11/22/2022 12:00 AM CDT Ordered by an unspecified provider. Scanned Document PROCEDURE DUMMY ORDE RS * TELEMETRY STRIPS-SCAN (11/22/2022 12:00 AM CDT) Narrative 11/22/2022 12:00 AM CDT Ordered by an unspecified provider. Scanned Document PROCEDURE DUMMY ORDE RS * TELEMETRY STRIPS-SCAN (11/22/2022 12:00 AM CDT) Narrative 11/22/2022 12:00 AM CDT Ordered by an unspecified provider. Scanned Document PROCEDURE DUMMY ORDE RS from Last 3 Months Advance Directives Latest Code Status on File Code Status Date Activated Date Inactivated Comments DNAR-Full Intervention 11/23/2022 1:04 AM 11/30/2022 1 :44 PM Question Answer Comments Provider has discussed Code Status w/Patient or Family? Yes Does the patient want any in tervention for a pre-arrest emergency which would necessitate transfer to an ICU setting? Yes Respiratory emergency: does the patient want to have intubation with mechanical ventilation? No Symptomatic/hypotensive dysr hythmia with a pulse: does the patient want cardioversion? No Hypotension: does the patien t want the use of vasopressors if needed for blood pressure? Yes Respiratory emergency: does the patient want to have a trial of non-invasive positive pressure ventilation (NIPPV/BiPAP)? Not discussed Code Status History Code Status Date Activated Date Inactivated Comments Full Code 11/23/2022 12:00 AM 11/23/2022 1:04 AM Question Answer Comments Provider has discussed Code Status w/Patient or Family? No, more discussion needed Care Teams Pillowcase Cutter Relationship Specialty Start Date End Date Whitney Burnham, JONELLE PCP - General 11/23/22
--- OUTSIDE RECORDS SUMMARY | 2022-11-30 14:11 | XMS REPORT | Encounter Summary ---
Author Author [facility] Organization [facility] Address Unknown Phone Unavailable Care Team Providers Care Heat Pump Installer Name Role Phone Whitney Burnham RN PCP Unavailable Reason for Visit * Auth/Cert (Routine) Specialty Diagnoses / Procedures Referred By Grace wilkerson Referred To Contact Diagnoses Acute ischemic stroke (HCC) stroke Referral ID Status Reason Start Date Expiration Date Visits Re quested Visits Authorized [id number] 1 1 Encounter Details Date Type Department Care Team Description 11/30/2022 1:17 PM CDT Hospital Encounter Cardiovascular Medicine: [facility] [address] [place] [address] Anita Layton T, DO [address] [place] [address] Arrived Social History Tobacco Use Types Packs/Day Years Used Date Smoking Tobacco: Former Cigarettes 2 1 960 - 11/02/2022 Smokeless Tobacco: Never Alcohol Use Standard Drinks/Week Comments Never 0 [...] on file Sexual Orientation Not on file documented as of this encounter Functional Status Functional Status Response Date of Assess ment Does the patient have a hearing impairment: No 11/23/2022 documented as of this encounter Plan of Treatment Scheduled Orders Name Type Priority Associated Diagnoses Orde r Schedule EVENT MONITOR Heart Rhythm Management Routine Acute ischemic stroke (HCC) Aphasia due to acute stroke (HCC) Dysphagia, unspecified type Right hemiparesis (HCC) Tissue plasminogen activator (tPA) administered at other facility within 24 hours before current admission 1 Occurrences starting 11/30/2022 until 11/30/2022 documented as of this encounter Goals Goal Patient Goal Type Associated Problems Recent Progress Patient-Stated? Author [facility] On track(11/27/19 11:13 AM CDT) No Mando Johns RN documented as of this encounter Visit Diagnoses Diagnosis Acute ischemic stroke (HCC) Unspecified cerebral artery occlusion with cerebral infarction Aphasia due to acute stroke Dysphagia, unspecified type Right hemiparesis (HCC) Hemiplegia, unspecified, affecting unspecified side Tissue plasminogen activator (tPA) administered at other facility within 24 hours before current admission documented in this encounter Additional Health Concerns Assessment Noted Time A fall risk assessment has been complete d for the patient 11/29/2022 9:30 PM CDT documented as of this encounter Care Teams Heat Pump Installer Relationship Specialty Start Date End Date Whitney Bunrham, JONELLE PCP - General 11/23/22 documented as of this encounter
--- OUTSIDE RECORDS SUMMARY | 2022-11-30 14:11 | XMS REPORT | Encounter Summary ---
Author Author [facility] Organization [facility] Address Unknown Phone Unavailable Care Team Providers Care House Registry Rn Name Role Phone Whitney Burnham RN PCP Unavailable Encounter Details Date Type Department Care Team Description 11/30/2022 Travel Social History Tobacco Use Types Packs/Day Years [...] as of this encounter Plan of Treatment Not on file documented as of this encounter Goals Goal Patient Goal Type Associated Problems Recent Progress Patient-Stated? Author [facility] On track(11/27/19 11:13 AM CDT) No Mando Johns RN documented as of this encounter Visit Diagnoses Not on filedocumented in this encounter Additional Health Concerns Assessment Noted Time A fall risk assessment has been complete d for the patient 11/29/2022 9:30 PM CDT documented as of this encounter Care Teams House Registry Rn Relationship Specialty Start Date End Date Whitney Burnham, JONELLE PCP - General 11/23/22 documented as of this encounter
--- OUTSIDE RECORDS SUMMARY | 2022-11-30 14:12 | XMS REPORT | Encounter Summary ---
Author Author [facility] Organization [facility] Address Unknown Phone Unavailable Care Team Providers Care Food And Nutrition Teacher Name Role Phone Whitney Burnham RN PCP Unavailable Encounter Details Date Type Department Care Team Description 11/22/2022 - 11/22/2022 12:04 AM CDT Hospital Encounter Imaging: [facility] [address] [place] [address] Discharge Disposition: Home or Self Care Social History Tobacco Use Types Packs/Day Years Used Date Smoking Tobacco: Never Assessed Alcohol Use Answer Date Recorded Alcohol Use No Male: 9+ ounces (15+ Standard Drinks) per week T hreshold Not on file Female: 4.8+ ounces (8+ Standard Drinks) per wee k Threshold 0 Sex and Gender Information Value Date Recorded Sex Assigned at Not on file Gender Identity Not on file Sexual Orientation Not on file documented as of this encounter Medications at Time of Discharge Medication Sig Dispensed Refills Start Date End Date atorvastatin (LIPITOR) 80 mg tablet one tablet by Per NG tube route at bedtime daily. 90 tablet 0 11/30/2022 carvediloL (COREG) 25 mg tabletIndications:hy pertension one tablet by Per NG tube route twice daily with meals. Take with food. Indications: high blood pressure 180 tablet 0 11/30/2022 CHOLEcalciferoL (vitamin D3) 1,000 units tablet Take five tablets by mouth daily. 0 cloNIDine (IRQFDFWJ-YIN-0) 0.2 mg/day patch Apply one patch to top of skin as directed every 7 days. 0 cloNIDine HCL (CATAPRES) 0.1 mg tablet Take one tablet by mouth every 4 hours as needed (SBP >160). 0 clopiDOGreL (PLAVIX) 75 mg tabletIndications:th rombosis prevention after PCI Take one tablet by mouth daily. Indications: blood clot prevention following percutaneous coronary intervention 0 diazePAM (VALIUM) 5 mg tabletIndications:an xiety Take one tablet by mouth three times daily as needed for Anxiety. Indications: anxious 0 11/30/2022 dicyclomine (BENTYL) 10 mg capsule Take one capsule to two capsules by mouth four times daily. 0 docusate sodium (COLACE) 50 mg/5 mL oral solution Take 10 mL by mouth twice daily. 0 11/30/2022 famotidine (PEPCID) 40 mg/5 mL (8 mg/mL) oral suspension Take 2.5 mL via feeding tube twice daily. 50 mL 0 11/30/2022 ferrous sulfate (FEOSOL) 325 mg (65 mg iron) tablet Take one tablet by mouth daily. Take on an empty stomach at least 1 hour before or 2 hours after food. 90 tablet 3 12/01/2022 nitroglycerin (NITROSTAT) 0.[address] one tablet under tongue every 5 minutes as needed for Chest Pain. Max of 3 tablets, call 911. 0 pregabalin (LYRICA) 25 mg capsule Take one capsule via feeding tube three times daily. 0 11/30/2022 topiramate (TOPAMAX) 25 mg tablet Take one tablet by mouth daily. 0 atorvastatin (LIPITOR) 80 mg tablet one tablet by Per NG tube route at bedtime daily. 90 tablet 0 11/30/2022 11/30/2022 carvediloL (COREG) 25 mg tabletIndications:hy pertension one tablet by Per NG tube route twice daily with meals. Take with food. Indications: high blood pressure 180 tablet 0 11/30/2022 11/30/2022 carvediloL (COREG) 6.25 mg tablet Take one tablet by mouth twice daily with meals. Take with food. 0 famotidine (PEPCID) 40 mg/5 mL (8 mg/mL) oral suspension Take 2.5 mL via feeding tube twice daily. 50 mL 0 11/30/2022 11/30/2022 ferrous sulfate (FEOSOL) 325 mg (65 mg iron) tablet Take one tablet by mouth daily. Take on an empty stomach at least 1 hour before or 2 hours after food. 90 tablet 3 12/01/2022 11/30/2022 pregabalin (LYRICA) 25 mg capsule Take one capsule by mouth three times daily. 0 11/30/2022 11/30/2022 pregabalin (LYRICA) 25 mg capsule Take one capsule by mouth three times daily. 0 11/30/2022 11/30/2022 documented as of this encounter Discharge Disposition Disposition Code Departure Means Destination Home or Self [facility] documented in this encounter Plan of Treatment Not on file documented as of this encounter Procedures Procedure Name Priority Date/Time Associated Diagnosis Comments CTA HEAD EXTERNAL IMAGING Routine 11/22/2022 12:00 AM CDT documented in this encounter Results * CTA HEAD EXTERNAL IMAGING (11/22/2022 12:00 AM CDT) Narrative Scheduling, Silent - 11/23/2022 7:05 AM CDT This order has been auto finalized and does not contain a result. Radiologist Outpatient RADIOLOGY EXTERNA L ORDERABLES documented in this encounter Visit Diagnoses Not on filedocumented in this encounter Additional Health Concerns Assessment Noted Time A fall risk assessment has been complete d for the patient 11/22/2022 11:55 PM CDT documented as of this encounter Care Teams Food And Nutrition Teacher Relationship Specialty Start Date End Date Whitney Burnham, JONELLE PCP - General 11/22/22 11/22/22 documented as of this encounter
--- OUTSIDE RECORDS SUMMARY | 2022-11-30 14:12 | XMS REPORT | Encounter Summary ---
Author Author [facility] Organization [facility] Address Unknown Phone Unavailable Care Team Providers Care Data Analyst Report Writer Name Role Phone Whitney Burnham RN PCP Unavailable Encounter Details Date Type Department Care Team Description 11/22/2022 12:10 AM CDT - 11/22/2022 12:14 AM CDT Hospital Encounter Imaging: [facility] [address], [address] [place] [address] Discharge Disposition: Home or Self [...] five tablets by mouth daily. 0 cloNIDine (UMNUHJRZ-GOW-0) 0.2 mg/day patch Apply one patch to [...] Comments CTA HEAD EXTERNAL IMAGING Routine 11/22/2022 12:10 AM CDT documented in this encounter Results * CTA HEAD EXTERNAL IMAGING (11/22/2022 12:10 AM CDT) Narrative Scheduling, Silent - 11/23/2022 7:07 AM [...] documented as of this encounter Care Teams Data Analyst Report Writer Relationship Specialty Start Date End Date Whitney Burnham, JONELLE PCP - General 11/22/22 11/22/22 documented as of this encounter
--- OUTSIDE RECORDS SUMMARY | 2022-11-30 14:12 | XMS REPORT | Encounter Summary ---
Author Author [facility] Organization [facility] Address Unknown Phone Unavailable Care Team Providers Care Door To Door Sales Representative Name Role Phone Whitney Burnham RN PCP Unavailable Reason for Visit * Auth/Cert (Routine) Specialty Diagnoses / Procedures Referred By Grace t Referred To Contact Diagnoses Acute ischemic stroke (HCC) stroke Referral ID Status Reason Start Date Expiration Date Visits Re quested Visits Authorized [id number] 1 1 Encounter Details Date Type Department Care Team Description 11/25/2022 12:46 PM CDT Anesthesia Event Cardiovascular [facility]: [facility] [address] [place] [address] Shyla Koehler DO [address] [place], [place] [address] [place], [place] [id number] Anesthesia Record Procedure Summary Procedure Name Responsible Anesthesiologist Anesthesia Start Time Anesthesia Stop Time TRANSESOPHAGEAL ECHO Shyla Koehler DO 11/25/22 1246 1314 Events Date Time Event Comment 11/25/2022 1230 AN Equip Check 1242 1246 Anes Start 1246 An Start Data 1246 Start Supplemental O2 1250 Anesthesia Ready 1255 Quick Note Cuff moved from leg to right arm 1310 an stop data 1314 An Stop I completed my SBAR handoff to the receiving nurse. Meds * Agents Name O2 * Blood No blood administrations on file. Lines, Drains, and Airways Type Details Placement Removal Puncture Wound (Sheath) 11/22/22; 2313; Right; Radial; 11/25/22; 18111/22/22 231 by Sandra Brooks, JONELLE 11/25/221818 by Naheed Mesa, JONELLE Peripheral IV 11/22/22; 2355; PreHospital EMS/Emergent; R; Posterior; Hand; 20 G; Symptomatic (phlebitis, pain, leaking, swelling, infiltration); 11/27/22; 1658 11/22/22 2355 by Meron Amador RN 11/27/22 1658 by Yue Salinas RN Peripheral IV 11/23/22; 0116; R; Anterior; Forearm; 20 G; Ultrasound; One (blood drawn with PIV start); 1.25 inches; Symptomatic (phlebitis, pain, leaking, swelling, infiltration); 11/28/22; 0718 11/23/22 0116 by Kat Elena BSN 11/28/22 0718 by Christian Del Castillo RN documented in this encounter Social History Tobacco Use Types Packs/Day Years [...] No 11/23/2022 documented as of this encounter OR Notes * Anesthesia Postprocedure Evaluation - Shyla Koehler DO - 11/25/2022 2:38 PM CDT Post-Anesthesia Evaluation Name: Anayeli Mobley : 1945 Age: 77 y.o. Sex: female Procedure Information Anesthesia Start Date/Time: 11/25/22 1246 Scheduled providers: Shyla Koehler DO; Naheed Martin RN Procedure: TRANSESOPHAGEAL ECHO Location: Cardiology:[facility] Post-Anesthesia Vitals BP: (P) 162/64 (11/25 1348) Pulse: (P) 73 (11/25 1348) Respirations: (P) 18 PER MINUTE (11/25 1348) SpO2: (P) 100 % (11/25 1348) O2 Device: (P) Nasal cannula (11/25 1348) No vitals data found for the desired time range. Post Anesthesia Evaluation Note Evaluation location: Pre/Post Patient participation: recovered; patient participated in evaluation Level of consciousness: alert Pain score: 0 Pain management: adequate Hydration: normovolemia Temperature: 36.0°C - 38.4°C Airway patency: adequate Perioperative Events Post-op nausea and vomiting: no PONV Postoperative Status Cardiovascular status: hemodynamically stable Respiratory status: spontaneous ventilation Perioperative Events There were no known notable events for this encounter. * Anesthesia Preprocedure Evaluation - Shyla Koehler DO - 11/25/2022 10:00 AM CDT Anesthesia Pre-Procedure Evaluation Name: Anayeli Mobley : 1945 Age: 77 y.o. Sex: female Procedure Info: Procedure Information Date/Time: 11/25/22 1330 Scheduled providers: Shyla Koehler DO Procedure: TRANSESOPHAGEAL ECHO Location: Cardiology:[facility] Physical Assessment Vital Signs (last filed in past 24 hours): BP: 181/71 (11/26 799) Temp: 36.4 °C (97.5 °F) (11/26 799) Pulse: 79 (11/26 799) Respirations: 18 PER MINUTE (11/26 799) SpO2: 96 % (11/26 799) O2 Device: Nasal cannula (11/26 399) O2 Liter Flow: 4 Lpm (11/26 399) Patient History Allergies Allergen Reactions • Amlodipine RASH • Sulfa (Sulfonamide Antibiotics) UNKNOWN Current Medications Medication Directions aspirin EC (ASPIR-LOW) 81 mg tablet Take one tablet by mouth daily. carvediloL (COREG) 12.5 mg tablet Take two tablets by mouth twice daily with meals. Take with food. Indications: high blood pressure cephalexin (KEFLEX) 500 mg capsule Take one capsule by mouth four times daily. CHOLEcalciferoL (vitamin D3) 1,000 units tablet Take five tablets by mouth daily. cloNIDine (KRKRZHOE-QPK-9) 0.3 mg/day patch Apply one patch to top of skin as directed every 28 days. clopiDOGreL (PLAVIX) 75 mg tablet Take one tablet by mouth daily. Indications: blood clot prevention following percutaneous coronary intervention diazePAM (VALIUM) 5 mg tablet Take one tablet by mouth three times daily as needed for Anxiety. Indications: anxious hydrALAZINE (APRESOLINE) 25 mg tablet Take two tablets by mouth every 8 hours. Indications: high blood pressure lisinopriL (ZESTRIL) 20 mg tablet Take two tablets by mouth daily. Indications: high blood pressure meloxicam (MOBIC) 15 mg tablet Take one tablet by mouth daily. pregabalin (LYRICA) 25 mg capsule Take one capsule by mouth three times daily. simvastatin (ZOCOR) 40 mg tablet Take one tablet by mouth at bedtime daily. Indications: excessive fat in the blood spironolactone (ALDACTONE) 50 mg tablet Take one tablet by mouth daily. Take with food. VENTOLIN HFA 90 mcg/actuation inhaler Inhale two puffs by mouth into the lungs every 4 hours as needed for Wheezing or Shortness of Breath. Indications: chronic obstructive pulmonary disease Review of Systems/Medical History patient unresponsive Patient summary reviewed Pertinent labs reviewed PONV Screening: Non-smoker and Female sex Pulmonary COPD (Home O2 4L), severe Cardiovascular Exercise tolerance: unknown Hypertension, Past UT (11/18/22): non-STEMI, acute (< 6 months) Coronary artery disease Coronary artery bypass graft (2011) PTCA: drug-eluting stent PVD Troponin 2.65 Neuro/Psych CVA (L ICA occlusion; s/p tPA), residual symptoms, < 9 Months Weakness (right) Aphasic, facial droop Endocrine/Other Anemia (Hgb 10.7) On 11/22 at approximately 1700 she developed expressive aphasia, right facial droop and right sided weakness, consistent with CVA s/p TNK was given at 1906 and transferred to Physical Exam Airway Findings Mallampati: IV TM distance: >3 FB Neck ROM: limited Mouth opening: limited Airway patency: adequate Comments: Likely limited opening and ROM due to weakness Dental Findings: Upper dentures and lower dentures Comments: Small mouth opening Cardiovascular Findings: Rhythm: regular Rate: normal Pulmonary Findings: Breath sounds clear to auscultation. Neurological Findings: Alert and oriented x 3 Constitutional findings: No acute distress Well-developed Well-nourished Other Findings: Able to understand but pt has expressive aphasia 4/5 BUE and 3/5 BUE Diagnostic Tests Hematology: Lab Results Component Value Date HGB 9.4 11/25/2022 HCT 28.9 11/25/2022 PLTCT 223 11/25/2022 WBC 8.3 11/25/2022 NEUT 65 11/25/2022 ANC 5.38 11/25/2022 ALC 1.56 11/25/2022 DOMINGO 12 11/25/2022 AMC 1.03 11/25/2022 EOSA 3 11/25/2022 ABC 0.06 11/25/2022 MCV 90.7 11/25/2022 MCH 29.4 11/25/2022 MCHC 32.4 11/25/2022 MPV 9.7 11/25/2022 RDW 13.4 11/25/2022 General Chemistry: Lab Results Component Value Date NA 141 11/25/2022 K 4.4 11/25/2022 CL 104 11/25/2022 CO2 31 11/25/2022 GAP 6 11/25/2022 BUN 25 11/25/2022 CR 0.85 11/25/2022 GLU 103 11/25/2022 CA 10.5 11/25/2022 ALBUMIN 3.6 11/23/2022 OBSCA 1.35 11/23/2022 MG 1.8 11/25/2022 TOTBILI 0.3 11/23/2022 PO4 3.2 11/25/2022 Coagulation: No results found for: "PT", "PTT", "INR" PAC Plan Anesthesia Plan ASA score: 4 Plan: MAC Special equipment/procedures: CLARISSE Induction method: intravenous NPO status: acceptable Informed Consent Anesthetic plan and risks discussed with spouse and patient. Plan discussed with: DIRECTOR DIVERSITY. Comments: (Consent done with spouse. Spouse wants to continue DNAR-FI during the procedure. He specifically does not want intubation nor chest compression. No heroic measures will be done. ) Alerts documented in this encounter Plan of Treatment Not on file documented as of this encounter Visit Diagnoses Not on filedocumented in this encounter Administered Medications Inactive Administered Medications Medication Order MAR Action Action Date Dose Rate Site lidocaine (PF) 20 mg/mL (2 %) injection Intravenous, INTRA-PROCEDURE MED, Starting on Wed11/25/22 at 1250, Until Wed11/25/22 at 1314, Anesthesia Intra-op Given 11/25/2022 12:50 PM CDT 60 mg phenylephrine (VIDYA-SYNEPHRINE) injection syringe Intravenous, INTRA-PROCEDURE MED, Starting on Wed11/25/22 at 1300, Until Wed11/25/22 at 1314, Anesthesia Intra-op Given 11/25/2022 1:00 PM CDT 100 mcg documented in this encounter Additional Health Concerns Assessment Noted Time A fall risk assessment has been complete d for the patient 11/25/2022 7:59 PM CDT documented as of this encounter Care Teams Door To Door Sales Representative Relationship Specialty Start Date End Date Whitney Burnham, JONELLE PCP - General 11/23/22 documented as of this encounter
--- OUTSIDE RECORDS SUMMARY | 2022-11-30 14:12 | XMS REPORT | Encounter Summary ---
Author Author [facility] Organization [facility] Address Unknown Phone Unavailable Care Team Providers Care Mark Up Designer Name Role Phone Whitney Burnham RN PCP Unavailable Reason for Visit * Auth/Cert (Routine) Specialty Diagnoses / Procedures Referred By Grace t Referred To Contact Diagnoses Acute ischemic stroke (HCC) stroke Referral ID Status Reason Start Date Expiration Date Visits Re quested Visits Authorized [id number] 1 1 Encounter Details Date Type Department Care Team Description 11/23/2022 1:04 AM CDT - 11/23/2022 11:59 PM CDT Hospital Encounter Vascular Access Team: [facility] [address], [address] [place] [address] Dontrell Bender, OIL AGENT-TENNIS NET MAKER [address] [id number] Discharge Disposition: Home or Self Care Social [...] No 11/23/2022 documented as of this encounter Medications at Time of Discharge Medication Sig Dispensed Refills Start Date End Date aspirin EC (ASPIR-LOW) 81 mg tablet Take one tablet by mouth daily. 0 atorvastatin (LIPITOR) 80 mg tablet one tablet by Per NG tube route at bedtime daily. 90 tablet 0 11/30/2022 carvediloL (COREG) 25 mg tabletIndications:hyp ertension one tablet by Per NG tube route twice daily with meals. Take with food. Indications: high blood pressure 180 tablet 0 11/30/2022 CHOLEcalciferoL (vitamin D3) 1,000 units tablet Take five tablets by mouth daily. 0 cloNIDine (NIEMVTMT-QDM-3) 0.2 mg/day patch Apply one patch to top of skin as directed every 7 days. 0 cloNIDine HCL (CATAPRES) 0.1 mg tablet Take one tablet by mouth every 4 hours as needed (SBP >160). 0 clopiDOGreL (PLAVIX) 75 mg tabletIndications:thr ombosis prevention after PCI Take one tablet by mouth daily. Indications: blood clot prevention following percutaneous coronary intervention 0 diazePAM (VALIUM) 5 mg tabletIndications:anx iety Take one tablet by mouth three times [...] hours after food. 90 tablet 3 12/01/2022 hydrALAZINE (APRESOLINE) 25 mg tabletIndications:hyp ertension Take two tablets by mouth every 8 hours. Indications: high blood pressure 0 lisinopriL (ZESTRIL) 20 mg tabletIndications:hyp ertension Take two tablets by mouth daily. Indications: high blood pressure 0 meloxicam (MOBIC) 15 mg tablet Take one tablet by mouth daily. 0 nitroglycerin (NITROSTAT) 0.[address] one tablet under tongue every 5 minutes as needed for Chest Pain. Max of 3 tablets, call 911. 0 pregabalin (LYRICA) 25 mg capsule Take one capsule via feeding tube three times daily. 0 11/30/2022 spironolactone (ALDACTONE) 50 mg tablet Take one tablet by mouth daily. Take with food. 0 topiramate (TOPAMAX) 25 mg tablet Take one tablet by mouth daily. 0 VENTOLIN HFA 90 mcg/actuation inhalerIndications:ch ronic obstructive pulmonary disease Inhale two puffs by mouth into the lungs every 4 hours as needed for Wheezing or Shortness of Breath. Indications: chronic obstructive pulmonary disease 0 atorvastatin (LIPITOR) 80 mg tablet one tablet by Per NG tube route at bedtime daily. 90 tablet 0 11/30/2022 11/30/2022 carvediloL (COREG) 12.5 mg tabletIndications:hyp ertension Take two tablets by mouth twice daily with meals. Take with food. Indications: high blood pressure 0 11/30/2022 carvediloL (COREG) 25 mg tabletIndications:hyp ertension one tablet by Per NG tube route twice daily with meals. Take with food. Indications: high blood pressure 180 tablet 0 11/30/2022 11/30/2022 carvediloL (COREG) 6.25 mg tablet Take one tablet by mouth twice daily with meals. Take with food. 0 11/30/2022 cephalexin (KEFLEX) 500 mg capsule Take one capsule by mouth four times daily. 0 11/30/2022 cloNIDine (OGPYPCOP-PLW-7) 0.3 mg/day patch Apply one patch to top of skin as directed every 28 days. 0 11/30/2022 diazePAM (VALIUM) 5 mg tabletIndications:anx iety Take one tablet by mouth three times daily as needed for Anxiety. Indications: anxious 0 11/30/2022 famotidine (PEPCID) 40 mg/5 mL [...] by mouth three times daily. 0 11/30/2022 simvastatin (ZOCOR) 40 mg tabletIndications:hyp erlipidemia Take one tablet by mouth at bedtime daily. Indications: excessive fat in the blood 0 11/30/2022 documented as of this encounter Discharge Disposition Disposition Code Departure Means Destination Home or Self [facility] documented in this encounter Plan of Treatment Not on file documented as of this encounter Procedures Procedure Name Priority Date/Time Associated Diagnosis Comments CONSULT VASCULAR ACCESS TEAM Routine 11/23/2022 12:20 AM CDT documented in this encounter Visit Diagnoses Not on filedocumented in this encounter Orders Procedures Count Last Ordered Date First Orde red Date CONSULT VASCULAR ACCESS TEAM 1 11/23/2022 documented in this encounter Additional Health Concerns Assessment Noted Time A fall risk assessment has been complete d for the patient 11/23/2022 8:00 PM CDT documented as of this encounter Care Teams Mark Up Designer Relationship Specialty Start Date End Date Whitney Burnham, JONELLE PCP - General 11/23/22 documented as of this encounter
--- OUTSIDE RECORDS SUMMARY | 2022-11-30 14:12 | XMS REPORT | Encounter Summary ---
Author Author [facility] Organization [facility] Address Unknown Phone Unavailable Care Team Providers Care Juvenile Probation Officer Name Role Phone Whitney Burnham RN PCP Unavailable Reason for Visit * Auth/Cert (Routine) Specialty Diagnoses / Procedures Referred By Grace t Referred To Contact Diagnoses Acute ischemic stroke (HCC) stroke Referral ID Status Reason Start Date Expiration Date Visits Re quested Visits Authorized [id number] 1 1 Encounter Details Date Type Department Care Team Description 11/28/2022 5:45 AM CDT Hospital Encounter Vascular Access Team: [facility] [address], [address] [place] [address] Topher Moy MD [address] [place] [address] Social History Tobacco Use Types Packs/Day Years [...] Type Associated Problems Recent Progress Patient-Stated? Author [facility] On track(11/27/19 11:13 AM CDT) No Mando Johns RN documented as of this encounter Procedures Procedure Name Priority Date/Time Associated Diagnosis Comments CONSULT VASCULAR ACCESS TEAM Routine 11/28/2022 3:55 AM CDT documented in this encounter Visit Diagnoses Not on filedocumented in this encounter Orders Procedures Count Last Ordered Date First Orde red Date CONSULT VASCULAR ACCESS TEAM 1 11/28/2022 documented in this encounter Additional Health Concerns Assessment Noted Time A fall risk assessment has been complete d for the patient 11/28/2022 9:00 PM CDT documented as of this encounter Care Teams Juvenile Probation Officer Relationship Specialty Start Date End Date Whitney Burnham, JONELLE PCP - General 11/23/22 documented as of this encounter
--- OUTSIDE RECORDS SUMMARY | 2022-11-30 14:12 | XMS REPORT | Encounter Summary ---
Author Author [facility] Organization [facility] Address Unknown Phone Unavailable Care Team Providers Care Shredder/Granulator Operator Name Role Phone Whitney Burnham RN PCP Unavailable Reason for Visit * Auth/Cert (Routine) Specialty Diagnoses / Procedures Referred By Grace t Referred To Contact Diagnoses Acute ischemic stroke (HCC) stroke Referral ID Status Reason Start Date Expiration Date Visits Re quested Visits Authorized [id number] 1 1 Encounter Details Date Type Department Care Team Description 11/25/2022 6:43 AM CDT - 11/25/2022 11:59 PM CDT Hospital Encounter Cardiovascular Medicine: [facility] [address] [place] [address] Marcus Villarreal, DO [address] [place] [address] Naheed Martin RN Discharge Disposition: Home or Self Care Social [...] on file documented as of this encounter Last Filed Vital Signs Vital Sign Reading Time Taken Comments Blood Pressure 141/67 11/25/2022 1:19 PM CDT Pulse 73 11/25/2022 1:19 PM CDT Temperature - - Respiratory Rate - - Oxygen Saturation 99% 11/25/2022 1:19 PM CDT Inhaled Oxygen Concentration - - Weight 60.8 kg (134 lb) 11/25/2022 1:29 PM CDT Height 152.4 cm (5') 11/25/2022 1:29 PM CDT Body Mass Index 26.17 11/25/2022 1:29 PM CDT documented in this encounter Functional Status Functional Status Response [...] five tablets by mouth daily. 0 cloNIDine ([id number]-1) 0.2 mg/day patch Apply one patch to [...] mouth four times daily. 0 11/30/2022 cloNIDine ([id number]-6) 0.3 mg/day patch Apply one patch to [...] Code Departure Means Destination Home or Self Shelter documented in this encounter Plan of Treatment Not on file documented as of this encounter Procedures Procedure Name Priority Date/Time Associated Diagnosis Comments CLARISSE W/O CONTRAST & W/ 3D ON CART Routine 11/25/2022 1:39 PM CDT documented in this encounter Visit Diagnoses Not on filedocumented in this encounter Orders Order Set Communication Count Last Ordered Date First Ordered Date ADD 3D IMAGING TO ECHO 1 11/25/2022 documented in this encounter Additional Health Concerns Assessment Noted Time A fall risk assessment has been complete d for the patient 11/25/2022 7:59 PM CDT documented as of this encounter Care Teams Shredder/Granulator Operator Relationship Specialty Start Date End Date Whitney Burnham, RN PCP - General 11/23/22 documented as of this encounter
--- OUTSIDE RECORDS SUMMARY | 2022-11-30 14:12 | XMS REPORT | Encounter Summary ---
Author Author [facility] Organization [facility] Address Unknown Phone Unavailable Care Team Providers Care Director Of Digital Platforms Name Role Phone Whitney Burnham RN PCP Unavailable Reason for Visit * Reason Comments CLARISSE Pre-Procedure Instuctions Encounter Details Date Type Department Care Team Description 11/24/2022 Documentation Cardiovascular Medicine: [facility] [address] [place] [address] Maria C Man, RN CLARISSE Pre-Procedure Instuctions Social History Tobacco Use Types Packs/Day Years [...] No 11/23/2022 documented as of this encounter Progress Notes * Maria C Man RN - 11/24/2022 4:05 PM CDT Report Sheet CLARISSE Indication: embolic event Ordering Provider: Randal Name: Anayeli Mobley Age: 77 y.o. : 1945 RM #: [id number] RN: Naheed Phone #: Isolation: none Communication Barrier: expressive aphasia NPO midnight A&O A/O X4- writing well Travel Wheelchair- assist X1 IV yes O2 4L- 3L baseline Additional Information: Lab(s) needed: Other: Device check needed: No Device: No results found for: "GENERATOR", "EPDEVTYP" Prior CLARISSE: Prior DCCV: Prior Echo:11/23/222 Previous CLARISSE/DCCV details: EF: ECHO EF Date Value Ref Range Status 11/23/2022 50 % Final Anticoag:Plavix Dose:75mg Frequency:daily Last Dose:11/24 Missed:unknown LAB: Lab Results Component Value Date/Time HGB 9.7 (L) 11/24/2022 03:46 AM PLTCT 223 11/24/2022 03:46 AM GLU 120 (H) 11/24/2022 03:46 AM NA 139 11/24/2022 03:46 AM K 4.2 11/24/2022 03:46 AM CR 0.96 11/24/2022 03:46 AM Probe Gastric Surgery GERD Swallow difficulty Head/Neck Surg/Rad Chest Surg/Rad EGD Varices/Esophag CA GI bleed Dental issues Sedation COPD yes PEDRO/CPAP Asthma Pulm HTN Anesthesia Issues Smoker ETOH & Frequency Drug Use Chronic Pain Med Current Medications: No current outpatient medications on file. Past Medical/Surgical History: Patient Active Problem List Diagnosis Date Noted • Leukocytosis 11/23/2022 • HTN (hypertension) 11/22/2022 • PAD (peripheral artery disease) ([facility]) 11/22/2022 • CAD (coronary artery disease) 11/22/2022 • COPD (chronic obstructive pulmonary disease) ([facility]) 11/22/2022 • Troponin level elevated 11/22/2022 • Tissue plasminogen activator (tPA) administered at other facility within 24 hours before current admission 11/22/2022 • Acute ischemic stroke ([facility]) 11/22/2022 • NSTEMI (non-ST elevated myocardial infarction) ([facility]) 11/18/2022 Past Medical History: Diagnosis Date • CAD (coronary artery disease) • COPD (chronic obstructive pulmonary disease) ([facility]) • HTN (hypertension) • NSTEMI (non-ST elevated myocardial infarction) ([facility]) • PAD (peripheral artery disease) ([facility]) Surgical History: Procedure Laterality Date • HX CORONARY ARTERY BYPASS GRAFT 2011 • CORONARY STENT PLACEMENT 11/18/2022 Allergies: Allergies Allergen Reactions • Amlodipine RASH • Sulfa (Sulfonamide Antibiotics) UNKNOWN Dany Carlson RN documented in this encounter Plan of Treatment Not on file documented as of this encounter Visit Diagnoses Not on filedocumented in this encounter Additional Health Concerns Assessment Noted Time A fall risk assessment has been complete d for the patient 11/24/2022 8:00 PM CDT documented as of this encounter Care Teams Director Of Digital Platforms Relationship Specialty Start Date End Date Whitney Burnham, JONELLE PCP - General 11/23/22 documented as of this encounter
--- OUTSIDE RECORDS SUMMARY | 2022-11-30 14:12 | XMS REPORT | Encounter Summary ---
Author Author [facility] Organization [facility] Address Unknown Phone Unavailable Care Team Providers Care Residential Instructor Name Role Phone Whitney Burnham RN PCP Unavailable Encounter Details Date Type Department Care Team Description 11/22/2022 12:05 AM CDT - 11/22/2022 12:09 AM CDT Hospital Encounter Imaging: [facility] [address] [place] [address] Discharge Disposition: Home or Self [...] five tablets by mouth daily. 0 cloNIDine ([id number]-3) 0.2 mg/day patch Apply one patch to [...] Comments CTA HEAD EXTERNAL IMAGING Routine 11/22/2022 12:05 AM CDT documented in this encounter Results * CTA HEAD EXTERNAL IMAGING (11/22/2022 12:05 AM CDT) Narrative Scheduling, Silent - 11/23/2022 [...] documented as of this encounter Care Teams Residential Instructor Relationship Specialty Start Date End Date Whitney Burnham, JONELLE PCP - General 11/22/22 11/22/22 documented as of this encounter
--- OUTSIDE RECORDS SUMMARY | 2022-11-30 14:12 | XMS REPORT | Encounter Summary ---
Author Author [facility] Organization [facility] Address Unknown Phone Unavailable Care Team Providers Care Portfolio Consultant Name Role Phone Whitney Burnham RN PCP Unavailable Whitney Burnham RN PCP Unavailable Reason for Visit * Auth/Cert (Routine) Specialty Diagnoses / Procedures Referred By Grace t Referred To Contact Diagnoses Acute ischemic stroke (HCC) stroke Referral ID Status Reason Start Date Expiration Date Visits Re quested Visits Authorized [id number] 1 1 Encounter Details Date Type Department Care Team Description 11/22/2022 10:42 PM CDT - 11/30/2022 11:38 AM CDT Hospital Encounter Patient Care Unit CA6: [facility] [address] [facility] [address] [place] [id number] Yanni Morrison MD [address] [place] [address] Pasha Ko DO [address] [place] [address] Laura Del Angel MD [address] [place] [address] Marcus Villarreal DO [address] [place] [address] Topher Moy MD [address] [place] [address] Anita Layton, DO [address] [place] [address] Acute ischemic stroke (HCC) Discharge Disposition: Rehab Facility (Not [facility]) Social History Tobacco Use Types Packs/Day Years [...] Mass Index 28.1 11/25/2022 7:59 PM CDT documented in this encounter Functional Status Functional Status Response Date of Assess ment Does the patient have a hearing impairment: No 11/23/2022 documented as of this encounter Discharge Summaries * Jeannette Ayala - 11/30/2022 9:43 AM CDT RISK AND INSURANCE MANAGER Note: Printed and placed transfer packet in the pt's wall unit per request from APARNA Quiroz. Jeannette Ayala Material Control Analyst For additional assistance please contact APARNA * * Blank Gupta - 11/30/2022 8:32 AM CDT Case Management Progress Note NAME:Anayeli Mobley :1945 AGE: 77 y.o. ADMISSION DATE: 11/22/2022 DAYS ADMITTED: LOS: 8 days Today's Date: 11/30/2022 PLAN: Discharge to [facility] in [place] at 1030 via family transport. Expected Discharge Date: 11/30/2022 12:00 PM Is Patient Medically Stable: Yes Are there Barriers to Discharge? no INTERVENTION/DISPOSITION: • Discharge Planning SW communicated with Dr Gallagher who reported that pt stable for dc. SW contacted May at [facility] ([phone]) who reported that able to accept pt today. SW contacted pt's spouse, Finn. He reported able to transport pt for VCP today. He will fruit picker machine operator pt at 1030. SW updated Leni at [facility]. NISSA updated Dr Gallagher. NISSA updated bedside RN. SW tasked RISK AND INSURANCE MANAGER to make and deliver transfer packet. RN report: [phone] Fax dc orders: [phone] SW faxed dc orders to [facility]. SW will continue to remain available and assist with discharge needs as they arise. • Transportation Does the Patient Need Case Management to Arrange Discharge Transport? (ex: facility, ambulance, wheelchair/stretcher, Medicaid, cab, other): No Will the Patient Use Family Transport?: Yes Transportation Name, Phone and Availability #1: Finn Mobley [phone] • Support • Info or Referral • Positive SDOH Domains and Potential Barriers • Medication Needs • Financial • Legal • Other • Discharge Disposition Selected Continued Care - Admitted Since 11/22/2022 No services have been selected for the patient. Blank Gupta NUTRITION SERVICES AIDE Inpatient Energy Crop Farmer Neurology General/Stroke/Epilepsy Available via [employer] * Blank Cloud - 11/27/2022 11:03 AM CDT Case Management Progress Note NAME:Anayeli Mobley :1945 AGE: 77 y.o. ADMISSION DATE: 11/22/2022 DAYS ADMITTED: LOS: 5 days Today's Date: 11/27/2022 PLAN: Discharge to [facility] in [place] when medically stable - likely Wednesday. Expected Discharge Date: 11/27/2022 4:00 PM Is Patient Medically Stable: No, Please explain: peg tube today Are there Barriers to Discharge? no INTERVENTION/DISPOSITION: • Discharge Planning SW spoke with team and reviewed EMR. Pt getting peg tube today. Likely ready for discharge Wednesday vs Wednesday. SW spoke with Leni at [facility] [phone]. They cannot accept on Wednesday, so willplan for Wednesday. Pt will have to arrive by 3pm. SW updated pt Finn. SW updated team. SW to follow up on Wednesday. • Transportation Does the Patient Need Case Management to Arrange Discharge Transport? (ex: facility, ambulance, wheelchair/stretcher, Medicaid, cab, other): No Will the Patient Use Family Transport?: Yes Transportation Name, Phone and Availability #1: Finn Mobley [phone] • Support • Info or Referral • Positive SDOH Domains and Potential Barriers • Medication Needs • Financial • Legal • Other • Discharge Disposition Selected Continued Care - Admitted Since 11/22/2022 No services have been selected for the patient. Blank Cloud Available on Vo[employer] * Jeannette Ayala - 11/26/2022 1:41 PM CDT RISK AND INSURANCE MANAGER Note: Printed and RISK AND INSURANCE MANAGER Fern placed transfer packet in the pt's wall unit per request from NISSA Fontanez. Jeannette Ayala Material Control Analyst For additional assistance please contact [facility] * * Ирина Rutledge LMSW - 11/26/2022 10:29 AM CDT Case Management Progress Note NAME:Anayeli Mobley :1945 AGE: 77 y.o. ADMISSION DATE: 11/22/2022 DAYS ADMITTED: LOS: 4 days Today's Date: 11/26/2022 PLAN: D/c to [facility] tomorrow Expected Discharge Date: 11/27/2022 4:00 PM Is Patient Medically Stable: No, Please explain: medical w/u Are there Barriers to Discharge? no INTERVENTION/DISPOSITION: • Discharge Planning Per primary team - pt will be stable to d/c to [facility] tomorrow. SW spoke with May, and they can accept pt on corpak. SW updated team. NISSA spoke with pt spouse - he is currently in hospitaland has portable oxygen tank for transport. SW to [facility] for transfer packet in anticipation of d/c tomorrow. SW to f/u tomorrow to complete d/c planning. Nurse report: [phone] Pt must be admitted before 1500 • Transportation Does the Patient Need Case Management to Arrange Discharge Transport? (ex: facility, ambulance, wheelchair/stretcher, Medicaid, cab, other): No Will the Patient Use Family Transport?: Yes Transportation Name, Phone and Availability #1: Finn Mobley [phone] • Support • Info or Referral • Positive SDOH Domains and Potential Barriers • Medication Needs • Financial • Legal • Other • Discharge Disposition Selected Continued Care - Admitted Since 11/22/2022 No services have been selected for the patient. Ирина Rutledge LMSW Available on [employer] Work * Ninoska Baez LMSW - 11/25/2022 8:38 AM CDT Case Management Progress Note NAME:Anayeli Mobley :1945 AGE: 77 y.o. ADMISSION DATE: 11/22/2022 DAYS ADMITTED: LOS: 3 days Today's Date: 11/25/2022 PLAN: Anticipate dc to [facility] pending medical stability. Expected Discharge Date: 11/27/2022 4:00 PM Is Patient Medically Stable: No, Please explain: CLARISSE today and VSS tomorrow Are there Barriers to Discharge? no INTERVENTION/DISPOSITION: • Discharge Planning SW checked with Leni at [facility] to make sure she received the referral late yesterday. She hadn't received it. SW refaxed it and confirmed the fax number. NISSA reviewed EMR and met with [facility] and neurosurgery team for huddle to discuss plan of care. Pt is getting CLARISSE today and VSS tomorrow. Could be ready Wednesday for rehab. [facility] can accept. SW reached out to therapy to see if family can transport pt to [place] if they are comfortable with it. Family could transport. She is on 4 lpm of oxygen so they would have to bring a portable tank. Will discuss with family. SW met with at bedside. He feels comfortable transporting pt to [place] once she is ready. He has a portable oxygen tank he can bring with him. SW will keep him updated on when pt may be ready. He was hoping she could go Wednesday as he needs to get back to work. • Transportation Does the Patient Need Case Management to Arrange Discharge Transport? (ex: facility, ambulance, wheelchair/stretcher, Medicaid, cab, other): No Will the Patient Use Family Transport?: Yes Transportation Name, Phone and Availability #1: Finn Mobley [phone] • Support • Info or Referral • Positive SDOH Domains and Potential Barriers • Medication Needs • Financial • Legal • Other • Discharge Disposition Selected Continued Care - Admitted Since 11/22/2022 No services have been selected for the patient. Ninoska Baez LMSW Social Work Case Management Available on [employer] * Ninoska Baez LMSW - 11/24/2022 5:15 PM CDT Case Management Progress Note NAME:Anayeli Mobley :1945 AGE: 77 y.o. ADMISSION DATE: 11/22/2022 DAYS ADMITTED: LOS: 2 days Today's Date: 11/24/2022 PLAN: Anticipate dc to IPR setting pending medical stability and facility acceptance. Expected Discharge Date: 11/27/2022 4:00 PM Is Patient Medically Stable: No, Please explain: ongoing medical care Are there Barriers to Discharge? no INTERVENTION/DISPOSITION: • Discharge Planning SW reviewed EMR and pt has inpatient setting recs, specifically IPR. Assessment indicates pt wants to go to to rehab closer to home. SW sent a referral to [facility]. • Transportation Does the Patient Need Case Management to Arrange Discharge Transport? (ex: facility, ambulance, wheelchair/stretcher, Medicaid, cab, other): No Will the Patient Use Family Transport?: Yes Transportation Name, Phone and Availability #1: Finn Mobley [phone] • Support • Info or Referral • Positive SDOH Domains and Potential Barriers • Medication Needs • Financial • Legal • Other • Discharge Disposition Selected Continued Care - Admitted Since 11/22/2022 No services have been selected for the patient. Ninoska Baez LMSW Social Work Case Management Available on [employer] * June Quiroz RN - 11/24/2022 1:26 PM CDT I received call from Tiara with [facility] [phone]. Patient is current with their agency. If patient ends up going home on DC, they will need LILLIE orders. June Aguilar RN, BSN, ACM Integrated Nurse Steel Die Press Set Up Operator Neurology Service * Naheed Villarreal LMSW - 11/23/2022 2:10 PM CDT Case Management Admission Assessment NAME:Anayeli Mobley :1945 AGE: 77 y.o. ADMISSION DATE: 11/22/2022 DAYS ADMITTED: LOS: 1 day Today’s Date: 11/23/2022 Source of Information: Pt and Spouse at bedside Plan Plan: Case Management Assessment, Psychosocial Assessment, Discharge Planning for Post-Acute Facility, Assist PRN with SW/NCM Services This CM met with pt for assessment on this date. Provided contact information and explanation of SW/NCM roles. Reviewed [facility], Preparing for Discharge, and Preferred Provider Network hand-outs. Provided opportunity for questions and discussion. Pt/family encouraged to contact Case Management team with questions and concerns during hospitalization and until patient is able to transition back to the patient's primary care physician. Pt admitted to [facility] on 11/22/22 for Acute Ischemic Stroke s/p TNK. Pt was current with [facility] out of [place], [place]. Previously receiving 4L O2 oxygen at home through [facility]. Pt was living at home in prior to admission. Spouse, Finn, works [employer] 3-4 weeks at a time. At dc Finn anticipates being able to stay w/pt temporarily. Daughter, Vidhi, lives closeby, but has own family. Finn agreeable to explore private duty if needed. PT/OT recommendations for IPR. Pt and spouse would prefer location close to home. Pt previously inependent at baseline prior to admission except for driving. CM will continue to follow for dc planning needs. Patient Address/Phone [address] [place] [phone] (home) Emergency Contact Extended Emergency Contact Information Primary Emergency Contact: Finn Mobley Mobile Relation: Spouse Secondary Emergency Contact: Vidhi Knight Mobile Relation: Daughter Healthcare Directive SW provided DPOA form for pt and spouse to review. SW to f/u and complete DPOA paperwork. Transportation Does the Patient Need Case Management to Arrange Discharge Transport? (ex: facility, ambulance, wheelchair/stretcher, Medicaid, cab, other): No Will the Patient Use Family Transport?: Yes Transportation Name, Phone and Availability #1: Finn Mobley [phone] Expected Discharge Date 11/27/2022 4:00 PM Living Situation Prior to Admission • Living Arrangements Type of Residence: Home, independent Living Arrangements: Spouse/significant other Bathroom Shower / Tub: Walk-in Shower How many levels in the residence?: 1 Can patient live on one level if needed?: Yes Does residence have entry and/or inside stairs?: No (ramp to enter) Assistance needed prior to admit or anticipated on discharge: Yes Who provides assistance or could if needed?: Finn, spouse; friends Are they in good health?: Yes Can support system provide 21/09 care if needed?: Maybe (spouse and friends) • Level of Function Prior level of function: Independent (pt doesn't drive) • Cognitive Abilities Cognitive Abilities: Alert and Oriented, Engages in problem solving and planning, Participates in decision making Financial Resources • Coverage Primary Insurance: Medicare Secondary Insurance: Medicare Supplement • Source of Income Source Of Income: SSI • Financial Assistance Needed? N/A Psychosocial Needs • Mental Health Mental Health History: No • Substance Use History Substance Use History Screen: In the past Comment: Tobacco- pt reports quitting recently • Other N/A Current/Previous Services • PCP Whitney Burnham, None, None • Pharmacy No Pharmacies Listed • Durable Medical Equipment Durable Medical Equipment at home: Oxygen, Other (comment) (ramp to enter RV) • Home Health Receiving home health: Yes Agency name: [facility] Would patient use this agency again?: Yes • Hemodialysis or Peritoneal Dialysis Undergoing hemodialysis or peritoneal dialysis: No • Tube/Enteral Feeds Receive tube/enteral feeds: Yes Source of feeds: NGT (current this admission) • Infusion Receive infusions: No • Private Duty Private duty help used: No • Home and Community Based Services Home and community based services: No • [place] White [place] White: N/A • Hospice Hospice: No • Outpatient Therapy PT: No OT: No SPACE OFFICER: No • Retirement Facility/Alf SNF: No NH: No • Inpatient Rehab IPR: No • Long-Term Acute Care Hospital LTACH: No • Acute Hospital Stay Acute Hospital Stay: In the past Was patient's stay within the last 30 days?: Yes Name of Hospital: Other (comment) ([facility]) When did patient receive care?: 11/18/22 dc from [facility]; 11/22/22 tx to [facility] from [facility] Villar[facility] LMSW Available on Vo[employer]te documented in this encounter Medications at Time of Discharge Medication Sig Dispensed Refills Start Date End Date aspirin EC (ASPIR-LOW) 81 mg tablet Take one tablet by mouth daily. 0 atorvastatin (LIPITOR) 80 mg tablet one tablet by Per NG tube route at bedtime daily. 90 tablet 0 11/30/2022 carvediloL (COREG) 25 mg tabletIndications:hype rtension one tablet by Per NG tube route twice daily with meals. Take with food. Indications: high blood pressure 180 tablet 0 11/30/2022 CHOLEcalciferoL (vitamin D3) 1,000 units tablet Take five tablets by mouth daily. 0 cloNIDine (DFNNQOCP-XEX-3) 0.2 mg/day patch Apply one patch to top of skin as directed every 7 days. 0 cloNIDine HCL (CATAPRES) 0.1 mg tablet Take one tablet by mouth every 4 hours as needed (SBP >160). 0 clopiDOGreL (PLAVIX) 75 mg tabletIndications:thro mbosis prevention after PCI Take one tablet by mouth daily. Indications: blood clot prevention following percutaneous coronary intervention 0 diazePAM (VALIUM) 5 mg tabletIndications:anxi ety Take one tablet by mouth three times [...] tablet 3 12/01/2022 hydrALAZINE (APRESOLINE) 25 mg tabletIndications:hype rtension Take two tablets by mouth every 8 hours. Indications: high blood pressure 0 lisinopriL (ZESTRIL) 20 mg tabletIndications:hype rtension Take two tablets by mouth daily. Indications: [...] mouth daily. 0 VENTOLIN HFA 90 mcg/actuation inhalerIndications:chr onic obstructive pulmonary disease Inhale two puffs by mouth into the lungs every 4 hours as needed for Wheezing or Shortness of Breath. Indications: chronic obstructive pulmonary disease 0 documented as of this encounter Ordered Prescriptions Prescription Sig Dispensed Refills Start Date End Da te pregabalin (LYRICA) 25 mg capsule Take one capsule via feeding tube three times daily. 0 11/30/2022 docusate sodium (COLACE) 50 mg/5 mL oral solution Take 10 mL by mouth twice daily. 0 11/30/2022 ferrous sulfate (FEOSOL) 325 mg (65 mg iron) tablet Take one tablet by mouth daily. Take on an empty stomach at least 1 hour before or 2 hours after food. 90 tablet 3 12/01/2022 famotidine (PEPCID) 40 mg/5 mL (8 mg/mL) oral suspension Take 2.5 mL via feeding tube twice daily. 50 mL 0 11/30/2022 atorvastatin (LIPITOR) 80 mg tablet one tablet by Per NG tube route at bedtime daily. 90 tablet 0 11/30/2022 carvediloL (COREG) 25 mg tabletIndications:hyper tension one tablet by Per NG tube route twice daily with meals. Take with food. Indications: high blood pressure 180 tablet 0 11/30/2022 diazePAM (VALIUM) 5 mg tabletIndications:anxie ty Take one tablet by mouth three times daily as needed for Anxiety. Indications: anxious 0 11/30/2022 pregabalin (LYRICA) 25 mg capsule Take one capsule by mouth three times daily. 0 11/30/2022 11/30/2022 ferrous sulfate (FEOSOL) 325 mg (65 mg iron) tablet Take one tablet by mouth daily. Take on an empty stomach at least 1 hour before or 2 hours after food. 90 tablet 3 12/01/2022 11/30/2022 famotidine (PEPCID) 40 mg/5 mL (8 mg/mL) oral suspension Take 2.5 mL via feeding tube twice daily. 50 mL 0 11/30/2022 11/30/2022 atorvastatin (LIPITOR) 80 mg tablet one tablet by Per NG tube route at bedtime daily. 90 tablet 0 11/30/2022 11/30/2022 pregabalin (LYRICA) 25 mg capsule Take one capsule by mouth three times daily. 0 11/30/2022 11/30/2022 carvediloL (COREG) 25 mg tabletIndications:hyper tension one tablet by Per NG tube route twice daily with meals. Take with food. Indications: high blood pressure 180 tablet 0 11/30/2022 11/30/2022 documented in this encounter Discharge Disposition Disposition Code Departure Means Destination Rehab Facility (Not TUS) Wheelchair documented in this encounter Progress Notes * Dexter Villasenor RT - 11/29/2022 11:44 AM CDT RT Adult Assessment Note NAME:Anayeli Mobley :1945 AGE: 77 y.o. ADMISSION DATE: 11/22/2022 DAYS ADMITTED: LOS: 7 days RT Treatment Plan: Protocol Plan: Medications Albuterol: Nebulizer PRN Ipratropium: Nebulizer PRN Protocol Plan: Procedures Oxygen/Humidity: O2 to keep SpO2 > 92%, if on room air for > 24 hours and no other RT modalities are required, then D/C protocol SpO2: BID & PRN Additional Comments: Impressions of the patient: Patient on 2lpm with and spo2 of 99%. Does not appear to be SOA. Patient sitting in the chair watching TV. Vital Signs: Pulse: 93 RR: SpO2: O2 Device: Nasal cannula Liter Flow: 2 Lpm O2%: Breath Sounds: Respiratory Effort: * Rosita Marcos APRN-CAUSTIC PREPARER - 11/29/2022 9:24 AM CDT Interventional Radiology Progress Note Gastrostomy tube evaluated at bedside. Gastrostomy tube remains in tract, emre disc tightened at bedside. Abd xray ordered and pending. Should be okay to use after placement confirmation. Will communicate directly with bedside RN. OSEAS Salinas Pgr [phone] Thank you for allowing us to participate in the care of this patient. Please call with questions orconcerns. If calling after hours or over the weekend please page the IR resident pinion and wheel truer @ . * Rashida Barragan RN - 11/29/2022 9:24 AM CDT 0924: Patient with g tube displaced overnight. Dr. Gallagher with neurology stroke notified. Ordersfor abdominal X ray and IR to see patient prior to use. 0934: Patient with BP of 195/77. Patient unable to receive oral medications until g tube verified. Dr. Gallagher notified. Orders for 10 mg IV Hydralazine once. 1008: repeat BP following Hydralazine 151/70. * Matt Gallagher MD - 11/29/2022 7:33 AM CDT Vascular Neurology Progress Note Today's Date: 11/29/2022 Name: Anayeli Mobley Admission Date: 11/22/2022 LOS: 7 days Assessment/Plan: Principal Problem: Acute ischemic stroke (HCC) Active Problems: HTN (hypertension) PAD (peripheral artery disease) (HCC) CAD (coronary artery disease) NSTEMI (non-ST elevated myocardial infarction) (HCC) COPD (chronic obstructive pulmonary disease) (HCC) Troponin level elevated Tissue plasminogen activator (tPA) administered at other facility within 24 hours before current admission PEG (percutaneous endoscopic gastrostomy) status (HCC) Anemia in other chronic diseases classified elsewhere Acute renal insufficiency Anayeli Mobley is a 77 y.o. female with HTN, PAD, CAD s/p CABG, NSTEMI s/p coronary stenting, and COPDwho was recently discharged from the hospital on 11/18 for NSTEMI with coronary stenting. On 11/22 atapproximately 1700 she developed expressive aphasia, right facial droop and right sided weakness and presented to OSH ED where she was stroke activated. HCT was obtained and negative for acute hemorrhage and demonstrated a left hypodensity in the left kramer radiata. CTA/P was complicated d/t extravisation of contrast and had poor image quality. TNK was given at 1906 and transferred to for possible IR intervention. Patient had digital subtraction angiography with cerebral angiography negative for LVO but showing 50% stenosis of proximal ICA, without large vessel occlusion. MRI revealed multiple small bilateral strokes in the left precentral gyrus-opercular region, anterior left periventricular frontal lobe, right middle frontal gyrus, and right external capsule. Plan for rehab discharge on Wednesday. Current Exam: Awake, alert, expressive aphasia with no verbal output, comprhension intact; able to nod yes/no appropriately and write out some responses with some word repetition in written sentences. Parts of written sentences are non-sensible. No focal weakness or sensory deficit. Patient appeared less lethargic and more communicative than in previous exams. Imaging: - CT Head @ OSH: small hypodensity in the left kramer radiata - CTA H/N @ OSH: Soft plaque at left ICA causing severe stenosis. Poor image quality d/t poor contrast bolus timing and venous contamination - CTP @ OSH: global hypoperfusion, nondiagnostic - IR Angiogram 11/22: Negative for LVO. 50% stenosis of proximal ICA - MRI Head 11/23: Acute to early subacute cortical-subcortical infarcts involving the left precentral gyrus-frontal opercular region, anterior left periventricular frontal lobe, right middle frontal gyrus, and right external capsule. Additional tiny acute to early subacute left cerebellar infarct. Several tiny chronic bilateral basal ganglia-capsular lacunar infarcts Mild cerebral volume loss and mild patchy supratentorial white matter and pontine FLAIR hyperintensities, likely sequela of chronic microvascular ischemia. - TTE 11/24: LV apex is akinetic, LV ejection fraction 50-55%. Mildly dilated left atrium, bubble study was suboptimal but without evidence of intracardiac [id number] shunting - CLARISSE 11/25: LV normal size. Borderline LV systolic function at 50%. Apical akinesis without definitive thrombus. No left atrial appendage thrombus. Aneurysmal atrial septum, which is intact w/out significant right to left shunting. Mitral valve sclerosis w moderate annular calcification. Mod-severe atheromatous changes in the aortic arch and descending thoracic aorta. - Video swallow 11/26: mild-moderate oropharyngeal dysphagia. Recommends full liquid diet w ongoing event operations manager intervention to monitor need for supplemental non-oral nutrition. - CT head wo 11/26: No evidence of acute hemorrhage or mass effect; evolving small LMCA infarct. - obtained due to concern for subjective decline in arousal, increased drowsiness. - CT head wo 11/27: Grossly stable small left lateral perirolandic MCA territory infarct. No evidence of hemorrhagic conversion or obvious new infarct. Mild patchy cerebral white matter hypodensitiesand tiny chronic bilateral basal ganglia-capsular lacunar type infarcts, likely sequela of chronic small vessel ischemic change. - CTA head/neck 11/27: stable without change from prior imaging 11/22 (obtained due to patient being re-stroke activated. See ASRT note 11/27 for full details) Labs LDL- 89 A1c - 5.4 Hgb - 8.1 (11/29) down from 10.2 on admission (11/23) Acute Ischemic Strokes, multifocal Dysphagia NSTEMI s/p stenting (11/18) CAD s/p CABG COPD with chronic hypoxia (4L O2 at baseline) Peg in placement - Last known normal 11/22 @1700 - TNK given 11/22 @1906 - Etiology: Suspect cardioembolic - On LONE LEAD LINEMAN DAPT for cardiac reasons with recent stenting - CLARISSE completed 11/25: No evidence of definitive thrombus. LV apical akinesis, aneurysmal atrial septum. - Video swallow recommendation full liquid diet w event operations manager intervention - Patient not able to tolerate supplemental oral nutrition well as of 11/27. Tried a chocolate protein milkshake but did not like how it tasted and nursing commented that she was unable to completely swallow all of it. PLAN: > Continue DAPT Aspirin 81mg, Plavix 75mg (restarted 11/23 pm), originally stated for cardiac reasons following stenting > PEG placement 11/27 and replaced on 11/29 after it fell off - Meds per PEG 12 hours after placement, and resume TF 24h after placement (1750 on 11/28) - Post-op pain management PRN - Appreciate nutrition recs once PEG in > Cont LONE LEAD LINEMAN inhalers for COPD > Nicotine replacment patch > PT/OT/Rehab medicine recommending inpatient setting on discharge > MCOT on discharge Acute renal insufficiency, resolved - Baseline around 0.8 - Cr increased to 1.2 on 11/27 - Back to baseline 11/28 HTN > SBP goal normotensive - Cont LONE LEAD LINEMAN Lisinopril 40mg daily - Resume LONE LEAD LINEMAN Hydralazine 50mg TID - Holding LONE LEAD LINEMAN Clonidine patch - Resumed LONE LEAD LINEMAN Spironolactone, however at 25 mg daily instead of LONE LEAD LINEMAN 50mg - Can consider restarting full dose of Alexx tomorrow - Once Hydra today 10 mg > Cont LONE LEAD LINEMAN Coreg 25mg daily Anemia - Hb slowly declining since admission (10.2), now at 8.1 - Normocytic anemia (MCV 92.1) - Iron panel: Iron 26 (low), %sat 9 (low), TIBC 294 and ferritin 123 PLAN: > no evidence of hematoma in R radial site access > Patient with blood around PEG site, follow up with KUB > CTM with daily CBCs Mild hyperlipidemia - LDL 89; goal <70. Medication therapy increased to Atorvastatin 80mg/day FEN: IVF prn, replace lytes prn, Diet NPO PPX: Lovenox Code status: DNAR-Full Intervention Disposition: Continued admission to Stroke. PT/OT/Rehab medicine [facility] Anticipate dc to [facility] pending medical stability, likely on Wednesday as facility does not accept new patients on the weekend. Patient seen and discussed with Chinmay Gallagher MD Neurology, PGY-2 Available on Voalte Subjective: Anayeli Mobley is a 77 y.o. female. Patient's PEG tube fell off this morning and was noticed more blood around it. PEG repositioned. Objective: Vitals: 11/28/22 1645 11/28/22 2100 11/29/22 0421 11/29/22 0600 BP: (!) 160/74 (!) 148/69 (!) 145/87 BP Source: Arm, Left Upper Arm, Left Upper Arm, Left Upper Pulse: 92 78 81 Temp: 36.7 °C (98 °F) 36.8 °C (98.3 °F) 36.6 °C (97.8 °F) SpO2: (!) 91% 97% 98% O2 Percent: O2 Device: Nasal cannula Nasal cannula Nasal cannula O2 Liter Flow: 2 Lpm 2 Lpm Weight: 63 kg (138 lb 14.2 oz) Height: Vital Signs: Last Filed Vital Signs: 24 Hour Range BP: 145/87 (11/29 420) Temp: 36.6 °C (97.8 °F) (11/29 420) Pulse: 81 (11/29 420) Respirations: 18 PER MINUTE (11/29 420) SpO2: 98 % (11/29 420) O2 Device: Nasal cannula (11/29 420) O2 Liter Flow: 2 Lpm (11/29 420) BP: (145-167)/(58-87) Temp: [36.6 °C (97.8 °F)-37.1 °C (98.7 °F)] Pulse: [75-92] Respirations: [18 PER MINUTE-20 PER MINUTE] SpO2: [91 %-98 %] O2 Device: Nasal cannula O2 Liter Flow: 2 Lpm Intensity Pain Scale (Self Report): (not recorded) Intake/Output Summary: (Last 24 hours) Intake/Output Summary (Last 24 hours) at 11/29/2022 0733 Last data filed at 11/28/2022 2202 Gross per 24 hour Intake 1140 ml Output 0 ml Net 1140 ml Stool Occurrence: 0 Medications: Scheduled Meds:aspirin chewable tablet 81 mg, 81 mg, Per NG tube, QDAY atorvastatin (LIPITOR) tablet 80 mg, 80 mg, Per NG tube, QHS carvediloL (COREG) tablet 25 mg, 25 mg, Per NG tube, BID w/meals CHOLEcalciferoL (vitamin D3) tablet 5,000 Units, 5,000 Units, Oral, QDAY clopiDOGreL (PLAVIX) tablet 75 mg, 75 mg, Per NG tube, QDAY Diet Enteral Feeding Bolus, , SEE ADMIN INSTRUCTIONS, QID (8,12,16,20) And Water Bolus, 150 mL, PEG Tube, BID senna (SENOKOT) oral syrup 8.8 mg, 8.8 mg, Oral, BID And docusate sodium (COLACE) oral solution 100 mg, 100 mg, Oral, BID enoxaparin (LOVENOX) syringe 40 mg, 40 mg, Subcutaneous, QDAY(21) hydrALAZINE (APRESOLINE) tablet 50 mg, 50 mg, Per G Tube, Q8H* lidocaine (LIDODERM) 5 % topical patch 1 patch, 1 patch, Topical, QDAY lisinopriL (ZESTRIL) tablet 40 mg, 40 mg, Per NG tube, QDAY milk of magnesium oral suspension 30 mL, 30 mL, Per NG tube, QDAY nicotine (NICODERM CQ) 21 mg/day patch 1 patch, 1 patch, Transdermal, QDAY pregabalin (LYRICA) capsule 25 mg, 25 mg, Feeding Tube, TID Continuous Infusions: PRN and Respiratory Meds:acetaminophen Q4H PRN, albuterol-ipratropium Q4H PRN, ondansetron (ZOFRAN)IV Q6H PRN, pancrelipase 20,880 Units/sodium bicarbonate 650 mg (KU CLOG DESTROYER) PRN (Mobility Engineer from Rx) General physical exam: Physical Exam: General: Alert, cooperative, no distress, appears stated age Head: Normocephalic, corpak tube in place Eyes: Conjunctivae/corneas clear. Abd: PEG tube in place with some blood on the dressing Extremities: Extremities normal, atraumatic, no cyanosis or edema Skin: Skin color, texture, turgor normal. Neuro exam: Mental status: alert, oriented to person/place/time Speech: Expressive aphasia, no verbal speech output. Comprehension mostly intact and able to followcommands. Cranial Nerves: Normal Abnormal II Pupils reactive, visual felton normal III, IV, no nystagmus V Sensation nml V1-V3 VII Mild right facial droop VIII Decreased hearing bilaterally, reports this is her baseline IX, X +strong cough XI Equal shoulder shrug XII Tongue midline Muscle/motor: Normal tone/bulk. Weakness in elbow flexion/extension seen on RUE compared to LUE. Otherwise symmetric minimal weakness 4+/5 throughout in bilateral upper and lower extremities. Sensation: intact to light touch in bilateral upper and lower extremities Coordination: Heel to cruz and finger to nose without ataxia bilaterally. Gait and Sation: deferred Reflexes: symmetric 2+ throughout in bilateral upper and lower extremities Laboratory Review: No results found for: "PHART", "PCO2A", "PO2ART", "HCO3A", "BASEEXA", "BASEDEFA", "[id number]" Lab Results Component Value Date HGB 8.1 (L) 11/29/2022 HCT 25.0 (L) 11/29/2022 PLTCT 216 11/29/2022 WBC 9.3 11/29/2022 NEUT 69 11/27/2022 ANC 5.67 11/27/2022 Lab Results Component Value Date NA 140 11/29/2022 K 4.0 11/29/2022 CL 98 11/29/2022 CO2 33 (H) 11/29/2022 GAP 9 11/29/2022 BUN 25 11/29/2022 CR 0.81 11/29/2022 GLU 130 (H) 11/29/2022 CA 10.1 11/29/2022 MG 1.7 11/29/2022 PO4 2.8 11/29/2022 OBSCA 1.35 (H) 11/23/2022 TOTPROT 6.1 11/29/2022 AST 16 11/29/2022 ALT 10 11/29/2022 ALKPHOS 69 11/29/2022 No results found for: "TNI", "CKMB", "MYOGLB" No results found for: "PTT", "INR", "FIB", "DIMER", "FDP" No results found for: "TSH", "RGEEX8K", "CORTRAN" Lab Results Component Value Date CHOL 145 11/23/2022 TRIG 111 11/23/2022 HDL 38 (L) 11/23/2022 LDL 89 11/23/2022 VLDL 22 11/23/2022 No results found for: "VANRAN", "VANPK", "VANTR" No results found for: "CYCLOSPOR", "TACROLIMUS", "FREEPHENY" Point of Care Testing: (Last 24 hours): Glucose: (!) 130 POC Glucose (Download): (!) 103 Radiology and Other Diagnostics Review: CTA HEAD WO/W CONT Final Result CTA head: 1. Severe multifocal intracranial arterial stenosis (most pronounced at the bilateral intracranialinternal carotid arteries, left M1 segment, a right [...] ICA origin and 50% stenosis of the leftICA origin by NASCET criteria. 2. Persistent occlusion [...] Kadi Alston MD on 11/27/2022 1:38 PM. CTA NECK WO/W CONT Final Result CTA head: 1. Severe multifocal intracranial arterial stenosis (most pronounced at the bilateral intracranialinternal carotid arteries, left M1 segment, a right [...] ICA origin and 50% stenosis of the leftICA origin by NASCET criteria. 2. Persistent occlusion [...] Kadi Alston MD on 11/27/2022 1:[address] HEAD WO CONTRAST Final Result 1. Grossly stable small left lateral perirolandic [...] interpretations and opinions expressed in this report CT HEAD WO CONTRAST Final Result 1. Evolving small left MCA territory infarct. No evidence of hemorrhagic conversion or significantintracranial mass effect. Additional tiny recent infarcts better demonstrated on comparison MRI. 2. Mild patchy cerebral white matter hypodensities and tiny chronic bilateral basal ganglia lacunar type infarcts, likely sequela of chronic small vessel ischemic change. Finalized by Anabel Subramanian D.O. on 11/26/2022 1:26 PM. Dictated by Anabel Subramanian D.O. on 11/26/2022 1:10 PM. SWALLOW MOTION SERIES Final Result FINDINGS/IMPRESSION: 1. Laryngeal penetration with thin and [...] Christian Bundy M.D. on 11/26/2022 9:54 AM. FEEDING TUBE PLCMNT (ABD/CHEST LMTD) Final Result Findings/impression: The lower thorax and abdomen are included in the [id number]. There has been interval advancementof the nasoenteric catheter with its tip now overlying the region of the gastric outlet. Finalized by Harpreet Yoon D.O. on 11/26/2022 9:19 AM. Dictated by Harpreet Yoon D.O. on 11/26/2022 9:14 AM. TRANSESOPHAGEAL ECHO Final Result FEEDING TUBE PLCMNT (ABD/CHEST LMTD) Final Result Enteric tube as above. Consider advancement for postpyloric positioning. By my electronic signature, I attest that I have personally reviewed the images for this examination and formulated the interpretations and opinions expressed in this report Finalized by Harpreet Yoon D.O. on 11/24/2022 9:04 AM. Dictated by Christian Bundy M.D. on 11/24/2022 8:22 AM. FEEDING TUBE PLCMNT (ABD/CHEST LMTD) Final Result Findings/impression: Single AP projection of the lower chest and upper abdomen was obtained. Portions of the left lower chest and abdomen were not included within the [id number]. Indwelling enteric tube with the distal tip terminating over the stomach. Prior median sternotomy and CABG. No gas distended loops of bowel within the visualized abdomen. Finalized by Kat Navarro M.D. on 11/23/2022 11:42 AM. Dictated by Kat Navarro M.D.on 11/23/2022 11:41 AM. 2D + DOPPLER ECHO Final Result MRI HEAD WO CONTRAST Final Result 1. Acute to early subacute cortical-subcortical infarcts [...] AM. Dictated by Luis Gupta MD on 34:38 AM. IR CEREBRAL ARTERIOGRAM DIAGNOSTIC WITH INTERVENTION Final Result 1. Mild stenosis of the proximal ICA [...] formulated the interpretations and opinions expressed in thisreport. @TT Finalized by Mikal Hicks M.D. on 11/23/2022 9:14 AM. Dictated by Mikal Hicks M.D. on 11/23/2022 8:[address] HEAD EXTERNAL IMAGING Final Result CTA HEAD EXTERNAL IMAGING Final Result CTA HEAD EXTERNAL IMAGING Final Result CTA HEAD EXTERNAL IMAGING Final Result IR GASTROSTOMY TUBE PLACEMENT (Results Pending) ABDOMEN 1 VIEW (Results Pending) Associated attestation - Topher Moy MD - 11/29/2022 6:07 PM CDT I personally performed the fofana portions of the E/M visit on : 11/29/22, I discussed case with resident and concur with resident documentation of history, physical exam, assessment, and treatment planunless otherwise noted. 77 y.o. female with HTN, PAD, CAD s/p CABG, NSTEMI s/p coronary stenting, and COPD who was recentlydischarged from the hospital on 11/18 for NSTEMI with coronary stenting. she developed expressive aphasia, right facial droop and right sided weakness and presented to [facility] ED on 11/22. HCT negative foracute hemorrhage and demonstrated a left hypodensity in the left kramer radiata. CTA/P was complicated d/t extravisation of contrast and had poor image quality. TNK was given and transferred to for possible IR intervention. Patient had digital subtraction angiography with cerebral angiography negative for LVO but showing 50% stenosis of proximal ICA, without large vessel occlusion. MRI revealed multiple small bilateral strokes in the left precentral gyrus-opercular region, anterior left periventricular frontal lobe, right middle frontal gyrus, and right external capsule. Exam; aphagia. able to write simple sentences. Bi-hemispheric stroke. on DAPT. MCOT on discharge. Pt is stable. s/p peg. Peg dislodged sat night. Ir nurse evaluated at bedside, oked to use. Ready to go to rehab in [place]. * Kayla Epperson RN - 11/29/2022 5:38 AM CDT Vascular Access Team consulted to obtain lab specimen. Ultrasound Used: Yes How Many Attempts: 1 Location of Unsuccessful Attempts: na At 0530 approximately 5 ml of blood obtained from right forearm PIV insertion. Patient tolerated the procedure well. Specimen provided to primary RN. * Casandra Bailey RN - 11/29/2022 5:22 AM CDT 0515: RN entered room to get VS and assess. Pt appeared stressed and RN noticed peg site was uncovered and pulled out a little bit and the securement was no longer in place. RN reinforced site and notified Dr. Faust. Dr. Faust came to bedside to assess, Christianne suggested flushing peg site to see if it still worked and to leave the site reinforced and to pass on to oncoming day shift about consulting IR. * Rosita Marcos APRN-CHRIS - 11/28/2022 9:46 AM CDT Interventional Radiology Post-G-tube Follow Up Note Tube/site assessment: Gastrostomy tube securely in place. Dressing with small amount of sanguinous drainage. Mild pain at insertion site. Abdomen soft. Plan: - G-tube is ok for use as directed at this time. - No follow up is needed with IR. General care recs below: 1. Please keep a very strict NPO for the first 12 hours after placement with the tube connected to dependent drainage. After 12 hours the drainage bag can be removed and clear liquid challenges (20-50ml) can begin by mouth and/or through the tube. If tolerating, a clear liquid diet can be ordered and oral medications administered. At 24 hours after placement the tube is OK for normal use. 2. Flush g-tube with 50ml of water after each feeding. 3. Initial dressing can be removed in 48 hours at which time showering may be resumed. 4. T-fasteners (the three buttons below the disc) should fall off on their own in 2-4 weeks. If they fall off outside of that window of time, please page the IR resident pinion and wheel truer at [phone]. 5. If NPO and using the tube for draining purposes only, or not using the tube for stretches of time, flush tube twice daily to maintain patency. 6. We recommend cleaning the skin with soap and water only, allowing it to dry completely, and ensuring that the balloon and disc are both taut to the skin so that the tube cannot freely move in and out of the tract. If breakdown is noted, barrier creams should only be applied after skin has been completely cleaned and completely dried. We do not recommend dressings under the disc as this only ser ves to force the disc further from the abdominal wall, creating a tract for easier leakage to occur. IR will sign off at this time. Re-consult as needed. OSEAS [place] Pgr [phone] Thank you for allowing us to participate in the care of this patient. Please call with questions orconcerns. If calling after hours or over the weekend please page the IR resident pinion and wheel truer @ . * Topher Moy MD - 11/28/2022 7:28 AM CDT Vascular Neurology Progress Note Today's Date: 11/28/2022 Name: Anayeli Mobley Admission Date: 11/22/2022 LOS: 6 days Assessment/Plan: Principal Problem: Acute ischemic stroke (HCC) Active Problems: HTN (hypertension) PAD (peripheral artery disease) (HCC) CAD (coronary artery disease) NSTEMI (non-ST elevated myocardial infarction) (HCC) COPD (chronic obstructive pulmonary disease) (HCC) Troponin level elevated Tissue plasminogen activator (tPA) administered at other facility within 24 hours before current admission PEG (percutaneous endoscopic gastrostomy) status (HCC) Anemia in other chronic diseases classified elsewhere Acute renal insufficiency Anayeli Mobley is a 77 y.o. female with HTN, PAD, CAD s/p CABG, NSTEMI s/p coronary stenting, and COPDwho was recently discharged from the hospital on 11/18 for NSTEMI with coronary stenting. On 11/22 atapproximately 1700 she developed expressive aphasia, right facial droop and right sided weakness and presented to [facility] ED where she was stroke activated. HCT was obtained and negative for acute hemorrhage and demonstrated a left hypodensity in the left kramer radiata. CTA/P was complicated d/t extravisation of contrast and had poor image quality. TNK was given at 1906 and transferred to for possible IR intervention. Patient had digital subtraction angiography with cerebral angiography negative for LVO but showing 50% stenosis of proximal ICA, without large vessel occlusion. MRI revealed multiple small bilateral strokes in the left precentral gyrus-opercular region, anterior left periventricular frontal lobe, right middle frontal gyrus, and right external capsule Current Exam: Awake, alert, expressive aphasia with no verbal output, comprhension intact; able to nod yes/no appropriately and write out some responses with some word repetition in written sentences. Parts of written sentences are non-sensible. No focal weakness or sensory deficit. Patient appeared less lethargic and more communicative than in previous exams. Imaging: - CT Head @ OSH: small hypodensity in the left kramer radiata - CTA H/N @ OSH: Soft plaque at left ICA causing severe stenosis. Poor image quality d/t poor contrast bolus timing and venous contamination - CTP @ OSH: global hypoperfusion, nondiagnostic - IR Angiogram 11/22: Negative for LVO. 50% stenosis of proximal ICA - MRI Head 11/23: Acute to early subacute cortical-subcortical infarcts involving the left precentral gyrus-frontal opercular region, anterior left periventricular frontal lobe, right middle frontal gyrus, and right external capsule. Additional tiny acute to early subacute left cerebellar infarct. Several tiny chronic bilateral basal ganglia-capsular lacunar infarcts Mild cerebral volume loss and mild patchy supratentorial white matter and pontine FLAIR hyperintensities, likely sequela of chronic microvascular ischemia. - TTE 11/24: LV apex is akinetic, LV ejection fraction 50-55%. Mildly dilated left atrium, bubble study was suboptimal but without evidence of intracardiac [id number] shunting - CLARISSE 11/25: LV normal size. Borderline LV systolic function at 50%. Apical akinesis without definitive thrombus. No left atrial appendage thrombus. Aneurysmal atrial septum, which is intact w/out significant right to left shunting. Mitral valve sclerosis w moderate annular calcification. Mod-severe atheromatous changes in the aortic arch and descending thoracic aorta. - Video swallow 11/26: mild-moderate oropharyngeal dysphagia. Recommends full liquid diet w ongoing event operations manager intervention to monitor need for supplemental non-oral nutrition. - CT head wo 11/26: No evidence of acute hemorrhage or mass effect; evolving small LMCA infarct. - obtained due to concern for subjective decline in arousal, increased drowsiness. - CT head wo 11/27: Grossly stable small left lateral perirolandic MCA territory infarct. No evidence of hemorrhagic conversion or obvious new infarct. Mild patchy cerebral white matter hypodensitiesand tiny chronic bilateral basal ganglia-capsular lacunar type infarcts, likely sequela of chronic small vessel ischemic change. - CTA head/neck 11/27: stable without change from prior imaging 11/22 (obtained due to patient being re-stroke activated. See ASRT note 11/27 for full details) Labs LDL- 89 A1c - 5.4 Hgb - 8.6 (11/27) down from 10.2 on admission (11/23) Acute Ischemic Strokes, multifocal Dysphagia NSTEMI s/p stenting (11/18) CAD s/p CABG COPD with chronic hypoxia (4L O2 at baseline) Peg in placement - Last known normal 11/22 @1700 - TNK given 11/22 @1906 - Etiology: Suspect cardioembolic - On LONE LEAD LINEMAN DAPT for cardiac reasons with recent stenting - CLARISSE completed 9/27: No evidence of definitive thrombus. LV apical akinesis, aneurysmal atrial septum. - Video swallow recommendation full liquid diet w event operations manager intervention - Patient not able to tolerate supplemental oral nutrition well as of 11/27. Tried a chocolate protein milkshake but did not like how it tasted and nursing commented that she was unable to completely swallow all of it. PLAN: > Continue DAPT Aspirin 81mg, Plavix 75mg (restarted 11/23 pm), originally stated for cardiac reasons following stenting > PEG placement 11/27 - Meds per PEG 12 hours after placement, and resume TF 24h after placement (1750 on 11/28) - post-op pain management PRN - Appreciate nutrition recs once PEG in > Cont LONE LEAD LINEMAN inhalers for COPD > Nicotine replacment patch > PT/OT/Rehab medicine recommending inpatient setting on discharge > MCOT on discharge Acute renal insufficiency Elevated cr( 1.24 on 11/27, 0.96 on 11/26)and bun. Increased fluid. HTN > SBP goal normotensive - Cont LONE LEAD LINEMAN Lisinopril 40mg daily - Resume LONE LEAD LINEMAN Hydralazine 50mg TID - Holding LONE LEAD LINEMAN Clonidine patch - Holding LONE LEAD LINEMAN Spironolactone 50mg daily > Cont LONE LEAD LINEMAN Coreg 25mg daily Anemia - Hb slowly declining since admission (10.2), now at 8.6. - Normocytic anemia (MCV 92.1) PLAN: > no evidence of hematoma in R radial site access > CTM with daily CBCs > Iron panel- pending Mild hyperlipidemia - LDL 89; goal <70. Medication therapy increased to Atorvastatin 80mg/day FEN: IVF prn, replace lytes prn, Diet NPO PPX: Lovenox Code status: DNAR-Full Intervention Disposition: Continued admission to Stroke. PT/OT/Rehab medicine recommending inpatient setting ondischarge. Anticipate dc to [facility] pending medical stability, likely on Wednesday as facility does not accept new patients on the weekend. Patient seen and discussed with Chinmay. Garrison Tee DO Neurology, PGY-3 Available on Voalte ATTESTATION I personally performed the fofana portions of the E/M visit on : 11/28/22, I discussed case with resident and concur with resident documentation of history, physical exam, assessment, and treatment planunless otherwise noted. Staff name: Topher Moy MD Date: 11/28/2022 Subjective: Anayeli Mobley is a 77 y.o. female. Overnight patient with pain due to PEG placement. Meds resumed viaPEG around 0530 this morning. Patient has communication board to help communicate this morning. Shesays she has some pain from her PEG tube, and also indicates that she is thirsty. Objective: Vitals: 11/27/22 1830 11/27/227 11/28/2212411/28/22352 BP: (!) 154/64 (!) 181/58 BP Source: Arm, Left Upper Arm, Right Upper Pulse: 68 77 73 80 Temp: 36.3 °C (97.3 °F) 36.7 °C (98 °F) SpO2: 97% 98% 97% 97% O2 Percent: O2 Device: Nasal cannula Nasal cannula Nasal cannula Nasal cannula O2 Liter Flow: 2 Lpm 2 Lpm 2 Lpm 2 Lpm Weight: Height: Vital Signs: Last Filed Vital Signs: 24 Hour Range BP: 181/58 (11/28 352) Temp: 36.7 °C (98 °F) (11/28 352) Pulse: 80 (11/28 352) Respirations: 20 PER MINUTE (11/28 352) SpO2: 97 % (11/28 352) O2 Device: Nasal cannula (11/28 352) O2 Liter Flow: 2 Lpm (11/28 352) SpO2 Pulse: 66 (11/27 1829) BP: (114-181)/(52-68) Temp: [36.3 °C (97.3 °F)-36.9 °C (98.4 °F)] Pulse: [66-80] Respirations: [11 PER MINUTE-20 PER MINUTE] SpO2: [93 %-99 %] O2 Device: Nasal cannula O2 Liter Flow: 2 Lpm Intensity Pain Scale (Self Report): (not recorded) Intake/Output Summary: (Last 24 hours) Intake/Output Summary (Last 24 hours) at 11/28/2022 0728 Last data filed at 11/28/2022 0715 Gross per 24 hour Intake 470 ml Output 700 ml Net -230 ml Stool Occurrence: 0 Medications: Scheduled Meds:acetaminophen (OFIRMEV) 1,000 mg injection 100 mL, 1,000 mg, Intravenous, ONCE aspirin chewable tablet 81 mg, 81 mg, Per NG tube, QDAY atorvastatin (LIPITOR) tablet 80 mg, 80 mg, Per NG tube, QHS carvediloL (COREG) tablet 25 mg, 25 mg, Per NG tube, BID w/meals CHOLEcalciferoL (vitamin D3) tablet 5,000 Units, 5,000 Units, Oral, QDAY clopiDOGreL (PLAVIX) tablet 75 mg, 75 mg, Per NG tube, QDAY senna (SENOKOT) oral syrup 8.8 mg, 8.8 mg, Oral, BID And docusate sodium (COLACE) oral solution 100 mg, 100 mg, Oral, BID enoxaparin (LOVENOX) syringe 40 mg, 40 mg, Subcutaneous, QDAY(21) hydrALAZINE (APRESOLINE) tablet 50 mg, 50 mg, Per G Tube, Q8H* lidocaine (LIDODERM) 5 % topical patch 1 patch, 1 patch, Topical, QDAY lisinopriL (ZESTRIL) tablet 40 mg, 40 mg, Per NG tube, QDAY milk of magnesium oral suspension 30 mL, 30 mL, Per NG tube, QDAY nicotine (NICODERM CQ) 21 mg/day patch 1 patch, 1 patch, Transdermal, QDAY pregabalin (LYRICA) capsule 25 mg, 25 mg, Feeding Tube, TID SODIUM CHLORIDE 0.9 % IV SOLP (Cabinet Override), , , NOW Continuous Infusions: Diet Enteral Feeding Standard Infusion 20 mL/hr at 11/26/22 0430 PRN and Respiratory Meds:acetaminophen Q4H PRN, albuterol-ipratropium Q4H PRN, ondansetron (ZOFRAN)IV Q6H PRN, pancrelipase 20,880 Units/sodium bicarbonate 650 mg (KU CLOG DESTROYER) PRN (Mobility Engineer from Rx) General physical exam: Physical Exam: General: Alert, cooperative, no distress, appears stated age Head: Normocephalic, corpak tube in place. Replaced last night (11/25). Eyes: Conjunctivae/corneas clear. Abd: PEG tube in place with some blood on the dressing Extremities: Extremities normal, atraumatic, no cyanosis or edema Skin: Skin color, texture, turgor normal. Neuro exam: Mental status: alert, oriented to person/place/time Speech: Expressive aphasia, no verbal speech output. Comprehension mostly intact and able to followcommands. Cranial Nerves: Normal Abnormal II Pupils reactive, visual felton normal III, IV, no nystagmus V Sensation nml V1-V3 VII Mild right facial droop VIII Decreased hearing bilaterally, reports this is her baseline IX, X +strong cough XI Equal shoulder shrug XII Tongue midline Muscle/motor: Normal tone/bulk. Weakness in elbow flexion/extension seen on RUE compared to LUE. Otherwise symmetric minimal weakness 4+/5 throughout in bilateral upper and lower extremities. Sensation: intact to light touch in bilateral upper and lower extremities Coordination: Heel to cruz and finger to nose without ataxia bilaterally. Gait and Sation: deferred Reflexes: symmetric 2+ throughout in bilateral upper and lower extremities Laboratory Review: No results found for: "PHART", "PCO2A", "PO2ART", "HCO3A", "BASEEXA", "BASEDEFA", "[id number]" Lab Results Component Value Date HGB 8.6 (L) 11/27/2022 HCT 26.7 (L) 11/27/2022 PLTCT 232 11/27/2022 WBC 8.2 11/27/2022 NEUT 69 11/27/2022 ANC 5.67 11/27/2022 Lab Results Component Value Date NA 137 11/27/2022 K 4.7 11/27/2022 CL 101 11/27/2022 CO2 30 11/27/2022 GAP 6 11/27/2022 BUN 33 (H) 11/27/2022 CR 1.24 (H) 11/27/2022 GLU 103 (H) 11/27/2022 CA 9.8 11/27/2022 MG 2.4 11/27/2022 PO4 3.1 11/27/2022 OBSCA 1.35 (H) 11/23/2022 TOTPROT 6.3 11/23/2022 AST 19 11/23/2022 ALT 12 11/23/2022 ALKPHOS 56 11/23/2022 No results found for: "TNI", "CKMB", "MYOGLB" No results found for: "PTT", "INR", "FIB", "DIMER", "FDP" No results found for: "TSH", "XAQZW7Q", "CORTRAN" Lab Results Component Value Date CHOL 145 11/23/2022 TRIG 111 11/23/2022 HDL 38 (L) 11/23/2022 LDL 89 11/23/2022 VLDL 22 11/23/2022 No results found for: "VANRAN", "VANPK", "VANTR" No results found for: "CYCLOSPOR", "TACROLIMUS", "FREEPHENY" Point of Care Testing: (Last 24 hours): Glucose: (!) 103 POC Glucose (Download): (!) 103 Radiology and Other Diagnostics Review: CTA HEAD WO/W CONT Final Result CTA head: 1. Severe multifocal intracranial arterial stenosis (most pronounced at the bilateral intracranialinternal carotid arteries, left M1 segment, a right [...] ICA origin and 50% stenosis of the leftICA origin by NASCET criteria. 2. Persistent occlusion [...] Kadi Alston MD on 11/27/2022 1:38 PM. CTA NECK WO/W CONT Final Result CTA head: 1. Severe multifocal intracranial arterial stenosis (most pronounced at the bilateral intracranialinternal carotid arteries, left M1 segment, a right [...] ICA origin and 50% stenosis of the leftICA origin by NASCET criteria. 2. Persistent occlusion [...] Kadi Alston MD on 11/27/2022 1:[address] HEAD WO CONTRAST Final Result 1. Grossly stable small left lateral perirolandic [...] interpretations and opinions expressed in this report CT HEAD WO CONTRAST Final Result 1. Evolving small left MCA territory infarct. No evidence of hemorrhagic conversion or significantintracranial mass effect. Additional tiny recent infarcts better demonstrated on comparison MRI. 2. Mild patchy cerebral white matter hypodensities and tiny chronic bilateral basal ganglia lacunar type infarcts, likely sequela of chronic small vessel ischemic change. Finalized by Anabel Subramanian D.O. on 11/26/2022 1:26 PM. Dictated by Anabel Subramanian D.O. on 11/26/2022 1:10 PM. SWALLOW MOTION SERIES Final Result FINDINGS/IMPRESSION: 1. Laryngeal penetration with thin and [...] Christian Bundy M.D. on 11/26/2022 9:54 AM. FEEDING TUBE PLCMNT (ABD/CHEST LMTD) Final Result Findings/impression: The lower thorax and abdomen are included in the [id number]. There has been interval advancementof the nasoenteric catheter with its tip now overlying the region of the gastric outlet. Finalized by Harpreet Yoon D.O. on 11/26/2022 9:19 AM. Dictated by Harpreet Yoon D.O. on 11/26/2022 9:14 AM. TRANSESOPHAGEAL ECHO Final Result FEEDING TUBE PLCMNT (ABD/CHEST LMTD) Final Result Enteric tube as above. Consider advancement for postpyloric positioning. By my electronic signature, I attest that I have personally reviewed the images for this examination and formulated the interpretations and opinions expressed in this report Finalized by Harpreet Yoon D.O. on 11/24/2022 9:04 AM. Dictated by Christian Bundy M.D. on 11/24/2022 8:22 AM. FEEDING TUBE PLCMNT (ABD/CHEST LMTD) Final Result Findings/impression: Single AP projection of the lower chest and upper abdomen was obtained. Portions of the left lower chest and abdomen were not included within the [id number]. Indwelling enteric tube with the distal tip terminating over the stomach. Prior median sternotomy and CABG. No gas distended loops of bowel within the visualized abdomen. Finalized by Kat Navarro M.D. on 11/23/2022 11:42 AM. Dictated by Kat Navarro M.D.on 11/23/2022 11:41 AM. 2D + DOPPLER ECHO Final Result MRI HEAD WO CONTRAST Final Result 1. Acute to early subacute cortical-subcortical infarcts [...] AM. Dictated by Luis Gupta MD on 34:38 AM. IR CEREBRAL ARTERIOGRAM DIAGNOSTIC WITH INTERVENTION Final Result 1. Mild stenosis of the proximal ICA [...] formulated the interpretations and opinions expressed in thisreport. @TT Finalized by Mikal Hicks M.D. on 11/23/2022 9:14 AM. Dictated by Mikal Hicks M.D. on 11/23/2022 8:[address] HEAD EXTERNAL IMAGING Final Result CTA HEAD EXTERNAL IMAGING Final Result CTA HEAD EXTERNAL IMAGING Final Result CTA HEAD EXTERNAL IMAGING Final Result IR GASTROSTOMY TUBE PLACEMENT (Results Pending) * Silvana Faust DO - 11/28/2022 5:23 AM CDT Notified by RN that patient's SBP is in the 180s and that she has pain at the site of PEG tube. Ordered IV tylenol and lidocaine patch as well as IV hydralazine since PEG tube cannot be used until 0550. Unfortunately, patient's IV infiltrated when trying to give the IV tylenol and despite multiple attempts at getting IV access it is still unsuccessful. Therefore, we will give hydralazine and pain medication through the PEG since her BP should not be that high. Informed RN to remove the drainage bag and flush PEG with 50ml of water now (which is 30 min prior to the 0550 recommendation). If patient tolerates the water can give hydralazine and pain medication. Silvana Faust DO PGY4, Neurology Resident Available on Voalte * Yue Salinas RN - 11/27/2022 6:[address] Szymanski paged for anesthesia sign out. Patient on baseline oxygen requirement of 2L. Patient shakes her head when asked if she is experiencing pain or PONV. Patient's , Sergio, updated on the above and that patient is returning to her inpatient room after her IR recovery is complete. * Yue Salinas RN - 11/27/2022 6:15 PM CDT Patient did not want to put dentures in immediately post procedure. Placed in denture cup and will transport them back to her inpatient room once her recovery is complete. * Yue Salinas RN - 11/27/2022 6:00 PM CDT Patient to remain on strict bedrest until 1950. Post op orders released and reviewed on Kardex. Patient to remain strict NPO for 12 hours post g tube placement. The drainage bag can be disconnected @0550 on 11/28 and flushed with 50 mLs water. If tolerated, meds can begin to be administered at thattime. 24 hours post placement @ 1750 on 11/28, tube feeds can be initiated. * Ayesha Gandara RN - 11/27/2022 5:29 PM CDT Anesthesia staff present to monitor patient airway, vital signs, and medications. See anesthesia docflow. This RN will assist as needed. * Jasmyne Mendenhall OT - 11/27/2022 1:44 PM CDT OCCUPATIONAL THERAPY NOTE Name: Anayeli Mobley : 1945 Age: 77 y.o. Admission Date: 11/22/2022 LOS: 5 days Date of Service: 11/27/2022 Pt stroke activated this pm, CT results pending. Plans for PEG later today. OT and PT will continueto follow. Therapist: Jasmyne Mendenhall OT Date: 11/27/2022 * Conrad Burns RN - 11/27/2022 1:23 PM CDT Patient was in the bathroom and had increase RUE and RLE numbness/weakness, facial droop slightly worse. Charge nurse, Tiffany Diaz, called in for second assessment. Code stroke activated at 1307. Stroke team in the room at 1310. BP was 166/78, strength slowly starting to return with MD assessment. Patient taken down for head CT for worsening stroke rule out. PEG tube delayed to later this afternoon. * Altagracia King, LIDIA - 11/27/2022 10:41 AM CDT CLINICAL NUTRITION Clinical Nutrition Follow-Up Assessment Name: Anayeli Mobley : 1945 Age: 77 y.o. Admission Date: 11/22/2022 LOS: 5 days Date of Service: 11/27/2022 Recommendation: · Once PEG tube placed and ready to use, REC bolus feed as follows: · Bolus (1) carton (250 mL) of Isosource 1.5 QID · Provides 1500 kcal, 68 g/pro and 764 mL of free water per day · Bolus 1/2 carton (125 mL) for first 1-2 feedings. If tolerated, increase to full cartons. · Flush 60 mL before and after each feeding and flush an additional 150 mL BID for hydration. · EN and all water flushes provide 1544 mL/day (103% needs, 1 mL/kcal) · Fluids are ultimately deferred to primary team · Miscellaneous: · Would change laxatives from BID to prn (pt with diarrhea) · Re-check vit D level. If WNL, consider reducing pt's current dose which is 5000 international units per day. Would REC 3364-2970 international units. · Diet progression per speech · Note pt previously on full liquids. Encourage chocolate milk, strawberry [place] Breakfast, yogurt, pudding, ice cream The nutrition-related order modifications are made in communication with the primary service, who remains responsible for the orders and overall care of the patient. Comments: H/P: Anayeli Mobley is a 77 y.o. female with a PMH of HTN, PAD, CAD s/p CABG, NSTEMI s/p coronary stenting, and COPD who was recently discharged from the hospital on 11/18 for NSTEMI with coronary stenting. On 11/22 she developed expressive aphasia, right facial droop and right sided weakness and presented to OSH ED where she was stroke activated. Pt transferred to for possible IR intervention. Pt was admitted to NEICU for further management and evaluation. MRI revealed multiple small bilateral strokes in the left precentral gyrus- opercular region, anterior left periventricular frontal lobe, right middle frontal gyrus, and right external capsule. Transferred from ICU to floor 11/25. RD following for enteral nutrition: · Per SPACE OFFICER eval, pt with dysphagia. Corpak placed 11/23 with tip in the stomach. · EN started 11/23, minimal infused to date. · Per SPACE OFFICER eval 11/25, pt upgraded to full liquids and is with fair/good prognosis, but jail ENREC while pt goes to rehab. · Pt to have PEG tube placed today 11/27. Met with pt in room. She is with aphagia but able to answer questions by shaking her head. Pt denies issues with tube feed, some diarrhea (2 episodes). Note pt on scheduled laxatives. Pt reports she drank half of a chocolate Boost but doesn’t care for. Likes chocolate milk, strawberry [place]. Dislikes cream of wheat, likes pudding, ice cream and yogurt. RD REC EN to meet 100% needs. Would REC try bolus feeds once PEG placed and ready to use. Also REC make scheduled laxatives prn. Would also re-check vitamin D and reduce dose (2000 units per day) if wnl. RD ordered new weight. Will continue to monitor. Nutrition Assessment of Patient: Admit Weight: 60.9 kg (Bedscale); Weight Change Since Admit: -.2kg, RD ordered new weight BMI (Calculated): 26.22; BMI Categories Adult: Over Weight: 25-29.9 Pertinent Allergies/Intolerances: NKFA Pertinent Labs: BUN 33, Crea 1.24, GFR 45; Pertinent Meds: Vit D 5000 units per day, MOM, colace/senna BID, Zofran, K+; Oral Diet Order: NPO at midnight (For PEG placement); Current EN Order: Isosource 1.5 at 45ml/hr Current Oral Intake: NPO (For procedure) Intake Comment: 11/23-124 mL 11/24-428 mL 11/25-nothing charted, pt transferred from ICU to floor 11/26-nothing charted. Per nursing was started over at 20 mL/hr, then pt on and off unit for scans. She did get up to goal rate of 45 mL/hr but not for very long before NPO for PEG tube today 11/27 Intake (calories) Daily Average : 414 kilocalories (29%) Intake (protein) Daily Average : 19 grams (27%) Estimated Calorie Needs: 2256-0491 (25-30 kcal/kg DBW) Estimated Protein Needs: 69-87 (1.2-1.5 g/kg DBW) Malnutrition Assessment: Does not meet criteria Nutrition Focused Physical Assessment: Loss of Subcutaneous Fat: No; Muscle Wasting: No; Edema: Yes; Severity: Mild; Location: Generalized, Left, Lower extremities Pressure Injury: None Comment: + BM 11/27-diarrhea Nutrition Diagnosis: Inadequate oral intake Etiology: dysphagia Signs & Symptoms: NPO with need for primary source of nutrition via EN Intervention / Plan: EN RECS, monitor EN for tolerance Monitor wt trends, GI issues, meds and labs as needed Goals: Initiate nutrition Time Frame: Within 24 hours Status: Met;New goal established EN tolerated and meeting >85% of nutritional needs Time Frame: Within 72 hours Status: Not met;New timeframe established EN tolerated and meeting >85% of nutritional needs Time Frame: Throughout stay Clinical Dietitian: Altagracia King RD, LD Available on Voalte * Radha Mathis - 11/27/2022 10:05 AM CDT SPEECH-LANGUAGE PATHOLOGY NO TREATMENT NOTE Pt currently NPO for PEG placement this date. Will hold and plan for follow-up when medically appropriate. Therapist: Radha Mathis M.A., CCC-SPACE OFFICER Voalte: [id number] Date: 11/27/2022 * Martina Kim, PT - 11/26/2022 3:24 PM CDT PHYSICAL THERAPY PROGRESS NOTE Name: Anayeli Mobley : 1945 Age: 77 y.o. Admission Date: 11/22/2022 LOS: 4 days Date of Service: 11/26/2022 Mobility Patient Turn/Position: Self Progressive Mobility Level: Walk in hallway Distance Walked (feet): 75 ft Level of Assistance: Assist X1 Assistive Device: Hand Held Activity Limited By: Fatigue;Weakness Subjective Significant hospital events: Hx of HTN, PAD, CAD s/p CABG, NSTEMI s/p coronary stenting, and COPD who was recently discharged from the hospital on 11/18 for NSTEMI with coronary stenting. On 11/22 at approximately 1700 she developed expressive aphasia, right facial droop and right sided weakness and presented to [facility] ED where she was stroke activated. HCT was obtained and negative for acute hemorrhage and demonstrated a left hypodensity in the left kramer radiata. CTA/P was complicated d/t extravisation of contrast and had poor image quality. TNK was given at 1906 and transferred to for possible IR intervention. Mental / Cognitive Status: Alert;Cooperative;Follows Commands Pain: Patient has no complaint of pain;Patient demonstrates no signs of pain Pain Interventions: Patient agrees to participate in therapy;Patient assisted into position of comfort Comments: Appears consistent with yes/no head shaking as well as writing. Unable to verbalize any words during session Comments: 3 L 02 via NC, 4 L at baseline Ambulation Assist: Independent Mobility in Community without Device Patient Owned Equipment: None Home Situation: Lives with Family Type of Home: Mobile Home Entry Stairs: 3-5 Stairs;Rail on 1 Side;Ramp In-Home Stairs: No Stairs Comments: Patient's reports that she was independent with all mobility and ADL prior to admission He works out of town and is often gone for a month at a time. Strength Strength Comments: See comments on dynamometer testing Bed Mobility/Transfer Bed Mobility: Supine to Sit: Standby Assist;Head of Bed Elevated Bed Mobility: Sit to Supine: Standby Assist;HOB Elevated Transfer Type: Sit to/from Stand (x4 reps) Transfer: Assistance Level: To/From;Bed;Minimal Assist Transfer: Assistive Device: Hand Hold Assist Transfers: Type Of Assistance: For Balance;For Strength Deficit;For Safety Considerations End Of Activity Status: In Bed;Nursing Notified;Instructed Patient to Request Assist with Mobility;Instructed Patient to Use Call Light (bed alarm activated) Comments: Patient indicates that she would like to return to bed to rest. Gait Gait Distance: 75 feet Gait: Assistance Level: Minimal Assist Gait: Assistive Device: Hand Hold Assist Gait: Descriptors: Pace: Slow;Decreased step length;No balance loss Activity Limited By: Complaint of Fatigue;Weakness Assessment/Progress Impaired Mobility Due To: Decreased Strength;Impaired Balance;Decreased Activity Tolerance;Medical Status Limitation Assessment/Progress: Should Improve w/ Continued PT;Progressing Toward Goals Comments: Patient will benefit from rehab placement at discharge. Continues to be limited by right sided weakness, inattention, and speech impairments. AM-PAC 6 Clicks Basic Mobility Inpatient Turning from your back to your side while in a flat bed without using bed rails: A Little Moving from lying on your back to sitting on the side of a flat bed without using bedrails : A Little Moving to and from a bed to a chair (including a wheelchair): A Little Standing up from a chair using your arms (e.g. wheelchair, or bedside chair): A Little To walk in hospital room: A Little Climbing 3-5 steps with a railing: A Little Basic Mobility Inpatient Raw Score: 18 Standardized (T-scale) Score: 41.05 Goals Goal Formulation: With Patient/Family Time For Goal Achievement: 5 days, To, 7 days Patient Will Go Supine To/From Sit: Independently, Ongoing Patient Will Transfer Sit to Stand: Independently, Ongoing Patient Will Ambulate: Greater than 200 Feet, w/ No Device, Independently, Ongoing Patient Will Go Up / Down Stairs: 3-5 Stairs, w/ Stand By Assist, Ongoing Plan Treatment Interventions: Mobility Training;Strengthening;Balance Activities;Endurance Training Plan Frequency: 5 Days per Week PT Plan for Next Visit: Balance test next visit, increase ambulation distance in hallway. PT Discharge Recommendations Recommendation: Inpatient setting;Recommend rehab medicine consult Therapist: Mart[place] DPT [id number] Date: 11/26/2022 * Inessa Deleon, OT - 11/26/2022 2:04 PM CDT OCCUPATIONAL THERAPY PROGRESS NOTE Name: Anayeli Mobley : 1945 Age: 77 y.o. Admission Date: 11/22/2022 LOS: 4 days Date of Service: 11/26/2022 Mobility Patient Turn/Position: Self Progressive Mobility Level: Walk in room Distance Walked (feet): 50 ft Level of Assistance: Assist X1 Assistive Device: None Activity Limited By: Fatigue Subjective Pertinent Dx per Physician: 77 y.o. female with a PMH of HTN, PAD, CAD s/p CABG, NSTEMI s/p coronary stenting, and COPD who was recently discharged from the hospital on 11/18 for NSTEMI with coronary stenting. On 11/22 at approximately 1700 she developed expressive aphasia, right facial droop and right sided weakness and presented to OSH ED where she was stroke activated. HCT was obtained and negative for acute hemorrhage and demonstrated a left hypodensity in the left kramer radiata. CTA/P was complicated d/t extravisation of contrast and had poor image quality. TNK was given at 1906 and transferred to for possible IR intervention. Precautions: Standard;Diet Modifications Pain / Complaints: Patient agrees to participate in therapy Objective Psychosocial Status: Willing and Cooperative to Participate Home Living Type of Home: Mobile Home Home Layout: One Level;Stairs to Enter w/ Rails Bathroom Shower / Tub: Walk-in Shower Bathroom Toilet: Standard Bathroom Equipment: Grab Bars in Shower;Hand-Held Shower Comment: 3 steps to enter with rail Prior Function Level Of Page: Independent with ADLs and functional transfers;Independent with homemaking w/ ambulation Lives With: Spouse Receives Help From: None Needed Other Function Comments: Patient independent with ADLs and mobility. No falls. Spouse reports he works for weeks to months at at time. Vision Corrective Lenses: Wears glasses all of the time ADL's Where Assessed: Standing at Sink;In Bathroom Eating Assist: Minimal Assist Eating Deficits: Setup;Beverage Management (Assist to hold NG tube out of the way while she brings cup to mouth.) Grooming Assist: Minimal Assist (CGA) Grooming Deficits: Wash/Dry Hands LE Dressing Assist: Moderate Assist LE Dressing Deficits: Thread RLE Into Underwear;Thread LLE Into Underwear Toileting Assist: Minimal Assist Toileting Deficits: Perineal Hygiene Comment: Pt requires assist to hold brief in place while stepping into brief. She is then able to pull brief up on her own with CGA for balance. Requires Paulino for completeness of vasu care due to loose stools. ADL Mobility Bed Mobility: Supine to Sit: Standby assist Bed Mobility: Sit to Supine: Standby assist Transfer Type: Sit to stand Transfer: Assistance Level: From;Bed;Toilet;Minimal assist Transfer: Assistive Device: None Transfer: Type of Assistance: For safety considerations End of Activity Status: In bed;Instructed patient to request assist with mobility;Instructed patient to use call light Transfer Comments: requires steadying assist Sitting Balance: Standby assist Standing Balance: Static standing balance;Dynamic standing balance;Minimal assist Gait Distance: 50 feet Gait: Assistance Level: Minimal assist Gait: Assistive Device: None Gait Comments: Slightly unsteady, reaching for furniture items for support periodically Activity Tolerance Endurance: 4/5 Tolerates 30+ Minutes Exercise W/O Fatigue Cognition Cognition Comment: Able to nod "yes" and "no" to questions. Otherwise is able to write. UE Strength / Tone Strength Comments: See comments on dynamometer testing Dynamometer Real Estate Branch Manager Assessment: 3 Trial Average L Hand (lbs) R Hand (lbs) Trial 1 20 10 Trial 2 19 8 Trial 3 15 5 Average 18 7.7 Real Estate Branch Manager Assessment norms according to age grouping: Female: 75+ R AV.6; SD: 11 -- L AV.6; SD: 8.9 Real Estate Branch Manager strength testing is the one of the most sensitive assessments of the upper extremity and can be a good prognostic factor for recovery in acute stroke. Assessment Assessment: Decreased ADL Status;Decreased Endurance;Decreased Self-Care Trans;Decreased High-LevelADLs Prognosis: Good Comments: Pt is making progress. Would benefit from continued OT services to improve safety and independence with ADL and functional mobility. AM-PAC 6 Clicks Daily Activity Inpatient Putting on and taking off regular lower body clothes: A Lot Bathing (Including washing, rinsing, drying): A Lot Toileting, which includes using toilet, bedpan, or urinal: A Little Putting on and taking off regular upper body clothing: A Little Taking care of personal grooming such as brushing teeth: A Little Eating meals: Total Daily Activity Raw Score: 14 Standardized (T-scale) Score: 33.39 Plan OT Frequency: 5x/week OT Plan for Next Visit: LE dressing, further mobility ADL Goals Patient Will Perform All ADL's: Independently Functional Transfer Goals Pt Will Perform All Functional Transfers: Independent OT Discharge Recommendations Recommendation: Inpatient setting Patient Currently Requires Physical Assist With: All mobility;All personal care ADLs;All home functioning ADLs Therapist: NAYELY Harvey/Piper Date: 11/26/2022 * Sameer Godoy RT - 11/26/2022 12:57 PM CDT RT Adult Assessment Note NAME:Anayeli Mobley :1945 AGE: 77 y.o. ADMISSION DATE: 11/22/2022 DAYS ADMITTED: LOS: 4 days RT Treatment Plan: Protocol Plan: Medications Albuterol: Nebulizer PRN;MDI PRN Ipratropium: Nebulizer PRN Protocol Plan: Procedures PEP Therapy: Discontinued Oxygen/Humidity: O2 to keep SpO2 > 92%, if on room air for > 24 hours and no other RT modalities are required, then D/C protocol SpO2: BID & PRN Additional Comments: Impressions of the patient: Pt resting in bed on home regimen 3-4L O2 with no apparent respiratory distress at this time. Vital Signs: Pulse: 68 RR: 18 PER MINUTE SpO2: 96 % O2 Device: Nasal cannula Liter Flow: 3.5 Lpm O2%: Breath Sounds: Clear (Implies normal) Respiratory Effort: Unlabored * Farooq Pina RN - 11/25/2022 10:50 PM CDT Small Bore Feeding Tube Placement Procedure was discussed with patient and family Time Placed: 22:38 Size of Tube: 10 Liberian Length of Tube: 109 cm Physician's order received for feeding tube placement. Placed small bore feeding tube in patient's right nare with [employer] tracking device. [address] tube; air bolus utilized in attemptto advance tube past pylorus. Tube advanced to 74 centimeter madalyn on tube, and secured with nasal bridle to the patient's left and right nares. No one at bedside to assist and patient was cooperativewith instructions during placement. Nurse to confirm correct tube placement via KUB with primary team physician. Procedure completed without complications. * Casandra Mays OT - 11/25/2022 1:31 PM CDT OCCUPATIONAL THERAPY NOTE Name: Anayeli Mobley : 1945 Age: 77 y.o. Admission Date: 11/22/2022 LOS: 3 days Date of Service: 11/25/2022 Patient was unavailable for occupational therapy, off unit for CLARISSE. Occupational therapy will continue to follow and provide intervention as indicated. Therapist: NAYELY Harding/Piper [id number] Date: 11/25/2022 * Radha Mathis - 11/25/2022 10:23 AM CDT SPEECH-LANGUAGE PATHOLOGY NO TREATMENT NOTE Pt planned for videoswallow today however currently NPO for CLARISSE at 1330. Will complete videoswallowpost CLARISSE as able to schedule/medically appropriate Therapist: Radha Mathis M.A. [facility] Voalte: [id number] Date: 11/25/2022 * Adri Bazzi, PT - 11/25/2022 9:30 AM CDT PHYSICAL THERAPY PROGRESS NOTE Name: Anayeli Mobley : 1945 Age: 77 y.o. Admission Date: 11/22/2022 LOS: 3 days Date of Service: 11/25/2022 Mobility Progressive Mobility Level: Walk in hallway Distance Walked (feet): 100 ft Level of Assistance: Assist X1 Assistive Device: Hand Held Activity Limited By: Fatigue;Weakness Subjective Significant hospital events: 77 y.o. female with a PMH of HTN, PAD, CAD s/p CABG, NSTEMI s/p coronary stenting, and COPD who was recently discharged from the hospital on 11/18 for NSTEMI with coronarystenting. On 11/22 at approximately 1700 she developed expressive aphasia, right facial droop and right sided weakness and presented to [facility] ED where she was stroke activated. HCT was obtained and negative for acute hemorrhage and demonstrated a left hypodensity in the left kramer radiata. CTA/P was complicated d/t extravisation of contrast and had poor image quality. TNK was given at 1906 and transferred to for possible IR intervention. Mental / Cognitive Status: Alert;Cooperative;Follows Commands (attempted to verbalized name) Persons Present: Spouse;Student Ambulation Assist: Independent Mobility in Community without Device Patient Owned Equipment: None Home Situation: Lives with Family Type of Home: Mobile Home Entry Stairs: 3-5 Stairs;Rail on 1 Side;Ramp In-Home Stairs: No Stairs Comments: Patient's reports that she was independent with all mobility and ADL prior to admission He works out of town and is often gone for a month at a time. Posture/Neurological Head Control: Independent Posture: Rounded shoulders Bed Mobility/Transfer Other Transfer: Assistance Level: From;Bed;To;Bed Side Chair;Minimal Assist Other Transfer: Assistive Device: Hand Hold Assist Other Transfer: Type Of Assistance: For Balance;For Strength Deficit;For Safety Considerations End Of Activity Status: Up in Chair;Nursing Notified;Instructed Patient to Request Assist with Mobility;Instructed Patient to Use Call Light Balance Sitting Balance: Static Sitting Balance;2 UE Support;Standby Assist Standing Balance: Static Standing Balance;1 UE support;Minimal Assist Gait Gait Distance: 100 feet Gait: Assistance Level: Minimal Assist Gait: Assistive Device: Hand Hold Assist Gait: Descriptors: Pace: Slow;Decreased step length;No balance loss Comments: patient ambulated 100 feet down the hallway with minimal assit and hand hold, second person with lines and chair. wheeled back to room Education Persons Educated: Patient;Family Patient Barriers To Learning: Impaired Communication Interventions: Repetition of Instructions;Family Education Teaching Methods: Verbal Instruction Topics: Plan/Goals of PT Interventions;Mobility Progression;Safety Awareness;Up with Assist Only;Importance of Increasing Activity;Ambulate With Nursing;Recommend Continued Therapy Assessment/Progress Impaired Mobility Due To: Decreased Strength;Impaired Balance;Decreased Activity Tolerance;Medical Status Limitation Assessment/Progress: Should Improve w/ Continued PT AM-PAC 6 Clicks Basic Mobility Inpatient Turning from your back to your side while in a flat bed without using bed rails: A Little Moving from lying on your back to sitting on the side of a flat bed without using bedrails : A Little Moving to and from a bed to a chair (including a wheelchair): A Little Standing up from a chair using your arms (e.g. wheelchair, or bedside chair): A Little To walk in hospital room: A Little Climbing 3-5 steps with a railing: A Little Basic Mobility Inpatient Raw Score: 18 Standardized (T-scale) Score: 41.05 Goals Goal Formulation: With Patient/Family Time For Goal Achievement: 5 days, To, 7 days Patient Will Go Supine To/From Sit: Independently Patient Will Transfer Sit to Stand: Independently Patient Will Ambulate: Greater than 200 Feet, w/ No Device, Independently Patient Will Go Up / Down Stairs: 3-5 Stairs, w/ Stand By Assist Plan Treatment Interventions: Mobility Training;Strengthening;Balance Activities;Endurance Training Plan Frequency: 5 Days per Week PT Plan for Next Visit: Balance test next visit. Increase ambulation distance into peraza PT Discharge Recommendations Recommendation: Inpatient setting;Recommend rehab medicine consult Therapist: Adri Bazzi, PT Date: 11/25/2022 * Garrison Tee, DO - 11/25/2022 7:23 AM CDT Vascular Neurology Progress Note Today's Date: 11/25/2022 Name: Anayeli Mobley Admission Date: 11/22/2022 LOS: 3 days Assessment/Plan: Principal Problem: Acute ischemic stroke (HCC) Active Problems: HTN (hypertension) PAD (peripheral artery disease) (HCC) CAD (coronary artery disease) NSTEMI (non-ST elevated myocardial infarction) (HCC) COPD (chronic obstructive pulmonary disease) (HCC) Troponin level elevated Tissue plasminogen activator (tPA) administered at other facility within 24 hours before current admission Leukocytosis Anayeli Mobley is a 77 y.o. female with HTN, PAD, CAD s/p CABG, NSTEMI s/p coronary stenting, and COPDwho was recently discharged from the hospital on 11/18 for NSTEMI with coronary stenting. On 11/22 atapproximately 1700 she developed expressive aphasia, right facial droop and right sided weakness and presented to [facility] ED where she was stroke activated. HCT was obtained and negative for acute hemorrhage and demonstrated a left hypodensity in the left kramer radiata. CTA/P was complicated d/t extravisation of contrast and had poor image quality. TNK was given at 190 and transferred to for possible IR intervention. Patient had digital subtraction angiography with cerebral angiography negative for LVO but showing 50% stenosis of proximal ICA, without large vessel occlusion. MRI revealed multiple small bilateral strokes in the left precentral gyrus-opercular region, anterior left periventricular frontal lobe, right middle frontal gyrus, and right external capsule Current Exam: Awake, alert, expressive aphasia with no verbal output, comprhension intact; able to nod yes/no appropriately and write out questions with some word repetition in written sentences. Right facial droop, no focal weakness or sensory deficit, unable to follow finger with eyes to her right side. Imaging: - CT Head @ OSH: small hypodensity in the left kramer radiata - CTA H/N @ OSH: Soft plaque at left ICA causing severe stenosis. Poor image quality d/t poor contrast bolus timing and venous contamination - CTP @ OSH: global hypoperfusion, nondiagnostic - IR Angiogram 11/22: Negative for LVO. 50% stenosis of proximal ICA - MRI Head 11/23: Acute to early subacute cortical-subcortical infarcts involving the left precentral gyrus-frontal opercular region, anterior left periventricular frontal lobe, right middle frontal gyrus, and right external capsule. Additional tiny acute to early subacute left cerebellar infarct. Several tiny chronic bilateral basal ganglia-capsular lacunar infarcts Mild cerebral volume loss and mild patchy supratentorial white matter and pontine FLAIR hyperintensities, likely sequela of chronic microvascular ischemia. - Echocardiogram 11/24: LV apex is akinetic, LV ejection fraction 50-55%. Mildly dilated left atrium, bubble study was suboptimal but without evidence of intracardiac odibr-hm-urrl shunting Labs LDL- 89 A1c - 5.4 Acute Ischemic Strokes, multifocal NSTEMI s/p stenting (11/18) CAD s/p CABG COPD with chronic hypoxia (4L O2 at baseline) - Last known normal 11/22 @1700 - TNK given 11/22 @1906 - Etiology: Suspect cardioembolic - On LONE LEAD LINEMAN DAPT for cardiac reasons with recent stenting - LDL 89; goal <70. Medication therapy increased to Atorvastatin 80mg/day PLAN: > NPO pending CLARISSE - planned for 11/25 1330; awaiting results > Continue DAPT Aspirin 81mg, Plavix 75mg (restarted 11/23 pm) > SPACE OFFICER eval, video swallow planned for 11/26 0800; remaining NPO until then. > Cont LONE LEAD LINEMAN Coreg 25mg daily, Spironolactone 50mg daily > Cont LONE LEAD LINEMAN inhalers > Nicotine replacment patch > PT/OT/Rehab medicine recommending inpatient setting on discharge HTN - BP over last 24 hrs: 132-181/52-117 PLAN: > SBP goal normotensive - Cont LONE LEAD LINEMAN Lisinopril 40mg daily - Resume LONE LEAD LINEMAN Hydralazine 50mg TID - Holding LONE LEAD LINEMAN Clonidine patch FEN: IVF prn, replace lytes prn, Diet NPO PPX: Lovenox Code status: DNAR-Full Intervention Disposition: Continued admission to Stroke. PT/OT/Rehab medicine recommending inpatient setting ondischarge Patient seen and discussed with Dr. Radford, Randal, and Chinmay. Brando Napoles MS3 I personally performed or re-performed the history, physical exam and treatment plan for the E/M. Idiscussed the case with the Medical Student, and concur with the Medical Student documentation of history, physical exam and treatment plan unless otherwise noted. Garrison Tee, DO Neurology, PGY-3 Available on Voalte Subjective: Anayeli Mobley is a 77 y.o. female. No events noted overnight. Patient seen this morning with at bedside, remain unable to speak but able to nod/yes no appropriately, and able to write sentences. Denies any acute pain or headache. No other acute complaints. Objective: Vitals: 11/24/22 2200 11/25/22 0000 11/25/22 0400 11/25/22 0800 BP: (!) 157/67 132/52 (!) 162/68 (!) 181/71 BP Source: Arm, Right Upper Pulse: 70 64 82 79 Temp: 37 °C (98.6 °F) 36.9 °C (98.5 °F) 36.4 °C (97.5 °F) SpO2: 99% 98% 98% 96% O2 Percent: O2 Device: Nasal cannula Nasal cannula Nasal cannula O2 Liter Flow: 4 Lpm 4 Lpm 4 Lpm Weight: Height: Vital Signs: Last Filed Vital Signs: 24 Hour Range BP: 141/67 (11/25 1318) Temp: 36.4 °C (97.5 °F) (11/25 0800) Pulse: 73 (11/25 1318) Respirations: 16 PER MINUTE (11/25 1318) SpO2: 99 % (11/25 1318) O2 Device: Simple mask (11/25 1318) O2 Liter Flow: 6 Lpm (11/25 1318) BP: (130-181)/(52-117) Temp: [36.4 °C (97.5 °F)-37 °C (98.6 °F)] Pulse: [64-82] Respirations: [13 PER MINUTE-24 PER MINUTE] SpO2: [96 %-100 %] O2 Device: Simple mask O2 Liter Flow: 6 Lpm Intensity Pain Scale (Self Report): (not recorded) Intake/Output Summary: (Last 24 hours) Intake/Output Summary (Last 24 hours) at 11/25/2022 1324 Last data filed at 11/25/2022 1309 Gross per 24 hour Intake 400 ml Output -- Net 400 ml Medications: Scheduled Meds:aspirin chewable tablet 81 mg, 81 mg, Per NG tube, QDAY atorvastatin (LIPITOR) tablet 80 mg, 80 mg, Per NG tube, QHS carvediloL (COREG) tablet 25 mg, 25 mg, Per NG tube, BID w/meals CHOLEcalciferoL (vitamin D3) tablet 5,000 Units, 5,000 Units, Oral, QDAY clopiDOGreL (PLAVIX) tablet 75 mg, 75 mg, Per NG tube, QDAY senna (SENOKOT) oral syrup 8.8 mg, 8.8 mg, Oral, BID And docusate sodium (COLACE) oral solution 100 mg, 100 mg, Oral, BID enoxaparin (LOVENOX) syringe 40 mg, 40 mg, Subcutaneous, QDAY(21) hydrALAZINE (APRESOLINE) tablet 50 mg, 50 mg, Oral, Q8H* lisinopriL (ZESTRIL) tablet 40 mg, 40 mg, Per NG tube, QDAY milk of magnesium oral suspension 30 mL, 30 mL, Per NG tube, QDAY nicotine (NICODERM CQ) 21 mg/day patch 1 patch, 1 patch, Transdermal, QDAY pregabalin (LYRICA) capsule 25 mg, 25 mg, Feeding Tube, TID Continuous Infusions: • Diet Enteral Feeding Standard Infusion Stopped (11/25/22 0000) PRN and Respiratory Meds:acetaminophen Q4H PRN, albuterol-ipratropium Q4H PRN, calcium gluconate IV PRN (Mobility Engineer from Rx) AND Ionized Calcium PRN AND Notify Physician Ongoing, magnesium sulfate PRN AND Magnesium PRN AND Notify Physician Ongoing, ondansetron (ZOFRAN) IV Q6H PRN, pancrelipase 20,880 Units/sodium bicarbonate 650 mg (KU CLOG DESTROYER) PRN (Mobility Engineer from Rx), potassium chloride PRN OR potassium chloride PRN OR potassium chloride in water PRN General physical exam: Physical Exam: General: Alert, cooperative, no distress, appears stated age Head: Normocephalic, corpak tube in place Eyes: Conjunctivae/corneas clear. Extremities: Extremities normal, atraumatic, no cyanosis or edema Skin: Skin color, texture, turgor normal. Neuro exam: Mental status: alert, oriented to person/place/time Speech: Expressive aphasia, no verbal speech output, but comprehension intact and able to follow commands, able to write sentences and orientation questions. Cranial Nerves: Normal Abnormal II Pupils reactive, visual felton normal III, IV, no nystagmus Unable to follow finger towards her right side V Sensation nml V1-V3 VII Right facial droop VIII Decreased hearing bilaterally, reports this is her baseline IX, X +strong cough XI Equal shoulder shrug XII Tongue midline Muscle/motor: normal tone/bulk, weakness in Right Wrist extension and Right finger extension 3/5, otherwise symmetric minimal weakness 4+/5 throughout in bilateral upper and lower extremities Sensation: intact to light touch in bilateral upper and lower extremities Coordination: Finger to nose and heel to cruz without ataxia bilaterally Gait and Sation: deferred Reflexes: symmetric 2+ throughout in bilateral upper and lower extremities Laboratory Review: No results found for: "PHART", "PCO2A", "PO2ART", "HCO3A", "BASEEXA", "BASEDEFA", "C5VGQUQDV" Lab Results Component Value Date HGB 9.4 (L) 11/25/2022 HCT 28.9 (L) 11/25/2022 PLTCT 223 11/25/2022 WBC 8.3 11/25/2022 NEUT 65 11/25/2022 ANC 5.38 11/25/2022 Lab Results Component Value Date NA 141 11/25/2022 K 4.4 11/25/2022 CL 104 11/25/2022 CO2 31 (H) 11/25/2022 GAP 6 11/25/2022 BUN 25 11/25/2022 CR 0.85 11/25/2022 GLU 103 (H) 11/25/2022 CA 10.5 11/25/2022 MG 1.8 11/25/2022 PO4 3.2 11/25/2022 OBSCA 1.35 (H) 11/23/2022 TOTPROT 6.3 11/23/2022 AST 19 11/23/2022 ALT 12 11/23/2022 ALKPHOS 56 11/23/2022 No results found for: "TNI", "CKMB", "MYOGLB" No results found for: "PTT", "INR", "FIB", "DIMER", "FDP" No results found for: "TSH", "RZRLD9G", "CORTRAN" Lab Results Component Value Date CHOL 145 11/23/2022 TRIG 111 11/23/2022 HDL 38 (L) 11/23/2022 LDL 89 11/23/2022 VLDL 22 11/23/2022 No results found for: "VANRAN", "VANPK", "VANTR" No results found for: "CYCLOSPOR", "TACROLIMUS", "FREEPHENY" Point of Care Testing: (Last 24 hours): Glucose: (!) 103 POC Glucose (Download): (!) 103 Radiology and Other Diagnostics Review: TRANSESOPHAGEAL ECHO FEEDING TUBE PLCMNT (ABD/CHEST LMTD) Final Result Enteric tube as above. Consider advancement for postpyloric positioning. By my electronic signature, I attest that I have personally reviewed the images for this examination and formulated the interpretations and opinions expressed in this report Finalized by Harpreet Yoon D.O. on 11/24/2022 9:04 AM. Dictated by Christian Bundy M.D. on 11/24/2022 8:22 AM. FEEDING TUBE PLCMNT (ABD/CHEST LMTD) Final Result Findings/impression: Single AP projection of the lower chest and upper abdomen was obtained. Portions of the left lower chest and abdomen were not included within the [id number]. Indwelling enteric tube with the distal tip terminating over the stomach. Prior median sternotomy and CABG. No gas distended loops of bowel within the visualized abdomen. Finalized by Kat Navarro M.D. on 11/23/2022 11:42 AM. Dictated by Kat Navarro M.D.on 11/23/2022 11:41 AM. 2D + DOPPLER ECHO Final Result MRI HEAD WO CONTRAST Final Result 1. Acute to early subacute cortical-subcortical infarcts [...] AM. Dictated by Luis Gupta MD on 34:38 AM. IR CEREBRAL ARTERIOGRAM DIAGNOSTIC WITH INTERVENTION Final Result 1. Mild stenosis of the proximal ICA [...] formulated the interpretations and opinions expressed in thisreport. @TT Finalized by Mikal Hicks M.D. on 11/23/2022 9:14 AM. Dictated by Mikal Hicks M.D. on 11/23/2022 8:[address] HEAD EXTERNAL IMAGING Final Result CTA HEAD EXTERNAL IMAGING Final Result CTA HEAD EXTERNAL IMAGING Final Result CTA HEAD EXTERNAL IMAGING Final Result SWALLOW MOTION SERIES (Results Pending) Associated attestation - Topher Moy MD - 11/25/2022 5:10 PM CDT I personally performed the fofana portions of the E/M visit on : 11/25/22, I discussed case with resident and concur with resident documentation of history, physical exam, assessment, and treatment planunless otherwise noted. * Adri Bazzi, PT - 11/24/2022 3:30 PM CDT PHYSICAL THERAPY NOTE Name: Anayeli Mobley : 1945 Age: 77 y.o. Admission Date: 11/22/2022 LOS: 2 days Date of Service: 11/24/2022 Attempted to see patient for Physical Therapy this date. Patient unable to verbalize answers to questions however she was able to write that she does not feel well at this time. Reports that she was up in chair earlier but politely declines any further activity at this time. Will follow up and treat as able and indicated. Therapist: Adri Bazzi, PT Date: 11/24/2022 * Garrison Tee DO - 11/24/2022 1:46 PM CDT Vascular Neurology Progress Note Today's Date: 11/24/2022 Name: Anayeli MORELANDN: [id number] Admission Date: 11/22/2022 LOS: 2 days Assessment/Plan: Principal Problem: Acute ischemic stroke (HCC) Active Problems: HTN (hypertension) PAD (peripheral artery disease) (HCC) CAD (coronary artery disease) NSTEMI (non-ST elevated myocardial infarction) (HCC) COPD (chronic obstructive pulmonary disease) (HCC) Troponin level elevated Tissue plasminogen activator (tPA) administered at other facility within 24 hours before current admission Leukocytosis Anayeli Mobley is a 77 y.o. female with a PMH of HTN, PAD, CAD s/p CABG, NSTEMI s/p coronary stenting,and COPD who was recently discharged from the hospital on 11/18 for NSTEMI with coronary stenting. On 11/22 at approximately 1700 she developed expressive aphasia, right facial droop and right sided weakness and presented to [facility] ED where she was stroke activated. HCT was obtained and negative for acu te hemorrhage and demonstrated a left hypodensity in the left kramer radiata. CTA/P was complicatedd/t extravisation of contrast and had poor image quality. TNK was given at 1906 and transferred to for possible IR intervention. Patient had digital subtraction angiography with cerebral angiography negative for LVO but showing 50% stenosis of proximal ICA, without large vessel occlusion. MRI revealed multiple small bilateral strokes in the left precentral gyrus-opercular region, anterior leftperiventricular frontal lobe, right middle frontal gyrus, and right external capsule Acute Ischemic Strokes, multifocal NSTEMI s/p stenting (11/18) CAD s/p CABG COPD with chronic hypoxia (4L O2 at baseline) - LKN 11/22 @1700 - TNK given 11/22 @1906 - Etiology: Suspect cardioembolic - On LONE LEAD LINEMAN DAPT for cardiac reasons with recent stenting Current Exam: Awake, alert, expressive aphasia with no verbal output, comprhension intact able to nod yes/no appropriately and write out questions (some minor perserverance with repeated words in written sentence), right facial droop, mild tongue deviation to the right, no focal weakness or sensorydeficit, no ataxia noted Imaging: - CT Head @ OSH: small hypodensity in the left kramer radiata - CTA H/N @ OSH: Soft plaque at left ICA causing severe stenosis. Poor image quality d/t poor contrast bolus timing and venous contamination - CTP @ OSH: global hypoperfusion, nondiagnostic - IR Angiogram 11/22: Negative for LVO. 50% stenosis of proximal ICA - MRI Head 11/23: Acute to early subacute cortical-subcortical infarcts involving the left precentral gyrus-frontal opercular region, anterior left periventricular frontal lobe, right middle frontal gyrus, and right external capsule. Additional tiny acute to early subacute left cerebellar infarct. Several tiny chronic bilateral basal ganglia-capsular lacunar infarcts Mild cerebral volume loss and mild patchy supratentorial white matter and pontine FLAIR hyperintensities, likely sequela of chronic microvascular ischemia. - Echocardiogram 11/24: LV apex is akinetic, LV ejection fraction 50-55%. Mildly dilated left atrium, bubble study was suboptimal but without evidence of intracardiac vonvo-oq-jkxh shunting Labs LDL- 89 A1c - 5.4 PLAN: > CLARISSE - ordered > Continue DAPT (restarted 11/23 pm) > Stop LONE LEAD LINEMAN Simvastatin and start high-intensity statin with Atorvastatin 80mg daily > NPO pending SPACE OFFICER eval, video swallow now planned for tomorrow 11/24 > SBP goal normotensive - Cont LONE LEAD LINEMAN Lisinopril 40mg daily - Holding LONE LEAD LINEMAN Clonidine patch - Cont LONE LEAD LINEMAN Hydralazine prn > Cont LONE LEAD LINEMAN Coreg 25mg daily, Spironolactone 50mg daily > Cont LONE LEAD LINEMAN inhalers > Nicotine replacment patch > PT/OT/Rehab medicine recommending inpatient setting on discharge FEN: IVF prn, replace lytes prn, Diet NPO PPX: Lovenox Code status: DNAR-Full Intervention Disposition: Continued admission to Stroke. PT/OT/Rehab medicine recommending inpatient setting ondischarge Patient seen and discussed with Drs. Radford and Cherelle. Garrison Tee, DO Neurology, PGY-3 Available on Voalte Subjective: Anayeli Mobley is a 77 y.o. female. No events noted overnight. Patient unable to speak but able to communicate with nodding yes/no and writing questions. She denies any current pain or weakness. Objective: Vital Signs: Last Filed Vital Signs: 24 Hour Range BP: 148/54 (11/24 1200) Temp: 36.9 °C (98.4 °F) (11/24 0400) Pulse: 78 (11/24 1200) Respirations: 20 PER MINUTE (11/24 1200) SpO2: 99 % (11/24 0800) O2 Device: Nasal cannula (11/24 0000) O2 Liter Flow: 4 Lpm (11/24 0000) BP: (134-194)/(54-99) Temp: [36.6 °C (97.8 °F)-36.9 °C (98.4 °F)] Pulse: [75-95] Respirations: [14 PER MINUTE-24 PER MINUTE] SpO2: [93 %-99 %] O2 Device: Nasal cannula O2 Liter Flow: 4 Lpm Intensity Pain Scale (Self Report): (not recorded) Intake/Output Summary: (Last 24 hours) Intake/Output Summary (Last 24 hours) at 11/24/2022 1346 Last data filed at 11/24/2022 0800 Gross per 24 hour Intake 1034 ml Output 500 ml Net 534 ml Medications: Scheduled Meds:aspirin chewable tablet 81 mg, 81 mg, Per NG tube, QDAY atorvastatin (LIPITOR) tablet 80 mg, 80 mg, Per NG tube, QHS carvediloL (COREG) tablet 25 mg, 25 mg, Per NG tube, BID w/meals CHOLEcalciferoL (vitamin D3) tablet 5,000 Units, 5,000 Units, Oral, QDAY clopiDOGreL (PLAVIX) tablet 75 mg, 75 mg, Per NG tube, QDAY senna (SENOKOT) oral syrup 8.8 mg, 8.8 mg, Oral, BID And docusate sodium (COLACE) oral solution 100 mg, 100 mg, Oral, BID lisinopriL (ZESTRIL) tablet 40 mg, 40 mg, Per NG tube, QDAY milk of magnesium oral suspension 30 mL, 30 mL, Per NG tube, QDAY nicotine (NICODERM CQ) 21 mg/day patch 1 patch, 1 patch, Transdermal, QDAY pregabalin (LYRICA) capsule 25 mg, 25 mg, Feeding Tube, TID Continuous Infusions: • Diet Enteral Feeding Standard Infusion 40 mL/hr at 11/23/221999 PRN and Respiratory Meds:acetaminophen Q4H PRN, albuterol-ipratropium Q4H PRN, calcium gluconate IV PRN (Mobility Engineer from Rx) AND Ionized Calcium PRN AND Notify Physician Ongoing, hydrALAZINE Q6H PRN, magnesium sulfate PRN AND Magnesium PRN AND Notify Physician Ongoing, ondansetron (ZOFRAN) IV Q6H PRN, pancrelipase 20,880 Units/sodium bicarbonate 650 mg (KU CLOG DESTROYER) PRN (Mobility Engineer from Rx), potassium chloride PRN OR potassium chloride PRN OR potassium chloride in waterPRN General physical exam: Physical Exam: General: Alert, cooperative, no distress, appears stated age Head: Normocephalic, corpak tube in place Eyes: Conjunctivae/corneas clear. Extremities: Extremities normal, atraumatic, no cyanosis or edema Skin: Skin color, texture, turgor normal. Neuro exam: Mental status: alert, oriented to person/place/time Speech: Expressive aphasia, no verbal speech output,but comprehension intact and able to follow commands, able to write sentence Cranial Nerves: Normal Abnormal II Pupils reactive, visual felton normal III, IV, EOMI, no nystagmus V Sensation nml V1-V3 VII Right facial droop VIII nml to finger rub IX, X +strong cough XI Equal shoulder shrug XII Tongue midline Muscle/motor: normal tone/bulk, weakness in Right Wrist extension and Right finger extension 3/5, otherwise symmetric minimal weakness 4+/5 throughout in bilateral upper and lower extremities Sensation: intact to light touch in bilateral upper and lower extremities, some possible RLE neglect to light touch Coordination: Finger to nose and heel to cruz without ataxia bilaterally Gait and Sation: deferred Reflexes: symmetric 2+ throughout in bilateral upper and lower extremities Laboratory Review: No results found for: "PHART", "PCO2A", "PO2ART", "HCO3A", "BASEEXA", "BASEDEFA", "V7PLYLEAD" Lab Results Component Value Date HGB 9.7 (L) 11/24/2022 HCT 29.8 (L) 11/24/2022 PLTCT 223 11/24/2022 WBC 10.4 11/24/2022 NEUT 75 11/24/2022 ANC 7.79 (H) 11/24/2022 Lab Results Component Value Date NA 139 11/24/2022 K 4.2 11/24/2022 CL 104 11/24/2022 CO2 24 11/24/2022 GAP 11 11/24/2022 BUN 23 11/24/2022 CR 0.96 11/24/2022 GLU 120 (H) 11/24/2022 CA 10.0 11/24/2022 MG 1.8 11/24/2022 PO4 3.1 11/24/2022 OBSCA 1.35 (H) 11/23/2022 TOTPROT 6.3 11/23/2022 AST 19 11/23/2022 ALT 12 11/23/2022 ALKPHOS 56 11/23/2022 No results found for: "TNI", "CKMB", "MYOGLB" No results found for: "PTT", "INR", "FIB", "DIMER", "FDP" No results found for: "TSH", "VHEHS1C", "CORTRAN" Lab Results Component Value Date CHOL 145 11/23/2022 TRIG 111 11/23/2022 HDL 38 (L) 11/23/2022 LDL 89 11/23/2022 VLDL 22 11/23/2022 No results found for: "VANRAN", "VANPK", "VANTR" No results found for: "CYCLOSPOR", "TACROLIMUS", "FREEPHENY" Point of Care Testing: (Last 24 hours): Glucose: (!) 120 POC Glucose (Download): (!) 103 Radiology and Other Diagnostics Review: FEEDING TUBE PLCMNT (ABD/CHEST LMTD) Final Result Enteric tube as above. Consider advancement for postpyloric positioning. By my electronic signature, I attest that I have personally reviewed the images for this examination and formulated the interpretations and opinions expressed in this report Finalized by Harpreet Yoon D.O. on 11/24/2022 9:04 AM. Dictated by Christian Bundy M.D. on 11/24/2022 8:22 AM. FEEDING TUBE PLCMNT (ABD/CHEST LMTD) Final Result Findings/impression: Single AP projection of the lower chest and upper abdomen was obtained. Portions of the left lower chest and abdomen were not included within the [id number]. Indwelling enteric tube with the distal tip terminating over the stomach. Prior median sternotomy and CABG. No gas distended loops of bowel within the visualized abdomen. Finalized by Kat Navarro M.D. on 11/23/2022 11:42 AM. Dictated by Kat Navarro M.D.on 11/23/2022 11:41 AM. 2D + DOPPLER ECHO Final Result MRI HEAD WO CONTRAST Final Result 1. Acute to early subacute cortical-subcortical infarcts [...] AM. Dictated by Luis Gupta MD on 34:38 AM. IR CEREBRAL ARTERIOGRAM DIAGNOSTIC WITH INTERVENTION Final Result 1. Mild stenosis of the proximal ICA [...] formulated the interpretations and opinions expressed in thisreport. @TT Finalized by Mikal Hicks M.D. on 11/23/2022 9:14 AM. Dictated by Mikal Hicks M.D. on 11/23/2022 8:[address] HEAD EXTERNAL IMAGING Final Result CTA HEAD EXTERNAL IMAGING Final Result CTA HEAD EXTERNAL IMAGING Final Result CTA HEAD EXTERNAL IMAGING Final Result SWALLOW MOTION SERIES (Results Pending) TRANSESOPHAGEAL ECHO (Results Pending) Associated attestation - Marcus Villarreal DO - 11/25/2022 7:04 AM CDT ATTESTATION I personally performed the fofana portions of the E/M visit, discussed case with resident and concur with resident documentation of history, physical exam, assessment, and treatment plan unless otherwise noted. Staff name: Marcus Villarreal DO Date: 11/25/2022 * Jessica Marroquni OT - 11/24/2022 11:31 AM CDT OCCUPATIONAL THERAPY PROGRESS NOTE Name: Anayeli Mobley : 1945 Age: 77 y.o. Admission Date: 11/22/2022 LOS: 2 days Date of Service: 11/24/2022 Mobility Patient Turn/Position: Chair Progressive Mobility Level: Walk in room Distance Walked (feet): 20 ft Level of Assistance: Assist X1 Assistive Device: None Activity Limited By: Weakness Subjective Pertinent Dx per Physician: 77 y.o. female with a PMH of HTN, PAD, CAD s/p CABG, NSTEMI s/p coronary stenting, and COPD who was recently discharged from the hospital on 11/18 for NSTEMI with coronary stenting. On 11/22 at approximately 1700 she developed expressive aphasia, right facial droop and right sided weakness and presented to OSH ED where she was stroke activated. HCT was obtained and negative for acute hemorrhage and demonstrated a left hypodensity in the left kramer radiata. CTA/P was complicated d/t extravisation of contrast and had poor image quality. TNK was given at 1906 and transferred to for possible IR intervention. Precautions: Standard (3L via NC, SpO2 97%; reports 4L baseline) Pain / Complaints: Patient agrees to participate in therapy;Patient has no c/o pain Comments: Upon arrival, patient in bed. Patient initially not agreeable to therapy, wanting to knowwhere her is. Patient becomes agreeable- in chair with alarm on and all needs in reach at exit. Attempted to call patient's spouse however no answer. Objective Psychosocial Status: Willing and Cooperative to Participate Home Living Type of Home: Mobile Home Home Layout: One Level;Stairs to Enter w/ Rails Bathroom Shower / Tub: Walk-in Shower Bathroom Toilet: Standard Bathroom Equipment: Grab Bars in Shower;Hand-Held Shower Comment: 3 steps to enter with rail Prior Function Level Of Page: Independent with ADLs and functional transfers;Independent with homemaking w/ ambulation Lives With: Spouse Receives Help From: None Needed Other Function Comments: Patient independent with ADLs and mobility. No falls. Spouse reports he works for weeks to months at at time. Vision Corrective Lenses: Wears glasses all of the time (glassess lost in transport from OSH) Comment: Denies visual changes ADL's Where Assessed: Standing at Sink;In Bathroom Grooming Assist: Minimal Assist Grooming Deficits: Steadying Toileting Assist: Minimal Assist Toileting Deficits: Steadying ADL Mobility Bed Mobility: Supine to Sit: Standby assist Bed Mobility Comments: HOB elevated Transfer Type: Sit to stand Transfer: Assistance Level: Minimal assist;From;Bed Transfer: Assistive Device: None Transfer: Type of Assistance: For safety considerations End of Activity Status: Up in chair;Nursing notified;Instructed patient to use call light;Instructed patient to request assist with mobility Transfer Comments: Minimal assist for sit <> stands Sitting Balance: Standby assist Standing Balance: Minimal assist;Static standing balance Gait Distance: 20 feet Gait: Assistance Level: Minimal assist Gait: Assistive Device: None Gait Comments: Patient ambulates with minimal assist x1. Activity Tolerance Endurance: 4/5 Tolerates 30+ Minutes Exercise W/O Fatigue Cognition Cognition Comment: Patient with communication deficits, not able to verbalize. Communicate via writing. ROM R UE ROM: WFL R UE ROM Method: Active L UE ROM: WFL L UE ROM Method: Active Assessment Assessment: Decreased ADL Status;Decreased Endurance;Decreased Self-Care Trans;Decreased High-LevelADLs Prognosis: Good Goal Formulation: Patient Comments: Patient limited by impaired balance, impaired communication, and decreased endurance. Patient will benefit from continued skilled therapy while admitted to increase safety and independence with ADLs and mobility. Patient home alone for weeks at a time as spouse travels for work. AM-PAC 6 Clicks Daily Activity Inpatient Putting on and taking off regular lower body clothes: A Lot Bathing (Including washing, rinsing, drying): A Lot Toileting, which includes using toilet, bedpan, or urinal: A Little Putting on and taking off regular upper body clothing: A Little Taking care of personal grooming such as brushing teeth: A Little Eating meals: Total Daily Activity Raw Score: 14 Standardized (T-scale) Score: 33.39 Plan OT Frequency: 5x/week OT Plan for Next Visit: LB dressing, UE outcome measure, increase mobility ADL Goals Patient Will Perform All ADL's: Independently Functional Transfer Goals Pt Will Perform All Functional Transfers: Independent OT Discharge Recommendations Recommendation: Inpatient setting;Recommend rehab medicine consult Patient Currently Requires Physical Assist With: All mobility;All personal care ADLs;All home functioning ADLs Therapist: NAYELY Daniel/Piper [id number] Date: 11/24/2022 * Radha Mathis - 11/24/2022 10:14 AM CDT SPEECH-LANGUAGE PATHOLOGY DAILY TREATMENT/SPEECH-LANGUAGE ASSESSMENT NOTE Patient seen 1x this date. Documentation reflects all daily treatment sessions. SUMMARY OF THERAPY SESSION: Dysphagia therapy/speech-language evaluation completed. Moderate-severe oropharyngeal dysphagia. Suspected etiology of dysphagia: Motor planning/weakness s/p CVA A speech-language evaluation completed this date. Patient presents with minimal/mild aphasia and severe motor speech impairment (likely apraxia). Auditory comprehension is characterized by minimal/mild impairment and is functional for yes/no questions and complex commands at this time. Difficult to definitively assess verbal expression due to anticipated severe motor speech impairment (likely apraxia) at this time. Written expression appears functional at the sentence/conversation level at thistime. Evidence of motor speech impairment includes: difficulty w/ initiation/coordination of phonation and imprecise articulator placement. Swallow Recommendations PO: Ice chips only NPO: Continue short term non-oral nutrition - Pt may require instrumental evaluation prior to initiation of diet Medications: NG tube Ice Chip Trials: Unlimited Positioning: Upright 90 degrees or chair mode Oral Hygiene: Complete oral care to minimize the risk of aspirating oral bacteria, 3 times per day Communication Strategies Pt able to communicate via written expression reliably SPACE OFFICER services at next level of care Goal : Pt will tolerate ice chip protocol free from overt s/s of aspiration and negative pulmonary status changes. Partly met Comment: No concerns reported re: toleration of ice chips. Pt tolerates ice chip trial today w/ noted incoordination/manipulation. Continue to address this goal Goal : Pt will participate in ongoing clinical swallow evaluation given min cues. Met Comment: Pt assessed w/ ice chips, thin liquids (via tsp/straw/cup), and mildly thick liquids (via tsp/cup) Oral Stage : Withdrawal: Weakened, incoordinated. Unable to coordinate breath for straw withdraw Bolus formation: incoordinated Mastication: limited w/ ice chip Transfer: suspect posterior loss/spreading Anterior bolus spillage: anterior loss of all trials on right Residues: mild pooling within right buccal cavity- requiring suction for removal Pharyngeal stage : O2: Nasal cannula Swallow Initiation: suspect delay Laryngeal elevation: suspect WFL Signs/symptoms of aspiration: Cough present with thin liquids via cup Continue to address this goal Goal : Pt will participate in speech-language evaluation given mild cues. Met Comment: Portions of the Western Aphasia Battery- Revised utilized as shown below. Informal measures were also utilized for assessment as well. Western Aphasia Battery - Revised (WAB-R): Bedside Form Section Task Score Notes Spontaneous speech Information content 1/10 Fluency, grammatical competence, and paraphasias 0/10 No verbalizations present aside from sustained phonation Auditory verbal comprehension Yes/no questions 9/10 Sequential commands 10/10 Repetition Repetition /10 Did not attempt due to severity of speech deficits Naming and word-finding Object naming /10 Did not attempt due to severity of speech deficits Bedside Aphasia Score /100 Very severe: 0-25 Severe: 26-50 Moderate: 51-75 Mild: 76+ VERBAL EXPRESSION/SPEECH: Pt able to elicit phonation on command in 95% of attempts. Automatic speech tasks: pt attempts some mimicking of articulatory placement w/ counting/singing but appears inaccurate and does not elicit phonation alongside attempt. READING COMPREHENSION: Able to point to 6/6 single words. Unable to read aloud WRITTEN EXPRESSION: Pt is able to write at sentence level- wrote concerns re: 's job yesterday. Able to write to request [employer] today. No agraphic errors noted. Continue to address this goal Goal : Pt will participate in instrumental evaluation given mild cues. Not addressed Comment: Did not address this date- potentially tomorrow vs. pending dispo planning timeline Continue to address this goal PLAN / RECOMMENDATIONS: Plan for next visit: Continue POC as above Frequency: 3-5x/week Therapist: Radha Mathis M.A. CCC-SPACE OFFICER Voalte: [id number] Date: 11/24/2022 * Gail Stinson RN - 11/24/2022 3:09 AM CDT Small Bore Feeding Tube Placement Procedure was discussed with patient Time Placed: 0300 Size of Tube: 10f Length of Tube: 109 Physician's order received for feeding tube placement. Placed small bore feeding tube in patient's right nare with Cortrak tracking device. 1 attempt/s made to place tube; air utilized in attempt to advance tube past pylorus. Tube advanced to 60 centimeter madalyn on tube, and secured with nasal bridle to the patient's nose. Minoo Foster RN at bedside to assist. Nurse to confirm correct tube placement via KUB with primary team physician. Procedure completed without complications. * Laura Del Angel MD - 11/23/2022 1:25 PM CDT Neuro Critical Care Progress Note Anayeli Mobley Admission Date: 11/22/2022 LOS: 1 day DNAR-Full Intervention ASSESSMENT/PLAN Anayeli Mobley is a 77 y.o. female with a PMH of HTN, PAD, CAD s/p CABG, NSTEMI s/p coronary stenting,and COPD who was recently discharged from the hospital on 11/18 for NSTEMI with coronary stenting. On 11/22 at approximately 1700 she developed expressive aphasia, right facial droop and right sided weakness and presented to OSH ED where she was stroke activated. HCT was obtained and negative for acute hemorrhage and demonstrated a left hypodensity in the left kramer radiata. CTA/P was complicated d/t extravisation of contrast and had poor image quality. TNK was given at 1906 and transferred to for possible IR intervention. She is no admitted to NEICU for further management and evaluation. Hospital and ICU course: 11/22: TNK. Transferred to for EVT, no intervention Exam: Up in chair, awake, alert No speech output but able to follow commands. Pupils reactive Grimace symmetric Moving all four AG Neuro: Acute Ischemic Stroke s/p TNK Left ICA Stenosis Expressive Aphasia Stroke Symptom Onset time: 1700 on 11/22 TPA given at: 1906 Initial NIH: 17 NIH post TPA: 9 IR: Yes - no intervention Follow up Imaging: MRI wo 1. Acute to early subacute cortical-subcortical infarcts [...] hyperintensities, likely sequela of chronic microvascular ischemia. Finalized by Jayesh Muñoz M.D. on 11/23/2022 5:15 AM. Dictated by Luis Gupta MD on 11/23/2022 4:38 AM. -Risk factor modification -Goal systolic BP - slowly work to normotension -Goal LDL <100. Current value 89. Start statin. -Goal A1C <7. Current value 5.4 -Smoking cessation. - Anti-platelet treatment with DAPT (ASA & Plavix) 24 hrs post TNK - If afib/flutter present: No - Rehab Medicine, PT, OT, SPACE OFFICER consulted - Neuro-ICU monitoring, neurochecks q 1 hrs Imaging: - OSH HCT Impression: small hypodensity in the left kramer radiata - OSH CTA H/N Impression: Soft plaque at left ICA causing severe stenosis. Poor image quality d/t poor contrast bolus timing and venous contamination - OSH CTP: global hypoperfusion, nondiagnostic - IR Angiogram 11/22: Negative for LVO. 50% stenosis of proximal ICA Sedation/Pain Management: Anxiety - PRN APAP - Assess for delirium daily - hold LONE LEAD LINEMAN vallium PRN - Restart LONE LEAD LINEMAN Lyrica 25 - hold LONE LEAD LINEMAN Meloxicam Cardiac: HTN PAD CAD NSTEMI s/p Stenting (11/18/2022) S/P CABG (2011) Plan - SBP goal: normotension - MAP goal > 65 - PRN labetalol & hydralazine available - hold LONE LEAD LINEMAN Coreg 50 mg BID, Lisinopril 40 mg every day, Clonidine 0.3 transdermal patch, Hydralazine 50 mg q8H, Aldactone 50 mg every day for permissive HTN - Will start to resume LONE LEAD LINEMAN meds - continue LONE LEAD LINEMAN Simvastatin 40mg every day - ECHO Somewhat limited study The LV apex is akinetic possibly suggesting an old apical infarct. Overall LV ejection fraction isestimated at 50 to 55%. RV systolic function [...] was suboptimal-there is no evidence of intracardiac cesdi-yl-boww shunting Respiratory: COPD Smoker (2 ppd) - stable on 4L > 4L NC baseline at home - PaO2 goal >100, Spo2 goal >92% - nicotine patch ordered GI: - Feeding: NPO - SPACE OFFICER consulted - consider corpak - neuro bowel regimen, ensure daily BM Heme: - VTE prophylaxis: Pharmacological prophylaxis; Contraindication: Bleeding risk; s/p TNK and Mechanical prophylaxis; Sequential compression device ID: Recent UTI/Kidney Infection (reported by ) - hold LONE LEAD LINEMAN cephalexin 500mg QID - discontinue rocephin 1g Q24H IV - UA w/ Reflex - unremarkable - aim for normothermia, Temp <38.3 celsius, normothermia protocol if febrile Derm: LUE Swelling 2/2 IV contrast extravisation - apply ice packs Renal: - Monitor hourly I/O balance - Aim for normovolemia Endocrine: - Blood glucose goal 100-180mg/dl - monitor glucose on AM labs The patient is critically ill with acute stroke. I spent 39 minutes (excluding time spent performing or supervising any procedures) providing and personally directing critical care services, including reviewing imaging and laboratory results. Staff name: Laura Del Angel MD Date: 11/23/2022 OBJECTIVE Vital Signs: Last Filed Vital Signs: 24 Hour Range BP: 163/57 (09/25 1300) Temp: 36.4 °C (97.6 °F) (11/23 1200) Pulse: 79 (11/23 1299) Respirations: 20 PER MINUTE (11/23 1299) SpO2: 98 % (11/23 1299) O2 Percent: 2 % (11/22 2354) O2 Device: Nasal cannula (11/23 1299) O2 Liter Flow: 3 Lpm (11/23 1299) Height: 152.4 cm (5') (11/23 729) Weight: 60.9 kg (134 lb 4.2 oz) (11/23 729) Admission / Dosing Weight: 60.9 kg (134 lb 4.2 oz) (11/22 2354) BP: (142-192)/(53-81) Temp: [36.4 °C (97.6 °F)-36.6 °C (97.8 °F)] Pulse: [70-103] Respirations: [12 PER MINUTE-30 PER MINUTE] SpO2: [94 %-99 %] O2 Percent: [2 %] O2 Device: Nasal cannula O2 Liter Flow: 3 Lpm Intensity Pain Scale (Self Report): (not recorded) Vitals: 11/22/22235411/23/22729 Weight: 60.9 kg (134 lb 4.2 oz) 60.9 kg (134 lb 4.2 oz) Intake/Output Summary: (Last 24 hours) Intake/Output Summary (Last 24 hours) at 11/23/2022 1325 Last data filed at 11/23/2022 1300 Gross per 24 hour Intake 1362.5 ml Output 1150 ml Net 212.5 ml * Yeny Albrecht APRN-CAUSTIC PREPARER - 11/23/2022 12:01 PM CDT Interventional Radiology Follow Up Note Admission Date: 11/22/2022 LOS: 1 day Principal Problem: Acute ischemic stroke (HCC) Active Problems: HTN (hypertension) PAD (peripheral artery disease) (HCC) CAD (coronary artery disease) NSTEMI (non-ST elevated myocardial infarction) (HCC) COPD (chronic obstructive pulmonary disease) (HCC) Troponin level elevated Tissue plasminogen activator (tPA) administered at other facility within 24 hours before current admission Leukocytosis Procedure completed: Anayeli Mobley is a 77 y.o. female who is status post cerebral arteriogram revealing 50% stenosis of proximal ICA, no LVO on 11/22/2022. Assessment: - Pt alert, resting in bed. Nods appropriately to questions but does not answer questions verbally.Follows commands. Facial droop - NIH 7 - Right radial site with dressing clean, dry and intact. Radial pulse palpable distal to the puncture site. Plan: 1. [place] SBP 120-160, MAP >65. 2. Antiplatelet therapy 24 hours s/p tPA per primary and consulting teams. 3. No immediate f/u necessary with IR. 4. Monitor groin puncture site for bleeding. 5. Continue ICU care, q1h neurochecks. We appreciate being able to participate in this patient's care. Please page with any questions or concerns. Yeny Albrecht APRN-CAUSTIC PREPARER Pgr [phone] IR Team Pager [phone] (After-hours and Weekends) Subjective Patient denies pain, nausea, SOB or fever. Family at bedside Review of Systems Constitutional: negative for fevers Respiratory: negative for increased work of breathing Cardiovascular: negative for chest pain Gastrointestinal: negative for nausea Neurological: negative for headaches Medications Scheduled Meds:aspirin chewable tablet 81 mg, 81 mg, Per NG tube, QDAY carvediloL (COREG) tablet 25 mg, 25 mg, Per NG tube, BID w/meals CHOLEcalciferoL (vitamin D3) tablet 5,000 Units, 5,000 Units, Oral, QDAY clopiDOGreL (PLAVIX) tablet 75 mg, 75 mg, Per NG tube, QDAY senna (SENOKOT) oral syrup 8.8 mg, 8.8 mg, Oral, BID And docusate sodium (COLACE) oral solution 100 mg, 100 mg, Oral, BID IPRATROPIUM-ALBUTEROL 0.5 MG-3 MG(2.5 MG BASE)/3 ML IN NEBU (Cabinet Override), , , NOW lisinopriL (ZESTRIL) tablet 40 mg, 40 mg, Per NG tube, QDAY [START ON 11/24/2022] milk of magnesium oral suspension 30 mL, 30 mL, Per NG tube, QDAY nicotine (NICODERM CQ) 21 mg/day patch 1 patch, 1 patch, Transdermal, QDAY pregabalin (LYRICA) capsule 25 mg, 25 mg, Oral, TID simvastatin (ZOCOR) tablet 40 mg, 40 mg, Per NG tube, QHS Continuous Infusions: • Diet Enteral Feeding Standard Infusion PRN and Respiratory Meds:acetaminophen Q4H PRN, albuterol-ipratropium Q4H PRN, calcium gluconate IV PRN (Mobility Engineer from Rx) AND Ionized Calcium PRN AND Notify Physician Ongoing, hydrALAZINE Q6H PRN, labetalol (NORMODYNE; TRANDATE) injection Q15 MIN PRN, magnesium sulfate PRN AND Magnesium PRN AND Notify Physician Ongoing, ondansetron (ZOFRAN) IV Q6H PRN, pancrelipase 20,880 Units/sodium bicarbonate 650 mg (KU CLOG DESTROYER) PRN (Mobility Engineer from Rx), potassium chloride PRN OR potassium chloride PRN OR potassium chloride in water PRN Objective Vital Signs: Last Filed Vital Signs: 24 Hour Range BP: 176/70 (11/23 1099) Temp: 36.4 °C (97.6 °F) (11/23 1200) Pulse: 92 (11/23 1099) Respirations: 19 PER MINUTE (11/23 1099) SpO2: 97 % (11/23 1099) O2 Percent: 2 % (11/22 4255) O2 Device: Nasal cannula (11/23 1099) O2 Liter Flow: 3 Lpm (11/23 1099) Height: 152.4 cm (5') (11/23 0730) BP: (142-185)/(53-77) Temp: [36.4 °C (97.6 °F)-36.6 °C (97.8 °F)] Pulse: [70-102] Respirations: [12 PER MINUTE-30 PER MINUTE] SpO2: [94 %-99 %] O2 Percent: [2 %] O2 Device: Nasal cannula O2 Liter Flow: 3 Lpm Vitals: 11/22/22 2355 11/23/22 0730 Weight: 60.9 kg (134 lb 4.2 oz) 60.9 kg (134 lb 4.2 oz) Intake/Output Summary: (Last 24 hours) Intake/Output Summary (Last 24 hours) at 11/23/2022 1203 Last data filed at 11/23/2022 1200 Gross per 24 hour Intake 1268.75 ml Output 1150 ml Net 118.75 ml Physical Exam General appearance: alert and no distress Neurologic: Mute. Follows commands. Nods appropriately. Facial droop Lungs: Nonlabored with normal effort Abdomen: soft, non-tender. Extremities: extremities normal, atraumatic, no cyanosis or edema Lab/Radiology/Other Diagnostic Tests: Labs: 24-hour labs: Results for orders placed or performed during the hospital encounter of 11/22/22 (from the past 24 hour(s)) POC GLUCOSE Collection Time: 11/22/22 11:08 PM Result Value Ref Range Glucose, POC 103 (H) 70 - 100 MG/DL IONIZED CALCIUM Collection Time: 11/23/22 1:14 AM Result Value Ref Range Ionized Calcium 1.35 (H) 1.0 - 1.3 MMOL/L CBC AND DIFF Collection Time: 11/23/22 1:14 AM Result Value Ref Range White Blood Cells 15.1 (H) 4.5 - 11.0 K/UL RBC 3.42 (L) 4.0 - 5.0 M/UL Hemoglobin 10.0 (L) 12.0 - 15.0 GM/DL Hematocrit 30.8 (L) 36 - 45 % MCV 90.0 80 - 100 FL MCH 29.4 26 - 34 PG MCHC 32.6 32.0 - 36.0 G/DL RDW 13.4 11 - 15 % Platelet Count 199 150 - 400 K/UL MPV 10.1 7 - 11 FL Neutrophils 90 (H) 41 - 77 % Lymphocytes 5 (L) 24 - 44 % Monocytes 4 4 - 12 % Eosinophils 1 0 - 5 % Basophils 0 0 - 2 % Absolute Neutrophil Count 13.59 (H) 1.8 - 7.0 K/UL Absolute Lymph Count 0.70 (L) 1.0 - 4.8 K/UL Absolute Monocyte Count 0.53 0 - 0.80 K/UL Absolute Eosinophil Count 0.21 0 - 0.45 K/UL Absolute Basophil Count 0.06 0 - 0.20 K/UL COMPREHENSIVE METABOLIC PANEL Collection Time: 11/23/22 1:14 AM Result Value Ref Range Sodium 135 (L) 137 - 147 MMOL/L Potassium 4.0 3.5 - 5.1 MMOL/L Chloride 101 98 - 110 MMOL/L Glucose 101 (H) 70 - 100 MG/DL Blood Urea Nitrogen 19 7 - 25 MG/DL Creatinine 0.87 0.4 - 1.00 MG/DL Calcium 9.9 8.5 - 10.6 MG/DL Total Protein 6.3 6.0 - 8.0 G/DL Total Bilirubin 0.3 0.3 - 1.2 MG/DL Albumin 3.6 3.5 - 5.0 G/DL Alk Phosphatase 56 25 - 110 U/L AST (SGOT) 19 7 - 40 U/L CO2 24 21 - 30 MMOL/L ALT (SGPT) 12 7 - 56 U/L Anion Gap 10 3 - 12 eGFR >60 >60 mL/min HEMOGLOBIN A1C Collection Time: 11/23/22 1:14 AM Result Value Ref Range Hemoglobin A1C 5.4 4.0 - 5.7 % MAGNESIUM Collection Time: 11/23/22 1:14 AM Result Value Ref Range Magnesium 1.9 1.6 - 2.6 mg/dL PHOSPHORUS Collection Time: 11/23/22 1:14 AM Result Value Ref Range Phosphorus 3.4 2.0 - 4.5 MG/DL LIPID PROFILE Collection Time: 11/23/22 1:14 AM Result Value Ref Range Cholesterol 145 <200 MG/DL Triglycerides 111 <150 MG/DL HDL 38 (L) >40 MG/DL LDL 89 <100 mg/dL VLDL 22 MG/DL Non HDL Cholesterol 107 MG/DL HIGH SENSITIVITY TROPONIN I 0 HOUR Collection Time: 11/23/22 1:14 AM Result Value Ref Range hs Troponin I 0 Hour 1,437 (H) <12 ng/L URINALYSIS DIPSTICK REFLEX TO CULTURE Collection Time: 11/23/22 2:07 AM Specimen: Urine Result Value Ref Range Color,UA STRAW Turbidity,UA CLEAR CLEAR-CLEAR Specific [place]-Urine >1.050 (H) 1.005 - 1.030 pH,UA 6.0 5.0 - 8.0 Protein,UA 1+ (A) NEG-NEG Glucose,UA NEG NEG-NEG Ketones,UA TRACE (A) NEG-NEG Bilirubin,UA NEG NEG-NEG Blood,UA NEG NEG-NEG Urobilinogen,UA NORMAL NORM-NORMAL Nitrite,UA NEG NEG-NEG Leukocytes,UA NEG NEG-NEG Urine Ascorbic Acid, UA NEG NEG-NEG URINALYSIS MICROSCOPIC REFLEX TO CULTURE Collection Time: 11/23/22 2:07 AM Specimen: Catheter, In and Out; Urine Result Value Ref Range WBCs,UA 0-2 0 - 2 /HPF RBCs,UA 0-2 0 - 3 /HPF Comment,UA Criteria for reflex to culture are WBC>10, Positive Nitrite, and/or >=+1 leukocytes. If quantity is not sufficient, an addendum will follow. UA Reflex Specimen Type and Source URINE CATHETER, IN AND OUT MucousUA TRACE BASIC METABOLIC PANEL Collection Time: 11/23/22 5:08 AM Result Value Ref Range Sodium 136 (L) 137 - 147 MMOL/L Potassium 5.0 3.5 - 5.1 MMOL/L Chloride 100 98 - 110 MMOL/L CO2 23 21 - 30 MMOL/L Anion Gap 13 (H) 3 - 12 Glucose 100 70 - 100 MG/DL Blood Urea Nitrogen 18 7 - 25 MG/DL Creatinine 0.88 0.4 - 1.00 MG/DL Calcium 10.4 8.5 - 10.6 MG/DL eGFR >60 >60 mL/min CBC AND DIFF Collection Time: 11/23/22 5:08 AM Result Value Ref Range White Blood Cells 12.6 (H) 4.5 - 11.0 K/UL RBC 3.54 (L) 4.0 - 5.0 M/UL Hemoglobin 10.2 (L) 12.0 - 15.0 GM/DL Hematocrit 31.9 (L) 36 - 45 % MCV 89.9 80 - 100 FL MCH 28.8 26 - 34 PG MCHC 32.1 32.0 - 36.0 G/DL RDW 13.7 11 - 15 % Platelet Count 230 150 - 400 K/UL MPV 10.4 7 - 11 FL Neutrophils 95 (H) 41 - 77 % Lymphocytes 3 (L) 24 - 44 % Monocytes 1 (L) 4 - 12 % Eosinophils 0 0 - 5 % Basophils 1 0 - 2 % Absolute Neutrophil Count 13.07 (H) 1.8 - 7.0 K/UL Absolute Lymph Count 0.44 (L) 1.0 - 4.8 K/UL Absolute Monocyte Count 0.17 0 - 0.80 K/UL Absolute Eosinophil Count 0.02 0 - 0.45 K/UL Absolute Basophil Count 0.07 0 - 0.20 K/UL MAGNESIUM Collection Time: 11/23/22 5:08 AM Result Value Ref Range Magnesium 1.8 1.6 - 2.6 mg/dL PHOSPHORUS Collection Time: 11/23/22 5:08 AM Result Value Ref Range Phosphorus 3.5 2.0 - 4.5 MG/DL HIGH SENSITIVITY TROPONIN I 2 HOUR Collection Time: 11/23/22 5:08 AM Result Value Ref Range hs Troponin I 2 Hour 790 (H) <12 ng/L HIGH SENSITIVITY TROPONIN I 4 HR Collection Time: 11/23/22 9:05 AM Result Value Ref Range hs Troponin I 4 Hour 649 (H) <12 ng/L Radiology: Reviewed. * Perlita Longo RN - 11/23/2022 11:40 AM CDT Small Bore Feeding Tube Placement Procedure was discussed with patient Time Placed: 1130 Physician's order received for feeding tube placement. Placed small bore feeding tube in patient's right nare with Cortrak tracking device. 1 attempt/s made to place tube. Tube advanced to 58 centimeter madalyn on tube, and secured with tape to the patient's nare. JONELLE Tiwari at bedside to assist.Nurse to confirm correct tube placement via KUB with primary team physician. Procedure completed without complications. * Jessica Marroquin OT - 11/23/2022 10:22 AM CDT OCCUPATIONAL THERAPY ASSESSMENT NOTE Name: Anayeli Mobley : 1945 Age: 77 y.o. Admission Date: 11/22/2022 LOS: 1 day Date of Service: 11/23/2022 Mobility Patient Turn/Position: Chair Progressive Mobility Level: Walk in room Distance Walked (feet): 20 ft Level of Assistance: Assist X1 Assistive Device: Hand Held Activity Limited By: Weakness Subjective Pertinent Dx per Physician: 77 y.o. female with a PMH of HTN, PAD, CAD s/p CABG, NSTEMI s/p coronary stenting, and COPD who was recently discharged from the hospital on 11/18 for NSTEMI with coronary stenting. On 11/22 at approximately 1700 she developed expressive aphasia, right facial droop and right sided weakness and presented to [facility]SH ED where she was stroke activated. HCT was obtained and negative for acute hemorrhage and demonstrated a left hypodensity in the left kramer radiata. CTA/P was complicated d/t extravisation of contrast and had poor image quality. TNK was given at 1906 and transferred to for possible IR intervention. Precautions: Standard (3L via NC, SpO2 97%; reports 4L baseline) Pain / Complaints: Patient agrees to participate in therapy;Patient has no c/o pain Comments: Upon arrival, patient in bed. After session, patient in chair, alarm on, and all needs inreach. RN notified. Objective Psychosocial Status: Willing and Cooperative to Participate Persons Present: Physical Therapist;Spouse Home Living Type of Home: Mobile Home Home Layout: One Level;Stairs to Enter w/ Rails Bathroom Shower / Tub: Walk-in Shower Bathroom Toilet: Standard Bathroom Equipment: Grab Bars in Shower;Hand-Held Shower Comment: 3 steps to enter with rail Prior Function Level Of Page: Independent with ADLs and functional transfers;Independent with homemaking w/ ambulation Lives With: Spouse Receives Help From: None Needed Other Function Comments: Patient independent with ADLs and mobility. No falls. Spouse reports he works for weeks to months at at time. Vision Corrective Lenses: Wears glasses all of the time (glassess lost in transport from OSH) Comment: Denies visual changes ADL's Comment: Denies need for ADLs ADL Mobility Bed Mobility: Supine to Sit: Standby assist Bed Mobility Comments: HOB elevated Transfer Type: Sit to stand Transfer: Assistance Level: Minimal assist;From;Bed Transfer: Assistive Device: None Transfer: Type of Assistance: For safety considerations End of Activity Status: Up in chair;Nursing notified;Instructed patient to use call light;Instructed patient to request assist with mobility Transfer Comments: Minimal assist for sit <> stands Sitting Balance: Standby assist Standing Balance: Minimal assist Gait Distance: 20 feet Gait: Assistance Level: Minimal assist Gait: Assistive Device: Hand hold assist Gait Comments: Patient ambulates with minimal assist x1 hand hold. Declines out of room mobility. Activity Tolerance Endurance: 4/5 Tolerates 30+ Minutes Exercise W/O Fatigue Cognition Cognition Comment: Patient with communication deficits, not able to verbalize. Yes/no's appear accurate ROM R UE ROM: WFL R UE ROM Method: Active L UE ROM: WFL L UE ROM Method: Active Grasp: Bilateral Grasp Functional for Activity Sensory Overall Sensory: Bilateral Intact UE Strength / Tone Strength Comments: WF Education Persons Educated: Patient Barriers To Learning: Impaired Communication Teaching Methods: Verbal Instruction Patient Response: Verbalized Understanding Topics: Role of OT, Goals for Therapy Goal Formulation: With Patient/Family Assessment Assessment: Decreased ADL Status;Decreased Endurance;Decreased Self-Care Trans;Decreased High-LevelADLs Prognosis: Good Goal Formulation: Patient Comments: Patient limited by impaired balance, impaired communication, and decreased endurance. Patient will benefit from continued skilled therapy while admitted to increase safety and independence with ADLs and mobility. Patient home alone for weeks at a time as spouse travels for work. AM-PAC 6 Clicks Daily Activity Inpatient Putting on and taking off regular lower body clothes: A Lot Bathing (Including washing, rinsing, drying): A Lot Toileting, which includes using toilet, bedpan, or urinal: A Little Putting on and taking off regular upper body clothing: A Little Taking care of personal grooming such as brushing teeth: A Little Eating meals: Total Daily Activity Raw Score: 14 Standardized (T-scale) Score: 33.39 Plan OT Frequency: 5x/week OT Plan for Next Visit: LB dressing, UE outcome measure, increase mobility ADL Goals Patient Will Perform All ADL's: Independently Functional Transfer Goals Pt Will Perform All Functional Transfers: Independent OT Discharge Recommendations Recommendation: Inpatient setting; Recommend IPR Consult Patient Currently Requires Physical Assist With: All mobility;All personal care ADLs;All home functioning ADLs Comments: Anticipate patient's biggest barriers will be her communication. Therapist: NAYELY Daniel/Piper [id number] Date: 11/23/2022 * Adri Bazzi, PT - 11/23/2022 10:20 AM CDT PHYSICAL THERAPY ASSESSMENT Name: Anayeli Mobley : 1945 Age: 77 y.o. Admission Date: 11/22/2022 LOS: 1 day Date of Service: 11/23/2022 Mobility Patient Turn/Position: Chair Progressive Mobility Level: Walk in room Distance Walked (feet): 20 ft Level of Assistance: Assist X1 Assistive Device: Hand Held Activity Limited By: Weakness Subjective Significant hospital events: 77 y.o. female with a PMH of HTN, PAD, CAD s/p CABG, NSTEMI s/p coronary stenting, and COPD who was recently discharged from the hospital on 11/18 for NSTEMI with coronarystenting. On 11/22 at approximately 1700 she developed expressive aphasia, right facial droop and right sided weakness and presented to OSH ED where she was stroke activated. HCT was obtained and negative for acute hemorrhage and demonstrated a left hypodensity in the left kramer radiata. CTA/P was complicated d/t extravisation of contrast and had poor image quality. TNK was given at 1906 and transferred to for possible IR intervention. Mental / Cognitive Status: Alert;Cooperative;Follows Commands (no verbalizatiuons noted this date) Persons Present: Occupational Therapist;Spouse Pain: Patient has no complaint of pain Pain Interventions: Patient agrees to participate in therapy;Patient assisted into position of comfort Comments: Appears consistent with yes/no head shaking as well as writing. Unable to verbalize any words during session Comments: 3 L 02 via NC, 4 L at baseline Ambulation Assist: Independent Mobility in Community without Device Patient Owned Equipment: None Home Situation: Lives with Family (spouse) Type of Home: Mobile Home Entry Stairs: 3-5 Stairs;Rail on 1 Side;Ramp In-Home Stairs: No Stairs Comments: Patient's reports that she was independent with all mobility and ADL prior to admission He works out of town and is often gone for a month at a time. ROM R UE ROM: WFL R UE ROM Method: Active L UE ROM: WFL L UE ROM Method: Active R LE ROM: WFL L LE ROM: WFL Strength R LE Strength: WFL (Grossly 4/5) L LE Strength: WFL (Grossly 4+/5) Strength Comments: WFL Posture/Neurological Head Control: Independent Posture: Rounded shoulders Bed Mobility/Transfer Bed Mobility: Supine to Sit: Standby Assist Comments: Tolerated sitting edge of bed with standby assist Transfer Type: Sit to Stand Transfer: Assistance Level: To/From;Bed;Minimal Assist Transfer: Assistive Device: Hand Hold Assist Transfers: Type Of Assistance: For Balance;For Strength Deficit;For Safety Considerations Other Transfer Type: Stand Pivot (stand-step) Other Transfer: Assistance Level: From;Bed;To;Bed Side Chair;Minimal Assist Other Transfer: Assistive Device: Hand Hold Assist Other Transfer: Type Of Assistance: For Balance;For Strength Deficit;For Safety Considerations End Of Activity Status: Up in Chair;Nursing Notified;Instructed Patient to Request Assist with Mobility;Instructed Patient to Use Call Light (chair alarm active) Balance Sitting Balance: Static Sitting Balance;2 UE Support;Standby Assist Standing Balance: Static Standing Balance;1 UE support;Minimal Assist Gait Gait Distance: 30 feet Gait: Assistance Level: Minimal Assist Gait: Assistive Device: Hand Hold Assist Gait: Descriptors: Pace: Slow;Decreased step length;No balance loss Comments: Patient ambulated 30 feet with room to door and back with minimal assist and hand hold. Second person for lines. Activity Limited By: Complaint of Fatigue;Weakness Activity/Exercise Sit Edge Of Bed: 5 minutes Sit Edge Of Bed Assist: Stand By Assist Stand At Bedside : 1 minutes Stand At Bedside Assist: Minimal Assist Education Persons Educated: Patient;Family Patient Barriers To Learning: Impaired Communication Interventions: Repetition of Instructions;Family Education Teaching Methods: Verbal Instruction Patient Response: More Instruction Required Topics: Plan/Goals of PT Interventions;Mobility Progression;Safety Awareness;Up with Assist Only;Importance of Increasing Activity;Ambulate With Nursing;Recommend Continued Therapy Assessment/Progress Impaired Mobility Due To: Decreased Strength;Impaired Balance;Decreased Activity Tolerance;Medical Status Limitation Assessment/Progress: Should Improve w/ Continued PT AM-PAC 6 Clicks Basic Mobility Inpatient Turning from your back to your side while in a flat bed without using bed rails: A Little Moving from lying on your back to sitting on the side of a flat bed without using bedrails : A Little Moving to and from a bed to a chair (including a wheelchair): A Little Standing up from a chair using your arms (e.g. wheelchair, or bedside chair): A Little To walk in hospital room: A Little Climbing 3-5 steps with a railing: A Lot Basic Mobility Inpatient Raw Score: 17 Standardized (T-scale) Score: 39.67 Goals Goal Formulation: With Patient/Family Time For Goal Achievement: 5 days, To, 7 days Patient Will Go Supine To/From Sit: Independently Patient Will Transfer Sit to Stand: Independently Patient Will Ambulate: Greater than 200 Feet, w/ No Device, Independently Patient Will Go Up / Down Stairs: 3-5 Stairs, w/ Stand By Assist Plan Treatment Interventions: Mobility Training;Strengthening;Balance Activities;Endurance Training Plan Frequency: 5 Days per Week PT Plan for Next Visit: Balance test next visit. Increase ambulation distance into peraza PT Discharge Recommendations Recommendation: Inpatient setting;Recommend rehab medicine consult Therapist Adri Bazzi, PT Date 11/23/2022 * Radha Mathis - 11/23/2022 10:06 AM CDT SPEECH-LANGUAGE PATHOLOGY CLINICAL SWALLOW ASSESSMENT Name: Anayeli Mobley : 1945 Age: 77 y.o. Admission Date: 11/22/2022 LOS: 1 day Date of Service: 11/23/2022 Evaluation Summary Clinical swallow evaluation completed. Clinical Impression: Moderate to severe dysphagia Sources of Dysphagia: Incoordination, Weakness from recent CVA Swallow Recommendations PO: Ice chips only NPO: Consider short term non-oral nutrition - Pt may require instrumental evaluation prior to initiation of diet Medications: NG tube Ice Chip Trials: Unlimited Positioning: Upright 90 degrees or chair mode Oral Hygiene: Complete oral care to minimize the risk of aspirating oral bacteria, 3 times per day Communication Strategies Formal speech-language evaluation was not completed this date, though pt answering yes/no questionsre: self/history reliably. She is also writing at sentence level to communicate- anticipate apraxia PO Presentation Presentations: Therapist Fed, Patient Fed Self Thin Liquid: 1 Tsp, Cup, Straw Mildly Thick Liquid: 1 Tsp Other Consistencies: Ice chips Clinical Interpretation of Oral Stage Withdraw Bolus: Labial weakness, Impaired labial closure (unable to withdraw from straw) Form Bolus: Incoordinated Masticate Bolus: Did not trial masticated solids due to safety concerns (Comment) Transfer Bolus: Suspect early spillover Anterior Bolus Spillage: On right (with thin/mildly thick liquid consistencies) Oral Residue: Mild, Throughout Improvement Observed With: Thin liquid, Mildly thick liquid, Teaspoon Oral Stage Summary: Oral stage characterized by weakness/incoordination. Unable to withdraw from straw despite placement of straw on left side. Anterior loss present consistently, worsened with cup drink Clinical Interpretation of Pharyngeal Stage Swallow Initiation: Delayed Laryngeal Elevation: Suspected to be reduced Signs / Symptoms Of Aspiration: Thin liquid, Mildly thick liquid Thin Liquid: Multiple swallows Mildly Thick Liquid: Multiple swallows Suspected Pharyngeal Stage Impairment: Mistimed airway protection, Decreased laryngeal vestibule closure, Incomplete pharyngeal clearance Pharyngeal Stage Summary: Pt demonstrates multiple swallows across all liquid consistencies trialed. Unable to assess vocal quality consistently. Oral Mech Exam Oral [facility] WFL: No Lips: Impaired ROM - R, Impaired Strength - R, Impaired Sensation - R Tongue: Impaired ROM - Bilateral Buccal: Impaired ROM - R, Impaired Strength - R Velopharynx: (Pt w/ difficulty phonating on command) Vocal Quality: (Difficulty initiating phonation on command. When phonation initiated, variable phonation present. Unable to complete automatic speech task (counting 1-3)) Volitional Cough: Unable to Elicit Dentition: Edentulous (pt has dentures though not currently present) Attempted Swallow Strategies Small Bites/Sips: Not effective Slow Rate of Intake: Not effective Objective Relevant Med Background: Anayeli Mobley is a 77 y.o. female with a PMH of HTN, PAD, CAD s/p CABG, NSTEMI s/p coronary stenting, and COPD who was recently discharged from the hospital on 11/18 for NSTEMI with coronary stenting. On 11/22 at approximately 1700 she developed expressive aphasia, right facialdroop and right sided weakness and presented to OSH ED where she was stroke activated. HCT was obtained and negative for acute hemorrhage and demonstrated a left hypodensity in the left kramer radiata. CTA/P was complicated d/t extravisation of contrast and had poor image quality. TNK was given at 1906 and transferred to for possible IR intervention. She is no admitted to NEICU for further management and evaluation. MRI HEAD WO CONTRAST: IMPRESSION 1. Acute to early subacute cortical-subcortical [...] hyperintensities, likely sequela of chronic microvascular ischemia. Pertinent Dysphagia History: Pt/family denies prior hx of dysphagia. Does report remote hx of pneumonia years ago Psychosocial Status: Willing and Cooperative to Participate Persons Present: Spouse Subjective Pain: Patient has no complaint of pain Pain Level Current: No pain Trach Presence: No Feeding Tube Present During Eval: None Nutrition Nutrition Prior To Hospitalization: Oral, Regular, Thin Liquids Current Form Of Nutrition: NPO Education Persons Educated: Pt/Family Barriers To Learning: Impaired Communication Interventions: Family Educated, Staff Educated, Repetition of Instructions Teaching Methods: Demonstration, Verbal Topics: Dysphagia Patient Response: Unable to Verbalize Understanding, Return Demonstration, More Instruction Required Goal Formulation: With Pt/Family Assessment/Prognosis Plan: 3-5 x/week, Patient would benefit from further SPACE OFFICER therapy post acute hospitalization Prognosis: Good NOMS Dysphagia Ratin6-Gyepxaxskh-Prmyrg Dysphagia -Not able to swallow safely by mouth for nutrition/hydration but may take some consistency w/ consistent max cues in therapy only. Alternative method of feeding required. Clinical Swallow Goals Goal : Pt will tolerate ice chip protocol free from overt s/s of aspiration and negative pulmonary status changes. Goal : Pt will participate in ongoing clinical swallow evaluation given min cues. Goal : Pt will participate in speech-language evaluation given mild cues. Goal : Pt will participate in instrumental evaluation given mild cues. Speech Discharge Recommendations Patient Currently Requires Supervision For: Communication Therapist:Radha Mathis M.A., CCC-SPACE OFFICER Voalte: [id number] Date:11/23/2022 * Elizabeth Silverman APRN-CHRIS - 11/23/2022 6:25 AM CDT Neuro Critical Care Progress Note Anayeli Mobley Admission Date: 11/22/2022 LOS: 1 day DNAR-Full Intervention ASSESSMENT/PLAN Patient Active Problem List Diagnosis Date Noted • Leukocytosis 11/23/2022 • HTN (hypertension) 11/22/2022 • PAD (peripheral artery disease) ([facility]) 11/22/2022 • CAD (coronary artery disease) 11/22/2022 • COPD (chronic obstructive pulmonary disease) ([facility]) 11/22/2022 • Troponin level elevated 11/22/2022 • Tissue plasminogen activator (tPA) administered at other facility within 24 hours before current admission 11/22/2022 • Acute ischemic stroke ([facility]) 11/22/2022 • NSTEMI (non-ST elevated myocardial infarction) ([facility]) 11/18/2022 Anayeli Mobley is a 77 y.o. female with a PMH of HTN, PAD, CAD s/p CABG, NSTEMI s/p coronary stenting,and COPD who was recently discharged from the hospital on 11/18 for NSTEMI with coronary stenting. On 11/22 at approximately 1700 she developed expressive aphasia, right facial droop and right sided weakness and presented to OSH ED where she was stroke activated. HCT was obtained and negative for acute hemorrhage and demonstrated a left hypodensity in the left kramer radiata. CTA/P was complicated d/t extravisation of contrast and had poor image quality. TNK was given at 1906 and transferred to for possible IR intervention. She is no admitted to NEICU for further management and evaluation. Hospital and ICU course: 11/22: TNK. Transferred to for EVT, no intervention 11/23: Restarted Coreg and Lisinopril; ASA, plavix, and Heparin to start tonight at 2100; started L[employer] LINEMAN lyrica, Corpak and TFs; stopped rocephin Neuro: Acute Ischemic Stroke s/p TNK Left ICA Stenosis (50%) Expressive Aphasia Stroke Symptom Onset time: 11/22 @ 1700 TPA given at: 1906 Initial NIH: 17 NIH post TPA: 9 IR: Yes Follow up Imaging: MRI w/o Ischemic Stroke Risk Factors Risk factor Present? Target Patient at target? Comments 1. Hypertension Yes BP <180 No 2. Diabetes No HBA1C<7 Yes 3. Dyslipidemia Yes LDL<70? Yes 4. H/o stroke/TIA No 5. Atrial fibrillation No If yes, anticoag? No If no anticoagulation, why not? 6. Tobacco abuse Yes Quit date N/A Etilogy: Likely atherosclerosis - Went to IR on arrival 11/22: - Findings: 50% stenosis of the proximal ICA and No LVO - Will restart DAPT tonight at 2100 (24hr post TNK) - ASA 81 mg daily - Plavix 75mg daliy - Rehab Medicine, PT, OT, SPACE OFFICER consulted - Neuro-ICU monitoring, neurochecks q 1 hrs - A1C 5.4 - If afib/flutter present: No Imaging: - CT Head @ OSH: small hypodensity in the left kramer radiata - CTA H/N @ OSH: Soft plaque at left ICA causing severe stenosis. Poor image quality d/t poor contrast bolus timing and venous contamination - CTP @ OSH: global hypoperfusion, nondiagnostic - IR Angiogram 11/22: Negative for LVO. 50% stenosis of proximal ICA - MRI Head 11/23: Acute to early subacute cortical-subcortical infarcts involving the left precentral gyrus-frontal opercular region, anterior left periventricular frontal lobe, right middle frontal gyrus, and right external capsule. Additional tiny acute to early subacute left cerebellar infarct. Several tiny chronic bilateral basal ganglia-capsular lacunar infarcts Mild cerebral volume loss and mild patchy supratentorial white matter and pontine FLAIR hyperintensities, likely sequela of chronic microvascular ischemia. Sedation/Pain Management: Anxiety - PRN APAP - Assess for delirium daily - hold LONE LEAD LINEMAN Valim and Mobic - Restart LONE LEAD LINEMAN Lyrica Cardiac: HTN PAD CAD NSTEMI s/p Stenting (11/18/2022) S/P CABG (2011) - SBP goal: <180 - MAP goal > 65 - PRN labetalol & hydralazine available - LONE LEAD LINEMAN Antihypertensives: - Restart LONE LEAD LINEMAN Coreg - Restart Lisinopril - Hold LONE LEAD LINEMAN Clonidine 0.3 transdermal patch - Hold LONE LEAD LINEMAN Hydralazine 50 mg q8H - Hold LONE LEAD LINEMAN Aldactone 50 mg every day for permissive HTN - Continue LONE LEAD LINEMAN Simvastatin 40mg every day - EKG: pending - Lipid Panel WNL, except HDL 38 - Will stop trending troponin's - Troponin 2.25 @ OSH - Troponin 1437 --> 790 --> 649 Echo 11/23: Left ventricle is moderately dilated. Wall thickness increased. Concentric hypertrophy. EF50%. Leftatrium mildly dilated. Mitral valve mild to moderate stenosis MG 6mmHG @90bpm, mild regurgitation. Respiratory: COPD Smoker (2 ppd) - stable on 4L - 4L NC baseline at home - PaO2 goal >100, Spo2 goal >92% - nicotine patch ordered GI/: - Feeding: NPO, TF via Corpak - SPACE OFFICER consulted, suggest NPO with ice chips - Taylor out this morning at 0700 - q4 bladder scans - Straight cath >350. - neuro bowel regimen, ensure daily BM Heme: - Hgb 10.2, Plts 230 - Daily CBC - VTE prophylaxis: - Pharmacological prophylaxis; Will start SQH @ 2100 (24hr post TNK) - Mechanical prophylaxis; Sequential compression device - assess for coagulopathy, maintain platelets above 100k, INR <1.5 ID: Recent UTI/Kidney Infection (reported by ) - Tmax 36.6, WBC 12.6 - Hold LONE LEAD LINEMAN cephalexin 500mg QID - Stopped rocephin - UA: Unremarkable - Aim for normothermia, Temp <38.3 celsius, normothermia protocol if febrile Derm: LUE Swelling 2/2 IV contrast extravisation - Apply ice packs - Consider hyluronidase Renal: - Cr 0.88, BUN 18 - Monitor hourly I/O balance - q4 bladder scans - No spon void at this time - Aim for normovolemia Intake/Output Summary: (Last 24 hours) Intake/Output Summary (Last 24 hours) at 11/23/2022 1104 Last data filed at 11/23/2022 1000 Gross per 24 hour Intake 1118.75 ml Output 1150 ml Net -31.25 ml Endocrine: - Blood glucose goal 100-180mg/dl - monitor glucose on AM labs (100) - HgbA1C pending FEN: - IVF: SL - Daily BMP, Mag, Phos & iCal - Critical care electrolyte replacement protocol - Magnesium goal >2.0, i-Brice goal > 1.0, Potassium goal >4.0 mEq/L Prophylaxis Review: A) GI: None B) Lines: No C) Urinary Catheter: No D) Antibiotic Usage: No E) VTE: Mechanical prophylaxis; Sequential compression device, chemical ppx: heparin, will start tonight 11/23 @ 2100 (24hr pos TNK) F) Isolation: None G)Seizures: None H) Restraints: Patient assessed for need for restraints. I) Disposition/Family: Stable to transfer to floor. Primary service: Neurocritical Care Consults: Neurology and PT/OT and Rehab SUBJECTIVE Anayeli Mobley is a 77 y.o. female. Overnight Events: No new events noted. Patient in bed this morning alert. She has expressive aphasia but was able to nod appropriately. FCs in all extremities. No complaints of pain. at bedside. Discussed plan with patient and spouse OBJECTIVE Vital Signs: Last Filed Vital Signs: 24 Hour Range BP: 177/72 (11/23 1000) Temp: 36.6 °C (97.8 °F) (11/23 0800) Pulse: 96 (11/23 1000) Respirations: 19 PER MINUTE (11/23 999) SpO2: 98 % (11/23 999) O2 Percent: 2 % (11/22 2354) O2 Device: Nasal cannula (11/23 999) O2 Liter Flow: 3 Lpm (11/23 999) Height: 152.4 cm (5') (11/23 729) Weight: 60.9 kg (134 lb 4.2 oz) (11/23 729) Admission / Dosing Weight: 60.9 kg (134 lb 4.2 oz) (11/22 2354) BP: (142-185)/(53-77) Temp: [36.4 °C (97.6 °F)-36.6 °C (97.8 °F)] Pulse: [70-102] Respirations: [12 PER MINUTE-30 PER MINUTE] SpO2: [94 %-99 %] O2 Percent: [2 %] O2 Device: Nasal cannula O2 Liter Flow: 3 Lpm Intensity Pain Scale (Self Report): (not recorded) Vitals: 11/22/22235411/23/22729 Weight: 60.9 kg (134 lb 4.2 oz) 60.9 kg (134 lb 4.2 oz) Artificial airway: None Ventilator/ Respiratory Therapy: No Vent weaning trial: Not applicable Lines: Peripheral Line Drains: None Critical Care Vitals: ICP Monitoring: Hemodynamics/Oxycalcs: Intake/Output Summary: (Last 24 hours) Intake/Output Summary (Last 24 hours) at 11/23/2022 1104 Last data filed at 11/23/2022 1000 Gross per 24 hour Intake 1118.75 ml Output 1150 ml Net -31.25 ml Physical Exam: Blood pressure (!) 177/72, pulse 96, temperature 36.6 °C (97.8 °F), height 152.4 cm (5'), weight 60.9 kg (134 lb 4.2 oz), SpO2 98 %. [place] coma score: E: 4 - Opens eyes on own M: 6 - Follows simple motor commands V: 1 - Makes no noise, expressive aphasia Neuro: Mental Status: Alert and oriented x 4 Cranial Nerves: CHERYLE - Pupil exam: Size: 3 Reactivity: Brisk and Reactive bilaterally - EOM: CHERYLE - Corneal reflex: R - present L - present - Grimace/facial movement: present - Cough: present Motor: RUE: Strength: 3/5; FCs RLE: Strength: 3/5; FCs LUE: Strength: 4/5; FCs LLE: Strength: 4/5; FCs Sensory: normal Coordination: intact Gait: Intact Lungs: clear to auscultation bilaterally Pulmonary: Respiratory status: Stable Heart: regular rate and rhythm, S1, S2 normal, no murmur, click, rub or gallop Abdomen: soft, non-tender. Bowel sounds normal. No masses, no organomegaly Extremities: extremities normal, atraumatic, no cyanosis or edema Skin: Skin color, texture, turgor normal. No rashes or lesions Point of Care Testing: (Last 24 hours) Glucose: 100 (11/23/22 0508) POC Glucose (Download): (!) 103 (11/22/22 2308) Lab Review: Hematology: Lab Results Component Value Date HGB 10.2 11/23/2022 HCT 31.9 11/23/2022 PLTCT 230 11/23/2022 WBC 12.6 11/23/2022 NEUT 95 11/23/2022 ANC 13.07 11/23/2022 ALC 0.44 11/23/2022 DOMINGO 1 11/23/2022 AMC 0.17 11/23/2022 EOSA 0 11/23/2022 ABC 0.07 11/23/2022 MCV 89.9 11/23/2022 MCH 28.8 11/23/2022 MCHC 32.1 11/23/2022 MPV 10.4 11/23/2022 RDW 13.7 11/23/2022 , Coagulation: No results found for: "PT", "PTT", "INR" and General Chemistry: Lab Results Component Value Date NA 136 11/23/2022 K 5.0 11/23/2022 CL 100 11/23/2022 CO2 23 11/23/2022 GAP 13 11/23/2022 BUN 18 11/23/2022 CR 0.88 11/23/2022 GLU 100 11/23/2022 CA 10.4 11/23/2022 ALBUMIN 3.6 11/23/2022 OBSCA 1.35 11/23/2022 MG 1.8 11/23/2022 TOTBILI 0.3 11/23/2022 PO4 3.5 11/23/2022 Radiology and Other Diagnostic Procedures Review: Pertinent radiologic and diagnostic procedures reviewed. I spent 56 minutes managing the care of this patient. Anayeli Mobley is in critical condition s/p ischemic stroke s/p TNK and IR intervention. Cares included: detailed neurologic and systems exam, medication review, laboratory data review and interpretation, electrolyte management, review of availableimaging, DVT/PE prophylaxis review, diet review, activity review, and coordination of care with consulted teams OSEAS Gan Date: 11/23/[phone] * Lydia Tom RT - 11/23/2022 1:56 AM CDT RT Adult Assessment Note NAME:Anayeli Mobley :1945 AGE: 77 y.o. ADMISSION DATE: 11/22/2022 DAYS ADMITTED: LOS: 1 day RT Treatment Plan: Protocol Plan: Medications Albuterol: Nebulizer PRN Ipratropium: Nebulizer PRN Protocol Plan: Procedures PEP Therapy: Place a nursing order for "IS Q1h While Awake" for any of Lung Expansion indicators Oxygen/Humidity: O2 to keep SpO2 > 92%, if on room air for > 24 hours and no other RT modalities are required, then D/C protocol SpO2: BID & PRN Additional Comments: Impressions of the patient: Oriented, VSS on 3 L. No resp distress Intervention(s)/outcome(s): evaluation, slightly wheezy, gave duoneb prn Patient education that was completed: none Recommendations to the care team: cont plan of care Vital Signs: Pulse: 74 RR: 21 PER MINUTE SpO2: 96 % O2 Device: Nasal cannula Liter Flow: (S) 3 Lpm Breath Sounds: Inspiratory wheezes;Expiratory wheezes;Decreased Respiratory Effort: non-labored * Sandra Brooks RN - 11/22/2022 10:44 PM CDT Anesthesia staff present to monitor patient airway, vital signs, and medications. See anesthesia docflow. This RN will assist as needed. documented in this encounter H&P Notes * Dontrell Bender APRN-NP - 11/22/2022 8:33 PM CDT Neuro Critical Care History and Physical Note Anayeli Mobley Admission Date: (Not on file) LOS: 0 days No Order ASSESSMENT/PLAN Patient Active Problem List Diagnosis Date Noted • HTN (hypertension) 11/22/2022 • PAD (peripheral artery disease) ([facility]) 11/22/2022 • CAD (coronary artery disease) 11/22/2022 • COPD (chronic obstructive pulmonary disease) ([facility]) 11/22/2022 • Troponin level elevated 11/22/2022 • Tissue plasminogen activator (tPA) administered at other facility within 24 hours before current admission 11/22/2022 • Acute ischemic stroke ([facility]) 11/22/2022 • NSTEMI (non-ST elevated myocardial infarction) ([facility]) 11/18/2022 Anayeli Mobley is a 77 y.o. female with a PMH of HTN, PAD, CAD s/p CABG, NSTEMI s/p coronary stenting,and COPD who was recently discharged from the hospital on 11/18 for NSTEMI with coronary stenting. On 11/22 at approximately 1700 she developed expressive aphasia, right facial droop and right sided weakness and presented to OSH ED where she was stroke activated. HCT was obtained and negative for acute hemorrhage and demonstrated a left hypodensity in the left kramer radiata. CTA/P was complicated d/t extravisation of contrast and had poor image quality. TNK was given at 1906 and transferred to for possible IR intervention. She is no admitted to NEICU for further management and evaluation. Hospital and ICU course: 11/22: TNK. Transferred to for EVT, no intervention Neuro: Acute Ischemic Stroke s/p TNK Left ICA Stenosis Expressive Aphasia Stroke Symptom Onset time: 1700 on 11/22 TPA given at: 1906 Initial NIH: 17 NIH post TPA: 9 IR: Yes Follow up Imaging: MRI wo Ischemic Stroke Risk Factors Risk factor Present? Target Patient at target? Comments 1. Hypertension Yes BP <180 No 2. Diabetes No HBA1C<7 Pending 3. Dyslipidemia Yes LDL<70? Pending 4. H/o stroke/TIA No 5. Atrial fibrillation No If yes, anticoag? No If no anticoagulation, why not? 6. Tobacco abuse Yes Quit date NA Etiology: likely atheosclerosis - Anti-platelet treatment with DAPT (ASA & Plavix) 24 hrs post TNK pending MRI - If afib/flutter present: No - Rehab Medicine, PT, OT, SPACE OFFICER consulted - Neuro-ICU monitoring, neurochecks q 1 hrs - MRI w/o - hold DAPT for 24hrs Imaging: - OSH HCT Impression: small hypodensity in the left kramer radiata - OSH CTA H/N Impression: Soft plaque at left ICA causing severe stenosis. Poor image quality d/t poor contrast bolus timing and venous contamination - OSH CTP: global hypoperfusion, nondiagnostic - IR Angiogram 11/22: Negative for LVO. 50% stenosis of proximal ICA Sedation/Pain Management: Anxiety - PRN APAP - Assess for delirium daily - hold LONE LEAD LINEMAN vallium PRN - hold LONE LEAD LINEMAN Lyrica 25 TID - hold LONE LEAD LINEMAN Meloxicam Cardiac: HTN PAD CAD NSTEMI s/p Stenting (11/18/2022) S/P CABG (2011) Plan - SBP goal: <180 - MAP goal > 65 - PRN labetalol & hydralazine available - hold LONE LEAD LINEMAN Coreg 50 mg BID, Lisinopril 40 mg every day, Clonidine 0.3 transdermal patch, Hydralazine 50 mg q8H, Aldactone 50 mg every day for permissive HTN - Will start to resume LONE LEAD LINEMAN meds if sustaining >180 - continue LONE LEAD LINEMAN Simvastatin 40mg every day - ECHO for 11/23 - Lipid panel pending - EKG: pending - Trend Troponins > Troponin 2.25 @ OSH Respiratory: COPD Smoker (2 ppd) - stable on 4L > 4L NC baseline at home - PaO2 goal >100, Spo2 goal >92% - nicotine patch ordered GI: - Feeding: NPO - SPACE OFFICER consulted - consider corpak - neuro bowel regimen, ensure daily BM Heme: - Daily CBC - VTE prophylaxis: Pharmacological prophylaxis; Contraindication: Bleeding risk; s/p TNK and Mechanical prophylaxis; Sequential compression device - assess for coagulopathy, maintain platelets above 100k, INR <1.5 ID: Recent UTI/Kidney Infection (reported by ) - Tmax 36.4 - hold LONE LEAD LINEMAN cephalexin 500mg QID - start rocephin 1g Q24H IV - UA w/ Reflex pending - aim for normothermia, Temp <38.3 celsius, normothermia protocol if febrile Derm: LUE Swelling 2/2 IV contrast extravisation - apply ice packs - consider hyluronidase Renal: - Monitor hourly I/O balance - Aim for normovolemia Endocrine: Lab Results Component Value Date GLUPOC 103 (H) 11/22/2022 - Blood glucose goal 100-180mg/dl - monitor glucose on AM labs - HgbA1C pending FEN: - IVF: NS @ 100 ml/hr x1L - Daily BMP, Mag, Phos & iCal - Critical care electrolyte replacement protocol - Magnesium goal >2.0, i-Brice goal > 1.0, Potassium goal >4.0 mEq/L Prophylaxis Review: A) GI: None B) Lines: No C) Urinary Catheter: No D) Antibiotic Usage: Yes; Infection present or suspected: genitourinary infection E) VTE: Pharmacological prophylaxis; Contraindication: Bleeding risk; s/p TNK and Mechanical prophylaxis; Sequential compression device F) Isolation: None G)Seizures: None H) Restraints: Patient assessed for need for restraints. I) Disposition/Family: Needs ICU Primary service: NCC Consults: Neurology Stroke, PT, OT, SPACE OFFICER SUBJECTIVE Chief Complaint: Right sided weakness, aphasia History of Present Illness: Anayeli Mobley is a 77 y.o. female with a PMH of HTN, PAD, CAD s/p CABG, NSTEMI s/p coronary stenting, and COPD who was recently discharged from the hospital on 11/18 for NSTEMI with coronary stenting. On 11/22 at approximately 1700 she developed expressive aphasia, right facial droop and right sided weakness and presented to OSH ED where she was stroke activated. HCT was obtained and negative for acute hemorrhage and demonstrated a left hypodensity in the left kramer radiata. CTA/P was complicated d/t extravisation of contrast and had poor image quality. TNK was given at 1906 and transferred to for possible IR intervention. She is no admitted to [facility] for further m anagement and evaluation. Went into the hospital yesterday with painful urination and was diagnosed with UTI/Kidney infectionper spouse and was later discharged home on Keflex x 5 days. Medical History: Diagnosis Date • CAD (coronary artery disease) • COPD (chronic obstructive pulmonary disease) ([facility]) • HTN (hypertension) • NSTEMI (non-ST elevated myocardial infarction) ([facility]) • PAD (peripheral artery disease) ([facility]) Surgical History: Procedure Laterality Date • HX CORONARY ARTERY BYPASS GRAFT 2011 • CORONARY STENT PLACEMENT 11/18/2022 No family history on file. Social History Social History Narrative • Not on file Code Status: DNAR - Full Intervention Decision Maker: Patient, then Finn Immunizations (includes history and patient reported): There is no immunization history on file for this patient. Allergies: Amlodipine and Sulfa (sulfonamide antibiotics) Medications Prior to Admission Medication Sig • aspirin EC (ASPIR-LOW) 81 mg tablet Take one tablet by mouth daily. • carvediloL (COREG) 12.5 mg tablet Take two tablets by mouth twice daily with meals. Take with food. Indications: high blood pressure • cephalexin (KEFLEX) 500 mg capsule Take one capsule by mouth four times daily. • CHOLEcalciferoL (vitamin D3) 1,000 units tablet Take five tablets by mouth daily. • cloNIDine ([id number]-3) 0.3 mg/day patch Apply one patch to top of skin as directed every 28days. • clopiDOGreL (PLAVIX) 75 mg tablet Take one tablet by mouth daily. Indications: blood clot prevention following percutaneous coronary intervention • diazePAM (VALIUM) 5 mg tablet Take one tablet by mouth three times daily as needed for Anxiety.Indications: anxious • hydrALAZINE (APRESOLINE) 25 mg tablet Take two tablets by mouth every 8 hours. Indications: high blood pressure • lisinopriL (ZESTRIL) 20 mg tablet Take two tablets by mouth daily. Indications: high blood pressure • meloxicam (MOBIC) 15 mg tablet Take one tablet by mouth daily. • pregabalin (LYRICA) 25 mg capsule Take one capsule by mouth three times daily. • simvastatin (ZOCOR) 40 mg tablet Take one tablet by mouth at bedtime daily. Indications: excessive fat in the blood • spironolactone (ALDACTONE) 50 mg tablet Take one tablet by mouth daily. Take with food. • VENTOLIN HFA 90 mcg/actuation inhaler Inhale two puffs by mouth into the lungs every 4 hours asneeded for Wheezing or Shortness of Breath. Indications: chronic obstructive pulmonary disease Review of Systems: A 14 point review of systems was negative except for: Neurological: positive for aphasia OBJECTIVE Vital Signs: Last Filed Vital Signs: 24 Hour Range BP: 155/53 (11/23 99) Temp: 36.4 °C (97.6 °F) (11/22 2354) Pulse: 79 (11/23 99) Respirations: 27 PER MINUTE (11/23 99) SpO2: 97 % (11/23 99) O2 Percent: 2 % (11/22 2354) O2 Device: Nasal cannula (11/23 99) O2 Liter Flow: 4 Lpm (11/23 99) Height: 157.5 cm (5' 2") (11/22 2354) Weight: 60.9 kg (134 lb 4.2 oz) (11/22 2354) BP: (142-158)/(53-63) Temp: [36.4 °C (97.6 °F)] Pulse: [70-79] Respirations: [12 PER MINUTE-27 PER MINUTE] SpO2: [95 %-97 %] O2 Percent: [2 %] O2 Device: Nasal cannula O2 Liter Flow: 4 Lpm Intensity Pain Scale (Self Report): (not recorded) Vitals: 11/22/22 2355 Weight: 60.9 kg (134 lb 4.2 oz) Artificial airway: None Ventilator/ Respiratory Therapy: No Vent weaning trial: Not applicable Lines: Peripheral Line Drains: None Intake/Output Summary: (Last 24 hours) Intake/Output Summary (Last 24 hours) at 11/23/2022 0113 Last data filed at 11/22/2022 2332 Gross per 24 hour Intake 400 ml Output -- Net 400 ml Physical Exam: Blood pressure (!) 155/53, pulse 79, temperature 36.4 °C (97.6 °F), height 157.5 cm (5' 2"), weight 60.9 kg (134 lb 4.2 oz), SpO2 97 %. [place] coma score: E: 4 - Opens eyes on own M: 6 - Follows simple motor commands V: 1 - Makes no noise Neuro: Mental Status: A&O x 4, nods appropriately x 4, Expressive aphasia Cranial Nerves: Cranial nerve 7 (facial asymetry, expressions, taste): Abnormal on Right. - Pupil exam: Size: 3 R/L Reactivity: Brisk - EOM: Intact Motor: RUE: Strength: 4/5; FC RLE: Strength: 3/5; FC LUE: Strength: 4/5; FC LLE: Strength: 4/5; FC Sensory: normal Lungs: clear to auscultation bilaterally Pulmonary: Airway status stable on 4L NC Heart: regular rate and rhythm, S1, S2 normal, no murmur, click, rub or gallop Abdomen: soft, non-tender. Bowel sounds normal. No masses, no organomegaly Extremities: LUE swollen d/t IV contrast extravisation. No edema present in other 3 extremities. Skin: Skin color, texture, turgor normal. No rashes or lesions Point of Care Testing: (Last 24 hours): POC Glucose (Download): (!) 103 (11/22/22 2308) Lab Review: Pertinent labs reviewed Radiology and Other Diagnostic Procedures Review: Pertinent radiologic and diagnostic procedures reviewed. I spent 58 minutes managing the care of this patient. Anayeli Mobley is in critical condition with acute ischemic stroke s/p TNK and EVT requiring close neurological monitoring and stroke work-up. Caresincluded: detailed neurologic and systems exam, medication review, laboratory data review and interpretation, electrolyte management, review of available imaging, DVT/PE prophylaxis review, diet review, activity review, and coordination of care with consulted teams Dontrell Bender, MOLDING ROOM SUPERVISOR-CAUSTIC PREPARER Date: 11/22/[phone] documented in this encounter Procedure Notes * Stephen Darden MD - 11/27/2022 5:49 PM CDT Immediate Post Procedure Note Date: 11/27/2022 Attending Physician: Stephen Darden Performing Provider: Stephen Darden MD Consent: Consent obtained Time out performed: Consent obtained, correct patient verified, correct procedure verified, correctsite verified, patient marked as necessary. Pre/Post Procedure Diagnosis: dysphagia Indications: dysphagia Procedure(s): Gastrostomy tube placement Estimated Blood Loss: None/Negligible Specimen(s) Removed/Disposition: None Complications: None Patient Tolerated Procedure: Well Post-Procedure Condition: stable Stephen Darden MD Pager [phone] * Narendra Mari MD - 11/22/2022 11:36 PM CDT Neuro Interventional Immediate Post Procedure Note Date: 11/22/2022 Attending Physician: Dr. Fabiola MD Rotary Swaging Machine Operator(s): Dr. Jacey Huntley Stroke Treatment Time out performed: Consent obtained, correct patient verified, correct procedure verified, correctsite verified, patient marked as necessary. Indications: Stroke Anesthesia: GA Sedation/Medication Plan: General Anesthesia Post Op Dx: Stroke Findings: 50% stenosis of proximal ICA No LVO. Multifocal intracranial arterial irregularities. Favor atherosclerosis though vasculitis could appear similar. Estimated Blood Loss: None/Negligible Specimen(s) Removed/Disposition: None Complications: None Comments: Right radial artery access Closure Device: TR Band Recommended Blood Pressure Parameters: Per Primary Recommended Anticoagulants: Per primary Neuro Exam: MS: , Speech: , CN: , Motor: Patient sedated, unable to perform neurological exam. Narendra Mari MD documented in this encounter Consult Notes * Kennedi Davidson APRN-NP - 11/27/2022 12:09 PM CDTAssociated Order(s): CONSULT INTERVENTIONAL RADIOLOGY PHYSICIAN Interventional Radiology Consult Note with Pre-procedural History and Physical Admission Date: 11/22/2022 LOS: 5 days Principal Problem: Acute ischemic stroke (HCC) Active Problems: HTN (hypertension) PAD (peripheral artery disease) (HCC) CAD (coronary artery disease) NSTEMI (non-ST elevated myocardial infarction) (HCC) COPD (chronic obstructive pulmonary disease) (HCC) Troponin level elevated Tissue plasminogen activator (tPA) administered at other facility within 24 hours before current admission Leukocytosis Reason for consult: Acute ischemic stroke, dysphagia Assessment: - Admitted with hx of HTN, PAD, CAD s/p CABG, NSTEMI s/p coronary stenting, and COPD who was recently discharged from the hospital on 11/18 for NSTEMI with coronary stenting. On 11/22 at approximately 1700 she developed expressive aphasia, right facial droop and right sided weakness and presented [facility] ED where she was stroke activated. HCT was obtained and negative for acute hemorrhage and demonstrated a left hypodensity in the left kramer radiata. - Review of imaging significant for Safe G tube window - Alert, aphasic - Labs, medications, and allergies meet procedural protocol. - Pt is on a therapeutic blood thinner; unable to hold due to recent stroke - Platelet Count Date Value Ref Range Status 11/27/2022 232 150 - 400 K/UL Final ; No results found for: "INR" Plan: - This case has been reviewed and added onto the [facility] schedule for 11/27/2022. - For sedation purposes, please keep NPO prior to procedure. May take PO medications with sips of water. We appreciate being able to participate in this patient's care. Please page with any questions or concerns. OSEAS Quintana Pgr [phone] IR Team Pager [phone] (After-hours and Weekends) Procedure: G tube placement IR Pre Procedure Notes: Needs phone consent Chief Complaint: Dysphagia Previous Anesthetic/Sedation History: Reviewed. Code Status: DNAR-Full Intervention History of present illness: Anayeli Mobley is a 77 y.o. female patient with hx of stroke/dyphagia. IR consulted for G tube placement. See ROS below for current symptoms Review of Systems Constitutional: negative for fevers, chills and sweats Respiratory: negative for increased work of breathing Gastrointestinal: positive for dysphagia Medications Scheduled Meds:aspirin chewable tablet 81 mg, 81 mg, Per NG tube, QDAY atorvastatin (LIPITOR) tablet 80 mg, 80 mg, Per NG tube, QHS carvediloL (COREG) tablet 25 mg, 25 mg, Per NG tube, BID w/meals CHOLEcalciferoL (vitamin D3) tablet 5,000 Units, 5,000 Units, Oral, QDAY clopiDOGreL (PLAVIX) tablet 75 mg, 75 mg, Per NG tube, QDAY senna (SENOKOT) oral syrup 8.8 mg, 8.8 mg, Oral, BID And docusate sodium (COLACE) oral solution 100 mg, 100 mg, Oral, BID enoxaparin (LOVENOX) syringe 40 mg, 40 mg, Subcutaneous, QDAY(21) hydrALAZINE (APRESOLINE) tablet 50 mg, 50 mg, Per NG tube, Q8H* lisinopriL (ZESTRIL) tablet 40 mg, 40 mg, Per NG tube, QDAY milk of magnesium oral suspension 30 mL, 30 mL, Per NG tube, QDAY nicotine (NICODERM CQ) 21 mg/day patch 1 patch, 1 patch, Transdermal, QDAY pregabalin (LYRICA) capsule 25 mg, 25 mg, Feeding Tube, TID Continuous Infusions: • Diet Enteral Feeding Standard Infusion 20 mL/hr at 11/26/22 0430 PRN and Respiratory Meds:acetaminophen Q4H PRN, albuterol-ipratropium Q4H PRN, calcium gluconate IV PRN (Mobility Engineer from Rx) AND Ionized Calcium PRN AND Notify Physician Ongoing, magnesium sulfate PRN AND Magnesium PRN AND Notify Physician Ongoing, ondansetron (ZOFRAN) IV Q6H PRN, pancrelipase 20,880 Units/sodium bicarbonate 650 mg (KU CLOG DESTROYER) PRN (Mobility Engineer from Rx), potassium chloride PRN OR potassium chloride PRN OR potassium chloride in water PRN Objective Vital Signs: Last Filed Vital Signs: 24 Hour Range BP: 170/54 (11/27 740) Temp: 36.9 °C (98.4 °F) (11/27 740) Pulse: 72 (11/27 740) Respirations: 16 PER MINUTE (11/27 740) SpO2: 98 % (11/27 740) O2 Device: Nasal cannula (11/27 740) O2 Liter Flow: 4 Lpm (11/27 740) BP: (136-170)/(46-57) Temp: [36.4 °C (97.6 °F)-36.9 °C (98.4 °F)] Pulse: [65-74] Respirations: [16 PER MINUTE-18 PER MINUTE] SpO2: [96 %-99 %] O2 Device: Nasal cannula O2 Liter Flow: 4 Lpm Vitals: 11/22/22 2355 11/23/22 0730 Weight: 60.9 kg (134 lb 4.2 oz) 60.9 kg (134 lb 4.2 oz) Intake/Output Summary: (Last 24 hours) Intake/Output Summary (Last 24 hours) at 11/27/2022 1209 Last data filed at 11/27/2022 0925 Gross per 24 hour Intake 939 ml Output 150 ml Net 789 ml Stool Occurrence: 1 Physical Exam General appearance: alert and no distress Neurologic: aphasic Lungs: Nonlabored with normal effort Abdomen: soft, non-tender. Extremities: extremities normal, atraumatic, no cyanosis or edema Airway: Per anesthesia Anesthesia Classification: Per anesthesia Pre procedure anxiolysis plan: Per anesthesia Sedation/Medication Plan: Per anesthesia Personal history of sedation complications: Denies adverse event. Family history of sedation complications: Denies adverse event. Medications for Reversal: Per anesthesia Discussion/Reviews: Physician has discussed risks and alternatives of this type of sedation and above planned procedures with significant other NPO Status: Acceptable Status: Per anesthesia Lab/Radiology/Other Diagnostic Tests: Labs: 24-hour labs: Results for orders placed or performed during the hospital encounter of 11/22/22 (from the past 24 hour(s)) BASIC METABOLIC PANEL Collection Time: 11/27/22 6:08 AM Result Value Ref Range Sodium 137 137 - 147 MMOL/L Potassium 4.7 3.5 - 5.1 MMOL/L Chloride 101 98 - 110 MMOL/L CO2 30 21 - 30 MMOL/L Anion Gap 6 3 - 12 Glucose 103 (H) 70 - 100 MG/DL Blood Urea Nitrogen 33 (H) 7 - 25 MG/DL Creatinine 1.24 (H) 0.4 - 1.00 MG/DL Calcium 9.8 8.5 - 10.6 MG/DL eGFR 45 (L) >60 mL/min CBC AND DIFF Collection Time: 11/27/22 6:08 AM Result Value Ref Range White Blood Cells 8.2 4.5 - 11.0 K/UL RBC 2.95 (L) 4.0 - 5.0 M/UL Hemoglobin 8.6 (L) 12.0 - 15.0 GM/DL Hematocrit 26.7 (L) 36 - 45 % MCV 90.7 80 - 100 FL MCH 29.1 26 - 34 PG MCHC 32.1 32.0 - 36.0 G/DL RDW 13.5 11 - 15 % Platelet Count 232 150 - 400 K/UL MPV 10.0 7 - 11 FL Neutrophils 69 41 - 77 % Lymphocytes 16 (L) 24 - 44 % Monocytes 12 4 - 12 % Eosinophils 3 0 - 5 % Basophils 0 0 - 2 % Absolute Neutrophil Count 5.67 1.8 - 7.0 K/UL Absolute Lymph Count 1.29 1.0 - 4.8 K/UL Absolute Monocyte Count 0.97 (H) 0 - 0.80 K/UL Absolute Eosinophil Count 0.25 0 - 0.45 K/UL Absolute Basophil Count 0.03 0 - 0.20 K/UL MAGNESIUM Collection Time: 11/27/22 6:08 AM Result Value Ref Range Magnesium 2.4 1.6 - 2.6 mg/dL PHOSPHORUS Collection Time: 11/27/22 6:08 AM Result Value Ref Range Phosphorus 3.1 2.0 - 4.5 MG/DL Radiology: Reviewed. * Radha Mathis - 11/26/2022 10:06 AM CDT SPEECH-LANGUAGE PATHOLOGY VIDEOSWALLOW ASSESSMENT EVALUATION SUMMARY Summary Videoswallow Summary: Videofluoroscopic swallow evaluation completed. Overall Impression: Mild-moderate oropharyngeal dysphagia Oral Phase: Moderate impairment- weakness and impaired motor planning/coordination present Penetration Events: Thin/mildly thick before/during the swallow inconsistently with ejection from the vestibule Aspiration Events: none Pharyngeal Residue: none Strategies: Alternating solids/liquids- ineffective to clear oral phase residue Sources of Dysphagia: Weakness, motor planning/coordination- anticipate apraxia Swallow Recommendations PO: Full Liquid Dysphagia Management: Ongoing event operations manager intervention to monitor need for supplemental non-oral nutrition due to concern for overall swallow inefficiency and ability to maintain nutrition via PO intake alone Medications: Crushed in puree Supervision: 1:1 Positioning: Upright 90 degrees or chair mode Swallow Strategies: Small bites/sips, Slow rate of intake, Check for pocketing following oral intake Oral Hygiene: 3 times per day, Complete oral care to minimize the risk of aspirating oral bacteria MBSImp Scale: Lip closure for intraoral bolus containment resulted in bolus escape beyond mid- chin. Tongue control during bolus hold could not be assessed due to logistical reasons not related to physiologic impairment. Bolus preparation and mastication was only minimal chewing/mashing, the majority of the bolusunchewed. Bolus transport/lingual motion was with slowed tongue motion. Oral residue was the majority of the bolus. Initiation of the pharyngeal swallow occured when the bolus head was in the pyriform sinuses. Soft palate elevation resulted in no bolus between the soft palate and the pharyngeal wall. Laryngeal elevation demonstrated complete superior movement of the thyroid cartilage with complete approximation of the arytenoids to the epiglottic petiole. Anterior hyoid excursion demonstrated complete anterior movement. Epiglottic movement resulted in complete inversion. Laryngeal vestibular closure was complete, as indicated by no air or contrast within the laryngeal vestibule at the height of the swallow. Pharyngeal stripping wave was present and complete. Pharyngeal contraction could not be assessed due to logistical reasons not related to physiologic impairment. Pharyngoesophageal segment opening was completely distended for complete duration with no obstruction of bolus flow. Tongue base retraction allowed a trace column of contrast or air between the retracted tongue base and the posterior pharyngeal wall. Pharyngeal residue was a trace within or on pharyngeal structures. Esophageal clearance in the upright position could not be assessed due to logistical reasons not related to physiologic impairment. Plan: 3-5 x/week, Patient would benefit from further SPACE OFFICER therapy post acute hospitalization Prognosis*: Fair, Good NOMS Dysphagia Rating*: [id number] Dysphagia -Swallow safe but usually requires mod cues to use compensatory strategies &/or has mod diet restrictions &/or still requires tube feeding &/or oral supplements. Penetration Aspiration Scale*: 2 - Material enters laryngeal vestibule, remains above vocal folds & is ejected Objective Relevant Med Background: Anayeli Mobley is a 77 y.o. female with HTN, PAD, CAD s/p CABG, NSTEMI s/pcoronary stenting, and COPD who was recently discharged from the hospital on 11/18 for NSTEMI with coronary stenting. On 11/22 at approximately 1700 she developed expressive aphasia, right facial droopand right sided weakness and presented to OSH ED where she was stroke activated. HCT was obtained and negative for acute hemorrhage and demonstrated a left hypodensity in the left kramre radiata. CTA/P was complicated d/t extravisation of contrast and had poor image quality. TNK was given at 1906 and transferred to for possible IR intervention. Patient had digital subtraction angiography with cerebral angiography negative for LVO but showing 50% stenosis of proximal ICA, without large vessel occlusion. MRI revealed multiple small bilateral strokes in the left precentral gyrus-opercular region, anterior left periventricular frontal lobe, right middle frontal gyrus, and right external capsule MRI HEAD WO CONTRAST: IMPRESSION 1. Acute to early subacute cortical-subcortical [...] hyperintensities, likely sequela of chronic microvascular ischemia. Pertinent Dysphagia History: No prior hx of dysphagia Lives With: Spouse Receives Help From: None Needed Psychosocial Status: Willing and Cooperative to Participate Persons Present: Spouse Subjective Pain: Patient has no complaint of pain Pain Level Current: No pain Trach Presence: No Feeding Tube Present During Eval: [place] Nutrition Nutrition Prior To Hospitalization: Oral, Regular, Thin Liquids Current Form Of Nutrition: NPO, NG Views / Seating* Views / Seating: Lateral View, Sitting at 90 Degrees Upright PO Presentation Presentations: Therapist Fed, Patient Fed Self Thin Liquid: 1 Tsp, Cup, Straw (Pt unable to withdraw from straw) Mildly Thick Liquid: Cup, 1 Tsp Moderately Thick Liquid: Cup Other Consistencies: Puree Disclaimer: [facility] utilizes terminology consistent with the International Dysphagia Diet Standardization Initiative (IDDSI) in the management of dysphagia and related food/liquid consistencies. Videofluoroscopic swallow studies are completed using VARIBAR®, a suiteof standardized-viscosity oral contrast preparations. VARIBAR® products utilize terminology consistent with National Dysphagia Diet (NDD), which differs from IDDSI terminology. A list of VARIBAR® products and their IDDSI equivalent terms is outlined below for reference. VARIBAR® product (NDD terms) IDDSI terms Thin liquid Thin (0) [place] Mildly thick (2) Thin Honey Moderately thick (3) Honey Extremely thick (4) Pudding Pureed (4) Attempted Swallow Strategies Small Bites/Sips: Effective Slow Rate of Intake: Effective Alternate Solids/Liquids: Not effective Education* Persons Educated: Patient Barriers To Learning: Impaired Communication Interventions: Staff Educated, Repetition of Instructions Teaching Methods: Verbal, Demonstration Topics: Dysphagia Patient Response: Unable to Verbalize Understanding, Return Demonstration, More Instruction Required Goal Formulation: With Patient Videoswallow Goals* Goal : Pt will tolerate full liquid diet with less than 10% s/s of aspiration and negative pulmonary status changes. Goal : Pt will participate in PO trials of pureed and minced and moist solids given mild cues. Speech Discharge Recommendations Patient Currently Requires Supervision For: Using swallow strategies Therapist: Radha Mathis M.A., CCC-SPACE OFFICER Voalte: [phone] Date: 11/26/2022 * Bianka Daly, RD - 11/23/2022 10:31 AM CDTAssociated Order(s): CONSULT DIETITIAN CLINICAL NUTRITION Clinical Nutrition Initial Assessment Name: Anayeli Mobley : 1945 Age: 77 y.o. Admission Date: 11/22/2022 LOS: 1 day Date of Service: 11/23/2022 Recommendation: • REC Critical Care Volume Based EN of Isosource 1.5 with goal rate of 45 ml/hr + 0pks of prosource protein. (24-hr goal volume of 1080 ml and 4-hr goal volume of 180 ml). At goal provides 1620 kcals, 73g protein, and 821 ml free H2O. Additional water/saline bolus management per primary team and/or minimum 30ml q4hrs. Maintenance fluid flushes if desired are 150ml q4hrs. o Monitor Mg, Phos, K+ closely and replace PRN with goal to keep K+ greater than 4, Phos greater than 3 & Mag greater than 2. • If patient passes SPACE OFFICER swallow eval, recommend least restrictive diet order w/ consistencies perSLP recommendations. Recommend to hold off on feeding tube removal & wean EN as able once pt isable to maintain adequate PO intake. The nutrition-related order modifications are made in communication with the primary service, who remains responsible for the orders and overall care of the patient. Comments: Anayeli Mobley is a 77 y.o. female with a PMH of HTN, PAD, CAD s/p CABG, NSTEMI s/p coronary stenting,and COPD who was recently discharged from the hospital on 11/18 for NSTEMI with coronary stenting. On 11/22 at approximately 1700 she developed expressive aphasia, right facial droop and right sided weakness and presented to OSH ED where she was stroke activated. HCT was obtained and negative for acute hemorrhage and demonstrated a left hypodensity in the left kramer radiata. CTA/P was complicated d/t extravisation of contrast and had poor image quality. TNK was given at 1906 and transferred to for possible IR intervention. She is no admitted to NEICU for further management and evaluation. Dietitian consulted for TF recommendations. SPACE OFFICER eval 11/23 displayed moderate- severe dysphagia. Feeding tube placed this afternoon, tip in stomach. EN not yet started. Spoke with patient and at bedside, patient reported no weight loss without trying prior to admission, consuming 1 to 2 meals per day plus snacks. Reports some constipation and diarrhea over the past year, struggles to find a happy medium with bowel movement consistency. We discussed administration of EN, current feeding tube type, formula to be provided & SPACE OFFICER to follow swallow function. Discussed that appropriate kcal/protein will be provided via EN to aid recovery. Prior to admission patient was taking vitamin D.Clinical nutrition will continue to monitor patient and provide recommendations PRN. Nutrition Assessment of Patient: ; ; Desired Weight: 57.8 kg BMI (Calculated): 26.22; BMI Categories Adult: Over Weight: 25-29.9; Appearance: Appropriate, Overweight Pertinent Allergies/Intolerances: None Pertinent Labs: Na 136, K+ 5.0, Cl 100, CO2 23, BUN 18, Creat 0.88, Mag 1.8, Phos 3.5, Glucose 24hour range NA.; Pertinent Meds: Bowel meds, lyte replacements, others reviewed.; Oral Diet Order: NPO; Current EN Order: Isosource 1.5 at 45ml/hr Current Oral Intake: NPO Estimated Calorie Needs: 4737-7434 (25-30 kcal/kg DBW) Estimated Protein Needs: 69-87 (1.2-1.5 g/kg DBW) Malnutrition Assessment: Does not meet criteria Nutrition Focused Physical Assessment: ; ; ; ; Edema: No; ; Pressure Injury: none Comment: +BM LONE LEAD LINEMAN Nutrition Diagnosis: Inadequate oral intake Etiology: dysphagia Signs & Symptoms: NPO with need for primary source of nutrition via EN Intervention / Plan: Monitor wt, labs, meds, GI symptoms, EN tolerance/provision Assessed nutritional status & provided TF recommendations Goals: Initiate nutrition Time Frame: Within 24 hours EN tolerated and meeting >85% of nutritional needs Time Frame: Within 72 hours Bianka Daly MS, RD, LD, CNSC Available on [facility] Office: [phone] * Mateo Croft DO - 11/23/2022 7:35 AM CDTAssociated Order(s): CONSULT REHABILITATION MEDICINE PHYSICIAN Physical Medicine & Rehabilitation Consult Service Date of Service: 11/23/2022 Anayeli Mobley is a 77 y.o.. : 1945 Financial Class: Payor: MEDICARE / Plan: MEDICARE PART A AND B / Product Type: Medicare / Date of Admission: 11/22/2022 Referring Physician: Laura Del Angel MD Reason for Consult: evaluate for Post-Acute Rehab/Placement Precautions: Fall, aspiration Weight Bearing Precautions: WBAT Active Problems Principal Problem: Acute ischemic stroke (HCC) Active Problems: HTN (hypertension) PAD (peripheral artery disease) (HCC) CAD (coronary artery disease) NSTEMI (non-ST elevated myocardial infarction) (HCC) COPD (chronic obstructive pulmonary disease) (HCC) Troponin level elevated Tissue plasminogen activator (tPA) administered at other facility within 24 hours before current admission Leukocytosis Expressive Aphasia Impaired mobility & ADLs Assessment & Plan Anayeli Mobley is a 77 y.o. female admitted to [facility] on 11/22/2022 with thefollowing issues: Acute ischemic stroke s/p TNK Post acute placement recommendations: Inpatient rehab rotation facility Patient seen and examined at bedside with spouse present. Discussed different levels of rehabilitation facility and they are agreeable to IRF. Spouse reports between family members, patient will have constant assistance. Patient likely has goals in PT and SPACE OFFICER disciplines and medical complexity to warrant acute inpatient rehabilitation admission candidacy. Impairments: dysphagia, poor activity tolerance and weakness Activity Limitations: transfers, ambulation, stairs, expression and memory Participation Restrictions: unable to return home safely Goals: Gait and mobility Mod I Transfers Mod I ADLs Ind Family / Patient Goals: return home with family assistance Cognition / Communication Goals: Speech therapy will evaluate and treat cognition and communicationdeficits and assess for safe swallow Rehabilitation Prognosis: Good Tolerance for three hours of therapy a day: Good The patient was discussed with Dr. Mckenzie. Thank you for this consultation. Please call our consult pager with questions or concerns. Mateo Croft DO PGY 4, PM&R Available on Voalte History of Present Illness CC: weakness Hospital Course: Ms. Anayeli Mobley is a 77 y.o. female and has a past medical history of CAD (coronary artery disease), COPD (chronic obstructive pulmonary disease) ([facility]), HTN (hypertension), NSTEMI (non-ST elevated myocardial infarction) ([facility]), and PAD (peripheral artery disease) ([facility]). The patient presented to OSH on 11/22/2022 with expressive aphasia, right facial droop and right-sided weakness. CT head showed left hypodensity in the left kramer radiator without acute hemorrhage. CTA was complicated by extravasation of contrast. Initial NIH score 17. TNK was given that evening and patient was transferred to [facility]. IR angiogram was negative for LVO, showed 50% stenosis of proximal ICA. Patient was admitted to neuro ICU. Plan to restart DAPT 24 hours post TNK. LONE LEAD LINEMAN medications were restarted for hypertension, PAD, and CAD. Patient has history of COPD and is a smoker, currently stable on 4 L supplemental oxygen via NC (same as baseline at home). UA with reflex was unremarkable during this admission and LONE LEAD LINEMAN cephalexin was held. LONE LEAD LINEMAN Lyrica was restarted for pain. LONE LEAD LINEMAN Valium for anxiety is being held. Patient is NPO with SPACE OFFICER following. Of note patient had recent NSTEMI status post stenting (11/18/2022) and has history of CABG in 2011. The patient's hospital course is functionally complicated by impaired mobility and ADLs. The patient is working with SPACE OFFICER, PT ,and OT to address functional and mobility deficits, rehab is now consulted for post-acute rehab/placement recommendations. Medical History: Diagnosis Date • CAD (coronary artery disease) • COPD (chronic obstructive pulmonary disease) ([facility]) • HTN (hypertension) • NSTEMI (non-ST elevated myocardial infarction) ([facility]) • PAD (peripheral artery disease) ([facility]) Surgical History: Procedure Laterality Date • HX CORONARY ARTERY BYPASS GRAFT 2011 • CORONARY STENT PLACEMENT 11/18/2022 Social History Socioeconomic History • Marital status: Spouse name: Finn • Number of children: 3 Tobacco Use • Smoking status: Former Packs/day: 2 Types: Cigarettes Start date: 1959 Quit date: 11/02/2022 Years since quittin.0 • Smokeless tobacco: Never Vaping Use • Vaping Use: Never used Substance and Sexual Activity • Alcohol use: Never • Drug use: Never • Sexual activity: Not Currently Other Topics Concern • Service No • Blood Transfusions No • Caffeine Concern No • Occupational Exposure No • Hobby Hazards No • Sleep Concern No • Stress Concern No • Weight Concern No • Special Diet No • Back Care No • Exercise No • Bike Helmet No • Seat Belt No • Self-Exams No Social History Narrative 11/23/2022 - Lives with . But travels for work so she is alone often. Independent inADLs and iADLs. Needs O2 at home. Has 3 adult children. Smoker 2ppd, does not drink alcohol, doesnot use drugs. History reviewed. No pertinent family history. Family history: Non-contributory Scheduled Meds:aspirin chewable tablet 81 mg, 81 mg, Per NG tube, QDAY carvediloL (COREG) tablet 25 mg, 25 mg, Per NG tube, BID w/meals CHOLEcalciferoL (vitamin D3) tablet 5,000 Units, 5,000 Units, Oral, QDAY clopiDOGreL (PLAVIX) tablet 75 mg, 75 mg, Per NG tube, QDAY senna (SENOKOT) oral syrup 8.8 mg, 8.8 mg, Oral, BID And docusate sodium (COLACE) oral solution 100 mg, 100 mg, Oral, BID lisinopriL (ZESTRIL) tablet 40 mg, 40 mg, Per NG tube, QDAY [START ON 11/24/2022] milk of magnesium oral suspension 30 mL, 30 mL, Per NG tube, QDAY nicotine (NICODERM CQ) 21 mg/day patch 1 patch, 1 patch, Transdermal, QDAY pregabalin (LYRICA) capsule 25 mg, 25 mg, Feeding Tube, TID simvastatin (ZOCOR) tablet 40 mg, 40 mg, Per NG tube, QHS Continuous Infusions: • Diet Enteral Feeding Standard Infusion 20 mL/hr at 11/23/22 1400 PRN and Respiratory Meds:acetaminophen Q4H PRN, albuterol-ipratropium Q4H PRN, calcium gluconate IV PRN (Mobility Engineer from Rx) AND Ionized Calcium PRN AND Notify Physician Ongoing, hydrALAZINE Q6H PRN, labetalol (NORMODYNE; TRANDATE) injection Q15 MIN PRN, magnesium sulfate PRN AND Magnesium PRN AND Notify Physician Ongoing, ondansetron (ZOFRAN) IV Q6H PRN, pancrelipase 20,880 Units/sodium bicarbonate 650 mg (KU CLOG DESTROYER) PRN (Mobility Engineer from Rx), potassium chloride PRN OR potassium chloride PRN OR potassium chloride in water PRN Allergies Allergen Reactions • Amlodipine RASH • Sulfa (Sulfonamide Antibiotics) UNKNOWN Prior Level of Function Home Environment: Home Situation: Lives with Family (spouse) (11/23/2022 12:00 PM) Patient Owned Equipment: None (11/23/2022 12:00 PM) Type of Home: Mobile Home (11/23/2022 12:00 PM) Entry Stairs: 3-5 Stairs; Rail on 1 Side; Ramp (11/23/2022 12:00 PM) In-Home Stairs: No Stairs (11/23/2022 12:00 PM) Comments: Patient's reports that she was independent with all mobility and ADL prior to admission He works out of town and is often gone for a month at a time. (11/23/2022 12:00 PM) Bathroom Equipment: Grab Bars in Shower; Hand-Held Shower (11/23/2022 11:00 AM) Current Level Of Function: PT Gait:Gait Distance: 30 feet Gait: Assistance Level: Minimal Assist Gait: Assistive Device: Hand Hold Assist Bed Mobility/Transfers Bed Mobility: Supine to Sit: Standby Assist Comments: Tolerated sitting edge of bed with standby assist Transfer Type: Sit to Stand Transfer: Assistance Level: To/From, Bed, Minimal Assist Transfer: Assistive Device: Hand Hold Assist Transfers: Type Of Assistance: For Balance, For Strength Deficit, For Safety Considerations Other Transfer Type: Stand Pivot (stand-step) Other Transfer: Assistance Level: From, Bed, To, Bed Side Chair, Minimal Assist Other Transfer: Assistive Device: Hand Hold Assist Other Transfer: Type Of Assistance: For Balance, For Strength Deficit, For Safety Considerations End Of Activity Status: Up in Chair, Nursing Notified, Instructed Patient to Request Assist with Mobility, Instructed Patient to Use Call Light (chair alarm active) OT ADL's Comment: Denies need for ADLs SPACE OFFICER COGNITIVE EVALUATION SUMMARY PRAGMATICS: BEHAVIOR: AUDITORY COMPREHENSION: ORIENTATION: AUDITORY ATTENTION/WORKING MEMORY: AUDITORY MEMORY/SUSTAINED ATTENTION: NEW LEARNING: SEQUENCING/ORGANIZATION: PROBLEM SOLVING: REASONING: MATH/MONEY SKILLS: VISUAL PERCEPTUAL: SWALLOW EVALUATION SUMMARY Oral Stage Summary: Oral stage characterized by weakness/incoordination. Unable to withdraw from straw despite placement of straw on left side. Anterior loss present consistently, worsened with cup drink Pharyngeal Stage Summary: Pt demonstrates multiple swallows across all liquid consistencies trialed. Unable to assess vocal quality consistently. Swallow Recommendations* PO: Ice chips only Plan: 3-5 x/week, Patient would benefit from further SPACE OFFICER therapy post acute hospitalization Prognosis: Good Review of Systems A 14 point review of systems was negative except for: that noted in the HPI Physical Exam BP: 163/57 (11/23 1299) Temp: 36.4 °C (97.6 °F) (11/23 1200) Pulse: 79 (11/23 1299) Respirations: 20 PER MINUTE (11/23 1299) SpO2: 98 % (11/23 1299) O2 Percent: 2 % (11/22 2355) O2 Device: Nasal cannula (11/23 1299) O2 Liter Flow: 3 Lpm (11/23 1299) Height: 152.4 cm (5') (11/23 0730) Body mass index is 26.22 kg/m². Gen: sitting up in bed in NAD, expressive aphasia, able to follow commands and communicate with nonverbal gestures Head: Normocephalic and atraumatic. Eyes: Conjunctivae and EOM are normal. Cardiovascular: Extremities well perfused. Pulmonary/Chest: Effort normal. No respiratory distress on 4L O2 via NC. Abdominal: Soft. Non-distended. Skin: Skin is warm and dry. Extremities: no peripheral edema Psychiatric: Mood and affect normal. MSK: Root Right Left Elbow Flexion C5 4 4 Wrist Extension C6 5 4 Elbow Extension C7 4 4 Finger Flexion C8 5 5 Finger Abduction T1 5 5 Hip Flexion L2 4 4+ Knee Extension L3 5 5 Dorsiflexion L4 5 5 EHL Extension L5 5 5 Plantarflexion S1 5 5 Neuro: Cranial Nerves R facial droop, EOMI, right tongue deviation, and sensation is intact. DTR's no hyperreflexia Babinski Downgoing Bilaterally Dickerson Negative bilaterally Finger to Nose Normal without ataxia/dysmetria Upper Extremity Tone Normal Lower Extremity Tone Normal Upper Extremity Sensation Intact to light touch bilaterally Lower Extremity Sensation Intact to light touch bilaterally Memory/Concentration Appears intact with non verbal communication, difficult to assess fully secondary to expressive aphasia Intake/Output Summary (Last 24 hours) at 11/23/2022 1452 Last data filed at 11/23/2022 1400 Gross per 24 hour Intake 1392.5 ml Output 1530 ml Net -137.5 ml Hematology: Lab Results Component Value Date HGB 10.2 11/23/2022 HCT 31.9 11/23/2022 PLTCT 230 11/23/2022 WBC 12.6 11/23/2022 NEUT 95 11/23/2022 ANC 13.07 11/23/2022 ALC 0.44 11/23/2022 DOMINGO 1 11/23/2022 AMC 0.17 11/23/2022 EOSA 0 11/23/2022 ABC 0.07 11/23/2022 MCV 89.9 11/23/2022 MCH 28.8 11/23/2022 MCHC 32.1 11/23/2022 MPV 10.4 11/23/2022 RDW 13.7 11/23/2022 , Coagulation: No results found for: "PT", "PTT", "INR" and General Chemistry: Lab Results Component Value Date NA 136 11/23/2022 K 5.0 11/23/2022 CL 100 11/23/2022 CO2 23 11/23/2022 GAP 13 11/23/2022 BUN 18 11/23/2022 CR 0.88 11/23/2022 GLU 100 11/23/2022 CA 10.4 11/23/2022 ALBUMIN 3.6 11/23/2022 OBSCA 1.35 11/23/2022 MG 1.8 11/23/2022 TOTBILI 0.3 11/23/2022 PO4 3.5 11/23/2022 Radiology: Reviewed Associated attestation - Regina Mckenzie MD - 11/23/2022 8:25 PM CDT Rehabilitation Medicine Attending Physician Attestation: I personally performed fofana portions of the history and exam. I discussed the case with the resident, Dr. Croft on 11/23/22 and agree with the resident's documentation of history, physical assessment and treatment plan unless otherwise noted below. Anayeli Mobley is a a 77 y.o. female with a past medical history of CAD, COPD on oxygen at home, PAD who presented on 11/22/2022 with aphasia, right facial droop and right sided weakness. She is s/p TNK.MRI brain notable for the following: "acute to early subacute cortical-subcortical infarcts involving the left precentral gyrus-frontal opercular region, anterior left periventricular frontal lobe, right middle frontal gyrus, and right external capsule, early subacute left cerebellar infarct and several tiny chronic bilateral basal ganglia- capsular lacunar infarcts." On evaluation patient denies any pain or discomfort. Non-fluent aphasia. Communicates by writing with her left hand. Comprehension and attention intact. Functional history: Prior to hospitalization, patient was independent with mobility (no use of assistive device) and ADLs. Currently, the patient was Paulino with PT in ambulation and transfers and is requiring mobility assistance with performance of ADLs in OT. She has impairments in communication secondary to her aphasia.She is able to write intelligibly using her left hand. I have personally reviewed the laboratory and imaging findings. Rehab diagnoses: Left MCA stroke Impairments: Right hemiparesis, aphasia, dysphagia, decreased mobility, decreased ability to perform ADLs Recommendations: Given the patient's medical complexity and current impairments, ability to make functional gains and participate in 3 hours of therapy per day with good carryover recommend inpatientrehabilitation with PT, OT, SPACE OFFICER. Thank you for allowing us to participate in the care of this patient. * Narendra Mari MD - 11/22/2022 9:55 PM CDTAssociated Order(s): CONSULT INTERVENTIONAL RADIOLOGY PHYSICIAN IR Pre Procedure History and Physical/Sedation Plan Name: Anaeyli Mobley : 1945 Age: 77 y.o. Admission Date: (Not on file) LOS: 0 days Date of Service: 11/22/2022 Procedure Date: 11/22/2022 Planned Procedure(s): Stroke Intervention Indication: Stroke Chief Complaint: Right facial droop and right sided weakness History of Present Illness: Anayeli Mobley is a 77 y.o. female with LKW of 1730 now with right facial droop, right weakness, expressive aphasia. TNK given. Recent NSTEMI with stenting. Prior CABG. Active Problems: HTN (hypertension) PAD (peripheral artery disease) ([facility]) CAD (coronary artery disease) NSTEMI (non-ST elevated myocardial infarction) ([facility]) COPD (chronic obstructive pulmonary disease) ([facility]) Troponin level elevated Tissue plasminogen activator (tPA) administered at other facility within 24 hours before current admission Medical History: Diagnosis Date • CAD (coronary artery disease) • COPD (chronic obstructive pulmonary disease) ([facility]) • HTN (hypertension) • NSTEMI (non-ST elevated myocardial infarction) ([facility]) • PAD (peripheral artery disease) ([facility]) Surgical History: Procedure Laterality Date • HX CORONARY ARTERY BYPASS GRAFT 2011 • CORONARY STENT PLACEMENT 11/18/2022 Medications: Inpatient Scheduled Meds:Continuous Infusions: PRN and Respiratory Meds: Allergies: Patient has no allergy information on record. Family history reviewed; non-contributory Review of Systems: {A 14 point review of systems was negative except for: above Previous Anesthetic/Sedation History: No Physical Exam: Vital Signs: Last Filed Vital Signs: 24 Hour Range There were no vitals filed for this visit. General appearance: alert Neurologic: above Lungs: clear to auscultation bilaterally Heart: no click Abdomen: soft, non-tender. Bowel sounds normal. No masses, no organomegaly Extremities: extremities normal, atraumatic, no cyanosis or edema Airway: patent Anesthesia Classification: ASA IV (A patient with an incapacitating systemic disease that is a constant threat to life) NPO Status: Waived due to emergency Status: Not Sedation/Medication Plan: General Anesthesia Discussion/Reviews: Physician has discussed risks and alternatives of this type of sedation and above planned procedures with patient and significant other Lab/Other Diagnostic Tests: Labs: 24-hour labs: No results found for this visit on 11/22/22 (from the past 24 hour(s)). Narendra Mari MD documented in this encounter Miscellaneous Notes * Care Plan - Danelle Reardon, JONELLE - 11/30/2022 3:31 AM CDT Problem: Discharge Planning Goal: Participation in plan of care Outcome: Goal Ongoing Flowsheets (Taken 11/30/2022328) Participation in Plan of Care: Involve patient/caregiver in care planning decision making Goal: Knowledge regarding plan of care Outcome: Goal Ongoing Flowsheets (Taken 11/30/2022328) Knowledge regarding plan of care: Provide admission education to parent/caregiver Provide procedural and treatment education Provide infection prevention education Provide VTE signs and symptoms education Provide plan of care education Provide fall prevention education Provide medication management education Provide pre-operative teaching Goal: Prepared for discharge Outcome: Goal Ongoing Flowsheets (Taken 11/30/2022328) Prepared for discharge: Complete ADL ability assessment Provide safe use medical equipment education Provide discharge activity restrictions education Collaborate with multidisciplinary team for hospital discharge coordination Provide diet and oral health education Provide discharge materials appropriate to patient condition Problem: Neurological Status, Impaired/Altered Goal: Progress toward maximizing functional outcomes Outcome: Goal Ongoing Flowsheets (Taken 11/30/2022328) Progress toward maximizing functional outcomes: Address etiologies Manage environmental safety Promote functional status Observe patient activities Provide positive coping methods education Provide functional status promotion education Provide stroke risk factors, warning signs and symptoms education Establish therapeutic relationship Consider consult for impaired/altered neurological status [place] patient to reality Reduce impaired mental status risk Provide impaired mental status condition education to family/caregiver Provide safety precautions education Goal: Cognitive status restored to baseline Outcome: Goal Ongoing Flowsheets (Taken 11/30/2022328) Cognitive status restored to baseline: Assess patient history Reduce delirium risk Consider consult for impaired cognitive status Observe patient acitvities [place] patient to reality Provide delirium signs and symptoms education Promote rest Complete delirium assessment scale Problem: High Fall Risk Goal: High Fall Risk Outcome: Goal Ongoing Flowsheets (Taken 11/30/2022328) High Fall Risk: All patients will receive: High fall risk sign, yellow wristband, yellow socks, gait belt, and shower shoes Engage bed alarm - middle setting Engage chair alarm Stay with the patient while toileting/showering PT/OT consult for fall prevention assessment if scoring in Unsteady Gait or Visual or Auditory impairment Move patient near RN station if confused (if possible) Remove excess equipment/supplies Educate patient to use call-light if tethered Use shower shoes Maximize bed functionality (optimize bed height, firm/flat surface) Use safe patient handling equipment as appropriate Assess need for bedside commode with drop arm to be available in room Assess need for: quick release belt, PSM (video monitoring), assist x2 using clinical staff/equipment Problem: Skin Integrity Goal: Skin integrity intact Outcome: Goal Ongoing Flowsheets (Taken 11/30/2022328) Skin integrity intact: Assess nutrition Promote nutrition Assure position change Monitor skin integrity Reduce skin shear, friction and tissue load Provide skin care interventions Provide incontinence management interventions Provide skin self-assessment education Consider consult for skin integrity Goal: Healing of skin (Wound & Incision) Outcome: Goal Ongoing Flowsheets (Taken 11/30/2022328) Healing of wound (wounds and Incisions): Assess for signs and symptoms of wound infection Provide wound/incision care as ordered Assess wound site healing Implement wound/incision care as ordered Goal: Healing of skin (Pressure Injury) Outcome: Goal Ongoing Flowsheets (Taken 11/30/2022328) Healing of skin (Pressure Injury): Assess for signs and symptoms of pressure injury infection Use the National Pressure Injury Advisory Panel Staging System for grading pressure injuries Assess pressure injury Promote ambulation Implement pressure relieving device/specialty mattress Implement pressure injury care as ordered Provide pressure injury care education as ordered Problem: Tobacco Use Goal: Knowledge of tobacco-use cessation methods Outcome: Goal Ongoing Flowsheets (Taken 11/30/2022328) Knowledge of tobacco use cessation methods: Offer consult with tobacco erp specialist Offer nicotine replacement to prevent/lessen withdrawal (Obtain provider order) Problem: Harm to self, low risk of suicide Goal: Absence of harm to self, low risk of suicide Outcome: Goal Ongoing Flowsheets (Taken 11/30/2022328) Absence of harm to self: Assess and report significant changes in mood and affect Consider Psychiatry or Psychology consults Provide other resouces such as [place] Inititate safety watch if needed Refer for outpatient support as appropriate Maintain a safe environment Problem: Moderate Fall Risk Goal: Moderate Fall Risk Outcome: Goal Ongoing Flowsheets (Taken 11/30/2022328) Moderate Fall Risk: All patients will receive: High fall risk sign, yellow wristband, yellow socks, gait belt, and shower shoes Engage bed/chair alarm Stay with patient while toileting/showering PT/OT consult for fall prevention assessment if scoring in Unsteady Gait or Visual or Auditory impairment Move patient near RN station if confused (if possible) Remove excess equipment/supplies Use shower shoes Educate patient to use call-light if tethered Maximize bed functionality (optimize bed height, firm/flat surface) Use safe patient handling equipment as appropriate Assess need for bedside commode with drop arm to be available in room * Care Plan - Casandra Bailey RN - 11/28/2022 11:10 PM CDT Problem: Discharge Planning Goal: Participation in plan of care Outcome: Goal Ongoing Problem: Neurological Status, Impaired/Altered Goal: Progress toward maximizing functional outcomes Outcome: Goal Ongoing Problem: High Fall Risk Goal: High Fall Risk Outcome: Goal Ongoing Problem: Skin Integrity Goal: Skin integrity intact Outcome: Goal Ongoing Problem: Tobacco Use Goal: Knowledge of tobacco-use cessation methods Outcome: Goal Ongoing Problem: Harm to self, low risk of suicide Goal: Absence of harm to self, low risk of suicide Outcome: Goal Ongoing Problem: Moderate Fall Risk Goal: Moderate Fall Risk Outcome: Goal Ongoing * Acute Stroke Response - Genia Martins RN - 11/27/2022 1:56 PM CDT RN Stroke Activation Summary Date of Service: 11/27/2022 Anayeli Mobley is a 77 y.o. female. : 1945 Allergies: Amlodipine and Sulfa (sulfonamide antibiotics) Patient Arrival: 2238 ASRT Arrival: 1311 Location of Response : [id number] Page Received: 1309 Clinical Presentation: Right sided weakness Total Stroke Scale Score: 2 Signs & Symptoms: Onset of Symptoms Last Known Well - Date: 11/27/22 Last Known Well - Time: 1300 Dysphagia screen: Patient Intubated?: No (unable to test due to pt being NPO for procedure) Did Patient Pass The Swallow Screen Part I?: No If "No" Name of Physician Notified: FRANCHESKA Jon Plan: Summary: Patient not a candidate for acute stroke intervention at this time. Please see Acute Stroke Response Provider Note for further information. Radiology/Interventional Delay Decision to IR: No Decision to go to Neuro Interventional Radiology Time: (Pt is transfer from OSH) Delays: No N/A IV Thrombolytic in the Scanner: No Plan: Pt returned to [id number] for further workup. Call Completion: 1348 RN handoff: CA11 RN Genia Martins RN * Care Plan - Perlita Longo RN - 11/23/2022 6:36 PM CDT Problem: Discharge Planning Goal: Participation in plan of care Outcome: Goal Ongoing Goal: Knowledge regarding plan of care Outcome: Goal Ongoing Goal: Prepared for discharge Outcome: Goal Ongoing Problem: Neurological Status, Impaired/Altered Goal: Progress toward maximizing functional outcomes Outcome: Goal Ongoing Goal: Cognitive status restored to baseline Outcome: Goal Ongoing Problem: High Fall Risk Goal: High Fall Risk Outcome: Goal Ongoing Problem: Skin Integrity Goal: Skin integrity intact Outcome: Goal Ongoing Goal: Healing of skin (Wound & Incision) Outcome: Goal Ongoing Goal: Healing of skin (Pressure Injury) Outcome: Goal Ongoing Problem: Tobacco Use Goal: Knowledge of tobacco-use cessation methods Outcome: Goal Ongoing * Transfer - Elizabeth Silverman APRN-NP - 11/23/2022 3:41 PM CDT In-Hospital Transfer Note Admission Diagnosis: Acute Ischemic Stroke Admission Date: 11/22/2022 Active Hospital Problem List: Principal Problem: Acute ischemic stroke (HCC) Active Problems: HTN (hypertension) PAD (peripheral artery disease) (HCC) CAD (coronary artery disease) NSTEMI (non-ST elevated myocardial infarction) ([facility]) COPD (chronic obstructive pulmonary disease) (H[facility]) Troponin level elevated Tissue plasminogen activator (tPA) administered at other facility within 24 hours before current admission Leukocytosis Hospital Course: Anayeli Mobley is a 77 y.o. female with a PMH of HTN, PAD, CAD s/p CABG, NSTEMI s/p coronary stenting,and COPD who was recently discharged from the hospital on 11/18 for NSTEMI with coronary stenting. On 11/22 at approximately 1700 she developed expressive aphasia, right facial droop and right sided weakness and presented to [facility] ED and was stroke activated. CT Head was negative for hemorrhage butdemonstrated a left hypodensity in the left kramer radiata. CTA/CTP was complicated d/t extravasatio n of contrast and poor image quality. She was given TNK at 1906 and was then transferred to for potential IR intervention. She was taken to IR, no LVO but 50% stenosis of proximal ICA. > also of note she went to OSH yesterday with painful urination and was diagnosed with UTI/Kidney infection per spouse and was later discharged home on Keflex x 5 days. UA was clean at [facility] priorto arrival and repeat here was unremarkable to antibiotics stopped - Restarted LONE LEAD LINEMAN coreg and Lisinopril today due to elevated pressures - Restarted LONE LEAD LINEMAN Lyrica Significant Medication Information (to include antibiotic duration/indication, anticoagulation and steroids, etc.): SQH, ASA and Plavix to start 11/23 @ 2100 Procedures With Dates: Cerebral angiogram 11/22 Consults: PT/OT/ Rehab Follow-Up Items: None Activity/Weight bearing status: Assist x 1, has some weakness on right Nutrition: TFs via corpak, will have video swallow tomorrow 11/24 Discharge Plan: IPR OSEAS Gan Pager [phone] * Care Plan - Meron Amador RN - 11/23/2022 4:38 AM CDT Problem: Discharge Planning Goal: Participation in plan of care Outcome: Goal Ongoing Goal: Knowledge regarding plan of care Outcome: Goal Ongoing Goal: Prepared for discharge Outcome: Goal Ongoing Problem: Neurological Status, Impaired/Altered Goal: Progress toward maximizing functional outcomes Outcome: Goal Ongoing Goal: Cognitive status restored to baseline Outcome: Goal Ongoing Problem: High Fall Risk Goal: High Fall Risk Outcome: Goal Ongoing Problem: Skin Integrity Goal: Skin integrity intact Outcome: Goal Ongoing Goal: Healing of skin (Wound & Incision) Outcome: Goal Ongoing Goal: Healing of skin (Pressure Injury) Outcome: Goal Ongoing Problem: Infection, Risk of, Urinary Catheter-Associated Urinary Tract Infection Goal: Absence of urinary catheter-associated infection Outcome: Goal Ongoing Problem: Tobacco Use Goal: Knowledge of tobacco-use cessation methods Outcome: Goal Ongoing * Acute Stroke Response - Radha East APRN-NP - 11/22/2022 11:30 PM CDT RN Stroke Activation Summary Date of Service: 11/23/2022 Anayeli Moblye is a 77 y.o. female. : 1945 Allergies: Amlodipine and Sulfa (sulfonamide antibiotics) Patient Arrival: 2237 ASRT Arrival: 2209 Location of Response : 2nd floor N elevator Page Received: 2212 Clinical Presentation: Aphasia, Right facial droop, Dysarthria Total Stroke Scale Score: 10 Signs & Symptoms: Last Known Well Last Known Well - Date: 11/22/22 Last Known Well - Time: 1649 Dysphagia screen: Patient Intubated?: No Did Patient Pass The Swallow Screen Part I?: No If "No" Name of Physician Notified: FRANCHESKA Jon Plan: Summary: Pt is a candidate for IR intervention. PT transported to IR and handoff given to procedural team. See [facility] stroke response provider note for more information. Radiology/Interventional Delay Decision to IR: Yes Decision to go to Neuro Interventional Radiology Time: (Pt is transfer from OSH) Delays: No N/A IV Thrombolytic in the Scanner: No (Pt recieved TNK @ OSH) Plan: IR for thrombectomy and admit to [facility] ICU for post Procedure/ TNK monitoring Call Completion: 2300 RN handoff: IR nurse and JONELLE Chance RN * Acute Stroke Response - Silvana Faust DO - 11/22/2022 9:04 PM CDT Name: Anayeli Mobley : 1945 Age: 77 y.o. Admission Date: 11/22/2022 LOS: 1 day Date of Service: 11/23/2022 Allergies: Amlodipine and Sulfa (sulfonamide antibiotics) Type of Acute Stroke Response Team note: Consult Stroke Activation Tier: Tier 1 Assessment & Plan Chief Complaint: Expressive aphasia, right facial droop, right-sided weakness Assessment: Anayeli Mobley is a 77 y.o. female with history of CAD with prior CABG in 2012 and recent NSTEMI and coronary stents x2 on 11/18/2022 (on DAPT), COPD (4L O2 at baseline), HTN, and Peripheral artery disease that presented to [facility] in [place], [place] due to acute onset right facial droop, right-sided weakness, and expressive aphasia. Last known normal 1700. NIHSS at OSH 17. CTH with small hypodensity in L. kramer radiata, ASPECTS ~10. CTA poor contrast bolus timing and venous contamination, however soft plaque noted at L. ICA origin causing severe narrowing. CTP showed global hypoperfusion (non-diagnostic). TNK administered at 1845. Patient transferred to [facility] for further intervention. NIHSS 9 on arrival. IR for digital subtraction angiography. Cerebral angiography revealed 50% stenosis of proximal ICA, without large vessel occlusion. Impression: Acute ischemic stroke in the left MCA territory Suspected localization of Stroke Sx: Left MCA territory Suspected etiology: Large - Artery Atherosclerosis vs cardioembolic Pre-event Modified Dipti Scale (mRS): 0 - No symptoms at all Plan: > IR for DSA and possible intervention > Admit to NEICU as patient is s/p TNK > Post TNK care: - Vital signs and neurochecks: <Q15 mins for the first 2 hrs <Q30 mins for the next 6 hrs <Q1hr for the next 16 hrs - maintain goal BP of of <180/105, but try to not go below SBP 120. <consider Labetalol IV 10 mg IV Q10-20 mins <consider Nicardipine drip - start 5 mg/hr, titrate by 2.5 mg/hr Q5 minutes (max 15 mg/hr) for desired goal - avoid rapid reversal of high blood pressure - minimize risks of bleeding for at least 24 hrs after tPA: <no antiplatelets or anticoagulation <avoid blood draws where possible or invasive lines <delay placement of nasogastric tubes (Corpaks) or urinary catheters - if there are any new neurologic deficits or mental status changes, acquire STAT CT head w/o to assess for hemorrhage > SBP goals: < 180 > DAPT 24 hours after TNK > MRI head without contrast > Stroke risk factor assessment Labs to include FLP, A1c Echocardiogram with bubble Telemetry to monitor for arrhythmia Evaluation of smoking history and smoking cessation consult if tobaccoism present Antiplt therapy: DAPT to start 24 hr after TNK > PT/OT/SPACE OFFICER consult eval and treat > Rehab consult for assessment of post stroke care The patient was seen and plan discussed with Dr. Morrison and Dr. Bharat Faust, DO PGY4, Neurology Resident Available on [employer] History of Present Illness History of Present Illness: HPI obtained through chart review as patient has expressive aphasia Anayeli Mobley is a 77 y.o. female with history of CAD with prior CABG in 2011 and recent NSTEMI and coronary stents x2 on 11/18/2022 (on DAPT), COPD (4L O2 at baseline), HTN, and Peripheral artery disease that presented to [facility] in [place], [place] due to acute onset right facialdroop, right- sided weakness, and expressive aphasia. Last known normal 1700. NIHSS at OSH 17. CTH with small hypodensity in L. kramer radiata, ASPECTS ~10. CTA poor contrast bolus timing and venous contamination, however soft plaque noted at L. ICA origin causing severe narrowing. CTP showed globalhypoperfusion (non- diagnostic). TNK administered at 1845. Patient transferred to [facility] for further intervention. NIHSS 9 on arrival. IR for digital subtraction angiography. Cerebral angiography revealed 50% stenosis of proximal ICA, without large vessel occlusion. Review of Systems Limited due to expressive aphasia Stroke Activation Summary CT/CTP/CTA: CTH with small hypodensity in L. kramer radiata, ASPECTS ~10. CTA poor contrast bolus timing and venous contamination, however soft plaque noted at L. ICA origin causing severe narrowing. CTP showed global hypoperfusion (non-diagnostic). BP: 148/70 (11/23 0115) Temp: 36.4 °C (97.6 °F) (11/22 2355) Pulse: 74 (11/23 0138) Respirations: 21 PER MINUTE (11/23 013) SpO2: 96 % (11/23 137) O2 Percent: 2 % (11/22 2354) O2 Device: Nasal cannula (11/23 137) O2 Liter Flow: 3 Lpm (11/23 137) Height: 157.5 cm (5' 2") (11/22 2354) NIHSS Completed at: 2230 NIH Stroke Scale Item Scoring Definition Score 1a. LOC 0=alert and responsive 1=arousable to minor stimulation 2=arousable only to painful stimulation 3=reflex responses or unrousable 0 1b. LOC questions-as patient’s age and month. Must be exact. 0=both correct 1=one correct (or dysarthria, intubated, foreign language) 2=neither correct 2 1c. Commands-open/close eyes, shift superintendent and release non-paretic hand (other 1 step commands or mimic OK) 0=both correct (ok if impaired by weakness) 1=one correct 2=neither correct 0 2. Best Gaze-horizontal EOM by voluntary or Doll’s 0=normal 1=partial gaze palsy (abnormal gaze in one or both eyes) 2=forced eye deviation or total paresis which cannot be overcome by Doll’s 0 3. Visual Field-use visual threat if necessary. If monocular, score field of good eye 0=no visual loss 1=partial hemianopia, quadrantanopia, extinction 2=complete hemianopia 3=bilateral hemianopia or blindness 0 4. Facial Palsy-if stuporous, check symmetry of grimace to pain 0=normal 1=minor paralysis, flat NLF, asymm smile 2=partial paralysis (lower face=UMN) 3=complete paralysis (upper and lower face) 2 5. Motor Arm-arms outstretched 90 deg (sitting) or 45 deg (supine) for 10 seconds. Encourage best effort. 0=no drift x 10 seconds 1=drift but doesn’t hit bed 2=some antigravity effort, but can’t sustain 3=no antigravity effort, but even minimal mvt counts 4=no movement at all X=unable to assess due to amputation, fusion, etc L/R 0/0 6. Motor Leg-raise leg to 30 degrees supine x 5 seconds 0=no drift x 5 seconds 1=drift but doesn’t hit bed 2=some antigravity effort, but can’t sustain 3=no antigravity effort, but even minimal mvt counts 4=no movement at all X=unable to assess due to amputation, fusion, etc L/R 0/0 7. Limb Ataxia-check finger-nose- finger; heel-cruz; and score only if out of proportion to paralysis 0=no ataxia (or aphasic, hemiplegic) 1=ataxia in upper or lower extremity 2=ataxia in upper AND lower extremity X=unable to assess due to amputation, fusion, etc 0 8. Sensory-use safety pin. Check grimace or withdrawal if stuporous. Score only stroke- related losses 0=normal 1=mild-mod unilateral loss but patient aware of touch 9or aphasic, confused) 2=total loss, pt unaware of touch. Coma, bilateral loss 0 9. Best Language-describe cookie jar picture, name objects, read sentences. May use repeating, writing, stereognosis 0=normal 1=mild-mod aphasia (diff but partly comprehensible) 2=severe aphasia (almost no info exchanged) 3=mute, global aphasia, coma. No 1 step commands 3 10. Dysarthria-read list of words 0=normal or intubated or other physical barrier 1=mild-mod; slurred but intelligible 2=severe; unintelligible or mute 2 11. Extinction/Neglect- simultaneously touch patient on both hands, show fingers in both visual felton, ask about deficit, left hand 0=normal, none detected. (visual loss alone) 1=neglects or extinguishes to double stimulation in any modality 2=profound neglect in more than one modality 0 Score 9 Was the patient 4.5-9 hrs from last known well or a wake-up stroke? No Was IV tenecteplase given? Yes at OSH Advanced imaging was interpreted at OSH The patient was not a thrombectomy candidate due to no LVO Dysphagia screen: Did Patient Pass The Swallow Screen Part I?: No If "No" Name of Physician Notified: FRANCHESKA Jon Performed by nursing staff and passed or Failed screen by nursing staff and awaiting ST evaluation Health History Medical History: Diagnosis Date • CAD (coronary artery disease) • COPD (chronic obstructive pulmonary disease) ([facility]) • HTN (hypertension) • NSTEMI (non-ST elevated myocardial infarction) ([facility]) • PAD (peripheral artery disease) (HCC) Surgical History: Procedure Laterality Date • HX CORONARY ARTERY BYPASS GRAFT 2011 • CORONARY STENT PLACEMENT 11/18/2022 History reviewed. No pertinent family history. Social History Socioeconomic History • Marital status: Spouse name: Finn • Number of children: 3 Tobacco Use • Smoking status: Former Packs/day: 2 Types: Cigarettes Start date: 1959 Quit date: 11/02/2022 Years since quittin.0 • Smokeless tobacco: Never Vaping Use • Vaping Use: Never used Substance and Sexual Activity • Alcohol use: Never • Drug use: Never • Sexual activity: Not Currently Other Topics Concern • Service No • Blood Transfusions No • Caffeine Concern No • Occupational Exposure No • Hobby Hazards No • Sleep Concern No • Stress Concern No • Weight Concern No • Special Diet No • Back Care No • Exercise No • Bike Helmet No • Seat Belt No • Self-Exams No Medications: PRN Medications: Physical Exam General: awake, following commands HEENT: Normocephalic, Atraumatic, no nasal discharge Lungs: Non-labored breathing, no wheezing Cardiac: no edema, warm extremities Skin: Skin color and texture normal. No rashes or lesions Extended Neuro Exam: Mental status: Awake Speech: Expressive aphasia Normal Abnormal Fluency x Comprehension x Articulation x Repetition x Naming x Cranial Nerves: Normal Abnormal II x III, IV, x V x VII x VIII Right sided facial droop IX, X x XI x XII x Motor: spontaneously moving all extremities. No drift in any extremity Sensation: Normal RUE LUE RLE LLE Light Touch x Pin Prick Temperature Vibration Proprioception Coordination: Normal Abnormal Right Abnormal Left Finger to Nose X though limited Rapid alternating Heel to Cruz x Finger tap Foot tap Lab/Radiology/Other Diagnostic Tests: 24-hour labs: Results for orders placed or performed during the hospital encounter of 11/22/22 (from the past 24 hour(s)) POC GLUCOSE Collection Time: 11/22/22 11:08 PM Result Value Ref Range Glucose, POC 103 (H) 70 - 100 MG/DL IONIZED CALCIUM Collection Time: 11/23/22 1:14 AM Result Value Ref Range Ionized Calcium 1.35 (H) 1.0 - 1.3 MMOL/L CBC AND DIFF Collection Time: 11/23/22 1:14 AM Result Value Ref Range White Blood Cells 15.1 (H) 4.5 - 11.0 K/UL RBC 3.42 (L) 4.0 - 5.0 M/UL Hemoglobin 10.0 (L) 12.0 - 15.0 GM/DL Hematocrit 30.8 (L) 36 - 45 % MCV 90.0 80 - 100 FL MCH 29.4 26 - 34 PG MCHC 32.6 32.0 - 36.0 G/DL RDW 13.4 11 - 15 % Platelet Count 199 150 - 400 K/UL MPV 10.1 7 - 11 FL Neutrophils 90 (H) 41 - 77 % Lymphocytes 5 (L) 24 - 44 % Monocytes 4 4 - 12 % Eosinophils 1 0 - 5 % Basophils 0 0 - 2 % Absolute Neutrophil Count 13.59 (H) 1.8 - 7.0 K/UL Absolute Lymph Count 0.70 (L) 1.0 - 4.8 K/UL Absolute Monocyte Count 0.53 0 - 0.80 K/UL Absolute Eosinophil Count 0.21 0 - 0.45 K/UL Absolute Basophil Count 0.06 0 - 0.20 K/UL POC Glucose (Download): (!) 103 (11/22/220) Pertinent radiology reviewed. Associated attestation - Yanni Morrison MD - 11/23/2022 7:46 PM CDT I personally performed the fofana portions of the E/M visit, reviewed vitals, labs, and pertinent radiological imaging. I have discussed the case and concur with the documentation of the history, physical exam, assessment, and plan of care as outlined below unless otherwise noted. Yanni Morrison MD documented in this encounter Plan of Treatment Pending Results Name Type Priority Associated Diagnoses Date /Time UA FONTAINE TOP TUBE Lab Routine 11/24/19 2:07 AM CDT IR GASTROSTOMY TUBE PLACEMENT Imaging Routine 11/27/2022 5:31 PM CDT Scheduled Orders Name Type Priority Associated Diagnoses Orde r Schedule UA FONTAINE TOP TUBE Lab Routine ONE TIME for 1 Occurrences starting 11/23/2022 until 11/23/2022 IR GASTROSTOMY TUBE PLACEMENT Imaging Routine ONE TIME for 1 Occurrences starting 11/26/2022 until 11/26/2022 EVENT MONITOR Heart Rhythm Management Routine Acute ischemic stroke (HCC) Aphasia due to acute stroke (HCC) Dysphagia, unspecified type Right hemiparesis (HCC) Tissue plasminogen activator (tPA) administered at other facility within 24 hours before current admission Expected: 12/07/2022, Expires: 12/01/2023 documented as of this encounter Goals Goal Patient Goal Type Associated Problems Recent Progress Patient-Stated? Author [facility] On track(11/27/19 23 11:13 AM CDT) No Mando Johns RN documented as of this encounter Procedures Procedure Name Priority Date/Time Associated Diagnosis Comments CT ABD/PELV WO CONTRAST DILEEP 11/30/2022 10:20 AM CDT ECG 12-LEAD STAT 11/30/2022 8:30 AM CDT HIGH SENSITIVITY TROPONIN I 0 HOUR Add on 11/30/2022 7:10 AM CDT CBC Routine 11/30/2022 7:10 AM CDT PHOSPHORUS Routine 11/30/2022 7:10 AM CDT MAGNESIUM Routine 11/30/2022 7:10 AM CDT COMPREHENSIVE METABOLIC PANEL Routine 11/30/2022 7:10 AM CDT ABDOMEN AP/LAT TUBE CHECK W/ CONT Routine 11/29/2022 11:09 AM CDT ABDOMEN 1 VIEW Routine 11/29/2022 8:12 AM CDT HC CBC,AUTOMATED Routine 11/29/2022 5:3 2 AM CDT HC PHOSPHOROUS, SERUM Routine 11/29/2022 5:32 AM CDT HC MAGNESIUM Routine 11/29/2022 5:32 AM CDT HC COMPREHENSIVE METABOLIC PANEL Routine 11/29/2022 5:32 AM CDT CONSULT VASCULAR ACCESS TEAM Routine 11/29/2022 5:15 AM CDT HC IRON BINDING CAPACITY + %SAT Routine 11/28/2022 3:48 PM CDT HC CBC,AUTOMATED Routine 11/28/2022 3:4 8 PM CDT HC PHOSPHOROUS, SERUM Routine 11/28/2022 3:48 PM CDT HC MAGNESIUM Routine 11/28/2022 3:48 PM CDT HC COMPREHENSIVE METABOLIC PANEL Routine 11/28/2022 3:48 PM CDT CONSULT VASCULAR ACCESS TEAM Routine 11/28/2022 3:55 AM CDT CTA NECK WO/W CONT STAT 11/27/2022 1 :40 PM CDT CTA HEAD WO/W CONT STAT 11/27/2022 1 :[address] HEAD WO CONTRAST STAT 11/27/2022 1:30 PM CDT HC CBC W/ AUTOMATED DIFF Routine 11/27/2022 6:08 AM CDT HC PHOSPHOROUS, SERUM Routine 11/27/2022 6:08 AM CDT HC MAGNESIUM Routine 11/27/2022 6:08 AM CDT HC BASIC METABOLIC PANEL Routine 11/27/2022 6:[address] HEAD WO CONTRAST Routine 11/26/2022 1 2:34 PM CDT SWALLOW MOTION SERIES Routine 11/26/2022 9:21 AM CDT HC CBC W/ AUTOMATED DIFF Routine 11/26/2022 5:00 AM CDT HC PHOSPHOROUS, SERUM Routine 11/26/2022 5:00 AM CDT HC MAGNESIUM Routine 11/26/2022 5:00 AM CDT HC BASIC METABOLIC PANEL Routine 11/26/2022 5:00 AM CDT FEEDING TUBE PLCMNT (ABD/CHEST LMTD) Routine 11/25/2022 10:51 PM CDT CLARISSE W/O CONTRAST & W/ 3D ON CART Routine 11/25/2022 1:39 PM CDT HC CBC W/ AUTOMATED DIFF Routine 11/25/2022 2:53 AM CDT HC PHOSPHOROUS, SERUM Routine 11/25/2022 2:53 AM CDT HC MAGNESIUM Routine 11/25/2022 2:53 AM CDT HC BASIC METABOLIC PANEL Routine 11/25/2022 2:53 AM CDT FEEDING TUBE PLCMNT (ABD/CHEST LMTD) Routine 11/24/2022 4:13 AM CDT HC CBC W/ AUTOMATED DIFF Routine 11/24/2022 3:46 AM CDT HC PHOSPHOROUS, SERUM Routine 11/24/2022 3:46 AM CDT HC MAGNESIUM Routine 11/24/2022 3:46 AM CDT HC BASIC [...] 2 HOUR 11/23/2022 5:08 AM CDT HC CBC W/ AUTOMATED DIFF Routine 11/23/2022 5:08 AM CDT HC PHOSPHOROUS, SERUM Routine 11/23/2022 5:08 AM CDT HC MAGNESIUM Routine 11/23/2022 5:08 AM CDT HC COMPREHENSIVE METABOLIC PANEL Routine 11/23/2022 5:08 AM CDT MRI HEAD WO CONTRAST DILEEP 11/23/2022 4:41 AM CDT URINALYSIS MICROSCOPIC REFLEX TO CULTURE Routine 11/23/2022 2:07 AM CDT HC URINALYSIS UAR Routine 11/23/2022 2: 07 AM CDT HC HIGH SENSITIVITY TROPONIN I 0 HOUR 11/23/2022 1:14 AM CDT HC CBC W/ AUTOMATED DIFF STAT 11/23/2022 1:14 AM CDT HC PHOSPHOROUS, SERUM STAT 11/23/2022 1:14 AM CDT HC MAGNESIUM STAT 11/23/2022 1:14 AM CDT HC HEMOGLOBIN A1C STAT 11/23/2022 1: 14 AM CDT HC CALCIUM IONIZED STAT 11/23/2022 1 :14 AM CDT HC LIPID-5:CHOL/TRG/HDL/L DL+VLDL Routine 11/23/2022 1:14 AM CDT COMPREHENSIVE METABOLIC PANEL STAT 11/23/2022 1:14 AM CDT CONSULT VASCULAR ACCESS TEAM Routine [...] CDT TELEMETRY STRIPS-SCAN 11/22/2022 12:00 AM CDT documented in this encounter Results * CT ABD/PELV WO CONTRAST (11/30/2022 [...] 8:50:48 AM Topher Moy MD ECG ORDERABLES GE MUSE * (ABNORMAL) HIGH SENSITIVITY TROPONIN I 0 HOUR (11/30/2022 7:10 AM CDT) hs Troponin I 0 Hour 146(H) <12 ng/L 11/30/2022 8:56 AM CDT [facility] 11/30/2022 7:1 0 AM CDT 11/30/2022 7:11 AM CDT Garrison Tee DO LABORATORY ORDERABLE S Performing Organization Address City/[facility]/ZIP Co de Phone Number [facility] [address] [place] [address], [place] * PHOSPHORUS (11/30/2022 7:10 AM CDT) Phosphorus 2.9 2.0 - 4.5 MG/DL 11/30/2022 7:58 AM CDT [facility] BLOOD / Unknown 11/30/2022 7:10 AM CDT 11/30/2022 7:11 AM CDT Topher Moy MD LABORATORY ORDERABLE S Performing Organization Address City/[facility] Co de Phone Number [facility] [address] [place] [address], [place] * MAGNESIUM (11/30/2022 7:10 AM CDT) Magnesium 1.7 1.6 - 2.6 mg/dL 11/30/2022 7:58 AM CDT [facility] BLOOD / Unknown 11/30/2022 7:10 AM CDT 11/30/2022 7:11 AM CDT Topher Moy MD LABORATORY ORDERABLE S [facility] [address] [place] [address], [place] * (ABNORMAL) COMPREHENSIVE METABOLIC PANEL (11/30/2022 7:10 AM CDT) Sodium 135(L) 137 - 147 MMOL/L 11/30/2022 [...] - 8.0 G/DL 11/30/2022 7:58 AM CDT [facility] DE[facility] PATH AND LAB MEDICINE Total Bilirubin 0.3 0.3 - 1.2 MG/DL 11/30/2022 7:58 AM CDT [facility] DE[facility] PATH AND LAB MEDICINE Albumin 3.3(L) 3.5 - 5.0 G/DL 11/30/2022 7:58 AM CDT [facility] PATH [facility] LAB MEDIC[facility] Alk Phosphatase 67 25 - 110 U/L 11/30/2022 7:58 AM CDT [facility] DE[facility] PATH AND LAB MEDIC[facility] AST (SGOT) 17 7 - 40 U/L 11/30/2022 7:58 AM CDT [facility] DE[facility] PATH AND LAB MEDICINE CO2 34(H) 21 - 30 MMOL/L 11/30/2022 7:58 AM CDT [facility] PATH AND LAB MEDICINE ALT (SGPT) 12 7 - 56 U/L 11/30/2022 7:58 AM CDT [facility] PATH [facility] LAB MEDICINE Anion Gap 7 3 - 12 11/30/2022 7:58 AM CDT [facility] PATH [facility] LAB MEDICINE eGFR >60 >60 mL/min 11/30/2022 7:58 AM CDT [facility] PATH [facility] LAB MEDIC[facility] Comment:eGFR calculated eliz matos the CKD-EPIcr_R equation BLOOD / Unknown 11/30/2022 7:10 AM CDT 11/30/2022 7:11 AM CDT Topher Moy MD LABORATORY ORDERABLE S [facility] DEPT PATH AND LAB MEDICINE [address] [place] [address], * (ABNORMAL) CBC (11/30/2022 7:10 AM CDT) White Blood Cells 7.8 4.5 - 11.0 K/UL 11/30/2022 7:31 AM CDT [facility] DEPT PATH AND LAB MEDICINE RBC 2.76(L) 4.0 - 5.0 M/UL 11/30/2022 7:31 AM CDT [facility] DEPT PATH AND LAB MEDICINE Hemoglobin 8.0(L) 12.0 - 15.0 GM/DL 11/30/2022 7:31 AM CDT [facility] DE[facility] PATH AND LAB MEDICINE Hematocrit 24.9(L) 36 - 45 % 11/30/2022 7:31 AM CDT [facility] DEPT PATH AND LAB MEDICINE MCV 90.1 80 - 100 FL 11/30/2022 7:31 AM CDT [facility] DE[facility] PATH AND LAB MEDICINE MCH 28.9 26 - 34 PG 11/30/2022 7:31 AM CDT [facility] DE[facility] PATH AND LAB MEDICINE MCHC 32.1 32.0 - 36.0 G/DL 11/30/2022 7:31 AM CDT [facility] DE[facility] PATH AND LAB MEDICINE RDW 13.4 11 - 15 % 11/30/2022 7:31 AM CDT [facility] DEPT PATH AND LAB MEDICINE Platelet Count 214 150 - 400 K/UL 11/30/2022 7:31 AM CDT [facility] DEPT PATH AND LAB MEDICINE MPV 10.1 7 - 11 FL 11/30/2022 7:31 AM CDT [facility] DEPT PATH AND LAB MEDICINE BLOOD / Unknown 11/30/2022 7:10 AM CDT 11/30/2022 7:11 AM CDT Topher Moy MD LABORATORY ORDERABLE S [facility] [address] [place] [address], [place] * ABDOMEN AP/LAT TUBE CHECK W/ [...] MONTIEL on 11/29/2022 11:22 AM. Rosita Marcos MOLDING ROOM SUPERVISOR-CAUSTIC PREPARER DIAGNOSTIC AMADOR GING ORDERABLES * ABDOMEN 1 [...] Moy MD DIAGNOSTIC IMAGING O RDERABLES * PHOSPHORUS (11/29/2022 5:32 AM CDT) Phosphorus 2.8 2.0 - 4.5 MG/DL 11/29/2022 6:28 AM CDT [facility] DEPT PATH AND LAB MEDICINE BLOOD / Unknown 11/29/2022 5:32 AM CDT 11/29/2022 5:40 AM CDT Topher Moy MD LABORATORY ORDERABLE S Performing Organization Address City/[facility]/ZIP Co de Phone Number [facility] [address] [place] [address], * MAGNESIUM (11/29/2022 5:32 AM CDT) Magnesium 1.7 1.6 - 2.6 mg/dL 11/29/2022 6:28 AM CDT [facility] DEPT PATH AND LAB MEDICINE BLOOD / Unknown 11/29/2022 5:32 AM CDT 11/29/2022 5:40 AM CDT Topher Moy MD LABORATORY ORDERABLE S [facility] [address] [place] [address], * (ABNORMAL) COMPREHENSIVE METABOLIC PANEL (11/29/2022 5:32 AM CDT) Sodium 140 137 - 147 MMOL/L 11/29/2022 6:28 AM CDT [facility] DEPT PATH AND LAB MEDICINE Potassium 4.0 3.5 - 5.1 MMOL/L 11/29/2022 6:28 AM CDT [facility] DEPT PATH AND LAB MEDICINE Chloride 98 98 - 110 MMOL/L 11/29/2022 6:28 AM CDT [facility] DE[facility] PATH AND LAB MEDICINE Glucose 130(H) 70 - 100 MG/DL 11/29/2022 6:28 AM CDT [facility] DE[facility] PATH AND LAB MEDICINE Blood Urea Nitrogen 25 7 - 25 MG/DL 11/29/2022 6:28 AM CDT [facility] DE[facility] PATH AND LAB MEDICINE Creatinine 0.81 0.4 - 1.00 MG/DL 11/29/2022 6:28 AM CDT [facility] DEPT PATH AND LAB MEDICINE Calcium 10.1 8.5 - 10.6 MG/DL 11/29/2022 6:28 AM CDT [facility] DEPT PATH AND LAB MEDICINE Total Protein 6.1 6.0 - 8.0 G/DL 11/29/2022 6:28 AM CDT [facility] DE[facility] PATH AND LAB MEDICINE Total Bilirubin 0.3 0.3 - 1.2 MG/DL 11/29/2022 6:28 AM CDT [facility] DEPT PATH AND LAB MEDICINE Albumin 3.4(L) 3.5 - 5.0 G/DL 11/29/2022 6:28 AM CDT [facility] DE[facility] PATH AND LAB MEDICINE Alk Phosphatase 69 25 - 110 U/L 11/29/2022 6:28 AM CDT [facility] DEPT PATH AND LAB MEDICINE AST (SGOT) 16 7 - 40 U/L 11/29/2022 6:28 AM CDT [facility] PATH AND LAB MEDICINE CO2 33(H) 21 - 30 MMOL/L 11/29/2022 6:28 AM CDT [facility] DEPT PATH AND LAB MEDICINE ALT (SGPT) 10 7 - 56 U/L 11/29/2022 6:28 AM CDT [facility] PATH AND LAB MEDICINE Anion Gap 9 3 - 12 11/29/2022 6:28 AM CDT [facility] DEPT PATH AND LAB MEDICINE eGFR >60 >60 mL/min 11/29/2022 6:28 AM CDT [facility] PATH [facility] LAB MEDIC[facility] Comment:eGFR calculated usin g the CKD-EPIcr_R equation BLOOD / Unknown 11/29/2022 5:32 AM CDT 11/29/2022 5:40 AM CDT Topher Moy MD LABORATORY ORDERABLE S [facility] [address] [place] [address], * (ABNORMAL) CBC (11/29/2022 5:32 AM CDT) White Blood Cells 9.3 4.5 - 11.0 K/UL 11/29/2022 5:59 AM CDT [facility] DEPT PATH AND LAB MEDICINE RBC 2.78(L) 4.0 - 5.0 M/UL 11/29/2022 5:59 AM CDT [facility] DE[facility] PATH AND LAB MEDICINE Hemoglobin 8.1(L) 12.0 - 15.0 GM/DL 11/29/2022 5:59 AM CDT [facility] DE[facility] PATH AND LAB MEDICINE Hematocrit 25.0(L) 36 - 45 % 11/29/2022 5:59 AM CDT [facility] DEPT PATH AND LAB MEDICINE MCV 89.8 80 - 100 FL 11/29/2022 5:59 AM CDT [facility] DE[facility] PATH AND LAB MEDICINE MCH 29.3 26 - 34 PG 11/29/2022 5:59 AM CDT [facility] DEPT PATH AND LAB MEDICINE MCHC 32.6 32.0 - 36.0 G/DL 11/29/2022 5:59 AM CDT [facility] DEPT PATH AND LAB MEDICINE RDW 13.4 11 - 15 % 11/29/2022 5:59 AM CDT [facility] DEPT PATH AND LAB MEDICINE Platelet Count 216 150 - 400 K/UL 11/29/2022 5:59 AM CDT [facility] DEPT PATH AND LAB MEDICINE MPV 10.0 7 - 11 FL 11/29/2022 5:59 AM CDT [facility] DEPT PATH AND LAB MEDICINE BLOOD / Unknown 11/29/2022 5:32 AM CDT 11/29/2022 5:40 AM CDT Topher Moy MD LABORATORY ORDERABLE S [facility] [address] [place] [address], * PHOSPHORUS (11/28/2022 3:48 PM CDT) Phosphorus 3.2 2.0 - 4.5 MG/DL 11/28/2022 4:46 PM CDT [facility] DEPT PATH AND LAB MEDICINE BLOOD / Unknown 11/28/2022 3:48 PM CDT 11/28/2022 3:57 PM CDT Topher Moy MD LABORATORY ORDERABLE S [facility] MED[facility] [address] [place] [address], * MAGNESIUM (11/28/2022 3:48 PM CDT) Pathologist [facility] Magnesium 1.8 1.6 - 2.6 mg/dL 11/28/2022 4:46 PM CDT [facility] DEPT PATH AND LAB MEDICINE BLOOD / Unknown 11/28/2022 3:48 PM CDT 11/28/2022 3:57 PM CDT Topher Moy MD LABORATORY ORDERABLE S Performing Organization Address [facility]/State/ZIP Co de Phone Number [facility] [address] * (ABNORMAL) COMPREHENSIVE METABOLIC PANEL (11/28/2022 3:48 PM CDT) Sodium 139 137 - 147 MMOL/L 11/28/2022 4:46 PM CDT [facility] DEPT PATH AND LAB MEDICINE Potassium 4.3 3.5 - 5.1 MMOL/L 11/28/2022 4:46 PM CDT [facility] DEPT PATH AND LAB MEDICINE Chloride 97(L) 98 - 110 MMOL/L 11/28/2022 4:46 PM CDT [facility] DEPT PATH AND LAB MEDICINE Glucose 115(H) 70 - 100 MG/DL 11/28/2022 4:46 PM CDT [facility] DEPT PATH AND LAB MEDICINE Blood Urea Nitrogen 26(H) 7 - 25 MG/DL 11/28/2022 4:46 PM CDT [facility] DEPT PATH AND LAB MEDICINE Creatinine 0.89 0.4 - 1.00 MG/DL 11/28/2022 4:46 PM CDT [facility] DEPT PATH AND LAB MEDICINE Calcium 10.2 8.5 - 10.6 MG/DL 11/28/2022 4:46 PM CDT [facility] DEPT PATH AND LAB MEDICINE Total Protein 6.3 6.0 - 8.0 G/DL 11/28/2022 4:46 PM CDT [facility] DEPT PATH AND LAB MEDICINE Total Bilirubin 0.3 0.3 - 1.2 MG/DL 11/28/2022 4:46 PM CDT [facility] DE[facility] PATH AND LAB MEDICINE Albumin 3.6 3.5 - 5.0 G/DL 11/28/2022 4:46 PM CDT [facility] DEPT PATH AND LAB MEDICINE Alk Phosphatase 77 25 - 110 U/L 11/28/2022 4:46 PM CDT [facility] DEPT PATH AND LAB MEDICINE AST (SGOT) 18 7 - 40 U/L 11/28/2022 4:46 PM CDT [facility] DE[facility] PATH AND LAB MEDICINE CO2 32(H) 21 - 30 MMOL/L 11/28/2022 4:46 PM CDT [facility] DEPT PATH AND LAB MEDICINE ALT (SGPT) 10 7 - 56 U/L 11/28/2022 4:46 PM CDT [facility] DE[facility] PATH AND LAB MEDICINE Anion Gap 10 3 - 12 11/28/2022 4:46 PM CDT [facility] DEPT PATH AND LAB MEDICINE eGFR >60 >60 mL/min 11/28/2022 4:46 PM CDT [facility] DEPT PATH AND LAB MEDICINE Comment:eGFR calculated eliz matos the CKD-EPIcr_R equation BLOOD / Unknown 11/28/2022 3:48 PM CDT 11/28/2022 3:57 PM CDT Topher Moy MD LABORATORY ORDERABLE S [facility] DEPT PATH AND LAB MEDICINE [address] [place] [address], [place] * (ABNORMAL) CBC (11/28/2022 3:48 PM CDT) Pathologist [facility] White Blood Cells 8.9 4.5 - 11.0 K/UL 11/28/2022 4:03 PM CDT [facility], [facility] DEPT PATH AND LAB MEDICINE RBC 3.00(L) 4.0 - 5.0 M/UL 11/28/2022 4:03 PM CDT [facility], [facility] DEPT PATH AND LAB MEDICINE Hemoglobin 8.8(L) 12.0 - 15.0 GM/DL 11/28/2022 4:03 PM CDT [facility], [facility] DEPT PATH AND LAB MEDICINE Hematocrit 27.1(L) 36 - 45 % 11/28/2022 4:03 PM CDT [facility], [facility] DEPT PATH AND LAB MEDICINE MCV 90.3 80 - 100 FL 11/28/2022 4:03 PM CDT [facility], [facility] DEPT PATH AND LAB MEDICINE MCH 29.2 26 - 34 PG 11/28/2022 4:03 PM CDT [facility], [facility] DEPT PATH AND LAB MEDICINE MCHC 32.4 32.0 - 36.0 G/DL 11/28/2022 4:03 PM CDT [facility], [facility] DEPT PATH AND LAB MEDICINE RDW 13.4 11 - 15 % 11/28/2022 4:03 PM CDT [facility], [facility] DEPT PATH AND LAB MEDICINE Platelet Count 227 150 - 400 K/UL 11/28/2022 4:03 PM CDT [facility], [facility] DEPT PATH AND LAB MEDICINE MPV 9.9 7 - 11 FL 11/28/2022 4:03 PM CDT [facility] BLOOD / Unknown 11/28/2022 3:48 PM CDT 11/28/2022 3:57 PM CDT Topher Moy MD LABORATORY ORDERABLE S [facility] [address] [place] [address], [place] * (ABNORMAL) IRON + BINDING CAPACITY + %SAT+ FERRITIN (11/28/2022 3:48 PM CDT) [facility] Iron 26(L) 50 - 160 MCG/DL 11/28/2022 4:46 PM CDT [facility] DEPT PATH AND LAB MEDICINE Iron Binding-TIBC 294 270 - 380 MCG/DL 11/28/2022 4:46 PM CDT [facility] DEPT PATH AND LAB MEDICINE % Saturation 9(L) 28 - 42 % 11/28/2022 4:46 PM CDT [facility] DEPT PATH AND LAB MEDICINE Ferritin 123 10 - 200 NG/ML 11/28/2022 4:46 PM CDT [facility] DEPT PATH AND LAB MEDICINE BLOOD / Unknown 11/28/2022 3:48 PM CDT 11/28/2022 3:57 PM CDT Topher Moy MD LABORATORY ORDERABLE S [facility] DEPT PATH AND LAB MEDICINE [address] [place] [address], * CTA NECK WO/W CONT (11/27/2022 1:40 [...] HEAD WO CONTRAST (11/27/2022 1:30 PM CDT) Anatomical Region Laterality Modality Head [...] report Topher Moy MD CT ORDERABLES * PHOSPHORUS (11/27/2022 6:08 AM CDT) Phosphorus 3.1 2.0 - 4.5 MG/DL 11/27/2022 7:15 AM CDT [facility] DEPT PATH AND LAB MEDICINE BLOOD / Unknown 11/27/2022 6:08 AM CDT 11/27/2022 6:09 AM CDT Yanni Morrison MD LABORATORY ORDERABLE S Performing Organization Address City/[facility]/ZIP Co de Phone Number [facility] [address] [place] [address], * MAGNESIUM (11/27/2022 6:08 AM CDT) Magnesium 2.4 1.6 - 2.6 mg/dL 11/27/2022 7:15 AM CDT [facility] DEPT PATH AND LAB MEDICINE BLOOD / Unknown 11/27/2022 6:08 AM CDT 11/27/2022 6:09 AM CDT Yanni Morrison MD LABORATORY ORDERABLE S [facility] [address] [place] [address], * (ABNORMAL) CBC AND DIFF (11/27/2022 6:08 AM CDT) White Blood Cells 8.2 4.5 - 11.0 K/UL 11/27/2022 6:45 AM CDT [facility] RBC 2.95(L) 4.0 [...] CDT Yanni Morrison MD LABORATORY ORDERABLE S [facility] DEPT PATH AND LAB MEDICINE [address] [place] [address], * (ABNORMAL) BASIC METABOLIC PANEL (11/27/2022 6:08 AM CDT) Sodium 137 137 - 147 MMOL/L 11/27/2022 [...] - 100 MG/DL 11/27/2022 7:15 AM CDT [facility] DEPT PATH AND LAB MEDICINE Blood Urea Nitrogen 33(H) 7 - 25 MG/DL 11/27/2022 7:15 AM CDT [facility] DEPT PATH AND LAB MEDICINE Creatinine 1.24(H) 0.4 - 1.00 MG/DL 11/27/2022 7:15 AM CDT [facility] DEPT PATH AND LAB MEDICINE Calcium 9.8 8.5 - 10.6 MG/DL 11/27/2022 7:15 AM CDT [facility] DEPT PATH AND LAB MEDICINE eGFR 45(L) >60 mL/min 11/27/2022 7:15 AM CDT [facility] Comment:eGFR calculated eliz matos the CKD-EPIcr_R equation BLOOD / Unknown 11/27/2022 6:08 AM CDT 11/27/2022 6:09 AM CDT Yanni Morrison MD LABORATORY ORDERABLE S [facility] [address] [place] [address], [place] * CT HEAD WO CONTRAST (11/26/2022 12:34 PM CDT) Anatomical Region Laterality Modality Head Computed Tomogra phy 11/26/2022 1:1 0 PM CDT Impressions 11/26/2022 1:26 PM CDT 1. Evolving small left MCA territory infarct. No evidence of hemorrhagic conversion or significant intracranial mass effect. Additional tiny recent infarcts better demonstrated on comparison MRI. 2. Mild patchy cerebral white matter hypodensities and tiny chronic bilateral basal ganglia lacunar type infarcts, likely sequela of chronic small vessel ischemic change. Finalized by Anabel Subramanian D.O. on 11/26/2022 1:26 PM. Dictated by Anabel Subramanian D.O. on 11/26/2022 1:10 PM. Narrative 11/26/2022 1:26 PM CDT EXAM: CT HEAD HISTORY: 77-year-old female. post-stroke, patient with decreasing alertness. TECHNIQUE: Multiple contiguous axial images were obtained of the brain without intravenous contrast with coronal and sagittal reformats. COMPARISON: MRI brain 11/23/2022. External CT head 11/22/2022. FINDINGS: Evolving recent left MCA territory infarct involving the left precentral and subtle central gyri. No evidence of hemorrhagic conversion. Mild localized mass effect and sulcal effacement. No midline shift or herniation. Additional tiny recent bilateral kramer radiata, right middle frontal gyral and left cerebellar infarcts are better demonstrated on comparison MRI brain. Small chronic bilateral basal ganglia lacunar type infarcts are unchanged. Additional mild [...] visualized right nasal support device. Procedure Note Anabel Subramanian DO - 11/26/2022 EXAM: CT HEAD HISTORY: 77-year-old female. post-stroke, patient with decreasingalertness. TECHNIQUE: Multiple contiguous axial images were obtained of the brainwithout intravenous contrast with coronal and sagittal reformats. COMPARISON: MRI brain 11/23/2022. External CT head 11/22/2022. FINDINGS: Evolving recent left MCA territory infarct involving the left precentraland subtle central gyri. No evidence of hemorrhagic conversion. Mildlocalized mass effect and sulcal effacement. No midline shift orherniation. Additional tiny recent bilateral kramer radiata, right middlefrontal gyral and left cerebellar infarcts are better demonstrated oncomparison MRI brain. Small chronic bilateral basal ganglia lacunar typeinfarcts are unchanged. Additional mild patchy [...] Partially visualizedright nasal support device. IMPRESSION 1. Evolving small left MCA territory infarct. No evidence of hemorrhagicconversion or significant intracranial mass effect. Additional tiny recentinfarcts better demonstrated on comparison MRI. 2. Mild patchy cerebral white matter hypodensities and tiny chronicbilateral basal ganglia lacunar type infarcts, likely sequela of chronicsmall vessel ischemic change. Finalized by Anabel Subramanian D.O. on 11/26/2022 1:26 PM. Dictated byAnabel Subramanian D.O. on 11/26/2022 1:10 PM. Topher Moy MD CT ORDERABLES * SWALLOW MOTION SERIES (11/26/2022 9:21 AM [...] 156 seconds COMPARISON: None Procedure Note Harpreet Yoon, DO - 11/26/2022 SWALLOW MOTION SERIES CLINICAL [...] Marcus Villarreal DO FLUOROSCOPY ORDERABL ES * PHOSPHORUS (11/26/2022 5:00 AM CDT) Phosphorus 2.3 2.0 - 4.5 MG/DL 11/26/2022 6:10 AM CDT [facility] DEPT PATH AND LAB MEDICINE BLOOD / Unknown 11/26/2022 5:00 AM CDT 11/26/2022 5:31 AM CDT Yanni Morrison MD LABORATORY ORDERABLE S [facility] PATH [facility] LAB MEDICINE [address] [place] [address], * MAGNESIUM (11/26/2022 5:00 AM CDT) Magnesium 1.6 1.6 - 2.6 mg/dL 11/26/2022 6:10 AM CDT [facility] PATH [facility] LAB MEDIC[facility] BLOOD / Unknown 11/26/2022 5:00 AM CDT 11/26/2022 5:31 AM CDT Yanni Morrison MD LABORATORY ORDERABLE S [facility] LAB MEDICINE [address] [place] [address], * (ABNORMAL) CBC AND DIFF (11/26/2022 5:00 AM CDT) White Blood Cells 9.0 4.5 - 11.0 K/UL 11/26/2022 5:42 AM CDT [facility] DEPT PATH AND LAB MEDICINE RBC 2.92(L) 4.0 - 5.0 M/UL 11/26/2022 5:42 AM CDT [facility] DEPT PATH AND LAB MEDICINE Hemoglobin 8.7(L) 12.0 - 15.0 GM/DL 11/26/2022 5:42 AM CDT [facility] PATH [facility] LAB MEDICINE Hematocrit 26.9(L) 36 - 45 % 11/26/2022 5:42 AM CDT [facility] DEPT PATH AND LAB MEDICINE MCV 92.1 80 - 100 FL 11/26/2022 5:42 AM CDT [facility] DEPT PATH AND LAB MEDICINE MCH 29.9 26 - 34 PG 11/26/2022 5:42 AM CDT [facility] DEPT PATH AND LAB MEDICINE MCHC 32.4 32.0 - 36.0 G/DL 11/26/2022 5:42 AM CDT [facility] DEPT PATH AND LAB MEDICINE RDW 13.4 11 - 15 % 11/26/2022 5:42 AM CDT [facility] DEPT PATH AND LAB MEDICINE Platelet Count 215 150 - 400 K/UL 11/26/2022 5:42 AM CDT [facility] DEPT PATH AND LAB MEDICINE MPV 9.9 7 - 11 FL 11/26/2022 5:42 AM CDT [facility] DEPT PATH AND LAB MEDICINE Neutrophils 77 41 - 77 % 11/26/2022 5:42 AM CDT [facility] DEPT PATH AND LAB MEDICINE Lymphocytes 11(L) 24 - 44 % 11/26/2022 5:42 AM CDT [facility] DEPT PATH AND LAB MEDICINE Monocytes 9 4 - 12 % 11/26/2022 5:42 AM CDT [facility] DEPT PATH AND LAB MEDICINE Eosinophils 2 0 - 5 % 11/26/2022 5:42 AM CDT [facility] DEPT PATH AND LAB MEDICINE Basophils 1 0 - 2 % 11/26/2022 5:42 AM CDT [facility] DEPT PATH AND LAB MEDICINE Absolute Neutrophil Count 6.99 1.8 - 7.0 K/UL 11/26/2022 5:42 AM CDT [facility] DEPT PATH AND LAB MEDICINE Absolute Lymph Count 1.02 1.0 - 4.8 K/UL 11/26/2022 5:42 AM CDT [facility] DEPT PATH AND LAB MEDICINE Absolute Monocyte Count 0.78 0 - 0.80 K/UL 11/26/2022 5:42 AM CDT [facility] DEPT PATH AND LAB MEDICINE Absolute Eosinophil Count 0.20 0 - 0.45 K/UL 11/26/2022 5:42 AM CDT [facility] DEPT PATH AND LAB MEDICINE Absolute Basophil Count 0.04 0 - 0.20 K/UL 11/26/2022 5:42 AM CDT [facility] DEPT PATH AND LAB MEDICINE BLOOD / Unknown 11/26/2022 5:00 AM CDT 11/26/2022 5:31 AM CDT Yanni Morrison MD LABORATORY ORDERABLE S [facility] DEPT PATH AND LAB MEDICINE [address] [place] [address], * (ABNORMAL) BASIC METABOLIC PANEL (11/26/2022 5:00 AM CDT) Sodium 140 137 - 147 MMOL/L 11/26/2022 6:10 AM CDT [facility] DEPT PATH AND LAB MEDICINE Potassium 4.3 3.5 - 5.1 MMOL/L 11/26/2022 6:10 AM CDT [facility] DEPT PATH AND LAB MEDICINE Chloride 103 98 - 110 MMOL/L 11/26/2022 6:10 AM CDT [facility] DEPT PATH AND LAB MEDICINE CO2 26 21 - 30 MMOL/L 11/26/2022 6:10 AM CDT [facility] DEPT PATH AND LAB MEDICINE Anion Gap 11 3 - 12 11/26/2022 6:10 AM CDT [facility] DEPT PATH AND LAB MEDICINE Glucose 124(H) 70 - 100 MG/DL 11/26/2022 6:10 AM CDT [facility] DEPT PATH AND LAB MEDICINE Blood Urea Nitrogen 24 7 - 25 MG/DL 11/26/2022 6:10 AM CDT [facility] DEPT PATH AND LAB MEDICINE Creatinine 0.74 0.4 - 1.00 MG/DL 11/26/2022 6:10 AM CDT [facility] DEPT PATH AND LAB MEDICINE Calcium 10.0 8.5 - 10.6 MG/DL 11/26/2022 6:10 AM CDT [facility] DEPT PATH AND LAB MEDICINE eGFR >60 >60 mL/min 11/26/2022 6:10 AM CDT [facility] DEPT PATH AND LAB MEDICINE Comment:eGFR calculated eliz matos the CKD-EPIcr_R equation BLOOD / Unknown 11/26/2022 5:00 AM CDT 11/26/2022 5:31 AM CDT Yanni Morrison MD LABORATORY ORDERABLE S [facility] DEPT PATH AND LAB MEDICINE [address] [place] [address], * FEEDING TUBE PLCMNT (ABD/CHEST LMTD) (11/25/2022 10:51 PM CDT) Anatomical Region Laterality Modality CHEST, Abdomen Computed Radiogr aphy 11/26/2022 9:1 4 AM CDT Impressions 11/26/2022 9:19 AM CDT Findings/impression: The lower thorax and abdomen are included in the [id number]. There has been interval advancement of the [...] thorax and abdomen are included in the ldojw-[id number]-cabq. There hasbeen interval advancement of the nasoenteric [...] m2 OTHER OUTSIDE LAB CV ECHO PV MICROSTRATEGY DEVELOPER JONELLE Farfan. Anesthesia Team OTHER OUTSIDE LAB [...] aorta. Marcus Villarreal DO ECHO ORDERABLES * PHOSPHORUS (11/25/2022 2:53 AM CDT) Phosphorus 3.2 2.0 - 4.5 MG/DL 11/25/2022 3:34 AM CDT [facility] DEPT PATH AND LAB MEDICINE BLOOD / Unknown 11/25/2022 2:53 AM CDT 11/25/2022 3:00 AM CDT Yanni Morrison MD LABORATORY ORDERABLE S [facility] MEDIC[facility] [address] [place] [address], * MAGNESIUM (11/25/2022 2:53 AM CDT) Magnesium 1.8 1.6 - 2.6 mg/dL 11/25/2022 3:34 AM CDT [facility] DEPT PATH AND LAB MEDICINE BLOOD / Unknown 11/25/2022 2:53 AM CDT 11/25/2022 3:00 AM CDT Yanni Morrison MD LABORATORY ORDERABLE S Performing Organization Address City/[facility]/ZIP Co de Phone Number [facility] [address] [place] [address], * (ABNORMAL) CBC AND DIFF (11/25/2022 2:53 AM CDT) White Blood Cells 8.3 4.5 - 11.0 K/UL 11/25/2022 3:10 AM CDT [facility] DEPT PATH AND LAB MEDICINE RBC 3.19(L) 4.0 - 5.0 M/UL 11/25/2022 3:10 AM CDT [facility] DEPT PATH AND LAB MEDICINE Hemoglobin 9.4(L) 12.0 - 15.0 GM/DL 11/25/2022 3:10 AM CDT [facility] DEPT PATH AND LAB MEDICINE Hematocrit 28.9(L) 36 - 45 % 11/25/2022 3:10 AM CDT [facility] DEPT PATH AND LAB MEDICINE MCV 90.7 80 - 100 FL 11/25/2022 3:10 AM CDT [facility] DEPT PATH AND LAB MEDICINE MCH 29.4 26 - 34 PG 11/25/2022 3:10 AM CDT [facility] DEPT PATH AND LAB MEDICINE MCHC 32.4 32.0 - 36.0 G/DL 11/25/2022 3:10 AM CDT [facility] DEPT PATH AND LAB MEDICINE RDW 13.4 11 - 15 % 11/25/2022 3:10 AM CDT [facility] DEPT PATH AND LAB MEDICINE Platelet Count 223 150 - 400 K/UL 11/25/2022 3:10 AM CDT [facility] DEPT PATH AND LAB MEDICINE MPV 9.7 7 - 11 FL 11/25/2022 3:10 AM CDT [facility] DEPT PATH AND LAB MEDICINE Neutrophils 65 41 - 77 % 11/25/2022 3:10 AM CDT [facility] DEPT PATH AND LAB MEDICINE Lymphocytes 19(L) 24 - 44 % 11/25/2022 3:10 AM CDT [facility] DEPT PATH AND LAB MEDICINE Monocytes 12 4 - 12 % 11/25/2022 3:10 AM CDT [facility] DEPT PATH AND LAB MEDICINE Eosinophils 3 0 - 5 % 11/25/2022 3:10 AM CDT [facility] DEPT PATH AND LAB MEDICINE Basophils 1 0 - 2 % 11/25/2022 3:10 AM CDT [facility] DEPT PATH AND LAB MEDICINE Absolute Neutrophil Count 5.38 1.8 - 7.0 K/UL 11/25/2022 3:10 AM CDT [facility] DEPT PATH AND LAB MEDICINE Absolute Lymph Count 1.56 1.0 - 4.8 K/UL 11/25/2022 3:10 AM CDT [facility] DEPT PATH AND LAB MEDICINE Absolute Monocyte Count 1.03(H) 0 - 0.80 K/UL 11/25/2022 3:10 AM CDT [facility] DEPT PATH AND LAB MEDICINE Absolute Eosinophil Count 0.26 0 - 0.45 K/UL 11/25/2022 3:10 AM CDT [facility] DEPT PATH AND LAB MEDICINE Absolute Basophil Count 0.06 0 - 0.20 K/UL 11/25/2022 3:10 AM CDT [facility] DEPT PATH AND LAB MEDICINE BLOOD / Unknown 11/25/2022 2:53 AM CDT 11/25/2022 3:00 AM CDT Yanni Morrison MD LABORATORY ORDERABLE S [facility] DEPT PATH AND LAB MEDICINE [address] [place] [address], [place] * (ABNORMAL) BASIC METABOLIC PANEL (11/25/2022 2:53 AM CDT) Sodium 141 137 - 147 MMOL/L 11/25/2022 3:34 AM CDT [facility] DEPT PATH AND LAB MEDICINE Potassium 4.4 3.5 - 5.1 MMOL/L 11/25/2022 3:34 AM CDT [facility] DEPT PATH AND LAB MEDICINE Chloride 104 98 - 110 MMOL/L 11/25/2022 3:34 AM CDT [facility] DEPT PATH AND LAB MEDICINE CO2 31(H) 21 - 30 MMOL/L 11/25/2022 3:34 AM CDT [facility] DEPT PATH AND LAB MEDICINE Anion Gap 6 3 - 12 11/25/2022 3:34 AM CDT [facility] DEPT PATH AND LAB MEDICINE Glucose 103(H) 70 - 100 MG/DL 11/25/2022 3:34 AM CDT [facility] DEPT PATH AND LAB MEDICINE Blood Urea Nitrogen 25 7 - 25 MG/DL 11/25/2022 3:34 AM CDT [facility] DEPT PATH AND LAB MEDICINE Creatinine 0.85 0.4 - 1.00 MG/DL 11/25/2022 3:34 AM CDT [facility] DEPT PATH AND LAB MEDICINE Calcium 10.5 8.5 - 10.6 MG/DL 11/25/2022 3:34 AM CDT [facility] DEPT PATH AND LAB MEDICINE eGFR >60 >60 mL/min 11/25/2022 3:34 AM CDT [facility] DEPT PATH AND LAB MEDICINE Comment:eGFR calculated eliz matos the CKD-EPIcr_R equation BLOOD / Unknown 11/25/2022 2:53 AM CDT 11/25/2022 3:00 AM CDT Yanni Morrison MD LABORATORY ORDERABLE S [facility] [address] [place] [address], [place] * FEEDING TUBE PLCMNT (ABD/CHEST LMTD) (11/24/2022 4:13 AM CDT) Anatomical Region Laterality Modality CHEST, Abdomen Computed Radiogr aphy 11/24/2022 8:2 2 AM CDT Impressions 11/24/2022 9:04 AM CDT Enteric tube as above. Consider advancement for postpyloric positioning. By my electronic signature, I attest that I have personally reviewed the images for this examination and formulated the interpretations and opinions expressed in this report Finalized by Harpreet Yoon D.O. on 11/24/2022 9:04 AM. Dictated by Christian Bundy M.D. on 11/24/2022 8:22 AM. Narrative 11/24/2022 9:04 AM CDT FEEDING TUBE PLCMNT (ABD/CHEST LMTD) Reason for exam/History: Corpak placement. Comparison: Abdominal radiograph 11/23/2022. Findings: Single upright frontal image of the low chest/upper abdomen. The lower abdomen and pelvis are excluded from the [id number]. Sternotomy wires. Enteric tube tip overlies the region of the distal stomach. Stylette remains in place. No dilated loops of bowel are visualized. Procedure Note Harpreet Yoon, DO - 11/24/2022 FEEDING TUBE PLCMNT (ABD/CHEST LMTD) Reason for exam/History: Corpak placement. Comparison: Abdominal radiograph 11/23/2022. Findings: Single upright frontal image of the low chest/upper abdomen. The lowerabdomen and pelvis are excluded from the [id number]. Sternotomy wires. Enteric tube tip overlies the region of the distalstomach. Stylette remains in place. No dilated loops of bowel are visualized. IMPRESSION Enteric tube as above. Consider advancement for postpyloric positioning. By my electronic signature, I attest that I have personally reviewed theimages for this examination and formulated the interpretations andopinions expressed in this report Finalized by Harpreet Yoon D.O. on 11/24/2022 9:04 AM. Dictated by Sona Neves on 11/24/2022 8:22 AM. Dontrell Bender MOLDING ROOM SUPERVISOR-[employer] PREPARER DIAGNOSTIC IMAGING ORDERABLES * PHOSPHORUS (11/24/2022 3:46 AM CDT) Phosphorus 3.1 2.0 - 4.5 MG/DL 11/24/2022 5:05 AM CDT [facility] PATH [facility] LAB MEDIC[facility] BLOOD / Unknown 11/24/2022 3:46 AM CDT 11/24/2022 4:20 AM CDT Yanni oMrrison MD LABORATORY ORDERABLE S [facility] PATH [facility] LAB MEDICINE [address] * MAGNESIUM (11/24/2022 3:46 AM CDT) Magnesium 1.8 1.6 - 2.6 mg/dL 11/24/2022 5:05 AM CDT [facility] PATH [facility] LAB MEDIC[facility] BLOOD / Unknown 11/24/2022 3:46 AM CDT 11/24/2022 4:20 AM CDT Yanni Morrison MD LABORATORY ORDERABLE S Performing Organization Address City/[facility]/ZIP Co de Phone Number [facility] [address] * (ABNORMAL) CBC AND DIFF (11/24/2022 3:46 AM CDT) White Blood Cells 10.4 4.5 - 11.0 K/UL 11/24/2022 4:39 AM CDT [facility] DEPT PATH AND LAB MEDICINE RBC 3.27(L) 4.0 - 5.0 M/UL 11/24/2022 4:39 AM CDT [facility] DEPT PATH AND LAB MEDICINE Hemoglobin 9.7(L) 12.0 - 15.0 GM/DL 11/24/2022 4:39 AM CDT [facility] DEPT PATH AND LAB MEDICINE Hematocrit 29.8(L) 36 - 45 % 11/24/2022 4:39 AM CDT [facility] LAB MEDIC[facility] MCV 90.9 80 - 100 FL 11/24/2022 4:39 AM CDT [facility] DEPT PATH AND LAB MEDICINE MCH 29.5 26 - 34 PG 11/24/2022 4:39 AM CDT [facility] DEPT PATH AND LAB MEDICINE MCHC 32.4 32.0 - 36.0 G/DL 11/24/2022 4:39 AM CDT [facility] DEPT PATH AND LAB MEDICINE RDW 13.4 11 - 15 % 11/24/2022 4:39 AM CDT [facility] DEPT PATH AND LAB MEDICINE Platelet Count 223 150 - 400 K/UL 11/24/2022 4:39 AM CDT [facility] DEPT PATH AND LAB MEDICINE MPV 10.3 7 - 11 FL 11/24/2022 4:39 AM CDT [facility] DEPT PATH AND LAB MEDICINE Neutrophils 75 41 - 77 % 11/24/2022 4:39 AM CDT [facility] DEPT PATH AND LAB MEDICINE Lymphocytes 13(L) 24 - 44 % 11/24/2022 4:39 AM CDT [facility] DEPT PATH AND LAB MEDICINE Monocytes 11 4 - 12 % 11/24/2022 4:39 AM CDT [facility] DEPT PATH AND LAB MEDICINE Eosinophils 0 0 - 5 % 11/24/2022 4:39 AM CDT [facility] DEPT PATH AND LAB MEDICINE Basophils 1 0 - 2 % 11/24/2022 4:39 AM CDT [facility] DEPT PATH AND LAB MEDICINE Absolute Neutrophil Count 7.79(H) 1.8 - 7.0 K/UL 11/24/2022 4:39 AM CDT [facility] DEPT PATH AND LAB MEDICINE Absolute Lymph Count 1.38 1.0 - 4.8 K/UL 11/24/2022 4:39 AM CDT [facility] DEPT PATH AND LAB MEDICINE Absolute Monocyte Count 1.11(H) 0 - 0.80 K/UL 11/24/2022 4:39 AM CDT [facility] DEPT PATH AND LAB MEDICINE Absolute Eosinophil Count 0.03 0 - 0.45 K/UL 11/24/2022 4:39 AM CDT [facility] DEPT PATH AND LAB MEDICINE Absolute Basophil Count 0.05 0 - 0.20 K/UL 11/24/2022 4:39 AM CDT [facility] DEPT PATH AND LAB MEDICINE BLOOD / Unknown 11/24/2022 3:46 AM CDT 11/24/2022 4:20 AM CDT Yanni Morrison MD LABORATORY ORDERABLE S [facility] DEPT PATH AND LAB MEDICINE [address] [place] [address], [place] * (ABNORMAL) BASIC METABOLIC PANEL (11/24/2022 3:46 AM CDT) Sodium 139 137 - 147 MMOL/L 11/24/2022 5:05 AM CDT [facility] DEPT PATH AND LAB MEDICINE Potassium 4.2 3.5 - 5.1 MMOL/L 11/24/2022 5:05 AM CDT [facility] DEPT PATH AND LAB MEDICINE Chloride 104 98 - 110 MMOL/L 11/24/2022 5:05 AM CDT [facility] DEPT PATH AND LAB MEDICINE CO2 24 21 - 30 MMOL/L 11/24/2022 5:05 AM CDT [facility] DEPT PATH AND LAB MEDICINE Anion Gap 11 3 - 12 11/24/2022 5:05 AM CDT [facility] DEPT PATH AND LAB MEDICINE Glucose 120(H) 70 - 100 MG/DL 11/24/2022 5:05 AM CDT [facility] DEPT PATH AND LAB MEDICINE Blood Urea Nitrogen 23 7 - 25 MG/DL 11/24/2022 5:05 AM CDT [facility] DEPT PATH AND LAB MEDICINE Creatinine 0.96 0.4 - 1.00 MG/DL 11/24/2022 5:05 AM CDT [facility] DEPT PATH AND LAB MEDICINE Calcium 10.0 8.5 - 10.6 MG/DL 11/24/2022 5:05 AM CDT [facility] DEPT PATH AND LAB MEDICINE eGFR >60 >60 mL/min 11/24/2022 5:05 AM CDT [facility] DEPT PATH AND LAB MEDICINE Comment:eGFR calculated eliz matos the CKD-EPIcr_R equation BLOOD / Unknown 11/24/2022 3:46 AM CDT 11/24/2022 4:20 AM CDT Yanni Morrison MD LABORATORY ORDERABLE S [facility] DEPT PATH AND LAB MEDICINE [address] [place] [id number], * FEEDING TUBE PLCMNT (ABD/CHEST LMTD) (11/23/2022 11:34 AM CDT) Anatomical Region Laterality Modality CHEST, Abdomen Computed Radiogr aphy 11/23/2022 11:4 1 AM CDT Impressions 11/23/2022 11:42 AM CDT Findings/impression: Single AP projection of the lower chest and upper abdomen was obtained. Portions of the left lower chest and abdomen were not included within the [id number]. Indwelling enteric tube with the distal tip terminating over the stomach. Prior median sternotomy and CABG. No gas distended loops of bowel within the visualized abdomen. Finalized by Kat Navarro M.D. on 11/23/2022 11:42 AM. Dictated by Kat Navarro M.D. on 11/23/2022 11:41 AM. Narrative 11/23/2022 11:42 AM CDT Procedure: FEEDING TUBE PLCMNT (ABD/CHEST LMTD) Clinical Indication: Post feeding tube placement Comparison: No prior studies are available for comparison. Procedure Note Kat Navarro MD - 11/23/2022 Procedure: FEEDING TUBE PLCMNT (ABD/CHEST LMTD) Clinical Indication: Post feeding tube placement Comparison: No prior studies are available for comparison. IMPRESSION Findings/impression: Single AP projection of the lower chest and upper abdomen was obtained.Portions of the left lower chest and abdomen were not included within [id number]. Indwelling enteric tube with the distal tip terminating over thestomach. Prior median sternotomy and CABG. No gas distended loops of bowel withinthe visualized abdomen. Finalized by Kat Navarro M.D. on 11/23/2022 11:42 AM. Dictated byKat Navarro M.D. on 11/23/2022 11:41 AM. Elizabeth Silverman APRN-[facility] DIAGNOSTIC IMAG ING ORDERABLES * ECG 12-LEAD (11/23/2022 10:54 AM [...] Bledsoe (63) on 11/23/2022 8:07:57 PM Dontrell FAROOQ ECG ORDERAB LES GE MUSE * (ABNORMAL) HIGH SENSITIVITY TROPONIN I 4 HR (11/23/2022 9:05 AM CDT) hs Troponin I 4 Hour 649(H) <12 ng/L 11/23/2022 10:22 AM CDT [facility] BLOOD / Unknown 11/23/2022 9:05 AM CDT 11/23/2022 9:13 AM CDT Dontrell Bender APRN-[employer] LABORATORY ORDERABLES [facility] [address] [facility] [place], [place] [address], [place] * 2D + DOPPLER ECHO W/ CONTRAST (11/23/2022 8:06 AM CDT) Pathologist [facility] Left Ventricle Diastolic Volume 159.00 46 [...] LAB ECHO EF 50 % OTHER OUTS [facility] LAB SHEARER'S BIPLANE EF 49 % OTHER [...] was suboptimal-there is no evidence of intracardiac [id number] shunting Left Ventricle The left ventricle is [...] 790(H) <12 ng/L 11/23/2022 6:09 AM CDT [facility] 11/23/2022 5:0 8 AM CDT 11/23/2022 5:25 AM CDT Silvana Faust DO LABORATORY ORDERABLE S [facility] [address] [place] [address], * PHOSPHORUS (11/23/2022 5:08 AM CDT) Phosphorus 3.5 2.0 - 4.5 MG/DL 11/23/2022 6:08 AM CDT [facility] BLOOD / Unknown 11/23/2022 5:08 AM CDT 11/23/2022 5:25 AM CDT Yanni Morrison MD LABORATORY ORDERABLE S Performing Organization Address City/[facility]/ZIP Co de Phone Number [facility] PATH AND LAB MEDICINE [address] [place] [address], * MAGNESIUM (11/23/2022 5:08 AM CDT) Magnesium 1.8 1.6 - 2.6 mg/dL 11/23/2022 6:08 AM CDT [facility] Comment:SLT HEMOLYSIS BLOOD / Unknown 11/23/2022 5:08 AM CDT 11/23/2022 5:25 AM CDT Yanni Morrison MD LABORATORY ORDERABLE S [facility] DEPT PATH AND LAB MEDICINE [address] [place] [address], * (ABNORMAL) CBC AND DIFF (11/23/2022 5:08 AM CDT) White Blood Cells 12.6(H) 4.5 - 11.0 K/UL 11/23/2022 5:41 AM CDT [facility] DEPT PATH AND LAB MEDICINE RBC 3.54(L) 4.0 - 5.0 M/UL 11/23/2022 5:41 AM CDT [facility] DE[facility] PATH AND LAB MEDICINE Hemoglobin 10.2(L) 12.0 - 15.0 GM/DL 11/23/2022 5:41 AM CDT [facility] DE[facility] PATH [facility] LAB MEDICINE Hematocrit 31.9(L) 36 - 45 % 11/23/2022 5:41 AM CDT [facility] DE[facility] PATH AND LAB MEDICINE MCV 89.9 80 - 100 FL 11/23/2022 5:41 AM CDT [facility] DE[facility] PATH AND LAB MEDICINE MCH 28.8 26 - 34 PG 11/23/2022 5:41 AM CDT [facility] DE[facility] PATH AND LAB MEDICINE MCHC 32.1 32.0 - 36.0 G/DL 11/23/2022 5:41 AM CDT [facility] DE[facility] PATH [facility] LAB MEDICINE RDW 13.7 11 - 15 % 11/23/2022 5:41 AM CDT [facility] DE[facility] PATH AND LAB MEDICINE Platelet Count 230 150 - 400 K/UL 11/23/2022 5:41 AM CDT [facility] DE[facility] PATH AND LAB MEDICINE MPV 10.4 7 - 11 FL 11/23/2022 5:41 AM CDT [facility] PATH [facility] LAB MEDICINE Neutrophils 95(H) 41 - 77 % 11/23/2022 6:47 AM CDT [facility] PATH [facility] LAB MEDICINE Lymphocytes 3(L) 24 - 44 % 11/23/2022 6:47 AM CDT [facility] PATH [facility] LAB MEDICINE Monocytes 1(L) 4 - 12 % 11/23/2022 6:47 AM CDT [facility] DE[facility] PATH AND LAB MEDICINE Eosinophils 0 0 - 5 % 11/23/2022 6:47 AM CDT [facility] DE[facility] PATH AND LAB MEDICINE Basophils 1 0 - 2 % 11/23/2022 6:47 AM CDT [facility] DEPT PATH AND LAB MEDICINE Absolute Neutrophil Count 13.07(H) 1.8 - 7.0 K/UL 11/23/2022 6:47 AM CDT [facility] DEPT PATH AND LAB MEDICINE Absolute Lymph Count 0.44(L) 1.0 - 4.8 K/UL 11/23/2022 6:47 AM CDT [facility] DEPT PATH AND LAB MEDICINE Absolute Monocyte Count 0.17 0 - 0.80 K/UL 11/23/2022 6:47 AM CDT [facility] DEPT PATH AND LAB MEDICINE Absolute Eosinophil Count 0.02 0 - 0.45 K/UL 11/23/2022 6:47 AM CDT [facility] DEPT PATH AND LAB MEDICINE Absolute Basophil Count 0.07 0 - 0.20 K/UL 11/23/2022 6:47 AM CDT [facility] DEPT PATH AND LAB MEDICINE BLOOD / Unknown 11/23/2022 5:08 AM CDT 11/23/2022 5:25 AM CDT Yanni Morrison MD LABORATORY ORDERABLE S [facility] DEPT PATH AND LAB MEDICINE [address] [place], [place] [address] * (ABNORMAL) BASIC METABOLIC PANEL (11/23/2022 5:08 AM CDT) Sodium 136(L) 137 - 147 MMOL/L 11/23/2022 6:08 AM CDT [facility] DEPT PATH AND LAB MEDICINE Potassium 5.0 3.5 - 5.1 MMOL/L 11/23/2022 6:08 AM CDT [facility] DEPT PATH AND LAB MEDICINE Comment:SLT HEMOLYSIS Chloride 100 98 - 110 MMOL/L 11/23/2022 6:08 AM CDT [facility] DEPT PATH AND LAB MEDICINE CO2 23 21 - 30 MMOL/L 11/23/2022 6:08 AM CDT [facility] DEPT PATH AND LAB MEDICINE Anion Gap 13(H) 3 - 12 11/23/2022 6:08 AM CDT [facility] DEPT PATH AND LAB MEDICINE Glucose 100 70 - 100 MG/DL 11/23/2022 6:08 AM CDT [facility] PATH [facility] LAB MEDIC[facility] Blood Urea Nitrogen 18 7 - 25 MG/DL 11/23/2022 6:08 AM CDT [facility] DEPT PATH AND LAB MEDICINE Creatinine 0.88 0.4 - 1.00 MG/DL 11/23/2022 6:08 AM CDT [facility] PATH [facility] LAB MEDICINE Calcium 10.4 8.5 - 10.6 MG/DL 11/23/2022 6:08 AM CDT [facility] DEPT PATH AND LAB MEDICINE eGFR >60 >60 mL/min 11/23/2022 6:08 AM CDT [facility] DEPT PATH AND LAB MEDICINE Comment:eGFR calculated eliz matos the CKD-EPIcr_R equation BLOOD / Unknown 11/23/2022 5:08 AM CDT 11/23/2022 5:25 AM CDT Yanni Morrison MD LABORATORY ORDERABLE S [facility] PATH [facility] LAB MEDICINE [address] [place] [address], [place] * MRI HEAD WO CONTRAST (11/23/2022 4:41 [...] - 2 /HPF 11/23/2022 4:34 AM CDT [facility] DEPT PATH AND LAB MEDICINE RBCs,UA 0-2 0 - 3 /HPF 11/23/2022 4:34 AM CDT [facility] DEPT PATH AND LAB MEDICINE Comment,UA Criteria for reflex to culture are WBC>10, Positive Nitrite, and/or >=+1 leukocytes. If quantity is not sufficient, an addendum will follow. 11/23/2022 4:34 AM CDT [facility] DEPT PATH AND LAB MEDICINE UA Reflex Specimen Type and Source URINE CATHETER, IN AND OUT 11/23/2022 1:19 AM CDT [facility] DEPT PATH AND LAB MEDICINE MucousUA TRACE 11/23/2022 4:34 AM CDT [facility] DEPT PATH AND LAB MEDICINE Urine (Catheter, In and Out) 11/23/2022 2:07 AM CDT 11/23/2022 2:25 AM CDT Dontrell Bender MOLDING ROOM SUPERVISOR-CAUSTIC PREPARER URINE ORDER OTILIA [facility] DEPT PATH AND LAB MEDICINE [address] [place] [address], [place] * (ABNORMAL) URINALYSIS DIPSTICK REFLEX TO CULTURE (11/23/2022 2:07 AM CDT) Color,UA STRAW 11/23/2022 4:34 AM CDT [facility] DEPT PATH AND LAB MEDICINE Turbidity,UA CLEAR CLEAR-TIFFANY R 11/23/2022 4:34 AM CDT [facility] DEPT PATH AND LAB MEDICINE Specific [place]-Urine >1.050(H) 1.005 - 1.030 11/23/2022 4:34 AM CDT [facility] DEPT PATH AND LAB MEDICINE Comment:NOTE NEW REFERENCE R TANISHA pH,UA 6.0 5.0 - 8.0 11/23/2022 4:34 AM CDT [facility] DEPT PATH AND LAB MEDICINE Protein,UA 1+(A) NEG-NEG 11/23/2022 4:34 AM CDT [facility] DEPT PATH AND LAB MEDICINE Glucose,UA NEG NEG-NEG 11/23/2022 4:34 AM CDT [facility] DEPT PATH AND LAB MEDICINE Ketones,UA TRACE(A) NEG-NEG 11/23/2022 4:34 AM CDT [facility] DEPT PATH AND LAB MEDICINE Bilirubin,UA NEG NEG-NEG 11/23/2022 4:34 AM CDT [facility] DEPT PATH AND LAB MEDICINE Blood,UA NEG NEG-NEG 11/23/2022 4:34 AM CDT [facility] DEPT PATH AND LAB MEDICINE Urobilinogen,U A NORMAL NORM-TANYA L 11/23/2022 4:34 AM CDT [facility] DEPT PATH AND LAB MEDICINE Nitrite,UA NEG NEG-NEG 11/23/2022 4:34 AM CDT [facility] DEPT PATH AND LAB MEDICINE Leukocytes,UA NEG NEG-NEG 11/23/2022 4:34 AM CDT [facility] DEPT PATH AND LAB MEDICINE Urine Ascorbic Acid, UA NEG NEG-NEG 11/23/2022 4:34 AM CDT [facility] PATH [facility] LAB MEDICINE URINE SPECIMEN / Unknown 11/23/2022 2:07 AM CDT 11/23/2022 2:25 AM CDT Dontrell Bender MOLDING ROOM SUPERVISOR-CAUSTIC PREPARER URINE ORDER OTILIA [facility] PATH [facility] LAB MEDICINE [address] [place] [address], * (ABNORMAL) HIGH SENSITIVITY TROPONIN I 0 HOUR (11/23/2022 1:14 AM CDT) hs Troponin I 0 Hour 1,437(H) <12 ng/L 11/23/2022 2:19 AM CDT [facility] DEPT PATH AND LAB MEDICINE 11/23/2022 1:1 4 AM CDT 11/23/2022 1:43 AM CDT Silvana Faust DO LABORATORY ORDERABLE S Performing Organization Address City/[facility]/ZIP Co de Phone Number [facility] PATH [facility] LAB MEDICINE [address] [place] [address], [place] * (ABNORMAL) IONIZED CALCIUM (11/23/2022 1:14 AM CDT) Ionized Calcium 1.35(H) 1.0 - 1.3 MMOL/L 11/23/2022 2:03 AM CDT [facility] BLOOD / Unknown 11/23/2022 1:14 AM CDT 11/23/2022 2:00 AM CDT Dontrell Bender MOLDING ROOM SUPERVISOR-CAUSTIC PREPARER LABORATORY ORDERABLES [facility] PATH [facility] LAB MEDICINE [address] [place] [address], [place] * (ABNORMAL) LIPID PROFILE (11/23/2022 1:14 AM CDT) Cholesterol 145 <200 MG/DL 11/23/2022 2:18 AM CDT [facility] DEPT PATH AND LAB MEDICINE Triglycerides 111 <150 MG/DL 11/23/2022 2:18 AM CDT [facility] DEPT PATH AND LAB MEDICINE HDL 38(L) >40 MG/DL 11/23/2022 2:18 AM CDT [facility] DEPT PATH AND LAB MEDICINE LDL 89 <100 mg/dL 11/23/2022 2:18 AM CDT [facility] DEPT PATH AND LAB MEDICINE VLDL 22 MG/DL 11/23/2022 2:18 AM CDT [facility] DEPT PATH AND LAB MEDICINE Non HDL Cholesterol 107 MG/DL 11/23/2022 2:18 AM CDT [facility] PATH [facility] LAB MEDICINE Comment: Calculated non-HDL Cholesterol (non-HDL-C) indirectly measures LDL-C, Lp(a), IDL-C, and VLDL-C. It is a surrogate marker for Apoprotein B. Goal should be less than 130 mg/dL. BLOOD / Unknown 11/23/2022 1:14 AM CDT 11/23/2022 1:43 AM CDT Yanni Morrison MD LABORATORY ORDERABLE S [facility] PATH AND LAB MEDICINE [address] [place] [address], * PHOSPHORUS (11/23/2022 1:14 AM CDT) Phosphorus 3.4 2.0 - 4.5 MG/DL 11/23/2022 2:18 AM CDT [facility] PATH AND LAB MEDICINE BLOOD / Unknown 11/23/2022 1:14 AM CDT 11/23/2022 1:43 AM CDT Yanni Morrison MD LABORATORY ORDERABLE S [facility] PATH AND LAB MEDICINE [address] [place] [address], * MAGNESIUM (11/23/2022 1:14 AM CDT) Magnesium 1.9 1.6 - 2.6 mg/dL 11/23/2022 2:18 AM CDT [facility] PATH AND LAB MEDICINE BLOOD / Unknown 11/23/2022 1:14 AM CDT 11/23/2022 1:43 AM CDT Yanni Morrison MD LABORATORY ORDERABLE S Performing Organization Address City/[facility]/ZIP Co de Phone Number [facility] PATH [facility] LAB MEDICINE [address] * HEMOGLOBIN A1C (11/23/2022 1:14 AM CDT) Hemoglobin A1C 5.4 4.0 - 5.7 % 11/23/2022 10:02 AM CDT [facility] DEPT PATH AND LAB MEDICINE Comment: The ADA recommends that most patients with type 1 and type 2 diabetes maintain an A1c level <7%. BLOOD / Unknown 11/23/2022 1:14 AM CDT 11/23/2022 1:43 AM CDT Yanni Morrison MD LABORATORY ORDERABLE S Performing Organization Address [facility] Co de Phone Number [facility] DEPT PATH AND LAB MEDICINE [address] * (ABNORMAL) COMPREHENSIVE METABOLIC PANEL (11/23/2022 1:14 AM CDT) Sodium 135(L) 137 - 147 MMOL/L 11/23/2022 2:18 AM CDT [facility] DEPT PATH AND LAB MEDICINE Potassium 4.0 3.5 - 5.1 MMOL/L 11/23/2022 2:18 AM CDT [facility] DEPT PATH AND LAB MEDICINE Chloride 101 98 - 110 MMOL/L 11/23/2022 2:18 AM CDT [facility] DEPT PATH AND LAB MEDICINE Glucose 101(H) 70 - 100 MG/DL 11/23/2022 2:18 AM CDT [facility] DEPT PATH AND LAB MEDICINE Blood Urea Nitrogen 19 7 - 25 MG/DL 11/23/2022 2:18 AM CDT [facility] DEPT PATH AND LAB MEDICINE Creatinine 0.87 0.4 - 1.00 MG/DL 11/23/2022 2:18 AM CDT [facility] DEPT PATH AND LAB MEDICINE Calcium 9.9 8.5 - 10.6 MG/DL 11/23/2022 2:18 AM CDT [facility] DEPT PATH AND LAB MEDICINE Total Protein 6.3 6.0 - 8.0 G/DL 11/23/2022 2:18 AM CDT [facility] DEPT PATH AND LAB MEDICINE Total Bilirubin 0.3 0.3 - 1.2 MG/DL 11/23/2022 2:18 AM CDT [facility] DEPT PATH AND LAB MEDICINE Albumin 3.6 3.5 - 5.0 G/DL 11/23/2022 2:18 AM CDT [facility] DEPT PATH AND LAB MEDICINE Alk Phosphatase 56 25 - 110 U/L 11/23/2022 2:18 AM CDT [facility] DEPT PATH AND LAB MEDICINE AST (SGOT) 19 7 - 40 U/L 11/23/2022 2:18 AM CDT [facility] DEPT PATH AND LAB MEDICINE CO2 24 21 - 30 MMOL/L 11/23/2022 2:18 AM CDT [facility] DEPT PATH AND LAB MEDICINE ALT (SGPT) 12 7 - 56 U/L 11/23/2022 2:18 AM CDT [facility] DEPT PATH AND LAB MEDICINE Anion Gap 10 3 - 12 11/23/2022 2:18 AM CDT [facility] DEPT PATH AND LAB MEDICINE eGFR >60 >60 mL/min 11/23/2022 2:18 AM CDT [facility] DEPT PATH AND LAB MEDICINE Comment:eGFR calculated eliz matos the CKD-EPIcr_R equation BLOOD / Unknown 11/23/2022 1:14 AM CDT 11/23/2022 1:43 AM CDT Yanni Morrison MD LABORATORY ORDERABLE S [facility] PATH [facility] LAB MEDICINE [address] [place] [address], * (ABNORMAL) CBC AND DIFF (11/23/2022 1:14 AM CDT) White Blood Cells 15.1(H) 4.5 - 11.0 K/UL 11/23/2022 1:54 AM CDT [facility] DEPT PATH AND LAB MEDICINE RBC 3.42(L) 4.0 - 5.0 M/UL 11/23/2022 1:54 AM CDT [facility] DEPT PATH AND LAB MEDICINE Hemoglobin 10.0(L) 12.0 - 15.0 GM/DL 11/23/2022 1:54 AM CDT [facility] DEPT PATH AND LAB MEDICINE Hematocrit 30.8(L) 36 - 45 % 11/23/2022 1:54 AM CDT [facility] DEPT PATH AND LAB MEDICINE MCV 90.0 80 - 100 FL 11/23/2022 1:54 AM CDT [facility] DEPT PATH AND LAB MEDICINE MCH 29.4 26 - 34 PG 11/23/2022 1:54 AM CDT [facility] DEPT PATH AND LAB MEDICINE MCHC 32.6 32.0 - 36.0 G/DL 11/23/2022 1:54 AM CDT [facility] DEPT PATH AND LAB MEDICINE RDW 13.4 11 - 15 % 11/23/2022 1:54 AM CDT [facility] DEPT PATH AND LAB MEDICINE Platelet Count 199 150 - 400 K/UL 11/23/2022 1:54 AM CDT [facility] DEPT PATH AND LAB MEDICINE MPV 10.1 7 - 11 FL 11/23/2022 1:54 AM CDT [facility] DEPT PATH AND LAB MEDICINE Neutrophils 90(H) 41 - 77 % 11/23/2022 1:54 AM CDT [facility] DEPT PATH AND LAB MEDICINE Lymphocytes 5(L) 24 - 44 % 11/23/2022 1:54 AM CDT [facility] DEPT PATH AND LAB MEDICINE Monocytes 4 4 - 12 % 11/23/2022 1:54 AM CDT [facility] DEPT PATH AND LAB MEDICINE Eosinophils 1 0 - 5 % 11/23/2022 1:54 AM CDT [facility] DEPT PATH AND LAB MEDICINE Basophils 0 0 - 2 % 11/23/2022 1:54 AM CDT [facility] DEPT PATH AND LAB MEDICINE Absolute Neutrophil Count 13.59(H) 1.8 - 7.0 K/UL 11/23/2022 1:54 AM CDT [facility] DEPT PATH AND LAB MEDICINE Absolute Lymph Count 0.70(L) 1.0 - 4.8 K/UL 11/23/2022 1:54 AM CDT [facility] DEPT PATH AND LAB MEDICINE Absolute Monocyte Count 0.53 0 - 0.80 K/UL 11/23/2022 1:54 AM CDT [facility] DEPT PATH AND LAB MEDICINE Absolute Eosinophil Count 0.21 0 - 0.45 K/UL 11/23/2022 1:54 AM CDT [facility] DEPT PATH AND LAB MEDICINE Absolute Basophil Count 0.06 0 - 0.20 K/UL 11/23/2022 1:54 AM CDT [facility] DEPT PATH AND LAB MEDICINE BLOOD / Unknown 11/23/2022 1:14 AM CDT 11/23/2022 1:43 AM CDT Yanni Morrison MD LABORATORY ORDERABLE S [facility] PATH [facility] [address] [place] [address], [place] * IR CEREBRAL ARTERIOGRAM DIAGNOSTIC WITH [...] Hicks M.D. on 11/23/2022 9:14 AM. Dictated by [...] MATERIALS USED: Walrus balloon guide sheath, 6 Liberian Perez select guide catheter PROCEDURE: The risks, [...] saved and stored in PACS. A 6 Liberian slender sheath was then placed over the wire and attached to saline drip. An intra-arterial injection of 2.5 mg of verapamil and 200 mcg of nitroglycerin was then given through the sheath. A sheath angiogram was performed demonstrating no gross vascular anatomic abnormalities or variants. The 6 Liberian sheath was then exchanged over a Thornton [...] MATERIALS USED: Walrus balloon guide sheath, 6 Liberian Perez select guidecatheter PROCEDURE: The risks, benefits, [...] saved and stored in PACS. A 6 Liberian slender sheathwas then placed over the wire and attached to saline drip. Anintra-arterial injection of 2.5 mg of verapamil and 200 mcg ofnitroglycerin was then given through the sheath. A sheath angiogram wasperformed demonstrating no gross vascular anatomic abnormalities orvariants. The 6 Liberian sheath was then exchanged over a Thornton [...] - 100 MG/DL 11/22/2022 11:10 PM CDT [facility] 11/22/2022 11:0 8 PM CDT 11/22/2022 11:10 PM CDT Yanni Morrison MD OTHER LABORATORY Performing Organization Address City/State/[facility] Co de Phone Number [facility] [address] [place] [address] * CT HEAD EXTERNAL IMAGING (11/22/2022 12:15 [...] ORDERABLES * CTA HEAD EXTERNAL IMAGING (11/22/2022 12:05 [...] Scanned Document PROCEDURE DUMMY ORDE RS * CTA HEAD EXTERNAL IMAGING (11/22/2022 12:00 AM CDT) Narrative Scheduling, Silent - 11/23/2022 7:05 AM CDT This order has been auto finalized and does not contain a result. Radiologist Outpatient RADIOLOGY EXTERNA L ORDERABLES documented in this encounter Visit Diagnoses Diagnosis Acute ischemic stroke (HCC)- Primary Unspecified cerebral artery occlusion with cerebral infarction Acute ischemic stroke (HCC) Unspecified cerebral artery occlusion with cerebral infarction Aphasia due to acute stroke Dysphagia, unspecified type Right hemiparesis (HCC) Hemiplegia, unspecified, affecting unspecified side Tissue plasminogen activator (tPA) administered at other facility within 24 hours before current admission HTN (hypertension) Unspecified essential hypertension PAD (peripheral artery disease) ([facility]) Peripheral vascular disease, unspecified CAD (coronary artery disease) Coronary atherosclerosis of unspecified type of vessel, [place] or graft NSTEMI (non-ST elevated myocardial infarction) ([facility]) Acute myocardial infarction, subendocardial infarction, episode of care unspecified COPD (chronic obstructive pulmonary disease) ([facility]) Chronic airway obstruction, not elsewhere classified Troponin level elevated Other abnormal blood chemistry Tissue plasminogen activator (tPA) administered at other facility within 24 hours before current admission Leukocytosis Leukocytosis, unspecified PEG (percutaneous endoscopic gastrostomy) status (HCC) Anemia in other chronic diseases classified elsewhere Acute renal insufficiency Unspecified disorder of kidney and ureter * Advance Care Planning/Resuscitation Status - Dontrell Bender, FRANCHESKA-CAUSTIC PREPARER - 11/23/2022 1:27 AM CDT Advance Care Planning/Resuscitation Status Conversation Individuals present for advance care planning conversation: advanced practice provider, patient andpatient surrogate decision maker Pertinent details of conversation (including direct quotes from patient or surrogate): Spoke with Anayeli and Finn about code status. Anayeli is currently oriented x 4 when presented with options but unable to verbalize d/t stroke and expressive aphasia. In the event of cardiac arrest/respiratory distress she expressed that she would not want chest compression, intubation/mechanical ventilation or cardioversion/defibrillaiton. She expressed that she would be okay with vasopressors in the event of hypotension. Finn was in agreement with her wishes. Outcome of conversation: DNAR - Full Intervention Does patient want a TPOPP form at discharge? Need to assess Documents completed as a result of this conversation: None Other documents present, which outline patient/surrogate wishes: None Attestation? N/A documented in this encounter Admitting Diagnoses Diagnosis Acute ischemic stroke (HCC) Unspecified cerebral artery occlusion with cerebral infarction documented in this encounter Administered Medications Inactive Administered Medications Medication Order MAR Action Action Date Dose Rate Site acetaminophen (TYLENOL EXTRA STRENGTH) tablet 1,000 mg 1,000 mg, Oral, ONCE, 1 dose, On 11/28/22 at 0630, TOTAL ACETAMINOPHEN DOSE NOT TO EXCEED 4GM DAILY Given 11/28/2022 6:04 AM CDT 1,000 mg acetaminophen oral solution 650 mg 650 mg, Feeding Tube, EVERY 4 HOURS PRN, Starting on 11/23/22 at 1208, Until Wed11/30/22 at 1317, Temp > ..., 38.3 C, TOTAL ACETAMINOPHEN DOSE NOT TO EXCEED 4GM DAILY Given 11/30/2022 7:18 AM CDT 650 mg documented in this encounter Discontinued Medications Medication Sig Discontinue Reason Start Date End Da te cephalexin (KEFLEX) 500 mg capsule Take one capsule by mouth four times daily. 11/30/2022 cloNIDine ([id number]) 0.3 mg/day patch Apply one patch to top of skin as directed every 28 days. 11/30/2022 carvediloL (COREG) 6.25 mg tablet Take one tablet by mouth twice daily with meals. Take with food. 11/30/2022 diazePAM (VALIUM) 5 mg tabletIndications:anxie ty Take one tablet by mouth three times daily as needed for Anxiety. Indications: anxious Reorder 11/30/2022 pregabalin (LYRICA) 25 mg capsule Take one capsule by mouth three times daily. Reorder 11/30/2022 carvediloL (COREG) 12.5 mg tabletIndications:hyper tension Take two tablets by mouth twice daily with meals. Take with food. Indications: high blood pressure 11/30/2022 simvastatin (ZOCOR) 40 mg tabletIndications:hyper lipidemia Take one tablet by mouth at bedtime daily. Indications: excessive fat in the blood 11/30/2022 carvediloL (COREG) 25 mg tabletIndications:hyper tension one tablet by Per NG tube route twice daily with meals. Take with food. Indications: high blood pressure Reorder 11/30/2022 11/30/2022 atorvastatin (LIPITOR) 80 mg tablet one tablet by Per NG tube route at bedtime daily. Reorder 11/30/2022 11/30/2022 famotidine (PEPCID) 40 mg/5 mL (8 mg/mL) oral suspension Take 2.5 mL via feeding tube twice daily. Reorder 11/30/2022 11/30/2022 ferrous sulfate (FEOSOL) 325 mg (65 mg iron) tablet Take one tablet by mouth daily. Take on an empty stomach at least 1 hour before or 2 hours after food. Reorder 12/01/2022 11/30/2022 pregabalin (LYRICA) 25 mg capsule Take one capsule by mouth three times daily. Reorder 11/30/2022 11/30/2022 pregabalin (LYRICA) 25 mg capsule Take one capsule by mouth three times daily. Reorder 11/30/2022 11/30/2022 documented as of this encounter Historical Medications * This list may reflect changes made after this encounter. Medication Sig Dispensed Refills Start Date End Date topiramate (TOPAMAX) 25 mg tablet Take one tablet by mouth daily. 0 nitroglycerin (NITROSTAT) 0.[address] one tablet under tongue every 5 minutes as needed for Chest Pain. Max of 3 tablets, call 911. 0 dicyclomine (BENTYL) 10 mg capsule Take one capsule to two capsules by mouth four times daily. 0 cloNIDine HCL (CATAPRES) 0.1 mg tablet Take one tablet by mouth every 4 hours as needed (SBP >160). 0 cloNIDine ([id number]-0) 0.2 mg/day patch Apply one patch to top of skin as directed every 7 days. 0 CHOLEcalciferoL (vitamin D3) 1,000 units tablet Take five tablets by mouth daily. 0 clopiDOGreL (PLAVIX) 75 mg tabletIndications:thro mbosis prevention after PCI Take one tablet by mouth daily. Indications: blood clot prevention following percutaneous coronary intervention 0 spironolactone (ALDACTONE) 50 mg tablet Take one tablet by mouth daily. Take with food. 0 hydrALAZINE (APRESOLINE) 25 mg tabletIndications:hype rtension Take two tablets by mouth every 8 hours. Indications: high blood pressure 0 aspirin EC (ASPIR-LOW) 81 mg tablet Take one tablet by mouth daily. 0 meloxicam (MOBIC) 15 mg tablet Take one tablet by mouth daily. 0 lisinopriL (ZESTRIL) 20 mg tabletIndications:hype rtension Take two tablets by mouth daily. Indications: high blood pressure 0 VENTOLIN HFA 90 mcg/actuation inhalerIndications:chr onic obstructive pulmonary disease Inhale two puffs by mouth into the lungs every 4 hours as needed for Wheezing or Shortness of Breath. Indications: chronic obstructive pulmonary disease 0 carvediloL (COREG) 6.25 mg tablet Take one tablet by mouth twice daily with meals. Take with food. 0 3 pregabalin (LYRICA) 25 mg capsule Take one capsule by mouth three times daily. 0 11/30/2022 cloNIDine ([id number]-7) 0.3 mg/day patch Apply one patch to top of skin as directed every 28 days. 0 11/30/2022 carvediloL (COREG) 12.5 mg tabletIndications:hype rtension Take two tablets by mouth twice daily with meals. Take with food. Indications: high blood pressure 0 11/30/2022 simvastatin (ZOCOR) 40 mg tabletIndications:hype rlipidemia Take one tablet by mouth at bedtime daily. Indications: excessive fat in the blood 0 11/30/2022 diazePAM (VALIUM) 5 mg tabletIndications:anxi ety Take one tablet by mouth three times daily as needed for Anxiety. Indications: anxious 0 11/30/2022 cephalexin (KEFLEX) 500 mg capsule Take one capsule by mouth four times daily. 0 12/01/19 added in this encounter Active and Recently Administered Medications Times are shown in CDT. Scheduled Medication Order 11/28/2022 11/29/2022 11/30/2022 acetaminophen (TYLENOL EXTRA STRENGTH) tablet 1,000 mg (COMPLETED) 1,000 mg, Oral, ONCE, 1 dose, On Wed11/28/22 at 0630, TOTAL ACETAMINOPHEN DOSE NOT TO EXCEED 4GM DAILY 0604 (Given - Provider: Christian Del Castillo RN) aspirin chewable tablet 81 mg 81 mg, Per NG tube, DAILY, First dose on Wed11/23/22 at 2100, Until Discontinued 0812 (Given - Provider: Rosana Mckinney RN) 1219 (Given - Provider: Rashida Barragan RN) 0838 (Given - Provider: Rashida Barragan RN) atorvastatin (LIPITOR) tablet 80 mg 80 mg, Per NG tube, AT BEDTIME DAILY, First dose on Wed11/24/22 at 2100, Until Discontinued 2200 (Given - Provider: Casandra Bailey RN) 2134 (Given - Provider: Danelle Reardon RN) carvediloL (COREG) tablet 25 mg 25 mg, Per NG tube, TWICE DAILY WITH MEALS, First dose (after last modification) on Wed11/23/22 at 1200, Until Discontinued, Hold for heart rate < 60 bpm 0813 (Given - Provider: Rosana Mckinney RN)1735 (Given - Provider: Rashida Barragan RN) 1219 (Given - Provider: Rashida Barragan RN)1748 (Given - Provider: Rashida Barragan RN) 0838 (Given - Provider: Rashida Barragan RN) CHOLEcalciferoL (vitamin D3) tablet 5,000 Units 5,000 Units, Oral, DAILY, First dose on Wed11/23/22 at 1200, Until Discontinued 0812 (Given - Provider: Rosana Mckinney RN) 1219 (Given - Provider: Rashida Barragan RN) 0838 (Given - Provider: Rashida Barragan RN) clopiDOGreL (PLAVIX) tablet 75 mg 75 mg, Per NG tube, DAILY, First dose (after last modification) on 11/23/22 at 2100, Until Discontinued, This Medication can increase the risk of bleeding and may need to be held prior to surgery or invasive procedures. Consult physician in advance. 0813 (Given - Provider: Rosana Mckinney RN) 1219 (Given - Provider: Rashida Barragan RN) 0838 (Given - Provider: Rashida Barragan RN) diatrizoate meglumine & sodium 66-10 % (-GASTROVIEW) oral solution 30 mL (COMPLETED) 30 mL, Per G Tube, ONCE, 1 dose, On Wed11/29/22 at 1200, GI Procedure Area Only 1119 (Given - Provider: Matilde Pinto) Diet Enteral Feeding Bolus(Linked Group 1) FOUR TIMES DAILY (ENAR), First dose on 11/28/22 at 1800, Until Discontinued, º Bolus (1) carton (250 mL) of Isosource 1.5 QID º Bolus 1/2 carton (125 mL) for first 1-2 feedings. If tolerated, increase to full cartons. º Flush 60 mL before and after each feeding and flush an additional 150 mL BID for hydration. º EN and all water flushes provide 1544 mL/day (103% needs, 1 mL/kcal) 1735 (Given - Provider: Rashida Barragan RN)2202 (Given - Provider: Casandra Bailey RN) 0943 (Med Not Given - Provider: Rashida Barragan RN - Reason: Other (Comment) - Comment: peg tube awaiting confirmation of placement)1220 (Given - Provider: Rashida Barragan RN)1531 (Given - Provider: Rashida Barragan RN)2136 (Given - Provider: Danelle Reardon RN) 0838 (Given - Provider: Rashida Barragan, JONELLE) docusate sodium (COLACE) oral solution 100 mg(Linked Group 2) 100 mg, Oral, TWICE DAILY, First dose on Wed11/23/22 at 1300, Until Discontinued, Hold for loose stools 0813 (Med Not Given - Provider: Rosana Mckinney RN - Reason: Patient Refused)2200 (Med Not Given - Provider: Casandra Bailey RN - Reason: Patient Refused) 1219 (Given - Provider: Rashida Barragan RN)2137 (Med Not Given - Provider: Danelle Reardon, RN - Reason: Patient Refused) 0840 (Planned Hold - Provider: Rashida Barragan RN) enoxaparin (LOVENOX) syringe 40 mg 40 mg, Subcutaneous, DAILY, First dose on Wed11/24/22 at 2100, Until Discontinued, For patients undergoing surgery: Consult physician in advance -- enoxaparin is an anticoagulant and may need to be held for 12hr prior to surgery or invasive procedures. NOTE: This is a HIGH ALERT Medication. 2201 (Given - Provider: Casandra Bailey RN) 2134 (Med Not Given - Provider: Danelle Reardon, RN - Reason: Patient Refused - Comment: educated) famotidine (PEPCID) oral suspension 20 mg 20 mg, Feeding Tube, TWICE DAILY, First dose on Wed11/30/22 at 0945, Until Discontinued 1124 (Given - Provider: Rashida Barragan, JONELLE) ferrous sulfate (FEOSOL) tablet 325 mg 325 mg, Oral, DAILY, First dose on 11/29/22 at 1015, Until Discontinued, Each 325mg ferrous sulfate delivers 65mg elemental iron. 1219 (Given - Provider: Rashida Barragan RN) 0838 (Given - Provider: Rashida Barragan RN) hydrALAZINE (APRESOLINE) injection 10 mg (COMPLETED) 10 mg, Intravenous, ONCE, 1 dose, On 11/29/22 at 1030 0938 (Given - Provider: Rashida Barragan, RN) hydrALAZINE (APRESOLINE) tablet 50 mg 50 mg, Per G Tube, EVERY 8 HOURS, First dose (after last modification) on 11/28/22 at 0600, Until Discontinued, Admission/Obs/Extended Recovery 0559 (Given - Provider: Christian Del Castillo RN)1456 (Given - Provider: Rashida Barragan, JONELLE)2249 (Given - Provider: Casandra Bailey RN - Comment: BP: 150/58P: 86) 0537 (Med Not Given - Provider: Casandra Bailey RN - Reason: No line available - Comment: Pt peg got dislodged. Dr. Faust aware. Dr. Faust also said will change to IV if pt's BP gets in the 165's-170's)1531 (Med Not Given - Provider: Rashida Barragan RN - Reason: Provider Order)2135 (Given - Provider: Danelle Reardon, RN) 0605 (Given - Provider: Danelle Reardon, JONELLE) lactated ringers infusion (COMPLETED) 1,000 mL, 500 mL, Intravenous, at 75 mL/hr, ONCE, 1 dose, On 11/28/22 at 0645 0609 (Given - New Bag - Provider: Christian Del Castillo RN) lidocaine (LIDODERM) 5 % topical patch 1 patch 1 patch, Topical, Administer over 12 Hours, DAILY, First dose on 11/28/22 at 0230, Until Discontinued, NURSING PLEASE NOTE: Apply patch ONCE DAILY to abdomen and REMOVE after designated duration. Apply only to intact skin. Patch may be cut to fit affected area. 0318 (Patch/Topical Applied - Provider: Christian Del Castillo RN)1456 (Patch/Topical Removed - Provider: Rashida Barragan RN) 0938 (Patch/Topical Applied - Provider: Rashida Barragan RN)2137 (Patch/Topical Removed - Provider: Danelle Reardon, JONELLE) 0838 (Patch/Topical Applied - Provider: Rashida Barragan RN)1138 (Due: Patch/Topical Removed - Provider: Cristian, Orders Discontinue - Comment: Time automatically adjusted from order being discontinued) lisinopriL (ZESTRIL) tablet 40 mg 40 mg, Per NG tube, DAILY, First dose (after last modification) on Wed11/23/22 at 1200, Until Discontinued 0812 (Given - Provider: Rosana Mckinney RN) 1219 (Given - Provider: Rashida Barragan RN) 0838 (Given - Provider: Rashida Barragan RN) milk of magnesium oral suspension 30 mL 30 mL, Per NG tube, DAILY, First dose (after last modification) on Wed11/24/22 at 0900, Until Discontinued, May hold if BM within 24 hours of dose. 0813 (Med Not Given - Provider: Rosana Mckinney RN - Reason: Patient Refused) 0944 (Med Not Given - Provider: Rashida Barragan RN - Reason: Order parameters not met - Comment: BM this AM) 0822 (Med Not Given - Provider: Rashida Barragan RN - Reason: Loose stools) naproxen (NAPROSYN) tablet 500 mg (COMPLETED) 500 mg, Oral, ONCE, 1 dose, On Wed11/30/22 at 0015 2330 (Given - Provider: Danelle Reardon, JONELLE) nicotine (NICODERM CQ) 21 mg/day patch 1 patch 1 patch, Transdermal, Administer over 24 Hours, DAILY, First dose on Wed11/23/22 at 0200, Until Discontinued 0813 (Med Not Given - Provider: Rosana Mckinney RN - Reason: Patient Refused) 0944 (Med Not Given - Provider: Rashida Barragan RN - Reason: Patient Refused) 0823 (Med Not Given - Provider: Rashida Barragan RN - Reason: Patient Refused) pregabalin (LYRICA) capsule 25 mg 25 mg, Feeding Tube, THREE TIMES DAILY, First dose (after last modification) on Wed11/23/22 at 1500, Until Discontinued 0813 (Given - Provider: Rosana Mckinney RN)1456 (Given - Provider: Rashida Barragan RN)2201 (Given - Provider: Casandra Bailey RN) 1219 (Given - Provider: Rashida Barragan RN)1531 (Given - Provider: Rashida Barragan, JONELLE)2135 (Given - Provider: Danelle Reardon, JONELLE) 0838 (Given - Provider: Rashida Barragan RN) senna (SENOKOT) oral syrup 8.8 mg(Linked Group 2) 8.8 mg, Oral, TWICE DAILY, First dose on Wed11/23/22 at 1300, Until Discontinued, Hold for loose stools 0813 (Med Not Given - Provider: Rosana Mckinney RN - Reason: Patient Refused)2200 (Given - Provider: Casandra Bailey RN) 1219 (Given - Provider: Rashida Barragan, JONELLE)2137 (Med Not Given - Provider: Danelle Reardon, JONELLE - Reason: Patient Refused) 0840 (Planned Hold - Provider: Rashida Barragan RN) spironolactone (ALDACTONE) tablet 25 mg (CANCELED) 25 mg, Oral, DAILY, First dose on Wed11/29/22 at 1015, Until Discontinued, NURSING: Please educate patient and document: Avoid using salt substitutes which have a high potassium content (Nu-Salt). 1219 (Given - Provider: Rashida Barragan RN) spironolactone (ALDACTONE) tablet 50 mg 50 mg, Oral, DAILY, First dose (after last modification) on Wed11/30/22 at 0900, Until Discontinued, NURSING: Please educate patient and document: Avoid using salt substitutes which have a high potassium content (Nu-Salt). 0838 (Given - Provider: Rashida Barragan RN) Water Bolus(Linked Group 1) 150 mL, PEG Tube, TWICE DAILY, First dose on 11/28/22 at 2100, Until Discontinued 220 (Given - Provider: Casandra Bailey, RN) 1220 (Given - Provider: Rashida Barragan, JONELLE)2136 (Given - Provider: Danelle Reardon, RN) 0838 (Given - Provider: Rashida Barragan RN) PRN Medication Order 11/28/2022 11/29/2022 11/30/2022 acetaminophen oral solution 650 mg 650 mg, Feeding Tube, EVERY 4 HOURS PRN, Starting on Wed11/23/22 at 1208, Until Wed11/30/22 at 1317, Temp > ..., 38.3 C, TOTAL ACETAMINOPHEN DOSE NOT TO EXCEED 4GM DAILY 1306 (Given - Provider: Rashida Barragan, RN)1738 (Given - Provider: Rashida Barragan, JONELLE) 1219 (Given - Provider: Rashida Barragan, JONELLE)1748 (Given - Provider: Rashida Barragan, RN)2214 (Given - Provider: Danelle Reardon, RN) 0718 (Given - Provider: Danelle Reardon, RN) albuterol-ipratropium (DUONEB) nebulizer solution 3 mL 3 mL, Inhalation, RT EVERY 4 HOURS PRN, Starting on Wed11/23/22 at 0137, Until Wed11/30/22 at 1317, RT PROTOCOL, When administered by RT, will be per RT policy. 1141 (Given - Provider: Dexter Villasenor, RT) 0858 (Given - Provider: Ann Moya, RT) ondansetron HCL (PF) (ZOFRAN (PF)) injection 4 mg 4 mg, Intravenous, EVERY 6 HOURS PRN, Starting on 11/22/22 at 2359, Until Wed11/30/22 at 1317, Nausea/Vomiting Injectable 1607 (Given - Provider: Rashida Barragan, RN)2135 (Given - Provider: Danelle Reardon, RN) 0256 (Given - Provider: Danelle Reardon, RN) pancrelipase 20,880 Units/sodium bicarbonate 650 mg (KU CLOG DESTROYER) Feeding Tube, NEEDED (INDUSTRIAL PSYCHOLOGIST FROM RX), Starting on Wed11/23/22 at 1050, Until Wed11/30/22 at 1317, Occluded Feeding Tube, 1. Crush one pancrelipase 20,880 unit tablet and one sodium bicarbonate 650 mg tablet. 2. Dissolve in 20 ml luke warm water. This will take ~ 1-2 minutes, with stirring required. Some sediment may be present. 3. Once dissolved, let solution sit for 1-2 minutes, 4. Draw enzyme/bicarbonate solution into oral syringe (avoid sediment as best possible). 5. Instill enzyme solution under light pressure, and use a light "back and forth" motion with plunger to help dislodge the clog. 6. Clamp the tube for 5-15 minutes, and then try to aspirate or flush with warm sterile water. May repeat x 1. Notify physician if tube remains occluded following administration. Linked Groups Order Group 1: Diet Enteral Feeding BolusJump to med FOUR TIMES DAILY (ENAR), First dose on Wed11/28/22 at 1800, Until Discontinued
º Bolus (1) carton (250 mL) of Isosource 1.5 QID º Bolus 1/2 carton (125 mL) for first 1-2 feedings. If tolerated, increase to full cartons. º Flush 60 mL before and after each feeding and flush an additional 150 mL BID for hydration. º EN and all water flushes provide 1544 mL/day (103% needs, 1 mL/kcal)
And Water BolusJump to med 150 mL, PEG Tube, TWICE DAILY, First dose on Wed11/28/22 at 2100, Until Discontinued Group 2: senna (SENOKOT) oral syrup 8.8 mgJump to med 8.8 mg, Oral, TWICE DAILY, First dose on Wed11/23/22 at 1300, Until Discontinued
Hold for loose stools
And docusate sodium (COLACE) oral solution 100 mgJump to med 100 mg, Oral, TWICE DAILY, First dose on 11/23/22 at 1300, Until Discontinued
Hold for loose stools
documented in this encounter Orders Medications Ordered That Michael ht Not Have Been Administered Count Last Ordered Date First Ordered Date acetaminophen/lidocaine/anta patt DS(#) (GI COCKTAIL) 1:1:3 suspension 30 mL 1 11/29/2022 ketorolac (TORADOL) injection 15 mg 1 11/29 acetaminophen (OFIRMEV) 1,00 0 mg injection 100 mL 2 11/28/2022 hydrALAZINE (APRESOLINE) injection 10 mg 3 11/28/2022 11/23/2022 hydrALAZINE (APRESOLINE) tablet 50 mg 2 lactated ringers infusion 1 11/28/2022 SODIUM CHLORIDE 0.9 % IV ABBY P (Cabinet Override) 1 11/28/2022 hydrALAZINE (APRESOLINE) injection 25 mg 1 11/25/2022 metoprolol (LOPRESSOR) injection 40 mg 1 hydrALAZINE (APRESOLINE) tablet 10 mg 2 acetaminophen (TYLENOL) tablet 650 mg 1 albuterol sulfate (PROAIR HF A) inhaler 2 puff 1 11/23/2022 aspirin EC (ASPIR-LOW) tablet 81 mg 1 11/23 calcium gluconate 1 g/NS 100 mL infusion 1 11/23/2022 carvediloL (COREG) tablet 25 mg 1 3 clopiDOGreL (PLAVIX) tablet 75 mg 1 023 Diet Enteral Feeding Standard Infusion 1 docusate (COLACE) capsule 100 mg 1 11/24/19 23 IPRATROPIUM-ALBUTEROL 0.5 MG -3 MG(2.5 MG BASE)/3 ML IN NEBU (Cabinet Override) 1 11/23/2022 labetaloL (NORMODYNE) injection 10 mg 1 lisinopriL (ZESTRIL) tablet 40 mg 1 023 milk of magnesium oral suspension 30 mL 1 0 11/23/2022 pancrelipase 20,880 Units/so dium bicarbonate 650 mg (KU CLOG DESTROYER) 1 11/23/2022 potassium chloride in water IVPB 10 mEq 1 0 11/23/2022 potassium chloride oral solution 40-60 mEq 1 11/23/2022 potassium chloride SR (K-DUR ) tablet 40-60 mEq 1 11/23/2022 pregabalin (LYRICA) capsule 25 mg 1 023 sennosides-docusate sodium ( SENOKOT-S) tablet 1 tablet 1 11/23/2022 simvastatin (ZOCOR) tablet 40 mg 1 11/24/19 23 Procedures Count Last Ordered Date First Orde red Date CONSULT VASCULAR ACCESS TEAM 3 11/29/2022 11/23/2022 Diet Count Last Ordered Date First Orde red Date DISCHARGE DIET CARDIAC 1 11/30/2022 Nursing Count Last Ordered Date First Orde red Date DISCHARGE ACTIVITY NORMAL 1 11/30/2022 DISCHARGE CONTACT 1 11/30/2022 DISCHARGE ORDERS COMPLETE NOTIFICATION 1 DISCHARGE SIGNS/SYMPTOMS 1 11/30/2022 RISK REDUCTION PLAN 1 11/30/2022 POST PROCEDURE/OPERATIVE VITAL SIGNS 1 10/31 Consult Count Last Ordered Date First Orde red Date CONSULT DIETITIAN 2 11/28/2022 11/23/2022 CONSULT INTERVENTIONAL RADIOLOGY PHYSICIAN 2 11/26/2022 11/22/2022 CONSULT REHABILITATION MEDICINE PHYSICIAN 1 11/23/2022 OT Count Last Ordered Date First Orde red Date OT CONSULT OCCUPATIONAL THERAPY 1 PT Count Last Ordered Date First Orde red Date PT CONSULT PHYSICAL THERAPY 1 11/23/2022 SPACE OFFICER Count Last Ordered Date First Orde red Date CONSULT SPACE OFFICER VIDEOSWALLOW EVAL & TX 1 2022 SPACE OFFICER CONSULT CLINICAL BEDSIDE SWALLOW EVAL & TX 1 11/23/2022 Admission Count Last Ordered Date First Orde red Date ADMIT TO INPATIENT (NO BED REQUEST) 1 11/23 Transfer Count Last Ordered Date First Orde red Date TRANSFER PATIENT (BED REQUEST) 2 11/28/2022 11/24/2022 Discharge Count Last Ordered Date First Orde red Date DISCHARGE PATIENT NOW 1 11/30/2022 Equipment Count Last Ordered Date First Orde red Date COMPRESSION DEVICE, LEG 2 11/28/202210/31 HEATING, MACHINE AK WITH PAD 1 11/28/2022 PUMP, FEEDING 5 11/26/2022 11/23/2022 PUMP IV CONTROL UNIT W/MODULES 2 11/25/2022 11/22/2022 Vital Signs Count Last Ordered Date First Orde red Date VITAL SIGNS 1 11/24/2022 Activity Count Last Ordered Date First Orde red Date MOBILITY 1 11/23/2022 Tube Feeding Count Last Ordered Date First Orde red Date SMALL BORE FEEDING TUBE PLACEMENT 1 023 Order Set Communication Count Last Ordered Date First Ordered Date PATIENT HAS: 1 11/24/2022 ADD AGITATE SALINE BUBBLE STUDY TO ECHO 1 0 11/23/2022 VTE DRUG PROPHYLAXIS CONTRAINDICATED 1 10/31 Intake & Output Count Last Ordered Date First O rdered Date INTAKE AND OUTPUT 1 11/28/2022 Place & Maintain Count Last Ordered Date First Ordered Date PLACE AND MAINTAIN SCD 1 11/23/2022 ADT Patient Update Count Last Ordered Date Firs t Ordered Date CHANGE SERVICE / LEVEL OF CA RE (NO BED REQUEST) 3 11/24/2022 documented in this encounter Additional Health Concerns Assessment Noted Time A fall risk assessment has been complete d for the patient 11/29/2022 9:30 PM CDT documented as of this encounter Care Teams Portfolio Consultant Relationship Specialty Start Date End Date Whitney Burnham, RN PCP - General 11/22/22 11/22/22 Whitney Burnham, RN PCP - General 11/23/22 documented as of this encounter
--- OUTSIDE RECORDS SUMMARY | 2022-11-30 14:12 | XMS REPORT | Encounter Summary ---
Author Author [facility] Organization [facility] Address Unknown Phone Unavailable Care Team Providers Care Farm Crew Leader Name Role Phone Whitney Burnham RN PCP Unavailable Encounter Details Date Type Department Care Team Description 11/23/2022 10:00 PM CDT Anesthesia Event Anesthesiology: [facility] [address] [place] [address] Jared Harrington MD [address] [facility] [place], [place] [id number] Anesthesia Record Procedure Summary Procedure Name Responsible Anesthesiologist Anesthesia Start Time Anesthesia Stop Time ANESTHESIA PRE-EVAL Events No events on file. Meds * Agents No agents on file. * Blood No blood administrations on file. Lines, Drains, and Airways Type Details Placement Removal Gastrostomy Tube 11/27/22; 1745; Abdo men, Left Upper Medial; 18FR; Yes 11/27/22 1745 by Ayesha Gandara RN Peripheral IV 11/29/22; 0530; R; L ower; Forearm; 22 G; Inserted by Vascular Access Team 11/29/22 0530 by Casandra Bailey RN documented in this encounter Social History [...] on file documented as of this encounter OR Notes * Anesthesia Preprocedure Evaluation - Jared Harrington MD - 11/22/2022 9:47 PM CDT Anesthesia Pre-Procedure Evaluation Name: Anayeli Mobley : 1945 Age: 77 y.o. Sex: female Procedure Info: Procedure Information Date: 11/22/22 Procedure: ANESTHESIA PRE-EVAL Physical Assessment Vital Signs (last filed in past 24 hours): Patient History Not on File Current Medications Not on File Review of Systems/Medical History PONV Screening: Non-smoker and Female sex Pulmonary COPD (Home O2 4L), severe Cardiovascular Hypertension, Past OH (11/18/22): non-STEMI, acute (< 6 months) Coronary artery disease Coronary artery bypass graft (2011) PTCA: drug-eluting stent PVD Troponin 2.65 Neuro/Psych CVA (L ICA occlusion; s/p tPA), residual symptoms, < 9 Months Weakness (right) Aphasic, facial droop Endocrine/Other Anemia (Hgb 10.7) PHYSICAL EXAM Diagnostic Tests Hematology: No results found for: "HGB", "HCT", "PLTCT", "WBC", "NEUT", "ANC", "LYMPH", "ALC", "ABSLYMPHCT", "DOMINGO", "AMC", "EOSA", "ABC", "BASOPHILS", "MCV", "MCH", "MCHC", "MPV", "RDW" General Chemistry: No results found for: "NA", "K", "CL", "CO2", "GAP", "BUN", "CR", "GLU", "CA", "KETONES", "ALBUMIN", "LACTIC", "OBSCA", "MG", "TOTBILI", "TOTBILCB", "PO4" Coagulation: No results found for: "PT", "PTT", "INR" PAC Plan Anesthesia Plan ASA score: 4 emergent Plan: general Induction method: intravenous NPO status: waived due to emergency Alerts documented in this encounter Plan of Treatment Not on file documented as of this encounter Visit Diagnoses Not on filedocumented in this encounter Additional Health Concerns Assessment Noted Time A fall risk assessment has been complete d for the patient 11/22/2022 11:55 PM CDT documented as of this encounter Care Teams Farm Crew Leader Relationship Specialty Start Date End Date Whitney Burnham, RN PCP - General 11/23/22 documented as of this encounter
--- OUTSIDE RECORDS SUMMARY | 2022-11-30 14:12 | XMS REPORT | Encounter Summary ---
Author Author [facility] Organization [facility] Address Unknown Phone Unavailable Care Team Providers Care Electrician Machine Shop Name Role Phone Whitney Burnham RN PCP Unavailable Reason for Visit * Auth/Cert (Routine) Specialty Diagnoses / Procedures Referred By Grace t Referred To Contact Diagnoses Acute ischemic stroke (HCC) stroke Referral ID Status Reason Start Date Expiration Date Visits Re quested Visits Authorized [id number] 1 Encounter Details Date Type Department Care Team Description 11/29/2022 5:30 AM CDT Hospital Encounter Vascular Access Team: [facility] [address] [place] [address] Topher Moy MD [address] [place] [address] Social History Tobacco Use Types [...] Type Associated Problems Recent Progress Patient-Stated? Author [facility] On track(11/27/19 11:13 AM CDT) No Mando Johns RN documented as of this encounter Procedures Procedure Name Priority Date/Time Associated Diagnosis Comments CONSULT VASCULAR ACCESS TEAM Routine 11/29/2022 5:15 AM CDT documented in this encounter Visit Diagnoses Not on filedocumented in this encounter Orders Procedures Count Last Ordered Date First Orde red Date CONSULT VASCULAR ACCESS TEAM 1 11/29/2022 documented in this encounter Additional Health Concerns Assessment Noted Time A fall risk assessment has been complete d for the patient 11/29/2022 9:30 PM CDT documented as of this encounter Care Teams Electrician Machine Shop Relationship Specialty Start Date End Date Whitney Burnham, JONELLE PCP - General 11/23/22 documented as of this encounter
--- OUTSIDE RECORDS SUMMARY | 2022-11-30 14:12 | XMS REPORT | Encounter Summary ---
Author Author [facility] Organization [facility] Address Unknown Phone Unavailable Care Team Providers Care Touch Up Carver Name Role Phone Whitney Burnham RN PCP Unavailable Reason for Visit * Auth/Cert (Routine) Specialty Diagnoses / Procedures Referred By Grace wilkerson Referred To Contact Diagnoses Acute ischemic stroke (HCC) stroke Referral ID Status Reason Start Date Expiration Date Visits Re quested Visits Authorized [id number] 1 1 Encounter Details Date Type Department Care Team Description 11/27/2022 5:20 PM CDT Anesthesia Event Interventional Radiology: [facility] [address], [id number] [place] [id number] Sathish Farris MD [address] [address] Alex Preslye MD [address] [address] Anesthesia Record Procedure Summary Procedure Name Responsible Anesthesiologist Anesthesia Start Time Anesthesia Stop Time IR GASTROSTOMY TUBE PLACEMENT Sathish Farris MD 11/27/22 1720 11/27/22 1757 Events Date Time Event Comment 11/27/2022 1623 1708 AN Equip Check 1720 Anes Start 1723 An Start Data 1723 Out of Pre Procedure 1725 Start Supplemental O2 1725 In Room 1727 Anesthesia Ready 1740 Proc Start 1752 an stop data 1757 An Stop I completed my SBAR handoff to the receiving nurse. Meds * Agents Name O2 N2O Inspired N2O * Blood No blood administrations on file. Lines, Drains, and Airways Type Details Placement Removal Gastrostomy Tube 11/27/22; 1744; Abdomen, Left Upper Medial; 18FR; Yes 11/27/22 174 by Ayesha Gandara, JONELLE Peripheral IV 11/23/22; 0116; R; Anterior; Forearm; 20 G; Ultrasound; One (blood drawn with PIV start); 1.25 inches; Symptomatic (phlebitis, pain, leaking, swelling, infiltration); 11/28/22; 0711/23/22 0116 by Kat Elena BSN 11/28/22717 by Christian Del Castillo RN Small Bore Feeding Tube 11/25/22; 2237; Nose; Gastric; 10 FR; Cortrak; Nursing; X-ray; 74 cm; 1; 1; Air bolus, Reposition Pt; Yes; 11/27/22; 17511/25/222237 by Farooq Pina RN 11/27/221749 by Yue Salinas RN documented in this encounter Social History [...] OR Notes * Anesthesia Postprocedure Evaluation - Christian Szymanski MD - 11/27/2022 6:29 PM CDT Post-Anesthesia Evaluation Name: Anayeli Mobley : 1945 Age: 77 y.o. Sex: female Procedure Information Anesthesia Start Date/Time: 11/27/221719 Scheduled providers: Ruthann Barrios, RN; Jaiden Le RT(R)(),LRT; David Rizzo MD Procedure: IR GASTROSTOMY TUBE PLACEMENT Location: Interventional Radiology: [facility] Post-Anesthesia Vitals BP: 114/53 (11/27 1824) Pulse: 75 (11/27 1824) Respirations: 11 PER MINUTE (11/27 1824) SpO2: 97 % (11/27 1824) SpO2 Pulse: 74 (11/27 1824) O2 Device: Nasal cannula (11/27 1824) Vitals Value Taken Time BP 114/53 11/27/221824 Temp Pulse 75 11/27/221824 Respirations 11 PER MINUTE 11/27/221824 SpO2 97 % 11/27/221824 O2 Device Nasal cannula 11/27/221824 ABP ART BP Post Anesthesia Evaluation Note Evaluation location: Pre/Post Patient participation: Note status: receovered to baseline. Level of consciousness: Post-procedure mental status: baseline. Pain management: adequate Hydration: normovolemia Temperature: 36.0°C - 38.4°C Airway patency: adequate Perioperative Events Post-op nausea and vomiting: no PONV Postoperative Status Cardiovascular status: hemodynamically stable Respiratory status: spontaneous ventilation Follow-up needed: none Perioperative Events There were no known notable events for this encounter. * Anesthesia Preprocedure Evaluation - Sathish Farris MD - 11/27/2022 4:20 PM CDT Anesthesia Pre-Procedure Evaluation Name: Anayeli Mobley : 1945 Age: 77 y.o. Sex: female Procedure Info: Procedure Information Date/Time: 11/27/22 1715 Scheduled providers: Sathish Farris MD; Ruthann Barrios RN; Jaiden Le RT(R)(TEMO),LRT; David Rizzo MD Procedure: IR GASTROSTOMY TUBE PLACEMENT Location: Interventional Radiology: [facility] Physical Assessment Vital Signs (last filed in past 24 hours): BP: 176/59 (11/27 1525) Temp: 36.3 °C (97.4 °F) (11/27 1525) Pulse: 75 (11/27 1525) Respirations: 16 PER MINUTE (11/27 1525) SpO2: 99 % (11/27 1525) O2 Device: Nasal cannula (11/27 1525) O2 Liter Flow: 2 Lpm (11/27 1525) Patient History Allergies Allergen Reactions • Amlodipine RASH • Sulfa (Sulfonamide Antibiotics) UNKNOWN Current Medications Medication Directions aspirin EC (ASPIR-LOW) 81 mg tablet Take one tablet by mouth daily. carvediloL (COREG) 12.5 mg tablet Take two tablets by mouth twice daily with meals. Take with food. Indications: high blood pressure Patient not taking: Reported on 11/25/2022 carvediloL (COREG) 6.25 mg tablet Take one tablet by mouth twice daily with meals. Take with food. cephalexin (KEFLEX) 500 mg capsule Take one capsule by mouth four times daily. CHOLEcalciferoL (vitamin D3) 1,000 units tablet Take five tablets by mouth daily. cloNIDine (RXMJGWEU-LYL-0) 0.2 mg/day patch Apply one patch to top of skin as directed every 7 days. cloNIDine (EXBNEXGE-QNO-2) 0.3 mg/day patch Apply one patch to top of skin as directed every 28 days. Patient not taking: Reported on 11/25/2022 cloNIDine HCL (CATAPRES) 0.1 mg tablet Take one tablet by mouth every 4 hours as needed (SBP >160). clopiDOGreL (PLAVIX) 75 mg tablet Take one tablet by mouth daily. Indications: blood clot prevention following percutaneous coronary intervention diazePAM (VALIUM) 5 mg tablet Take one tablet by mouth three times daily as needed for Anxiety. Indications: anxious dicyclomine (BENTYL) 10 mg capsule Take one capsule to two capsules by mouth four times daily. hydrALAZINE (APRESOLINE) 25 mg tablet Take two tablets by mouth every 8 hours. Indications: high blood pressure lisinopriL (ZESTRIL) 20 mg tablet Take two tablets by mouth daily. Indications: high blood pressure meloxicam (MOBIC) 15 mg tablet Take one tablet by mouth daily. nitroglycerin (NITROSTAT) 0.[address] one tablet under tongue every 5 minutes as needed forChest Pain. Max of 3 tablets, call 911. pregabalin (LYRICA) 25 mg capsule Take one capsule by mouth three times daily. simvastatin (ZOCOR) 40 mg tablet Take one tablet by mouth at bedtime daily. Indications: excessive fat in the blood spironolactone (ALDACTONE) 50 mg tablet Take one tablet by mouth daily. Take with food. topiramate (TOPAMAX) 25 mg tablet Take one tablet by mouth daily. VENTOLIN HFA 90 mcg/actuation inhaler Inhale two puffs by mouth into the lungs every 4 hours as needed for Wheezing or Shortness of Breath. Indications: chronic obstructive pulmonary disease Review of Systems/Medical History patient unresponsive Patient summary reviewed Pertinent labs reviewed PONV Screening: Non-smoker and Female sex Pulmonary Not a current smoker (former smoker) COPD (Home O2 4L), severe Cardiovascular Exercise tolerance: unknown Beta Shayy therapy: Yes Beta blockers within 24 hours: Yes Hypertension, well controlled Past RI (11/18/22): non-STEMI, acute (< 6 months) Coronary artery disease Coronary artery bypass graft (2011) PTCA: drug-eluting stent PVD Troponin 2.65 GI/Hepatic/Renal Renal disease (Cr 1.24): Neuro/Psych CVA (L ICA occlusion; s/p tPA), residual symptoms, < 9 Months Weakness (right) Aphasic, facial droop Endocrine/Other Anemia (Hgb 8.6) On 11/22 at approximately 1700 she developed [...] Pulmonary Findings: Breath sounds clear to auscultation. Abdominal Findings: Not obese Neurological Findings: Alert and oriented x 3 Constitutional findings: No acute distress Well-developed Well-nourished Other Findings: Able to understand but pt has expressive aphasia 4/5 BUE and 3/5 BUE Diagnostic Tests Hematology: Lab Results Component Value Date HGB 8.6 11/27/2022 HCT 26.7 11/27/2022 PLTCT 232 11/27/2022 WBC 8.2 11/27/2022 NEUT 69 11/27/2022 ANC 5.67 11/27/2022 ALC 1.29 11/27/2022 DOMINGO 12 11/27/2022 AMC 0.97 11/27/2022 EOSA 3 11/27/2022 ABC 0.03 11/27/2022 MCV 90.7 11/27/2022 MCH 29.1 11/27/2022 MCHC 32.1 11/27/2022 MPV 10.0 11/27/2022 RDW 13.5 11/27/2022 General Chemistry: Lab Results Component Value Date NA 137 11/27/2022 K 4.7 11/27/2022 CL 101 11/27/2022 CO2 30 11/27/2022 GAP 6 11/27/2022 BUN 33 11/27/2022 CR 1.24 11/27/2022 GLU 103 11/27/2022 CA 9.8 11/27/2022 ALBUMIN 3.6 11/23/2022 OBSCA 1.35 11/23/2022 MG 2.4 11/27/2022 TOTBILI 0.3 11/23/2022 PO4 3.1 11/27/2022 Coagulation: No results found for: "PT", "PTT", "INR" PAC Plan Anesthesia Plan ASA score: 4 Plan: MAC Induction method: intravenous NPO status: acceptable Informed Consent Anesthetic plan and risks discussed with spouse and patient. Plan discussed with: AUDITING CLERK and surgeon/proceduralist. Comments: (Consent done with spouse. Spouse wants to continue DNAR-FI during the procedure. He specifically does not want intubation nor chest compression. No heroic measures will be done. ) Alerts documented in this encounter Plan of Treatment Not on file documented as of this encounter Goals Goal Patient Goal Type Associated Problems Recent Progress Patient-Stated? Author [facility] On track(11/27/19 11:13 AM CDT) No Mando Johns RN documented as of this encounter Visit Diagnoses Not on filedocumented in this encounter Administered Medications Inactive Administered Medications Medication Order MAR Action Action Date Dose Rate Site fentaNYL citrate PF (SUBLIMAZE) injection Intravenous, INTRA-PROCEDURE MED, Starting on Wed11/27/22 at 1727, Until Wed11/27/22 at 1757, Anesthesia Intra-op Given 11/27/2022 5:33 PM CDT 25 mcg documented in this encounter Additional Health Concerns Assessment Noted Time A fall risk assessment has been complete d for the patient 11/27/2022 8:15 PM CDT documented as of this encounter Care Teams Touch Up Carver Relationship Specialty Start Date End Date Whitney Burnham, JONELLE PCP - General 11/23/22 documented as of this encounter
--- OUTSIDE RECORDS SUMMARY | 2022-11-30 14:12 | XMS REPORT | Encounter Summary ---
Author Author [facility] Organization [facility] Address Unknown Phone Unavailable Care Team Providers Care Supervisor Intelligence Analyst Name Role Phone Whitney Burnham RN PCP Unavailable Encounter Details Date Type Department Care Team Description 11/22/2022 12:15 AM CDT - 11/22/2022 10:41 PM CDT Hospital Encounter Imaging: [facility] [address], [address] [place] [address] Discharge Disposition: Home or Self [...] five tablets by mouth daily. 0 cloNIDine (OQIJEOJY-EQW-7) 0.2 mg/day patch Apply one patch to [...] Code Departure Means Destination Home or Self Alf documented in this encounter Plan of Treatment Not on file documented as of this encounter Procedures Procedure Name Priority Date/Time Associated Diagnosis Comments CT HEAD EXTERNAL IMAGING Routine 11/22/2022 12:15 AM CDT documented in this encounter Results * CT HEAD EXTERNAL IMAGING (11/22/2022 12:15 [...] documented as of this encounter Care Teams Supervisor Intelligence Analyst Relationship Specialty Start Date End Date Whitney Burnham, JONELLE PCP - General 11/22/22 11/22/22 documented as of this encounter
[2022-11-30] MEDS ORDERED: NITROGLYCERIN 0.4 MG SL TABLETS BTL 25'S SL PRN (14:45)
[2022-11-30] MEDS ORDERED: RT-ALBUTEROL HFA 8.5 GM INHALER IH PRN (15:00)
--- NOTE | 2022-11-30 15:27 | Physical Therapy Evaluation ---
PT Evaluation-General Medical Diagnosis Admission Date Nov 30, 2022 at 13:58 Medical Diagnosis: CVA Onset Date: Nov 22, 2022 Therapy Diagnosis Therapy Diagnosis: Decreased functional mobility Height/Weight Height (Feet): 4 Height (Inches): 11.00 Weight (Pounds): 151 Weight (Ounces): 14.8 Precautions Precautions/Isolations: Fall Prevention, Standard Precautions Weight Bear Status Right Lower Extremity: Right Full Weight Bearing Left Lower Extremity: Left Full Weight Bearing Referral Physician: Jan Reason for Referral: Evaluation/Treatment Medical History Pertinent Medical History: CABG, CAD, COPD, GERD, HTN, Smoking Additional Medical History HTN, PAD, CAD s/p CABG, NSTEMI s/p stenting (11/18/22), COPD with chronic hypoxia (4L at baseline), high cholesterol, GERD Current History CVA on 11/22/22; Admitted to ARU on 11/30/22 Reviewed History: Yes Social History Home: Single Level Current Living Status: Significant Other Entry Into Home: Ramp PT Steps Into Home: 0 PT Steps Inside Home: 3 Pt lives in an RV with her spouse; ramp to enter/exit with B HR; 3 steps into the bedroom with L HR; walk-in shower, GBs, HH shower head Prior Prior Level of Function SCALE: Activities may be completed with or without assistive devices. 4-Tnhaupiqle-vmymmnk completes the activity by him/herself with no assistance from a helper. 5-Set-up or Clean-up Assistance-helper sets up or cleans up; patient completes activity. [place] assists only prior to or following the activity. 4-Supervision or Touching Assistance-helper provides verbal cues and/or touching/steadying and/or contact guard assistance as patient completes activity. Assistance may be provided throughout the activity or intermittently. 3-Partial/Moderate Assistance-helper does LESS THAN HALF the effort. [place] lifts, holds or supports trunk or limbs, but provides less than half the effort. 2-Substantial/Maximal Assistance-helper does MORE THAN HALF the effort. [place] lifts or holds trunk or limbs and provides more than half the effort. 4-Neqetadbi-zqtmpj does ALL the effort. Patient does none of the effort to complete the activity. Or, the assistance of 2 or more helpers is required for the patient to complete the activity. If activity was not attempted, code reason: 7-Patient Refused. 9-Not Applicable-not attempted and the patient did not perform the activity before the current illness, exacerbation or injury. 10-Not Attempted due to Environmental Limitations-(lack of equipment, weather restraints, etc.). 88-Not Attempted due to Medical Conditions or Safety Concerns. Bed Mobility: 6 Transfers (B,C,W/C): 6 Gait: 6 Stairs: 6 Wheelchair Mobility: 9 Indoor Mobility (Ambulation): Independent Stairs: Independent Prior Devices Use: None At PLOF, pt was Ind with no AD; driving. PT Evaluation-Current Subjective Pt is agreeable to PT; pt is unable to verbalize pain, put points to her PEG tube Pain Section J - Health Conditions 1. Rarely or not at all 2. Occasionally 3. Frequently 4. Almost constantly 8. Unable to answer Pain Effect on Sleep: 2 Pain Interference with Therapy: 2 Pain Interference w/Day-to-Day: 2 Pt/Family Goals Safely return home Objective Attachments: Oxygen (4L ), PEG Tube, IV ROM/Strength ROM Upper Extremities See OT eval ROM Lower Extremities WFL Strength Upper Extremities See OT eval Strength Lower Extremities B LE MMT = 3+/5 grossly Integumentary/Posture Integumentary See nurses note Bowel Incontinence: No Bladder Incontinence: No Sensory Vision: Wears Glasses Hearing: Functional Hand Dominance: Left Sensation Right Upper Extremit: Intact Sensation Left Upper Extremity: Intact Sensation Right Lower Extremit: Intact Sensation Left Lower Extremity: Intact Transfers Roll Left & Right (QC): 4 (SBA ) Sit to Lying (QC): 4 (SBA ) Lying to Sitting/Side of Bed(Q: 4 (SBA ) Sit to Stand (QC): 4 (SBA ) Chair/Yon-lj-Pieeb Xfer(QC): 4 (SBA ) Toilet Transfer (QC): 4 (SBA ) Car Transfer (QC): 4 (SBA ) Gait Does the Patient Walk?: Yes Mode of Locomotion: Walk Anticipated Mode of Locomotion: Walk Walk 10 feet (QC): 4 (CGA ) Walk 50 ft with 2 Turns(QC): 4 (CGA ) Walk 150 ft (QC): 88 (Decreased endurance ) Walking 10ft/uneven surface-QC: 4 (CGA ) Gait Assistive Device: FWW Wheelchair Training Does the Pt Use a Wheelchair?: No Wheel 50 ft with 2 turns (QC): 9 Wheel 150 ft (QC): 9 Type of Wheelchair: N/A Stairs #of Steps: 12 1 Step (curb) (QC): 4 (CGA ) 4 Steps (QC): 4 (CGA ) 12 Steps (QC): 4 (CGA ) Walking Assistive Device: Walker Balance Sitting Static: Good Sitting Dynamic: Good Standing Static: Fair Standing Dynamic: Fair Picking up an Object (QC): 4 (CGA with termite treater helper ) Special Test Comments KU standing balance scale = 3+/5 (goal = 4+/5) Treatment PT eval completed. PT/OT co-tx from [id number], skills of 2 clinicians required for decreasing fall risk, for increased pain, and to increase activity tolerance for daily functional tasks. PT focusing on B LE strengthening, bed mobility, transfers, walking, safety, and Ind, while OT focusing on B UE strengthening and functional mobility/ADLs. Pt completed bed mobility and functional transfers with SBA. Pt ambulated 80ft, 90ft, and 85ft with the FWW and CGA. Pt completed 12 steps with B HR and CGA. After treatment session, pt was lying in bed with call light in reach, spouse present, and all needs met. Assessment/Needs Pt tolerated PT well, with good effort Rehab Potential: Good Post Rehab Potential-Barriers: Weakness, endurance, communication Equipment Needs FWW PT Yarn Polishing Machine Operator Goals Chcf Goals PT Chcf Goals Time Frame: Dec 21, 2022 Roll Left to Right (QC): 6 (Pt will be Mod I with functional mobility ) Sit to Lying (QC): 6 (Pt will be Mod I with functional mobility ) Lying-Sitting on Side/Bed(QC): 6 (Pt will be Mod I with functional mobility ) Sit to Stand (QC): 6 (Pt will be Mod I with functional mobility ) Chair/Bso-nc-Vcrff Xfer(QC): 6 (Pt will be Mod I with functional mobility ) Toilet/Commode Transfer (QC): 6 (Pt will be Mod I with functional mobility ) Car Transfer (QC): 6 (Pt will be Mod I with functional mobility ) Does the Patient Walk: Yes Walk 10 feet (QC): 6 (Pt will be Mod I with functional mobility ) Walk 10ft-Uneven Surface(QC): 6 (Pt will be Mod I with functional mobility ) Walk 50ft with 2 Turns (QC): 6 (Pt will be Mod I with functional mobility ) Walk 150 ft (QC): 6 (Pt will be Mod I with functional mobility ) Does the Pt use WC or Scooter?: No Wheel 50 feet with 2 turns (QC: 9 Type: N/A Wheel 150 feet: 9 Type: N/A 1 Step (curb) (QC): 6 (Pt will be Mod I with functional mobility ) 4 Steps (QC): 6 (Pt will be Mod I with functional mobility ) 12 Steps (QC): 6 (Pt will be Mod I with functional mobility ) Picking up an Object (QC): 6 (Pt will be Mod I with functional mobility (with termite treater helper) ) KU standing balance scale goal = 4+/5 PT Plan Problem List Problem List: Activity Tolerance, Functional Strength, Safety, Balance, Gait, Transfer, Bed Mobility, ROM Treatment/Plan Treatment Plan: Continue Plan of Care Treatment Plan: Bed Mobility, Education, Functional Activity Lou, Functional Strength, Group Therapy, Gait, Safety, Therapeutic Exercise, Transfers Treatment Duration: Dec 21, 2022 Frequency: At least 5 of 7 days/Wk (IRF) Estimated Hrs Per Day: 1 hour per day Patient and/or Family Agrees t: Yes Safety Risks/Education Patient Education: Gait Training, Transfer Techniques, Steps, Correct Po sitioning, Safety Issues Teaching Recipient: Patient Teaching Methods: Demonstration, Discussion Response to Teaching: Return Demonstration, Reinforcement Needed Discharge Recommendations Therapy Discharge Recommendati: Home & Family, Post Acute PT Equpiment Recommendations-D/C: Front Wheeled Walker Discharge Status/Home Program Cont per POC Barriers to Progress Weakness, endurance, communication Target Placement Home with spouse Time Time In: 1524 Time Out: 1624 DATE: Nov 30, 2022 Total Billed Treatment Time: 60 Total Billed Treatment 60 min total from 4184-4181; 45 min co-tx from 1389-2202 1 visit EVM FA x 1 GT x 2 LUC METZGER PT Nov 30, 2022 15:27
--- NOTE | 2022-11-30 15:40 | ST Dysphagia Evaluation ---
Speech Evaluation-General Medical Diagnosis CVA Onset Date: Nov 22, 2022 Therapy Diagnosis Therapy Diagnosis: Aphasia/apraxia Precautions Precautions/Isolations: Standard Precautions Referral Referring Physician: Dr. Montoya Reason for Referral: Evaluation/Treatment Medical History Pertinent Medical History: CABG, CAD, COPD, GERD, HTN, Smoking Current History Recent discharge from [facility] on 11/18/22 s/p NSTEMI with coronary stenting. ON 11/22/22 she presented to ED with expressive aphasia, R facial droop and R side weaknes. TNK was administered. MRI showed multiple small bilateral infarcts in the left precentral gyrus-opercular region, anterior left periventricular frontal lobe, right middle frontal gyrus Social History Current Living Status: Spouse Speech PLF/Current-Dysphagia Prior Level of Function Independent for language and cognition. Subjective The pt was awake and alert. She motioned to her chest and stomach, indicating pain in these areas 2x throughout session. Nursing notified. Cognitive Status Patient Orientation: Non-Verbal/Aphasic Oral Motor Skills Dentition: Edentalous Denture Type: Full- Upper & Lower Current Food Consistancy: Full Liquids, Thin Liquids Ability to Follow Directions: Good Oral Expression Ability: Severe Impairment Face Facial Symmetry: Asymmetrical Asymmetrical at rest with right labial droop. Oral-Facial Assessment Labial Seal Description: Reduced ROM, Droops Right, Weak, Poor Coordination Smile: Poor Coordination Lingual Protrusion: Abnormal Limited protrusion, able to extend to lower and upper lips Lingual ROM: Abnormal Poor lateralization and elevation Dysphagia Evaluation Consistencies Presented: Thin Liquid, Pureed anthony cracker Oral Phase: Oral Residue, Right Pocketing, Reduced Oral Transit Timely swallow onset, rapid and full laryngeal excursion. Dietary Recommendations: full liqui Liquid Recommendations: Thin straws okay Swallowing Precautions: Decreased Bolus 1/2 Tsp, Decreased Rate of Oral Intake, Liquids from Straw, Pocketing, Small Bites and Sips MBS study was completed on 11/26/22 with results of poor oral control and movement, delayed swallow initiation (triggered when bolus reached pyriform sinus) with transient, self-clearing penetration of thin and thickened liquids. Dysphagia Evaluation Summary The pt demonstrated min/mod decrease in oral manipulation, with right side stasis following semisolid trials. She was responsive to cues to close mouth and suck, which was effective in clearing stasis from right cheek/teeth. Anthony cracker trial completed. Mastication completed on left side, with moderate stasis remaining. The pt was able to use cued sucking to clear stasis for swallowing. No s/s aspiration were observed. Speech Senior Living Goals Senior Living Goals The pt will demonstrate fair-good oral control of pureed and soft/ground solids with minimal oral stasis following PO intake. Speech-Plan Patient/Family Goals Patient/Family Goals: PO intake for support of nutritional needs Treatment Plan Speech Therapy Treatment Plan: Continue Plan of Care Frequency: At least 5 of 7 days/Wk (IRF) Estimated Hrs Per Day: 1 hour per day Rehab Potential: Fair Barriers to Learning: Severity of CVA, oral motor planning Pt/Family Agrees to Plan: Yes Safety Risks/Education Teaching Recipient: Patient, Family Teaching Methods: Discussion Response to Teaching: Verbalize Understanding Education Topics Provided: Swallowing, PO intake recommendations Discharge Recommendations Home & Family Time Speech Therapy Time In: 14:10 Speech Therapy Time Out: 14:40 DATE: Nov 30, 2022 Total Billed Time: 30 Billed Treatment Time 1 LORI GANNON Nov 30, 2022 15:40
--- NOTE | 2022-11-30 16:13 | ST Cognitive Linguistic Eval ---
Speech Evaluation-General Medical Diagnosis CVA Onset Date: Nov 22, 2022 Therapy Diagnosis Therapy Diagnosis: Apraxia and aphasia Precautions Precautions/Isolations: Standard Precautions Referral Referring Physician: Dr. oMntoya Reason for Referral: Evaluation/Treatment Medical History Pertinent Medical History: CABG, CAD, COPD, GERD, HTN, Smoking Current History Recent discharge from [facility] on 11/18/22 s/p NSTEMI with coronary stenting. ON 11/22/22 she presented to ED with expressive aphasia, R facial droop and R side weaknes. TNK was administered. MRI showed multiple small bilateral infarcts in the left precentral gyrus-opercular region, anterior left periventricular frontal lobe, right middle frontal gyrus. Pt diagnosed with mild aphasia and severe apraxia, non-verbal. Reviewed History: Yes Social History Current Living Status: Spouse Speech PLF-Current Status Prior Level of Function Independent Language Eval: Auditory Comprehends Simple Yes/No Ques: Mild Ident/Pics in Multiple Mendez: Mild Follows 1-Step Commands: Functional Follows Complex Directions: Mild Follows General Conversations: Mild The pt answered y/n questions with 16/20 accuracy. She was able to follow 1- and 2-step simple commands. Single auditory word recognition was decreased for symbols, numbers, and letters. Language Eval: Verbal Language Completes Spontaneous Greeting: Severe Produces Auto, Serial Info: Severe Imitates Simple Words/Phrases: Moderate Requests Basic Needs: Severe States Basic Personal Info: Severe Expresses Complex Ideas: Severe The pt was able say her 's name and her own name with cloze-sentence cueing. She named 7 objects with semantic and initial-phoneme cues, and named 10 objects with semantic cues only. She was able to repeat the names of her sons. Vocal volume was low, with moderate incoordination of voicing for speech. Language Evaluation: Reading Comprehends Single Nouns: Functional Follows Simple Written Direct: Mild Comprehends Multiple Sentences: Severe Letter identification was poor. The pt was able to read single words and short sentences, with breakdown as words in sentence grew more complex. Language Evaluation: Writing Writes to Simple Dictation: Moderate Writes Personal Information: Moderate Writes Short Phrases: Moderate Writes Detailed Sent/Paragraph: Severe Cognitive Patient Orientation The pt could write her name. She was unable to write her address. Written words to dictation contained duplicate letters and letter errors. The pt attempted sentence writing with poor accuracy. Objective Formal/Standardized Tests Portions of the Western Aphasia Battery. See above. Oral Motor/Speech Production Lingual movement was slow and labored with reduced ROM. Mild groping noted when pt attempted to spontaneously initiate speech. Impression Severe oral and verbal apraxia, with moderate aphasia. Speech Case Work Aide Goals Case Work Aide Goals 1. The pt will produce single words with semantic cues with 80% accuracy. 2. The pt will state basic information re: self with 80% accuracy. 3. The pt will utilize augmentative methods of communication with 80% accuracy for basic needs. 4. The pt will write single words with 80% accuracy. 5. The pt will complete labial and lingual ROM exercises with 80% accuracy. Speech-Plan Treatment Plan Speech Therapy Treatment Plan: Continue Plan of Care Frequency: At least 5 of 7 days/Wk (IRF) Estimated Hrs Per Day: 1 hour per day Rehab Potential: Fair Barriers to Learning: Severity of apraxia Pt/Family Agrees to Plan: Yes Safety Risks/Education Teaching Recipient: Patient, Family Teaching Methods: Discussion Education Topics Provided: Current communication, goals Discharge Recommendations Home & Family Time Speech Therapy Time In: 14:40 Speech Therapy Time Out: 15:10 DATE: Nov 30, 2022 Total Billed Time: 30 Billed Treatment Time 1 LORI ROSENTHAL Nov 30, 2022 16:13
--- NOTE | 2022-11-30 16:26 | Occupational Therapy Eval ---
OT Evaluation-General/PLF Medical Diagnosis Admission Date Nov 30, 2022 at 13:58 Medical Diagnosis: CVA Onset Date: Nov 22, 2022 Therapy Diagnosis Therapy Diagnosis: Decreased R UE weakness and corrdination, decreased ADL independence Height/Weight Height (Feet): 4 Height (Inches): 11.00 Weight (Pounds): 151 Weight (Ounces): 14.8 Precautions Precautions/Isolations: Fall Prevention, Standard Precautions Referral Physician: Jan Medical History Pertinent Medical History: CABG, CAD, COPD, GERD, HTN, Smoking Reviewed History: Yes Social History Home: Single Level Current Living Status: Spouse (Who works away from home for weeks at a time) Entry Into Home: Ramp (with 2 handrails) Steps Into Home: 0 Steps Inside Home: 3 ADL-Prior Level of Function SCALE: Activities may be completed with or without assistive devices. 3-[id number] completes the activity by him/herself with no assistance from a helper. 5-Set-up or Clean-up Assistance-helper sets up or cleans up; patient completes activity. [place] assists only prior to or following the activity. 4-Supervision or Touching Assistance-helper provides verbal cues and/or touching/steadying and/or contact guard assistance as patient completes activity. Assistance may be provided throughout the activity or intermittently. 3-Partial/Moderate Assistance-helper does LESS THAN HALF the effort. [place] lifts, holds or supports trunk or limbs, but provides less than half the effort. 2-Substantial/Maximal Assistance-helper does MORE THAN HALF the effort. [place] lifts or holds trunk or limbs and provides more than half the effort. 5-[id number]-apdbmv does ALL the effort. Patient does none of the effort to complete the activity. Or, the assistance of 2 or more helpers is required for the patient to complete the activity. If activity was not attempted, code reason: 7-Patient Refused. 9-Not Applicable-not attempted and the patient did not perform the activity before the current illness, exacerbation or injury. 10-Not Attempted due to Environmental Limitations-(lack of equipment, weather restraints, etc.). 88-Not Attempted due to Medical Conditions or Safety Concerns. Self Care: Independent Functional Cognition: Independent DME/Equipment: Shower Occupation: retired Drive Self: Yes Leisure Interests: Enjoys sitting outdoors and relaxing OT Current Status Subjective Pt was received in WC and agreeable to therapy at this time. Pain Numeric Pain Scale: 4 Location Body Site: Abdomen Mental Status/Objective Patient Orientation: Person, Place, Time, Situation Attachments: Oxygen (4L), PEG Tube Current Glasses/Contacts: Yes Hearing Aids: No Dentures/Partials: Yes Hand Dominance: Left Upper Extremity ROM WFL Upper Extremity Coordination Decreased coordination in RUE Upper Extremity Sensation WFL Upper Extremity Strength L UE: WFL R UE: Shoulder 4-/5; elbow 4/5, risk control consultant 4-/5 Visual tracking WFL ADL-Treatment Eating (QC): 3 Oral Hygiene (QC): 5 Shower/Bathe Self (QC): 2 Upper Body Dressing (QC): 3 (min assist for threading R arm ) Lower Body Dressing (QC): 3 (Min A for threading legs through brief, was able to independently thread pants and pull up pants) On/Off Footwear (QC): 5 (Able to don and doff house slippers independently, tho ugh required shoes to be moved closer ) Toileting Hygiene (QC): 4 (For pericare in standing ) Other Treatments Pt completed hand and face hygiene independently sitting at sink. Pt completed writing task with white board and marker to increase communication with min cues for object management (cap lid, board, marker and eraser). Pt completed dynamic standing activity with supervision. Co-treatment with PT required due to the need for two skilled clinicians in order achieve high level interventions with optimal safety. OT focus on functional mobility, UE management and strength and independence with ADLs. Education OT Patient Education: Correct positioning, Energy conservation, Modified ADL techniques, Progress toward Goal/Update tx plan, Purpose of tx/functional activities, Reviewed precautions, Rehab process, Safety issues, Use of adapted equipment Teaching Recipient: Patient Teaching Methods: Demonstration, Discussion Response to Teaching: Verbalize Understanding, Return Demonstration BIMS CAM BIMS Expression of Ideas and Wants: Without Difficulty (While using dry erase board) Understanding Verbal Content: Understands Brief Interview/Mental Status: Yes IRF KOBI BIMS: IRF KOBI BIMS Response (Comments) Value Repitition of Three Words Three 3 Recalls Socks Yes, No Cue Required 2 Recalls Blue Yes, No Cue Required 2 Recalls Bed Yes, No Cue Required 2 Year Correct 3 Month Accurate Within 5 Days 2 Day Correct 1 Total 15 Patient Normally Able to Recal: Current Session, Location of own room, Staff Names and faces, That he/she in a hsp Should Staff Asses. Mental St.: Yes Memory/Recall Ability: Current Season, Staff Names and Faces, That He[facility]She in [facility] Mental Status Change/Baseline: 0 Inattention: 0 Disorganized thinkin Altered level of consciousness: 0 OT Short Term Goals Short Term Goals Time Frame: Dec 07, 2022 Eatin Oral hygiene: 5 Toileting hygiene: 5 Shower/bathe self: 4 Upper body dressin Lower body dressin Putting on/taking off footwear: 6 OT Correction Goals Sports Physical Therapist Goals Acute change in mental status: 0 Inattention: 0 Disorganized thinkin Altered level of consciousness: 0 Eating (QC): 6 Oral Hygiene (QC): 6 Toileting Hygiene (QC): 6 Shower/Bathe Self (QC): 6 Upper Body Dressing (QC): 6 Lower Body Dressing (QC): 6 On/Off Footwear (QC): 6 Pt will demonstrate 4/5 RUE strength. 1=Demonstrate adherence to instructed precautions during ADL tasks. 2=Patient will verbalize/demonstrate understanding of assistive devices/modifications for ADL. 3=Patient will improve strength/tolerance for activity to enable patient to perform ADL's. OT Education/Plan Problem List/Assessment Assessment: Decreased Activ Tolerance, Decreased Safety Aware, Decreased UE Strength, Impaired Coordination, Impaired Funct Balance, Impaired I ADL's, Impaired Self-Care Skills Discharge Recommendations Plan/Recommendations: Continue POC Comment Will make equipment recommendation as pt progresses closer to d/c date. Treatment Plan/Plan of Care Treatment,Training & Education: Yes Patient would benefit from OT for education, treatment and training to promote independence in ADL's, mobility, safety and/or upper extremity function for ADL's. Plan of Care: ADL Retraining, Caregiver Training, Concurrent Therapy, Functional Mobility, Group Exercise/Act as Ind, UE Funct Exercise/Act, UE Neuromus Re-Ed/Coord Treatment Duration: Dec 18, 2022 Frequency: At least 5 of 7 days/Wk (IRF) Estimated Hrs Per Day: 1 hour per day Agreement: Yes Rehab Potential: Good Time Start Time: 15:10 ([id number] OT Eval tonia) Stop Time: 16:25 ([id number] OT/PT co-treatment ) DATE: Nov 30, 2022 Total Time Billed (hr/min): 60 Billed Treatment Time 1, EVL, ADL 2, FA 1 Komal Salinas OTR/L Nov 30, 2022 16:26
[2022-11-30] MEDS: ACETAMINOPHEN 325 MG TABLET PO PRN (17:06)
[2022-11-30] MEDS: carvediloL 12.5 MG TABLET NG SCH (17:08)
[2022-11-30] MEDS: hydrALAZINE 25 MG TABLET PO SCH ×2 (17:09→21:47)
[2022-11-30] MEDS ORDERED: FAMOTIDINE ORAL SUSP 40 MG/5 ML 50 ML PEG SCH (21:00)
[2022-11-30] MEDS ORDERED: DOCUSATE SODIUM 100 MG CAPSULE PO SCH (21:00)
[2022-11-30 21:37] VITALS: BP 144/65
[2022-11-30] MEDS: DOCUSATE SODIUM 100 MG/10 ML UDC ORAL SOLN PO SCH (21:47)
[2022-11-30] MEDS: SENNA W/DOCUSATE TABLET PO SCH (21:47)
[2022-11-30] MEDS: PREGABALIN 25 MG CAPSULE PO SCH (21:47)
[2022-12-01 05:58] LABS: BASOPHILS % (AUTO) 1 % (0-10); EOSINOPHILS # (AUTO) 0.2 10^3/uL (0.0-0.3); EOSINOPHILS % (AUTO) 3 % (0-10); HEMATOCRIT 24 % (35-52); HEMOGLOBIN 7.4 g/dL (11.5-16.0); LYMPHOCYTES # (AUTO) 1.5 10^3/uL (1.0-4.0); LYMPHOCYTES % (AUTO) 20 % (12-44); MEAN CORPUSCULAR HEMOGLOBIN 29 pg (25-34); MEAN CORPUSCULAR HGB CONC 31 g/dL (32-36); MEAN CORPUSCULAR VOLUME 95 fL (80-99); MEAN PLATELET VOLUME 12.2 fL (9.0-12.2); MONOCYTES # (AUTO) 0.8 10^3/uL (0.0-1.0); MONOCYTES % (AUTO) 10 % (0-12); NEUTROPHILS # (AUTO) 5.2 10^3/uL (1.8-7.8); NEUTROPHILS % (AUTO) 67 % (42-75); PLATELET COUNT 196 10^3/uL (130-400); WHITE BLOOD COUNT 7.9 10^3/uL (4.3-11.0)
--- NOTE | 2022-12-01 05:59 | PM&R Progress Note ---
Subjective HPI/CC On Admission Date Seen by Provider: Dec 01, 2022 Time Seen by Provider: 09:00 Subjective/Events-last exam 12/01/2022: Patient up and alert Patient doing well Tube feedings tolerated Speech therapy consulted Overall weakness improved Review of Systems General: Fatigue, Malaise Objective Exam Vital Signs Vital Signs Date Time Temp Pulse Resp B/P (MAP) Pulse Ox O2 Delivery O2 Flow Rate FiO2 12/01/22 18:16 74 171/66 (101) 12/01/22 11:10 Nasal Cannula 4.00 12/01/22 08:00 36.2 18 95 Capillary Refill : General Appearance: No Apparent Distress, WD/WN, Chronically ill, Obese HEENT: PERRL/EOMI, TMs Normal, Normal ENT Inspection, Pharynx Normal Neck: Full Range of Motion, Normal Inspection, Non Tender, Supple, Carotid Bruit Respiratory: Chest Non Tender, Lungs Clear, Normal Breath Sounds, No Accessory Muscle Use, No Respiratory Distress Cardiovascular: Regular Rate, Rhythm, No Edema, No Gallop, No JVD, No Murmur, Normal Peripheral Pulses Gastrointestinal: Normal Bowel Sounds, No Organomegaly, No Pulsatile Mass, Non Tender, Soft Back: Normal Inspection, No CVA Tenderness, No Vertebral Tenderness Extremity: Normal Capillary Refill, Normal Inspection, Normal Range of Motion, Non Tender, No Calf Tenderness, No Pedal Edema Neurologic/Psychiatric: Alert, Oriented x3, Normal Mood/Affect, Aphasia, Depressed Affect, Facial Droop ( right), Motor Weakness ( right-sided) Skin: Normal Color, Warm/Dry Lymphatic: No Adenopathy Results/Procedures Lab Laboratory Tests 12/01/22 05:38 Patient resulted labs reviewed. FIM Transfers Therapy Code Descriptions/Definitions Functional [place] Measure: 0=Not Assessed/NA 4=Minimal Assistance 1=Total Assistance 5=Supervision or Setup 2=Maximal Assistance 6=Modified [place] 3=Moderate Assistance 7=Complete IndependenceSCALE: Activities may be completed with or without assistive devices. 3-[id number]-[id number] completes the activity by him/herself with no assistance from a helper. 5-Set-up or Clean-up Assistance-helper sets up or cleans up; patient completes activity. [place] assists only prior to or following the activity. 4-Supervision or Touching Assistance-helper provides verbal cues and/or touching/steadying and/or contact guard assistance as patient completes activity. Assistance may be provided throughout the activity or intermittently. 3-Partial/Moderate Assistance-helper does LESS THAN HALF the effort. [place] lifts, holds or supports trunk or limbs, but provides less than half the effort. 2-Substantial/Maximal Assistance-helper does MORE THAN HALF the effort. [place] lifts or holds trunk or limbs and provides more than half the effort. 5-Jkdrkidsh-airnln does ALL the effort. Patient does none of the effort to complete the activity. Or, the assistance of 2 or more helpers is required for the patient to complete the activity. If activity was not attempted, code reason: 7-Patient Refused. 9-Not Applicable-not attempted and the patient did not perform the activity before the current illness, exacerbation or injury. 10-Not Attempted due to Environmental Limitations-(lack of equipment, weather restraints, etc.). 88-Not Attempted due to Medical Conditions or Safety Concerns. Roll Left to Right (QC): 4 (SBA ) Sit to Lying (QC): 4 (SBA ) Sit to Stand (QC): 4 (SBA ) Chair/Qch-ow-Hisuc Xfer(QC): 4 (SBA ) Car Transfer (QC): 4 (SBA ) Gait Training Does the Patient Walk?: Yes Walk 10 feet (QC): 4 (CGA ) Walk 50 ft with 2 Turns(QC): 4 (CGA ) Walk 150 ft (QC): 88 (Decreased endurance ) Walking 10ft/uneven surface-QC: 4 (CGA ) Gait Assistive Device: FWW Wheelchair Training Does the Pt Use a Wheelchair?: No Wheel 50 ft with 2 turns (QC): 9 Wheel 150 ft (QC): 9 Type of Wheelchair: N/A Stair Training #of Steps: 12 1 Step (curb) (QC): 4 (CGA ) 4 Steps (QC): 4 (CGA ) 12 Steps (QC): 4 (CGA ) Balance Picking up an Object (QC): 4 (CGA with physical security engineer ) ADL-Treatment Eating (QC): 3 Oral Hygiene (QC): 5 Shower/Bathe Self (QC): 2 Upper Body Dressing (QC): 3 (min assist for threading R arm ) Lower Body Dressing (QC): 3 (Min A for threading legs through brief, was able to independently thread pants and pull up pants) On/Off Footwear (QC): 5 (Able to don and doff house slippers independently, though required shoes to be moved closer ) Toileting Hygiene (QC): 4 (For pericare in standing ) Assessment/Plan Assessment and Plan Assess & Plan/Chief Complaint Assessment: Bilateral ischemic strokes status post thrombolytics with residual aphasia and dysphagia status post PEG tube placement Severe multivessel CAD status post recent high risk intervention at on 11/18/2022 Recent NSTEMI HTN Hx CAD w/ CABG: CABG done in 2011 COPD: O2 dependent Hypercalcemia: obtain PTH, spot urine calcium, ionized calcium, vitamin D levels Angina: none currently, nitro PRN Hypomagnesemia: started on Mg replacement, continue to monitor, replace as needed HLD: resume home statin GERD: currently asymptomatic, antacids as needed Plan: PT and OT Lovenox for DVT prophylaxis PEG tube feeding Speech therapy 12/01/2022: Aggressive rehab Speech therapy Tube feedings (1) CVA (cerebral vascular accident) LORENA OSULLIVAN DO Dec 01, 2022 05:59
--- NOTE | 2022-12-01 05:59 | Individualized Plan of Care ---
Individualized Plan of Care Rehab Nursing IPOC Order Admission Date Nov 30, 2022 at 13:58 Current Orders Orders Admission Order(Inpt,Obs,Sdc) (11/30/22 11:49) Vital Signs: Per Unit Policy ( 08,16,00 (11/30/22 11:49) Wood Tellez 09,21 (11/30/22 11:49) Sequential Compression Device [id number] (11/30/22 11:49) Train Brake Operator-Inpt Rehab Con (11/30/22 11:49) Rehab Nursing Orders-Ipoc (11/30/22 11:49) Physical Therapy Rehab Orders (11/30/22 11:49) Occupational Therapy Rehab Ord (11/30/22 11:49) Speech Therapy Rehab Orders (11/30/22 11:49) Cbc And Automated Diff (12/01/22 06:00) Comprehensive Metabolic Panel (12/01/22 06:00) Precautions (Aru) (11/30/22 11:49) Weekly Weight WEEK (11/30/22 11:49) Rehab-Intensity Of Therapy (11/30/22 11:49) Initiate Admission Nursing Pro .admission (11/30/22 11:49) Alprazolam Tablet (Alprazolam Tablet) (11/30/22 12:00) Calcium Carbonate Chew Tablet (Calcium C (11/30/22 12:00) Diphenhydramine Tablet (Diphenhydramine (11/30/22 12:00) Docusate Sodium Capsule (Docusate Sodium (11/30/22 21:00) Docusate Sodium Capsule (Docusate Sodium (11/30/22 12:00) Bisacodyl Suppository (Bisacodyl Supposi (11/30/22 12:00) Lactulose Oral Solution (Enulose Oral So (11/30/22 12:00) Na Phos/Na Biphos Adult Enema (Na Phos/N (11/30/22 12:00) Guaifenesin/Codeine Syrup (Guaifenesin/C (11/30/22 12:00) Loperamide Capsule (Loperamide Capsule) (11/30/22 12:00) Melatonin Tablet (Melatonin Tablet) (11/30/22 12:00) Polyethylene Glycol Powder (Polyethylen (11/30/22 21:00) Ondansetron Oral Dissolve Tab (Ondanset (11/30/22 12:00) Senna W/Docusate Tablet (Senna W/Docusat (11/30/22 21:00) Acetaminophen Tablet (Acetaminophen Ta (11/30/22 12:00) Initiate Admission Nursing Pro .admission (11/30/22 11:49) Admission Arrival Bed Request (11/30/22 13:58) Patient Visit (11/30/22 ) Speech Sound Lang Comp (11/30/22 ) Aspirin Enteric Coated Tablet (Ecotrin T (12/01/22 09:00) Atorvastatin Tablet (Atorvastatin Tablet (11/30/22 21:00) Vitamin D3 Tablet (Vitamin D3 Tablet) (12/01/22 09:00) Clonidine Patch (Clonidine Patch) (11/30/22 12:30) Clonidine Tablet (Clonidine Tablet) (11/30/22 14:45) Clopidogrel Tablet (Clopidogrel Tablet) (12/01/22 09:00) Diazepam Tablet (Diazepam Tablet) (11/30/22 14:45) Docusate Sodium Oral Solution (Docusate (11/30/22 21:00) Famotidine Oral Suspension (Famotidine O (11/30/22 21:00) Ferrous Sulfate Tablet (Ferrous Sulfate (12/01/22 09:00) Hydralazine Tablet (Hydralazine Tablet (11/30/22 14:00) Lisinopril Tablet (Lisinopril Tablet) (12/01/22 09:00) Nitroglycerin 0.4 Mg Btl 25's (Nitroglyc (11/30/22 14:45) Pregabalin Capsule (Pregabalin Capsule) (11/30/22 21:00) Topiramate Tablet (Topamax Tablet) (12/01/22 09:00) Carvedilol Tablet (Carvedilol Tablet) (11/30/22 18:00) Meloxicam Tablet (Meloxicam Tablet) (12/01/22 09:00) Spironolactone Tablet (Spironolactone Ta (12/01/22 09:00) Enoxaparin Injection (Enoxaparin Injecti (12/01/22 09:00) Albuterol Hfa Inhaler (Albuterol Hfa Inh (11/30/22 15:00) Feeding Tube Connector Cleanin Q8H (11/30/22 16:32) Tube Feeding Assessment Q6H (11/30/22 16:32) Tube Feeding (Diet) QID (11/30/22 18:29) Famotidine Oral Suspension (Famotidine O (12/01/22 09:00) Iron Test (Fe) (12/01/22 08:56) Vitamin B 12 (12/01/22 08:56) Patient Visit (11/30/22 ) Pt Eval Moderate Complexity (11/30/22 ) Functional Activities, Ea 15 (11/30/22 ) Gait Training, Ea 15 Min (11/30/22 ) Aspirin Chewable Tablet (Aspirin Chewabl (12/01/22 09:00) Patch Removal (Patch Removal) (12/08/22 12:29) Patient Visit (12/01/22 ) Functional Activities, Ea 15 (12/01/22 ) Gait Training, Ea 15 Min (12/01/22 ) Exercise Therap, Ea 15 Min (12/01/22 ) Patient Visit (11/30/22 ) Dysphagia Evaluation Std (11/30/22 ) Patient Visit (12/01/22 ) Treat. Speech/Lang/Voice (12/01/22 ) Dysphagia Therapy (12/01/22 ) Patient Visit (12/01/22 ) Treat. Speech/Lang/Voice (12/01/22 ) Dysphagia Therapy (12/01/22 ) Nothing By Mouth (12/01/22 Dinner) Patient Visit (12/02/22 ) Functional Activities, Ea 15 (12/02/22 ) Exercise Therap, Ea 15 Min (12/02/22 ) Patient Visit (12/02/22 ) Treat. Speech/Lang/Voice (12/02/22 ) Patient Visit (12/02/22 ) Dysphagia Therapy (12/02/22 ) Patient Visit (12/02/22 ) Treat. Speech/Lang/Voice (12/02/22 ) Rehab Nursing Orders: Ongoing Assess. of Cognitive Status, Ongoing Assess. of Function Status, Bladder Management, Bladder Scan, Bladder Training, Bowel Management, Bowel Training, Disease Management & Educaiton, DVT Prophylaxis, Fall Prevention, Fluid/Electrolyte/Nutrition Mgmt, Infection Prevention, Medication Management & Education, Management of Risks & Complications, Management of Skin Intergrity, Nutrition Management, Pain Management, Patient/Family Support, Safety Management, Swallow Precautions, Weight Bearing Precaution, Wound Management Intensity of Therapy to be met Patient to be seen: Min.3h per day/5 of 7d PT IPOC Problem List: Activity Tolerance, Functional Strength, Safety, Balance, Gait, Transfer, Bed Mobility, ROM Treatment Plan: Continue Plan of Care Bed Mobility, Education, Functional Activity Lou, Functional Strength, Group Therapy, Gait, Safety, Therapeutic Exercise, Transfers Treatment Duration: Dec 21, 2022 Frequency: At least 5 of 7 days/Wk (IRF) Estimated Hrs Per Day: 1 hour per day OT IPOC Problems: Decreased Activ Tolerance, Decreased Safety Aware, Decreased UE Strength, Impaired Coordination, Impaired Funct Balance, Impaired I ADL's, Impaired Self-Care Skills OT Treatment, Training and Edu: Yes Plan of Care: ADL Retraining, Caregiver Training, Concurrent Therapy, Functional Mobility, Group Exercise/Act as Ind, UE Funct Exercise/Act, UE Neuromus Re-Ed/Coord Treatment Duration: Dec 18, 2022 Frequency: At least 5 of 7 days/Wk (IRF) Estimated Hrs Per Day: [address] IPOC Speech Therapy Treatment Plan: Continue Plan of Care Treatment Duration: Dec 01, 2022 Frequency: At least 5 of 7 days/Wk (IRF) Estimated Hrs Per Day: 1 hour per day Train Brake Operator/Case Mgmt Train Brake Operator/Case Managemen: Discharge Planning Dietitian/Teletypewriter Installer Dietitian/Teletypewriter Installer to monitor nutritional status and make changes and/or recommendations as needed and work with speech pathology on dietary upgrades as the occur. Physician IPOC Medical Issues being managed closely and that require the 24 hour availability of a physician: Recent CVA with aphasia and expressive aphasia and dysphagia requiring PEG tube placement will be at high risk for aspiration and decompensation Medical Issues: Bowel/Bladder Function, DVT Prophylaxis, Falls Precautions, Fluid/Electrolyte/Nutrition Balance, Infection Protection, Pain Management, S wallowing Precautions, Weight Bearing Precautions, Wound Care Brief Synthesis of Preadmission Screen, Post-Admission Evaluation, and Therapy Evaluations: PT and OT will focus on regaining function with the use of assistive devices in order to regain function and increase stamina and independence in ADLs in order to return home speech therapy will work on dysphagia Medical Prognosis: Fair Anticipated Length of Stay: 14 days LORENA OSULLIVAN DO Dec 01, 2022 05:59
[2022-12-01] MEDS: hydrALAZINE 25 MG TABLET PO SCH ×3 (06:05→21:23)
[2022-12-01 06:20] LABS: ALBUMIN 3.2 GM/DL (3.2-4.5); BILIRUBIN,TOTAL 0.3 MG/DL (0.1-1.0); CALCIUM 9.7 MG/DL (8.5-10.1); CREATININE SERUM 0.95 MG/DL (0.60-1.30); POTASSIUM 4.4 MMOL/L (3.6-5.0); TOTAL PROTEIN 5.8 GM/DL (6.4-8.2)
[2022-12-01 08:00] VITALS: BP_SYST 118; BP_SYST 145; BP_DIAS 59; BP_DIAS 66
[2022-12-01] MEDS ORDERED: ASPIRIN enteric coated 81MG TABLET PO SCH (09:00)
--- NOTE | 2022-12-01 09:10 | Occupational Ther Daily Note ---
OT Current Status-Daily Note Subjective Pt was received lying supine in bed and was agreeable to therapy. Pain Numeric Pain Scale: 3 Location Body Site: Abdomen Pain Description: Ache Mental Status/Objective Patient Orientation: Person, Place, Time, Situation Attachments: Oxygen (4L), PEG Tube ADL-Treatment Therapy Code Descriptions/Definitions Functional [place] Measure: 0=Not Assessed/NA 4=Minimal Assistance 1=Total Assistance 5=Supervision or Setup 2=Maximal Assistance 6=Modified [place] 3=Moderate Assistance 7=Complete IndependenceSCALE: Activities may be completed with or without assistive devices. 8-Dewlnyjbqt-ijaxcub completes the activity by him/herself with no assistance from a helper. 5-Set-up or Clean-up Assistance-helper sets up or cleans up; patient completes activity. [place] assists only prior to or following the activity. 4-Supervision or Touching Assistance-helper provides verbal cues and/or touching/steadying and/or contact guard assistance as patient completes activity. Assistance may be provided throughout the activity or intermittently. 3-Partial/Moderate Assistance-helper does LESS THAN HALF the effort. [place] lifts, holds or supports trunk or limbs, but provides less than half the effort. 2-Substantial/Maximal Assistance-helper does MORE THAN HALF the effort. [place] lifts or holds trunk or limbs and provides more than half the effort. 9-Soqvjypab-vfhafg does ALL the effort. Patient does none of the effort to complete the activity. Or, the assistance of 2 or more helpers is required for the patient to complete the activity. If activity was not attempted, code reason: 7-Patient Refused. 9-Not Applicable-not attempted and the patient did not perform the activity before the current illness, exacerbation or injury. 10-Not Attempted due to Environmental Limitations-(lack of equipment, weather restraints, etc.). 88-Not Attempted due to Medical Conditions or Safety Concerns. Oral Hygiene (QC): 5 Upper Body Dressing (QC): 5 (Required clothing gathering, donned and doffed independently) Lower Body Dressing (QC): 3 (Required min A to thread legs through pants, independent with pulling up and doffing pants. Independent with donning and doffing brief in sitting) On/Off Footwear: 5 (Required slippers be moved closer, independent with donning and doffing. ) Toileting Hygiene (QC): 4 Toilet Transfer (QC): 4 Other Treatment Pt completed morning routine in standing with SBA/min A. Pt completed functional mobility with SBA and FWW requiring min cues for safety and navigation around unit. Completed writing activity with focus on legibility in order to increase communication. Emphasized the use of large print instead of cursive to increase legibility and reader understanding. Completed fine motor activity targeting finger isolation, emphasizing the use of the R hand in order to increase indepen dence with ADLs and IADLs. Education OT Patient Education: Correct positioning, Energy conservation, Modified ADL techniques, Progress toward Goal/Update tx plan, Purpose of tx/functional activities, Rehab process, Safety issues, Transfer techniques Teaching Recipient: Patient Teaching Methods: Demonstration, Discussion Response to Teaching: Verbalize Understanding, Return Demonstration OT Short Term Goals Short Term Goals Time Frame: Dec 07, 2022 Eatin Oral hygiene: 5 Toileting hygiene: 5 Shower/bathe self: 4 Upper body dressin Lower body dressin Putting on/taking off footwear: 6 OT Care Home Goals Care Home Goals Acute change in mental status: 0 Inattention: 0 Disorganized thinkin Altered level of consciousness: 0 Eating (QC): 6 Oral Hygiene (QC): 6 Toileting Hygiene (QC): 6 Shower/Bathe Self (QC): 6 Upper Body Dressing (QC): 6 Lower Body Dressing (QC): 6 On/Off Footwear (QC): 6 Pt will demonstrate 4/5 RUE strength. 1=Demonstrate adherence to instructed precautions during ADL tasks. 2=Patient will verbalize/demonstrate understanding of assistive devices/modifications for ADL. 3=Patient will improve strength/tolerance for activity to enable patient to perform ADL's. OT Education/Plan Problem List/Assessment Assessment: Decreased Activ Tolerance, Decreased Safety Aware, Decreased UE Strength, Impaired Coordination, Impaired Funct Balance, Impaired I ADL's, Impaired Self-Care Skills Discharge Recommendations Plan/Recommendations: Continue POC Treatment Plan/Plan of Care Treatment,Training & Education: Yes Patient would benefit from OT for education, treatment and training to promote independence in ADL's, mobility, safety and/or upper extremity function for ADL's. Plan of Care: ADL Retraining, Caregiver Training, Concurrent Therapy, Functional Mobility, Group Exercise/Act as Ind, UE Funct Exercise/Act, UE Neuromus Re-Ed/Coord Treatment Duration: Dec 18, 2022 Frequency: At least 5 of 7 days/Wk (IRF) Estimated Hrs Per Day: 1 hour per day Agreement: Yes Rehab Potential: Good Time Start Time: 07:50 Stop Time: 08:50 DATE: Dec 01, 2022 Total Time Billed (hr/min): 60 Billed Treatment Time 1, ADL 3, FA 1 Komal Salinas OTR/L Dec 01, 2022 09:10
[2022-12-01] MEDS: MELOXICAM 7.5 MG TABLET PO SCH (09:14)
[2022-12-01] MEDS: VITAMIN D3 25 MCG (1,000 UNITS) TABLET PO SCH (09:14)
[2022-12-01] MEDS: PREGABALIN 25 MG CAPSULE PO SCH ×3 (09:14→21:23)
[2022-12-01] MEDS: carvediloL 12.5 MG TABLET NG SCH ×2 (09:14→18:15)
[2022-12-01] MEDS: ASPIRIN 81 MG CHEWABLE TABLET PO SCH (09:14)
[2022-12-01] MEDS: CLOPIDOGREL 75 MG TABLET PO SCH (09:14)
[2022-12-01] MEDS: FERROUS SULFATE 325 MG (IRON) TABLET PO SCH (09:14)
[2022-12-01] MEDS: toPIRamate 25 MG (TOPAMAX) TAB PO SCH (09:14)
[2022-12-01] MEDS: SPIRONOLACTONE 25 MG TABLET PO SCH (09:14)
[2022-12-01] MEDS: ENOXAPARIN 40 MG/0.4 ML SYRINGE SC SCH (09:15)
[2022-12-01] MEDS: SENNA W/DOCUSATE TABLET PO SCH ×2 (09:25→21:23)
[2022-12-01] MEDS: DOCUSATE SODIUM 100 MG/10 ML UDC ORAL SOLN PO SCH ×2 (09:25→21:00)
[2022-12-01] MEDS: FAMOTIDINE ORAL SUSP 40 MG/5 ML 50 ML PEG SCH (10:50)
--- NOTE | 2022-12-01 10:50 | Speech Therapy Daily Note ---
Speech Daily Progress Note Subjective Date Seen by Provider: Dec 01, 2022 Time Seen by Provider: 09:40 The pt was awake and alert, with good participation in session. Objective Swallowing: trial of soft scrambled eggs and banana was provided. The pt was able to place bolus on left side of mouth on 60% of boluses for mastication. With bolus on left, the pt was able to masticate and achieve A-P lingual transport with extra time needed. The pt was unable to control or retrieve any bolus from the right oral cavity, requiring finger sweep to clear. The pt c/o stomach pain related to tube site. Language: The pt was able to state her name, and family member names with good accuracy. The pt was able to name 7/10 room items independently. She stated function of items with 40% accuracy, perseverative responses were observed. Call light practice completed. The pt rehearsed scripts for wanting to go to bed, being cold, and having pain. She then used her call light and reported need to ACQUISITIONS EDITOR as practiced in scripting with 50% accuracy. Writing single words for basic needs was targeted, with 80% accuracy for word approximation (spelled closely enough to be recognized). Assessment Assessment Current Status: Good Progress, Fair Progress The pt demonstrates progress with oral bolus control on left, and continues with increased word production. Treatment Plan Continue Plan of Care Speech [facility] Goals [employer] Practitioner Goals 1. The pt will produce single words with semantic cues with 80% accuracy. 2. The pt will state basic information re: self with 80% accuracy. 3. The pt will utilize augmentative methods of communication with 80% accuracy for basic needs. 4. The pt will write single words with 80% accuracy. 5. The pt will complete labial and lingual ROM exercises with 80% accuracy. Speech-Plan Treatment Plan Speech Therapy Treatment Plan: Continue Plan of Care Frequency: At least 5 of 7 days/Wk (IRF) Estimated Hrs Per Day: 1 hour per day Rehab Potential: Good Time Speech Therapy Time In: 09:40 Speech Therapy Time Out: 10:20 DATE: Dec 01, 2022 Total Billed Time: 40 Billed Treatment Time 1 SLTS (20 min), 1 DYST (20 min) LORI PINEDO Dec 01, 2022 10:50
--- NOTE | 2022-12-01 11:04 | Physical Therapy Daily Note ---
PT Daily Note-Current Subjective Pt sitting in recliner upon arrival. Pt working w/ST and gas flow regulator interrupts at 1020 as PT to start at 1000. Pt agrees to PT. ST will make-up additional 20 mins missed. Pain Numeric Pain Scale: 5-Moderate Pain Location: Incisional Location Body Site: Abdomen Pain Description: Ache Section J - Health Conditions 1. Rarely or not at all 2. Occasionally 3. Frequently 4. Almost constantly 8. Unable to answer Pain Effect on Sleep: 2 Pain Interference with Therapy: 2 Pain Interference w/Day-to-Day: 2 Mental Status Patient Orientation: Person, Place, Non-Verbal/Aphasic Attachments: Other-See Comments (Dry Erase Board to Communicate) Transfers SCALE: Activities may be completed with or without assistive devices. 4-Bytcwrccbu-uwyceff completes the activity by him/herself with no assistance from a helper. 5-Set-up or Clean-up Assistance-helper sets up or cleans up; patient completes activity. [place] assists only prior to or following the activity. 4-Supervision or Touching Assistance-helper provides verbal cues and/or touching/steadying and/or contact guard assistance as patient completes activity. Assistance may be provided throughout the activity or intermittently. 3-Partial/Moderate Assistance-helper does LESS THAN HALF the effort. [place] lifts, holds or supports trunk or limbs, but provides less than half the effort. 2-Substantial/Maximal Assistance-helper does MORE THAN HALF the effort. [place] lifts or holds trunk or limbs and provides more than half the effort. 0-Cszimlhja-twrpxk does ALL the effort. Patient does none of the effort to complete the activity. Or, the assistance of 2 or more helpers is required for the patient to complete the activity. If activity was not attempted, code reason: 7-Patient Refused. 9-Not Applicable-not attempted and the patient did not perform the activity be fore the current illness, exacerbation or injury. 10-Not Attempted due to Environmental Limitations-(lack of equipment, weather restraints, etc.). 88-Not Attempted due to Medical Conditions or Safety Concerns. Sit to Stand (QC): 4 Weight Bearing Right Lower Extremity: Right Full Weight Bearing Left Lower Extremity: Left Full Weight Bearing Gait Training Does the Patient Walk?: Yes Distance: 125' Walk 10 feet (QC): 5 Walk 50 ft with 2 Turns(QC): 5 Walk 150 ft (QC): 4 Gait Assistive Device: FWW VC at times for directions & sequencing but these are minimal Exercises Seated Therapy Exercises: Ankle pumps, Long arc quads, Hip flexion, Hip abd/add, Glut set Seated Reps: 15 Treatments Pt TF to standing and amb to BR. After toileting, pt amb to Therapy Gym. Pt completes Seated Ex although reports Abd. pain. This is communicated to Nurse and pt returns to room to rest in recliner to have PEG tube checked by Nurse. All needs met, call light in hand. Assessment Current Status: Fair Progress Pain limits tx today. PT Custodial Goals Custodial Goals PT Solution Designer Goals Time Frame: Dec 21, 2022 Roll Left & Right (QC): 6 (Pt will be Mod I with functional mobility ) Sit to Lying (QC): 6 (Pt will be Mod I with functional mobility ) Lying-Sitting on Side/Bed(QC): 6 (Pt will be Mod I with functional mobility ) Sit to Stand (QC): 6 (Pt will be Mod I with functional mobility ) Chair/Tch-qh-Gobma Xfer(QC): 6 (Pt will be Mod I with functional mobility ) Toilet Transfer (QC): 6 (Pt will be Mod I with functional mobility ) Car Transfer (QC): 6 (Pt will be Mod I with functional mobility ) Does the Patient Walk: Yes Walk 10 feet (QC): 6 (Pt will be Mod I with functional mobility ) Walk 50ft with 2 Turns (QC): 6 (Pt will be Mod I with functional mobility ) Walk 150 ft (QC): 6 (Pt will be Mod I with functional mobility ) Walking 10ft on Uneven Surface: 6 (Pt will be Mod I with functional mobility ) 1 Step (curb) (QC): 6 (Pt will be Mod I with functional mobility ) 4 Steps (QC): 6 (Pt will be Mod I with functional mobility ) 12 Steps (QC): 6 (Pt will be Mod I with functional mobility ) Picking up an Object (QC): 6 (Pt will be Mod I with functional mobility (with meat cutter) ) Does the Pt use WC or Scooter?: No Wheel 50 feet with 2 turns (QC: 9 Type: N/A Wheel 150 feet: 9 Type: N/A PT Plan Problem List Problem List: Activity Tolerance Treatment/Plan Treatment Plan: Continue Plan of Care Treatment Plan: Bed Mobility, Education, Functional Activity Lou, Functional Strength, Group Therapy, Gait, Safety, Therapeutic Exercise, Transfers Treatment Duration: Dec 21, 2022 Frequency: At least 5 of 7 days/Wk (IRF) Estimated Hrs Per Day: 1 hour per day Patient and/or Family Agrees t: Yes Safety Risks/Education Patient Education: Gait Training, Correct Positioning Teaching Recipient: Patient Teaching Methods: Discussion Response to Teaching: Verbalize Understanding Time Time In: 1020 Time Out: 1100 DATE: Dec 01, 2022 Total Billed Treatment Time: 40 Total Billed Treatment 1, FA (10m), GT (15m) & EX (15m) KING CLAY TIERCE FILLER Dec 01, 2022 11:04
[2022-12-01 14:03] VITALS: BP 189/83
--- NOTE | 2022-12-01 14:17 | Speech Therapy Daily Note ---
Speech Daily Progress Note Subjective Date Seen by Provider: Dec 01, 2022 Time Seen by Provider: 13:05 The pt was awake and alert, though appeared tired and fatigued. She had c/o pain around her PEG site that worsened while eating. Pain Numeric Pain Scale: 6 Location Body Site: Abdomen Objective Swallowing: PO trial of soft green beans and mashed potatoes/gravy was provided. The pt was able to follow directions to place food boluses on the left side of oral cavity, with adequate mastication, bolus formation and propulsion noted. Intermittent right lateral stasis was noted, the pt was able to clear w ithout finger sweep. As she ate, the pt appeared to have increased pain, indicating "6" on written scale. The pt refused further intake due to pain, overall intake equaled 5 bites of beans and 4 bites of potatoes. Nsg informed, will administer full TF bolus and meds at this time. Language: The pt required increased assist for verbalizations this p.m. She was able to independently say "bed" to request to go back to bed. She was able to imitate 9/10 words of common room items. The pt's laptop was set up. She was unable to navigate with use of mouse, and unable to orient fingers to keyboard. Single words were targeted for call light use. The pt was 50% accurate communicating rehearsed requests in conjunction with call light. Speech Middleware Engineer Goals [facility] Goals 1. The pt will produce single words with semantic cues with 80% accuracy. 2. The pt will state basic information re: self with 80% accuracy. 3. The pt will utilize augmentative methods of communication with 80% accuracy for basic needs. 4. The pt will write single words with 80% accuracy. 5. The pt will complete labial and lingual ROM exercises with 80% accuracy. Speech-Plan Treatment Plan Speech Therapy Treatment Plan: Continue Plan of Care Frequency: At least 5 of 7 days/Wk (IRF) Estimated Hrs Per Day: 1 hour per day Rehab Potential: Good Discharge Recommendations Home & Family Time Speech Therapy Time In: 13:05 Speech Therapy Time Out: 13:50 DATE: Dec 01, 2022 Total Billed Time: 45 Billed Treatment Time 1 SLTS (25 min) 1 DYST (20 min) LORI PINEDO Dec 01, 2022 14:16
[2022-12-01 18:16] VITALS: BP 171/66
[2022-12-01 20:45] VITALS: BP 155/67
[2022-12-02 05:39] VITALS: BP 168/68
[2022-12-02] MEDS: hydrALAZINE 25 MG TABLET PO SCH ×3 (05:53→21:38)
[2022-12-02 08:00] VITALS: BP 164/71
[2022-12-02] MEDS: carvediloL 12.5 MG TABLET NG SCH ×2 (08:01→17:50)
[2022-12-02] MEDS: CLOPIDOGREL 75 MG TABLET PO SCH (08:01)
[2022-12-02] MEDS: VITAMIN D3 25 MCG (1,000 UNITS) TABLET PO SCH (08:02)
[2022-12-02] MEDS: ENOXAPARIN 40 MG/0.4 ML SYRINGE SC SCH (08:02)
[2022-12-02] MEDS: PREGABALIN 25 MG CAPSULE PO SCH ×3 (08:02→21:38)
[2022-12-02] MEDS: ASPIRIN 81 MG CHEWABLE TABLET PO SCH (08:02)
[2022-12-02] MEDS: MELOXICAM 7.5 MG TABLET PO SCH (08:02)
[2022-12-02] MEDS: FERROUS SULFATE 325 MG (IRON) TABLET PO SCH (08:02)
[2022-12-02] MEDS: toPIRamate 25 MG (TOPAMAX) TAB PO SCH (08:02)
[2022-12-02] MEDS: cloNIDine 0.1 MG TABLET PO PRN ×2 (08:02→13:46)
[2022-12-02] MEDS: SPIRONOLACTONE 25 MG TABLET PO SCH (09:25)
[2022-12-02] MEDS: FAMOTIDINE ORAL SUSP 40 MG/5 ML 50 ML PEG SCH (09:25)
[2022-12-02] MEDS: SENNA W/DOCUSATE TABLET PO SCH ×2 (09:26→21:33)
[2022-12-02] MEDS: DOCUSATE SODIUM 100 MG/10 ML UDC ORAL SOLN PO SCH ×2 (09:26→21:32)
--- NOTE | 2022-12-02 09:38 | Occupational Ther Daily Note ---
OT Current Status-Daily Note Subjective Pt was received lying supine in bed with spouse at bedside. Pt was agreeable to therapy. Pain Numeric Pain Scale: 3 Location Body Site: Abdomen Pain Description: Dull Mental Status/Objective Patient Orientation: Person, Place, Time, Situation Attachments: Oxygen (3L), PEG Tube ADL-Treatment Therapy Code Descriptions/Definitions Functional [place] Measure: 0=Not Assessed/NA 4=Minimal Assistance 1=Total Assistance 5=Supervision or Setup 2=Maximal Assistance 6=Modified [place] 3=Moderate Assistance 7=Complete IndependenceSCALE: Activities may be completed with or without assistive devices. 4-Icroxjoqlh-bvysypd completes the activity by him/herself with no assistance from a helper. 5-Set-up or Clean-up Assistance-helper sets up or cleans up; patient completes activity. [place] assists only prior to or following the activity. 4-Supervision or Touching Assistance-helper provides verbal cues and/or touching/steadying and/or contact guard assistance as patient completes activity. Assistance may be provided throughout the activity or intermittently. 3-Partial/Moderate Assistance-helper does LESS THAN HALF the effort. [place] lifts, holds or supports trunk or limbs, but provides less than half the effort. 2-Substantial/Maximal Assistance-helper does MORE THAN HALF the effort. [place] lifts or holds trunk or limbs and provides more than half the effort. 3-Krfaakxca-hnfifc does ALL the effort. Patient does none of the effort to complete the activity. Or, the assistance of 2 or more helpers is required for the patient to complete the activity. If activity was not attempted, code reason: 7-Patient Refused. 9-Not Applicable-not attempted and the patient did not perform the activity before the current illness, exacerbation or injury. 10-Not Attempted due to Environmental Limitations-(lack of equipment, weather restraints, etc.). 88-Not Attempted due to Medical Conditions or Safety Concerns. Oral Hygiene (QC): 5 Upper Body Dressing (QC): 6 Lower Body Dressing (QC): 3 (Pt requiring assistance to therad legs into pants) On/Off Footwear: 6 Toileting Hygiene (QC): 4 (Pt completed hygiene in standing with supervision. ) Toilet Transfer (QC): 4 Other Treatment Pt completed fine motor activities emphasizing use of RUE to increase coordination, sequencing and fine motor control. Pt completed 2x10 RUE strengthening ex's including bicep curls and wrist curls with 1#. Pt complete functional mobility and navigation tasks with minimal cues for safety and accuracy. Education OT Patient Education: Correct positioning, Energy conservation, Modified ADL techniques, Progress toward Goal/Update tx plan, Purpose of tx/functional activities, Rehab process, Safety issues, Use of adapted equipment Teaching Recipient: Patient Teaching Methods: Demonstration, Discussion Response to Teaching: Verbalize Understanding, Return Demonstration OT Short Term Goals Short Term Goals Time Frame: Dec 07, 2022 Eatin Oral hygiene: 5 Toileting hygiene: 5 Shower/bathe self: 4 Upper body dressin Lower body dressin Putting on/taking off footwear: 6 OT Inside Meter Tester Goals Care Home Goals Acute change in mental status: 0 Inattention: 0 Disorganized thinkin Altered level of consciousness: 0 Eating (QC): 6 Oral Hygiene (QC): 6 Toileting Hygiene (QC): 6 Shower/Bathe Self (QC): 6 Upper Body Dressing (QC): 6 Lower Body Dressing (QC): 6 On/Off Footwear (QC): 6 Pt will demonstrate 4/5 RUE strength. 1=Demonstrate adherence to instructed precautions during ADL tasks. 2=Patient will verbalize/demonstrate understanding of assistive devices/modifications for ADL. 3=Patient will improve strength/tolerance for activity to enable patient to perform ADL's. OT Education/Plan Problem List/Assessment Assessment: Decreased Activ Tolerance, Decreased Safety Aware, Decreased UE Strength, Impaired Coordination, Impaired Funct Balance, Impaired I ADL's, Impaired Self-Care Skills Discharge Recommendations Plan/Recommendations: Continue POC Treatment Plan/Plan of Care Treatment,Training & Education: Yes Patient would benefit from OT for education, treatment and training to promote independence in ADL's, mobility, safety and/or upper extremity function for ADL's. Plan of Care: ADL Retraining, Caregiver Training, Concurrent Therapy, Functional Mobility, Group Exercise/Act as Ind, UE Funct Exercise/Act, UE Neuromus Re-Ed/Coord Treatment Duration: Dec 18, 2022 Frequency: At least 5 of 7 days/Wk (IRF) Estimated Hrs Per Day: Other (45mins/day) Agreement: Yes Rehab Potential: Good Time Start Time: 08:45 Stop Time: 09:30 DATE: Dec 02, 2022 Total Time Billed (hr/min): 45 Billed Treatment Time 1, ADL 2, FA 1 Komal Salinas OTR/L Dec 02, 2022 09:38
--- NOTE | 2022-12-02 10:31 | PM&R Progress Note ---
Subjective HPI/CC On Admission Date Seen by Provider: Dec 02, 2022 Time Seen by Provider: 05:30 Subjective/Events-last exam 12/02/2022: Patient in good mood Ambulating pretty well Tolerating tube feedings Speech therapy is working with her 12/01/2022: Patient up and alert Patient doing well Tube feedings tolerated Speech therapy consulted Overall weakness improved Review of Systems General: Fatigue, Malaise Neurological: Weakness, Incoordination, Change in speech Objective Exam Vital Signs Vital Signs Date Time Temp Pulse Resp B/P (MAP) Pulse Ox O2 Delivery O2 Flow Rate FiO2 12/02/22 13:36 Nasal Cannula 3.00 12/02/22 08:00 36.0 89 18 164/71 (102) 95 Capillary Refill : General Appearance: No Apparent Distress, WD/WN, Chronically ill, Obese HEENT: PERRL/EOMI, TMs Normal, Normal ENT Inspection, Pharynx Normal Neck: Full Range of Motion, Normal Inspection, Non Tender, Supple, Carotid Bruit Respiratory: Chest Non Tender, Lungs Clear, Normal Breath Sounds, No Accessory Muscle Use, No Respiratory Distress Cardiovascular: Regular Rate, Rhythm, No Edema, No Gallop, No JVD, No Murmur, Normal Peripheral Pulses Gastrointestinal: Normal Bowel Sounds, No Organomegaly, No Pulsatile Mass, Non Tender, Soft Back: Normal Inspection, No CVA Tenderness, No Vertebral Tenderness Extremity: Normal Capillary Refill, Normal Inspection, Normal Range of Motion, Non Tender, No Calf Tenderness, No Pedal Edema Neurologic/Psychiatric: Alert, Oriented x3, Normal Mood/Affect, Aphasia, Depressed Affect, Facial Droop ( right), Motor Weakness ( right-sided) Skin: Normal Color, Warm/Dry Lymphatic: No Adenopathy Results/Procedures Lab Patient resulted labs reviewed. FIM Transfers Therapy Code Descriptions/Definitions Functional [place] Measure: 0=Not Assessed/NA 4=Minimal Assistance 1=Total Assistance 5=Supervision or Setup 2=Maximal Assistance 6=Modified [place] 3=Moderate Assistance 7=Complete IndependenceSCALE: Activities may be completed with or without assistive devices. 9-Nmnyiymtdq-wbivlfg completes the activity by him/herself with no assistance from a helper. 5-Set-up or Clean-up Assistance-helper sets up or cleans up; patient completes activity. [place] assists only prior to or following the activity. 4-Supervision or Touching Assistance-helper provides verbal cues and/or touching/steadying and/or contact guard assistance as patient completes activity. Assistance may be provided throughout the activity or intermittently. 3-Partial/Moderate Assistance-helper does LESS THAN HALF the effort. [place] lifts, holds or supports trunk or limbs, but provides less than half the effort. 2-Substantial/Maximal Assistance-helper does MORE THAN HALF the effort. [place] lifts or holds trunk or limbs and provides more than half the effort. 8-Rgbaymdmu-faswqj does ALL the effort. Patient does none of the effort to complete the activity. Or, the assistance of 2 or more helpers is required for the patient to complete the activity. If activity was not attempted, code reason: 7-Patient Refused. 9-Not Applicable-not attempted and the patient did not perform the activity before the current illness, exacerbation or injury. 10-Not Attempted due to Environmental Limitations-(lack of equipment, weather restraints, etc.). 88-Not Attempted due to Medical Conditions or Safety Concerns. Roll Left to Right (QC): 4 (SBA ) Sit to Lying (QC): 4 (SBA ) Sit to Stand (QC): 4 Chair/Asw-zl-Womdv Xfer(QC): 4 (SBA ) Car Transfer (QC): 4 (SBA ) Gait Training Does the Patient Walk?: Yes Distance: 125' Walk 10 feet (QC): 5 Walk 50 ft with 2 Turns(QC): 5 Walk 150 ft (QC): 4 Walking 10ft/uneven surface-QC: 4 (CGA ) Gait Assistive Device: FWW Wheelchair Training Does the Pt Use a Wheelchair?: No Wheel 50 ft with 2 turns (QC): 9 Wheel 150 ft (QC): 9 Type of Wheelchair: N/A Stair Training #of Steps: 12 1 Step (curb) (QC): 4 (CGA ) 4 Steps (QC): 4 (CGA ) 12 Steps (QC): 4 (CGA ) Balance Picking up an Object (QC): 4 (CGA with dogman/woman ) ADL-Treatment Eating (QC): 3 Oral Hygiene (QC): 5 Shower/Bathe Self (QC): 2 Upper Body Dressing (QC): 6 Lower Body Dressing (QC): 3 (Pt requiring assistance to therad legs into pants) On/Off Footwear (QC): 6 Toileting Hygiene (QC): 4 (Pt completed hygiene in standing with supervision. ) Toilet Transfer (QC): 4 Assessment/Plan Assessment and Plan Assess & Plan/Chief Complaint Assessment: Bilateral ischemic strokes status post thrombolytics with residual aphasia and dysphagia status post PEG tube placement Severe multivessel CAD status post recent high risk intervention at on 11/18/2022 Recent NSTEMI HTN Hx CAD w/ CABG: CABG done in 2011 COPD: O2 dependent Hypercalcemia: obtain PTH, spot urine calcium, ionized calcium, vitamin D levels Angina: none currently, nitro PRN Hypomagnesemia: started on Mg replacement, continue to monitor, replace as needed HLD: resume home statin GERD: currently asymptomatic, antacids as needed Plan: PT and OT Lovenox for DVT prophylaxis PEG tube feeding Speech therapy 12/01/2022: Aggressive rehab Speech therapy Tube feedings 12/02/2022: Supportive care Monitor closely (1) CVA (cerebral vascular accident) LORENA OSULLIVAN DO Dec 02, 2022 10:31
[2022-12-02] MEDS: ACETAMINOPHEN 325 MG TABLET PO PRN (11:35)
--- NOTE | 2022-12-02 12:11 | Physical Therapy Daily Note ---
PT Daily Note-Current Subjective Pt asleep in bed upon arrival. Pt agrees to PT but immediately falls back to sleep. Pain Location: Incisional Location Body Site: Abdomen Comment: Reports at PED tube site but doesn't rate Section J - Health Conditions 1. Rarely or not at all 2. Occasionally 3. Frequently 4. Almost constantly 8. Unable to answer Pain Effect on Sleep: 2 Pain Interference with Therapy: 2 Pain Interference w/Day-to-Day: 2 Mental Status Attachments: PEG Tube Transfers SCALE: Activities may be completed with or without assistive devices. 9-Ocwnethaog-wxtbbqs completes the activity by him/herself with no assistance from a helper. 5-Set-up or Clean-up Assistance-helper sets up or cleans up; patient completes activity. Adah assists only prior to or following the activity. 4-Supervision or Touching Assistance-helper provides verbal cues and/or touching/steadying and/or contact guard assistance as patient completes activity. Assistance may be provided throughout the activity or intermittently. 3-Partial/Moderate Assistance-helper does LESS THAN HALF the effort. Adah lifts, holds or supports trunk or limbs, but provides less than half the effort. 2-Substantial/Maximal Assistance-helper does MORE THAN HALF the effort. Adah lifts or holds trunk or limbs and provides more than half the effort. 8-Momxvlxsr-znbvjz does ALL the effort. Patient does none of the effort to complete the activity. Or, the assistance of 2 or more helpers is required for the patient to complete the activity. If activity was not attempted, code reason: 7-Patient Refused. 9-Not Applicable-not attempted and the patient did not perform the activity before the current illness, exacerbation or injury. 10-Not Attempted due to Environmental Limitations-(lack of equipment, weather restraints, etc.). 88-Not Attempted due to Medical Conditions or Safety Concerns. Lying to Sitting/Side of Bed(Q: 4 Sit to Stand (QC): 4 Chair/Jtr-xj-Ahrnc Xfer(QC): 4 Weight Bearing Right Lower Extremity: Right Full Weight Bearing Left Lower Extremity: Left Full Weight Bearing Exercises Supine Ex: Ankle pumps, Quad Set, Glut sets, Heel Slides, Straight leg raise, Hip abd/add Supine Reps: 15 Seated Therapy Exercises: Long arc quads, Hip flexion, Hip abd/add, Glut set Seated Reps: 15 Treatments Pt has to be woken up during tx. Pt agrees to TF from Supine to EOB and a takes a RB as pt motions to stomach. Pt agrees to TF to recliner to recline back to take pressure off PEG tube. Nurse comes in to give nutrition and pt is shivering w/some occasional twitching. Nurse is aware. PT attempts to complete Seated Ex but is mostly unsuccessful 2/2 difficulty keeping pt awake. Pt is resting in recliner w/Nurse present at end of tx. All needs met, call light next to pt. Assessment Current Status: Fair Progress Pt difficult to keep awake as well as demonstrated health concerns see Tx Section. Nurse aware and monitoring. PT Care Home Goals Care Home Goals PT Fire Prevention Officer Goals Time Frame: Dec 21, 2022 Roll Left & Right (QC): 6 (Pt will be Mod I with functional mobility ) Sit to Lying (QC): 6 (Pt will be Mod I with functional mobility ) Lying-Sitting on Side/Bed(QC): 6 (Pt will be Mod I with functional mobility ) Sit to Stand (QC): 6 (Pt will be Mod I with functional mobility ) Chair/Ape-nz-Dzsan Xfer(QC): 6 (Pt will be Mod I with functional mobility ) Toilet Transfer (QC): 6 (Pt will be Mod I with functional mobility ) Car Transfer (QC): 6 (Pt will be Mod I with functional mobility ) Does the Patient Walk: Yes Walk 10 feet (QC): 6 (Pt will be Mod I with functional mobility ) Walk 50ft with 2 Turns (QC): 6 (Pt will be Mod I with functional mobility ) Walk 150 ft (QC): 6 (Pt will be Mod I with functional mobility ) Walking 10ft on Uneven Surface: 6 (Pt will be Mod I with functional mobility ) 1 Step (curb) (QC): 6 (Pt will be Mod I with functional mobility ) 4 Steps (QC): 6 (Pt will be Mod I with functional mobility ) 12 Steps (QC): 6 (Pt will be Mod I with functional mobility ) Picking up an Object (QC): 6 (Pt will be Mod I with functional mobility (with cleaning associate) ) Does the Pt use WC or Scooter?: No Wheel 50 feet with 2 turns (QC: 9 Type: N/A Wheel 150 feet: 9 Type: N/A PT Plan Problem List Problem List: Activity Tolerance, Safety Treatment/Plan Treatment Plan: Continue Plan of Care Treatment Plan: Bed Mobility, Education, Functional Activity Lou, Functional Strength, Group Therapy, Gait, Safety, Therapeutic Exercise, Transfers Treatment Duration: Dec 21, 2022 Frequency: At least 5 of 7 days/Wk (IRF) Estimated Hrs Per Day: 1 hour per day Patient and/or Family Agrees t: Yes Safety Risks/Education Patient Education: Transfer Techniques, Correct Positioning, Safety Issues Teaching Recipient: Patient Teaching Methods: Discussion Response to Teaching: Verbalize Understanding Time Time In: 1100 Time Out: 1200 DATE: Dec 02, 2022 Total Billed Treatment Time: 60 Total Billed Treatment 1, FA x2 (30m) & EX x2 (30m) KING CLAY PTA Dec 02, 2022 12:11
--- NOTE | 2022-12-02 12:52 | Speech Therapy Daily Note ---
Speech Daily Progress Note Subjective Date Seen by Provider: Dec 02, 2022 Time Seen by Provider: 10:00 The pt was sleeping in bed at VERIFICATION REP arrival, awakened easily. The pt sat EOB for duration of session, with intermittent support needed to prevent leaning to the right. Spouse was present for session. Objective Swallow: The pt agreed to PO trial, requested chocolate pudding when given choices. She consumed 100% of pudding cup with fair-good time efficiency. Moderate right pocketing occurred, the pt was unable to lingual sweep. She was able to use negative pressure with cheeks to clear approximately half of the pocketed stasis. Lingual ROM was targeted with mirror feedback. The pt was unable to protrude tongue to lower lip, and achieved minimal left lateralization. Language: The pt's menu was utilized for reading comprehension. She was able to find word headings named by VERIFICATION REP with min/mod assist. Reading target words was done with 50% accuracy for verbal production. Object naming and function was targeted. The pt named items in room environment with 80% accuracy, and produced short phrase/sentence to describe function with 60% accuracy. A picture communication board for basic nursing needs was targeted. The pt was able to point to the appropriate picture when given a scenario with 80% accuracy. Assessment Assessment Current Status: Good Progress Treatment Plan Continue Plan of Care Speech Prison Goals Prison Goals 1. The pt will produce single words with semantic cues with 80% accuracy. 2. The pt will state basic information re: self with 80% accuracy. 3. The pt will utilize augmentative methods of communication with 80% accuracy for basic needs. 4. The pt will write single words with 80% accuracy. 5. The pt will complete labial and lingual ROM exercises with 80% accuracy. Speech-Plan Treatment Plan Speech Therapy Treatment Plan: Continue Plan of Care Frequency: At least 5 of 7 days/Wk (IRF) Estimated Hrs Per Day: 1.5 hours per day Rehab Potential: Good Safety Risks/Education Teaching Recipient: Patient, Family Teaching Methods: Discussion Response to Teaching: Verbalize Understanding Education Topics Provided: Emergency communication for the home/Life alert Time Speech Therapy Time In: 10:00 Speech Therapy Time Out: 10:45 DATE: Dec 02, 2022 Total Billed Time: 45 Billed Treatment Time 1 SLTS (45 min) LORI PINEDO Dec 02, 2022 12:52
--- NOTE | 2022-12-02 14:38 | Speech Therapy Daily Note ---
Speech Daily Progress Note Subjective Date Seen by Provider: Dec 02, 2022 Time Seen by Provider: 13:20 The pt was sleeping in bedside chair at PUBLIC RELATIONS ASSOCIATE arrival. She did not arouse quickly, and after opening her eyes was not responsive to commands or questions. Left hand was in clenched position, pt could not follow commands to open hand with rigid resistance with assisted opening. The pt had blank stare, bilateral arm and leg twitching was also observed. Nsg staff notified, vitals were obtained. BP was 177/79, O2 saturation 100%. Medication was administered via PEG tube. O saad the next 10 minutes, the pt became more alert and began following commands and answering y/n questions. She had fair participation in session. Objective Minced/moist chicken, baked sweet potato, and ice cream trial was provided. The pt required assistance for self-feeding (load spoon), was able to bring spoon to mouth and retrieve bolus after spoon was placed in her hand. The pt consumed 50% of meat, 1/4 of large portion of sweet potato, and 1/2 serving of ice cream. Moderate right oral stasis noted throughout meal. The pt was responsive to verbal cues and visual demonstration of using cheeks to create negative pressure to effectively clear pocketed material. Oral sweep with swab following meal revealed mild billateral sulcus stasis. The pt had poor participation in language tasks, with minimal verbalizations elicited with max prompts and cues. Assessment Assessment Current Status: Fair Progress The pt is making gains on swallowing goals, with increased amount of PO intake with improved efficiency (time/amount of oral intake). Expressive language decreased this p.m. session. Speech Skilled Nursing Goals Trolley Worker Goals 1. The pt will produce single words with semantic cues with 80% accuracy. 2. The pt will state basic information re: self with 80% accuracy. 3. The pt will utilize augmentative methods of communication with 80% accuracy for basic needs. 4. The pt will write single words with 80% accuracy. 5. The pt will complete labial and lingual ROM exercises with 80% accuracy. Speech-Plan Treatment Plan Speech Therapy Treatment Plan: Continue Plan of Care Frequency: At least 5 of 7 days/Wk (IRF) Estimated Hrs Per Day: 1.5 hours per day Rehab Potential: Good Barriers to Learning: Fluctuating mental status observed this date Time Speech Therapy Time In: 13:20 Speech Therapy Time Out: 14:20 DATE: Dec 02, 2022 Total Billed Time: 60 Billed Treatment Time 1 SLTS (20 min) 1 DYST (40 min) Additional minutes pm session due to decreased mental status LORI PINEDO Dec 02, 2022 14:38
[2022-12-02 20:43] VITALS: BP 140/65
[2022-12-03] MEDS: hydrALAZINE 25 MG TABLET PO SCH ×3 (05:54→21:54)
[2022-12-03 08:00] VITALS: BP 149/65
[2022-12-03] MEDS: SPIRONOLACTONE 25 MG TABLET PO SCH (09:26)
[2022-12-03] MEDS: ACETAMINOPHEN 325 MG TABLET PO PRN (09:26)
[2022-12-03] MEDS: PREGABALIN 25 MG CAPSULE PO SCH ×3 (09:26→21:54)
[2022-12-03] MEDS: CLOPIDOGREL 75 MG TABLET PO SCH (09:27)
[2022-12-03] MEDS: carvediloL 12.5 MG TABLET NG SCH ×2 (09:27→18:38)
[2022-12-03] MEDS: MELOXICAM 7.5 MG TABLET PO SCH (09:27)
[2022-12-03] MEDS: ASPIRIN 81 MG CHEWABLE TABLET PO SCH (09:27)
[2022-12-03] MEDS: FERROUS SULFATE 325 MG (IRON) TABLET PO SCH (09:27)
[2022-12-03] MEDS: toPIRamate 25 MG (TOPAMAX) TAB PO SCH (09:27)
[2022-12-03] MEDS: ENOXAPARIN 40 MG/0.4 ML SYRINGE SC SCH (09:28)
[2022-12-03] MEDS: VITAMIN D3 25 MCG (1,000 UNITS) TABLET PO SCH (09:28)
[2022-12-03] MEDS: FAMOTIDINE ORAL SUSP 40 MG/5 ML 50 ML PEG SCH (09:28)
[2022-12-03] MEDS: DOCUSATE SODIUM 100 MG/10 ML UDC ORAL SOLN PO SCH ×2 (09:40→21:45)
[2022-12-03] MEDS: SENNA W/DOCUSATE TABLET PO SCH ×2 (09:42→21:45)
--- NOTE | 2022-12-03 09:43 | Occupational Ther Daily Note ---
OT Current Status-Daily Note Subjective Pt was received reclining in chair. Pt was very lethargic and required moderate encouragement to participate in therapy. Towards end of session, pt c/o headache and nursing staff was notified. Pain Numeric Pain Scale: 7 Location Body Site: Head Pain Description: Ache Mental Status/Objective Patient Orientation: Unable to Assess (Attempted to complete orientation/BIMS assessment, but pt was not receptive) Attachments: Oxygen (3L), PEG Tube Pt demonstrating very lethargic and disorganized thinking this session. Pt required max verbal and tactile cues for sequencing to complete ADLs and to safely complete transfers. ADL-Treatment Therapy Code Descriptions/Definitions Functional [place] Measure: 0=Not Assessed/NA 4=Minimal Assistance 1=Total Assistance 5=Supervision or Setup 2=Maximal Assistance 6=Modified [place] 3=Moderate Assistance 7=Complete IndependenceSCALE: Activities may be completed with or without assistive devices. 7-Yscgsuknal-pvaqpro completes the activity by him/herself with no assistance from a helper. 5-Set-up or Clean-up Assistance-helper sets up or cleans up; patient completes activity. [place] assists only prior to or following the activity. 4-Supervision or Touching Assistance-helper provides verbal cues and/or touching/steadying and/or contact guard assistance as patient completes activity. Assistance may be provided throughout the activity or intermittently. 3-Partial/Moderate Assistance-helper does LESS THAN HALF the effort. [place] lifts, holds or supports trunk or limbs, but provides less than half the effort. 2-Substantial/Maximal Assistance-helper does MORE THAN HALF the effort. [place] lifts or holds trunk or limbs and provides more than half the effort. 8-Emnhdicym-gvuzrr does ALL the effort. Patient does none of the effort to complete the activity. Or, the assistance of 2 or more helpers is required for the patient to complete the activity. If activity was not attempted, code reason: 7-Patient Refused. 9-Not Applicable-not attempted and the patient did not perform the activity before the current illness, exacerbation or injury. 10-Not Attempted due to Environmental Limitations-(lack of equipment, weather restraints, etc.). 88-Not Attempted due to Medical Conditions or Safety Concerns. Oral Hygiene (QC): 3 (Pt requiring max cues for sequencing and follow through with brushing teeth.) Upper Body Dressing (QC): 3 (Pt requiring max cues for sequencing donning and doffing shirt. Pt requiring mod A to thread arms through correct holes and pull shirt down over back and abdomen. ) Lower Body Dressing (QC): 2 (Pt requiring max A to don and doff pants and briefs. Required max cues to sequence activity. Attempted to introduce biodiesel plant operations engineer to increase independence, though pt was not receptive to the education. Required assistance to thread legs with both briefs and pants and to pull up pants over bottom completely. ) On/Off Footwear: 3 (Pt requiring help to place sock over toes of R foot, though was independent with L foot and pulling up both socks completely. Pt was not receptive to sock aid training this session. ) Toileting Hygiene (QC): 4 (Pt required supervision to complete toilet hygiene in standing and required max cues to complete hygiene thouroughly. Pt confused plastic flap with wet wipe and required max verbal and tactile cues to redirect to use wet wipe. ) Toilet Transfer (QC): 4 (Required supervision to complete transfer with FWW. ) Pt noted to have very unorganized thinking this session, requiring max cues for dressing, toileting, and transfers. Pt was not receptive to any training this session and was unable to participate in BIMs or orientation assessment. Pt attempted use of writing to communication once, though was unable to form c oherent sentences. Nursing staff was notified of change in status. Other Treatment Attempted to introduce adaptive equipment, though pt was not receptive this session. Completed 1x10 of shoulder flexion strengthening exercise, though pt was unable to follow through with shoulder abduction or bicep exercises. Education OT Patient Education: Correct positioning, Energy conservation, Exercise program, Modified ADL techniques, Progress toward Goal/Update tx plan, Purpose of tx/functional activities, Rehab process, Safety issues, Use of adapted equipment Teaching Recipient: Patient Teaching Methods: Demonstration, Discussion Response to Teaching: Unable to Return Demonstration, Reinforcement Needed Pt demonstrating difficulty with understanding and demonstrating educat ion/training this session. BIMS CAM BIMS Expression of Ideas and Wants: Difficulty (Difficulty writing and using verbal communication this session. ) Understanding Verbal Content: Sometimes Understands Brief Interview/Mental Status: Yes CAM Mental Status Change/Baseline: 1 Inattention: 2 Disorganized thinkin Altered level of consciousness: 0 OT Short Term Goals Short Term Goals Time Frame: Dec 07, 2022 Eatin Oral hygiene: 5 Toileting hygiene: 5 Shower/bathe self: 4 Upper body dressin Lower body dressin Putting on/taking off footwear: 6 OT Residential Goals Residential Goals Acute change in mental status: 0 Inattention: 0 Disorganized thinkin Altered level of consciousness: 0 Eating (QC): 6 Oral Hygiene (QC): 6 Toileting Hygiene (QC): 6 Shower/Bathe Self (QC): 6 Upper Body Dressing (QC): 6 Lower Body Dressing (QC): 6 On/Off Footwear (QC): 6 Pt will demonstrate 4/5 RUE strength. 1=Demonstrate adherence to instructed precautions during ADL tasks. 2=Patient will verbalize/demonstrate understanding of assistive devices/modifications for ADL. 3=Patient will improve strength/tolerance for activity to enable patient to perform ADL's. OT Education/Plan Problem List/Assessment Assessment: Decreased Activ Tolerance, Decreased Safety Aware, Decreased UE Strength, Impaired Cognition, Impaired Coordination, Impaired Funct Balance, Impaired I ADL's, Impaired Self-Care Skills Discharge Recommendations Plan/Recommendations: Continue POC Treatment Plan/Plan of Care Treatment,Training & Education: Yes Patient would benefit from OT for education, treatment and training to promote independence in ADL's, mobility, safety and/or upper extremity function for ADL's. Plan of Care: ADL Retraining, Caregiver Training, Concurrent Therapy, Functional Mobility, Group Exercise/Act as Ind, UE Funct Exercise/Act, UE Neuromus Re-Ed/Coord Treatment Duration: Dec 18, 2022 Frequency: At least 5 of 7 days/Wk (IRF) Estimated Hrs Per Day: Other (45mins/day) Agreement: Yes Rehab Potential: Good Time Start Time: 08:45 Stop Time: 09:30 DATE: Dec 03, 2022 Total Time Billed (hr/min): 45 Billed Treatment Time 1, ADL 2, FA 1 Komal Salinas OTR/L Dec 03, 2022 09:43
--- NOTE | 2022-12-03 10:28 | PM&R Progress Note ---
Subjective HPI/CC On Admission Date Seen by Provider: Dec 03, 2022 Time Seen by Provider: 10:30 Subjective/Events-last exam 12/03/2022: Having some delayed movements and "fuzziness" CT head obtained and no new issues and labs stable but UTI dx Cefepime ordered 12/02/2022: Patient in good mood Ambulating pretty well Tolerating tube feedings Speech therapy is working with her 12/01/2022: Patient up and alert Patient doing well Tube feedings tolerated Speech therapy consulted Overall weakness improved Review of Systems General: Fatigue, Malaise Objective Exam Vital Signs Vital Signs Date Time Temp Pulse Resp B/P (MAP) Pulse Ox O2 Delivery O2 Flow Rate FiO2 12/03/22 09:00 Nasal Cannula 3.00 12/03/22 08:00 36.4 73 16 149/65 (93) 94 Capillary Refill : General Appearance: No Apparent Distress, WD/WN, Chronically ill, Obese HEENT: PERRL/EOMI, TMs Normal, Normal ENT Inspection, Pharynx Normal Neck: Full Range of Motion, Normal Inspection, Non Tender, Supple, Carotid Bruit Respiratory: Chest Non Tender, Lungs Clear, Normal Breath Sounds, No Accessory Muscle Use, No Respiratory Distress Cardiovascular: Regular Rate, Rhythm, No Edema, No Gallop, No JVD, No Murmur, Normal Peripheral Pulses Gastrointestinal: Normal Bowel Sounds, No Organomegaly, No Pulsatile Mass, Non Tender, Soft Back: Normal Inspection, No CVA Tenderness, No Vertebral Tenderness Extremity: Normal Capillary Refill, Normal Inspection, Normal Range of Motion, Non Tender, No Calf Tenderness, No Pedal Edema Neurologic/Psychiatric: Alert, Oriented x3, Normal Mood/Affect, Aphasia, Depressed Affect, Facial Droop ( right), Motor Weakness ( right-sided) Skin: Normal Color, Warm/Dry Lymphatic: No Adenopathy Results/Procedures Lab Laboratory Tests 12/03/22 10:51 Patient resulted labs reviewed. FIM Transfers Therapy Code Descriptions/Definitions Functional [place] Measure: 0=Not Assessed/NA 4=Minimal Assistance 1=Total Assistance 5=Supervision or Setup 2=Maximal Assistance 6=Modified [place] 3=Moderate Assistance 7=Complete IndependenceSCALE: Activities may be completed with or without assistive devices. 6-Fkgwaswiyc-iymfqiw completes the activity by him/herself with no assistance from a helper. 5-Set-up or Clean-up Assistance-helper sets up or cleans up; patient completes activity. [place] assists only prior to or following the activity. 4-Supervision or Touching Assistance-helper provides verbal cues and/or touching/steadying and/or contact guard assistance as patient completes activity. Assistance may be provided throughout the activity or intermittently. 3-Partial/Moderate Assistance-helper does LESS THAN HALF the effort. [place] lifts, holds or supports trunk or limbs, but provides less than half the effort. 2-Substantial/Maximal Assistance-helper does MORE THAN HALF the effort. [place] lifts or holds trunk or limbs and provides more than half the effort. 8-Bwxfklaem-pfhhzz does ALL the effort. Patient does none of the effort to complete the activity. Or, the assistance of 2 or more helpers is required for the patient to complete the activity. If activity was not attempted, code reason: 7-Patient Refused. 9-Not Applicable-not attempted and the patient did not perform the activity before the current illness, exacerbation or injury. 10-Not Attempted due to Environmental Limitations-(lack of equipment, weather restraints, etc.). 88-Not Attempted due to Medical Conditions or Safety Concerns. Roll Left to Right (QC): 4 (SBA ) Sit to Lying (QC): 4 (SBA ) Sit to Stand (QC): 4 Chair/Zmx-zc-Gesmp Xfer(QC): 4 Car Transfer (QC): 4 (SBA ) Gait Training Does the Patient Walk?: Yes Distance: 125' Walk 10 feet (QC): 5 Walk 50 ft with 2 Turns(QC): 5 Walk 150 ft (QC): 4 Walking 10ft/uneven surface-QC: 4 (CGA ) Gait Assistive Device: FWW Wheelchair Training Does the Pt Use a Wheelchair?: No Wheel 50 ft with 2 turns (QC): 9 Wheel 150 ft (QC): 9 Type of Wheelchair: N/A Stair Training #of Steps: 12 1 Step (curb) (QC): 4 (CGA ) 4 Steps (QC): 4 (CGA ) 12 Steps (QC): 4 (CGA ) Balance Picking up an Object (QC): 4 (CGA with supervisor channel process ) ADL-Treatment Eating (QC): 3 Oral Hygiene (QC): 3 (Pt requiring max cues for sequencing and follow through with brushing teeth.) Shower/Bathe Self (QC): 2 Upper Body Dressing (QC): 3 (Pt requiring max cues for sequencing donning and doffing shirt. Pt requiring mod A to thread arms through correct holes and pull shirt down over back and abdomen. ) Lower Body Dressing (QC): 2 (Pt requiring max A to don and doff pants and briefs. Required max cues to sequence activity. Attempted to introduce supervisor channel process t o increase independence, though pt was not receptive to the education. Required assistance to thread legs with both briefs and pants and to pull up pants over bottom completely. ) On/Off Footwear (QC): 3 (Pt requiring help to place sock over toes of R foot, though was independent with L foot and pulling up both socks completely. Pt was not receptive to sock aid training this session. ) Toileting Hygiene (QC): 4 (Pt required supervision to complete toilet hygiene in standing and required max cues to complete hygiene thouroughly. Pt confused plastic flap with wet wipe and required max verbal and tactile cues to redirect to use wet wipe. ) Toilet Transfer (QC): 4 (Required supervision to complete transfer with FWW. ) Assessment/Plan Assessment and Plan Assess & Plan/Chief Complaint Assessment: Bilateral ischemic strokes status post thrombolytics with residual aphasia and dysphagia status post PEG tube placement Severe multivessel CAD status post recent high risk intervention at on 11/18/2022 Recent NSTEMI HTN Hx CAD w/ CABG: CABG done in 2011 COPD: O2 dependent Hypercalcemia: obtain PTH, spot urine calcium, ionized calcium, vitamin D levels Angina: none currently, nitro PRN Hypomagnesemia: started on Mg replacement, continue to monitor, replace as needed HLD: resume home statin GERD: currently asymptomatic, antacids as needed UTI dx 12/03/22 Plan: PT and OT Lovenox for DVT prophylaxis PEG tube feeding Speech therapy 12/01/2022: Aggressive rehab Speech therapy Tube feedings 12/02/2022: Supportive care Monitor closely 12/03/2022: Monitor closely (1) CVA (cerebral vascular accident) LORENA OSULLIVAN DO Dec 03, 2022 10:28
[2022-12-03 11:01] LABS: BASOPHILS % (AUTO) 0 % (0-10); EOSINOPHILS # (AUTO) 0.2 10^3/uL (0.0-0.3); EOSINOPHILS % (AUTO) 2 % (0-10); HEMATOCRIT 24 % (35-52); HEMOGLOBIN 7.3 g/dL (11.5-16.0); LYMPHOCYTES # (AUTO) 0.9 10^3/uL (1.0-4.0); LYMPHOCYTES % (AUTO) 9 % (12-44); MEAN CORPUSCULAR HEMOGLOBIN 29 pg (25-34); MEAN CORPUSCULAR HGB CONC 30 g/dL (32-36); MEAN CORPUSCULAR VOLUME 97 fL (80-99); MEAN PLATELET VOLUME 12.5 fL (9.0-12.2); MONOCYTES # (AUTO) 0.9 10^3/uL (0.0-1.0); MONOCYTES % (AUTO) 8 % (0-12); NEUTROPHILS # (AUTO) 8.8 10^3/uL (1.8-7.8); NEUTROPHILS % (AUTO) 81 % (42-75); PLATELET COUNT 165 10^3/uL (130-400)
[2022-12-03 11:15] LABS: ALBUMIN 3.3 GM/DL (3.2-4.5); BILIRUBIN,TOTAL 0.3 MG/DL (0.1-1.0); CALCIUM 10.1 MG/DL (8.5-10.1); CREATININE SERUM 1.1 MG/DL (0.60-1.30); POTASSIUM 5.1 MMOL/L (3.6-5.0); TOTAL PROTEIN 5.8 GM/DL (6.4-8.2)
--- NOTE | 2022-12-03 11:55 | Speech Therapy Daily Note ---
Speech Daily Progress Note Subjective Date Seen by Provider: Dec 03, 2022 Time Seen by Provider: 10:15 The pt continues with variable mental status. OT reported significant change in status for dressing this a.m. For ST session, the pt was sleeping at arrival, alerted with repositioning in bed. She was largely non-verbal for duration of session. Objective PO trial of pudding was provided. Thin water by straw was attempted initially, the pt was unable to coordinate sucking to retrieve liquid through the straw. She was able to hold a cup and take drinks from cup without difficulty, and later in session was able to drink from the straw. While self-feeding pudding, the pt had an episode of left arm rigidity and right arm twitching. Dr. Montoya came to room on request, the pt was able to follow all commands issued by physician at that time. She consumed 100% of pudding after physician departure, demonstrated ability to lick lips to clear labial stasis. Menu choices were targeted. The pt persisted in turning the menu upside down for reading. Simple choices of 2 items were written, and the pt was able to point to choose desired foods. The explosive ordnance disposal technician arrived mid-session to draw blood, asked for the pt's . The pt verbally replied "seven eight [phone] eight" in response to question. Assessment Assessment Current Status: Fair Progress Variable mental status between treatments, and during treatment sessions. Treatment Plan Continue Plan of Care Speech Penitentiary Goals Penitentiary Goals 1. The pt will produce single words with semantic cues with 80% accuracy. 2. The pt will state basic information re: self with 80% accuracy. 3. The pt will utilize augmentative methods of communication with 80% accuracy for basic needs. 4. The pt will write single words with 80% accuracy. 5. The pt will complete labial and lingual ROM exercises with 80% accuracy. Speech-Plan Treatment Plan Speech Therapy Treatment Plan: Continue Plan of Care Treatment Duration: Dec 01, 2022 Frequency: At least 5 of 7 days/Wk (IRF) Estimated Hrs Per Day: 1.5 hours per day Rehab Potential: Good Time Speech Therapy Time In: 10:15 Speech Therapy Time Out: 11:05 DATE: Dec 03, 2022 Total Billed Time: 50 Billed Treatment Time 1 SLTS (25) 1 DYST (25) LORI PINEDO Dec 03, 2022 11:55
[2022-12-03] MEDS ORDERED: CYANOCOBALAMIN 1000 MCG/ML 1 ML VIAL IM NR (12:15)
--- NOTE | 2022-12-03 12:50 | Diagnostic Imaging Report ---
INDICATION: Altered mental status. TECHNIQUE: Multiple contiguous axial images were obtained through the brain without the use of intravenous contrast. Auto Exposure Controls were utilized during the CT exam to meet ALARA standards for radiation dose reduction. Comparison made with 11/22/2022 FINDINGS: There are diffuse atrophic changes. There are patchy low-density changes in the deep white matter compatible with chronic ischemic change, with old infarct in the left deep frontal white matter. There is no acute hemorrhage or subdural or epidural collection. The ventricles are normal in size and position. Calvarial windows are unremarkable. IMPRESSION: Atrophic changes and chronic changes in deep white matter with old infarct in left deep frontal white matter. No overt acute intracranial finding. Consider MRI if symptoms persist. Dictated by: Dictated on workstation # [id number]
[2022-12-03 13:49] LABS: CLARITY,URINE CLOUDY; COLOR,URINE YELLOW; GLUCOSE, URINE (UA) NEGATIVE (NEGATIVE); PH,URINE 6.5 (5-9); PROTEIN,URINE 2+ (NEGATIVE)
[2022-12-03 13:50] LABS: BACTERIA,URINE LARGE /HPF; BILIRUBIN,URINE NEGATIVE (NEGATIVE); KETONES,URINE NEGATIVE (NEGATIVE); LEUKOCYTE ESTERASE ,URINE 3+ (NEGATIVE); NITRITE,URINE NEGATIVE (NEGATIVE); WBC,URINE TNTC /HPF
--- NOTE | 2022-12-03 14:18 | Physical Therapy Daily Note ---
PT Daily Note-Current Subjective Pt laying Supine in bed asleep upon arrival. Pt reluctantly agrees to PT. PICTURE PAINTER had to just start turning lights on and telling pt she needed to start getting up for tx because pt pretended to sleep even though PICTURE PAINTER could tell pt wasn't sleeping. Pain Location: No Pain Reported Section J - Health Conditions 1. Rarely or not at all 2. Occasionally 3. Frequently 4. Almost constantly 8. Unable to answer Pain Effect on Sleep: 2 Pain Interference with Therapy: 2 Pain Interference w/Day-to-Day: 2 Mental Status Patient Orientation: Person, Non-Verbal/Aphasic Attachments: Oxygen (3L) Transfers SCALE: Activities may be completed with or without assistive devices. 0-Krbkvlnfsd-lxtckbs completes the activity by him/herself with no assistance from a helper. 5-Set-up or Clean-up Assistance-helper sets up or cleans up; patient completes activity. [place] assists only prior to or following the activity. 4-Supervision or Touching Assistance-helper provides verbal cues and/or touching/steadying and/or contact guard assistance as patient completes activity. Assistance may be provided throughout the activity or intermittently. 3-Partial/Moderate Assistance-helper does LESS THAN HALF the effort. [place] lifts, holds or supports trunk or limbs, but provides less than half the effort. 2-Substantial/Maximal Assistance-helper does MORE THAN HALF the effort. [place] lifts or holds trunk or limbs and provides more than half the effort. 8-Yqjlqrfdl-xhbner does ALL the effort. Patient does none of the effort to comp lete the activity. Or, the assistance of 2 or more helpers is required for the patient to complete the activity. If activity was not attempted, code reason: 7-Patient Refused. 9-Not Applicable-not attempted and the patient did not perform the activity before the current illness, exacerbation or injury. 10-Not Attempted due to Environmental Limitations-(lack of equipment, weather restraints, etc.). 88-Not Attempted due to Medical Conditions or Safety Concerns. Lying to Sitting/Side of Bed(Q: 4 Sit to Stand (QC): 4 Weight Bearing Right Lower Extremity: Right Full Weight Bearing Left Lower Extremity: Left Full Weight Bearing Gait Training Does the Patient Walk?: Yes Distance: 150', 200' Walk 10 feet (QC): 3 Walk 50 ft with 2 Turns(QC): 3 Walk 150 ft (QC): 3 Gait Persons Needed: 1 Gait Assistive Device: FWW PICTURE PAINTER had to assist guiding FWW as pt was drifting to L side and running into things in hallway. Treatments TF from Supine to EOB to Standing and amb in hallway, standing RB as needed. Pt takes RB in chair in Therapy Gym. Pt attempts to communicate on dry erase board but no successful communication made. Pt attempts using NuStep but as soon as other patients start leaving room, pt tries to leave room as well. Pt amb in [place] llway and returns to room at lunch time. Pt laying Supine in bed w/Bed Alarm on. All needs met, call light in hand. Assessment Current Status: Fair Progress Pt demonstrated a lot of unfocused energy, unmotivated to complete therapy tasks and very impulsive during Therapy Session. PT Legal Instruments Examiner Goals Legal Instruments Examiner Goals PT Legal Instruments Examiner Goals Time Frame: Dec 21, 2022 Roll Left & Right (QC): 6 (Pt will be Mod I with functional mobility ) Sit to Lying (QC): 6 (Pt will be Mod I with functional mobility ) Lying-Sitting on Side/Bed(QC): 6 (Pt will be Mod I with functional mobility ) Sit to Stand (QC): 6 (Pt will be Mod I with functional mobility ) Chair/Qzy-ds-Sbitu Xfer(QC): 6 (Pt will be Mod I with functional mobility ) Toilet Transfer (QC): 6 (Pt will be Mod I with functional mobility ) Car Transfer (QC): 6 (Pt will be Mod I with functional mobility ) Does the Patient Walk: Yes Walk 10 feet (QC): 6 (Pt will be Mod I with functional mobility ) Walk 50ft with 2 Turns (QC): 6 (Pt will be Mod I with functional mobility ) Walk 150 ft (QC): 6 (Pt will be Mod I with functional mobility ) Walking 10ft on Uneven Surface: 6 (Pt will be Mod I with functional mobility ) 1 Step (curb) (QC): 6 (Pt will be Mod I with functional mobility ) 4 Steps (QC): 6 (Pt will be Mod I with functional mobility ) 12 Steps (QC): 6 (Pt will be Mod I with functional mobility ) Picking up an Object (QC): 6 (Pt will be Mod I with functional mobility (with cartographic drafter) ) Does the Pt use WC or Scooter?: No Wheel 50 feet with 2 turns (QC: 9 Type: N/A Wheel 150 feet: 9 Type: N/A PT Plan Problem List Problem List: Safety, Gait Treatment/Plan Treatment Plan: Continue Plan of Care Treatment Plan: Bed Mobility, Education, Functional Activity Lou, Functional Strength, Group Therapy, Gait, Safety, Therapeutic Exercise, Transfers Treatment Duration: Dec 21, 2022 Frequency: At least 5 of 7 days/Wk (IRF) Estimated Hrs Per Day: 1 hour per day Patient and/or Family Agrees t: Yes Safety Risks/Education Patient Education: Gait Training, Correct Positioning, Safety Issues Teaching Recipient: Patient Teaching Methods: Discussion Response to Teaching: Reinforcement Needed Time Time In: 1100 Time Out: 1145 DATE: Dec 03, 2022 Total Billed Treatment Time: 45 Total Billed Treatment 1, GT x2 (30m) & FA (15m) K[place] PICTURE PAINTER Dec 03, 2022 14:18
[2022-12-03] MEDS: IRON SUCROSE 200 MG/10 ML VIAL IV SCH (15:31)
[2022-12-03] MEDS: NS IV 1000 ML 1,000 ML IV SCH (15:31)
[2022-12-03] MEDS: CEFEPIME INJECTION 1,000 MG in NS (IVPB) 50 ML 50 ML IV SCH ×2 (15:32→21:54)
--- NOTE | 2022-12-03 15:38 | Speech Therapy Daily Note ---
Speech Daily Progress Note Subjective Date Seen by Provider: Dec 03, 2022 Time Seen by Provider: 13:30 The pt was seen for trial lunch meal of minced/moist solids. She had good participation initially, with low endurance and fatigue noted after approximately 30 minutes. Objective The pt was seated at a table in activity room for meal with present for session. She self-fed with occasional assist needed to prompt to initiate taking another bite. Right pocketing was reduced overall, with good bolus control to left of mouth and improved oral clearance. The pt consumed 50% of minced turkey and 40% of mashed potatoes. The pt introduced herself and spouse to other people joining the table with prompting required. Writing personal information was targeted after meal. She was able to write her first name, was unable to write last name with perseveration of first name writing. Simple opposites for automatic speech were then targeted, with poor accuracy and perseveration of word responses. The pt was walked back to her room and positioned in bed. Assessment Assessment Current Status: Fair Progress Continued gains for oral control of solid foods, variable performance daily for expressive language. Speech Wood Drill Operator Goals Wood Drill Operator Goals 1. The pt will produce single words with semantic cues with 80% accuracy. 2. The pt will state basic information re: self with 80% accuracy. 3. The pt will utilize augmentative methods of communication with 80% accuracy for basic needs. 4. The pt will write single words with 80% accuracy. 5. The pt will complete labial and lingual ROM exercises with 80% accuracy. Speech-Plan Treatment Plan Speech Therapy Treatment Plan: Continue Plan of Care Plan to increase patient to 2 meals/day, request nsg hold TF until PO intake completed. Treatment Duration: Dec 01, 2022 Frequency: At least 5 of 7 days/Wk (IRF) Estimated Hrs Per Day: 1.5 hours per day Rehab Potential: Good Time Speech Therapy Time In: 13:30 Speech Therapy Time Out: 14:20 DATE: Dec 03, 2022 Total Billed Time: 50 Billed Treatment Time 1 DYST (35) 1 SLTS (15) LORI PINEDO Dec 03, 2022 15:38
[2022-12-03 21:00] VITALS: BP 153/69
[2022-12-04] MEDS: diazePAM 5 MG TABLET PO PRN ×2 (04:08→07:46)
--- NOTE | 2022-12-04 05:14 | PM&R Progress Note ---
Subjective HPI/CC On Admission Date Seen by Provider: Dec 04, 2022 Time Seen by Provider: 12:00 Subjective/Events-last exam 12/04/2022: Had an aspiration episode this afternoon Chest x-ray shows possible pneumonia Met protocol maintain 12/03/2022: Having some delayed movements and "fuzziness" CT head obtained and no new issues and labs stable but UTI dx Cefepime ordered 12/02/2022: Patient in good mood Ambulating pretty well Tolerating tube feedings Speech therapy is working with her 12/01/2022: Patient up and alert Patient doing well Tube feedings tolerated Speech therapy consulted Overall weakness improved Review of Systems General: Fatigue, Malaise Objective Exam Vital Signs Vital Signs Date Time Temp Pulse Resp B/P (MAP) Pulse Ox O2 Delivery O2 Flow Rate FiO2 12/04/22 20:35 94 Nasal Cannula 4.00 12/04/22 20:04 36.2 75 17 145/64 (91) Capillary Refill : General Appearance: No Apparent Distress, WD/WN, Chronically ill, Obese HEENT: PERRL/EOMI, TMs Normal, Normal ENT Inspection, Pharynx Normal Neck: Full Range of Motion, Normal Inspection, Non Tender, Supple, Carotid Bruit Respiratory: Chest Non Tender, Lungs Clear, Normal Breath Sounds, No Accessory Muscle Use, No Respiratory Distress Cardiovascular: Regular Rate, Rhythm, No Edema, No Gallop, No JVD, No Murmur, Normal Peripheral Pulses Gastrointestinal: Normal Bowel Sounds, No Organomegaly, No Pulsatile Mass, Non Tender, Soft Back: Normal Inspection, No CVA Tenderness, No Vertebral Tenderness Extremity: Normal Capillary Refill, Normal Inspection, Normal Range of Motion, Non Tender, No Calf Tenderness, No Pedal Edema Neurologic/Psychiatric: Alert, Oriented x3, Normal Mood/Affect, Aphasia, Depressed Affect, Facial Droop ( right), Motor Weakness ( right-sided) Skin: Normal Color, Warm/Dry Lymphatic: No Adenopathy Results/Procedures Lab Patient resulted labs reviewed. FIM Transfers Therapy Code Descriptions/Definitions Functional [place] Measure: 0=Not Assessed/NA 4=Minimal Assistance 1=Total Assistance 5=Supervision or Setup 2=Maximal Assistance 6=Modified [place] 3=Moderate Assistance 7=Complete IndependenceSCALE: Activities may be completed with or without assistive devices. 0-Sbxkzhpwem-laxusnn completes the activity by him/herself with no assistance from a helper. 5-Set-up or Clean-up Assistance-helper sets up or cleans up; patient completes activity. [place] assists only prior to or following the activity. 4-Supervision or Touching Assistance-helper provides verbal cues and/or touching/steadying and/or contact guard assistance as patient completes activity. Assistance may be provided throughout the activity or intermittently. 3-Partial/Moderate Assistance-helper does LESS THAN HALF the effort. [place] lifts, holds or supports trunk or limbs, but provides less than half the effort. 2-Substantial/Maximal Assistance-helper does MORE THAN HALF the effort. [place] lifts or holds trunk or limbs and provides more than half the effort. 8-Etmdvfmtr-tabcll does ALL the effort. Patient does none of the effort to complete the activity. Or, the assistance of 2 or more helpers is required for the patient to complete the activity. If activity was not attempted, code reason: 7-Patient Refused. 9-Not Applicable-not attempted and the patient did not perform the activity before the current illness, exacerbation or injury. 10-Not Attempted due to Environmental Limitations-(lack of equipment, weather restraints, etc.). 88-Not Attempted due to Medical Conditions or Safety Concerns. Roll Left to Right (QC): 4 (SBA ) Sit to Lying (QC): 4 (SBA ) Sit to Stand (QC): 4 Chair/Vxs-le-Bglty Xfer(QC): 4 Car Transfer (QC): 4 (SBA ) Gait Training Does the Patient Walk?: Yes Distance: 150', 200' Walk 10 feet (QC): 3 Walk 50 ft with 2 Turns(QC): 3 Walk 150 ft (QC): 3 Walking 10ft/uneven surface-QC: 4 (CGA ) Gait Persons Needed: 1 Gait Assistive Device: FWW Wheelchair Training Does the Pt Use a Wheelchair?: No Wheel 50 ft with 2 turns (QC): 9 Wheel 150 ft (QC): 9 Type of Wheelchair: N/A Stair Training #of Steps: 12 1 Step (curb) (QC): 4 (CGA ) 4 Steps (QC): 4 (CGA ) 12 Steps (QC): 4 (CGA ) Balance Picking up an Object (QC): 4 (CGA with batch freezer operator ) ADL-Treatment Eating (QC): 3 Oral Hygiene (QC): 3 (Pt requiring max cues for sequencing and follow through with brushing teeth.) Shower/Bathe Self (QC): 2 Upper Body Dressing (QC): 3 (Pt requiring max cues for sequencing donning and doffing shirt. Pt requiring mod A to thread arms through correct holes and pull shirt down over back and abdomen. ) Lower Body Dressing (QC): 2 (Pt requiring max A to don and doff pants and briefs. Required max cues to sequence activity. Attempted to introduce batch freezer operator to increase independence, though pt was not receptive to the education. Required assistance to thread legs with both briefs and pants and to pull up pants over bottom completely. ) On/Off Footwear (QC): 3 (Pt requiring help to place sock over toes of R foot, though was independent with L foot and pulling up both socks completely. Pt was not receptive to sock aid training this session. ) Toileting Hygiene (QC): 4 (Pt required supervision to complete toilet hygiene in standing and required max cues to complete hygiene thouroughly. Pt confused plastic flap with wet wipe and required max verbal and tactile cues to redirect to use wet wipe. ) Toilet Transfer (QC): 4 (Required supervision to complete transfer with FWW. ) Assessment/Plan Assessment and Plan Assess & Plan/Chief Complaint Assessment: Bilateral ischemic strokes status post thrombolytics with residual aphasia and dysphagia status post PEG tube placement Severe multivessel CAD status post recent high risk intervention at on 11/18/2022 Recent NSTEMI HTN Hx CAD w/ CABG: CABG done in 2011 COPD: O2 dependent Hypercalcemia: obtain PTH, spot urine calcium, ionized calcium, vitamin D levels Angina: none currently, nitro PRN Hypomagnesemia: started on Mg replacement, continue to monitor, replace as needed HLD: resume home statin GERD: currently asymptomatic, antacids as needed UTI dx 12/03/22 Plan: PT and OT Lovenox for DVT prophylaxis PEG tube feeding Speech therapy 12/01/2022: Aggressive rehab Speech therapy Tube feedings 12/02/2022: Supportive care Monitor closely 12/03/2022: Monitor closely 12/04/2022: Placed n.p.o. MAT Protocol (1) CVA (cerebral vascular accident) LORENA OSULLIVAN DO Dec 04, 2022 05:14
[2022-12-04] MEDS: CYANOCOBALAMIN 1,000 MCG TABLET PO SCH (05:50)
[2022-12-04] MEDS: hydrALAZINE 25 MG TABLET PO SCH ×3 (05:50→21:31)
[2022-12-04] MEDS: carvediloL 12.5 MG TABLET NG SCH ×2 (07:46→18:39)
[2022-12-04] MEDS: NS IV 1000 ML 1,000 ML IV SCH (07:54)
[2022-12-04 08:00] VITALS: BP 148/66
--- NOTE | 2022-12-04 09:21 | Speech Therapy Daily Note ---
Speech Daily Progress Note Subjective Date Seen by Provider: Dec 04, 2022 Time Seen by Provider: 07:55 The pt was seen for attempted trial of breakfast meal. Nursing reported new diagnosis of UTI, restlessness through the night with pulling at IV lines and O2 tubing, with report of fall from chair. She was given Valium at 0400 and at 0745 (approximate times). At IVORY CARVER arrival the pt was able to awaken and follow commands for transfer to bedside chair, with full assist needed with nursing. Objective The pt took one bolus of soft scrambled egg. Oral manipulation was minimal despite max cues. Pt eventually instructed to expectorate the bolus. One bolus of thin juice by straw completed, improved right labial movement and seal around straw was observed. The pt was then unable to coordinate lip seal and retrieval for further boluses. Throughout session, the pt had poor initiation for any movement, but did follow commands. Oral care was completed to remove any food stasis with removal and cleaning of dentures. Food trial ended due to patient's decreased mental status. Assessment Assessment Current Status: Regressing UTI and medication resulting in decreased mental status. Treatment Plan Continue Plan of Care Speech Jail Goals Youth Teacher Goals 1. The pt will produce single words with semantic cues with 80% accuracy. 2. The pt will state basic information re: self with 80% accuracy. 3. The pt will utilize augmentative methods of communication with 80% accuracy for basic needs. 4. The pt will write single words with 80% accuracy. 5. The pt will complete labial and lingual ROM exercises with 80% accuracy. Speech-Plan Treatment Plan Speech Therapy Treatment Plan: Continue Plan of Care Treatment Duration: Dec 01, 2022 Frequency: At least 5 of 7 days/Wk (IRF) Estimated Hrs Per Day: 1.5 hours per day Rehab Potential: Good Time Speech Therapy Time In: 07:55 Speech Therapy Time Out: 08:40 DATE: Dec 04, 2022 Total Billed Time: 45 Billed Treatment Time 1 DYST (45 min) LORI PINEDO Dec 04, 2022 09:21
[2022-12-04] MEDS: CEFEPIME INJECTION 1,000 MG in NS (IVPB) 50 ML 50 ML IV SCH ×2 (09:27→15:58)
[2022-12-04] MEDS: SPIRONOLACTONE 25 MG TABLET PO SCH (09:28)
[2022-12-04] MEDS: ASPIRIN 81 MG CHEWABLE TABLET PO SCH (09:28)
[2022-12-04] MEDS: MELOXICAM 7.5 MG TABLET PO SCH (09:28)
[2022-12-04] MEDS: ENOXAPARIN 40 MG/0.4 ML SYRINGE SC SCH (09:28)
[2022-12-04] MEDS: CLOPIDOGREL 75 MG TABLET PO SCH (09:28)
[2022-12-04] MEDS: PREGABALIN 25 MG CAPSULE PO SCH ×3 (09:28→21:31)
[2022-12-04] MEDS: VITAMIN D3 25 MCG (1,000 UNITS) TABLET PO SCH (09:29)
[2022-12-04] MEDS: toPIRamate 25 MG (TOPAMAX) TAB PO SCH (09:29)
[2022-12-04] MEDS: FAMOTIDINE ORAL SUSP 40 MG/5 ML 50 ML PEG SCH (09:29)
[2022-12-04] MEDS: FERROUS SULFATE 325 MG (IRON) TABLET PO SCH (09:29)
[2022-12-04] MEDS: DOCUSATE SODIUM 100 MG/10 ML UDC ORAL SOLN PO SCH ×2 (09:37→20:28)
[2022-12-04] MEDS: SENNA W/DOCUSATE TABLET PO SCH ×2 (09:37→20:28)
[2022-12-04] MEDS: ACETAMINOPHEN 325 MG TABLET PO PRN ×2 (10:18→18:39)
--- NOTE | 2022-12-04 11:52 | Physical Therapy Daily Note ---
PT Daily Note-Current Subjective Pt found seated in recliner /c staff present upon entry. Pt vocabulary is very limited but is able to state name /c OT prompt. Pt places hand on chest multiple times during treatment but is unable to verbalize or write down reasoning. PT/OT co-treatment for safety and skilled intervention of two clinicians. PT focus on gait, standing balance/tolerance, and LE strength. OT focus on functional skills, UE strength, and cognitive function. Pain Section J - Health Conditions 1. Rarely or not at all 2. Occasionally 3. Frequently 4. Almost constantly 8. Unable to answer Pain Effect on Sleep: 2 Pain Interference with Therapy: 2 Pain Interference w/Day-to-Day: 2 Mental Status Patient Orientation: Non-Verbal/Aphasic Attachments: Oxygen, IV 3L Transfers SCALE: Activities may be completed with or without assistive devices. 5-Pslniaixjo-ovlpsra completes the activity by him/herself with no assistance from a helper. 5-Set-up or Clean-up Assistance-helper sets up or cleans up; patient completes activity. [place] assists only prior to or following the activity. 4-Supervision or Touching Assistance-helper provides verbal cues and/or touching/steadying and/or contact guard assistance as patient completes activity. Assistance may be provided throughout the activity or intermittently. 3-Partial/Moderate Assistance-helper does LESS THAN HALF the effort. [place] lifts, holds or supports trunk or limbs, but provides less than half the effort. 2-Substantial/Maximal Assistance-helper does MORE THAN HALF the effort. [place] lifts or holds trunk or limbs and provides more than half the effort. 8-Azgrdvxsf-bdqlit does ALL the effort. Patient does none of the effort to complete the activity. Or, the assistance of 2 or more helpers is required for the patient to complete the activity. If activity was not attempted, code reason: 7-Patient Refused. 9-Not Applicable-not attempted and the patient did not perform the activity before the current illness, exacerbation or injury. 10-Not Attempted due to Environmental Limitations-(lack of equipment, weather restraints, etc.). 88-Not Attempted due to Medical Conditions or Safety Concerns. Sit to Stand (QC): 4 Weight Bearing Right Lower Extremity: Right Full Weight Bearing Left Lower Extremity: Left Full Weight Bearing Gait Training Does the Patient Walk?: Yes Distance: 60, 60 Walk 10 feet (QC): 3 Walk 50 ft with 2 Turns(QC): 3 Gait Persons Needed: 1 Gait Assistive Device: FWW Treatments Standing balloon taps Standing tolerance /c OT led drawing activity Seated Therapeutic Exercises (B) x 10ea: - LAQs - Heel/toe raises - UE exercises: see OT note Assessment Current Status: Good Progress Pt performs sit to stand transfer from recliner /c CGA and verbal cues for push off from armrests. Pt ambulates /c use of a FWW up to 60 feet /c MIN assist to avoid surrounding objects. No loss of balance demonstrated. Pt displays decent step lengths and balance during ambulation. Pt displays overall good tolerance to treatment but does become slightly reluctant to treatment during standing drawing activity and therapeutic exercises. Displays decent standing tolerance and is able to stand for 2+ minutes at a time with no loss of balance. She required MAX verbal cues for proper completion of all therapeutic exercises and displays limited comprehension. Limited B quad strength demonstrated while performing LE exercises. Pt placed in recliner post treatment /c staff present, call light in place, and all needs met. PT Ring Maker Goals Ring Maker Goals PT Ring Maker Goals Time Frame: Dec 21, 2022 Roll Left & Right (QC): 6 (Pt will be Mod I with functional mobility ) Sit to Lying (QC): 6 (Pt will be Mod I with functional mobility ) Lying-Sitting on Side/Bed(QC): 6 (Pt will be Mod I with functional mobility ) Sit to Stand (QC): 6 (Pt will be Mod I with functional mobility ) Chair/Ndk-dd-Tppvm Xfer(QC): 6 (Pt will be Mod I with functional mobility ) Toilet Transfer (QC): 6 (Pt will be Mod I with functional mobility ) Car Transfer (QC): 6 (Pt will be Mod I with functional mobility ) Does the Patient Walk: Yes Walk 10 feet (QC): 6 (Pt will be Mod I with functional mobility ) Walk 50ft with 2 Turns (QC): 6 (Pt will be Mod I with functional mobility ) Walk 150 ft (QC): 6 (Pt will be Mod I with functional mobility ) Walking 10ft on Uneven Surface: 6 (Pt will be Mod I with functional mobility ) 1 Step (curb) (QC): 6 (Pt will be Mod I with functional mobility ) 4 Steps (QC): 6 (Pt will be Mod I with functional mobility ) 12 Steps (QC): 6 (Pt will be Mod I with functional mobility ) Picking up an Object (QC): 6 (Pt will be Mod I with functional mobility (with forestry crew chief) ) Does the Pt use WC or Scooter?: No Wheel 50 feet with 2 turns (QC: 9 Type: N/A Wheel 150 feet: 9 Type: N/A PT Plan Treatment/Plan Treatment Plan: Continue Plan of Care Treatment Plan: Bed Mobility, Education, Functional Activity Lou, Functional Strength, Group Therapy, Gait, Safety, Therapeutic Exercise, Transfers Treatment Duration: Dec 21, 2022 Frequency: At least 5 of 7 days/Wk (IRF) Estimated Hrs Per Day: 1 hour per day Patient and/or Family Agrees t: Yes Time Time In: 1099 Time Out: 1145 DATE: Dec 04, 2022 Total Billed Treatment Time: 45 Total Billed Treatment 1 visit GT x 1 FA x 1 EX x 1 PT/OT co-treatment time: 3261-5938 Total treatment time: 0332-6150 DEANA GALICIA PTA Dec 04, 2022 11:52
--- NOTE | 2022-12-04 12:01 | Occupational Ther Daily Note ---
OT Current Status-Daily Note Subjective Pt alert, sitting in recliner upon arrival with nrsg aid present. Pt agrees to therapy. Pt vocabulary is very limited but is able to state name with OT prompt. Pt places hand on chest multiple times during treatment but is unable to verbalize or write down reasoning. PT/OT co-treatment ([id number]), skills of two clinicians required for safety, skilled intervention, and management of 02 cord and IV. PT focus on gait, standing balance/tolerance, and LE strength for daily functional tasks. OT focus on functional skills, UE strength, and cognitive function for daily functional tasks. Mental Status/Objective Patient Orientation: Person, Unable to Assess, Non-Verbal/Aphasic, Eyes Open Attachments: IV, Oxygen ADL-Treatment Therapy Code Descriptions/Definitions Functional [place] Measure: 0=Not Assessed/NA 4=Minimal Assistance 1=Total Assistance 5=Supervision or Setup 2=Maximal Assistance 6=Modified [place] 3=Moderate Assistance 7=Complete IndependenceSCALE: Activities may be completed with or without assistive devices. 5-Vtjxbqersi-dyhmypl completes the activity by him/herself with no assistance from a helper. 5-Set-up or Clean-up Assistance-helper sets up or cleans up; patient completes activity. [place] assists only prior to or following the activity. 4-Supervision or Touching Assistance-helper provides verbal cues and/or touching/steadying and/or contact guard assistance as patient completes activity. Assistance may be provided throughout the activity or intermittently. 3-Partial/Moderate Assistance-helper does LESS THAN HALF the effort. [place] lifts, holds or supports trunk or limbs, but provides less than half the effort. 2-Substantial/Maximal Assistance-helper does MORE THAN HALF the effort. [place] lifts or holds trunk or limbs and provides more than half the effort. 6-Knxhwdzfs-lbojzg does ALL the effort. Patient does none of the effort to complete the activity. Or, the assistance of 2 or more helpers is required for the patient to complete the activity. If activity was not attempted, code reason: 7-Patient Refused. 9-Not Applicable-not attempted and the patient did not perform the activity before the current illness, exacerbation or injury. 10-Not Attempted due to Environmental Limitations-(lack of equipment, weather restraints, etc.). 88-Not Attempted due to Medical Conditions or Safety Concerns. Nrsg aid stated that pt wanted to get dressed this morning with help from aid. Nrsg aid did not mention level of assistance required. Other Treatment Pt required multiple VCs for problem solving and safety concerns during all functional tasks and transfers. Pt able to follow 1-step directions 90% of the time.Pt ambulated from room to therapy gym with FWW, CGA from BUSINESS PROCESS ENGINEER. OTAS behind managing 02 and IV. Pt in gym working on balloon toss to increase B UE AROM, dynamic standing balance, activity tolerance, and standing tolerance for daily functional tasks. Pt then completed cognitive functional task while standing. Pt working on following 1-step directions, standing tolerance, and fine motor skills for daily functional tasks. PT then focusing on B LE exercises, see PT note for more information. OT focusing on B UE exercises against gravity for daily functional tasks. Pt displayed difficulty repeating exercise movements after demonstration and lybz-gtot-vnmh. Pt ambulated back to room with FWW, CGA. Ended session with pt sitting in recliner with call light in reach and nrsg aid present. All needs met. Education OT Patient Education: Correct positioning, Safety issues, Transfer techniques Teaching Recipient: Patient Teaching Methods: Demonstration, Discussion Response to Teaching: Verbalize Understanding, Return Demonstration, Reinforcement Needed Able to demonstrate understanding inconsistently. OT Short Term Goals Short Term Goals Time Frame: Dec 07, 2022 Eatin Oral hygiene: 5 Toileting hygiene: 5 Shower/bathe self: 4 Upper body dressin Lower body dressin Putting on/taking off footwear: 6 OT Trim Installer Goals Trim Installer Goals Acute change in mental status: 1 Inattention: 2 Disorganized thinkin Altered level of consciousness: 0 Eating (QC): 6 Oral Hygiene (QC): 6 Toileting Hygiene (QC): 6 Shower/Bathe Self (QC): 6 Upper Body Dressing (QC): 6 Lower Body Dressing (QC): 6 On/Off Footwear (QC): 6 Pt will demonstrate 4/5 RUE strength. 1=Demonstrate adherence to instructed precautions during ADL tasks. 2=Patient will verbalize/demonstrate understanding of assistive devices/modifications for ADL. 3=Patient will improve strength/tolerance for activity to enable patient to perform ADL's. OT Education/Plan Problem List/Assessment Assessment: Decreased Activ Tolerance, Decreased Safety Aware, Decreased UE Strength, Impaired Funct Balance, Impaired Self-Care Skills Discharge Recommendations Plan/Recommendations: Continue POC Treatment Plan/Plan of Care Patient would benefit from OT for education, treatment and training to promote independence in ADL's, mobility, safety and/or upper extremity function for ADL's. Plan of Care: ADL Retraining, Caregiver Training, Concurrent Therapy, Functional Mobility, Group Exercise/Act as Ind, UE Funct Exercise/Act, UE Neuromus Re-Ed/Coord Treatment Duration: Dec 18, 2022 Frequency: At least 5 of 7 days/Wk (IRF) Estimated Hrs Per Day: Other (45mins/day) Agreement: Yes Rehab Potential: Good Time Start Time: 11:00 Stop Time: 11:45 DATE: Dec 04, 2022 Total Time Billed (hr/min): 45 Billed Treatment Time 1 visit- FA 2 (30 min) EX (15 mins). OT/PT Cotx ([id number]) ANA CONTRERAS Dec 04, 2022 12:01
--- NOTE | 2022-12-04 15:07 | Speech Therapy Daily Note ---
Speech Daily Progress Note Subjective Date Seen by Provider: Dec 04, 2022 Time Seen by Provider: 13:00 The pt was awake, with poor-fair alertness. Objective Object recognition was targeted, the pt was unable to choose objects from a field of 2. She was unable to make food choices for lunch meal between 2 items, did indicate y/n to individual items. The pt was mostly non-verbal through session, with only 2 words elicited. Functional commands were completed with poor accuracy, with non-purposeful fidgeting with items. Swallow: ground chicken, chopped green beans, and cottage cheese were trialed. The pt was unable to control right pocketing, or follow commands to clear cheek with physical removal needed after 4 boluses. The pt required feeding, as she did not complete sequence of loading spoon and bringing to her mouth. Minimal intake completed before the pt refused any further food. Nsg notified of intake amount, TF to be completed. Assessment Assessment Current Status: Regressing Continued decline in status as of this date. Treatment Plan Continue Plan of Care Speech Alf Goals Imaging Manager Goals 1. The pt will produce single words with semantic cues with 80% accuracy. 2. The pt will state basic information re: self with 80% accuracy. 3. The pt will utilize augmentative methods of communication with 80% accuracy for basic needs. 4. The pt will write single words with 80% accuracy. 5. The pt will complete labial and lingual ROM exercises with 80% accuracy. Speech-Plan Treatment Plan Speech Therapy Treatment Plan: Continue Plan of Care Treatment Duration: Dec 01, 2022 Frequency: At least 5 of 7 days/Wk (IRF) Estimated Hrs Per Day: 1.5 hours per day Rehab Potential: Good Time Speech Therapy Time In: 13:00 Speech Therapy Time Out: 14:10 DATE: Dec 04, 2022 Total Billed Time: 70 Billed Treatment Time 1 SLTS (20 min) 1 DYST (50 min) Additional treatment time needed due to slow patient response time for PO intake LORI PINEDO Dec 04, 2022 15:07
[2022-12-04 15:38] VITALS: BP 140/65
[2022-12-04 16:22] VITALS: BP 140/65
--- NOTE | 2022-12-04 16:33 | Diagnostic Imaging Report ---
INDICATION: Confusion, wheezing. COMPARISON: 11/22/2022. FINDINGS: There is a persistent and increased opacity laterally in the right lung base, suspect for worsened pneumonia. There is blunting of the angles, likely small pleural effusions. This is likely new on the left and similar on the right. The heart size is upper limits but stable. IMPRESSION: Increased opacity at the right lung base laterally, suspect for pneumonia, with stable small right and new small left pleural effusions. Dictated by: Dictated on workstation # [id number]
[2022-12-04 20:04] VITALS: BP 145/64
[2022-12-04] MEDS: RT-Ipratropium/Albuterol NEB 3 ML VIAL INH SCH (20:32)
[2022-12-05] MEDS: NS IV 1000 ML 1,000 ML IV SCH ×2 (00:34→15:48)
[2022-12-05] MEDS: CEFEPIME INJECTION 1,000 MG in NS (IVPB) 50 ML 50 ML IV SCH ×3 (00:34→15:48)
[2022-12-05] MEDS: RT-Ipratropium/Albuterol NEB 3 ML VIAL INH SCH ×4 (03:14→20:58)
[2022-12-05] MEDS: CYANOCOBALAMIN 1,000 MCG TABLET PO SCH (06:07)
[2022-12-05] MEDS: hydrALAZINE 25 MG TABLET PO SCH ×3 (06:07→21:17)
[2022-12-05] MEDS: VITAMIN D3 25 MCG (1,000 UNITS) TABLET PO SCH (08:51)
[2022-12-05] MEDS: ASPIRIN 81 MG CHEWABLE TABLET PO SCH (08:52)
[2022-12-05] MEDS: CLOPIDOGREL 75 MG TABLET PO SCH (08:52)
[2022-12-05] MEDS: SPIRONOLACTONE 25 MG TABLET PO SCH (08:52)
[2022-12-05] MEDS: FERROUS SULFATE 325 MG (IRON) TABLET PO SCH (08:52)
[2022-12-05] MEDS: carvediloL 12.5 MG TABLET NG SCH ×2 (08:52→18:17)
[2022-12-05] MEDS: MELOXICAM 7.5 MG TABLET PO SCH (08:52)
[2022-12-05] MEDS: PREGABALIN 25 MG CAPSULE PO SCH ×3 (08:52→21:17)
[2022-12-05] MEDS: toPIRamate 25 MG (TOPAMAX) TAB PO SCH (08:52)
[2022-12-05] MEDS: ENOXAPARIN 40 MG/0.4 ML SYRINGE SC SCH (08:53)
[2022-12-05] MEDS: FAMOTIDINE ORAL SUSP 40 MG/5 ML 50 ML PEG SCH (08:53)
[2022-12-05] MEDS: IRON SUCROSE 200 MG/10 ML VIAL IV SCH (08:53)
[2022-12-05 08:56] VITALS: BP 137/59
[2022-12-05] MEDS: DOCUSATE SODIUM 100 MG/10 ML UDC ORAL SOLN PO SCH ×2 (09:00→19:35)
[2022-12-05] MEDS: SENNA W/DOCUSATE TABLET PO SCH ×2 (09:00→19:36)
--- NOTE | 2022-12-05 09:00 | PM&R Progress Note ---
Subjective HPI/CC On Admission Date Seen by Provider: Dec 05, 2022 Time Seen by Provider: 09:00 Subjective/Events-last exam 12/05/2022: Doing about the same Minimal effort in therapy No falls Telesitter in place O2 maintained 12/04/2022: Had an aspiration episode this afternoon Chest x-ray shows possible pneumonia Met protocol maintain 12/03/2022: Having some delayed movements and "fuzziness" CT head obtained and no new issues and labs stable but UTI dx Cefepime ordered 12/02/2022: Patient in good mood Ambulating pretty well Tolerating tube feedings Speech therapy is working with her 12/01/2022: Patient up and alert Patient doing well Tube feedings tolerated Speech therapy consulted Overall weakness improved Review of Systems General: Fatigue, Malaise Objective Exam Vital Signs Vital Signs Date Time Temp Pulse Resp B/P (MAP) Pulse Ox O2 Delivery O2 Flow Rate FiO2 12/05/22 14:24 96 Nasal Cannula 4.00 12/05/22 08:56 36.2 76 14 137/59 (85) Capillary Refill : General Appearance: No Apparent Distress, WD/WN, Chronically ill, Obese HEENT: PERRL/EOMI, TMs Normal, Normal ENT Inspection, Pharynx Normal Neck: Full Range of Motion, Normal Inspection, Non Tender, Supple, Carotid Bruit Respiratory: Chest Non Tender, Lungs Clear, Normal Breath Sounds, No Accessory Muscle Use, No Respiratory Distress Cardiovascular: Regular Rate, Rhythm, No Edema, No Gallop, No JVD, No Murmur, Normal Peripheral Pulses Gastrointestinal: Normal Bowel Sounds, No Organomegaly, No Pulsatile Mass, Non Tender, Soft Back: Normal Inspection, No CVA Tenderness, No Vertebral Tenderness Extremity: Normal Capillary Refill, Normal Inspection, Normal Range of Motion, Non Tender, No Calf Tenderness, No Pedal Edema Neurologic/Psychiatric: Alert, Oriented x3, Normal Mood/Affect, Aphasia, Depressed Affect, Facial Droop ( right), Motor Weakness ( right-sided) Skin: Normal Color, Warm/Dry Lymphatic: No Adenopathy Results/Procedures Lab Patient resulted labs reviewed. FIM Transfers Therapy Code Descriptions/Definitions Functional [place] Measure: 0=Not Assessed/NA 4=Minimal Assistance 1=Total Assistance 5=Supervision or Setup 2=Maximal Assistance 6=Modified [place] 3=Moderate Assistance 7=Complete IndependenceSCALE: Activities may be completed with or without assistive devices. 2-Qsrhwuxrjk-zqeqqar completes the activity by him/herself with no assistance from a helper. 5-Set-up or Clean-up Assistance-helper sets up or cleans up; patient completes activity. [place] assists only prior to or following the activity. 4-Supervision or Touching Assistance-helper provides verbal cues and/or touching/steadying and/or contact guard assistance as patient completes activity. Assistance may be provided throughout the activity or intermittently. 3-Partial/Moderate Assistance-helper does LESS THAN HALF the effort. Supply lifts, holds or supports trunk or limbs, but provides less than half the effort. 2-Substantial/Maximal Assistance-helper does MORE THAN HALF the effort. Supply lifts or holds trunk or limbs and provides more than half the effort. 6-Upxuocoww-mdogxy does ALL the effort. Patient does none of the effort to complete the activity. Or, the assistance of 2 or more helpers is required for the patient to complete the activity. If activity was not attempted, code reason: 7-Patient Refused. 9-Not Applicable-not attempted and the patient did not perform the activity before the current illness, exacerbation or injury. 10-Not Attempted due to Environmental Limitations-(lack of equipment, weather restraints, etc.). 88-Not Attempted due to Medical Conditions or Safety Concerns. Roll Left to Right (QC): 4 (SBA ) Sit to Lying (QC): 4 (SBA ) Sit to Stand (QC): 4 Chair/Wfn-pf-[place] Xfer(QC): 4 Car Transfer (QC): 4 (SBA ) Gait Training Does the Patient Walk?: Yes Distance: 60, 60 Walk 10 feet (QC): 3 Walk 50 ft with 2 Turns(QC): 3 Walk 150 ft (QC): 3 Walking 10ft/uneven surface-QC: 4 (CGA ) Gait Persons Needed: 1 Gait Assistive Device: FWW Wheelchair Training Does the Pt Use a Wheelchair?: No Wheel 50 ft with 2 turns (QC): 9 Wheel 150 ft (QC): 9 Type of Wheelchair: N/A Stair Training #of Steps: 12 1 Step (curb) (QC): 4 (CGA ) 4 Steps (QC): 4 (CGA ) 12 Steps (QC): 4 (CGA ) Balance Picking up an Object (QC): 4 (CGA with inside sales engineer ) ADL-Treatment Eating (QC): 3 Oral Hygiene (QC): 3 (Pt requiring max cues for sequencing and follow through with brushing teeth.) Shower/Bathe Self (QC): 2 Upper Body Dressing (QC): 3 (Pt requiring max cues for sequencing donning and doffing shirt. Pt requiring mod A to thread arms through correct holes and pull shirt down over back and abdomen. ) Lower Body Dressing (QC): 2 (Pt requiring max A to don and doff pants and briefs. Required max cues to sequence activity. Attempted to introduce inside sales engineer to increase independence, though pt was not receptive to the education. Required assistance to thread legs with both briefs and pants and to pull up pants over bottom completely. ) On/Off Footwear (QC): 3 (Pt requiring help to place sock over toes of R foot, though was independent with L foot and pulling up both socks completely. Pt was not receptive to sock aid training this session. ) Toileting Hygiene (QC): 4 (Pt required supervision to complete toilet hygiene in standing and required max cues to complete hygiene thouroughly. Pt confused plastic flap with wet wipe and required max verbal and tactile cues to redirect to use wet wipe. ) Toilet Transfer (QC): 4 (Required supervision to complete transfer with FWW. ) Assessment/Plan Assessment and Plan Assess & Plan/Chief Complaint Assessment: Bilateral ischemic strokes status post thrombolytics with residual aphasia and dysphagia status post PEG tube placement Severe multivessel CAD status post recent high risk intervention at on 11/18/2022 Recent NSTEMI HTN Hx CAD w/ CABG: CABG done in 2011 COPD: O2 dependent Hypercalcemia: obtain PTH, spot urine calcium, ionized calcium, vitamin D levels Angina: none currently, nitro PRN Hypomagnesemia: started on Mg replacement, continue to monitor, replace as needed HLD: resume home statin GERD: currently asymptomatic, antacids as needed UTI dx 12/03/22 Aspiration episode 12/04/2022 Plan: PT and OT Lovenox for DVT prophylaxis PEG tube feeding Speech therapy 12/01/2022: Aggressive rehab Speech therapy Tube feedings 12/02/2022: Supportive care Monitor closely 12/03/2022: Monitor closely 12/04/2022: Placed n.p.o. MAT Protocol 12/05/2022: CXR noted Monitor closely (1) CVA (cerebral vascular accident) LORENA OSULLIVAN DO Dec 05, 2022 09:00
[2022-12-05 20:00] VITALS: BP 140/60
[2022-12-06] MEDS: CEFEPIME INJECTION 1,000 MG in NS (IVPB) 50 ML 50 ML IV SCH ×2 (00:41→08:38)
[2022-12-06] MEDS: RT-Ipratropium/Albuterol NEB 3 ML VIAL INH SCH ×2 (01:57→07:10)
[2022-12-06] MEDS: hydrALAZINE 25 MG TABLET PO SCH (06:10)
[2022-12-06] MEDS: CYANOCOBALAMIN 1,000 MCG TABLET PO SCH (06:10)
[2022-12-06] MEDS: ACETAMINOPHEN 325 MG TABLET PO PRN (06:11)
[2022-12-06] MEDS: NS IV 1000 ML 1,000 ML IV SCH ×2 (06:11→11:51)
[2022-12-06 08:00] VITALS: BP 123/83
[2022-12-06] MEDS: MELOXICAM 7.5 MG TABLET PO SCH (08:58)
[2022-12-06] MEDS: FERROUS SULFATE 325 MG (IRON) TABLET PO SCH (08:58)
[2022-12-06] MEDS: ASPIRIN 81 MG CHEWABLE TABLET PO SCH (08:58)
[2022-12-06] MEDS: VITAMIN D3 25 MCG (1,000 UNITS) TABLET PO SCH (08:58)
[2022-12-06] MEDS: CLOPIDOGREL 75 MG TABLET PO SCH (08:59)
[2022-12-06] MEDS: toPIRamate 25 MG (TOPAMAX) TAB PO SCH (08:59)
[2022-12-06] MEDS: PREGABALIN 25 MG CAPSULE PO SCH (08:59)
[2022-12-06] MEDS: carvediloL 12.5 MG TABLET NG SCH (08:59)
[2022-12-06] MEDS: FAMOTIDINE ORAL SUSP 40 MG/5 ML 50 ML PEG SCH (09:00)
[2022-12-06] MEDS: SPIRONOLACTONE 25 MG TABLET PO SCH (09:00)
[2022-12-06] MEDS: DOCUSATE SODIUM 100 MG/10 ML UDC ORAL SOLN PO SCH (09:06)
[2022-12-06] MEDS: SENNA W/DOCUSATE TABLET PO SCH (09:06)
[2022-12-06] MEDS: ENOXAPARIN 40 MG/0.4 ML SYRINGE SC SCH (12:09)
--- NOTE | 2022-12-06 12:10 | Discharge Summary ---
Diagnosis/Chief Complaint Date of Admission Nov 30, 2022 at 13:58 Date of Discharge Discharge Date: Dec 06, 2022 Discharge Diagnosis Assessment: Complete decompensation without chance of recovery prompting transfer to acute on comfort care after speaking to spouse at bedside Bilateral ischemic strokes status post thrombolytics with residual aphasia and dysphagia status post PEG tube placement Severe multivessel CAD status post recent high risk intervention at on 11/18/2022 Recent NSTEMI HTN Hx CAD w/ CABG: CABG done in 2011 COPD: O2 dependent Hypercalcemia: obtain PTH, spot urine calcium, ionized calcium, vitamin D levels Angina: none currently, nitro PRN Hypomagnesemia: started on Mg replacement, continue to monitor, replace as needed HLD: resume home statin GERD: currently asymptomatic, antacids as needed UTI dx 12/03/22 Aspiration episode 12/04/2022 Plan: PT and OT Lovenox for DVT prophylaxis PEG tube feeding Speech therapy 12/01/2022: Aggressive rehab Speech therapy Tube feedings 12/02/2022: Supportive care Monitor closely 12/03/2022: Monitor closely 12/04/2022: Placed n.p.o. MAT Protocol 12/05/2022: CXR noted Monitor closely (1) CVA (cerebral vascular accident) Discharge Summary Discharge Physical Examination Allergies: Coded Allergies: amlodipine (Verified Allergy, Intermediate, Rash, 07/15/22) Sulfa (Sulfonamide Antibiotics) (Verified Allergy, Unknown, 07/09/22) Vitals & I&Os Vital Signs Date Time Temp Pulse Resp B/P (MAP) Pulse Ox O2 Delivery O2 Flow Rate FiO2 12/06/22 11:22 99 Nasal Cannula 4.00 12/06/22 08:00 36.9 75 18 123/83 (96) General Appearance: Other (lethargic, semi-comatose) Hospital Course Was the Problem List Reviewed?: Yes Standard course after she was admitted following intervention at then sustained a CVA with aphasia and right sided weakness. Patient initially was doing well until gradually she became declined and had an aspiration episode and UTI dx so abx maintained along with IVF but she continued to decline and in my opinion she had appeared end-stage when I took care of her in ICU 4 before going to for CAD intervention and it appeared she was not going to recover and spouse at bedside "had figured that out on my own before you walked in" and the decision was made to place her on 4th floor an comfort care ordered placed. Labs (last 24 hrs) Laboratory Tests 12/01/22 05:38: White Blood Count 7.9, Red Blood Count 2.54L, Hemoglobin 7.4L, Hematocrit 24L, Mean Corpuscular Volume 95, Mean Corpuscular Hemoglobin 29, Mean Corpuscular Hemoglobin Concent 31L, Red Cell Distribution Width 13.0, Platelet Count 196, Mean Platelet Volume 12.2, Immature Granulocyte % (Auto) 0, Neutrophils (%) (Auto) 67, Lymphocytes (%) (Auto) 20, Monocytes (%) (Auto) 10, Eosinophils (%) (Auto) 3, Basophils (%) (Auto) 1, Neutrophils # (Auto) 5.2, Lymphocytes # (Auto) 1.5, Monocytes # (Auto) 0.8, Eosinophils # (Auto) 0.2, Basophils # (Auto) 0.0, Immature Granulocyte # (Auto) 0.0, Sodium Level 136, Potassium Level 4.4, Chloride Level 96L, Carbon Dioxide Level 30, Anion Gap 10, Blood Urea Nitrogen 24H, Creatinine 0.95, Estimat Glomerular Filtration Rate 62, BUN/Creatinine Ratio 25, Glucose Level 99, Calcium Level 9.7, Corrected Calcium 10.3H, Iron Level 33, Total Bilirubin 0.3, Aspartate Amino Transf (AST/SGOT) 17, Alanine Aminotransferase (ALT/SGPT) 16, Alkaline Phosphatase 61, Total Protein 5.8L, Albumin 3.2, Vitamin B12 Level 321 12/03/22 10:51: White Blood Count 11.0, Red Blood Count 2.50L, Hemoglobin 7.3L, Hematocrit 24L, Mean Corpuscular Volume 97, Mean Corpuscular Hemoglobin 29, Mean Corpuscular Hemoglobin Concent 30L, Red Cell Distribution Width 13.2, Platelet Count 165, Mean Platelet Volume 12.5H, Immature Granulocyte % (Auto) 1, Neutrophils (%) (Auto) 81H, Lymphocytes (%) (Auto) 9L, Monocytes (%) (Auto) 8, Eosinophils (%) (Auto) 2, Basophils (%) (Auto) 0, Neutrophils # (Auto) 8.8H, Lymphocytes # (Auto) 0.9L, Monocytes # (Auto) 0.9, Eosinophils # (Auto) 0.2, Basophils # (Auto) 0.0, Immature Granulocyte # (Auto) 0.1, Sodium Level 129L, Potassium Level 5.1H, Chloride Level 90L, Carbon Dioxide Level 31, Anion Gap 8, Blood Urea Nitrogen 31H, Creatinine 1.10, Estimat Glomerular Filtration Rate 52, BUN/Creatinine Ratio 28, Glucose Level 140H, Calcium Level 10.1, Corrected Calcium 10.7H, Total Bilirubin 0.3, Aspartate Amino Transf (AST/SGOT) 19, Alanine Aminotransferase (ALT/SGPT) 19, Alkaline Phosphatase 68, Total Protein 5.8L, Albumin 3.3 12/03/22 13:15: Urine Color YELLOW, Urine Clarity CLOUDYH, Urine pH 6.5, Urine Specific [place] 1.020, Urine Protein 2+H, Urine Glucose (UA) NEGATIVE, Urine Ketones NEGATIVE, Urine Nitrite NEGATIVE, Urine Bilirubin NEGATIVE, Urine Urobilinogen 0.2, Urine Leukocyte Esterase 3+H, Urine RBC (Auto) 2+H, Urine RBC 5-10H, Urine WBC TNTCH, Urine Crystals NONE, Urine Bacteria LARGEH, Urine Casts NONE, Urine Mucus NEGATIVE, Urine Culture Indicated YES Microbiology 12/03/22 Urine Culture - Final, Complete Pseudomonas aeruginosa Mixed Bacterial Flori See Comments Pending Labs Microbiology Date/Time Source Procedure Growth Status 12/03/22 13:15 Urine Straight Cath, In/Out Urine Culture - Final Pseudomonas aeruginosa Mixed Bacterial Flori See Comments Complete Laboratory Tests 12/01/22 05:38: White Blood Count 7.9, Red Blood Count 2.54, Hemoglobin 7.4, Hematocrit 24, Mean Corpuscular Volume 95, Mean Corpuscular Hemoglobin 29, Mean Corpuscular Hemoglobin Concent 31, Red Cell Distribution Width 13.0, Platelet Count 196, Mean Platelet Volume 12.2, Immature Granulocyte % (Auto) 0, Neutrophils (%) (Auto) 67, Lymphocytes (%) (Auto) 20, Monocytes (%) (Auto) 10, Eosinophils (%) (Auto) 3, Basophils (%) (Auto) 1, Neutrophils # (Auto) 5.2, Lymphocytes # (Auto) 1.5, Monocytes # (Auto) 0.8, Eosinophils # (Auto) 0.2, Basophils # (Auto) 0.0, Immature Granulocyte # (Auto) 0.0, Sodium Level 136, Potassium Level 4.4, Chloride Level 96, Carbon Dioxide Level 30, Anion Gap 10, Blood Urea Nitrogen 24, Creatinine 0.95, Estimat Glomerular Filtration Rate 62, BUN/Creatinine Ratio 25, Glucose Level 99, Calcium Level 9.7, Corrected Calcium 10.3, Iron Level 33, Total Bilirubin 0.3, Aspartate Amino Transf (AST/SGOT) 17, Alanine Aminotransferase (ALT/SGPT) 16, Alkaline Phosphatase 61, Total Protein 5.8, Albumin 3.2, Vitamin B12 Level 321 12/03/22 10:51: White Blood Count 11.0, Red Blood Count 2.50, Hemoglobin 7.3, Hematocrit 24, Mean Corpuscular Volume 97, Mean Corpuscular Hemoglobin 29, Mean Corpuscular Hemoglobin Concent 30, Red Cell Distribution Width 13.2, Platelet Count 165, Mean Platelet Volume 12.5, Immature Granulocyte % (Auto) 1, Neutrophils (%) (Auto) 81, Lymphocytes (%) (Auto) 9, Monocytes (%) (Auto) 8, Eosinophils (%) (Auto) 2, Basophils (%) (Auto) 0, Neutrophils # (Auto) 8.8, Lymphocytes # (Auto) 0.9, Monocytes # (Auto) 0.9, Eosinophils # (Auto) 0.2, Basophils # (Auto) 0.0, Immature Granulocyte # (Auto) 0.1, Sodium Level 129, Potassium Level 5.1, Chloride Level 90, Carbon Dioxide Level 31, Anion Gap 8, Blood Urea Nitrogen 31, Creatinine 1.10, Estimat Glomerular Filtration Rate 52, BUN/Creatinine Ratio 28, Glucose Level 140, Calcium Level 10.1, Corrected Calcium 10.7, Total Bilirubin 0.3, Aspartate Amino Transf (AST/SGOT) 19, Alanine Aminotransferase (ALT/SGPT) 19, Alkaline Phosphatase 68, Total Protein 5.8, Albumin 3.3 12/03/22 13:15: Urine Color YELLOW, Urine Clarity CLOUDY, Urine pH 6.5, Urine Specific [place] 1.020, Urine Protein 2+, Urine Glucose (UA) NEGATIVE, Urine Ketones NEGATIVE, Urine Nitrite NEGATIVE, Urine Bilirubin NEGATIVE, Urine Urobilinogen 0.2, Urine Leukocyte Esterase 3+, Urine RBC (Auto) 2+, Urine RBC 5-10, Urine WBC TNTC, Urine Crystals NONE, Urine Bacteria LARGE, Urine Casts NONE, Urine Mucus NE GATIVE, Urine Culture Indicated YES Discharge Home Medications: Active Scripts Active Reported Dicyclomine HCl 10 Mg Capsule 10-20 Mg PO QID Topamax (Topiramate) 25 Mg Tablet 25 Mg PO DAILY Nitroglycerin 0.4 Mg Tab.subl 0.4 Mg SL UD PRN Lisinopril 20 Mg Tablet 40 Mg PO DAILY TAKES 2 (20MG) TABS Ferrous Sulfate 325 Mg (65 Mg Iron) Tablet 325 Mg PO DAILY TAKE ON AN EMPTY STOMACH AT LEAST 1 HOUR BEFORE OR 2 HOURS AFTER FOOD Famotidine 40 Mg/5 Ml (8 Mg/Ml) Oral.susp 2.5 Ml FEEDING BID Stool Softener (Docusate Sodium) 50 Mg/5 Ml Liquid 10 Ml PO BID Clopidogrel (Clopidogrel Bisulfate) 75 Mg Tablet 75 Mg PO DAILY Clonidine HCl 0.1 Mg Tablet 0.1 Mg PO Q4H PRN Clonidine TTS 2 Patch (Clonidine) 0.2 Mg/24 Hour Patch.tdwk 1 Patch TD Q7D Vitamin D3 (Cholecalciferol (Vitamin D3)) 25 Mcg (1000 Unit) Tablet 125 Mcg PO DAILY TAKES 5 (25MCG) TABS Carvedilol 25 Mg Tablet 25 Mg NG BID WITH MEALS Atorvastatin Calcium 80 Mg Tablet 80 Mg NG HS Pregabalin 25 Mg Capsule 25 Mg PO TID Aldactone (Spironolactone) 50 Mg Tablet 50 Mg PO DAILY Hydralazine HCl 25 Mg Tablet 50 Mg PO Q8H TAKES 2 (25MG) TABS Aspirin EC (Aspirin) 81 Mg Tablet.dr 81 Mg PO DAILY Meloxicam 15 Mg Tablet 15 Mg PO DAILY Diazepam 5 Mg Tablet 5 Mg PO TID PRN Ventolin Hfa (Albuterol Sulfate) 8.5 Gm Hfa.aer.ad 2 Puff IH Q4H PRN Instructions to patient/family Please see electronic discharge instructions given to patient. Diagnosis/Problems Diagnosis/Problems (1) CVA (cerebral vascular accident) LORENA OSULLIVAN DO Dec 06, 2022 12:10
--- NOTE | 2022-12-07 09:38 | Therapy Team Discharge Summary ---
Therapy Discharge Summary Discharge Recommendations Date of Discharge Dec 06, 2022 at 13:30 Physical Therapy Roll Left to Right (QC): 4 (SBA ) Sit to Lying (QC): 4 (SBA ) Lying to Sitting/Side of Bed(Q: 4 Sit to Stand (QC): 4 Chair/Vvi-jz-Npxvf Xfer(QC): 4 Toilet Transfer (QC): 88 Car Transfer (QC): 4 (SBA ) Does the Patient Walk: Yes Mode of Locomotion: Walk Anticipated Mode of Locomotion: Walk Walk 10 feet (QC): 3 Walk 50 ft with 2 Turns(QC): 3 Walk 150 ft (QC): 3 Walking 10ft on uneven surface: 4 (CGA ) Gait Assistive Device: FWW Does the Pt Use a Wheelchair: No Wheel 50 ft with 2 turns (QC): 9 Wheel 150 ft (QC): 9 Type of Wheelchair: N/A #of Steps: 12 1 Step (curb) (QC): 4 (CGA ) 4 Steps (QC): 4 (CGA ) 12 Steps (QC): 4 (CGA ) Walking Assistive Device: Walker Balance Sitting Static: Good Balance Sitting Dynamic: Good Balance-Standing Static: Fair Picking up an Object (QC): 4 (CGA with chief compressor station engineer ) Occupational Therapy Pt admitted to ARU s/p CVA. At [facility], pt was independent with ADLS. Upon initial evaluation, pt required partial assistance with eating, UBD, and LBD, set up oral care and footwear, max A showering, and steadying assistance with toileting. OT Tx focused on neuromuscular reeducation, increasing BUE strength and activity tolerance, and increasing safety and independence with ADLS and functional mobility. Pt did not make progress towards goals prior to discharging. Pt transferred from ARU to acute floor on comfort care due to complete decompensation without chance of recovery. Pt discharged from ARU, d/c from OT. Decreased Activ Tolerance, Decreased Safety Aware, Decreased UE Strength, Impaired Funct Balance, Impaired Self-Care Skills Eating (QC): 3 Oral Hygiene (QC): 3 (Pt requiring max cues for sequencing and follow through with brushing teeth.) Shower/Bathe Self (QC): 2 Upper Body Dressing (QC): 3 (Pt requiring max cues for sequencing donning and doffing shirt. Pt requiring mod A to thread arms through correct holes and pull shirt down over back and abdomen. ) Lower Body Dressing (QC): 2 (Pt requiring max A to don and doff pants and briefs. Required max cues to sequence activity. Attempted to introduce chief compressor station engineer to increase independence, though pt was not receptive to the education. Required assistance to thread legs with both briefs and pants and to pull up pants over bottom completely. ) On/Off Footwear (QC): 3 (Pt requiring help to place sock over toes of R foot, though was independent with L foot and pulling up both socks completely. Pt was not receptive to sock aid training this session. ) Toileting Hygiene (QC): 4 (Pt required supervision to complete toilet hygiene in standing and required max cues to complete hygiene thouroughly. Pt confused plastic flap with wet wipe and required max verbal and tactile cues to redirect to use wet wipe. ) PT Skilled Nursing Goals Shot Polisher And Inspector Goals PT Skilled Nursing Goals Time Frame: Dec 21, 2022 Roll Left to Right (QC): 6 (Pt will be Mod I with functional mobility ) Sit to Lying (QC): 6 (Pt will be Mod I with functional mobility ) Lying-Sitting on Side/Bed(QC): 6 (Pt will be Mod I with functional mobility ) Sit to Stand (QC): 6 (Pt will be Mod I with functional mobility ) Chair/Rcw-ku-Miaro Xfer(QC): 6 (Pt will be Mod I with functional mobility ) Toilet/Commode Transfer (QC): 6 (Pt will be Mod I with functional mobility ) Car Transfer (QC): 6 (Pt will be Mod I with functional mobility ) Does the Patient Walk: Yes Walk 10 feet (QC): 6 (Pt will be Mod I with functional mobility ) Walk 10ft-Uneven Surface(QC): 6 (Pt will be Mod I with functional mobility ) Walk 50ft with 2 Turns (QC): 6 (Pt will be Mod I with functional mobility ) Walk 150 ft (QC): 6 (Pt will be Mod I with functional mobility ) Does the Pt use WC or Scooter?: No Wheel 50 feet with 2 turns (QC: 9 Type: N/A Wheel 150 feet: 9 Type: N/A 1 Step (curb) (QC): 6 (Pt will be Mod I with functional mobility ) 4 Steps (QC): 6 (Pt will be Mod I with functional mobility ) 12 Steps (QC): 6 (Pt will be Mod I with functional mobility ) Picking up an Object (QC): 6 (Pt will be Mod I with functional mobility (with chief compressor station engineer) ) OT Shot Polisher And Inspector Goals Shot Polisher And Inspector Goals Eating (QC): 6 (not met) Oral Hygiene (QC): 6 (not met) Toileting Hygiene (QC): 6 (not met) Shower/Bathe Self (QC): 6 (not met) Upper Body Dressing (QC): 6 (not met) Lower Body Dressing (QC): 6 (not met) On/Off Footwear (QC): 6 (not met) Pt will demonstrate 4/5 RUE strength. 1=Demonstrate adherence to instructed precautions during ADL tasks. 2=Patient will verbalize/demonstrate understanding of assistive devices/modifications for ADL. 3=Patient will improve strength/tolerance for activity to enable patient to perform ADL's. Speech Shot Polisher And Inspector Goals Skilled Nursing Goals 1. The pt will produce single words with semantic cues with 80% accuracy. 2. The pt will state basic information re: self with 80% accuracy. 3. The pt will utilize augmentative methods of communication with 80% accuracy for basic needs. 4. The pt will write single words with 80% accuracy. 5. The pt will complete labial and lingual ROM exercises with 80% accuracy. SAMMY BRENNER OT Dec 07, 2022 09:38
--- NOTE | 2022-12-07 13:50 | Therapy Team Discharge Summary ---
Therapy Discharge Summary Discharge Recommendations Date of Discharge Dec 06, 2022 at 13:30 Physical Therapy Pt is a 77 y/o female who suffered a CVA on 11/22/22; Admitted to ARU on 11/30/22. At [facility], pt was Ind with no AD and driving. Upon PT eval, pt was SBA - CGA for all aspects of functional mobility with the FWW. PT focused on B LE strength, endurance, ambulation, functional mobility, balance/safety, and overall Ind. Pt was progressing well with PT, but was discharged from ARU to acute care on 12/06/22 secondary to a decline in medical status; D/C from PT at this time. Roll Left to Right (QC): 4 (SBA ) Sit to Lying (QC): 4 (SBA ) Lying to Sitting/Side of Bed(Q: 4 Sit to Stand (QC): 4 Chair/Zra-yp-Lmteg Xfer(QC): 4 Toilet Transfer (QC): 4 Car Transfer (QC): 4 (SBA ) Does the Patient Walk: Yes Mode of Locomotion: Walk Anticipated Mode of Locomotion: Walk Walk 10 feet (QC): 3 Walk 50 ft with 2 Turns(QC): 3 Walk 150 ft (QC): 3 Walking 10ft on uneven surface: 4 (CGA ) Gait Assistive Device: FWW Does the Pt Use a Wheelchair: No Wheel 50 ft with 2 turns (QC): 9 Wheel 150 ft (QC): 9 Type of Wheelchair: N/A #of Steps: 12 1 Step (curb) (QC): 4 (CGA ) 4 Steps (QC): 4 (CGA ) 12 Steps (QC): 4 (CGA ) Walking Assistive Device: Walker Balance Sitting Static: Good Balance Sitting Dynamic: Good Balance-Standing Static: Fair Picking up an Object (QC): 4 (CGA with manager strategic development ) Occupational Therapy Decreased Activ Tolerance, Decreased Safety Aware, Decreased UE Strength, Impaired Funct Balance, Impaired Self-Care Skills Eating (QC): 3 Oral Hygiene (QC): 3 (Pt requiring max cues for sequencing and follow through with brushing teeth.) Shower/Bathe Self (QC): 2 Upper Body Dressing (QC): 3 (Pt requiring max cues for sequencing donning and doffing shirt. Pt requiring mod A to thread arms through correct holes and pull shirt down over back and abdomen. ) Lower Body Dressing (QC): 2 (Pt requiring max A to don and doff pants and briefs. Required max cues to sequence activity. Attempted to introduce manager strategic development to increase independence, though pt was not receptive to the education. Required assistance to thread legs with both briefs and pants and to pull up pants over bottom completely. ) On/Off Footwear (QC): 3 (Pt requiring help to place sock over toes of R foot, though was independent with L foot and pulling up both socks completely. Pt was not receptive to sock aid training this session. ) Toileting Hygiene (QC): 4 (Pt required supervision to complete toilet hygiene in standing and required max cues to complete hygiene thouroughly. Pt confused plastic flap with wet wipe and required max verbal and tactile cues to redirect to use wet wipe. ) PT Photolithographic Stripper Goals Longterm Goals PT Photolithographic Stripper Goals Time Frame: Dec 21, 2022 Roll Left to Right (QC): 6 (Pt will be Mod I with functional mobility ) Sit to Lying (QC): 6 (Pt will be Mod I with functional mobility ) Lying-Sitting on Side/Bed(QC): 6 (Pt will be Mod I with functional mobility ) Sit to Stand (QC): 6 (Pt will be Mod I with functional mobility ) Chair/Bnd-wb-Fflcn Xfer(QC): 6 (Pt will be Mod I with functional mobility ) Toilet/Commode Transfer (QC): 6 (Pt will be Mod I with functional mobility ) Car Transfer (QC): 6 (Pt will be Mod I with functional mobility ) Does the Patient Walk: Yes Walk 10 feet (QC): 6 (Pt will be Mod I with functional mobility ) Walk 10ft-Uneven Surface(QC): 6 (Pt will be Mod I with functional mobility ) Walk 50ft with 2 Turns (QC): 6 (Pt will be Mod I with functional mobility ) Walk 150 ft (QC): 6 (Pt will be Mod I with functional mobility ) Does the Pt use WC or Scooter?: No Wheel 50 feet with 2 turns (QC: 9 Type: N/A Wheel 150 feet: 9 Type: N/A 1 Step (curb) (QC): 6 (Pt will be Mod I with functional mobility ) 4 Steps (QC): 6 (Pt will be Mod I with functional mobility ) 12 Steps (QC): 6 (Pt will be Mod I with functional mobility ) Picking up an Object (QC): 6 (Pt will be Mod I with functional mobility (with manager strategic development) ) OT Longterm Goals Longterm Goals Eating (QC): 6 (not met) Oral Hygiene (QC): 6 (not met) Toileting Hygiene (QC): 6 (not met) Shower/Bathe Self (QC): 6 (not met) Upper Body Dressing (QC): 6 (not met) Lower Body Dressing (QC): 6 (not met) On/Off Footwear (QC): 6 (not met) Pt will demonstrate 4/5 RUE strength. 1=Demonstrate adherence to instructed precautions during ADL tasks. 2=Patient will verbalize/demonstrate understanding of assistive devices/modifications for ADL. 3=Patient will improve strength/tolerance for activity to enable patient to perform ADL's. Speech Longterm Goals Longterm Goals 1. The pt will produce single words with semantic cues with 80% accuracy. 2. The pt will state basic information re: self with 80% accuracy. 3. The pt will utilize augmentative methods of communication with 80% accuracy for basic needs. 4. The pt will write single words with 80% accuracy. 5. The pt will complete labial and lingual ROM exercises with 80% accuracy. LUC METZGER PT Dec 07, 2022 13:50
--- NOTE | 2022-12-07 13:55 | Therapy Team Discharge Summary ---
Therapy Discharge Summary Discharge Recommendations Date of Discharge Dec 06, 2022 at 13:30 Physical Therapy Roll Left to Right (QC): 4 (SBA ) Sit to Lying (QC): 4 (SBA ) Lying to Sitting/Side of Bed(Q: 4 Sit to Stand (QC): 4 Chair/Oge-om-Vtofw Xfer(QC): 4 Toilet Transfer (QC): 4 Car Transfer (QC): 4 (SBA ) Does the Patient Walk: Yes Mode of Locomotion: Walk Anticipated Mode of Locomotion: Walk Walk 10 feet (QC): 3 Walk 50 ft with 2 Turns(QC): 3 Walk 150 ft (QC): 3 Walking 10ft on uneven surface: 4 (CGA ) Gait Assistive Device: FWW Does the Pt Use a Wheelchair: No Wheel 50 ft with 2 turns (QC): 9 Wheel 150 ft (QC): 9 Type of Wheelchair: N/A #of Steps: 12 1 Step (curb) (QC): 4 (CGA ) 4 Steps (QC): 4 (CGA ) 12 Steps (QC): 4 (CGA ) Walking Assistive Device: Walker Balance Sitting Static: Good Balance Sitting Dynamic: Good Balance-Standing Static: Fair Picking up an Object (QC): 4 (CGA with big data hadoop developer ) Occupational Therapy Decreased Activ Tolerance, Decreased Safety Aware, Decreased UE Strength, Impaired Funct Balance, Impaired Self-Care Skills Eating (QC): 3 Oral Hygiene (QC): 3 (Pt requiring max cues for sequencing and follow through with brushing teeth.) Shower/Bathe Self (QC): 2 Upper Body Dressing (QC): 3 (Pt requiring max cues for sequencing donning and doffing shirt. Pt requiring mod A to thread arms through correct holes and pull shirt down over back and abdomen. ) Lower Body Dressing (QC): 2 (Pt requiring max A to don and doff pants and briefs. Required max cues to sequence activity. Attempted to introduce big data hadoop developer to increase independence, though pt was not receptive to the education. Required assistance to thread legs with both briefs and pants and to pull up pants over bottom completely. ) On/Off Footwear (QC): 3 (Pt requiring help to place sock over toes of R foot, though was independent with L foot and pulling up both socks completely. Pt was not receptive to sock aid training this session. ) Toileting Hygiene (QC): 4 (Pt required supervision to complete toilet hygiene in standing and required max cues to complete hygiene thouroughly. Pt confused plastic flap with wet wipe and required max verbal and tactile cues to redirect to use wet wipe. ) Speech-Language Pathology Pt completed speech therapy with goals of increased communication and PO intake of least restrictive diet. The pt had fair gains on swallowing goals, tolerating small amounts of minced and bite-sized solids with thin liquids. Expressive communication declined during admission, from ability to imitate single words and spontaneously label functional objects to miminal expressive verbalizations. PT Halfway Goals Rope Twisting Machine Operator Goals PT Rope Twisting Machine Operator Goals Time Frame: Dec 21, 2022 Roll Left to Right (QC): 6 (Pt will be Mod I with functional mobility ) Sit to Lying (QC): 6 (Pt will be Mod I with functional mobility ) Lying-Sitting on Side/Bed(QC): 6 (Pt will be Mod I with functional mobility ) Sit to Stand (QC): 6 (Pt will be Mod I with functional mobility ) Chair/Noa-kv-Bnbyo Xfer(QC): 6 (Pt will be Mod I with functional mobility ) Toilet/Commode Transfer (QC): 6 (Pt will be Mod I with functional mobility ) Car Transfer (QC): 6 (Pt will be Mod I with functional mobility ) Does the Patient Walk: Yes Walk 10 feet (QC): 6 (Pt will be Mod I with functional mobility ) Walk 10ft-Uneven Surface(QC): 6 (Pt will be Mod I with functional mobility ) Walk 50ft with 2 Turns (QC): 6 (Pt will be Mod I with functional mobility ) Walk 150 ft (QC): 6 (Pt will be Mod I with functional mobility ) Does the Pt use WC or Scooter?: No Wheel 50 feet with 2 turns (QC: 9 Type: N/A Wheel 150 feet: 9 Type: N/A 1 Step (curb) (QC): 6 (Pt will be Mod I with functional mobility ) 4 Steps (QC): 6 (Pt will be Mod I with functional mobility ) 12 Steps (QC): 6 (Pt will be Mod I with functional mobility ) Picking up an Object (QC): 6 (Pt will be Mod I with functional mobility (with big data hadoop developer) ) OT Halfway Goals Rope Twisting Machine Operator Goals Eating (QC): 6 (not met) Oral Hygiene (QC): 6 (not met) Toileting Hygiene (QC): 6 (not met) Shower/Bathe Self (QC): 6 (not met) Upper Body Dressing (QC): 6 (not met) Lower Body Dressing (QC): 6 (not met) On/Off Footwear (QC): 6 (not met) Pt will demonstrate 4/5 RUE strength. 1=Demonstrate adherence to instructed precautions during ADL tasks. 2=Patient will verbalize/demonstrate understanding of assistive de vices/modifications for ADL. 3=Patient will improve strength/tolerance for activity to enable patient to perform ADL's. Speech Halfway Goals Halfway Goals 1. The pt will produce single words with semantic cues with 80% accuracy. 2. The pt will state basic information re: self with 80% accuracy. 3. The pt will utilize augmentative methods of communication with 80% accuracy for basic needs. 4. The pt will write single words with 80% accuracy. 5. The pt will complete labial and lingual ROM exercises with 80% accuracy. LORI PINEDO Dec 07, 2022 13:55
[2022-12-08] MEDS ORDERED: CLONIDINE PATCH REMOVAL TP SCH (12:29)
== END 2022-12-06 13:30 | disposition short-term general hospital (02) | DRG 56 ==
PROVIDERS: ADMIT Internal Medicine; ATTEND Internal Medicine
DX: I69.351 Hemiplegia and hemiparesis following cerebral infarction affecting right dominant side (principal); I21.4 Non-ST elevation (NSTEMI) myocardial infarction; N39.0 Urinary tract infection, site not specified; I69.320 Aphasia following cerebral infarction; I69.391 Dysphagia following cerebral infarction; R13.12 Dysphagia, oropharyngeal phase; I10 Essential (primary) hypertension; Z66 Do not resuscitate; Z51.5 Encounter for palliative care; T17.908A Unspecified foreign body in respiratory tract, part unspecified causing other injury, initial encounter; J44.9 Chronic obstructive pulmonary disease, unspecified; I25.119 Atherosclerotic heart disease of native coronary artery with unspecified angina pectoris; E78.00 Pure hypercholesterolemia, unspecified; K21.9 Gastro-esophageal reflux disease without esophagitis; E83.52 Hypercalcemia; E83.42 Hypomagnesemia; I73.9 Peripheral vascular disease, unspecified; Z93.1 Gastrostomy status; Z95.5 Presence of coronary angioplasty implant and graft; Z95.1 Presence of aortocoronary bypass graft; Z99.81 Dependence on supplemental oxygen; Z87.891 Personal history of nicotine dependence; Z88.2 Allergy status to sulfonamides; Z91.09 Other allergy status, other than to drugs and biological substances; Z79.82 Long term (current) use of aspirin; Z79.899 Other long term (current) drug therapy
CPT/HCPCS: 36410; 36415; 70450; 71045; 76937; 80053; 81000; 82607; 83540; 85025; 87088; 87186; 94640; 94760

== ENCOUNTER 2022-12-06 12:30 | Inpatient (IN) | payer MEDICARE, OTHER ==
[~2022-12-06 12:30] MED LIST changes: +ATOR80TA76 NG; +CARV25TA NG; +CHOL10004 PO; +CLOP75TA28 PO; +DICY-11 PO; +DOCU50LI11 PO; +FAMO40SU5 FEEDING; +FERR-74 PO; +LEVO-55 PO; +NITR0.4T39 SL
--- OUTSIDE RECORDS SUMMARY | 2022-12-06 12:33 | XMS REPORT | Clinical Summary ---
Author Author [facility] Organization [facility] Address Unknown Phone Unavailable Care Team Providers Care Pathological Technician Name Role Phone Whitney Burnham RN PCP Unavailable Source Comments Some departments are not documenting in the electronic medical record. If you do not see the information that you expected, contact Release of Information in the Health Information Management department at [phone] for further assistance in locating additional records.[facility] Allergies Active Allergy Reactions Criticality Noted Date [...] tablets by mouth daily. 0 Active cloNIDine ([id number] ) 0.2 mg/day patch Apply one patch [...] high blood pressure 0 12/01/19 Discontinued cloNIDine ([id number]-FHB-1 ) 0.3 mg/day patch Apply one patch [...] Care Team Description 11/30/2022 1:17 PM CDT - 11/30/2022 11:59 PM CDT Hospital Encounter Cardiovascular Medicine: [address], [address] [place] [address] Anita Layton, Discharge Disposition: Home or Self Care 11/30/2022 Travel 11/29/2022 5:30 AM CDT - 11/29/2022 11:59 PM CDT Hospital Encounter Vascular Access Team: [address], [address] [place] [address] Topher Moy MD Discharge Disposition: Home or Self Care 11/28/2022 5:45 AM CDT - 11/28/2022 11:59 PM CDT Hospital Encounter Vascular Access Team: [address], [address] [place] [address] Topher Moy MD Discharge Disposition: Home or Self Care 11/27/2022 5:20 PM CDT Anesthesia Event Interventional Radiology: [address], [address] [place] [address] Sathish Farris MD McCartney, Michael L, MD 11/25/2022 12:46 PM CDT Anesthesia Event Cardiovascular Medicine: [address], [address] [place] [address] Shyla Koehler DO 11/25/2022 6:43 AM CDT - 11/25/2022 11:59 PM CDT Hospital Encounter Cardiovascular Medicine: [facility] [place] [address] [facility], [address] [place] [address] Marcus Villarreal, Naheed Garner RN Discharge Disposition: Home or Self Care 11/24/2022 Documentation Cardiovascular Medicine: [facility] [place] [address] [facility], [address] [place] [address] Maria C Man, JONELLE CLARISSE Pre-Procedure Instuctions 11/23/2022 10:00 PM CDT Anesthesia Event Anesthesiology: [address] [address], [address] [place] [address] Jared Harrington MD 11/23/2022 1:04 AM CDT - 11/23/2022 11:59 PM CDT Hospital Encounter Vascular Access Team: [address] [address], [address] [place] [address] Dontrell Bender, REFINERY OPERATOR ASSISTANT-ETHANOL QUALITY LEADER Discharge Disposition: Home or Self Care 11/22/2022 10:44 PM CDT Anesthesia Event Interventional Radiology: [id number] [facility] [address] [place] [address] Jared Harrington MD Hoelscher, Heather M, CRNA 11/22/2022 10:42 PM CDT - 11/30/2022 11:38 AM CDT Hospital Encounter Patient Care Unit CA6: [facility] [address] [facility] [address] [place] [address] Yanni Morrison MD Carpenter, Kyle G, DO Husmann, Kathrin R, MD Rosterman, Lee R, DO Wang, Yunxia, MD Barkley, Tiffany T, DO Acute ischemic stroke (HCC) Discharge Disposition: Rehab Facility (Not [facility]) 11/22/2022 12:15 AM CDT - 11/22/2022 10:41 PM CDT Hospital Encounter Imaging: [address], [address] [place] [address] Discharge Disposition: Home or Self Care 11/22/2022 12:10 AM CDT - 11/22/2022 12:14 AM CDT Hospital Encounter Imaging: [address] [address], [address] [place] [address] Discharge Disposition: Home or Self Care 11/22/2022 12:05 AM CDT - 11/22/2022 12:09 AM CDT Hospital Encounter Imaging: [address], [address] [place] [address] Discharge Disposition: Home or Self Care 11/22/2022 - 11/22/2022 12:04 AM CDT Hospital Encounter Imaging: [address] [address], [address] [place] [address] Discharge Disposition: Home or Self Care from Last 3 Months Surgical History Surgery Date Site/Laterality Comments CORONARY STENT PLACEMENT 11/18/2022 HX CORONARY ARTERY BYPASS GRAFT 03/01/2011 - 02/29/2012 Medical History Medical History Date Comments HTN (hypertension) PAD (peripheral artery disease) ([facility]) CAD (coronary artery disease) NSTEMI (non-ST elevated myocardial infarction) ( [facility]) COPD (chronic obstructive pulmonary disease) (HC C) [...] Type Associated Problems Recent Progress Patient-Stated? Author [facility] On track(11/27/19 23 11:13 AM CDT) No Mando Johns, leg breaker Procedure Name Priority Date/Time Associated Diagnosis Comments CT ABD/PELV WO CONTRAST DILEEP 11/30/2022 10:20 AM CDT ECG 12-LEAD STAT 11/30/2022 8:30 AM CDT HC HIGH SENSITIVITY TROPONIN I 0 HOUR Add on 11/30/2022 7:10 AM CDT HC PHOSPHOROUS, SERUM Routine 11/30/2022 7:10 AM CDT HC MAGNESIUM Routine 11/30/2022 7:10 AM CDT HC COMPREHENSIVE METABOLIC PANEL Routine 11/30/2022 7:10 AM CDT HC CBC,AUTOMATED Routine 11/30/2022 7:1 0 AM CDT ABDOMEN AP/LAT TUBE CHECK W/ [...] Moy MD ECG ORDERABLES Performing Organization Address City/[facility]/ZIP Co de Phone Number GE MUSE * (ABNORMAL) HIGH SENSITIVITY TROPONIN I 0 HOUR (11/30/2022 7:10 AM CDT) Only the most recent of2 resultswithin the time period is included. hs Troponin I 0 Hour 146(H) <12 ng/L 11/30/2022 8:56 AM CDT [facility] 11/30/2022 7:1 0 AM CDT 11/30/2022 7:11 AM CDT Garrison Tee DO LABORATORY ORDERABLE S [facility] [address] [place] [address], [place] * (ABNORMAL) CBC (11/30/2022 7:10 AM CDT) Only the most recent of3 resultswithin the time period is included. White Blood Cells 7.8 4.5 - 11.0 K/UL 11/30/2022 7:31 AM CDT [facility] RBC 2.76(L) 4.0 - 5.0 M/UL 11/30/2022 7:31 AM CDT [facility] DEPT PATH AND LAB MEDICINE Hemoglobin 8.0(L) 12.0 - 15.0 GM/DL 11/30/2022 7:31 AM CDT [facility] Hematocrit 24.9(L) 36 - 45 % 11/30/2022 7:31 AM CDT [facility] MCV 90.1 80 - 100 FL 11/30/2022 7:31 AM CDT [facility] DEPT PATH AND LAB MEDICINE MCH 28.9 26 - 34 PG 11/30/2022 7:31 AM CDT [facility] DEPT PATH AND LAB MEDICINE MCHC 32.1 32.0 - 36.0 G/DL 11/30/2022 7:31 AM CDT [facility] DEPT PATH AND LAB MEDICINE RDW 13.4 11 - 15 % 11/30/2022 7:31 AM CDT [facility] DEPT PATH AND LAB MEDICINE Platelet Count 214 150 - 400 K/UL 11/30/2022 7:31 AM CDT [facility] DEPT PATH AND LAB MEDICINE MPV 10.1 7 - 11 FL 11/30/2022 7:31 AM CDT [facility] DEPT PATH AND LAB MEDICINE BLOOD / Unknown 11/30/2022 7:10 AM CDT 11/30/2022 7:11 AM CDT Topher Moy MD LABORATORY ORDERABLE S [facility] DEPT PATH AND LAB MEDICINE [address] [place] [address], * PHOSPHORUS (11/30/2022 7:10 AM CDT) Only the most recent of9 resultswithin the time period is included. Phosphorus 2.9 2.0 - 4.5 MG/DL 11/30/2022 7:58 AM CDT [facility] BLOOD / Unknown 11/30/2022 7:10 AM CDT 11/30/2022 7:11 AM CDT Topher Moy MD LABORATORY ORDERABLE S Performing Organization Address City/[facility]/ZIP Co de Phone Number [facility] [address] [place] [address], * MAGNESIUM (11/30/2022 7:10 AM CDT) Only the most recent of9 resultswithin the time period is included. Magnesium 1.7 1.6 - 2.6 mg/dL 11/30/2022 7:58 AM CDT [facility] DEPT PATH AND LAB MEDICINE BLOOD / Unknown 11/30/2022 7:10 AM CDT 11/30/2022 7:11 AM CDT Topher Moy MD LABORATORY ORDERABLE S Performing Organization Address [facility] Co de Phone Number [facility] [address] [place] [address], * (ABNORMAL) COMPREHENSIVE METABOLIC PANEL (11/30/2022 7:10 AM CDT) Only the most recent of4 resultswithin the time period is included. Sodium 135(L) 137 - 147 MMOL/L 11/30/2022 7:58 AM CDT [facility] Potassium 4.1 3.5 - 5.1 MMOL/L 11/30/2022 7:58 AM CDT [facility] Chloride 94(L) 98 - 110 MMOL/L 11/30/2022 7:58 AM CDT [facility] Glucose 105(H) 70 - 100 MG/DL 11/30/2022 7:58 AM CDT [facility] DEPT PATH AND LAB MEDICINE Blood Urea Nitrogen 24 7 - 25 MG/DL 11/30/2022 7:58 AM CDT [facility] Creatinine 0.92 0.4 - 1.00 MG/DL 11/30/2022 7:58 AM CDT [facility] DEPT PATH AND LAB MEDICINE Calcium 10.1 8.5 - 10.6 MG/DL 11/30/2022 7:58 AM CDT [facility] DEPT PATH AND LAB MEDICINE Total Protein 6.0 6.0 - 8.0 G/DL 11/30/2022 7:58 AM CDT [facility] DEPT PATH AND LAB MEDICINE Total Bilirubin 0.3 0.3 - 1.2 MG/DL 11/30/2022 7:58 AM CDT [facility] DEPT PATH AND LAB MEDICINE Albumin 3.3(L) 3.5 - 5.0 G/DL 11/30/2022 7:58 AM CDT [facility] DEPT PATH AND LAB MEDICINE Alk Phosphatase 67 25 - 110 U/L 11/30/2022 7:58 AM CDT [facility] DEPT PATH AND LAB MEDICINE AST (SGOT) 17 7 - 40 U/L 11/30/2022 7:58 AM CDT [facility] DEPT PATH AND LAB MEDICINE CO2 34(H) 21 - 30 MMOL/L 11/30/2022 7:58 AM CDT [facility] DEPT PATH AND LAB MEDICINE ALT (SGPT) 12 7 - 56 U/L 11/30/2022 7:58 AM CDT [facility] DEPT PATH AND LAB MEDICINE Anion Gap 7 3 - 12 11/30/2022 7:58 AM CDT [facility] DEPT PATH AND LAB MEDICINE eGFR >60 >60 mL/min 11/30/2022 7:58 AM CDT [facility] DEPT PATH AND LAB MEDICINE Comment:eGFR calculated eliz matos the CKD-EPIcr_R equation BLOOD / Unknown 11/30/2022 7:10 AM CDT 11/30/2022 7:11 AM CDT Topher Moy MD LABORATORY ORDERABLE S [facility] [address] [place] [address], [place] * ABDOMEN AP/LAT TUBE CHECK W/ [...] MONTIEL on 11/29/2022 11:22 AM. Rosita Marcos REFINERY OPERATOR ASSISTANT-ETHANOL QUALITY LEADER DIAGNOSTIC AMADOR GING ORDERABLES * ABDOMEN 1 [...] 160 MCG/DL 11/28/2022 4:46 PM CDT [facility] DEPT PATH AND LAB MEDICINE Iron Binding-TIBC 294 270 - 380 MCG/DL 11/28/2022 4:46 PM CDT [facility] DEPT PATH AND LAB MEDICINE % Saturation 9(L) 28 - 42 % 11/28/2022 4:46 PM CDT [facility] DEPT PATH AND LAB MEDICINE Ferritin 123 10 - 200 NG/ML 11/28/2022 4:46 PM CDT [facility] DEPT PATH AND LAB MEDICINE BLOOD / Unknown 11/28/2022 3:48 PM CDT 11/28/2022 3:57 PM CDT Topher Moy MD LABORATORY ORDERABLE S [facility] DEPT PATH AND LAB MEDICINE [address] [place] [address], * CTA NECK WO/W CONT (11/27/2022 1:40 [...] Yanni Morrison MD LABORATORY ORDERABLE S [facility] DEPT PATH AND LAB MEDICINE [address] [place] [address], * (ABNORMAL) BASIC METABOLIC PANEL (11/27/2022 6:08 AM CDT) Only the most recent of5 resultswithin the time period is included. Sodium 137 137 - 147 MMOL/L 11/27/2022 7:15 AM CDT [facility] DEPT PATH AND LAB MEDICINE Potassium 4.7 3.5 - 5.1 MMOL/L 11/27/2022 7:15 AM CDT [facility] DEPT PATH AND LAB MEDICINE Chloride 101 98 - 110 MMOL/L 11/27/2022 7:15 AM CDT [facility] DEPT PATH AND LAB MEDICINE CO2 30 21 - 30 MMOL/L 11/27/2022 7:15 AM CDT [facility] DEPT PATH AND LAB MEDICINE Anion Gap 6 3 - 12 11/27/2022 7:15 AM CDT [facility] DEPT PATH AND LAB MEDICINE Glucose 103(H) 70 - 100 MG/DL 11/27/2022 7:15 AM CDT [facility] DEPT PATH AND LAB MEDICINE Blood Urea Nitrogen 33(H) 7 - 25 MG/DL 11/27/2022 7:15 AM CDT [facility] DEPT PATH AND LAB MEDICINE Creatinine 1.24(H) 0.4 - 1.00 MG/DL 11/27/2022 7:15 AM CDT [facility] DEPT PATH AND LAB MEDICINE Calcium 9.8 8.5 - 10.6 MG/DL 11/27/2022 7:15 AM CDT [facility] DEPT PATH AND LAB MEDICINE eGFR 45(L) >60 mL/min 11/27/2022 7:15 AM CDT [facility] DEPT PATH AND LAB MEDICINE Comment:eGFR calculated eliz matos the CKD-EPIcr_R equation BLOOD / Unknown 11/27/2022 6:08 AM CDT 11/27/2022 6:09 AM CDT Yanni Morrison MD LABORATORY ORDERABLE S [facility] [address] [place] [address], * SWALLOW MOTION SERIES (11/26/2022 9:21 AM [...] thorax and abdomen are included in the yyqzm-cr-[id number]. There has been interval advancement of the [...] thorax and abdomen are included in the asnsz-cl-mxgy. There hasbeen interval advancement of the nasoenteric [...] m2 OTHER OUTSIDE LAB CV ECHO PV CERTIFIED SKI PATROLLER JONELLE Farfan. Anesthesia Team OTHER OUTSIDE LAB [...] (62) on 11/23/2022 8:07:57 PM Dontrell Bender APRN-ETHANOL QUALITY LEADER ECG ORDERAB LES GE MUSE * (ABNORMAL) HIGH SENSITIVITY TROPONIN I 4 HR (11/23/2022 9:05 AM CDT) [facility] hs Troponin I 4 Hour 649(H) <12 ng/L 11/23/2022 10:22 AM CDT [facility] BLOOD / Unknown 11/23/2022 9:05 AM CDT 11/23/2022 9:13 AM CDT Dontrell Bender APRN-CHRIS LABORATORY ORDERABLES [facility] [address] [place] [address], [place] * 2D + DOPPLER ECHO W/ CONTRAST (11/23/2022 8:06 AM CDT) [facility] Left Ventricle Diastolic Volume 159.00 46 - [...] was suboptimal-there is no evidence of intracardiac rfxpy-gs-wrha shunting Left Ventricle The left ventricle is [...] 790(H) <12 ng/L 11/23/2022 6:09 AM CDT [facility] DEPT PATH AND LAB MEDICINE 11/23/2022 5:0 8 AM CDT 11/23/2022 5:25 AM CDT Silvana Faust DO LABORATORY ORDERABLE S [facility] [address] [place] [address], [place] * MRI HEAD WO CONTRAST (11/23/2022 [...] - 2 /HPF 11/23/2022 4:34 AM CDT [facility] DEPT PATH AND LAB MEDICINE RBCs,UA 0-2 0 - 3 /HPF 11/23/2022 4:34 AM CDT [facility] DEPT PATH AND LAB MEDICINE Comment,UA Criteria for reflex to culture are WBC>10, Positive Nitrite, and/or >=+1 leukocytes. If quantity is not sufficient, an addendum will follow. 11/23/2022 4:34 AM CDT [facility] DEPT PATH AND LAB MEDICINE UA Reflex Specimen Type and Source URINE CATHETER, IN AND OUT 11/23/2022 1:19 AM CDT [facility] DEPT PATH AND LAB MEDICINE MucousUA TRACE 11/23/2022 4:34 AM CDT [facility] DEPT PATH AND LAB MEDICINE Urine (Catheter, In and Out) 11/23/2022 2:07 AM CDT 11/23/2022 2:25 AM CDT Dontrell Bender REFINERY OPERATOR ASSISTANT-ETHANOL QUALITY LEADER URINE ORDER OTILIA [facility] [address] [place] [address], [place] * (ABNORMAL) URINALYSIS DIPSTICK REFLEX TO CULTURE (11/23/2022 2:07 AM CDT) Color,UA STRAW 11/23/2022 4:34 AM CDT [facility] DEPT PATH AND LAB MEDICINE Turbidity,UA CLEAR CLEAR-TIFFANY R 11/23/2022 4:34 AM CDT [facility] DEPT PATH AND LAB MEDICINE Specific [place]-Urine >1.050(H) 1.005 - 1.030 11/23/2022 4:34 AM CDT [facility] DEPT PATH AND LAB MEDICINE Comment:NOTE NEW REFERENCE R TANISHA pH,UA 6.0 5.0 - 8.0 11/23/2022 4:34 AM CDT [facility] DEPT PATH AND LAB MEDICINE Protein,UA 1+(A) NEG-NEG 11/23/2022 4:34 AM CDT [facility] DEPT PATH AND LAB MEDICINE Glucose,UA NEG NEG-NEG 11/23/2022 4:34 AM CDT [facility] DEPT PATH AND LAB MEDICINE Ketones,UA TRACE(A) NEG-NEG 11/23/2022 4:34 AM CDT [facility] DEPT PATH AND LAB MEDICINE Bilirubin,UA NEG NEG-NEG 11/23/2022 4:34 AM CDT [facility] DEPT PATH AND LAB MEDICINE Blood,UA NEG NEG-NEG 11/23/2022 4:34 AM CDT [facility] DEPT PATH AND LAB MEDICINE Urobilinogen,U A NORMAL NORM-TANYA L 11/23/2022 4:34 AM CDT [facility] DEPT PATH AND LAB MEDICINE Nitrite,UA NEG NEG-NEG 11/23/2022 4:34 AM CDT [facility] DEPT PATH AND LAB MEDICINE Leukocytes,UA NEG NEG-NEG 11/23/2022 4:34 AM CDT [facility] DEPT PATH AND LAB MEDICINE Urine Ascorbic Acid, UA NEG NEG-NEG 11/23/2022 4:34 AM CDT [facility] DEPT PATH AND LAB MEDICINE URINE SPECIMEN / Unknown 11/23/2022 2:07 AM CDT 11/23/2022 2:25 AM CDT Dontrell Bender REFINERY OPERATOR ASSISTANT-ETHANOL QUALITY LEADER URINE ORDER OTILIA Performing Organization Address [facility] Co de Phone Number [facility] [address] * HEMOGLOBIN A1C (11/23/2022 1:14 AM CDT) Hemoglobin A1C 5.4 4.0 - 5.7 % 11/23/2022 10:02 AM CDT [facility] DEPT PATH AND LAB MEDICINE Comment: The ADA recommends that most patients with type 1 and type 2 diabetes maintain an A1c level <7%. BLOOD / Unknown 11/23/2022 1:14 AM CDT 11/23/2022 1:43 AM CDT Yanni Morrison MD LABORATORY ORDERABLE S Performing Organization Address City/[facility]/ZIP Co de Phone Number [facility] [address] * (ABNORMAL) IONIZED CALCIUM (11/23/2022 1:14 AM CDT) Ionized Calcium 1.35(H) 1.0 - 1.3 MMOL/L 11/23/2022 2:03 AM CDT [facility] DEPT PATH AND LAB MEDICINE BLOOD / Unknown 11/23/2022 1:14 AM CDT 11/23/2022 2:00 AM CDT Dontrell Bender REFINERY OPERATOR ASSISTANT-ETHANOL QUALITY LEADER LABORATORY ORDERABLES Performing Organization Address City/[facility]/ZIP Co de Phone Number [facility] [address] [place] [address], [place] * (ABNORMAL) LIPID PROFILE (11/23/2022 1:14 AM CDT) [facility] Cholesterol 145 <200 MG/DL 11/23/2022 2:18 AM CDT [facility] DEPT PATH AND LAB MEDICINE Triglycerides 111 <150 MG/DL 11/23/2022 2:18 AM CDT [facility] DEPT PATH AND LAB MEDICINE HDL 38(L) >40 MG/DL 11/23/2022 2:18 AM CDT [facility] DEPT PATH AND LAB MEDICINE LDL 89 <100 mg/dL 11/23/2022 2:18 AM CDT [facility] DEPT PATH AND LAB MEDICINE VLDL 22 MG/DL 11/23/2022 2:18 AM CDT [facility] DEPT PATH AND LAB MEDICINE Non HDL Cholesterol 107 MG/DL 11/23/2022 2:18 AM CDT [facility] DEPT PATH AND LAB MEDICINE Comment: Calculated non-HDL Cholesterol (non-HDL-C) indirectly measures LDL-C, Lp(a), IDL-C, and VLDL-C. It is a surrogate marker for Apoprotein B. Goal should be less than 130 mg/dL. BLOOD / Unknown 11/23/2022 1:14 AM CDT 11/23/2022 1:43 AM CDT Yanni Morrison MD LABORATORY ORDERABLE S [facility] [address] [place] [address], [place] * IR CEREBRAL ARTERIOGRAM DIAGNOSTIC WITH [...] MATERIALS USED: Walrus balloon guide sheath, 6 Cymraes Perez select guide catheter PROCEDURE: The risks, [...] saved and stored in PACS. A 6 Cymraes slender sheath was then placed over the wire and attached to saline drip. An intra-arterial injection of 2.5 mg of verapamil and 200 mcg of nitroglycerin was then given through the sheath. A sheath angiogram was performed demonstrating no gross vascular anatomic abnormalities or variants. The 6 Cymraes sheath was then exchanged over a Thornton [...] MATERIALS USED: Walrus balloon guide sheath, 6 Cymraes Perez select guidecatheter PROCEDURE: The risks, benefits, [...] saved and stored in PACS. A 6 Cymraes slender sheathwas then placed over the wire and attached to saline drip. Anintra-arterial injection of 2.5 mg of verapamil and 200 mcg ofnitroglycerin was then given through the sheath. A sheath angiogram wasperformed demonstrating no gross vascular anatomic abnormalities orvariants. The 6 Cymraes sheath was then exchanged over a Thornton [...] - 100 MG/DL 11/22/2022 11:10 PM CDT SHERRI Sal 11/22/2022 11:0 8 PM CDT 11/22/2022 11:10 PM CDT Yanni Morrison MD OTHER LABORATORY SHERRI MAXWELL [address] [place] [address] * CT HEAD EXTERNAL IMAGING (11/22/2022 12:15 [...] Family? No, more discussion needed Care Teams Pathological Technician Relationship Specialty Start Date End Date Whitney Burnham, JONELLE PCP - General 11/23/22
--- OUTSIDE RECORDS SUMMARY | 2022-12-06 12:34 | XMS REPORT | Encounter Summary ---
Author Author [facility] Organization [facility] Address Unknown Phone Unavailable Care Team Providers Care Bookkeeping Clerks Supervisor Name Role Phone Whitney Burnham RN PCP Unavailable Encounter Details Date Type Department Care Team Description 11/23/2022 10:00 PM CDT Anesthesia Event Anesthesiology: [facility] [address] [place] [phone] Jared Harrington MD [address] [facility] [facility] [place], [place] [id number] Anesthesia Record Procedure Summary Procedure Name Responsible Anesthesiologist Anesthesia Start Time Anesthesia Stop Time ANESTHESIA PRE-EVAL Events No events on file. Meds * Agents No agents on file. * Blood No blood administrations on file. Lines, Drains, and Airways Type Details Placement Removal Gastrostomy Tube 11/27/22; 1745; Abdo men, Left Upper Medial; 18FR; Yes 11/27/22 1745 by Ayesha Gandara RN documented in this encounter Social History [...] (Home O2 4L), severe Cardiovascular Hypertension, Past [place] (11/18/22): non-STEMI, acute (< 6 months) Coronary [...] documented as of this encounter Care Teams Bookkeeping Clerks Supervisor Relationship Specialty Start Date End Date Whitney Burnham, JONELLE PCP - General 11/23/22 documented as of this encounter
--- OUTSIDE RECORDS SUMMARY | 2022-12-06 12:34 | XMS REPORT | Encounter Summary ---
Author Author [facility] Organization [facility] Address Unknown Phone Unavailable Care Team Providers Care Stock Cutter Name Role Phone Whitney Burnham RN PCP Unavailable Encounter Details Date Type Department Care Team Description 11/22/2022 - 11/22/2022 12:04 AM CDT Hospital Encounter Imaging: [facility] [place] [address], [address] [place] [address] Discharge Disposition: Home or Self [...] five tablets by mouth daily. 0 cloNIDine ([id number]) 0.2 mg/day patch Apply one patch to [...] Code Departure Means Destination Home or Self Mcfp documented in this encounter Plan of Treatment [...] documented as of this encounter Care Teams Stock Cutter Relationship Specialty Start Date End Date Whitney Burnham, JONELLE PCP - General 11/22/22 11/22/22 documented as of this encounter
--- OUTSIDE RECORDS SUMMARY | 2022-12-06 12:34 | XMS REPORT | Encounter Summary ---
Author Author [facility] Organization [facility] Address Unknown Phone Unavailable Care Team Providers Care Long Wall Mining Machine Helper Name Role Phone Whitney Burnham RN PCP Unavailable Encounter Details Date Type Department Care Team Description 11/22/2022 12:15 AM CDT - 11/22/2022 10:41 PM CDT Hospital Encounter Imaging: [facility] [address], [address] [place] [address] Discharge Disposition: Home or Self [...] five tablets by mouth daily. 0 cloNIDine (ROUZVDWQ-ZBQ-0) 0.2 mg/day patch Apply one patch to [...] documented as of this encounter Care Teams Long Wall Mining Machine Helper Relationship Specialty Start Date End Date Whitney Burnham, JONELLE PCP - General 11/22/22 11/22/22 documented as of this encounter
--- OUTSIDE RECORDS SUMMARY | 2022-12-06 12:34 | XMS REPORT | Encounter Summary ---
Author Author [facility] Organization [facility] Address Unknown Phone Unavailable Care Team Providers Care Coating Mixer Name Role Phone Whitney Burnham RN PCP Unavailable Reason for Visit * Auth/Cert (Routine) Specialty Diagnoses / Procedures Referred By Grace wilkerson Referred To Contact Diagnoses Acute ischemic stroke (HCC) stroke Referral ID Status Reason Start Date Expiration Date Visits Re quested Visits Authorized [id number] 1 1 Encounter Details Date Type Department Care Team Description 11/22/2022 10:44 PM CDT Anesthesia Event [facility] [address] [facility] [address] 2 [place] [address] Jared Harrington MD [address] [address] Damaris Subramanian CRNA [address] [address] Anesthesia Record Procedure Summary Procedure Name Responsible Anesthesiologist Anesthesia Start Time Anesthesia Stop Time IR CEREBRAL ARTERIOGRAM DIAGNOSTIC WITH INTERVENTION Jared Harrington MD 11/22/22224311/22/22 2350 Events Date Time Event Comment 11/22/2022 224 Anes Start 2243 An Start Data 2243 In Room 224 An Induction The patient was reevaluated immediately before moderate or deep sedation use and before anesthesia induction. 2248 An Intubation 2250 2250 Anesthesia Ready 2308 Proc Start 2312 Quick Note Nitro given per IR team. 2322 Quick Note Unable to keep BPs in goal range since nitro admin. See intraop for meds given. 2339 An Extubation 2344 an stop data 2350 An Stop I completed my SBAR handoff to the receiving nurse. Meds * Agents Name O2 N2O Inspired Sevoflurane Inspired Sevoflurane * Blood No blood administrations on file. Lines, Drains, and Airways Type Details Placement Removal Arterial Sheath 11/22/22; Radial, Right; 6 FR; (monitored by physician throughout the procedure); Correct Patient, Correct Procedure, Correct Patient Position, Correct Equipment / Implants Available, Marking Waived, Not Side Specific; 11/22/22; 2333; Y 11/22/22 0000 by Sandra Brooks RN 11/22/22 2333 by Sandra Brooks RN ETT 11/22/22; 2247; Mask ventilation not attempted (0); Direct laryngoscopy, Rapid sequence, Stylet; Cuffed, Single-Lumen; ETT Size: 6.5mm; Mac; Blade Size: 3; Cricoid Pressure: No; Oral; 1-Full view of the glottis; 1 insertion attempt; Auscultation, ETCO2 Detector; Vol of Air in Cuff: 8 mL; Taped at Gums: 21 centimeters; Atraumatic. Mucosa unchanged.; 11/22/22; 2339 11/22/22 2247 by Lydia Johnston CRNA 11/22/22 2339 by Lydia Johnston CRNA ZZZPuncture Wound (Sheath) 11/22/22; 2313; Right; Radial; 11/25/22; 1819 11/22/22 2313 by Sandra Brooks RN 11/25/22 181 by Naheed Mesa RN Peripheral IV 11/22/22; 2355; PreHospital EMS/Emergent; R; Posterior; Hand; 20 G; Symptomatic (phlebitis, pain, leaking, swelling, infiltration); 11/27/22; 1658 11/22/22 235 by Meron Amador RN 11/27/22 165 by Yue Salinas, JONELLE Indwelling Urinary Catheter 11/22/22; 2355; Present on Admission; 11/23/22; 0700 11/22/22 2355 by Meron Amador RN 11/23/22 0700 by Meron Amador RN documented in this encounter Social History [...] OR Notes * Anesthesia Postprocedure Evaluation - Jared Harrington MD - 11/22/2022 11:51 PM CDT Post-Anesthesia Evaluation Name: Anayeli Mobley : 1945 Age: 77 y.o. Sex: female Procedure Information Anesthesia Start Date/Time: 11/22/222243 Scheduled providers: Jared Harrington MD Procedure: IR CEREBRAL ARTERIOGRAM DIAGNOSTIC WITH INTERVENTION Location: Interventional Radiology: [facility] Post-Anesthesia Vitals No vitals data found for the desired time range. BP 144/77 HR 62 SpO2 97% RR 16 Post Anesthesia Evaluation Note Evaluation location: ICU Patient participation: recovered; patient participated in evaluation Level of consciousness: sleepy but conscious Pain management: adequate Hydration: normovolemia Temperature: 36.0°C - 38.4°C Airway patency: adequate Perioperative Events Post-op nausea and vomiting: no PONV Postoperative Status Cardiovascular status: hemodynamically stable Respiratory status: spontaneous ventilation and supplemental oxygen Follow-up needed: none Additional comments: Post-Anesthesia Evaluation Attestation: I reviewed and agree the indicated post-anesthesia care was provided. I have reviewed fofana portions of the indicated post anesthesia care. I have examined the patient's vitals, physical status, and complications and agree with what is documented. Staff name: Jared Harrington MD Date: 11/22/2022 ICU Information Blood Products Given-no NSICU information no ICP monitor used no anticonvulsants were given Staff involved in transport include: anesthesiologist, PROFESSOR OF BIOLOGICAL SCIENCES and OR nurse Perioperative Events There were no known notable events for this encounter. * Anesthesia Preprocedure Evaluation - Jared Harrington MD - 11/22/2022 10:55 PM CDT Anesthesia Pre-Procedure Evaluation Name: Anayeli Mobley : 1945 Age: 77 y.o. Sex: female Procedure Info: Procedure Information Anesthesia Start Date/Time: 11/22/222243 Scheduled providers: Jared Harrington MD Procedure: IR CEREBRAL ARTERIOGRAM DIAGNOSTIC WITH INTERVENTION Location: Interventional Radiology: [facility] Physical Assessment Vital Signs (last filed in past 24 hours): Patient History Not on File Current Medications Not on File Review of Systems/Medical History patient unresponsive PONV Screening: Non-smoker and Female sex Pulmonary COPD (Home O2 4L), severe Cardiovascular Exercise tolerance: unknown Hypertension, Past [place] (11/18/22): non-STEMI, acute (< 6 months) Coronary artery disease Coronary artery bypass graft (2011) PTCA: drug-eluting stent PVD Troponin 2.65 Neuro/Psych CVA (L ICA occlusion; s/p tPA), residual symptoms, < 9 Months Weakness (right) Aphasic, facial droop Endocrine/Other Anemia (Hgb 10.7) Physical Exam Airway Findings Mallampati: unable to assess Mouth opening: good Dental Findings: Upper dentures and lower dentures Cardiovascular Findings: Rhythm: regular Rate: normal Pulmonary Findings: Breath sounds clear to auscultation. Neurological Findings: Altered mental status Constitutional findings: No acute distress Diagnostic Tests Hematology: No results found for: [...] intravenous NPO status: waived due to emergency Informed Consent Anesthetic plan and risks discussed with spouse. Plan discussed with: PROFESSOR OF BIOLOGICAL SCIENCES. Alerts documented in this encounter Plan of Treatment Not on file documented as of this encounter Visit Diagnoses Not on filedocumented in this encounter Administered Medications Inactive Administered Medications Medication Order MAR Action Action Date Dose Rate Site artificial tears (PF) single dose ophthalmic solution Both Eyes, INTRA-PROCEDURE MED, Starting on 11/22/22 at 2248, Until 11/22/22 at 2350, Anesthesia Intra-op Given 11/22/2022 10:48 PM CDT 2 drops dexamethasone sodium phosphate (DECADRON PHOSPHATE) injection Intravenous, INTRA-PROCEDURE MED, Starting on 11/22/22 at 2305, Until 11/22/22 at 2350, Anesthesia Intra-op Given 11/22/2022 11:05 PM CDT 4 mg ePHEDrine 50 mg/mL 50 mg in sodium chloride PF 0.9% 5 mL IV syringe 5 mL, Intravenous, INTRA-PROCEDURE MED(CONT), Starting on 11/22/22 at 2314, Until 11/22/22 at 2350, Anesthesia Intra-op Bolus 11/22/2022 11:30 PM CDT 10 mg documented in this encounter Additional Health Concerns Assessment Noted Time A fall risk assessment has been complete d for the patient 11/22/2022 11:55 PM CDT documented as of this encounter Care Teams Coating Mixer Relationship Specialty Start Date End Date Whitney Burnham, RN PCP - General 11/22/22 11/22/22 documented as of this encounter
--- OUTSIDE RECORDS SUMMARY | 2022-12-06 12:34 | XMS REPORT | Encounter Summary ---
Author Author [facility] Organization [facility] Address Unknown Phone Unavailable Care Team Providers Care Shellfish Meat Separator Operator Name Role Phone Whitney Burnham RN PCP Unavailable Reason for Visit * Auth/Cert (Routine) Specialty Diagnoses / Procedures Referred By Grace wilkerson Referred To Contact Diagnoses Acute ischemic stroke (HCC) stroke Referral ID Status Reason Start Date Expiration Date Visits Re quested Visits Authorized [id number] 1 1 Encounter Details Date Type Department Care Team Description 11/30/2022 1:17 PM CDT - 11/30/2022 11:59 PM CDT Hospital Encounter [facility]: [facility] [address] [facility], [address] [place] [phone] Anita Layton, DO [address] [place], [place] [phone] Discharge Disposition: Home or Self Care Social [...] five tablets by mouth daily. 0 cloNIDine (YBPZMWGI-KTJ-1) 0.2 mg/day patch Apply one patch to [...] disease 0 documented as of this encounter Discharge Disposition Disposition Code Departure Means Destination Home or Self Nursing Home documented in this encounter Plan of Treatment Scheduled Orders [...] Type Associated Problems Recent Progress Patient-Stated? Author [facility] On track(11/27/19 11:13 AM CDT) No Mando [...] has been complete d for the patient 11/30/2022 8:38 AM CDT documented as of this encounter Care Teams Shellfish Meat Separator Operator Relationship Specialty Start Date End Date Whitney Burnham, JONELLE PCP - General 11/23/22 documented as of this encounter
--- OUTSIDE RECORDS SUMMARY | 2022-12-06 12:34 | XMS REPORT | Encounter Summary ---
Author Author [facility] Organization [facility] Address Unknown Phone Unavailable Care Team Providers Care Supervisor Farm Equipment Maintenance Name Role Phone Whitney Burnham RN PCP Unavailable Reason for Visit * Auth/Cert (Routine) Specialty Diagnoses / Procedures Referred By Grace t Referred To Contact Diagnoses Acute ischemic stroke (HCC) stroke Referral ID Status Reason Start Date Expiration Date Visits Re quested Visits Authorized [id number] 1 1 Encounter Details Date Type Department Care Team Description 11/23/2022 1:04 AM CDT - 11/23/2022 11:59 PM CDT Hospital Encounter Vascular Access Team: [facility] [address] [facility] [address], [address] [place] [address] Dontrell Bender, ASSOCIATE QUALITY ENGINEER-BACK FEEDER [employer] [address] [place] [address] Discharge Disposition: Home or Self Care Social [...] five tablets by mouth daily. 0 cloNIDine (BEITDWHN-UUJ-1) 0.2 mg/day patch Apply one patch to [...] mouth four times daily. 0 11/30/2022 cloNIDine (XBYEUOLM-YGI-3) 0.3 mg/day patch Apply one patch to [...] Code Departure Means Destination Home or Self Longterm documented in this encounter Plan of Treatment [...] as of this encounter Care Teams Supervisor Farm Equipment Maintenance Relationship Specialty Start Date End Date Whitney Burnham, JONELLE PCP - General 11/23/22 documented as of this encounter
--- OUTSIDE RECORDS SUMMARY | 2022-12-06 12:34 | XMS REPORT | Encounter Summary ---
Author Author [facility] Organization [facility] Address Unknown Phone Unavailable Care Team Providers Care Legal Mediator Name Role Phone Whitney Burnham RN PCP Unavailable Reason for Visit * Auth/Cert (Routine) Specialty Diagnoses / Procedures Referred By Grace t Referred To Contact Diagnoses Acute ischemic stroke (HCC) stroke Referral ID Status Reason Start Date Expiration Date Visits Re quested Visits Authorized [id number] 1 1 Encounter Details Date Type Department Care Team Description 11/25/2022 6:43 AM CDT - 11/25/2022 11:59 PM CDT Hospital Encounter Cardiovascular Medicine: [facility] [address] [facility], [address] [place] [address] Marcus Villarreal, DO [address] [place] [address] Naheed Martin RN Discharge Disposition: [...] five tablets by mouth daily. 0 cloNIDine (AZNGFAIE-TVS-8) 0.2 mg/day patch Apply one patch to [...] mouth four times daily. 0 11/30/2022 cloNIDine (ABUXESDH-DFB-2) 0.3 mg/day patch Apply one patch to [...] Code Departure Means Destination Home or Self Assisted documented in this encounter Plan of Treatment [...] documented as of this encounter Care Teams Legal Mediator Relationship Specialty Start Date End Date Whitney Burhnam, RN PCP - General 11/23/22 documented as of this encounter
--- OUTSIDE RECORDS SUMMARY | 2022-12-06 12:34 | XMS REPORT | Encounter Summary ---
Author Author [facility] Organization [facility] Address Unknown Phone Unavailable Care Team Providers Care Signing Teacher Name Role Phone Whitney Burnham RN PCP Unavailable Reason for Visit * Auth/Cert (Routine) Specialty Diagnoses / Procedures Referred By Grace wilkerson Referred To Contact Diagnoses Acute ischemic stroke (HCC) stroke Referral ID Status Reason Start Date Expiration Date Visits Re quested Visits Authorized [id number] 1 1 Encounter Details Date Type Department Care Team Description 11/27/2022 5:20 PM CDT Anesthesia Event Interventional Radiology: [facility] [address] [facility] [address], [address] [place] [phone] Sathish Farris MD [address] [address] Alex Presley MD [address] [address] Anesthesia Record Procedure Summary Procedure Name Responsible [...] 1744; Abdomen, Left Upper Medial; 18FR; Yes 11/27/221744 by Ayesha Gandara, JONELLE Peripheral IV 11/23/22; [...] IR GASTROSTOMY TUBE PLACEMENT Location: Interventional Radiology: [facility] Post-Anesthesia Vitals BP: 114/53 (11/27 1824) Pulse: [...] IR GASTROSTOMY TUBE PLACEMENT Location: Interventional Radiology: [facility] Physical Assessment Vital Signs (last filed in [...] Take five tablets by mouth daily. cloNIDine (QOUAHMJA-MYZ-2) 0.2 mg/day patch Apply one patch to top of skin as directed every 7 days. cloNIDine (UWUOPYWG-OPW-4) 0.3 mg/day patch Apply one patch to [...] 24 hours: Yes Hypertension, well controlled Past [place] (11/18/22): non-STEMI, acute (< 6 months) Coronary [...] with spouse and patient. Plan discussed with: PROGRAM PLANNER and surgeon/proceduralist. Comments: (Consent done with spouse. Spouse wants to continue DNAR-FI during the procedure. He specifically does not want intubation nor chest compression. No heroic measures will be done. ) Alerts documented in this encounter Plan of Treatment Not on file documented as of this encounter Goals Goal Patient Goal Type Associated Problems Recent Progress Patient-Stated? Author [facility] On track(11/27/19 11:13 AM CDT) No Mando [...] documented as of this encounter Care Teams Signing Teacher Relationship Specialty Start Date End Date Whitney Burnham, RN PCP - General 11/23/22 documented as of this encounter
--- OUTSIDE RECORDS SUMMARY | 2022-12-06 12:34 | XMS REPORT | Encounter Summary ---
Author Author [facility] Organization [facility] Address Unknown Phone Unavailable Care Team Providers Care Parcel Post Weigher Name Role Phone Whitney Burnham RN PCP Unavailable Reason for Visit * Auth/Cert (Routine) Specialty Diagnoses / Procedures Referred By Grace t Referred To Contact Diagnoses Acute ischemic stroke (HCC) stroke Referral ID Status Reason Start Date Expiration Date Visits Re quested Visits Authorized [id number] 1 1 Encounter Details Date Type Department Care Team Description 11/28/2022 5:45 AM CDT - 11/28/2022 11:59 PM CDT Hospital Encounter Vascular Access Team: [facility] [address] [facility] [address], [address] [place] [address] Topher Moy MD [address] [place] [address] Discharge Disposition: Home or Self Care Social [...] five tablets by mouth daily. 0 cloNIDine (FCCKBSRR-BIK-4) 0.2 mg/day patch Apply one patch to [...] mouth four times daily. 0 11/30/2022 cloNIDine (MWOOGNYL-KPL-6) 0.3 mg/day patch Apply one patch to [...] Code Departure Means Destination Home or Self [facility] documented in this encounter Plan of Treatment Not on file documented as of this encounter Goals Goal Patient Goal Type Associated Problems Recent Progress Patient-Stated? Author [facility] On track(11/27/19 11:13 AM CDT) No Mando [...] documented as of this encounter Care Teams Parcel Post Weigher Relationship Specialty Start Date End Date Whitney Burnham, JONELLE PCP - General 11/23/22 documented as of this encounter
--- OUTSIDE RECORDS SUMMARY | 2022-12-06 12:34 | XMS REPORT | Encounter Summary ---
Author Author [facility] Organization [facility] Address Unknown Phone Unavailable Care Team Providers Care Offset Duplicating Machine Operator Name Role Phone Whitney Burnham RN [...] Type Associated Problems Recent Progress Patient-Stated? Author [facility] On track(11/27/19 11:13 AM CDT) No Mando Johns RN documented as of this encounter Visit Diagnoses Not on filedocumented in this encounter Additional Health Concerns Assessment Noted Time A fall risk assessment has been complete d for the patient 11/30/2022 8:38 AM CDT documented as of this encounter Care Teams Offset Duplicating Machine Operator Relationship Specialty Start Date End Date Whitney Burnham, JONELLE PCP - General 11/23/22 documented as of this encounter
--- OUTSIDE RECORDS SUMMARY | 2022-12-06 12:34 | XMS REPORT | Encounter Summary ---
Author Author [facility] Organization [facility] Address Unknown Phone Unavailable Care Team Providers Care Telephone Surveyor Name Role Phone Whitney Burnham RN PCP Unavailable Reason for Visit * Auth/Cert (Routine) Specialty Diagnoses / Procedures Referred By Grace t Referred To Contact Diagnoses Acute ischemic stroke (HCC) stroke Referral ID Status Reason Start Date Expiration Date Visits Re quested Visits Authorized [id number] 1 1 Encounter Details Date Type Department Care Team Description 11/29/2022 5:30 AM CDT - 11/29/2022 11:59 PM CDT Hospital Encounter Vascular Access Team: [facility] [address] [facility] [address], [address] [place] [address] Topher Moy MD [address] [place] [address] Discharge Disposition: Home or Self [...] five tablets by mouth daily. 0 cloNIDine (QAUNQYOL-VWT-2) 0.2 mg/day patch Apply one patch to [...] mouth four times daily. 0 11/30/2022 cloNIDine (DXQIBTKZ-HCY-4) 0.3 mg/day patch Apply one patch to [...] Code Departure Means Destination Home or Self Senior Living documented in this encounter Plan of Treatment Not on file documented as of this encounter Goals Goal Patient Goal Type Associated Problems Recent Progress Patient-Stated? Author [facility] On track(11/27/19 11:13 AM CDT) No [...] documented as of this encounter Care Teams Telephone Surveyor Relationship Specialty Start Date End Date Whitney Burnham, JONELLE PCP - General 11/23/22 documented as of this encounter
--- OUTSIDE RECORDS SUMMARY | 2022-12-06 12:34 | XMS REPORT | Encounter Summary ---
Author Author [facility] Organization [facility] Address Unknown Phone Unavailable Care Team Providers Care Gasoline Tractor Operator Name Role Phone Whitney Burnham RN PCP Unavailable Reason for Visit * Auth/Cert (Routine) Specialty Diagnoses / Procedures Referred By Grace t Referred To Contact Diagnoses Acute ischemic stroke (HCC) stroke Referral ID Status Reason Start Date Expiration Date Visits Re quested Visits Authorized [id number] 1 1 Encounter Details Date Type Department Care Team Description 11/25/2022 12:46 PM CDT Anesthesia Event Cardiovascular Medicine: [facility] [address] [facility], [address] [place] [address] Shyla Koehler DO [address] [place], [place] [address] [place] [address] Anesthesia Record Procedure Summary Procedure Name Responsible [...] Drains, and Airways Type Details Placement Removal ZZZPuncture Wound (Sheath) 11/22/22; 2313; Right; Radial; 11/25/22; 18111/22/22 231 by Sandra Brooks RN 11/25/221818 by Naheed Mesa, JONELLE Peripheral IV [...] Naheed Martin RN Procedure: TRANSESOPHAGEAL ECHO Location: Cardiology:[facility] Post-Anesthesia Vitals BP: [...] Shyla Koehler DO Procedure: TRANSESOPHAGEAL ECHO Location: Cardiology:[facility] Physical Assessment Vital Signs (last [...] Take five tablets by mouth daily. cloNIDine (OSDZYYQN-EKM-6) 0.3 mg/day patch Apply one patch to [...] severe Cardiovascular Exercise tolerance: unknown Hypertension, Past [place] (11/18/22): non-STEMI, acute (< 6 months) Coronary [...] with spouse and patient. Plan discussed with: HEAVY EQUIPMENT DIESEL MECHANIC. Comments: (Consent done with spouse. Spouse wants [...] documented as of this encounter Care Teams Gasoline Tractor Operator Relationship Specialty Start Date End Date Whitney Burnham, JONELLE PCP - General 11/23/22 documented as of this encounter
--- OUTSIDE RECORDS SUMMARY | 2022-12-06 12:34 | XMS REPORT | Encounter Summary ---
Author Author [facility] Organization [facility] Address Unknown Phone Unavailable Care Team Providers Care Model Builder Name Role Phone Whitney Burnham RN PCP Unavailable Reason for Visit * Reason Comments CLARISSE Pre-Procedure Instuctions Encounter Details Date Type Department Care Team Description 11/24/2022 Documentation Cardiovascular Medicine: [facility] [address] [facility] [address], [address] [place] [address] Maria C Man, RN CLARISSE [...] Age: 77 y.o. : 1945 RM #: [id number] RN: Naheed Phone #: Isolation: none Communication [...] (hypertension) 11/22/2022 • PAD (peripheral artery disease) ([facility]) 11/22/2022 • CAD (coronary artery disease) 11/22/2022 • COPD (chronic obstructive pulmonary disease) ([facility]) 11/22/2022 • Troponin level elevated 11/22/2022 • Tissue plasminogen activator (tPA) administered at other facility within 24 hours before current admission 11/22/2022 • Acute ischemic stroke ([facility]) 11/22/2022 • NSTEMI (non-ST elevated myocardial infarction) ([facility]) 11/18/2022 Past Medical History: Diagnosis Date • CAD (coronary artery disease) • COPD (chronic obstructive pulmonary disease) ([facility]) • HTN (hypertension) • NSTEMI (non-ST elevated myocardial infarction) ([facility]) • PAD (peripheral artery disease) ([facility]) Surgical History: Procedure Laterality Date • HX [...] documented as of this encounter Care Teams Model Builder Relationship Specialty Start Date End Date Whitney Burnham, RN PCP - General 11/23/22 documented as of this encounter
--- OUTSIDE RECORDS SUMMARY | 2022-12-06 12:34 | XMS REPORT | Encounter Summary ---
Author Author [facility] Organization [facility] Address Unknown Phone Unavailable Care Team Providers Care Proof Sorter Name Role Phone Whitney Burnham RN PCP Unavailable Encounter Details Date Type Department Care Team Description 11/22/2022 12:05 AM CDT - 11/22/2022 12:09 AM CDT Hospital Encounter Imaging: [facility] [address], [address] [place] [address] Discharge Disposition: Home or Self [...] five tablets by mouth daily. 0 cloNIDine ([id number]) 0.2 mg/day patch Apply one patch to [...] Code Departure Means Destination Home or Self Skilled Nursing documented in this encounter Plan of Treatment [...] documented as of this encounter Care Teams Proof Sorter Relationship Specialty Start Date End Date Whitney Burnham, JONELLE PCP - General 11/22/22 11/22/22 documented as of this encounter
--- OUTSIDE RECORDS SUMMARY | 2022-12-06 12:34 | XMS REPORT | Encounter Summary ---
Author Author [facility] Organization [facility] Address Unknown Phone Unavailable Care Team Providers Care Laborer Orchard Name Role Phone Whitney Burnham RN PCP Unavailable Encounter Details Date Type Department Care Team Description 11/22/2022 12:10 AM CDT - 11/22/2022 12:14 AM CDT Hospital Encounter Imaging: [facility] [address], [address] [place] [address] Discharge Disposition: Home or Self [...] five tablets by mouth daily. 0 cloNIDine ([id number]) 0.2 mg/day patch Apply one patch to [...] documented as of this encounter Care Teams Laborer Orchard Relationship Specialty Start Date End Date Whitney Burnham, JONELLE PCP - General 11/22/22 11/22/22 documented as of this encounter
[2022-12-06] MEDS ORDERED: LORazepam 1 MG TABLET SL PRN (12:45)
[2022-12-06] MEDS ORDERED: BISACODYL 10 MG SUPPOSITORY PR PRN (12:45)
[2022-12-06] MEDS ORDERED: SALIVA SUBSTITUTE 60 ML SPRAY MM PRN (12:45)
[2022-12-06] MEDS ORDERED: ACETAMINOPHEN 650 MG SUPPOSITORY PR PRN (12:45)
[2022-12-06] MEDS ORDERED: PROMETHAZINE INJ 25 MG/ML VIAL IVP PRN (12:45)
[2022-12-06] MEDS ORDERED: ONDANSETRON INJECTION 4 MG/2 ML (SDV) IVP PRN (12:45)
[2022-12-06] MEDS ORDERED: ARTIFICIAL TEARS Ophth solution 0.4 ML UNIT DOSE OU PRN (12:45)
[2022-12-06] MEDS ORDERED: ATROPINE 1% OPHTHALMIC SOLN 2 ML SL PRN (12:45)
[2022-12-06] MEDS ORDERED: GLYCOPYRROLATE INJ 0.2 MG/ML 2 ML VIAL IV PRN (12:45)
[2022-12-06] MEDS ORDERED: RT-Ipratropium/Albuterol NEB 3 ML VIAL INH PRN (12:45)
[2022-12-06] MEDS ORDERED: LIDOCAINE UROJET 2% GEL 10 ML PKG TOP ONE (12:45)
[2022-12-06 14:30] VITALS: BP 166/74
[2022-12-06] MEDS: SCOPOLAMINE 1.5 MG PATCH TOP SCH (14:35)
[2022-12-06] MEDS: morphine INJ 4 MG/ML 1 ML (VIAL/SYRINGE) IV PRN (19:38)
[2022-12-07] MEDS: morphine INJ 4 MG/ML 1 ML (VIAL/SYRINGE) IV PRN ×2 (06:16→20:09)
--- NOTE | 2022-12-07 12:11 | History & Physical ---
BELEN COLEMAN 12/07/22 1211: History of Present Illness History of Present Illness Reason for visit/HPI 12/07/2022: CC: Complete decompensation HPI: Anayeli, 77F, is unable to discuss any changes in presentation. She was tracking movement with her eyes, but then would look off into space. Unable to ask ROS questions. She appears to be comfortable. She is on comfort care. Date of Admission Dec 06, 2022 at 12:30 Date Seen by a Provider: Dec 07, 2022 Time Seen by a Provider: 09:35 I consulted on this patient on 12/07/22 12:05 Attending Physician Benja Ramon - [facility] Admitting Physician Admitting Physician: Adriana Osullivan DO Attending Physician: Adriana Osullivan DO Consult Allergies and Home Medications Allergies Coded Allergies: amlodipine (Verified Allergy, Intermediate, Rash, 07/15/22) Sulfa (Sulfonamide Antibiotics) (Verified Allergy, Unknown, 07/09/22) Patient Home Medication List Home Medication List Reviewed: Yes Albuterol Sulfate (Ventolin Hfa) 8.5 Gm Hfa.aer.ad, 2 PUFF IH Q4H PRN for SHORTNESS OF BREATH, (Reported) Entered as Reported by: STACIE VITAL on 04/29/15 1129 Aspirin (Aspirin EC) 81 Mg Tablet.dr, 81 MG PO DAILY, (Reported) Entered as Reported by: MAC RENAE on 02/13/22 1658 Atorvastatin Calcium (Atorvastatin Calcium) 80 Mg Tablet, 80 MG NG HS, (Reported) Entered as Reported by: MAC RENAE on 11/30/22 1329 Carvedilol (Carvedilol) 25 Mg Tablet, 25 MG NG BID WITH MEALS, (Reported) Entered as Reported by: MAC RENAE on 11/30/22 1329 Cholecalciferol (Vitamin D3) (Vitamin D3) 25 Mcg (1000 Unit) Tablet, 125 MCG PO DAILY, (Reported) Entered as Reported by: MAC RENAE on 11/30/22 1329 Clonidine (Clonidine TTS 2 Patch) 0.2 Mg/24 Hour Patch.tdwk, 1 PATCH TD Q7D, (Reported) Entered as Reported by: MAC RENAE on 11/30/22 1329 Clonidine HCl (Clonidine HCl) 0.1 Mg Tablet, 0.1 MG PO Q4H PRN for SBP>160, (Reported) Entered as Reported by: MAC RENAE on 11/30/22 132 Clopidogrel Bisulfate (Clopidogrel) 75 Mg Tablet, 75 MG PO DAILY, (Reported) Entered as Reported by: MAC RENAE on 11/30/22 132 Diazepam (Diazepam) 5 Mg Tablet, 5 MG PO TID PRN for ANXIETY, (Reported) Entered as Reported by: MAC RENAE on 02/13/22 1657 Dicyclomine HCl (Dicyclomine HCl) 10 Mg Capsule, 10-20 MG PO QID, (Reported) Entered as Reported by: MAC RENAE on 11/30/22 1336 Docusate Sodium (Stool Softener) 50 Mg/5 Ml Liquid, 10 ML PO BID, (Reported) Entered as Reported by: MAC RENAE on 11/30/22 132 Famotidine (Famotidine) 40 Mg/5 Ml (8 Mg/Ml) Oral.susp, 2.5 ML FEEDING BID, (Reported) Entered as Reported by: MAC RENAE on 11/30/22 132 Ferrous Sulfate (Ferrous Sulfate) 325 Mg (65 Mg Iron) Tablet, 325 MG PO DAILY, (Reported) Entered as Reported by: MAC RENAE on 11/30/22 132 Hydralazine HCl (Hydralazine HCl) 25 Mg Tablet, 50 MG PO Q8H, (Reported) Entered as Reported by: MAC RENAE on 11/13/22 1139 Lisinopril (Lisinopril) 20 Mg Tablet, 40 MG PO DAILY, (Reported) Entered as Reported by: MAC RENAE on 11/30/22 132 Meloxicam (Meloxicam) 15 Mg Tablet, 15 MG PO DAILY, (Reported) Entered as Reported by: MAC RENAE on 02/13/22 165 Nitroglycerin (Nitroglycerin) 0.4 Mg Tab.subl, 0.4 MG SL UD PRN for CHEST PAIN, (Reported) Entered as Reported by: MAC RENAE on 11/30/22 132 Pregabalin (Pregabalin) 25 Mg Capsule, 25 MG PO TID, (Reported) Entered as Reported by: MAC RENAE on 11/13/22 1143 Spironolactone (Aldactone) 50 Mg Tablet, 50 MG PO DAILY, (Reported) Entered as Reported by: MAC RENAE on 11/13/22 1139 Topiramate (Topamax) 25 Mg Tablet, 25 MG PO DAILY, (Reported) Entered as Reported by: MAC RENAE on 11/30/22 1329 Discontinued Medications Albuterol Sulfate (Albuterol Sulfate) 2.5 Mg/3 Ml (0.083 %) Vial.neb, 2.5 MG NEB Q6H PRN for SHORTNESS OF BREATH, (Reported) Discontinued Reason: No Longer Taking Entered as Reported by: MAC RENAE on 11/13/22 1139 Carvedilol (Carvedilol) 12.5 Mg Tablet, 12.5 MG PO BID WITH MEALS, (Reported) Discontinued Reason: No Longer Taking Entered as Reported by: MAC RENAE on 07/10/22 0815 Cephalexin (Cephalexin) 500 Mg Tablet, 500 MG PO QID Discontinued Reason: No Longer Taking Prescribed by: TJ DICK on 11/21/22 1639 Clonidine (Clonidine TTS 3 Patch) 0.3 Mg/24 Hour Patch.tdwk, 0.3 MG TD MON, (Reported) Discontinued Reason: No Longer Taking Entered as Reported by: MAC RENAE on 11/13/22 1139 Levofloxacin (Levofloxacin) 500 Mg Tablet, 500 MG PO DAILY Discontinued Reason: No Longer Taking Prescribed by: SEBASTIAN JOHNSON on 11/29/22 0748 Lisinopril (Lisinopril) 40 Mg Tablet, 40 MG PO DAILY, (Reported) Discontinued Reason: No Longer Taking Entered as Reported by: MAC RENAE on 02/13/22 1657 Simvastatin (Simvastatin) 40 Mg Tablet, 40 MG PO HS, (Reported) Discontinued Reason: No Longer Taking Entered as Reported by: MAC RENAE on 07/10/22 0815 Past Uamduoo-Ptqmej-Kjevav Hx Patient Social History Tobacco Use?: No Pt feels they are or have been: No Immunizations Up To Date Date of Influenza Vaccine: Oct 30, 2022 First/Initial COVID19 Vaccinat: YES Second COVID19 Vaccination Levar: YES Tetanus Booster (TDap): More Than 5 Years Date of Pneumonia Vaccine: Jan 29, 2014 Current Status status: No status: No Communicates: Does Not Communicate, Unable To Communicate, Points Primary Language: Yoruba Preferred Spoken Language: Yoruba Is interpretation needed?: No Past Medical History Surgeries: CABG, Coronary Stent, Hysterectomy COPD Currently Using CPAP: No Currently Using BIPAP: No Coronary Artery Disease, High Cholesterol, Hypertension 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 Heart Disease, COPD Review of Systems ROS-Unable to Obtain: pt not able to communicate Constitutional: no symptoms reported EENTM: no symptoms reported Respiratory: no symptoms reported Cardiovascular: no symptoms reported Gastrointestinal: no symptoms reported Genitourinary: no symptoms reported Musculoskeletal: no symptoms reported Skin: no symptoms reported Psychiatric/Neurological: No Symptoms Reported Physical Exam Vital Signs Vital Signs - First Documented 12/06/22 14:30 Temp 36.0 Pulse 73 Resp 20 B/P (MAP) 166/74 (104) Pulse Ox 98 O2 Delivery Nasal Cannula O2 Flow Rate 4.00 Capillary Refill : Height, Weight, BMI Height: 4'11.00" Weight: 151lbs. 14.8oz. [id number]; 24.99 BMI Method:Stated General Appearance: Chronically ill Eyes: Bilateral Eye Normal Inspection HEENT: No Pale Conjunctivae (L), No Pale Conjunctivae (R), No Scleral Icterus (L), No Scleral Icterus (R) Neck: Normal Inspection, Supple Respiratory: Lungs Clear, No Accessory Muscle Use, No Respiratory Distress, Wheezing Cardiovascular: Regular Rate, Rhythm, No Edema, No JVD, No Murmur, Normal Peripheral Pulses Gastrointestinal: Normal Bowel Sounds, No Pulsatile Mass, Soft Rectal: Deferred Extremity: Normal Capillary Refill Neurologic/Psychiatric: Other (unable to communicate, slight twitching of legs ) Skin: Normal Color, Warm/Dry Lymphatic: No Adenopathy Assessment/Plan Assessment and Plan 12/07/2022: A/P: -Complete decompensation * Comfort care * Morphine * Lorazepam -dysphagia * PEG tube -Hx of stroke Pt remains on comfort care, continue to support patient with poor prognosis Admission Diagnosis Admission Status: Inpatient Order (span 2 midnights) Reason for Inpatient Admission: PEG tube, poor prognosis, Comfort care ADRIANA OSULLIVAN 12/07/222041: History of Present Illness History of Present Illness Reason for visit/HPI CC: End of life after failing ARU HPI: This is a 77yoWF clinic patient of [facility] who presented to [facility] for end of life care after failing ARU. Allergies and Home Medications Allergies Coded Allergies: amlodipine (Verified Allergy, Intermediate, Rash, 07/15/22) Sulfa (Sulfonamide Antibiotics) (Verified Allergy, Unknown, 07/09/22) Patient Home Medication List Albuterol Sulfate (Ventolin Hfa) 8.5 Gm Hfa.aer.ad, 2 PUFF IH Q4H PRN for SHORTNESS OF BREATH, (Reported) Entered as Reported by: STACIE VITAL on 04/29/15 1129 Aspirin (Aspirin EC) 81 Mg Tablet.dr, 81 MG PO DAILY, (Reported) Entered as Reported by: MAC RENAE on 02/13/22 1658 Atorvastatin Calcium (Atorvastatin Calcium) 80 Mg Tablet, 80 MG NG HS, (Reported) Entered as Reported by: MAC RENAE on 11/30/22 1329 Carvedilol (Carvedilol) 25 Mg Tablet, 25 MG NG BID WITH MEALS, (Reported) Entered as Reported by: MAC RENAE on 11/30/22 1329 Cholecalciferol (Vitamin D3) (Vitamin D3) 25 Mcg (1000 Unit) Tablet, 125 MCG PO DAILY, (Reported) Entered as Reported by: MAC RENAE on 11/30/22 1329 Clonidine (Clonidine TTS 2 Patch) 0.2 Mg/24 Hour Patch.tdwk, 1 PATCH TD Q7D, (Reported) Entered as Reported by: MAC RENAE on 11/30/22 1329 Clonidine HCl (Clonidine HCl) 0.1 Mg Tablet, 0.1 MG PO Q4H PRN for SBP>160, (Reported) Entered as Reported by: MAC RENAE on 11/30/22 1329 Clopidogrel Bisulfate (Clopidogrel) 75 Mg Tablet, 75 MG PO DAILY, (Reported) Entered as Reported by: MAC RENAE on 11/30/22 1329 Diazepam (Diazepam) 5 Mg Tablet, 5 MG PO TID PRN for ANXIETY, (Reported) Entered as Reported by: MAC RENAE on 02/13/22 1657 Dicyclomine HCl (Dicyclomine HCl) 10 Mg Capsule, 10-20 MG PO QID, (Reported) Entered as Reported by: MAC RENAE on 11/30/22 1336 Docusate Sodium (Stool Softener) 50 Mg/5 Ml Liquid, 10 ML PO BID, (Reported) Entered as Reported by: MAC RENAE on 11/30/22 1329 Famotidine (Famotidine) 40 Mg/5 Ml (8 Mg/Ml) Oral.susp, 2.5 ML FEEDING BID, (Reported) Entered as Reported by: MAC RENAE on 11/30/22 132 Ferrous Sulfate (Ferrous Sulfate) 325 Mg (65 Mg Iron) Tablet, 325 MG PO DAILY, (Reported) Entered as Reported by: MAC RENAE on 11/30/22 1329 Hydralazine HCl (Hydralazine HCl) 25 Mg Tablet, 50 MG PO Q8H, (Reported) Entered as Reported by: MAC RENAE on 11/13/22 1139 Lisinopril (Lisinopril) 20 Mg Tablet, 40 MG PO DAILY, (Reported) Entered as Reported by: MAC RENAE on 11/30/22 1329 Meloxicam (Meloxicam) 15 Mg Tablet, 15 MG PO DAILY, (Reported) Entered as Reported by: MAC RENAE on 02/13/22 1657 Nitroglycerin (Nitroglycerin) 0.4 Mg Tab.subl, 0.4 MG SL UD PRN for CHEST PAIN, (Reported) Entered as Reported by: MAC RENAE on 11/30/22 1329 Pregabalin (Pregabalin) 25 Mg Capsule, 25 MG PO TID, (Reported) Entered as Reported by: MAC RENAE on 11/13/22 1143 Spironolactone (Aldactone) 50 Mg Tablet, 50 MG PO DAILY, (Reported) Entered as Reported by: MAC RENAE on 11/13/22 1139 Topiramate (Topamax) 25 Mg Tablet, 25 MG PO DAILY, (Reported) Entered as Reported by: MAC RENAE on 11/30/22 1329 Discontinued Medications Albuterol Sulfate (Albuterol Sulfate) 2.5 Mg/3 Ml (0.083 %) Vial.neb, 2.5 MG NEB Q6H PRN for SHORTNESS OF BREATH, (Reported) Discontinued Reason: No Longer Taking Entered as Reported by: MAC RENAE on 11/13/22 1139 Carvedilol (Carvedilol) 12.5 Mg Tablet, 12.5 MG PO BID WITH MEALS, (Reported) Discontinued Reason: No Longer Taking Entered as Reported by: MAC RENAE on 07/10/22 0815 Cephalexin (Cephalexin) 500 Mg Tablet, 500 MG PO QID Discontinued Reason: No Longer Taking Prescribed by: TJ DICK on 11/21/22 1639 Clonidine (Clonidine TTS 3 Patch) 0.3 Mg/24 Hour Patch.tdwk, 0.3 MG TD MON, (Reported) Discontinued Reason: No Longer Taking Entered as Reported by: MAC RENAE on 11/13/22 1139 Levofloxacin (Levofloxacin) 500 Mg Tablet, 500 MG PO DAILY Discontinued Reason: No Longer Taking Prescribed by: SEBASTIAN JOHNSON on 11/29/22 0748 Lisinopril (Lisinopril) 40 Mg Tablet, 40 MG PO DAILY, (Reported) Discontinued Reason: No Longer Taking Entered as Reported by: MAC RENAE on 02/13/22 1657 Simvastatin (Simvastatin) 40 Mg Tablet, 40 MG PO HS, (Reported) Discontinued Reason: No Longer Taking Entered as Reported by: MAC RENAE on 07/10/22 0815 Past Yyrvecs-Oooyyo-Svaypc Hx Patient Social History Marrital Status: Employed/Student: retired Smoking Status: Former Smoker Past Medical History Stroke Family Medical History Patient reports no known family medical history. Review of Systems Constitutional: see HPI Physical Exam General Appearance: No Apparent Distress, WD/WN, Chronically ill, Other (semi- comatose) Assessment/Plan Assessment and Plan End of life care Resp failure Reent CVA Dysphagia Plan: End of life care Admission Diagnosis Admission Status: Inpatient Order (span 2 midnights) Reason for Inpatient Admission: end of life care Supervisory-Addendum Brief Verification & Attestation Participated in pt care: history, MDM, physical Personally performed: exam, history, MDM, supervision of care Care discussed with: Medical Student Procedures: n/a Results interpretation: Verified all documentation Verification and Attestation of Medical Student E/M Service A medical student performed and documented this service in my presence. I reviewed and verified all information documented by the medical student and made modifications to such information, when appropriate. I personally performed the physical exam and medical decision making. Adriana Osullivan, Dec 07, 2022,20:40 BELEN COLEMAN Dec 07, 2022 12:11 ADIRANA OSULLIVAN DO Dec 07, 2022 20:42
[2022-12-08] MEDS: morphine INJ 4 MG/ML 1 ML (VIAL/SYRINGE) IV PRN ×4 (02:16→16:19)
--- NOTE | 2022-12-08 12:46 | Progress Note ---
JEREMY WELSH 12/08/22 1246: Subjective Date Seen by a Provider: Dec 08, 2022 Subjective/Events-last exam Anayeli a 77 year old female and patient of [facility] has no changes in presentation. She is not alert and oriented. Patient is resting and unable to communicate. Recieving pain medication regularly. She is on comfort care. Objective Exam Last Set of Vital Signs Vital Signs Date Time Temp Pulse Resp B/P (MAP) Pulse Ox O2 Delivery O2 Flow Rate FiO2 12/08/22 08:53 Room Air 12/06/22 19:20 4.00 12/06/22 14:30 36.0 73 20 166/74 (104) 98 Capillary Refill : I&O Intake and Output 12/08/22 00:00 Intake Total 0 ml Output Total 850 ml Balance -850 ml Intake Oral 0 ml Output Urine Total 850 ml Assessment/Plan Assessment/Plan Assess & Plan/Chief Complaint Assessment End of life care Resp failure Recent CVA Dysphagia Plan: End of life care Lorazepam Morphine ADRIANA OSULLIVAN DO 12/08/222028: Assessment/Plan Assessment/Plan Assess & Plan/Chief Complaint Comfort care protocol Supervisory-Addendum Brief Verification & Attestation Participated in pt care: history, MDM, physical Personally performed: exam, history, MDM, supervision of care Care discussed with: Medical Student Procedures: n/a Results interpretation: Verified all documentation Verification and Attestation of Medical Student E/M Service A medical student performed and documented this service in my presence. I reviewed and verified all information documented by the medical student and made modifications to such information, when appropriate. I personally performed the physical exam and medical decision making. Adriana Osullivan, Dec 08, 2022,20:28 JEREMY WELSH Dec 08, 2022 12:46 ADRIANA OSULLIVAN DO Dec 08, 2022 20:29
[2022-12-09] MEDS: morphine INJ 4 MG/ML 1 ML (VIAL/SYRINGE) IV PRN ×2 (02:44→21:32)
--- NOTE | 2022-12-09 09:13 | Progress Note ---
JEREMY WELSH 12/09/2213: Subjective Date Seen by a Provider: Dec 09, 2022 Time Seen by a Provider: 09:12 Subjective/Events-last exam Anayeli a 77 year old female and patient of [facility] has no changes in presentation. She is more alert today. Patient nods her head when I ask if shes comfortable. Patient is resting and unable to verbally communicate. Recieving pain medication regularly. She is on comfort care. Focused Exam Sepsis Stage: Ruled Out Objective Exam Last Set of Vital Signs Vital Signs Date Time Temp Pulse Resp B/P (MAP) Pulse Ox O2 Delivery O2 Flow Rate FiO2 12/08/22 23:00 Nasal Cannula 4.00 12/06/22 14:30 36.0 73 20 166/74 (104) 98 Capillary Refill : I&O Intake and Output 12/09/22 00:00 Intake Total 0 ml Output Total 875 ml Balance -875 ml Intake Oral 0 ml Output Urine Total 875 ml Assessment/Plan Assessment/Plan Assess & Plan/Chief Complaint Assessment End of life care Resp failure Recent CVA Dysphagia Plan: End of life care Lorazepam Morphine ADRIANA OSULLIVAN DO 12/10/222103: Subjective Subjective/Events-last exam Awaiting placement Patient more alert but end-of-life care we will continue at bedside Objective Exam General: Alert, Other (Lethargic) Assessment/Plan Assessment/Plan Assess & Plan/Chief Complaint End-of-life care Supervisory-Addendum Brief Verification & Attestation Participated in pt care: history, MDM, physical Personally performed: exam, history, MDM, supervision of care Care discussed with: Medical Student Procedures: n/a Results interpretation: Verified all documentation Verification and Attestation of Medical Student E/M Service A medical student performed and documented this service in my presence. I reviewed and verified all information documented by the medical student and made modifications to such information, when appropriate. I personally performed the physical exam and medical decision making. Adriana Osullivan Dec 10, 2022,21:04 EJREMY WELSH Dec 09, 2022 09:13 ADRIANA OSULLIVAN DO Dec 10, 2022 21:04
[2022-12-09] MEDS: SCOPOLAMINE 1.5 MG PATCH TOP SCH (13:00)
--- NOTE | 2022-12-10 09:00 | Progress Note ---
JEREMY WELSH 12/10/22 0900: Subjective Date Seen by a Provider: Dec 10, 2022 Time Seen by a Provider: 08:59 Subjective/Events-last exam Anayeli a 77 year old female with no changes in presentation. She is making audible noises when I communicate with her. However, she is less alert than yesterday. She nodded her head to my questions. Receiving medications regularly. She is on comfort care. Hospital Course: This is a 77 year old female with a history of a stroke presented to [facility] via [facility]. She has been at the hospital for nine days. She originially presented to the ARU for physical rehab due to right sided weakness. Patient was continuing to have aphasia and dysphagia. On her third day in the hospital she had an aspiration episode and chest- Xray showed possible pneumonia- subsequently she was transferred to the floor. She now presents for comfort care. Patient's family is looking for a place for her to transfer. Thr ough her stay she has received morphine for her pain as well as lorazepam. Objective Exam Last Set of Vital Signs Vital Signs Date Time Temp Pulse Resp B/P (MAP) Pulse Ox O2 Delivery O2 Flow Rate FiO2 12/09/22 20:20 Room Air 12/09/22 08:00 98 12/08/22 23:00 4.00 12/06/22 14:30 36.0 73 20 166/74 (104) Capillary Refill : I&O Intake and Output 12/10/22 00:00 Intake Total 0 ml Output Total 1025 ml Balance -1025 ml Intake Oral 0 ml Output Urine Total 1025 ml General: Mild Distress HEENT: Atraumatic Lungs: Other (rales, wheezing) Heart: Regular Rate Neuro: Other (pt unable to communicate) Assessment/Plan Assessment/Plan Assess & Plan/Chief Complaint Assessment End of life care Resp failure Recent CVA Dysphagia Plan: End of life care Lorazepam Morphine ADRIANA OSULLIVAN DO 12/11/22 0433: Subjective Subjective/Events-last exam End-of-life care continues Assessment/Plan Assessment/Plan Assess & Plan/Chief Complaint Monitor closely Supervisory-Addendum Brief Verification & Attestation Participated in pt care: history, MDM, physical Personally performed: exam, history, MDM, supervision of care Care discussed with: Medical Student Procedures: n/a Results interpretation: Verified all documentation Verification and Attestation of Medical Student E/M Service A medical student performed and documented this service in my presence. I reviewed and verified all information documented by the medical student and made modifications to such information, when appropriate. I personally performed the physical exam and medical decision making. Adriana Osullivan, Dec 11, 2022,04:33 JEREMY WELSH Dec 10, 2022 09:00 ADRIANA OSULLIVAN DO Dec 11, 2022 04:33
[2022-12-10] MEDS ORDERED: MORP100S7 PO (12:23)
[2022-12-10] MEDS ORDERED: LORA2ORA PO (12:23)
--- NOTE | 2022-12-11 10:30 | Discharge Summary ---
Diagnosis/Chief Complaint Date of Admission Dec 06, 2022 at 12:30 Date of Discharge Discharge Date: Dec 11, 2022 Discharge Diagnosis Multisystem organ failure End-of-life status Reason Hospital Visit CC: End of life after failing ARU HPI: This is a 77yoWF clinic patient of [facility] who presented [facility] for end of life care after failing ARU. Discharge Summary Discharge Physical Examination Allergies: Coded Allergies: amlodipine (Verified Allergy, Intermediate, Rash, 07/15/22) Sulfa (Sulfonamide Antibiotics) (Verified Allergy, Unknown, 07/09/22) Vitals & I&Os Vital Signs Date Time Temp Pulse Resp B/P (MAP) Pulse Ox O2 Delivery O2 Flow Rate FiO2 12/11/22 18:00 36.0 73 20 166/74 92 Room Air 12/11/22 07:49 0.00 General Appearance: Other (Semicomatose) Hospital Course Was the Problem List Reviewed?: Yes Short hospital course after she was moved from ARU to fourth floor for comfort care protocol after talking to about significant decline in status. Overall patient responded to morphine and Ativan as needed for discomfort and patient was discharged to hospice respite. Discharge Home Medications: Active Scripts Active Lorazepam Intensol (Lorazepam) 2 Mg/Ml Oral.conc 1 Mg PO Q2H PRN Morphine Conc. 20mg/ml (Morphine Sulfate) 100 Mg/5 Ml (20 Mg/Ml) Solution 5 Mg PO Q2H PRN Reported Dicyclomine HCl 10 Mg Capsule 10-20 Mg PO QID Topamax (Topiramate) 25 Mg Tablet 25 Mg PO DAILY Nitroglycerin 0.4 Mg Tab.subl 0.4 Mg SL UD PRN Lisinopril 20 Mg Tablet 40 Mg PO DAILY TAKES 2 (20MG) TABS Ferrous Sulfate 325 Mg (65 Mg Iron) Tablet 325 Mg PO DAILY TAKE ON AN EMPTY STOMACH AT LEAST 1 HOUR BEFORE OR 2 HOURS AFTER FOOD Famotidine 40 Mg/5 Ml (8 Mg/Ml) Oral.susp 2.5 Ml FEEDING BID Stool Softener (Docusate Sodium) 50 Mg/5 Ml Liquid 10 Ml PO BID Clopidogrel (Clopidogrel Bisulfate) 75 Mg Tablet 75 Mg PO DAILY Clonidine HCl 0.1 Mg Tablet 0.1 Mg PO Q4H PRN Instructions to patient/family Please see electronic discharge instructions given to patient. LORENA OSULLIVAN DO Dec 11, 2022 10:30
[2022-12-11 18:00] VITALS: BP 166/74
== END 2022-12-11 18:00 | disposition hospice, inpatient (51) | DRG 951 ==
LOC: 4TH 12:30
PROVIDERS: ADMIT Internal Medicine; ATTEND Internal Medicine
DX: Z51.5 Encounter for palliative care (principal); J96.90 Respiratory failure, unspecified, unspecified whether with hypoxia or hypercapnia; R13.10 Dysphagia, unspecified; Z79.82 Long term (current) use of aspirin; Z79.899 Other long term (current) drug therapy; Z95.1 Presence of aortocoronary bypass graft; Z95.5 Presence of coronary angioplasty implant and graft; J44.9 Chronic obstructive pulmonary disease, unspecified; I25.10 Atherosclerotic heart disease of native coronary artery without angina pectoris; E78.00 Pure hypercholesterolemia, unspecified; I10 Essential (primary) hypertension; K21.9 Gastro-esophageal reflux disease without esophagitis; F41.9 Anxiety disorder, unspecified; F32.A Depression, unspecified; Z86.73 Personal history of transient ischemic attack (TIA), and cerebral infarction without residual deficits; Z87.891 Personal history of nicotine dependence; Z66 Do not resuscitate
CPT/HCPCS: 94760